=== PATIENT | female | born 1955 | race Caucasian/White ===

== ENCOUNTER 2023-09-22 11:19 | Outpatient (OUT) | payer OTHER, SELFPAY ==
--- NOTE | 2023-09-22 11:23 | XR_ITS ---
The [address] [address] Patient Name: MLEBA ZAPATA MRN: [id number] date: 1955 Sex: F Assigned Patient Location: [facility] Current Patient Location: Accession/Order Number: [id number] Exam Date: 09/22/2023 11:25 Report Date: 09/23/2023 07:30 At the request of: DENIA DIETRICH Procedure: XR wrist RT min 3V EXAM: XR wrist RT min 3V HISTORY: Intartic Fracture Of Right Radius COMPARISON: 09/10/2023. TECHNIQUE: Routine views of the XR wrist RT min 3V FINDINGS/ XR/XR wrist RT min 3V IMPRESSION: 1. Casted upper extremity. No significant change in radiographic appearance of the minimally displaced distal radial fracture. 2. Soft tissues not well assessed. 3. Advanced first CMC osteoarthritis. Mild degenerative changes at the DRUJ and triscaphe joint. Electronically authenticated by: SAMEER DUMONT Date: 09/23/2023 07:30
== END 2023-09-22 11:20 | disposition home or self-care (01) ==
LOC: RAD 11:19
PROVIDERS: Visit Provider Orthopaedic Surgery
DX: S52.571A Other intraarticular fracture of lower end of right radius, initial encounter for closed fracture (principal)
CPT/HCPCS: 73110

== ENCOUNTER 2023-09-29 11:01 | Outpatient (OUT) | payer OTHER, SELFPAY ==
--- NOTE | 2023-09-29 11:05 | XR_ITS ---
The [address] [address] Patient Name: MELBA ZAPATA MRN: [id number] date: 1955 Sex: F Assigned Patient Location: [facility] Current Patient Location: [facility] Accession/Order Number: [id number] Exam Date: 09/29/2023 11:10 Report Date: 09/30/2023 08:39 At the request of: DENIA DIETRICH Procedure: XR wrist RT min 3V PROCEDURE: XR wrist RT min 3V HISTORY: Other Intartic Fracture Of Lower End of Radius S52.571A [; follow-up right wrist fracture COMPARISON: XR wrist right 09/22/2023 FINDINGS: BONES:Stable distal radial metaphyseal fracture with slight dorsal angulation of the distal articular surface. Degenerative changes of the first carpal-metacarpal joint. SOFT TISSUES:Images were obtained through cast material which slightly limits evaluation. EFFUSION:None visible. OTHER: Negative. XR/XR wrist RT min 3V IMPRESSION: 1. Grossly stable alignment and ongoing bone healing of distal right radius fracture. Electronically authenticated by: DENIA JOHNS Date: 09/30/2023 08:39
== END 2023-09-29 11:02 | disposition home or self-care (01) ==
LOC: RAD 11:02
PROVIDERS: Visit Provider Orthopaedic Surgery
DX: S52.571A Other intraarticular fracture of lower end of right radius, initial encounter for closed fracture (principal)
CPT/HCPCS: 73110

== ENCOUNTER 2023-09-29 13:26 | Outpatient (OUT) | payer OTHER, SELFPAY ==
--- NOTE | 2023-09-29 13:49 | ECG_ITS ---
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
--- NOTE | 2023-09-29 14:25 | XR_ITS ---
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 CLINICAL INDICATION: 68 years Female Preop exam FINDINGS: The cardiomediastinal silhouette and pulmonary vasculature are within normal limits. There is moderate diffuse coarse increased markings throughout all lung ramos. This may represent prominent chronic lung changes. Other etiologies such as some diffuse interstitial fluid or some diffuse interstitial inflammatory infiltrate are possible but considered less likely, especially considering that this is described as a preop exam . There is no evidence of pleural effusion or pneumothorax. XR/XR chest 2V IMPRESSION: Moderate diffuse coarse increased markings throughout all lung ramos most likely represents chronic lung changes. Electronically authenticated by: MARLENY ALBRIGHT Date: 09/30/2023 07:24
[2023-09-29 14:41] LABS: Basophils Absolute Auto 0.1 10^3/uL (0.0-0.1); Basophils Percent Auto 0.8 % (0.2-2.0); Eosinophils Absolute Auto 0.3 10^3/uL (0.0-0.7); Eosinophils Percent Auto 2.1 % (0.9-7.0); Hematocrit 45.8 % (36.0-48.0); Hemoglobin 14.8 g/dL (12.0-16.0); Immature Granulocytes Abs Auto 0.03 10^3/uL (0.00-0.03); Immature Granulocytes Pct Auto 0.2 % (0.0-0.5); Lymphocytes Absolute Auto 2.9 10^3/uL (1.2-3.8); Lymphocytes Percent Auto 23.3 % (20.5-60.0); Mean Corpuscular HGB Conc 32.3 g/dL (29.9-35.2); Mean Corpuscular Hemoglobin 30.8 pg (26.7-34.0); Mean Corpuscular Volume 95.2 fL (81.0-99.0); Mean Platelet Volume 9.1 fL (9.5-13.5); Monocytes Absolute Auto 0.7 10^3/uL (0.3-0.8); Monocytes Percent Auto 5.4 % (1.7-12.0); Neutrophils Absolute Auto 8.5 10^3/uL (1.4-6.5); Neutrophils Percent Auto 68.2 % (43.0-75.0); Platelet Count 305 10^3/uL (150-450); Red Blood Count 4.81 10^6/uL (4.20-5.40); Red Cell Distribution Width 12.7 % (11.0-15.0); White Blood Count 12.5 10^3/uL (4.0-11.0)
[2023-09-29 15:26] LABS: Anion Gap 12.2; BUN Creatinine Ratio 15.7; Carbon Dioxide 25.3 mmol/L (21.0-32.0); Chloride 107 mmol/L (98-107); Estimated GFR (African America >60 (>=60); Estimated GFR (Non-African Ame >60 (>=60); Glucose 95 mg/dL (74-106); Potassium 3.5 mmol/L (3.5-5.1); Sodium 141 mmol/L (136-145)
== END 2023-09-29 13:27 | disposition home or self-care (01) ==
LOC: PST 13:30
PROVIDERS: Visit Provider Orthopaedic Surgery
DX: Z01.812 Encounter for preprocedural laboratory examination (principal); S52.571A Other intraarticular fracture of lower end of right radius, initial encounter for closed fracture
CPT/HCPCS: 71046; 80048; 85025; 93005

== ENCOUNTER 2023-10-13 09:33 | Outpatient (OUT) | payer OTHER, SELFPAY ==
--- NOTE | 2023-10-13 09:46 | XR_ITS ---
[address] [address] Patient Name: MELBA ZAPATA MRN: [id number] date: 1955 Sex: F Assigned Patient Location: [facility] Current Patient Location: [facility] Accession/Order Number: [id number] Exam Date: 10/13/2023 09:40 Report Date: 10/13/2023 10:41 At the request of: DENIA DIETRICH Procedure: XR wrist RT min 3V PROCEDURE: XR wrist RT min 3V COMPARISON: 09/29/2023, 10/03/2023 HISTORY: Intra Articular Fracture Of Distal End Of Right Radius S52.5 FINDINGS: BONES:Again demonstrated is a complex intra-articular fracture of the distal radius with internal fixation utilizing a plate and screws. Anatomic alignment. No acute fracture, dislocation or mechanical failure. Degenerative changes with joint space narrowing marginal osteophyte formation most significant at the first metacarpal joint SOFT TISSUES:Negative. No visible soft tissue swelling. EFFUSION:None visible. OTHER: Negative. XR/XR wrist RT min 3V IMPRESSION: Stable radius fracture with internal fixation Electronically authenticated by: ROSHNI ABBOTT Date: 10/13/2023 10:41
== END 2023-10-13 09:34 | disposition home or self-care (01) ==
LOC: RAD 09:33
PROVIDERS: Visit Provider Orthopaedic Surgery
DX: S52.571D Other intraarticular fracture of lower end of right radius, subsequent encounter for closed fracture with routine healing (principal)
CPT/HCPCS: 73110

== ENCOUNTER 2023-11-10 10:38 | Outpatient (OUT) | payer OTHER, SELFPAY ==
--- NOTE | 2023-11-10 | XR_ITS ---
The [address] [address] Patient Name: MELBA ZAPATA MRN: [id number] date: 1955 Sex: F Assigned Patient Location: [facility] Current Patient Location: [facility] Accession/Order Number: [id number] Exam Date: 11/10/2023 10:40 Report Date: 11/10/2023 10:54 At the request of: DENIA DIETRICH Procedure: XR wrist RT 2V PROCEDURE: XR wrist RT 2V COMPARISON: 10/13/2023 HISTORY: RIGHT WRIST PAIN FINDINGS: BONES:Stable complex distal radius fracture with internal fixation utilizing a bulbar plate and screws. Anatomic alignment. Moderate degenerative changes most significant at the first carpometacarpal joint SOFT TISSUES:Negative. No visible soft tissue swelling. EFFUSION:None visible. OTHER: Negative. XR/XR wrist RT 2V IMPRESSION: Stable internal fixation of a distal radius fracture Electronically authenticated by: ROSHNI ABBOTT Date: 11/10/2023 10:54
--- OUTSIDE RECORDS SUMMARY | 2023-11-10 10:42 | XMS_ITS | CCD ---
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 Name Role Phone RUBENS SERNA Monik Unavailable Unavailable CAMRYN BARBOSA Unavailable Unavailable Martha Hathaway Primary Care Physician Nia Wolff Unavailable Unavailable DR DENIA JOHNS Consulting Unavailable MIGUEL COLEMAN Attending Unavailable MIGUEL COLEMAN Admitting Unavailable MIGUEL COLEMAN Consulting Unavailable DARIO VANG Attending Unavailable DENIA DIETRICH Referring Unavailable DENIA DIETRICH Admitting Unavailable DENIA DIETRICH Attending Unavailable Miguel Atkins Primary Care Physician [phone] Beatrice Barnes Attending Unavailable MD Wilbert Miguel Attending Unavailable MD Wilbert Miguel Attending Unavailable Ricki VAZQUEZ Attending Unavailable Som Willis Attending Unavailable Rai Gordillo Attending Unavailable MD Wilbert Miguel Attending Unavailable Allergies Allergy Classification Reported Allergen(s) Allergy Type Date of Onset Reaction(s) Facility (7 sources) Contrast media; Translations: [CONTRAST DYE] Propensity to adverse reactions to drug (disorder) 7 Swelling (finding) [facility] Repository (9 sources) Penicillins; Translations: [PENICILLINS] Propensity to adverse reactions to drug (disorder) 7 H/O: blackout (context-depend ent category) [facility] Repository (6 sources) adhesives; Translations: [adhesives] Allergy to substance redness [facility] (1 source) Iodine (And Iodine Containting Drugs) Drug allergy (disorder) [address] [facility] Repository (1 source) IODINATED CONTRAST MEDIA; Translations: [IODINATED CONTRAST MEDIA] Propensity to adverse reactions to drug (disorder) 7 [facility] Repository Medications Current Medications Medication Drug Class(es) Dates Sig (Normalized) Sig (Original) amLODIPine 5 mg oral tablet (1 source) Dihydropyridine Calcium Channel Cyrus Start: 05-17-2020 take 1 tablet by mouth once daily Norvasc 5 mg Tab 5 mg = 1 tab(s), Oral, Daily, # 90 cap(s), Refills(s) 3, Pharmacy: [facility], 170.1, cm, 12/28/19 11:34:00 EST, Height/Length Measured, 106, kg, 10/06/19 11:07:00 EST, Weight Measured Start Date: 05/17/20 Status: Ordered cholecalciferol 0.05 mg oral capsule (1 source) Vitamin D Start: 04-18-2022 End: 08-16-2022 take 1 capsule by mouth once daily at mealtime cholecalciferol 2000 intl units oral capsule 50 mcg = 1 cap(s), Oral, Daily, with food., X 60 day(s), # 90 cap(s), Refills(s) 1, Pharmacy: [facility], 163.8, cm, 04/18/22 15:45:00 EDT, Height/Length Dosing, 93.7, kg, 04/18/22 15:45:00 EDT, Weight Dosing Start Date: 04/18/22 Stop Date: 08/16/22 Status: Ordered doxycycline monohydrate 100 mg oral capsule (1 source) Tetracycline-class Drug Start: 08-21-2023 End: 08-28-2023 take 1 capsule by mouth twice daily doxycycline monohydrate 100 mg oral capsule 100 mg = 1 cap(s), Oral, BID, X 7 day(s), # 14 cap(s), Refills(s) 0, Pharmacy: [facility], 167, cm, 08/21/23 14:00:00 EDT, Height/Length Dosing, 100, kg, 08/21/23 14:00:00 EDT, Weight Dosing Start Date: 08/21/23 Stop Date: 08/28/23 Status: Ordered DULoxetine 60 mg delayed release oral capsule (4 sources) Serotonin and Norepinephrine Reuptake Inhibitor Start: 08-12-2023 take 1 capsule by mouth once daily duloxetine 60 mg oral delayed release capsule 60 mg = 1 cap(s), Oral, Daily, # 90 cap(s), Refills(s) 0, Pharmacy: [facility], 163, cm, 10/21/22 13:43:00 EST, Height/Length Dosing, 98.4, kg, 10/21/22 13:43:00 EST, Weight Dosing Start Date: 08/12/23 Status: Ordered Start: 04-18-2022 take 1 capsule by [facility] once daily DULoxetine 60 mg Cap-EC 60 mg = 1 cap(s), Oral, Daily, # 90 cap(s), Refills(s) 3, Pharmacy: [facility], 163.8, cm, 04/18/22 15:45:00 EDT, Height/Length Dosing, 93.7, kg, 04/18/22 15:45:00 EDT, Weight Dosing Start Date: 04/18/22 Status: Ordered Start: 05-18-2020 take 1 capsule by [facility] once daily DULoxetine 40 mg oral delayed release capsule 40 mg, Oral, Daily, # 90 cap(s), Refills(s) 1, Pharmacy: [facility], 170.1, cm, 05/18/20 17:03:00 EDT, Height/Length Measured, 112.3, kg, 05/18/20 17:35:00 EDT, Weight Measured Start Date: 05/18/20 Status: Ordered DULoxetine 60 mg Cap-EC (2 sources) Start: 05-02-2022 take 1 capsule by mouth once daily DULoxetine 60 mg Cap-EC 60 mg = 1 cap(s), Oral, Daily, # 90 cap(s), Refills(s) 3, Pharmacy: [facility]/pharmacy #[id number], 163.8, cm, 04/18/22 15:45:00 EDT, Height/Length Dosing, 93.7, kg, 04/18/22 15:45:00 EDT, Weight Dosing Start Date: 05/02/22 Status: Ordered Start: 08-30-2021 take 1 capsule by [facility] once daily DULoxetine 60 mg Cap-EC 60 mg = 1 cap(s), Oral, Daily, # 30 cap(s), Refills(s) 6, Pharmacy: [facility], 170, cm, 08/30/21 14:36:00 EDT, Height/Length Dosing, 89.2, kg, 08/30/21 14:36:00 EDT, Weight Dosing Start Date: 08/30/21 Status: Ordered fluticasone propionate 0.05 mg/actuat metered dose nasal spray (2 sources) Corticosteroid Start: 10-21-2022 take 1 spray(s) nasal route twice daily Flonase 0.05 mg/inh [place] 1 spray(s), Nasal, BID, 16 gram, Refill(s) 0, each nostril, [facility], 163, cm, 10/21/22 13:43:00 EST, Height/Length Dosing, 98.4, kg, 10/21/22 13:43:00 EST, Weight Dosing Start Date: 10/21/22 Status: Ordered Start: 10-26-2020 fluticasone 0. 05 mg/inh Nasal [place] 2 spray(s), Nasal, Daily Congestion, 16 gram, Refill(s) 1, each nostril, [facility], 170, cm, 10/26/20 7:12:00 EST, Height/Length Dosing, 102, kg, 10/26/20 7:12:00 EST, Weight Dosing Start Date: 10/26/20 Status: Ordered fluticasone 0.05 mg/inh [place]asa [place] (1 source) Start: 10-26-2020 fluticasone 0. 05 mg/inh Nasal [place] 2 spray(s), Nasal, Daily Congestion, 16 gram, Refill(s) 1, each nostril, [facility], 170, cm, 10/26/20 7:12:00 EST, Height/Length Dosing, 102, kg, 10/26/20 7:12:00 EST, Weight Dosing Start Date: 10/26/20 Status: Ordered Mucinex DM 30 mg-600 mg Tab- ER (1 source) Start: 10-21-2022 End: 10-24-2022 Mucinex DM 30 mg-600 mg Tab- ER 1 tab(s), Oral, q12hr Congestion for 3 day(s), 6 tab(s), Refill(s) 0, [facility], 163, cm, 10/21/22 13:43:00 EST, Height/Length Dosing, 98.4, kg, 10/21/22 13:43:00 EST, Weight Dosing Start Date: 10/21/22 Stop Date: 10/24/22 Status: Ordered Completed/Discontinued Medications Medication Drug Class(es) Dates Sig (Normalized) Sig (Original) Blood pressure cuff (3 sources) Start: 08-30-2021 Blood pressure cuff Blood pressure cuff, See Instructions, 1 EA, 0, Please dispense 1 blood pressure cuff., [facility], Supply, 170, cm, 08/30/21 14:36:00 EDT, Height/Length Dosing, 89.2, kg, 08/30/21 14:36:00 EDT, Weight Dosing Start Date: 08/30/21 Status: Ordered Problems Active Problems Problem Classification Problem Date Documented Date Episodic/Chronic Abdominal pain (5 sources) Flank pain 08-24-2019 Episodic Anxiety disorders (6 sources) Anxiety; Translations: [Anxiety disorder] Onset: 2 05-25-2019 Chronic Asthma (5 sources) Asthma 12-14-2018 Chronic Calculus of urinary tract (5 sources) Kidney stone 09-21-2019 Episodic Diabetes mellitus without complication (6 sources) Hyperglycemia; Translations: [Hyperglycemia, unspecified] Onset: 3 05-25-2019 Episodic Diseases of mouth; excluding dental (1 source) Sialoadenitis; Translations: [Sialoadenitis, unspecified] Onset: 3 Episodic Disorders of lipid metabolism (6 sources) Mixed hyperlipidemia; Translations: [Mixed hyperlipidemia] Onset: 2 07-25-2020 Chronic E Codes: Fall (1 source) Fall; Translations: [Unspecified fall, initial encounter] Onset: 3 Episodic Essential hypertension (7 sources) Benign essential hypertension; Translations: [Essential hypertension] Onset: 2 05-25-2019 Chronic Fracture of upper limb (2 sources) Other intraarticular fracture of lower end of right radius, initial encounter for closed fracture; Translations: [Other intraarticular fracture of lower end of right radius, initial encounter for closed fracture] Onset: 3 Episodic Genitourinary symptoms and ill-defined conditions (5 sources) Urge incontinence of urine 04-28-2019 Chronic Genitourinary symptoms and ill-defined conditions (10 sources) Nocturia; Translations: [Urgent desire to urinate] 04-28-2019 Episodic Hypertension with complications and secondary hypertension (2 sources) Hypertensive heart disease without heart failure; Translations: [Hypertensive heart disease without heart failure] Onset: 3 Chronic Immunizations and screening for infectious disease (1 source) Vaccination given; Translations: [Encounter for immunization] Onset: 3 Episodic Mood disorders (7 sources) Depressive disorder; Translations: [Major depressive disorder] Onset: 2 05-25-2019 Chronic Nutritional deficiencies (6 sources) Vitamin D deficiency; Translations: [Vitamin D deficiency, unspecified] Onset: 2 05-25-2019 Chronic Osteoarthritis (5 sources) Osteoarthritis of hip 08-09-2019 Chronic Other bone disease and musculoskeletal deformities (5 sources) Osteopenia 06-03-2019 Episodic Other bone disease and musculoskeletal deformities (1 source) Disorder of bone; Translations: [Other specified disorders of bone density and structure, unspecified site] Onset: 3 Episodic Other connective tissue disease (4 sources) Pain in right foot; Translations: [PAIN IN RIGHT FOOT] Onset: 2 Episodic Other diseases of kidney and ureters (5 sources) Hydronephrosis 09-21-2019 Episodic Other injuries and conditions due to external causes (1 source) Personal history of (healed) traumatic fracture; Translations: [Personal history of (healed) traumatic fracture] Onset: 3 Episodic Other non-traumatic joint disorders (5 sources) Hip pain 05-25-2019 Episodic Other nutritional; endocrine; and metabolic disorders (6 sources) Body mass index 30+ - obesity 06-22-2020 Chronic Other nutritional; endocrine; and metabolic disorders (1 source) Obese class I; Translations: [Body mass index (BMI) 34.0-34.9, adult] Onset: 2 Chronic Other nutritional; endocrine; and metabolic disorders (10 sources) Obesity; Translations: [Obesity, unspecified] Onset: 2 Chronic Other nutritional; endocrine; and metabolic disorders (2 sources) Obese class II; Translations: [Body mass index (BMI) 37.0-37.9, adult] Onset: 2 Chronic Other screening for suspected conditions (not mental disorders or infectious disease) (2 sources) Abnormal electrocardiogram [ECG] [EKG]; Translations: [Abnormal electrocardiogram (ECG) (EKG)] Onset: 3 Episodic Other skin disorders (5 sources) Mucous membrane dryness 09-24-2021 Episodic Other upper respiratory disease (1 source) Nasal congestion; Translations: [Nasal congestion] Onset: 2 Episodic Other upper respiratory disease (3 sources) Congestion of nasal sinus 10-21-2022 Episodic Other upper respiratory infections (1 source) Chronic sinusitis; Translations: [Chronic sinusitis, unspecified] Onset: 3 Chronic Residual codes; unclassified (5 sources) Tobacco user 08-30-2021 Episodic Residual codes; unclassified (1 source) Patient encounter status; Translations: [Other specified health status] Onset: 2 Episodic Residual codes; unclassified (1 source) Other specified postprocedural states; Translations: [Other specified postprocedural states] Onset: 3 Episodic Screening and history of mental health and substance abuse codes (1 source) H/O: Disorder; Translations: [Personal history of nicotine dependence] Onset: 3 Episodic Spondylosis; intervertebral disc disorders; other back problems (5 sources) Displacement of cervical intervertebral disc 05-25-2019 Chronic Spondylosis; intervertebral disc disorders; other back problems (5 sources) Neck pain; Translations: [Cervicalgia] Onset: 2 Episodic Substance-related disorders (12 sources) Smoker; Translations: [Nicotine dependence] Onset: 2 05-18-2020 Chronic Comment on above: Added secondary to d ocumentation in Social History. Systemic lupus erythematosus and connective tissue disorders (5 sources) Systemic sclerosis 03-22-2019 Chronic Comment on above: inactive Unclassified (5 sources) Clinical finding absent 08-30-2021 Past or Other Problems Problem Classification Problem Date Documented Da te Episodic/Chronic Unclassified (1 source) Exposure to 2019 novel coronavirus; Translations: [Contact with and (suspected) exposure to COVID19] Results Test Name Value Interpretation Reference Range Facil ity Consent for Flu Vaccineon Consent for Flu Vaccine [id number] Normal [facility] Family Medicine Office/Clini c Noteon 10-31-2023 Family Medicine Office/Clinic Note Chief Complaint Subsequent Medicare Wellness Visit Review of Systems PHQ Score Initial Depression Screen Score: 1 SCORE Physical Exam Vitals & Measurements T: 36.9 ?C(Oral) HR: 74(Peripheral) BP: 130/86 SpO2: 95% HT: 162.56 cm HT: 64 in WT: 100.5 kg WT: 221.1 lb BMI: 38.03 Assessment/Plan 1. Encounter for annual general medical examination with abnormal findings in adult (Z00.01: Encounter for general adult medical examination with abnormal findings) The patient was given a customized and personalized print out of all the current AHRQ USPSTF?s recommendations for preventative services and all current CDC recommended immunizations, relevant risk recommendations and the following patient brochures were given. Reviewed Medicare Prevention Services checklist. CDC-Falls Prevention and home safety screening reviewed. Patient had fall last month, ED visit and wrist fracture with surgery needed. Does voice worry about falling. Exhibits no problems with sitting, standing or ambulation today. Patient aware with keeping walk way area free of clutter to prevent tripping and/or falling. [place] Advance Directives reviewed. Packet received in the past, encouraged to completes and have scanned to chart. Patient denies any problems with ADL?s and Instrumental ADL?s. Cognitive screening completed with memory and clock face drawing. No deficits noted. Immunization record reviewed, discussed Shingrix vaccine with educational handout and availability. COVID vaccines have been received. Allergies and medications reviewed and up to date. No concerns with taking medication as prescribed. Reviewed OTC medications, medication list up to date. Blood tests were reviewed: Discussed what tests need to be updated. No labs ordered with today's visit. Will discuss with provider at next visit. No concerns with bowel/ bladder, denies family history of cancer. Colonoscopy last completed with Dr Ruvalcaba, will follow up as needed. Reviewed pain symptoms : pain to right wrist, recovery from surgery and knee pain, needs a replacement, no pain medications taken. Declines referrals at this time, wants to complete wrist recovery. Mammogram and Dexa scan declined at this time, will follow up at a later time. Reviewed all outside providers that patient follows. Last visit summary notes available in chart and/or have been requested. Patient drinks alcohol 1-2 times yearly, 1 drink. 8 minutes spent with screening and documentation. Audit score . Follow up scheduled with a new PCP in the New Year, closer for her. AWV has been scheduled, 07/13/2024. Abnormal findings with fall risk. 2. Depression (F32.A: Depression, unspecified) PHQ-9 completed with score 6. Taking Cymbalta daily as ordered, states effectiveness of medication. Denies concerns, voices no suicidal ideations. Encouraged to review signs and symptoms to monitor for and report to PCP. Will continue to follow up as needed. Medications managed with office visits, OPIOD risk with OARRS completed with PCP. 3. Benign essential HTN (I10: Essential (primary) hypertension) No medications taken for Hypertension at this time. BP is not monitored at home, Patient does voice understanding with signs and symptoms to monitor for. HTN reviewed with importance of keeping BP <140/90 to prevent increased cardiovascular risks. DASH diet reviewed with importance to lower salt intake, eat more chicken, fish and lean white meats. Will follow up as needed. 4. Fall within last year (W19.XXXA: Unspecified fall, initial encounter) Fall Risk Assessment reviewed with abnormal findings. Discussed referral to PT for strengthening and/or balance needs. Will start Therapy in the near future for wrist recovery from fall. Plan of care reviewed : Upon standing up, do not start ambulating quickly and be aware of feeling dizzy which could increase fall risk. Patient to be aware of surroundings at all times. Make sure proper lighting is on, do not ambulate at night in the dark. Remove area rugs that are in walkway to prevent tripping. Always use caution with stairs, check banister railing for sturdiness. Fall safety and prevention reviewed, will continue to monitor during visits. 5. Pneumococcal vaccine administered (Z23: Encounter for immunization) Pneumovax 23 vaccine administered to left deltoid at today?s visit. Patient tolerated well, denies concerns. Signed consent form on file in patient?s chart. Educational handout provided. 6. Hyperglycemia (R73.9: Hyperglycemia, unspecified) Screened for type 2 diabetes. Risk score: 7. Patient does have a family history with Diabetes. BS reviewed with patient reminded to follow ADA dietary recommendations. Monitor portion control with carbs/fats/sat. fats. Will continue to follow up with labs as needed. 7. Cigarette smoker within last 12 months (Z87.891: Personal history of nicotine dependence) It is strongly recommend to quit tobacco use. Cigarette smoking harms nearly every organ of the body, causes many disease (more content not included)... [facility] Comment on above: Result Comment: Electronically Signed By : SIENNA CONSTANTINO, Aakash Ruggiero\.br\Date and Time Signed: 10/31/23 12:38 EST\.br\Electronically Co-Signed By: Tiffanie Yi LPN\.br\Date and Time Co-Signed: 10/30/23 16:16 EST [place] 10-31-2023 Screens [id number] Normal [facility] Ambulatory Visit Summaryon 1 12-31-2022 Ambulatory Visit Summary MELBA TEJADA :1955 Visit Date:10/30/2023 Ambulatory Visit Instructions Your Diagnosis Encounter for annual general medical examination with abnormal findings in adult Depression Benign essential HTN Fall within last year Pneumococcal vaccine administered Hyperglycemia Cigarette smoker within last 12 months Osteopenia BMI 38.0-38.9,adult Obesity due to excess calories Your Care Team Attending Physician - Miguel Atkins MD Primary Care Physician - Miguel Atkins MD This Is Your Medications List duloxetine (duloxetine 60 mg oral delayed release capsule) Procedures Performed Cataract extraction and insertion of intraocular lens (10/12/2019), Cataract extraction and insertion of intraocular lens (09/28/2019), Total hip replacement (08/31/2019), Epidural injection of cervical spine using fluoroscopic guidance (05/18/2019), Epidural injection of cervical spine using fluoroscopic guidance (05/18/2019), cysto, left stent removal (04/01/2019), cysto, stone extraction, left stent placement (03/22/2019), CYSTOSCOPY, LEFT RETROGRADE, STONE EXTRACTION WITH BASKET , LEFT URETERAL STENT INSERTION (03/22/2019), Repair of hammer toe (12/24/2018), Bunionectomy (11/05/2018), Left hip steroid injection (04/13/2018), Transforaminal Epidural Steriod Injection Lt. L4, L5 (03/16/2018), Injection of hip using fluoroscopic guidance (11/05/2017), transforimanal Epidural steriod injection (05/04/2017), cysto lt retrograde lt ureteroscopy holmium laser fragment removal of stone lt j stent with string. (10/30/2016), Excision of anterior tongue lesion with repair (10/09/2016), Appendectomy, Colonoscopy, Lithotripsy, Ovarian cystectomy, Suspension of bladder, TUBAL LIGATION. Discharge Vitals Temperature (Oral) 36.9 ?C Heart Rate (Peripheral) 74 Blood Pressure 130/86 Height 162.56 cm Height 64 in Weight 100.5 kg Weight 221.1 lb BMI 38.03 What to do next Scheduled Follow-Up Appointments Friday 1:15 PM EST With: Where: [facility] Friday 4:00 PM EST With: Beatrice Ingram Where: [facility] Normal [address], [place] [address]- \.br\ Medications\.br \ What How Much When Why Instructions\.b r\ Unchanged duloxetine (duloxetine 60 mg oral delayed release capsule) 1 Capsules By Mouth Every day Anxiety Depression\.br\ Medications and Immunizations Administered\.b r\ Given\.br\ Pneumovax 23, 0.5 mL, IntraMuscular. For:\.br\ pneumococcal 23-valent vaccine, IntraMuscular\. br\ Allergies\.br\ Contrast Dye (Swelling, Hives)\.br\ adhesives (redness)\.br\ penicillins (Passed out, Hives)\.br\ Problems\.br\ Ongoing - Any problem that you are currently receiving treatment for.\.br\ Benign essential HTN\.br\ Class 1 obesity with body mass index (BMI) of 34.0 to 34.9 in adult\.br\ Depression\.br\ Flank pain\.br\ Herniated cervical disc\.br\ Hip pain, left\.br\ Hydronephrosis\ .br\ Hyperglycemia\. br\ Hyperlipidemia\ .br\ Kidney stones\.br\ Neck pain on right side\.br\ Nocturia\.br\ Obesity due to excess calories\.br\ Osteopenia\.br\ Patient had no falls in past year\.br\ Sinus congestion\.br\ Smoker\.br\ Urge incontinence\.b r\ Urinary urgency\.br\ Vitamin D deficiency\.br\ Historical - Any problem that you are no longer receiving treatment for.\.br\ Anxiety\.br\ Asthma\.br\ BMI 37.0-37.9, adult\.br\ Sicca syndrome\.br\ Smoker\.br\ Tobacco abuse\.br\ Patient Survey\.br\ You may receive a survey via text or e-mail asking about your office visit. Please share your experience with us by completing your survey. We appreciate your feedback and thank you for choosing us for your care.\.br\ Education Materials\.br\ Pneumococcal Polysaccharide Vaccine (PPSV23): What You Need to Know\.br\ 1. Why get vaccinated?\.br \ Pneumococcal polysaccharide vaccine (PPSV23) can prevent pneumococcal disease.\.br\ Pneumococcal disease refers to any illness caused by pneumococcal bacteria. These bacteria can cause many types of illnesses, including pneumonia, which is an infection of the lungs. Pneumococcal bacteria are one of the most common causes of pneumonia.\.br\ Besides pneumonia, pneumococcal bacteria can also cause:\.br\ ? \.br\ Ear infections\.br\ ? \.br\ Sinus infections\.br\ ? \.br\ Meningitis (infection of the tissue covering the brain and spinal cord)\.br\ ? \.br\ Bacteremia (bloodstream infection)\.br\ Anyone can get pneumococcal disease, but children under 2 years of age, people with certain medical conditions, adults 65 years or older, and cigarette smokers are at the highest risk.\.br\ Most pneumococcal infections are mild. However, some can result in long-term problems, such as brain damage or hearing loss. Meningitis, bacteremia, and pneumonia caused by pneumococcal disease can be fatal.\.br\ 2. PPSV23\.br\ PPSV23 protects against 23 types of bacteria that cause pneumococcal disease.\.br\ PPSV23 is recommended for:\.br\ ? \.br\ All adults 65 years or older,\.br\ ? \.br\ Anyone 2 years or older with certain medical conditions that can lead to an increased risk for pneumococcal disease.\.br\ Most people need only one dose of PPSV23. A second dose of PPSV23, and another type of pneumococcal vaccine called PCV13, are recommended for certain high-risk groups. Your health care provider can give you more information.\.b r\ People 65 years or older should get a dose of PPSV23 even if they have already gotten one or more doses of the vaccine before they turned 65.\.br\ 3. Talk with your health care provider\.br\ Tell your vaccine provider if the person getting the vaccine:\.br\ ? \.br\ Has had an allergic reaction after a previous dose of PPSV23, or has any severe, life-threatenin g allergies.\.br\ In some cases, your health care provider may decide to postpone PPSV23 vaccination to a future visit.\.br\ People with minor illnesses, such as a cold, may be vaccinated. People who are moderately or severely ill should usually wait until they recover before getting PPSV23.\.br\ Your health care provider can give you more information.\.b r\ 4. Risks of a vaccine reaction\.br\ ? \.br\ Redness or pain where the shot is given, feeling tired, fever, or muscle aches can happen after PPSV23.\.br\ People sometimes faint after medical procedures, including vaccination. Tell your provider if you feel dizzy or have vision changes or ringing in the ears.\.br\ As with any medicine, there is a very remote chance of a vaccine causing a severe allergic reaction, other serious injury, or .\.br\ 5. What if there is a serious problem?\.br\ An allergic reaction could occur after the vaccinated person leaves the clinic. If you see signs of a severe allergic reaction (hives, swelling of the face and throat, difficulty breathing, a fast heartbeat, dizziness, or weakness), call 9--1 and get the person to the nearest hospital.\.br\ For other signs that concern you, call your health care provider.\.br\ Adverse reactions should be reported to the Vaccine Adverse Event Reporting System (VAERS). Your health care provider will usually file this report, or you can do it yourself. Visit the VAERS website at www.vaers.[facility]. ov or call . VAERS is only for reporting reactions, and VAERS staff do not give medical advice.\.br\ 6. How can I learn more?\.br\ ? \.br\ Ask your health care provider.\.br\ ? \.br\ Call your local or state health department.\.br \ ? \.br\ Contact the Centers for Disease Control and Prevention (CDC):\.br\ ? \.br\ Call (1-540-OIO-INFO ) or\.br\ ? \.br\ Visit CDC's website at www.cdc.gov/vac cines\.br\ Source: CDC Vaccine Information Statement PPSV23 Vaccine (09/01/2019)\.b r\ This same material is available at www.cdc.gov for no charge.\.br\ This information is not intended to replace advice given to you by your health care provider. Make sure you discuss any questions you have with your health care provider.\.br\ Document Revised: 09/18/2022 Document Reviewed: 07/22/2022 [employer] Patient Education ? 2022 [employer].br\ Understanding Your Risk for Falls\.br\ Each year, millions of people have serious injuries from falls. It is important to understand your risk for falling. Talk with your health care provider about your risk and what you can do to lower it. There are actions you can take at home to lower your risk and prevent falls.\.br\ If you do have a serious fall, make sure to tell your health care provider. Falling once raises your risk of falling again.\.br\ How can falls affect me?\.br\ Serious injuries from falls are common. These include:\.br\ ? \.br\ Broken bones, such as hip fractures.\.br\ ? \.br\ Head injuries, such as traumatic brain injuries (TBI) or concussion.\.br \ A fear of falling can cause you to avoid activities and stay at home. This can make your muscles weaker and actually raise your risk for a fall.\.br\ What can increase my risk?\.br\ There are a number of risk factors that increase your risk for falling. The more risk factors you have, the higher your risk of falling. Serious injuries from a fall happen most often to people older than age 65. Children and young adults ages 15?29 are also at higher risk.\.br\ Common risk factors include:\.br\ ? \.br\ Weakness in the lower body.\.br\ ? \.br\ Lack (deficiency) of vitamin D.\.br\ ? \.br\ Being generally weak or confused due to long-term (chronic) illness.\.br\ ? \.br\ Dizziness or balance problems.\.br\ ? \.br\ Poor vision.\.br\ ? \.br\ Medicines that cause dizziness or drowsiness. These can include medicines for your blood pressure, heart, anxiety, insomnia, or edema, as well as [facility] Patient Educationon 10-30-20 23 Patient Education Caregiving Understanding Your Risk for Falls Each year, millions of people have serious injuries from falls. It is important to understand your risk for falling. Talk with your health care provider about your risk and what you can do to lower it. There are actions you can take at home to lower your risk and prevent falls. If you do have a serious fall, make sure to tell your health care provider. Falling once raises your risk of falling again. How can falls affect me? Serious injuries from falls are common. These include: ? Broken bones, such as hip fractures. ? Head injuries, such as traumatic brain injuries (TBI) or concussion. A fear of falling can cause you to avoid activities and stay at home. This can make your muscles weaker and actually raise your risk for a fall. What can increase my risk? There are a number of risk factors that increase your risk for falling. The more risk factors you have, the higher your risk of falling. Serious injuries from a fall happen most often to people older than age 65. Children and young adults ages 15?29 are also at higher risk. Common risk factors include: ? Weakness in the lower body. ? Lack (deficiency) of vitamin D. ? Being generally weak or confused due to long-term (chronic) illness. ? Dizziness or balance problems. ? Poor vision. ? Medicines that cause dizziness or drowsiness. These can include medicines for your blood pressure, heart, anxiety, insomnia, or edema, as well as pain medicines and muscle relaxants. Other risk factors include: ? Drinking alcohol. ? Having had a fall in the past. ? Having depression. ? Having foot pain or wearing improper footwear. ? Working at a dangerous job. ? Having any of the following in your home: ? Tripping hazards, such as floor clutter or loose rugs. ? Poor lighting. ? Pets. ? Having dementia or memory loss. What actions can I take to lower my risk of falling? Physical activity Maintain physical fitness. Do strength and balance exercises. Consider taking a regular class to build strength and balance. Yoga and montrell chi are good options. Vision Have your eyes checked every year and your vision prescription updated as needed. Walking aids and footwear ? Wear nonskid shoes. Do not wear high heels. ? Do not walk around the house in socks or slippers. ? Use a cane or walker as told by your health care provider. Home safety ? Attach secure railings on both sides of your stairs. ? Install grab bars for your tub, shower, and toilet. Use a bath mat in your tub or shower. ? Use good lighting in all rooms. Keep a flashlight near your bed. ? Make sure there is a clear path from your bed to the bathroom. Use night-lights. ? Do not use throw rugs. Make sure all carpeting is taped or tacked down securely. ? Remove all clutter from walkways and stairways, including extension cords. ? Repair uneven or broken steps. ? Avoid walking on icy or slippery surfaces. Walk on the grass instead of on icy or slick sidewalks. Use ice melt to get rid of ice on walkways. ? Use a cordless phone. Questions to ask your health care provider ? Can you help me check my risk for a fall? ? Do any of my medicines make me more likely to fall? ? Should I take a vitamin D supplement? ? What exercises can I do to improve my strength and balance? ? Should I make an appointment to have my vision checked? ? Do I need a bone density test to check for weak bones or osteoporosis? ? Would it help to use a cane or a walker? Where to find more information ? Centers for Disease Control and Prevention, STEADI: www.cdc.gov ? Community-Based Fall Prevention Programs: www.cdc.gov ? National [place] on Aging: www.erich.nih.gov Contact a health care provider if: ? You fall at home. ? You are afraid of falling at home. ? You feel weak, drowsy, or dizzy. Summary ? Serious injuries from a fall happen most often to people older than age 65. Children and young adults ages 15?29 are also at higher risk. ? Talk with your health care provider about your risks for falling and how to lower those risks. ? Taking certain precautions at home can lower your risk for falling. ? If you fall, always tell your health care provider. This information is not intended to replace advice given to you by your health care provider. Make sure you discuss any questions you have with your health care provider. Document Revised: 05/23/2021 Document Reviewed: 05/23/2021 [employer] Patient Education ? 2022 [employer]. Infectious Disease Pneumococcal Polysaccharide Vaccine (PPSV23): What You Need to Know 1. Why get vaccinated? Pneumococcal polysaccharide vaccine (PPSV23) can prevent pneumococcal disease. Pneumococcal disease refers to any illness caused by pneumococcal bacteria. These bacteria can cause many types of illnesses, including pneumonia, which is an infection of the lungs. Pneumococca (more content not included)... [facility] [place] LESS THAN 1 HOURon 2022 [place] LESS THAN 1 HOUR Radiology exam is complete. No Radiologist dictation. Please follow up with ordering provider. Final result Normal [facility] Office Visiton 10-02-2023 Follow-up visit [id number] Diana Tejada 1955 F Date Provider Department Center 10/02/2023 [id number] VANG CARD [facility] Family History Problem Relation Age of Onset Atrial fibrillation Mother Diabetes Mother Other Mother Transient ischemic attack Father Stroke Maternal Grandmother Family Status - Relation Status Age at Mother Father Maternal Grandmother Level of Service:41860 NC OFFICE/OUTPATIENT NEW MODERATE MDM 45-59 MINUTES Normal [facility] CT Head or Brain w/o Contras ton 09-10-2023 CT Head or Brain w/o Contrast Exam Date/Time: 09/10/2023 12:35 EST Reason for Exam: HEAD TRAUMA, MOD-SEVERE;Other (please specify) Report IMPRESSION: No acute intracranial process. EXAMINATION: CT Head or Brain w/o Contrast HISTORY: HEAD TRAUMA, MOD-SEVERE. Fall with head injury. TECHNIQUE: Serial axial images without IV contrast were obtained from the vertex to the foramen magnum, with sagittal and coronal reconstructions. All CT scans at this facility use dose modulation, iterative reconstruction, and/or weight based dosing when appropriate to reduce radiation dose to as low as reasonably achievable. COMPARISON: None. RESULT: Acute change: No evidence of an acute contusion or other acute parenchymal process. Hemorrhage: No evidence of acute intracranial hemorrhage. Mass Lesion / Mass Effect: There is no evidence of an intracranial mass or extraaxial fluid collection. No significant mass effect. Chronic change: None apparent. Parenchyma: There is no significant volume loss. Ventricles: The ventricles are within normal limits of size and configuration for age. Paranasal sinuses and skull base: Mild thickening in the paranasal sinuses. Mastoid air cells clear. No evidence for acute skull fracture. Partially imaged low-attenuation cystic-appearing lesion within the superficial right masseter musculature measuring around 1.3 cm. This is overall nonspecific but may be sequela of remote trauma/injury such as resolving seroma/hematoma. Report Ordering Provider: Sushil Villarreal FINAL REPORT Dictated: 09/10/2023 12:58 pm Merrick Torrez MD Signed (Electronic Signature): 09/10/2023 12:58 pm Signed by: Merrick Torrez MD Transcribed by: PRIMO Technologist: TERRY Pope [facility] CT Spine Cervical w/o Phani garza 09-10-2023 CT Spine Cervical w/o Contrast Exam Date/Time: 09/10/2023 12:35 EST Reason for Exam: Neck pain, acute, no red flags;Other (please specify) Report IMPRESSION: No acute fracture or traumatic malalignment. EXAMINATION: CT Spine Cervical w/o Contrast HISTORY: Neck pain, acute, no red flags. TECHNIQUE: CT of the cervical spine without IV contrast. Spiral, high resolution axial images were obtained from the skull base to the cervicothoracic junction with sagittal and coronal planar reconstructions. All CT scans at this facility use dose modulation, iterative reconstruction, and/or weight based dosing when appropriate to reduce radiation dose to as low as reasonably achievable. COMPARISON: Radiographs 02/27/2017. Cervical MRI 02/27/2017. RESULT: Counting reference: Craniocervical junction. Alignment: No traumatic malalignment. Straightening of the cervical lordosis, likely positional or related to muscle spasm. Craniocervical junction: Alignment maintained. Degenerative changes at C1-C2. Osseous structures/fracture: No evidence for acute fracture. No destructive osseous lesions. Underlying decreased bone mineral density. Cervical soft tissues: Emphysematous changes in the lung apices. Paraspinal tissues otherwise grossly unremarkable. Canal and foramina, degenerative changes: Multilevel degenerative changes with disc height loss, endplate osteophytes, facet degenerative changes, worst at the C4-C5, C5-C6, and C6-C7 levels, similar to slightly worsened from the prior cervical MRI. Report Ordering Provider: Sushil Villarreal FINAL REPORT Dictated: 09/10/2023 1:03 pm Merrick Torrez MD Signed (Electronic Signature): 09/10/2023 1:03 pm Signed by: Merrick Torrez MD Transcribed by: PRIMO Technologist: [facility] Consent for Treatmenton Consent for Treatment [id number] [facility] Discharge Instructionson Discharge Instructions [id number] [facility] ED Clinical Summaryon 2022 ED Clinical Summary [place] [id number] ED Clinical Summary Person Information Name: MELBA TEJADA [place] Age: 68 Years : 1955 Sex: Female Language: St Lucian PCP: Martha Hathaway CNP Marital Status: Phone: [phone] Visit Id: Visit Reason: Knee pain-swelling; Wrist pain-swelling; Fall; FALL, KNEE AND WRIST INJURY - WORK RELATED INJURY Speciality: Acuity: 3 Enc Type: Emergency Med Service: Emergency Arrival: 09/10/2023 11:36:20 Discharge: 09/10/2023 14:28:42 LOS: 000 02:52 Checkin: 09/10/2023 11:36:20 Checkout: 09/10/2023 14:28:42 Dispo Type: Home (Routine DC) EVENTS: Event Name Event Status Request Date/Time Start Date/Time Complete Date/Time Arrive Complete 09/10/2023 11:36:20 09/10/2023 11:36:20 09/10/2023 11:36:20 Document Home Meds Request 09/10/2023 11:36:20 Triage Complete 09/10/2023 11:36:20 09/10/2023 11:47:42 09/10/2023 11:47:42 Bed Assign Complete 09/10/2023 11:42:11 09/10/2023 11:42:11 09/10/2023 11:42:11 Dr Exam Complete 09/10/2023 11:42:11 09/10/2023 11:49:03 09/10/2023 11:49:03 RN Exam Complete 09/10/2023 11:42:11 09/10/2023 12:12:15 09/10/2023 12:12:15 Workers Comp Request 09/10/2023 11:47:43 Registration Complete 09/10/2023 11:49:03 09/10/2023 13:00:27 09/10/2023 13:00:27 Dr Exam Complete 09/10/2023 11:51:38 09/10/2023 11:51:38 09/10/2023 11:51:38 CT Complete 09/10/2023 12:02:36 09/10/2023 12:15:49 09/10/2023 12:35:56 X-Ray Complete 09/10/2023 12:02:36 09/10/2023 12:17:49 09/10/2023 12:30:45 Trauma II Request 09/10/2023 12:18:54 Wet Read Request 09/10/2023 12:30:45 Reg Complete Request 09/10/2023 13:00:27 Reg Bed Request Complete 09/10/2023 13:00:27 09/10/2023 13:00:27 09/10/2023 13:00:27 Discharge Complete 09/10/2023 14:00:07 09/10/2023 14:28:48 09/10/2023 14:28:48 Transfer Complete 09/10/2023 14:28:48 09/10/2023 14:28:48 09/10/2023 14:28:48 ADDRESS: [address] [facility] [address] [facility] [id number] PHYS DOC NOTES: MEDICAL INFORMATION: Prescriptions Given: New Medications [facility], [address] [place], [place] [phone], [phone] acetaminophen-oxycodone (acetaminophen-oxycodone 325 mg-5 mg Tab) 1 Tablets By Mouth every 6 hours as needed for pain for 3 Days. Refills: 0. Medications to Continue with No Changes Other Medications duloxetine (duloxetine 60 mg oral delayed release capsule) 1 Capsules By Mouth every day. Refills: 0. PATIENT EDUCATION INFORMATION: Instructions: Contusion; Cervical Sprain; Radial Fracture Follow up: With: Address: When: Rony Wray [address] [place] [address] Business (9) In 3 days 09/13/2023 Comments: Follow-up with Dr. Wray for further evaluation of your distal radius fracture. With: Address: When: Occupational Health: [facility] [phone] In 3 days 09/13/2023 With: Address: When: Martha Hathaway In 3 days 09/13/2023 Comments: Follow-up with your primary care provider in 3 to 5 days. If symptoms worsen, do not improve, or new symptoms arise please report back to emergency department for further evaluation. DIAGNOSIS: Cervical strain; Closed head injury; Contusion of left knee; Fall; Right radial fracture [facility] ED Note-Physicianon 09-10-20 ED Note-Physician Basic Information Time Seen: Phil BLEDSOE, Sushil Ha 09/10/2023 11:49 Chief Complaint patient c/o right wrist pain, left knee pain and neck pain after tripping and falling this afternoon. denies LOC or use of blood thinners. - [facility] History of Present Illness A 68-year-old female reports emerged department with a chief complaint of right wrist pain, left knee pain, and neck and head pain after tripping and falling this afternoon. Reports that she was trying to get into a elevator, when she tripped and fell. Reports head hit the side of the wall, and landed on her right wrist and her left knee. Reports having a lot of pain. Denies any loss consciousness or blood thinner use. Reports that this happened at work and was Workmen's Comp. Went to get checked out. Reports that she is right-handed. Review of Systems A 10 point review of systems is negative except as noted above. Medical and Surgical History: Reviewed and noted Social history: Lives at home Family History: Reviewed. Tobacco: Physical Exam Vitals & Measurements T: 36.6 ?C(Oral) HR: 61(Peripheral) RR: 16 BP: 153/82 SpO2: 96% HT: 167 cm WT: 100 kg BMI: 35.86 General: The patient appears well and in no apparent distress. Patient is resting comfortably on bed. Afebrile Skin: Warm, dry, no pallor noted. No lacerations or abrasions noted. Head: Normocephalic, atraumatic Neck: No JVD Eye: PERRLA, EOMI ENT: Moist mucus membranes Cardiovascular: Regular rate normal peripheral perfusion. Radial pulses +2 bilaterally. Pedal pulses +2 bilaterally Respiratory: No respiratory distress no accessory muscle use no obvious audible wheezing. Lung sounds clear to auscultation Chest Wall: no deformity. No chest wall tenderness Musculoskeletal:, With mild swelling noted. There is also tenderness palpation over the patella of the left knee.. No cervical spine tenderness on palpation. GI: No obvious distention soft nontender nondistended no guarding rebounding or rigidity. Pelvis stable Neurological: A&Ox4. moves all extremities equal strength and symmetry. No focal neurological defects. Psychiatric: Cooperative and appropriate Medical Decision Making MEDICAL DECISION MAKING Number and Complexity of Problems Differential Diagnosis: [] [facility] Data External documents reviewed: [] My EKG interpretation: [] My CT interpretation: Reviewed My X-ray interpretation: Reviewed My Ultrasound interpretation: [] Decision rules/scores evaluated: [] Discussed with: [] Treatment and Disposition ED Course: 68-year-old female reports to the emergency department with chief complaint of a fall. Reports that he did hit her head, and having some neck pain. Denies any loss consciousness. Denies any blood thinners. Also complaint of right wrist pain, left knee pain. Due to concerns we did initiate trauma. We did do imaging. Imaging reviewed and noted. CT of the head and neck were negative. X-ray of the knee was also negative. X-ray of the right wrist showed a distal radial fracture. Due to this, patient was placed in a splint. The affected extremity was immobilized. Cast padding was used to wrap the extremity. A short arm volar splint was applied by Sushil Villarreal using orthoglass. The patient tolerated this procedure well. Extremity was examined after application and was found to be neurovascularly intact distally. Discussed follow-up orthopedics. Follow-up with occupational health. follow-up with your primary care provider in 3 to 5 days. If symptoms worsen, do not improve, or new symptoms arise please report back to emergency department for further evaluation. The patient was understanding and agreeable to plan moving forward. Shared decision making: [] Code status: [] Assessment/Plan Cervical strain (S16.1XXA: Strain of muscle, fascia and tendon at neck level, initial encounter) Closed head injury (S09.90XA: Unspecified injury of head, initial encounter) Contusion of left knee (S80.02XA: Contusion of left knee, initial encounter) Fall (W19.XXXA: Unspecified fall, initial encounter) Right radial fracture (S52.91XA: Unspecified fracture of right forearm, initial encounter for closed fracture) Orders: acetaminophen-oxycodone, 1 tab(s), Oral, q6hr for pain for 3 day(s), 12 tab(s), Refill(s) 0, [facility], 167, cm, 09/10/23 11:47:00 EST, Height/Length Dosing, 100, kg, 09/10/23 11:47:00 EST, Weight Dosing CT Head or Brain w/o Contrast CT Spine Cervical w/o Contrast XR Knee Complete 4+ Views Left XR Wrist 3+ Views Right Disposition Plan Patient Discharge Condition Stable Discharge Disposition To home Discharge Prescription List Prescriptions acetaminophen-oxycodone 325 mg-5 mg Tab, 1 tab(s), Oral, q6hr, PRN Follow-up With When Contact Information Rony Wray In 3 days 09/13/2023 [place] [id number] [employer] (1) Additional Instructions: Follow-up with Dr. Dockery (more content not included)... [facility] Comment on above: Result Comment: Electronically Signed By : Sushil Villarreal PA-C\.br\Date and Time Signed: 09/10/23 14:46 EST\.br\Electronically Co-Signed By: Lazaro Grady, Som Sterling\.br\Date and Time Co-Signed: 09/10/23 14:51 EST ED Patient Education Noteon 09-10-2023 ED Patient Education Note Orthopedics Contusion A contusion is a deep bruise. Contusions are the result of a blunt injury to tissues and muscle fibers under the skin. The injury causes bleeding under the skin. The skin overlying the contusion may turn blue, purple, or yellow. Minor injuries will give you a painless contusion, but more severe injuries cause contusions that may stay painful and swollen for a few weeks. Follow these instructions at home: Pay attention to any changes in your symptoms. Let your health care provider know about them. Take these actions to relieve your pain. Managing pain, stiffness, and swelling ? Use resting, icing, applying pressure (compression), and raising (elevating) the injured area. This is often called the RICE strategy. ? Rest the injured area. Return to your normal activities as told by your health care provider. Ask your health care provider what activities are safe for you. ? If directed, put ice on the injured area: ? Put ice in a plastic bag. ? Place a towel between your skin and the bag. ? Leave the ice on for 20 minutes, 2?3 times per day. ? If directed, apply light compression to the injured area using an elastic bandage. Make sure the bandage is not wrapped too tightly. Remove and reapply the bandage as directed by your health care provider. ? If possible, raise (elevate) the injured area above the level of your heart while you are sitting or lying down. General instructions ? Take bqwe-rfp-jojlzgl and prescription medicines only as told by your health care provider. ? Keep all follow-up visits as told by your health care provider. This is important. Contact a health care provider if: ? Your symptoms do not improve after several days of treatment. ? Your symptoms get worse. ? You have difficulty moving the injured area. Get help right away if: ? You have severe pain. ? You have numbness in a hand or foot. ? Your hand or foot turns pale or cold. Summary ? A contusion is a deep bruise. ? Contusions are the result of a blunt injury to tissues and muscle fibers under the skin. ? It is treated with rest, ice, compression, and elevation. You may be given lnhz-vvl-vzkfsia medicines for pain. ? Contact a health care provider if your symptoms do not improve, or get worse. ? Get help right away if you have severe pain, have numbness, or the area turns pale or cold. This information is not intended to replace advice given to you by your health care provider. Make sure you discuss any questions you have with your health care provider. Document Revised: 09/03/2022 Document Reviewed: 08/15/2022 [employer] Patient Education ? 2022 [employer] Cervical Sprain A cervical sprain is a stretch or tear in one or more of the ligaments in the neck. Ligaments are the tissues that connect bones. Cervical sprains can range from mild to severe. Severe cervical sprains can cause the spinal bones (vertebrae) in the neck to be unstable. This can result in spinal cord damage and in serious nervous system problems. The time that it takes for a cervical sprain to heal depends on the cause and extent of the injury. Most cervical sprains heal in 4?6 weeks. What are the causes? Cervical sprains may be caused by trauma, such as an injury from a motor vehicle accident, a fall, or a sudden forward and backward whipping movement of the head and neck (whiplash injury). Mild cervical sprains may be caused by wear and tear over time. What increases the risk? The following factors may make you more likely to develop this condition: ? Participating in activities that have a high risk of trauma to the neck. These include contact sports, auto racing, gymnastics, and diving. ? Taking risks when driving or riding in a motor vehicle. ? Osteoarthritis of the spine. ? Poor strength and flexibility of the neck. ? A previous neck injury. ? Poor posture. ? Spending long periods in certain positions that put stress on the neck, such as sitting at a computer for a long time. What are the signs or symptoms? Symptoms of this condition include: ? Pain, soreness, stiffness, tenderness, swelling, or a burning sensation in the front, back, or sides of the neck, shoulders, or upper back. ? Sudden tightening of neck muscles (spasms). ? Limited ability to move the neck. ? Headache. ? Dizziness. ? Nausea or vomiting. ? Weakness, numbness, or tingling in a hand or an arm. Symptoms may develop right away after injury, or they may develop over a few days. In some cases, symptoms may go away with treatment and return (recur) over time. How is this diagnosed? This condition may be diagnosed based on: ? Your medical history. ? Your symptoms. ? Any recent injuries or known neck problems that you have, such as arthritis in the neck. ? A physical exam. ? Imaging tests, such as X-rays, MRI, and CT scan. How is this treated? This condition is treated by resting and icing the injured area and doing p (more content not included)... [facility] ED Patient Summaryon 023 ED Patient Summary [place] [id number] Patient Discharge Instructions Person Information Name: MELBA TEJADA Age: 68 Years Arrival Date: 09/10/2023 11:36:20 Discharge Diagnosis: Cervical strain; Closed head injury; Contusion of left knee; Fall; Right radial fracture Primary Care Physician: Martha Hathaway CNP Provider Information Primary Provider: Som Willis M.D. Advanced Drywall Stripper:None The exam and treatment you received in the Emergency Department were for an urgent problem and are not intended as complete care. It is important that you follow up with a doctor, nurse practitioner, or physician?s sales support assistant for ongoing care. If your symptoms become worse or you do not improve as expected and you are unable to reach your usual health care provider, you should return to the Emergency Department. We are available 24 hours a day. MELBA TEJADA has been given the following list of patient education materials, prescriptions and follow-up instructions: Follow-up Instructions: With: Address: When: Rony Wray [address] [place], [place] [id number] Business (1) In 3 days 09/13/2023 Comments: Follow-up with Dr. Wray for further evaluation of your distal radius fracture. With: Address: When: Occupational Health: [facility] [phone] In 3 days 09/13/2023 With: Address: When: Martha Hathaway In 3 days 09/13/2023 Comments: Follow-up with your primary care provider in 3 to 5 days. If symptoms worsen, do not improve, or new symptoms arise please report back to emergency department for further evaluation. In the event that this physician does not participate in your insurance network, please consult with your insurance company to find a nearby participating provider. Patient Education Materials: Contusion; Cervical Sprain; Radial Fracture A MESSAGE TO ALL PATIENTS REGARDING OPIOIDS PRESCRIPTION OPIOIDS: WHAT YOU NEED TO KNOW Prescription opioids can be used to help relieve oexbezqz-ub-zglxab pain and are often prescribed following a surgery or injury, or for certain health conditions. These medications can be an important part of the treatment but also come with serious risks. It is important to work with your healthcare provider to make sure you are getting the safest, most effective care. WHAT ARE THE RISKS AND SIDE EFFECTS OF OPIOID USE? Prescription opioids carry serious risks of addiction and overdose, especially with prolonged use. An opioid overdose, often marked by slowed breathing, can cause sudden . The use of prescription opioids can have a number of side effects as well, even when taken as directed: ? Tolerance?meaning you might need to take more of the medication for the same pain relief ? Physical dependence?meaning you have symptoms of withdrawal when a medication is stopped ? Increased sensitivity to pain ? Constipation ? Nausea, vomiting, and dry mouth ? Sleepiness and dizziness ? Confusion ? Depression ? Low levels of testosterone that can result in lower sex drive, energy, and strength ? Itching and sweating RISKS ARE GREATER WITH: ? History of drug misuse, substance use disorder, or overdose ? Mental health conditions (such as depression or anxiety) ? Sleep apnea ? Older age (65 years and older) ? Avoid alcohol while taking prescription opioids. Also, unless specifically advised by your health care provider, medications to avoid include: ? Benzodiazepines (such as Xanax or Valium) ? Muscle relaxants (such as Soma or Flexeril) ? Hypnotics (such as Ambien or Lunesta) ? Other prescription opioids KNOW YOUR OPTIONS Talk to your health care provider about ways to manage your pain that don?t involve prescription opioids. Some of these options may actually work better and have fewer risks and side effects. Options may include: ? Pain relievers such as acetaminophen, ibuprofen, and naproxen ? Some medication that are also used for depression or seizures ? Physical therapy and exercise ? Cognitive behavioral therapy, a psychological, goal-directed approach, in which patients learn how to modify physical, behavioral, and emotional triggers of pain and stress. IF YOU ARE PRESCRIBED OPIOIDS FOR PAIN: ? Never take opioids in greater amounts or more often than prescribed. ? Follow up with your primary health care provider. o Work together to create a plan on how to manage your pain. o Talk about ways to help manage your pain that don?t involve prescription opioids. o Talk about any and all concerns and side effects. ? Help prevent misuse and abuse o Never sell or share prescription opioids. o Never use another person?s prescription opioids. ? Store prescription opioids in a secure place and out of reach of others (this may include visitors, children, friends, and family). ? Safely dispose of (more content not included)... [facility] ED Traumaon 09-10-2023 ED Trauma [id number]#[id number] [facility] Workers Comp Formson 023 Workers Comp Forms [id number]#[id number] [facility] XR Knee Complete 4+ Views Le fton 09-10-2023 XR Knee Complete 4+ Views Left Exam Date/Time: 09/10/2023 12:30 EST Reason for Exam: Fall Report IMPRESSION: No acute osseous findings. EXAMINATION/TECHNIQUE: XR Knee Complete 4+ Views Left HISTORY: Fall with left knee pain. COMPARISON: None RESULT: Limitations from positioning. Within these limits, no evidence for acute fracture. No dislocation. Small joint effusion. Tricompartmental osteophytes. Severe lateral compartment narrowing. Mild soft tissue edema. No other significant abnormality. Ordering Provider: Sushil Villarreal FINAL REPORT Dictated: 09/10/2023 1:47 pm Merrick Torrez MD. Signed (Electronic Signature): 09/10/2023 1:47 pm Signed by: Merrick Torrez MD Transcribed by: PRIMO Technologist: LOPEZ Technical Comments Radiation Dose: Ka,r in mGy = 0 DAP = 0 [facility] XR Wrist 3+ Views Righton XR Wrist 3+ Views Right Exam Date/Time: 09/10/2023 12:30 EST Reason for Exam: Fall Report IMPRESSION: Distal radial fracture. EXAMINATION/TECHNIQUE: XR Wrist 3+ Views Right HISTORY: Fall with right wrist pain. COMPARISON: None RESULT: Acute impacted fracture involving the distal radius with mild angulation and possible extension to the radiocarpal joint, without significant displacement. Chronic appearing well-corticated density near the ulnar styloid. Chronic appearing well-corticated density near the thumb CMC joint. Advanced degenerative changes involving the thumb CMC joint with other scattered milder degenerative changes. Soft tissue edema about the wrist. No other significant abnormality. Ordering Provider: Sushil Villarreal FINAL REPORT Dictated: 09/10/2023 1:42 pm Merrick Torrez MD. Signed (Electronic Signature): 09/10/2023 1:42 pm Signed by: Merrick Torrez MD Transcribed by: PRIMO Technologist: LOPEZ Technical Comments Radiation Dose: Ka,r in mGy = 0 DAP = 0 [facility] Family Medicine Office/Clini c Noteon 08-21-2023 Family Medicine Office/Clinic Note Chief Complaint EST sinus HPI Staff 68 year old female presents with sinus and her right side cheek is swollen and hurting cheek started yesterday History of Present Illness I have reviewed and verified the staff HPI to be accurate for this encounter. Portions of this record have been created with voice recognition software. Occasional wrong-word or ?cyuju-y-drwt? substitutions may have occurred due to the inherent limitations of voice recognition software. 68 yo female with hx of hyperlipidemia, HTN, obesity, presents today with cc of sinus congestion. Patient states she is unsure as to how long she had some sinus congestion. She states its been kind of coming and going over the last several weeks. She states over the last few days she has noticed some sinus pressure and pressure in the right cheek. He had concern for may be a sinus infection. She also notes swelling just in front of the right ear. She states she still ENT Dr. Sahu, several years ago for similar swelling. She states it comes and goes of the past 2 years sometimes only once a year sometimes a couple times per year. She states that she had an MRI at that time which noted some fluid. She denies any history of parotitis that she is aware of. She denies any history of clogged saliva glands or ducts. She states that she does have pain in the right anterior cheek region and states is typically not painful states if she opens her mouth to light she has pain. She denies any dental pain denies any runny nose. Denies any ear pain or drainage. Patient thought maybe a couple weeks ago she was getting an ear infection but again denies pain today. She states intermittent dry cough but she states her grandson also had a little bit of a cough. He denies any fever chills or recent sick contacts or recent travel. She denies any chest pain shortness of breath or difficulty breathing. She has no other concerns at this time. She states medication allergy to contrast dye adhesives and penicillin. She has no other concerns at this time. Review of Systems PHQ Score Initial Depression Screen Score: 0 ROS negative unless otherwise stated in HPI. Physical Exam Vitals & Measurements T: 36.5 ?C(Oral) HR: 48(Peripheral) BP: 124/78 SpO2: 95% HT: 66 in HT: 167 cm WT: 100 kg WT: 220 lb BMI: 35.86 General: Pleasant elderly female, no acute distress Eyes: bilateral conjunctiva wnl no injection. Ears: Bilateral tympanic membranes are within normal limits no erythema or bulging. There is some cerumen within bilateral ear canals without erythema edema or concern for otitis externa. No active ear drainage. Pt has swelling, at the site of the right parotid gland just anterior to the right ear. This is swollen and tender to touch no overlying erythema this is not hot to the touch or concern for cellulitis at this time. Nose: moderate nasal mucosa inflammation and edema with swollen erythematous boggy nasal turbinates bilaterally. Maxillary sinus pressure with palpation worse on the right compared to left. Mouth: Moist mucous membranes. No tonsillar erythema or exudate. No signs of peritonsillar abscess. No trismus or drooling. No obvious blocked saliva glands or ducts. Neck: no adenopathy Lungs: Lung sounds are clear bilaterally. No wheezing rhonchi or crackles on exam. Cardio: S1, S2, regular rhythm. No murmurs gallops or rubs. Abdomen: not assessed Musculoskeletal: not assessed Extremity: Patient walked back into convenient care on her own without gait abnormality. Neurologic: not assessed Skin: No rashes, ulcerations, or suspicious lesions Mental Status: Alert and oriented x3. Normal mood and affect Assessment/Plan 1. Sinusitis (J32.9: Chronic sinusitis, unspecified) Given duration of symptoms and exam, will cover for sinusitis with doxycycline 100 mg bid x 7 dasy. Finish entire course. Fluids/rest, PRN tylenol/ibuprofen for pain and/or fever encouraged. May use flonase for symptomatic tx. Follow up with PCP if not improving over next 5-7 days with ATB or significantly worsening. Patient verbalized understanding of treatment plan. Ordered: doxycycline, 100 mg = 1 cap(s), Oral, BID, X 7 day(s), # 14 cap(s), Refills(s) 0, [facility]acy: [facility], 167, cm, 08/21/23 14:00:00 EDT, Height/Length Dosing, 100, kg, 08/21/23 14:00:00 EDT, Weight Dosing 2. Parotitis (K11.20: Sialoadenitis, unspecified) You were seen and evaluated in convenient care today in regards to right -sided facial pain and swelling. It appears that you may have parotid gland swelling which could be caused from a viral or bacterial infection, or saliva gland swelling. However bilateral ears are within normal limits, no concern for strep or tonsillar abscess. We will cover you with antibiotic doxycycline bid x7 days in addition to discussing eating sour candy to keep the saliva glands moving and producing, as clogged saliva ducts could also be the cause of parotid gland swelling. Pt will continue to monitor. If she notice (more content not included)... [facility] Comment on above: Result Comment: Electronically Signed By : Duy BLEDSOE, Rai Ortiz\.br\Date and Time Signed: 08/21/23 15:22 EDT Patient Educationon 08-21-20 23 Patient Education Infectious Disease Parotitis Parotitis means that you have irritation and swelling (inflammation) in one or both of your parotid glands. These glands make saliva. They are found on each side of your face, below and in front of your earlobes. You may or may not have pain with this condition. What are the causes? This condition may be caused by: ? Infections from germs (bacteria or viruses). ? Something blocking the flow of saliva through the parotid glands. This can be a stone, scar tissue, or a tumor. ? Diseases that cause your body's defense system (immune system) to attack healthy cells in your salivary glands. These are called autoimmune diseases. What increases the risk? ? Being 50 years old or older. ? Not drinking enough fluids (being dehydrated). ? Drinking too much alcohol. ? Having: ? A dry mouth. ? Diabetes. ? Gout. ? A long-term illness. ? Not taking good care of your mouth and teeth (poor oral hygiene). ? Having had radiation treatments to the head and neck. ? Taking certain medicines. What are the signs or symptoms? ? Swelling under and in front of the ear. This may get worse after you eat. ? Pain and tenderness over the parotid gland. This may get worse after you eat. ? Redness and warmth of the skin over the parotid gland. ? Fever or chills. ? Pus coming from the ducts inside the mouth. ? Dry mouth. ? A bad taste in the mouth. How is this treated? Treatment depends on the cause. It may include: ? Antibiotic medicine for an infection from bacteria. ? NSAIDs, such as ibuprofen, to treat pain and swelling. ? Drinking more fluids. ? Removing a stone or obstruction. ? Treating a disease that is causing parotitis. ? Surgery to drain an infection, remove a growth, or remove the whole gland. Treatment may not be needed if the swelling goes away with home care. Follow these instructions at home: Medicines ? Take iqqu-htw-zdlqcsr and prescription medicines only as told by your doctor. ? If you were prescribed an antibiotic medicine, take it as told by your doctor. Do not stop taking it even if you start to feel better. Managing pain and swelling ? If told, put heat on the affected area. Do this as often as told by your doctor. Use the heat source that your doctor recommends, such as a moist heat pack or a heating pad. ? Place a towel between your skin and the heat source. ? Leave the heat on for 20?30 minutes. ? Take off the heat if your skin turns bright red. This is very important. If you cannot feel pain, heat, or cold, you have a greater risk of getting burned. ? Gargle with salt water 3?4 times a day or as needed. To make salt water, dissolve ??1 tsp (3?6 g) of salt in 1 cup (237 mL) of warm water. ? Gently rub your parotid glands as told by your doctor. General instructions ? Drink enough fluid to keep your pee (urine) pale yellow. ? Keep your mouth clean and moist. ? Suck on sour candy. This may help to: ? Make your mouth less dry. ? Make more saliva. ? Take good care of your mouth: ? [place] your teeth at least two times a day. ? Floss your teeth every day. ? See your dentist regularly. ? Do not smoke or use any products that contain nicotine or tobacco. If you need help quitting, ask your doctor. ? Do not drink alcohol. ? Keep all follow-up visits. Contact a doctor if: ? You have a fever or chills. ? You have new symptoms. ? Your symptoms get worse. ? Your symptoms do not get better with treatment. Get help right away if: ? You have trouble breathing or swallowing. These symptoms may be an emergency. Get help right away. Call your local emergency services (911 in the [place] ? Do not wait to see if the symptoms will go away. ? Do not drive yourself to the hospital. Summary ? Parotitis means that you have irritation and swelling (inflammation) in one or both of your parotid glands. ? Symptoms include pain and swelling under and in front of the ear. ? Treatment for parotitis depends on the cause. In some cases, the condition may go away on its own with home care. ? You should drink plenty of fluids, take good care of your mouth, and do not use products that contain nicotine or tobacco. This information is not intended to replace advice given to you by your health care provider. Make sure you discuss any questions you have with your health care provider. Document Revised: 03/01/2022 Document Reviewed: 03/01/2022 Elsevier Patient Education ? 2022 [employer] Sinus Infection, Adult A sinus infection, also called sinusitis, is inflammation of your sinuses. Sinuses are hollow spaces in the bones around your face. Your sinuses are located: ? Around your eyes. ? In the middle of your forehead. ? Behind your nose. ? In your cheekbones. Mucus normally drains out of your sinuses. When your na (more content not included)... [facility] Reference Laboratory Testing Ordered By: [employer] Domain[employer] on 11-23-2021 SARS-CoV-2 (COVID-19) RNA JUNAID+probe Ql (Resp) Not detected Invalid Interpretation Code Not Detected [facility] [employer] Comment on above: Result Comment: This nucleic acid amplif ication test was developed and its performance characteristics determined by [employer]. Nucleic acid amplification tests include RT-PCR and TMA. This test has not been FDA cleared or approved. This test has been authorized by FDA under an Emergency Use Authorization (EUA). This test is only authorized for the duration of time the declaration that circumstances exist justifying the authorization of the emergency use of in vitro diagnostic tests for detection of SARS-CoV-2 virus and/or diagnosis of COVID-19 infection under section 564(b)(1) of the Act, 21 U.S.C. 360bbb-3(b) (1), unless the authorization is terminated or revoked sooner. When diagnostic testing is negative, the possibility of a false negative result should be considered in the context of a patient's recent exposures and the presence of clinical signs and symptoms consistent with COVID-19. An individual without symptoms of COVID-19 and who is not shedding SARS-CoV-2 virus would expect to have a negative (not detected) result in this assay. Performed at: [facility] [id number] PhD Zhang Padron 06-17-2017 [place] Office Visit (NEUS) -MELBA TEJADA ([id number]) 1955 FDate Time Provider Department06/17/17 12:50 PM RUBENS SERNA During your visit today, we recorded the following information about you: Pulse Respiration Blood pressure Weight 83/minute 20/minute 135/79 99.8 kg Height 1.676 Evangelina Srena MD 06/17/2017 2:02 PM [facility] SURGERY OUTPATIENT CONSULTSERVICE DATE: 06/17/2017PCP: Camryn Barbosa, [id number] [facility] [id number] PROVIDER:Brea Layton requested for an opinion regarding the evaluation and treatment ofMelba Tejada. My final impression and recommendations will be communicatedback to the requesting physician by way of the shared medical record or lettervia US mail.Sunita Tejada is a 62 year old female presenting alone. 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 The pain is not all thatuncomfortable. She underwent an evaluation with Dr. Kelley per referral fromCamryn Barbosa. He then referred the patient to me for further assessment.PAIN EVALUATION 06/17/2017 Pain Score: 8 Pain Location: Arm-Right Description: Numbness Duration Amount of Time: 4 Duration Units: Months Frequency: Continuous Intervention: Medication;RepositionPain Radiation: Right shoulder into the right hand involving all digitsAggravating Factors: reaching, pulling, lifting, usage of the right arm, doinghair and make upAlleviating Factors: nothingPain Ratio: RIGHT ARMDERMATOMAL DISTRIBUTION:Right: C6, C7 and P5UMPUXUXMPM STATUS: AT LEAST 1 -2 MILESSTANDING UPRIGHT: MOST OF THE DAYARM WEAKNESS: RIGHT, April 2017HAND CLUMSINESS: RIGHT, April 2017. DROPPING THINGS, BUTTONING A SHIRTHANDWRITING DIFFICULTY: RIGHT, SOMETIME, PRIOR TO April 2017IMBALANCE: OCCASIONALLY, April 2017FUNCTIONAL STATUS: Walk indoors, such as around the house (1.75 METs)Do light work around the house, such as dusting or washing dishes (2.70 METs)Take care of self, that is eating, dressing, bathing, using the toilet (2.75METs)Walk a block or two on level ground (2.75 METs)Do moderate work around the house such as vacuuming, sweeping floors, orcarrying in groceries (3.50 METs)Climb a flight of stairs or walk up a hill (5.50 METs)PREVIOUS CONSERVATIVE TREATMENTS:PT THAT IS FINISHED OF April 2017 DID NOT HELP. TRACTION FAILED.MEDROL DOSE PACK HELPED THE NECK PAIN BUT NOT THE RIGHT ARM WEAKNESSPREVIOUS SPINAL SURGERY: NonePED RED FLAGSNoNoNoNoYesYesNoNoNoNoNo No No-Significant Injury to SpineNo-Use of Steroids for Prolonged DurationNo-Loss of Bowel/Bladder Control, Genital/Anal NumbnessNo-Recent Use of Intravenous (IV) DrugsYES-Difficulty Keeping Balance when WalkingYES-Progressive Weakness in Arms/LegsNo-History of Any Type of CancerNo-Unable to Find Position of ComfortNo-Pain at Night that Disturbs SleepNo-Recent Elevated Temp with Unknown CauseNo-Diagnosed with OsteoporosisNo-Unintentional Weight Loss or Gain*PED (Patient Entered Data) osteoporosis flag will display for females 55 yearsor older and males 75 years or older.ACTIVE PROBLEM LISTCalculus of KidneyCts (Carpal Tunnel Syndrome)ItchingNicotine Dependence, UncomplicatedSecondary Osteoarthritis of Multiple SitesAna PositiveKnee Pain, BilateralOsteopeniaPathologic Fracture of Other Specified SiteHeight LossKidney StonesHypertensionSmokerStres s Fracture of FootPAST MEDICAL HISTORYDiagnosis Date- ANNA positive 02/11/2014- Calculus of kidney 02/27/2007- CTS (carpal tunnel syndrome) 02/11/2014- Height loss 02/11/2014- Hypertension- Itching 02/11/2014- Kidney stones- Knee pain, bilateral 02/11/2014- Nicotine dependence, uncomplicated 02/11/2014- Osteopenia 02/11/2014- Secondary osteoarthritis of multiple sites 02/11/2014- Smoker 3 CIGARETTES EVERY OTHER DAY- Stress fracture of foot 02/11/2014PAST SURGICAL HISTORYNo date: [facility]RIPSY [facility] CTRNo date: OVARIAN CYSTECTOMY LeftFAMILY HISTORY Hypertension Mother Arthritis Mother Diabetes Mother Hypertension Father Arthritis Father Diabetes Maternal Grandmother Cancer Maternal Grandmother Cancer Maternal GrandfatherSocial History Marital status: Spouse name: Years of education: Number of children: 3Occupational HistoryOccupation 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 History Main Topics Smoking status: Light Tobacco Smoker Packs/day: 0.00 Years: 0.00 Alcohol use: NoALLERGIESAllergen Reactions- Iodine [Contrast Dy* Hives OK for topical iodine- PenicillinsMEDICATIONS:buPROP ion SR (WELLBUTRIN SR) 150 mg 12 hr tablet Take 150 mg by mouth twicedaily.amLODIPine (NORVASC) 5 mg tablet Take 5 mg by mouth once daily.hydrochlorothiazide 25 mg tablet Take 25 mg by mouth once daily.nicotine 21 mg/24 hr Apply 1 Patch as directed every 24 hours.escitalopram 10 mg tablet Take 1tab daily x 1-2weeks, then two tabs dailythereafterREVIEW OF SYSTEMS:Review of SystemsConstitutional Positive for Weight Gain and Fatigue Negative for Fevers, Night Sweats and Weight LossEyes Negative for Change in vison not corrected by glasses and Vision loss orchangeHent Positive for Hearing Loss Negative for Difficulty Swallowing, Tinnitus and Recent change in speech orvoiceCardiovascular Negative for Chest Pain, Lightheadedness and Leg pain with walkingRespiratory Negative for SOB at rest, SOB with exertion, Cough, Wheezing and SnoringGI Positive for Constipation Negative for Blood in Stool, Abdominal Pain, Diarrhea, Nausea/Vomiting andHeartburnGU Positive for Urgency Negative for Impotence, Incontinence and Sexual DysfunctionEndocrine Negative for Heat Intolerance, Excessive Thirst and Menstrual CycleIrregularitiesMusculoske letal Positive for Back Pain and Stiff Joints Negative for Joint Swelling and Muscle PainIntegumentary Negative for Rashes, Itching, Other Lesions and Hair ChangesHeme/Lymph Negative for Prolonged Bleeding, Easy Bruising and Swelling of Arm or LegAllergy/Immunologic Positive for Nasal Congestion Negative for Swollen NodesNeurologic Positive for Memory Problems, Headache, Numbness/Tingling and Weakness Negative for Double Vision, Trouble Swallowing and Slurred SpeechPsychiatric Positive for Depression Negative for Stress or Conflicts, Anxiety, Irritability, Hallucinations andDelusionsPatient's Review of Systems has been reviewed with the patient and updated asappropriate.OBJECTIVE:PHYSI DANG EXAMBP 135/79 Pulse 83 Resp 20 Ht 167.6 cm (5' 6ANDquot;) Wt 99.8 kg (220 lb) BMI 35.51 kg/w8WESDLPB APPEARANCE: Well nourished, well developed, and no apparent distress.NEURO PSYCH: Patient oriented to person, place, and time. Mood pleasant. Benignaffect.CARDIOVASCULAR: Palpable2+ radial and 2+ posterior tibialis pulses. No edemanoted. No varicosities.SKIN: Head, neck, trunk, and extremities dry, intact and without lesions.LYMPHATICS: No palpable nodes in cervical or axillae areas. Groin exam deferred.MUSCULOSKELETAL VISUAL INSPECTION CERVICAL: WNL with full active range of motion THORACIC: WNL LUMBAR: WNL with flexion 60 ? and extension neutral PALPATION: SPINOUS PROCESS: No pain. PARASPINALS: No pain.MUSCLE BULK: Normal and symmetrical in the upper ANDamp; lower extremities.MUSCLE TONE: Normal.MOTOR:4/5 in all muscle groups of the upper extremities with exception of entire leftupper extremity 5 with left pronation 4+.5/5 in all muscles of the lower extremities with exception of right and leftEHL 5 minus to 5. Right EHL somewhat difficult to examine due to severe buniondeformitySENSORY: Normal sensory examGAIT: Normal. Intact heel and toeREFLEXES: 1+ DTRs over the biceps and brachioradialis. 2+ triceps. Absentpatella reflexes. 2+ Achilles on the right and 1+ in the left in the lowerextremities.PROPRIOCEPTI ON: Normal.LONG TRACT SIGNS: No clonus. No Hoffmans.STRAIGHT LEG TEST: Ipsilateral: Negative. Contralateral: Negative.L'HERMITTES SIGN: Negative on the right. Negative on the left.SPURLING'S TEST: Positive on the right. Negative on the left.EXTREMITIES: No gross deformity or laxity with normal range of motion withoutpainPELVIS: No hip irritabilitySTATION: stable.ADDITIONAL LONG TRACT SIGNS: Babinski: absent Escape sign: Not performedADDITIONAL EXAMINATION:Shoulder examination demonstrated decreased forward elevation bilaterally moreon the right than the left, no pain with internal or external rotation.Decreased resisted external and internal rotation on the right. PositiveHawkins and positive Neer test with positive greater tuberosity tenderness onthe right.Matthew Signs: not performedKP: DiminishedOAARS report was reviewed.MEDICAL RECORDSReviewed at the index visit:Progress note from Dr. Ilya Kelley dictated June 05, 2017 address tocervical radiculopathy of C5EMG. 05/26/2017. Chronic and active C5 radiculopathy on the right which issevere. Median neuropathy minimal on the right. No evidence of brachialplexopathy.NEURO TESTS:NoneDATA REVIEWImaging and outside records reviewed and findings are as followsCervical spine x-rays ?3 views. February 27, 2017. Degenerative disc changesC5-7. Slight retrolisthesis C4 on 5. Canal ratio 17/19.Cervical MRI scan. February 27, 2017. Right C4-5, 56 and C6-7 foraminalstenosis. 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) Pathologic fracture of other specified site(M85.80) Osteopenia, unspecified location(F17.200) Nicotine dependence, uncomplicated, unspecified nicotine product type(M25.561, M25.562) Pain in both knees, unspecified chronicity(L29.9) Itching(R29.890) Height loss(G56.00) Carpal tunnel syndrome, unspecified laterality(N20.0) Calculus of kidney(R76.8) ANNA positive(N20.0) Kidney stones(I10) Hypertension, unspecified type(F17.200) Smoker(M84.374S) Stress fracture of right foot, sequela(M99.81) Foraminal stenosis of cervical region(M75.41) Shoulder impingement, right#1 right C4-5, 56 and C6-7 foraminal stenosis with right arm radiculopathy,simultaneous right rotator cuff impingementDiagnoses and treatment options were discussed. The patient is not at risk fordeveloping any major neurological deficit or bowel or bladder dysfunction basedon the current assessment.Patient was given an option of conservative treatment including injectiontreatment. She would like to give it some consideration and is reluctant toproceed with this. I also mentioned that she may need to go back to Dr.Michael Kelley regarding the right shoulder impingement. Should she decide toproceed with cervical decompression and fusion, she would be candidate for ACDFC4-7.Risks and complications of the anterior cervical surgery were once againdiscussed including but limited to bleeding, infection, damage to nerves, softtissue, vessels, deep venous thrombosis, pulmonary embolus, heart attack,stroke, , nerve and cord injury, nerve palsy, paralysis, worsening pain,paresthesias, weakness, durotomy, dysphagia, dysphonia, Robert's syndrome,chronic neck pain, adjacent segment disease, pseudarthrosis or non-union,failure or malpositioning of the instrumentation, need for further surgery,potential staged posterior decompression and fusion.#2 light smokingIt would be imperative for her to stop smoking altogether prior to any type wasfusion is to be contemplated. Postoperatively, she would be candidate for bonestimulator if she relapsed in her cigarette smoking.Melba Tejada has a surgical indication but she would like to give it somemore consideration before proceeding with surgery.1. Imaging: Cervical X-Ray2. Follow up: PRNAfter the patient left, I called Dr. Ilya Kelley'office to notify of theshoulder impingement status.SIGNATURE: Rubens Serna MD PATIENT NAME: Melba TejadaDATE: June 17, 2017 : 12:56 PM PAGER:Rubens Serna MD 06/17/2017 1:35 PM SignedCERVICAL DISC HERNIATION/STENOSISReferring Provider: CAMRYN BARBOSA [[id number]]Allergies As of Date: 06/17/2017 Noted Allergy ReactionIODINE (CONTRAST DYE) 12/19/2006 4 - Hives Comments: OK for topical iodinePENICILLINS 12/04/2006Date Reviewed: 06/17/2017Reviewed by: Rubens Serna - Fully AssessedReason for Visit: Consult [173] Cmt: weakness of Right armPrimary Visit Diagnosis:Radiculopathy, cervical region [M54.12] Other Visit Diagnoses:Secondary osteoarthritis of multiple sites [M15.3] Pathologic fracture of other specified site [M84.48XA] Osteopenia, unspecified location [M85.80] Nicotine dependence, uncomplicated, unspecified nicotine product type [F17.200] Pain in both knees, unspecified chronicity [M25.561, M25.562] Itching [L29.9] Height loss [R29.890] Carpal tunnel syndrome, unspecified laterality [G56.00] Calculus of kidney [N20.0] ANNA positive [R76.8] Kidney stones [N20.0] Hypertension, unspecified type [I10] Smoker [F17.200] Stress fracture of right foot, sequela [M84.374S] Foraminal stenosis of cervical region [M99.81] Shoulder impingement, right [M75.41]Order(s):XR CERVICAL OBLIQUES ONLY [[id number]] Order #: [id number] FUTURE XR CERVICAL 3VIEW/FLEX/EXT [[id number]] Order #: [id number] FUTUREPrescriptions as of 06/17/2017 Sig: BUPROPION HCL SR 150 MG TABLE* Take 150 mg by mouth twice da* AMLODIPINE 5 MG TABLET Take 5 mg by mouth once daily. HYDROCHLOROTHIAZIDE 25 MG TAB* Take 25 mg by mouth once roby* NICOTINE 21 MG/24 HR DAILY TR* Apply 1 Patch as directed eli* ESCITALOPRAM 10 MG TABLET Take 1tab daily x 1-2weeks, t*Medication notes this encounter HYDROCHLOROTHIAZIDE 25 MG TABLET >> Shayna Garcia 06/17/2017 1:06 PM >> SHAYNA GARCIA Jun 17, 2017 1:06 PM Not taking NICOTINE 21 MG/24 HR DAILY TRANSDERMAL PATCH >> Shayna Garcia 06/17/2017 1:06 PM >> SHAYNA GARCIA Jun 17, 2017 1:06 PM Not taking ESCITALOPRAM 10 MG TABLET >> Shayna Garcia 06/17/2017 1:06 PM >> SHAYNA GARCIA Jun 17, 2017 1:06 PM Not takingProblem List As Of Date 06/17/2017 Noted Resolved CALCULUS OF KIDNEY [N20.0] INVALID FOR* CTS (carpal tunnel syndrome) [G56.00] INVALID FOR* Itching [L29.9] INVALID FOR* Nicotine dependence, uncomplicated [F17.200] INVALID FOR* Secondary osteoarthritis of multiple sites [M15*INVALID FOR* ANNA positive [R76.8] INVALID FOR* Knee pain, bilateral [M25.561, M25.562] INVALID FOR* Osteopenia [M85.80] INVALID FOR* Pathologic fracture of other specified site [M8*INVALID FOR* Height loss [R29.890] INVALID FOR* Kidney stones [N20.0] Hypertension [I10] Smoker [F17.200] Stress fracture of foot [M84.376A] INVALID FOR* Other instructions from your clinician: CERVICAL DISC HERNIATION/STENOSISDispositio n: Return if symptoms worsen or fail to improve.Follow-up and Disposition History RecordedEncounter Number: [id number] Status:Closed by RUBENS SERNA MD on 06/17/17 Normal [facility] PROGRESSon 06-17-2017 PROGRESS HNO ID: [id number] thor: Rubens SernaService: (none)Author Type: PhysicianType: Progress NotesFiled: 06/17/2017 2:02 PMNote Text:SPINE SURGERY OUTPATIENT CONSULTSERVICE DATE: 06/17/2017PCP: Camryn Barbosa, [id number] [facility] [id number] PROVIDER:Brea Layton requested for an opinion regarding the evaluation and treatmentof Melba Tejada. My final impression and recommendations will becommunicated back to the requesting physician by way of the shared medicalrecord or letter via [place] mail.Sunita Tejada is a 62 year old female presenting alone. 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 The weakness is quite severe that she rates as 8/10. Thepain is not all that uncomfortable. She underwent an evaluation with per referral from Camryn Barbosa. He then [facility] the [facility].PAIN EVALUATION 06/17/2017 Pain Score: 8 Pain Location: Arm-Right Description: Numbness Duration Amount of Time: 4 Duration Units: Months Frequency: Continuous Intervention: Medication;RepositionPain Radiation: Right shoulder into the right hand involving all digitsAggravating Factors: reaching, pulling, lifting, usage of the right arm,doing hair and make upAlleviating Factors: nothingPain Ratio: RIGHT ARMDERMATOMAL DISTRIBUTION:Right: C6, C7 and [id number] STATUS: AT LEAST 1 -2 MILESSTANDING UPRIGHT: MOST OF THE DAYARM WEAKNESS: RIGHT, April 2017HAND CLUMSINESS: RIGHT, April 2017. DROPPING THINGS, BUTTONING A SHIRTHANDWRITING DIFFICULTY: RIGHT, SOMETIME, PRIOR TO April 2017IMBALANCE: OCCASIONALLY, April 2017FUNCTIONAL STATUS: Walk indoors, such as around the house (1.75 METs)Do light work around the house, such as dusting or washing dishes (2.70METs)Take care of self, that is eating, dressing, bathing, using the toilet(2.75 METs)Walk a block or two on level ground (2.75 METs)Do moderate work around the house such as vacuuming, sweeping floors, orcarrying in groceries (3.50 METs)Climb a flight of stairs or walk up a hill (5.50 METs)PREVIOUS CONSERVATIVE TREATMENTS:PT THAT IS FINISHED OF April 2017 DID NOT HELP. TRACTION FAILED.MEDROL DOSE PACK HELPED THE NECK PAIN BUT NOT THE RIGHT ARM WEAKNESSPREVIOUS SPINAL SURGERY: NonePED RED FLAGSNoNoNoNoYesYesNoNoNoNoNo No No-Significant Injury to SpineNo-Use of Steroids for Prolonged DurationNo-Loss of Bowel/Bladder Control, Genital/Anal NumbnessNo-Recent Use of Intravenous (IV) DrugsYES-Difficulty Keeping Balance when WalkingYES-Progressive Weakness in Arms/LegsNo-History of Any Type of CancerNo-Unable to Find Position of ComfortNo-Pain at Night that Disturbs SleepNo-Recent Elevated Temp with Unknown CauseNo-Diagnosed with OsteoporosisNo-Unintentional Weight Loss or Gain*PED (Patient Entered Data) osteoporosis flag will display for females 55years or older and males 75 years or older.ACTIVE PROBLEM LISTCalculus of KidneyCts (Carpal Tunnel Syndrome)ItchingNicotine Dependence, UncomplicatedSecondary Osteoarthritis of Multiple SitesAna PositiveKnee Pain, BilateralOsteopeniaPathologic Fracture of Other Specified SiteHeight LossKidney StonesHypertensionSmokerStres s Fracture of FootPAST MEDICAL HISTORYDiagnosis Date- ANNA positive 02/11/2014- Calculus of kidney 02/27/2007- CTS (carpal tunnel syndrome) 02/11/2014- Height loss 02/11/2014- Hypertension- Itching 02/11/2014- Kidney stones- Knee pain, bilateral 02/11/2014- Nicotine dependence, uncomplicated 02/11/2014- Osteopenia 02/11/2014- Secondary osteoarthritis of multiple sites 02/11/2014- Smoker 3 CIGARETTES EVERY OTHER DAY- Stress fracture of foot 02/11/2014PAST SURGICAL HISTORYNo date: LITHOTRIPSY [facility]L UROLOGIC CTRNo date: OVARIAN CYSTECTOMY LeftFAMILY HISTORY Hypertension Mother Arthritis Mother Diabetes Mother Hypertension Father Arthritis Father Diabetes Maternal Grandmother Cancer Maternal Grandmother Cancer Maternal GrandfatherSocial History Marital status: Spouse name: Years of education: Number of children: 3Occupational 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 Main Topics Smoking status: Light Tobacco Smoker Packs/day: 0.00 Years: 0.00 Alcohol use: NoALLERGIESAllergen Reactions- Iodine [Contrast Dy* Hives OK for topical iodine- PenicillinsMEDICATIONS:buPROP ion SR (WELLBUTRIN SR) 150 mg 12 hr tablet Take 150 mg by mouthtwice daily.amLODIPine (NORVASC) 5 mg tablet Take 5 mg by mouth once daily.hydrochlorothiazide 25 mg tablet Take 25 mg by mouth once daily.nicotine 21 mg/24 hr Apply 1 Patch as directed every 24 hours.escitalopram 10 mg tablet Take 1tab daily x 1-2weeks, then two tabs dailythereafterREVIEW OF SYSTEMS:Review of SystemsConstitutional Positive for Weight Gain and Fatigue Negative for Fevers, Night Sweats and Weight LossEyes Negative for Change in vison not corrected by glasses and Vision loss orchangeHent Positive for Hearing Loss Negative for Difficulty Swallowing, Tinnitus and Recent change in speechor voiceCardiovascular Negative for Chest Pain, Lightheadedness and Leg pain with walkingRespiratory Negative for SOB at rest, SOB with exertion, Cough, Wheezing and SnoringGI Positive for Constipation Negative for Blood in Stool, Abdominal Pain, Diarrhea, Nausea/Vomitingand HeartburnGU Positive for Urgency Negative for Impotence, Incontinence and Sexual DysfunctionEndocrine Negative for Heat Intolerance, Excessive Thirst and Menstrual CycleIrregularitiesMusculoske letal Positive for Back Pain and Stiff Joints Negative for Joint Swelling and Muscle PainIntegumentary Negative for Rashes, Itching, Other Lesions and Hair ChangesHeme/Lymph Negative for Prolonged Bleeding, Easy Bruising and Swelling of Arm orLegAllergy/Immunologic Positive for Nasal Congestion Negative for Swollen NodesNeurologic Positive for Memory Problems, Headache, Numbness/Tingling and Weakness Negative for Double Vision, Trouble Swallowing and Slurred SpeechPsychiatric Positive for Depression Negative for Stress or Conflicts, Anxiety, Irritability, Hallucinationsand DelusionsPatient's Review of Systems has been reviewed with the patient and updatedas appropriate.OBJECTIVE:PHYSICA L EXAMBP 135/79 Pulse 83 Resp 20 Ht 167.6 cm (5' 6 ) Wt 99.8 kg (220 lb) BMI 35.51 kg/b6CTELRLH APPEARANCE: Well nourished, well developed, and no apparentdistress.NEURO PSYCH: Patient oriented to person, place, and time. Mood pleasant.Benign affect.CARDIOVASCULAR: Palpable2+ radial and 2+ posterior tibialis pulses. Noedema noted. No varicosities.SKIN: Head, neck, trunk, and extremities dry, intact and without lesions.LYMPHATICS: No palpable nodes in cervical or axillae areas. Groin examdeferred.MUSCULOSKELETAL VISUAL INSPECTION CERVICAL: WNL with full active range of motion THORACIC: WNL LUMBAR: WNL with flexion 60 ? and extension neutral PALPATION: SPINOUS PROCESS: No pain. PARASPINALS: No pain.MUSCLE BULK: Normal and symmetrical in the upper AND lower extremities.MUSCLE TONE: Normal.MOTOR:4/5 in all muscle groups of the upper extremities with exception of entireleft upper extremity 5 with left pronation 4+.5/5 in all muscles of the lower extremities with exception of right andleft EHL 5 minus to 5. Right EHL somewhat difficult to examine due tosevere bunion deformitySENSORY: Normal sensory examGAIT: Normal. Intact heel and toeREFLEXES: 1+ DTRs over the biceps and brachioradialis. 2+ triceps.Absent patella reflexes. 2+ Achilles on the right and 1+ in the left inthe lower extremities.PROPRIOCEPTION: Normal.LONG TRACT SIGNS: No clonus. No Hoffmans.STRAIGHT LEG TEST: Ipsilateral: Negative. Contralateral: Negative.L'HERMITTES SIGN: Negative on the right. Negative on the left.SPURLING'S TEST: Positive on the right. Negative on the left.EXTREMITIES: No gross deformity or laxity with normal range of motionwithout painPELVIS: No hip irritabilitySTATION: stable.ADDITIONAL LONG TRACT SIGNS: Babinski: absent Escape sign: Not performedADDITIONAL EXAMINATION:Shoulder examination demonstrated decreased forward elevation bilaterallymore on the right than the left, no pain with internal or externalrotation. Decreased resisted external and internal rotation on the right. Positive Gaytan and positive Neer test with positive greater tuberositytenderness on the right.Matthew Signs: not performedKP: DiminishedOAARS report was reviewed.MEDICAL RECORDSReviewed at the index visit:Progress note from Dr. Ilya Kelley dictated June 05, 2017 address tocervical radiculopathy of C5EMG. 05/26/2017. Chronic and active C5 radiculopathy on the right whichis severe. Median neuropathy minimal on the right. No evidence ofbrachial plexopathy.NEURO TESTS:NoneDATA REVIEWImaging and outside records reviewed and findings are as followsCervical spine x-rays ?3 views. February 27, 2017. Degenerative discchanges C5-7. Slight retrolisthesis C4 on 5. Canal ratio 17/19.Cervical MRI scan. February 27, 2017. Right C4-5, 56 and C6-7 foraminalstenosis. 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) Pathologic fracture of other specified site(M85.80) Osteopenia, unspecified location(F17.200) Nicotine dependence, uncomplicated, unspecified nicotine producttype(M25.561, M25.562) Pain in both knees, unspecified chronicity(L29.9) Itching(R29.890) Height loss(G56.00) Carpal tunnel syndrome, unspecified laterality(N20.0) Calculus of kidney(R76.8) ANNA positive(N20.0) Kidney stones(I10) Hypertension, unspecified type(F17.200) Smoker(M84.374S) Stress fracture of right foot, sequela(M99.81) Foraminal stenosis of cervical region(M75.41) Shoulder impingement, right#1 right C4-5, 56 and C6-7 foraminal stenosis with right armradiculopathy, simultaneous right rotator cuff impingementDiagnoses and treatment options were discussed. The patient is not atrisk for developing any major neurological deficit or bowel or bladderdysfunction based on the current assessment.Patient was given an option of conservative treatment including injectiontreatment. She would like to give it some consideration and is reluctantto proceed with this. I also mentioned that she may need to go back toDr. Ilya Kelley regarding the right shoulder impingement. Should shedecide to proceed with cervical decompression and fusion, she would becandidate for ACDF C4-7.Risks and complications of the anterior cervical surgery were once againdiscussed including but limited to bleeding, infection, damage to nerves,soft tissue, vessels, deep venous thrombosis, pulmonary embolus, heartattack, stroke, , nerve and cord injury, nerve palsy, paralysis,worsening pain, paresthesias, weakness, durotomy, dysphagia, dysphonia,Robert's syndrome, chronic neck pain, adjacent segment disease,pseudarthrosis or non-union, failure or malpositioning of theinstrumentation, need for further surgery, potential staged posteriordecompression and fusion.#2 light smokingIt would be imperative for her to stop smoking altogether prior to anytype was fusion is to be contemplated. Postoperatively, she would becandidate for bone stimulator if she relapsed in her cigarette smoking.Melba Tejada has a surgical indication but she would like to give itsome more consideration before proceeding with surgery.1. Imaging: Cervical X-Ray2. Follow up: PRNAfter the patient left, I called Dr. Ilya Kelley'office to notify ofthe shoulder impingement status.SIGNATURE: Rubens Serna MD PATIENT NAME: Melba TejadaDATE: June 17, 2017 : 12:56 PM PAGER: Normal [facility] Vital Signs Date Time Vital Sign Value Performing Clinician Facility 10-30-2023 14:19-0500 Blood Pressure Location [facility] 10-30-2023 14:19-0500 Body temperature 98.42 [degF] [facility] 10-30-2023 14:19-0500 Diastolic blood pressure 86 mm[Hg] Miguel [facility] 10-30-2023 14:19-0500 Heart rate 74 /min Miguel [facility] 10-30-2023 14:19-0500 SaO2% (BldA) [Mass fraction] 95 % Miguel [facility] 10-30-2023 14:19-0500 Systolic blood pressure 130 mm[Hg] Miguel [facility] 08-21-2023 13:55-0400 Blood Pressure Location Rai Gordillo [facility] 08-21-2023 13:55-0400 Body temperature 97.7 [degF] Raiflorinda Gordillo [facility] 08-21-2023 13:55-0400 Diastolic blood pressure 78 mm[Hg] Rai Gordillo [facility] 08-21-2023 13:55-0400 Heart rate 48 /min Rai Gordillo [facility] 08-21-2023 13:55-0400 SaO2% (BldA) [Mass fraction] 95 % Rai Gordillo [facility] 08-21-2023 13:55-0400 Systolic blood pressure 124 mm[Hg] Rai Gordillo [facility] 10-21-2022 13:40-0500 Blood Pressure Location Miguel Gudimella [facility] 10-21-2022 13:40-0500 Body temperature 97.52 [degF] Miguel Gudimella [facility] 10-21-2022 13:40-0500 Diastolic blood pressure 78 mm[Hg] Miguel Gudimella [facility] 10-21-2022 13:40-0500 Heart rate 74 /min Miguel Gudimella [facility] 10-21-2022 13:40-0500 Respiratory rate 18 /min Miguel Gudimella [facility] 10-21-2022 13:40-0500 SaO2% (BldA) [Mass fraction] 97 % Miguel Gudimella [facility] 10-21-2022 13:40-0500 Systolic blood pressure 128 mm[Hg] Miguel Gudimella [facility] 04-18-2022 15:36-0400 Blood Pressure Location Martha Hathaway [facility] 04-18-2022 15:36-0400 Body temperature 98.24 [degF] Martha Hathaway [facility] 04-18-2022 15:36-0400 Diastolic blood pressure 80 mm[Hg] Martha Hathaway [facility] 04-18-2022 15:36-0400 Heart rate 81 /min Martha Hathaway [facility] 04-18-2022 15:36-0400 SaO2% (BldA) [Mass fraction] 97 % Martha Hathaway [facility] 04-18-2022 15:36-0400 Systolic blood pressure 136 mm[Hg] Martha Hathaway [facility] Encounters Encounter Date Encounter Type Care Provider Facility Start: 07-13-2024 ambulatory MD Miguel Lake lity:Kathy CISNEROS Start: 12-10-2023 ambulatory Beatrice Rose ity:Kathy CISNEROS Start: 10-30-2023 End: 10-31-2023 ambulatory MD Miguel Atkins Facility:[facility] Start: 10-30-2023 End: 10-30-2023 Encounter for general adult medical examination with abnormal findings Miguel Atkins [facility] Start: 10-30-2023 End: 10-30-2023 Patient encounter procedure Miguel Atkins [facility] Start: 10-22-2023 ambulatory MD Miguel Lake lity:MEGHA Gonsalez Start: 10-03-2023 End: 10-03-2023 ambulatory DENIA [facility] Start: 10-02-2023 End: 10-02-2023 ambulatory [facility] Start: 09-30-2023 ambulatory DENIA [facility] Start: 09-10-2023 End: 09-11-2023 ambulatory [facility] Facility:[facility] Start: 09-10-2023 End: 09-10-2023 Emergency department patient visit Som Mathewdallas Facility:[facility] Start: 08-21-2023 End: 08-22-2023 ambulatory Rai Gordillo Facility: [place] Start: 08-21-2023 End: 08-21-2023 Patient encounter procedure Rai Gordillo [facility] Start: 10-21-2022 End: 10-21-2022 Patient encounter procedure Miguel Atkins [facility] Start: 05-08-2022 End: 05-09-[address] DENIA JOHNS Facility: Start: 04-18-2022 End: 04-18-2022 Patient encounter procedure Martha Hathaway [facility] Start: 11-23-2021 End: 2022 Patient encounter procedure Martha Hathaway [facility] Start: 06-17-2017 End: 06-17-2017 Ambulatory RUBENS SERNA [facility] Procedures Date Procedure Procedure Detail Performing Clinician Start: 10-12-2019 Cataract extraction and insertion of intraocular lens Martha Hathaway Comment on above: RIGHT Start: 09-28-2019 Cataract extraction and insertion of intraocular lens Martha Hathaawy Comment on above: Left Start: 08-31-2019 Total replacement of hip Martha Hathaway Comment on above: Left Start: 05-18-2019 Epidural injection o f cervical spine using fluoroscopic guidance Martha Hathaway Comment on above: 90% pain relief C7-T1 COLIN 90% relief that continues Start: 04-01-2019 cysto, left stent removal Martha Hathaway Start: 03-22-2019 cysto, stone extract ion, left stent placement Martha Hathaway Start: 03-22-2019 CYSTOSCOPY, LEFT RET ROGRADE, STONE EXTRACTION WITH BASKET , LEFT URETERAL STENT INSERTION Martha Hathaway Start: 12-24-2018 Hammer toe operation Aquiles Hathaway Comment on above: RIGHT SECOND DIGIT S EQUENTIAL REDUCTION, RIGHT THIRD MPJ EXTENSOR RELEASE. Start: 11-05-2018 Excision of bunion Katya Hathaway Comment on above: . Long arm Jose Rafael bu nionectomy, right 2. Removal of fibular sesamoid which was arthritic and adhesed 3. Capsulotomy, third metatarsophalangeal joint, right 4. Proximal interphalangeal joint arthroplasty, right third digit Start: 04-13-2018 Left hip steroid injection 8 Marhta Hathaway Comment on above: 10% relief Start: 03-16-2018 Transforaminal Epidu ral Steriod Injection Lt. L4, L5 9 Martha Hathaway Comment on above: 90% relief and still lasting Start: 11-05-2017 Injection of hip usi ng fluoroscopic guidance Martha Hathaway Comment on above: left hip injection 6 0% relief and still working Start: 05-04-2017 transforimanal Epidu ral steriod injection 11 Martha Hathaway Comment on above: L3-L4 TFESI 40 % rel ief Start: 10-30-2016 cysto lt retrograde lt ureteroscopy holmium laser fragment removal of stone lt j stent with string. Martha Hathaway Start: 10-09-2016 Excision of anterior tongue lesion with repair Martha Arellanoell Appendectomy Martha Hathaway Colonoscopy 12 Martha Arellanopauly valdez Comment on above: Dr. Ruvalcaba May 2009 Cystopexy Marthabeth Hathaway Comment on above: 1997 Excision of cyst of ovary Aquiles andreabeth Hathaway Lithotripsy Martha Rivas Other bilateral liga tion and division of fallopian tubes Martha Arellanoell Immunizations Immunization Date Immunization Notes Care Provider Fa cili 10-30-2023 pneumococcal polysaccharide vaccine, 23 valent Miguel Leonidesdimella [facility] 08-12-2023 influenza virus vaccine, unspecified formulation Rai Gordillo [facility] 10-02-2021 pneumococcal conjuga te vaccine, 13 valent Martha Hathaway [facility] 10-02-2021 influenza, high dose seasonal, preservative-free Martha Arellanoell [facility] 02-02-2021 COVID-19, mRNA, LNP- S, PF, 30 mcg/0.3 mL dose; Translations: [Pfizer-BioNTech COVID-19 Vaccine] Marhta Hathaway [facility] Comment on above: Reason for Medicatio n: Prophylaxis 01-12-2021 COVID-19, mRNA, LNP- S, PF, 30 mcg/0.3 mL dose; Translations: [Pfizer-BioNTech COVID-19 Vaccine] Martha Hathaway [facility] Comment on above: Reason for Medicatio n: Prophylaxis 08-10-2020 influenza virus vaccine, unspecified formulation Martha Rivas [facility] 09-03-2018 influenza virus vaccine, unspecified formulation Martha Hathaway [facility] NEGATED: Highlighted row has not occurred!10-21-2022 influenza virus vaccine, unspecified formulation Miguel Atkins [facility] Medicine Junior Payers Date Payer Category Payer Unknown [id number] 2023 Worker's Compensation [id number] 1959 Medicare [id number] 1959 Unknown [id number] 1955 Unknown [id number] [id number] 1955 Unknown [id number] 2.16.8 [id number] 1955 Unknown [id number] 2.16.8 [id number] 1955 Unknown [id number] 2.16.8 [id number] 1955 Unknown [id number] 2.16.8 [id number] 1955 Unknown [id number] 2.16.8 [id number] 1955 Unknown [id number] 2.16.8 [id number] 1955 Unknown [id number] 2.16.8 [id number] Social History Date Type Detail Facility Start: 10-02-2021 End: 10-30-2023 Tobacco smoking status Heavy tobacco smoker (finding) [facility] Comment on above: smokes 1/2 PPD smokes .5 PPD, start ed at age age 22 Tobacco smoking status Never [facility] Comment on above: smokes 1/2 PPD smokes .5 PPD, start ed at age age 22 Sex Assigned At Female [facility] Medical Equipment Procedure Code Equipment Code Equipment Origin al Text Equipment Identifier Dates FDA Start: 03-22-2019 FDA Start: 09-28-2019 {[id number] FDA Start: 10-12-2019 CYSTOSCOPY RETRO GRADE STENT INSERTION Fred Bonilla MD, Luis Valdez 03/22/19 Unknown Vagina FDA Start: 03-22-2019 CATARACT EXTRACT ION W/ INTRAOCULAR LENS Zahler DO, Og 09/28/19 Non Biological Eye L FDA Start: 09-28-2019 CYSTOSCOPY RETRO GRADE STENT INSERTION Fred Bonilla MD, Luis Valdez 03/22/19 Unknown Vagina FDA Start: 03-22-2019 CATARACT EXTRACT ION W/ INTRAOCULAR LENS Tessahler DO, Og 09/28/19 Non Biological Eye L FDA Start: 09-28-2019 CYSTOSCOPY RETRO GRADE STENT INSERTION Fred Bonilla MD, Luis Valdez 03/22/19 Unknown Vagina FDA Start: 03-22-2019 CATARACT EXTRACT ION W/ INTRAOCULAR LENS Zahler DO, Og 09/28/19 Non Biological Eye L FDA Start: 09-28-2019 CYSTOSCOPY RETRO GRADE STENT INSERTION Fred Bonilla MD, Luis Valdez 03/22/19 Unknown Vagina FDA Start: 03-22-2019 CATARACT EXTRACT ION W/ INTRAOCULAR LENS Tessahler DO, Og 09/28/19 Non Biological Eye L FDA Start: 09-28-2019 Functional Status Date Assessment Result Facility 10-30-2023 Functional Status N/A [facility] 08-21-2023 Functional Status N/A [facility] 10-21-2022 Functional Status N/A [facility] 04-18-2022 Functional Status N/A [facility] Clinical Notes 04-18-2022 to 10-30-2023 LaboratoryRadiologyLaboratoryRadiology Note Date & Type Note Facility 10-30-2023 Hospital Discharge instructions Patient Education 10/30/2023 15:37:17 VIS, Pneumococcal Polysaccharide Vaccine (PPSV23) - CDC (09/01/2019) Pneumococcal Polysaccharide Vaccine (PPSV23): What You Need to Know 1. Why get vaccinated? Pneumococcal polysaccharide vaccine (PPSV23) can prevent pneumococcal disease. Pneumococcal disease refers to any illness caused by pneumococcal bacteria. These bacteria can cause many types of illnesses, including pneumonia, which is an infection of the lungs. Pneumococcal bacteria are one of the most common causes of pneumonia. Besides pneumonia, pneumococcal bacteria can also cause: Ear infections Sinus infections Meningitis (infection of the tissue covering the brain and spinal cord) Bacteremia (bloodstream infection) Anyone can get pneumococcal disease, but children under 2 years of age, people with certain medical conditions, adults 65 years or older, and cigarette smokers are at the highest risk. Most pneumococcal infections are mild. However, some can result in long-term problems, such as brain damage or hearing loss. Meningitis, bacteremia, and pneumonia caused by pneumococcal disease can be fatal. 2. PPSV23 PPSV23 protects against 23 types of bacteria that cause pneumococcal disease. PPSV23 is recommended for: All adults 65 years or older, Anyone 2 years or older with certain medical conditions that can lead to an increased risk for pneumococcal disease. Most people need only one dose of PPSV23. A second dose of PPSV23, and another type of pneumococcal vaccine called PCV13, are recommended for certain high-risk groups. Your health care provider can give you more information. People 65 years or older should get a dose of PPSV23 even if they have already gotten one or more doses of the vaccine before they turned 65. 3. Talk with your health care provider Tell your vaccine provider if the person getting the vaccine: Has had an allergic reaction after a previous dose of PPSV23, or has any severe, life-threatening allergies. In some cases, your health care provider may decide to postpone PPSV23 vaccination to a future visit. People with minor illnesses, such as a cold, may be vaccinated. People who are moderately or severely ill should usually wait until they recover before getting PPSV23. Your health care provider can give you more information. 4. Risks of a vaccine reaction Redness or pain where the shot is given, feeling tired, fever, or muscle aches can happen after PPSV23. People sometimes faint after medical procedures, including vaccination. Tell your provider if you feel dizzy or have vision changes or ringing in the ears. As with any medicine, there is a very remote chance of a vaccine causing a severe allergic reaction, other serious injury, or . 5. What if there is a serious problem? An allergic reaction could occur after the vaccinated person leaves the clinic. If you see signs of a severe allergic reaction (hives, swelling of the face and throat, difficulty breathing, a fast heartbeat, dizziness, or weakness), call 9-1-1 and get the person to the nearest hospital. For other signs that concern you, call your health care provider. Adverse reactions should be reported to the Vaccine Adverse Event Reporting System (VAERS). Your health care provider will usually file this report, or you can do it yourself. Visit the VAERS website at www.vaers.[facility].gov or call . VAERS is only for reporting reactions, and VAERS staff do not give medical advice. 6. How can I learn more? Ask your health care provider. Call your local or state health department. Contact the Centers for Disease Control and Prevention (CDC): ?Call (4-689-UAK-INFO) or ?Visit CDC's website at www.cdc.gov/vaccines Source: CDC Vaccine Information Statement PPSV23 Vaccine (09/01/2019) This same material is available at www.cdc.gov for no charge. This information is not intended to replace advice given to you by your health care provider. Make sure you discuss any questions you have with your health care provider. Document Revised: 09/18/2022 Document Reviewed: 07/22/2022 [employer] Patient Education 2022 [employer]. 10/30/2023 15:37:01 Understanding Your Risk for Falls Understanding Your Risk for Falls Each year, millions of people have serious injuries from falls. It is important to understand your risk for falling. Talk with your health care provider about your risk and what you can do to lower it. There are actions you can take at home to lower your risk and prevent falls. If you do have a serious fall, make sure to tell your health care provider. Falling once raises your risk of falling again. How can falls affect me? Serious injuries from falls are common. These include: Broken bones, such as hip fractures. Head injuries, such as traumatic brain injuries (TBI) or concussion. A fear of falling can cause you to avoid activities and stay at home. This can make your muscles weaker and actually raise your risk for a fall. What can increase my risk? There are a number of risk factors that increase your risk for falling. The more risk factors you have, the higher your risk of falling. Serious injuries from a fall happen most often to people older than age 65. Children and young adults ages 15 29 are also at higher risk. Common risk factors include: Weakness in the lower body. Lack (deficiency) of vitamin D. Being generally weak or confused due to long-term (chronic) illness. Dizziness or balance problems. Poor vision. Medicines that cause dizziness or drowsiness. These can include medicines for your blood pressure, heart, anxiety, insomnia, or edema, as well as pain medicines and muscle relaxants. Other risk factors include: Drinking alcohol. Having had a fall in the past. Having depression. Having foot pain or wearing improper footwear. Working at a dangerous job. Having any of the following in your home: ?Tripping hazards, such as floor clutter or loose rugs. ?Poor lighting. ?Pets. Having dementia or memory loss. What actions can I take to lower my risk of falling? Physical activity Maintain physical fitness. Do strength and balance exercises. Consider taking a regular class to build strength and balance. Yoga and montrell chi are good options. Vision Have your eyes checked every year and your vision prescription updated as needed. Walking aids and footwear Wear nonskid shoes. Do not wear high heels. Do not walk around the house in socks or slippers. Use a cane or walker as told by your health care provider. Home safety Attach secure railings on both sides of your stairs. Install grab bars for your tub, shower, and toilet. Use a bath mat in your tub or shower. Use good lighting in all rooms. Keep a flashlight near your bed. Make sure there is a clear path from your bed to the bathroom. Use night-lights. Do not use throw rugs. Make sure all carpeting is taped or tacked down securely. Remove all clutter from walkways and stairways, including extension cords. Repair uneven or broken steps. Avoid walking on icy or slippery surfaces. Walk on the grass instead of on icy or slick sidewalks. Use ice melt to get rid of ice on walkways. Use a cordless phone. Questions to ask your health care provider Can you help me check my risk for a fall? Do any of my medicines make me more likely to fall? Should I take a vitamin D supplement? What exercises can I do to improve my strength and balance? Should I make an appointment to have my vision checked? Do I need a bone density test to check for weak bones or osteoporosis? Would it help to use a cane or a walker? Where to find more information Centers for Disease Control and Prevention, [place]: www.cdc.gov Community-Based Fall Prevention Programs: www.cdc.gov National [place] on Aging: www.erich.nih.gov Contact a health care provider if: You fall at home. You are afraid of falling at home. You feel weak, drowsy, or dizzy. Summary Serious injuries from a fall happen most often to people older than age 65. Children and young adults ages 15 29 are also at higher risk. Talk with your health care provider about your risks for falling and how to lower those risks. Taking certain precautions at home can lower your risk for falling. If you fall, always tell your health care provider. This information is not intended to replace advice given to you by your health care provider. Make sure you discuss any questions you have with your health care provider. Document Revised: 05/23/2021 Document Reviewed: 05/23/2021 [employer] Patient Education 2022 [employer]. 10/30/2023 15:36:56 Exercising to Lose Weight Exercising to Lose Weight Getting regular exercise is important for everyone. It is especially important if you are overweight. Being overweight increases your risk of heart disease, stroke, diabetes, high blood pressure, and several types of cancer. Exercising, and reducing the calories you consume, can help you lose weight and improve fitness and health. Exercise can be moderate or vigorous intensity. To lose weight, most people need to do a certain amount of moderate or vigorous-intensity exercise each week. How can exercise affect me? You lose weight when you exercise enough to burn more calories than you eat. Exercise also reduces body fat and builds muscle. The more muscle you have, the more calories you burn. Exercise also: Improves mood. Reduces stress and tension. Improves your overall fitness, flexibility, and endurance. Increases bone strength. Moderate-intensity exercise Moderate-intensity exercise is any activity that gets you moving enough to burn at least three times more energy (calories) than if you were sitting. Examples of moderate exercise include: Walking a mile in 15 minutes. Doing light yard work. Biking at an easy pace. Most people should get at least 150 minutes of moderate-intensity exercise a week to maintain their body weight. Vigorous-intensity exercise Vigorous-intensity exercise is any activity that gets you moving enough to burn at least six times more calories than if you were sitting. When you exercise at this intensity, you should be working hard enough that you are not able to carry on a conversation. Examples of vigorous exercise include: Running. Playing a team sport, such as football, basketball, and soccer. Jumping rope. Most people should get at least 75 minutes a week of vigorous exercise to maintain their body weight. What actions can I take to lose weight? The amount of exercise you need to lose weight depends on: Your age. The type of exercise. Any health conditions you have. Your overall physical ability. Talk to your health care provider about how much exercise you need and what types of activities are safe for you. Nutrition Make changes to your diet as told by your health care provider or diet and animal nutritionist (dietitian). This may include: ?Eating fewer calories. ?Eating more protein. ?Eating less unhealthy fats. ?Eating a diet that includes fresh fruits and vegetables, whole grains, low-fat dairy products, and lean protein. ?Avoiding foods with added fat, salt, and sugar. Drink plenty of water while you exercise to prevent dehydration or heat stroke. Activity Choose an activity that you enjoy and set realistic goals. Your health care provider can help you make an exercise plan that works for you. Exercise at a moderate or vigorous intensity most days of the week. ?The intensity of exercise may vary from person to person. You can tell how intense a workout is for you by paying attention to your breathing and heartbeat. Most people will notice their breathing and heartbeat get faster with more intense exercise. Do resistance training twice each week, such as: ?Push-ups. ?Sit-ups. ?Lifting weights. ?Using resistance bands. Getting short amounts of exercise can be just as helpful as long, structured periods of exercise. If you have trouble finding time to exercise, try doing these things as part of your daily routine: ?Get up, stretch, and walk around every 30 minutes throughout the day. ?Go for a walk during your lunch break. ?Park your car farther away from your destination. ?If you take public transportation, get off one stop early and walk the rest of the way. ?Make phone calls while standing up and walking around. ?Take the stairs instead of elevators or escalators. Wear comfortable clothes and shoes with good support. Do not exercise so much that you hurt yourself, feel dizzy, or get very short of breath. Where to find more information U.S. Department of Health and Human Services: www.hhs.gov Centers for Disease Control and Prevention: www.cdc.gov Contact a health care provider: Before starting a new exercise program. If you have questions or concerns about your weight. If you have a medical problem that keeps you from exercising. Get help right away if: You have any of the following while exercising: ?Injury. ?Dizziness. ?Difficulty breathing or shortness of breath that does not go away when you stop exercising. ?Chest pain. ?Rapid heartbeat. These symptoms may represent a serious problem that is an emergency. Do not wait to see if the symptoms will go away. Get medical help right away. Call your local emergency services (911 in the [place] Do not drive yourself to the hospital. Summary Getting regular exercise is especially important if you are overweight. Being overweight increases your risk of heart disease, stroke, diabetes, high blood pressure, and several types of cancer. Losing weight happens when you burn more calories than you eat. Reducing the amount of calories you eat, and getting regular moderate or vigorous exercise each week, helps you lose weight. This information is not intended to replace advice given to you by your health care provider. Make sure you discuss any questions you have with your health care provider. Document Revised: 12/16/2021 Document Reviewed: 12/16/2021 [employer] Patient Education 2022 [employer]. 10/30/2023 15:36:55 DASH Eating Plan DASH Eating Plan DASH stands for Dietary Approaches to Stop Hypertension. The DASH eating plan is a healthy eating plan that has been shown to: Reduce high blood pressure (hypertension). Reduce your risk for type 2 diabetes, heart disease, and stroke. Help with weight loss. What are tips for following this plan? Reading food labels Check food labels for the amount of salt (sodium) per serving. Choose foods with less than 5 percent of the Daily Value of sodium. Generally, foods with less than 300 milligrams (mg) of sodium per serving fit into this eating plan. To find whole grains, look for the word whole as the first word in the ingredient list. Shopping Buy products labeled as low-sodium or no salt added. Buy fresh foods. Avoid canned foods and pre-made or frozen meals. Cooking Avoid adding salt when cooking. Use salt-free seasonings or herbs instead of table salt or sea salt. Check with your health care provider or pharmacist before using salt substitutes. Do not ly foods. Cook foods using healthy methods such as baking, boiling, grilling, roasting, and broiling instead. Cook with heart-healthy oils, such as olive, canola, avocado, soybean, or sunflower oil. Meal planning Eat a balanced diet that includes: ?4 or more servings of fruits and 4 or more servings of vegetables each day. Try to fill one-half of your plate with fruits and vegetables. ?6 8 servings of whole grains each day. ?Less than 6 oz (170 g) of lean meat, poultry, or fish each day. A 3-oz (85-g) serving of meat is about the same size as a deck of cards. One egg equals 1 oz (28 g). ?2 3 servings of low-fat dairy each day. One serving is 1 cup (237 mL). ?1 serving of nuts, seeds, or beans 5 times each week. ?2 3 servings of heart-healthy fats. Healthy fats called omega-3 fatty acids are found in foods such as walnuts, flaxseeds, fortified milks, and eggs. These fats are also found in cold-water fish, such as sardines, salmon, and mackerel. Limit how much you eat of: ?Canned or prepackaged foods. ?Food that is high in trans fat, such as some fried foods. ?Food that is high in saturated fat, such as fatty meat. ?Desserts and other sweets, sugary drinks, and other foods with added sugar. ?Full-fat dairy products. Do not salt foods before eating. Do not eat more than 4 egg yolks a week. Try to eat at least 2 vegetarian meals a week. Eat more home-cooked food and less restaurant, buffet, and fast food. Lifestyle When eating at a restaurant, ask that your food be prepared with less salt or no salt, if possible. If you drink alcohol: ?Limit how much you use to: ?0 1 drink a day for women who are not . ?0 2 drinks a day for men. ?Be aware of how much alcohol is in your drink. In the [place] one drink equals one 12 oz bottle of beer (355 mL), one 5 oz glass of wine (148 mL), or one 1 oz glass of hard liquor (44 mL). General information Avoid eating more than 2,300 mg of salt a day. If you have hypertension, you may need to reduce your sodium intake to 1,500 mg a day. Work with your health care provider to maintain a healthy body weight or to lose weight. Ask what an ideal weight is for you. Get at least 30 minutes of exercise that causes your heart to beat faster (aerobic exercise) most days of the week. Activities may include walking, swimming, or biking. Work with your health care provider or dietitian to adjust your eating plan to your individual calorie needs. What foods should I eat? Fruits All fresh, dried, or frozen fruit. Canned fruit in natural juice (without added sugar). Vegetables Fresh or frozen vegetables (raw, steamed, roasted, or grilled). Low-sodium or reduced-sodium tomato and vegetable juice. Low-sodium or reduced-sodium tomato sauce and tomato paste. Low-sodium or reduced-sodium canned vegetables. Grains Whole-grain or whole-wheat bread. Whole-grain or whole-wheat pasta. Brown rice. Oatmeal. Quinoa. Bulgur. Whole-grain and low-sodium cereals. Melissa bread. Low-fat, low-sodium crackers. Whole-wheat flour tortillas. Meats and other proteins Skinless chicken or turkey. Ground chicken or turkey. Pork with fat trimmed off. Fish and seafood. Egg whites. Dried beans, peas, or lentils. Unsalted nuts, nut butters, and seeds. Unsalted canned beans. Lean cuts of beef with fat trimmed off. Low-sodium, lean precooked or cured meat, such as sausages or meat loaves. Dairy Low-fat (1%) or fat-free (skim) milk. Reduced-fat, low-fat, or fat-free cheeses. Nonfat, low-sodium ricotta or cottage cheese. Low-fat or nonfat yogurt. Low-fat, low-sodium cheese. Fats and oils Soft margarine without trans fats. Vegetable oil. Reduced-fat, low-fat, or light mayonnaise and salad dressings (reduced-sodium). Canola, safflower, olive, avocado, soybean, and sunflower oils. Avocado. Seasonings and condiments Herbs. Spices. Seasoning mixes without salt. Other foods Unsalted popcorn and pretzels. Fat-free sweets. The items listed above may not be a complete list of foods and beverages you can eat. Contact a dietitian for more information. What foods should I avoid? Fruits Canned fruit in a light or heavy syrup. Fried fruit. Fruit in cream or butter sauce. Vegetables Creamed or fried vegetables. Vegetables in a cheese sauce. Regular canned vegetables (not low-sodium or reduced-sodium). Regular canned tomato sauce and paste (not low-sodium or reduced-sodium). Regular tomato and vegetable juice (not low-sodium or reduced-sodium). Pickles. Olives. Grains Baked goods made with fat, such as croissants, muffins, or some breads. Dry pasta or rice meal packs. Meats and other proteins Fatty cuts of meat. Ribs. Fried meat. Jaime. Bologna, salami, and other precooked or cured meats, such as sausages or meat loaves. Fat from the back of a pig (fatback). Bratwurst. Salted nuts and seeds. Canned beans with added salt. Canned or smoked fish. Whole eggs or egg yolks. Chicken or turkey with skin. Dairy Whole or 2% milk, cream, and agfs-wxc-zsiv. Whole or full-fat cream cheese. Whole-fat or sweetened yogurt. Full-fat cheese. Nondairy creamers. Whipped toppings. Processed cheese and cheese spreads. Fats and oils Butter. Stick margarine. Lard. Shortening. Ghee. Jaime fat. Tropical oils, such as coconut, palm kernel, or palm oil. Seasonings and condiments Onion salt, garlic salt, seasoned salt, table salt, and sea salt. Worcestershire sauce. Tartar sauce. Barbecue sauce. Teriyaki sauce. Soy sauce, including reduced-sodium. Steak sauce. Canned and packaged gravies. Fish sauce. Oyster sauce. Cocktail sauce. Store-bought horseradish. Ketchup. Mustard. Meat flavorings and tenderizers. Bouillon cubes. Hot sauces. Pre-made or packaged marinades. Pre-made or packaged taco seasonings. Relishes. Regular salad dressings. Other foods Salted popcorn and pretzels. The items listed above may not be a complete list of foods and beverages you should avoid. Contact a dietitian for more information. Where to find more information National Heart, Lung, and Blood [place]: www.nhlbi.nih.gov [place] [employer] Association: www.heart.org Academy of Nutrition and Dietetics: www.eatright.org National Kidney Foundation: www.kidney.org Summary The DASH eating plan is a healthy eating plan that has been shown to reduce high blood pressure (hypertension). It may also reduce your risk for type 2 diabetes, heart disease, and stroke. When on the DASH eating plan, aim to eat more fresh fruits and vegetables, whole grains, lean proteins, low-fat dairy, and heart-healthy fats. With the DASH eating plan, you should limit salt (sodium) intake to 2,300 mg a day. If you have hypertension, you may need to reduce your sodium intake to 1,500 mg a day. Work with your health care provider or dietitian to adjust your eating plan to your individual calorie needs. This information is not intended to replace advice given to you by your health care provider. Make sure you discuss any questions you have with your health care provider. Document Revised: 09/22/2020 Document Reviewed: 09/22/2020 [employer] Patient Education 2022 [employer]. 10/30/2023 15:36:53 BMI for Adults BMI for Adults What is BMI? Body mass index (BMI) is a number that is calculated from a person's weight and height. BMI can help estimate how much of a person's weight is composed of fat. BMI does not measure body fat directly. Rather, it is an alternative to procedures that directly measure body fat, which can be difficult and expensive. BMI can help identify people who may be at higher risk for certain medical problems. What are BMI measurements used for? BMI is used as a screening tool to identify possible weight problems. It helps determine whether a person is obese, overweight, a healthy weight, or underweight. BMI is useful for: Identifying a weight problem that may be related to a medical condition or may increase the risk for medical problems. Promoting changes, such as changes in diet and exercise, to help reach a healthy weight. BMI screening can be repeated to see if these changes are working. How is BMI calculated? BMI involves measuring your weight in relation to your height. Both height and weight are measured, and the BMI is calculated from those numbers. This can be done either in [place] ([place] or metric measurements. Note that charts and online BMI calculators are available to help you find your BMI quickly and easily without having to do these calculations yourself. To calculate your BMI in [place] measurements: 1.Measure your weight in pounds (lb). 2.Multiply the number of pounds by 703. For example, for a person who weighs 180 lb, multiply that number by 703, which equals 126,540. 3.Measure your height in inches. Then multiply that number by itself to get a measurement called inches squared. For example, for a person who is 70 inches tall, the inches squared measurement is 70 inches x 70 inches, which equals 4,900 inches squared. 4.Divide the total from step 2 (number of lb x 703) by the total from step 3 (inches squared): 126,540 4,900 = 25.8. This is your BMI. To calculate your BMI in metric measurements: 1.Measure your weight in kilograms (kg). 2.Measure your height in meters (m). Then multiply that number by itself to get a measurement called meters squared. For example, for a person who is 1.75 m tall, the meters squared measurement is 1.75 m x 1.75 m, which is equal to 3.1 meters squared. 3.Divide the number of kilograms (your weight) by the meters squared number. In this example: 70 3.1 = 22.6. This is your BMI. What do the results mean? BMI charts are used to identify whether you are underweight, normal weight, overweight, or obese. The following guidelines will be used: Underweight: BMI less than 18.5. Normal weight: BMI between 18.5 and 24.9. Overweight: BMI between 25 and 29.9. Obese: BMI of 30 or above. Keep these notes in mind: Weight includes both fat and muscle, so someone with a muscular build, such as an athlete, may have a BMI that is higher than 24.9. In cases like these, BMI is not an accurate measure of body fat. To determine if excess body fat is the cause of a BMI of 25 or higher, further assessments may need to be done by a health care provider. BMI is usually interpreted in the same way for men and women. Where to find more information For more information about BMI, including tools to quickly calculate your BMI, go to these websites: Centers for Disease Control and Prevention: www.cdc.gov [place] Heart Association: www.heart.org National Heart, Lung, and Blood [place]: www.nhlbi.nih.gov Summary Body mass index (BMI) is a number that is calculated from a person's weight and height. BMI may help estimate how much of a person's weight is composed of fat. BMI can help identify those who may be at higher risk for certain medical problems. BMI can be measured using [place] measurements or metric measurements. BMI charts are used to identify whether you are underweight, normal weight, overweight, or obese. This information is not intended to replace advice given to you by your health care provider. Make sure you discuss any questions you have with your health care provider. Document Revised: 07/12/2020 Document Reviewed: 05/19/2020 [employer] Patient Education 2022 [employer]. [facility] 10-02-2023 Note New patient here to establish care. Ref from Dr. Dietrich for surgery clearance prior to wrist surgery. She smokes about 1/2 PPD and does get SOB with steps. Says she can ambulate with no problems. Denies chest pain, palpitations, and lightheadedness. Had ECG, CXR, and labs on 09/29/2023. Review of Systems Cardiovascular: Positive for dyspnea on exertion (with steps) and leg swelling (resolves by morning). Respiratory: Positive for cough. Musculoskeletal: Positive for joint pain. Psychiatric/Behavioral: Positive for depression. All other systems reviewed and are negative. [facility] 10-02-2023 Note Cardiovascular Medic ine [facility] SUBJECTIVE No chief complaint on file. RORY Tejada is a 68 y.o. female here as a new patient with past medical history of tobacco dependence, depression and arthritis. Here for preoperative cardiac risk stratification for wrist surgery tomorrow. She was found to have and abnormal EKG while undergoing preoperative work-up with Q waves in the inferior leads. Reports prior abnormal EKG which was followed by an echocardiogram that was unremarkable many years ago. She reports she has been doing well, adamantly denies experiencing chest pain, significant or worsening shortness of breath, or palpitations. Her overall activity is limited by arthritis in her knees. She is able to be physically active and shops for about [address] with her sister. Mother had atrial fibrillation and father had a TIA. No known personal or family history of coronary artery disease. Allergies Allergen Reactions Iodinated Contrast Media Hives OK for topical iodine Penicillins Patient Active Problem List Diagnosis ANNA positive Calculus of kidney CTS (carpal tunnel syndrome) Height loss Hypertension Itching Knee pain, bilateral Nicotine dependence, uncomplicated Osteopenia Pathologic fracture of other specified site Secondary osteoarthritis of multiple sites Smoker Stress fracture of foot No past medical history on file. Past Surgical History: Procedure Laterality Date FOOT SURGERY REPLACEMENT TOTAL HIP ONCOLOGIC Family History Problem Relation Name Age of Onset Atrial fibrillation Mother Diabetes Mother Other (end stage renal disease) Mother Transient ischemic attack Father Stroke Maternal Grandmother Social History Tobacco Use Smoking status: Every Day Packs/day: 0.50 Types: Cigarettes Smokeless tobacco: Never Substance Use Topics Alcohol use: Not Currently ROS OBJECTIVE Visit Vitals BP (!) 140/94 (BP Location: Left arm, Patient Position: Sitting) Pulse 76 Ht 1.676 m (5' 6 ) Wt 98.9 kg (218 lb) SpO2 96% BMI 35.19 kg/m??? Smoking Status Every Day BSA 2.15 m??? Medications: Current Outpatient Medications: DULoxetine (Cymbalta) [address] capsule, Take 60 mg by mouth in the morning. Do not crush or chew., Disp: , Rfl: Physical Exam Constitutional: Appearance: She is obese. Cardiovascular: Rate and Rhythm: Normal rate and regular rhythm. Heart sounds: Normal heart sounds. No murmur heard. No friction rub. Pulmonary: Effort: Pulmonary effort is normal. No respiratory distress. Breath sounds: No wheezing or rales. Skin: General: Skin is warm and dry. Neurological: General: No focal deficit present. Mental Status: She is alert and oriented to person, place, and time. Labs: 09/29/2023 WBC 12.5, hemoglobin 14.8, hematocrit 45.8, platelets 305 sodium 141, potassium 3.5, chloride 107, CO2 25.3, BUN 13, serum creatinine 0.83, estimated GFR greater than 60% Testing/Procedures: No echocardiogram results found for the past 14 days No echocardiogram results found for the past 12 months No results found for this or any previous visit (from the past 4464 hour(s)). ASSESSMENT/PLAN: Diagnosis Plan 1. Encounter for pre-operative cardiovascular clearance 2. Abnormal EKG Transthoracic echo (TTE) complete 3. Elevated blood pressure reading Transthoracic echo (TTE) complete 1. Encounter for preoperative cardiovascular risk stratification - I reviewed EKG obtained on 09/29/2023, showed prominent Q waves predominantly in lead III with upright T waves and nondiagnostic Q-wave in aVF unlikely related to prior infarct. Given absence of symptoms to suggest angina and good functional capacity she is okay to proceed with recommended orthopedic surgery without further cardiac work-up. Will obtain repeat echocardiogram to evaluate structural abnormalitiess. 2. Elevated blood pressure reading - I discussed need for adequate blood pressure management for prevention of target endorgan damage. She reports blood pressure has been well controlled elsewhere. She will obtain a home blood pressure monitor and check blood pressure at least once daily. She will bring log to follow-up appointment. Follow up in about 3 months (around 01/01/2024). Dario [facility] Cardiovascular Medicine [facility] 08-21-2023 Hospital Discharge instructions Patient Education 08/21/2023 15:21:56 Parotitis, Nuyk-ti-[id number] Parotitis Parotitis means that you have irritation and swelling (inflammation) in one or both of your parotid glands. These glands make saliva. They are found on each side of your face, below and in front of your earlobes. You may or may not have pain with this condition. What are the causes? This condition may be caused by: Infections from germs (bacteria or viruses). Something blocking the flow of saliva through the parotid glands. This can be a stone, scar tissue, or a tumor. Diseases that cause your body's defense system (immune system) to attack healthy cells in your salivary glands. These are called autoimmune diseases. What increases the risk? Being 50 years old or older. Not drinking enough fluids (being dehydrated). Drinking too much alcohol. Having: ?A dry mouth. ?Diabetes. ?Gout. ?A long-term illness. Not taking good care of your mouth and teeth (poor oral hygiene). Having had radiation treatments to the head and neck. Taking certain medicines. What are the signs or symptoms? Swelling under and in front of the ear. This may get worse after you eat. Pain and tenderness over the parotid gland. This may get worse after you eat. Redness and warmth of the skin over the parotid gland. Fever or chills. Pus coming from the ducts inside the mouth. Dry mouth. A bad taste in the mouth. How is this treated? Treatment depends on the cause. It may include: Antibiotic medicine for an infection from bacteria. NSAIDs, such as ibuprofen, to treat pain and swelling. Drinking more fluids. Removing a stone or obstruction. Treating a disease that is causing parotitis. Surgery to drain an infection, remove a growth, or remove the whole gland. Treatment may not be needed if the swelling goes away with home care. Follow these instructions at home: Medicines Take yimz-los-vtlyoui and prescription medicines only as told by your doctor. If you were prescribed an antibiotic medicine, take it as told by your doctor. Do not stop taking it even if you start to feel better. Managing pain and swelling If told, put heat on the affected area. Do this as often as told by your doctor. Use the heat source that your doctor recommends, such as a moist heat pack or a heating pad. ?Place a towel between your skin and the heat source. ?Leave the heat on for 20 30 minutes. ?Take off the heat if your skin turns bright red. This is very important. If you cannot feel pain, heat, or cold, you have a greater risk of getting burned. Gargle with salt water 3 4 times a day or as needed. To make salt water, dissolve 1 tsp (3 6 g) of salt in 1 cup (237 mL) of warm water. Gently rub your parotid glands as told by your doctor. General instructions Drink enough fluid to keep your pee (urine) pale yellow. Keep your mouth clean and moist. Suck on sour candy. This may help to: ?Make your mouth less dry. ?Make more saliva. Take good care of your mouth: ?[place] your teeth at least two times a day. ?Floss your teeth every day. ?See your dentist regularly. Do not smoke or use any products that contain nicotine or tobacco. If you need help quitting, ask your doctor. Do not drink alcohol. Keep all follow-up visits. Contact a doctor if: You have a fever or chills. You have new symptoms. Your symptoms get worse. Your symptoms do not get better with treatment. Get help right away if: You have trouble breathing or swallowing. These symptoms may be an emergency. Get help right away. Call your local emergency services (911 in the [place] Do not wait to see if the symptoms will go away. Do not drive yourself to the hospital. Summary Parotitis means that you have irritation and swelling (inflammation) in one or both of your parotid glands. Symptoms include pain and swelling under and in front of the ear. Treatment for parotitis depends on the cause. In some cases, the condition may go away on its own with home care. You should drink plenty of fluids, take good care of your mouth, and do not use products that contain nicotine or tobacco. This information is not intended to replace advice given to you by your health care provider. Make sure you discuss any questions you have with your health care provider. Document Revised: 03/01/2022 Document Reviewed: 03/01/2022 [employer] Patient Education 2022 [employer]. 08/21/2023 15:21:53 Sinus Infection, Adult Sinus Infection, Adult A sinus infection, also called sinusitis, is inflammation of your sinuses. Sinuses are hollow spaces in the bones around your face. Your sinuses are located: Around your eyes. In the middle of your forehead. Behind your nose. In your cheekbones. Mucus normally drains out of your sinuses. When your nasal tissues become inflamed or swollen, mucus can become trapped or blocked. This allows bacteria, viruses, and fungi to grow, which leads to infection. Most infections of the sinuses are caused by a virus. A sinus infection can develop quickly. It can last for up to 4 weeks (acute) or for more than 12 weeks (chronic). A sinus infection often develops after a cold. What are the causes? This condition is caused by anything that creates swelling in the sinuses or stops mucus from draining. This includes: Allergies. Asthma. Infection from bacteria or viruses. Deformities or blockages in your nose or sinuses. Abnormal growths in the nose (nasal polyps). Pollutants, such as chemicals or irritants in the air. Infection from fungi. This is rare. What increases the risk? You are more likely to develop this condition if you: Have a weak body defense system (immune system). Do a lot of swimming or diving. Overuse nasal sprays. Smoke. What are the signs or symptoms? The main symptoms of this condition are pain and a feeling of pressure around the affected sinuses. Other symptoms include: Stuffy nose or congestion that makes it difficult to breathe through your nose. Thick yellow or greenish drainage from your nose. Tenderness, swelling, and warmth over the affected sinuses. A cough that may get worse at night. Decreased sense of smell and taste. Extra mucus that collects in the throat or the back of the nose (postnasal drip) causing a sore throat or bad breath. Tiredness (fatigue). Fever. How is this diagnosed? This condition is diagnosed based on: Your symptoms. Your medical history. A physical exam. Tests to find out if your condition is acute or chronic. This may include: ?Checking your nose for nasal polyps. ?Viewing your sinuses using a device that has a light (endoscope). ?Testing for allergies or bacteria. ?Imaging tests, such as an MRI or CT scan. In rare cases, a bone biopsy may be done to rule out more serious types of fungal sinus disease. How is this treated? Treatment for a sinus infection depends on the cause and whether your condition is chronic or acute. If caused by a virus, your symptoms should go away on their own within 10 days. You may be given medicines to relieve symptoms. They include: ?Medicines that shrink swollen nasal passages (decongestants). ?A spray that eases inflammation of the nostrils (topical intranasal corticosteroids). ?Rinses that help get rid of thick mucus in your nose (nasal saline washes). ?Medicines that treat allergies (antihistamines). ?Omxr-ism-nhdsetd pain relievers. If caused by bacteria, your health care provider may recommend waiting to see if your symptoms improve. Most bacterial infections will get better without antibiotic medicine. You may be given antibiotics if you have: ?A severe infection. ?A weak immune system. If caused by narrow nasal passages or nasal polyps, surgery may be needed. Follow these instructions at home: Medicines Take, use, or apply xboi-kuj-nzerihe and prescription medicines only as told by your health care provider. These may include nasal sprays. If you were prescribed an antibiotic medicine, take it as told by your health care provider. Do not stop taking the antibiotic even if you start to feel better. Hydrate and humidify Drink enough fluid to keep your urine pale yellow. Staying hydrated will help to thin your mucus. Use a cool mist humidifier to keep the humidity level in your home above 50%. Inhale steam for 10 15 minutes, 3 4 times a day, or as told by your health care provider. You can do this in the bathroom while a hot shower is running. Limit your exposure to cool or dry air. Rest Rest as much as possible. Sleep with your head raised (elevated). Make sure you get enough sleep each night. General instructions Apply a warm, moist washcloth to your face 3 4 times a day or as told by your health care provider. This will help with discomfort. Use nasal saline washes as often as told by your health care provider. Wash your hands often with soap and water to reduce your exposure to germs. If soap and water are not available, use hand controller operations and hr manager. Do not smoke. Avoid being around people who are smoking (secondhand smoke). Keep all follow-up visits. This is important. Contact a health care provider if: You have a fever. Your symptoms get worse. Your symptoms do not improve within 10 days. Get help right away if: You have a severe headache. You have persistent vomiting. You have severe pain or swelling around your face or eyes. You have vision problems. You develop confusion. Your neck is stiff. You have trouble breathing. These symptoms may be an emergency. Get help right away. Call 911. Do not wait to see if the symptoms will go away. Do not drive yourself to the hospital. Summary A sinus infection is soreness and inflammation of your sinuses. Sinuses are hollow spaces in the bones around your face. This condition is caused by nasal tissues that become inflamed or swollen. The swelling traps or blocks the flow of mucus. This allows bacteria, viruses, and fungi to grow, which leads to infection. If you were prescribed an antibiotic medicine, take it as told by your health care provider. Do not stop taking the antibiotic even if you start to feel better. Keep all follow-up visits. This is important. This information is not intended to replace advice given to you by your health care provider. Make sure you discuss any questions you have with your health care provider. Document Revised: 09/24/2022 Document Reviewed: 09/24/2022 [employer] Patient Education 2022 [employer]. Follow Up Care 08/21/2023 13:44:38 With:Martha Hathaway CNP Address:Unknown When: Unknown [facility] 05-09-2022 Note PROCEDURE: XR FOOT R T MIN 3 VIEWS HISTORY: Pain in right foot ; chronic first metatarsal pain; history of bunion and hammertoe repair COMPARISON: None. FINDINGS: BONES:Marked splaying of the first and second toes with significant medial deviation of the first toe. Prior osteotomy and repair of the distal first metatarsal and head of second metatarsal. Resection of head of third proximal phalanx. Mild degenerative changes of the third metatarsophalangeal joint. SOFT TISSUES:No visible soft tissue swelling. EFFUSION:None visible. OTHER: Negative. IMPRESSION: 1. No appreciable acute bone abnormality. 2. 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 Electronically authenticated by: DENIA JOHNS Date: 2022-05-09 12:09 [facility] 04-18-2022 Hospital Discharge instructions Patient Education 04/18/2022 18:27:01 Radicular Pain Radicular Pain Radicular pain is a type of pain that spreads from your back or neck along a spinal nerve. Spinal nerves are nerves that leave the spinal cord and go to the muscles. Radicular pain is sometimes called radiculopathy, radiculitis, or a pinched nerve. When you have this type of pain, you may also have weakness, numbness, or tingling in the area of your body that is supplied by the nerve. The pain may feel sharp and burning. Depending on which spinal nerve is affected, the pain may occur in the: Neck area (cervical radicular pain). You may also feel pain, numbness, weakness, or tingling in the arms. Mid-spine area (thoracic radicular pain). You would feel this pain in the back and chest. This type is rare. Lower back area (lumbar radicular pain). You would feel this pain as low back pain. You may feel pain, numbness, weakness, or tingling in the buttocks or legs. Sciatica is a type of lumbar radicular pain that shoots down the back of the leg. Radicular pain occurs when one of the spinal nerves becomes irritated or squeezed (compressed). It is often caused by something pushing on a spinal nerve, such as one of the bones of the spine (vertebrae) or one of the round cushions between vertebrae (intervertebral disks). This can result from: An injury. Wear and tear or aging of a disk. The growth of a bone spur that pushes on the nerve. Radicular pain often goes away when you follow instructions from your health care provider for relieving pain at home. Follow these instructions at home: Managing pain If directed, put ice on the affected area: ?Put ice in a plastic bag. ?Place a towel between your skin and the bag. ?Leave the ice on for 20 minutes, 2 3 times a day. If directed, apply heat to the affected area as often as told by your health care provider. Use the heat source that your health care provider recommends, such as a moist heat pack or a heating pad. ?Place a towel between your skin and the heat source. ?Leave the heat on for 20 30 minutes. ?Remove the heat if your skin turns bright red. This is especially important if you are unable to feel pain, heat, or cold. You may have a greater risk of getting burned. Activity Do not sit or rest in bed for long periods of time. Try to stay as active as possible. Ask your health care provider what type of exercise or activity is best for you. Avoid activities that make your pain worse, such as bending and lifting. Do not lift anything that is heavier than 10 lb (4.5 kg), or the limit that you are told, until your health care provider says that it is safe. Practice using proper technique when lifting items. Proper lifting technique involves bending your knees and rising up. Do strength and qogjp-dx-xwxhmm exercises only as told by your health care provider or physical therapist. General instructions Take fucz-arb-hpmsshj and prescription medicines only as told by your health care provider. Pay attention to any changes in your symptoms. Keep all follow-up visits as told by your health care provider. This is important. ?Your health care provider may send you to a physical therapist to help with this pain. Contact a health care provider if: Your pain and other symptoms get worse. Your pain medicine is not helping. Your pain has not improved after a few weeks of home care. You have a fever. Get help right away if: You have severe pain, weakness, or numbness. You have difficulty with bladder or bowel control. Summary Radicular pain is a type of pain that spreads from your back or neck along a spinal nerve. When you have radicular pain, you may also have weakness, numbness, or tingling in the area of your body that is supplied by the nerve. The pain may feel sharp or burning. Radicular pain may be treated with ice, heat, medicines, or physical therapy. This information is not intended to replace advice given to you by your health care provider. Make sure you discuss any questions you have with your health care provider. Document Released: 11/27/2005 Document Revised: 05/04/2019 Document Reviewed: 05/04/2019 [employer] Patient Education 2020 [employer]. 04/18/2022 18:26:03 Tobacco Use Disorder Tobacco Use Disorder Tobacco use disorder (TUD) occurs when a person craves, seeks, and uses tobacco, regardless of the consequences. This disorder can cause problems with mental and physical health. It can affect your ability to have healthy relationships, and it can keep you from meeting your responsibilities at work, home, or school. Tobacco may be: Smoked as a cigarette or cigar. Inhaled using e-cigarettes. Smoked in a pipe or hookah. Chewed as smokeless tobacco. Inhaled into the nostrils as snuff. Tobacco products contain a dangerous chemical called nicotine, which is very addictive. Nicotine triggers hormones that make the body feel stimulated and works on areas of the brain that make you feel good. These effects can make it hard for people to quit nicotine. Tobacco contains many other unsafe chemicals that can damage almost every organ in the body. Smoking tobacco also puts others in danger due to fire risk and possible health problems caused by breathing in secondhand smoke. What are the signs or symptoms? Symptoms of TUD may include: Being unable to slow down or stop your tobacco use. Spending an abnormal amount of time getting or using tobacco. Craving tobacco. Cravings may last for up to 6 months after quitting. Tobacco use that: ?Interferes with your work, school, or home life. ?Interferes with your personal and social relationships. ?Makes you give up activities that you once enjoyed or found important. Using tobacco even though you know that it is: ?Dangerous or bad for your health or someone else's health. ?Causing problems in your life. Needing more and more of the substance to get the same effect (developing tolerance). Experiencing unpleasant symptoms if you do not use the substance (withdrawal). Withdrawal symptoms may include: ?Depressed, anxious, or irritable mood. ?Difficulty concentrating. ?Increased appetite. ?Restlessness or trouble sleeping. Using the substance to avoid withdrawal. How is this diagnosed? This condition may be diagnosed based on: Your current and past tobacco use. Your health care provider may ask questions about how your tobacco use affects your life. A physical exam. You may be diagnosed with TUD if you have at least two symptoms within a 12-month period. How is this treated? This condition is treated by stopping tobacco use. Many people are unable to quit on their own and need help. Treatment may include: Nicotine replacement therapy (NRT). NRT provides nicotine without the other harmful chemicals in tobacco. NRT gradually lowers the dosage of nicotine in the body and reduces withdrawal symptoms. NRT is available as: ?Rscp-qtr-zfuxwgl gums, lozenges, and skin patches. ?Prescription mouth inhalers and nasal sprays. Medicine that acts on the brain to reduce cravings and withdrawal symptoms. A type of talk therapy that examines your triggers for tobacco use, how to avoid them, and how to cope with cravings (behavioral therapy). Hypnosis. This may help with withdrawal symptoms. Joining a support group for others coping with TUD. The best treatment for TUD is usually a combination of medicine, talk therapy, and support groups. Recovery can be a long process. Many people start using tobacco again after stopping (relapse). If you relapse, it does not mean that treatment will not work. Follow these instructions at home: Lifestyle Do not use any products that contain nicotine or tobacco, such as cigarettes and e-cigarettes. Avoid things that trigger tobacco use as much as you can. Triggers include people and situations that usually cause you to use tobacco. Avoid drinks that contain caffeine, including coffee. These may worsen some withdrawal symptoms. Find ways to manage stress. Wanting to smoke may cause stress, and stress can make you want to smoke. Relaxation techniques such as deep breathing, meditation, and yoga may help. Attend support groups as needed. These groups are an important part of long-term recovery for many people. General instructions Take deqc-pps-vhiggdq and prescription medicines only as told by your health care provider. Check with your health care provider before taking any new prescription or nneo-ypu-gfmrfpy medicines. Decide on a friend, family member, or smoking quit-line (such as 3-776-XJLE-NOW in the [place] that you can call or text when you feel the urge to smoke or when you need help coping with cravings. Keep all follow-up visits as told by your health care provider and therapist. This is important. Contact a health care provider if: You are not able to take your medicines as prescribed. Your symptoms get worse, even with treatment. Summary Tobacco use disorder (TUD) occurs when a person craves, seeks, and uses tobacco regardless of the consequences. This condition may be diagnosed based on your current and past tobacco use and a physical exam. Many people are unable to quit on their own and need help. Recovery can be a long process. The most effective treatment for TUD is usually a combination of medicine, talk therapy, and support groups. This information is not intended to replace advice given to you by your health care provider. Make sure you discuss any questions you have with your health care provider. Document Released: 06/25/2005 Document Revised: 10/07/2018 Document Reviewed: 10/07/2018 [employer] Patient Education 2020 [employer]. 04/18/2022 18:25:59 BMI for Adults BMI for Adults Body mass index (BMI) is a number that is calculated from a person's weight and height. BMI may help to estimate how much of a person's weight is composed of fat. BMI can help identify those who may be at higher risk for certain medical problems. How is BMI used with adults? BMI is used as a screening tool to identify possible weight problems. It is used to check whether a person is obese, overweight, healthy weight, or underweight. How is BMI calculated? BMI measures your weight and compares it to your height. This can be done either in [place] or metric measurements. Note that charts are available to help you find your BMI quickly and easily without having to do these calculations yourself. To calculate your BMI in [place] measurements, your health care provider will: 1.Measure your weight in pounds (lb). 2.Multiply the number of pounds by 703. For example, for a person who weighs 180 lb, multiply that number by 703, which equals 126,540. 3.Measure your height in inches (in). Then multiply that number by itself to get a measurement called inches squared. For example, for a person who is 70 in tall, the inches squared measurement is 70 in x 70 in, which equals 4900 inches squared. 4.Divide the total from Step 2 (number of lb x 703) by the total from Step 3 (inches squared): 126,540 4900 = 25.8. This is your BMI. To calculate your BMI in metric measurements, your health care provider will: 1.Measure your weight in kilograms (kg). 2.Measure your height in meters (m). Then multiply that number by itself to get a measurement called meters squared. For example, for a person who is 1.75 m tall, the meters squared measurement is 1.75 m x 1.75 m, which is equal to 3.1 meters squared. 3.Divide the number of kilograms (your weight) by the meters squared number. In this example: 70 3.1 = 22.6. This is your BMI. How is BMI interpreted? To interpret your results, your health care provider will use BMI charts to identify whether you are underweight, normal weight, overweight, or obese. The following guidelines will be used: Underweight: BMI less than 18.5. Normal weight: BMI between 18.5 and 24.9. Overweight: BMI between 25 and 29.9. Obese: BMI of 30 and above. Please note: Weight includes both fat and muscle, so someone with a muscular build, such as an athlete, may have a BMI that is higher than 24.9. In cases like these, BMI is not an accurate measure of body fat. To determine if excess body fat is the cause of a BMI of 25 or higher, further assessments may need to be done by a health care provider. BMI is usually interpreted in the same way for men and women. Why is BMI a useful tool? BMI is useful in two ways: Identifying a weight problem that may be related to a medical condition, or that may increase the risk for medical problems. Promoting lifestyle and diet changes in order to reach a healthy weight. Summary Body mass index (BMI) is a number that is calculated from a person's weight and height. BMI may help to estimate how much of a person's weight is composed of fat. BMI can help identify those who may be at higher risk for certain medical problems. BMI can be measured using [place] measurements or metric measurements. To interpret your results, your health care provider will use BMI charts to identify whether you are underweight, normal weight, overweight, or obese. This information is not intended to replace advice given to you by your health care provider. Make sure you discuss any questions you have with your health care provider. Document Released: 07/01/2005 Document Revised: 10/02/2018 Document Reviewed: 09/02/2018 [employer] Patient Education 2020 [employer]. 04/18/2022 18:25:57 Vitamin D Deficiency Vitamin D Deficiency Vitamin D deficiency is when your body does not have enough vitamin D. Vitamin D is important to your body for many reasons: It helps the body absorb two important minerals calcium and phosphorus. It plays a role in bone health. It may help to prevent some diseases, such as diabetes and multiple sclerosis. It plays a role in muscle function, including heart function. If vitamin D deficiency is severe, it can cause a condition in which your bones become soft. In adults, this condition is called osteomalacia. In children, this condition is called rickets. What are the causes? This condition may be caused by: Not eating enough foods that contain vitamin D. Not getting enough natural sun exposure. Having certain digestive system diseases that make it difficult for your body to absorb vitamin D. These diseases include Crohn's disease, chronic pancreatitis, and cystic fibrosis. Having a surgery in which a part of the stomach or a part of the small intestine is removed. Having chronic kidney disease or liver disease. What increases the risk? You are more likely to develop this condition if you: Are older. Do not spend much time outdoors. Live in a long-term care facility. Have had broken bones. Have weak or thin bones (osteoporosis). Have a disease or condition that changes how the body absorbs vitamin D. Have dark skin. Take certain medicines, such as steroid medicines or certain seizure medicines. Are overweight or obese. What are the signs or symptoms? In mild cases of vitamin D deficiency, there may not be any symptoms. If the condition is severe, symptoms may include: Bone pain. Muscle pain. Falling often. Broken bones caused by a minor injury. How is this diagnosed? This condition may be diagnosed with blood tests. Imaging tests such as X-rays may also be done to look for changes in the bone. How is this treated? Treatment for this condition may depend on what caused the condition. Treatment options include: Taking vitamin D supplements. Your health care provider will suggest what dose is best for you. Taking a calcium supplement. Your health care provider will suggest what dose is best for you. Follow these instructions at home: Eating and drinking Eat foods that contain vitamin D. Choices include: ?Fortified dairy products, cereals, or juices. Fortified means that vitamin D has been added to the food. Check the label on the package to see if the food is fortified. ?Fatty fish, such as salmon or trout. ?Eggs. ?Oysters. ?Mushrooms. The items listed above may not be a complete list of recommended foods and beverages. Contact a dietitian for more information. General instructions Take medicines and supplements only as told by your health care provider. Get regular, safe exposure to natural sunlight. Do not use a tanning bed. Maintain a healthy weight. Lose weight if needed. Keep all follow-up visits as told by your health care provider. This is important. How is this prevented? You can get vitamin D by: Eating foods that naturally contain vitamin D. Eating or drinking products that have been fortified with vitamin D, such as cereals, juices, and dairy products (including milk). Taking a vitamin D supplement or a multivitamin supplement that contains vitamin D. Being in the sun. Your body naturally makes vitamin D when your skin is exposed to sunlight. Your body changes the sunlight into a form of the vitamin that it can use. Contact a health care provider if: Your symptoms do not go away. You feel nauseous or you vomit. You have fewer bowel movements than usual or are constipated. Summary Vitamin D deficiency is when your body does not have enough vitamin D. Vitamin D is important to your body for good bone health and muscle function, and it may help prevent some diseases. Vitamin D deficiency is primarily treated through supplementation. Your health care provider will suggest what dose is best for you. You can get vitamin D by eating foods that contain vitamin D, by being in the sun, and by taking a vitamin D supplement or a multivitamin supplement that contains vitamin D. This information is not intended to replace advice given to you by your health care provider. Make sure you discuss any questions you have with your health care provider. Document Released: 01/11/2013 Document Revised: 06/28/2019 Document Reviewed: 06/28/2019 [employer] Patient Education 2020 [employer]. 04/18/2022 18:25:50 Managing Anxiety, Adult Managing Anxiety, Adult After being diagnosed with an anxiety disorder, you may be relieved to know why you have felt or behaved a certain way. You may also feel overwhelmed about the treatment ahead and what it will mean for your life. With care and support, you can manage this condition and recover from it. How to manage lifestyle changes Managing stress and anxiety Stress is your body's reaction to life changes and events, both good and bad. Most stress will last just a few hours, but stress can be ongoing and can lead to more than just stress. Although stress can play a major role in anxiety, it is not the same as anxiety. Stress is usually caused by something external, such as a deadline, test, or competition. Stress normally passes after the triggering event has ended. Anxiety is caused by something internal, such as imagining a terrible outcome or worrying that something will go wrong that will devastate you. Anxiety often does not go away even after the triggering event is over, and it can become long-term (chronic) worry. It is important to understand the differences between stress and anxiety and to manage your stress effectively so that it does not lead to an anxious response. Talk with your health care provider or a counselor to learn more about reducing anxiety and stress. He or she may suggest tension reduction techniques, such as: Music therapy. This can include creating or listening to music that you enjoy and that inspires you. Mindfulness-based meditation. This involves being aware of your normal breaths while not trying to control your breathing. It can be done while sitting or walking. Centering prayer. This involves focusing on a word, phrase, or sacred image that means something to you and brings you peace. Deep breathing. To do this, expand your stomach and inhale slowly through your nose. Hold your breath for 3 5 seconds. Then exhale slowly, letting your stomach muscles relax. Self-talk. This involves identifying thought patterns that lead to anxiety reactions and changing those patterns. Muscle relaxation. This involves tensing muscles and then relaxing them. Choose a tension reduction technique that suits your lifestyle and personality. These techniques take time and practice. Set aside 5 15 minutes a day to do them. Therapists can offer counseling and training in these techniques. The training to help with anxiety may be covered by some insurance plans. Other things you can do to manage stress and anxiety include: Keeping a stress/anxiety diary. This can help you learn what triggers your reaction and then learn ways to manage your response. Thinking about how you react to certain situations. You may not be able to control everything, but you can control your response. Making time for activities that help you relax and not feeling guilty about spending your time in this way. Visual imagery and yoga can help you stay calm and relax. Medicines Medicines can help ease symptoms. Medicines for anxiety include: Anti-anxiety drugs. Antidepressants. Medicines are often used as a primary treatment for anxiety disorder. Medicines will be prescribed by a health care provider. When used together, medicines, psychotherapy, and tension reduction techniques may be the most effective treatment. Relationships Relationships can play a big part in helping you recover. Try to spend more time connecting with trusted friends and family members. Consider going to couples counseling, taking family education classes, or going to family therapy. Therapy can help you and others better understand your condition. How to recognize changes in your anxiety Everyone responds differently to treatment for anxiety. Recovery from anxiety happens when symptoms decrease and stop interfering with your daily activities at home or work. This may mean that you will start to: Have better concentration and focus. Worry will interfere less in your daily thinking. Sleep better. Be less irritable. Have more energy. Have improved memory. It is important to recognize when your condition is getting worse. Contact your health care provider if your symptoms interfere with home or work and you feel like your condition is not improving. Follow these instructions at home: Activity Exercise. Most adults should do the following: ?Exercise for at least 150 minutes each week. The exercise should increase your heart rate and make you sweat (moderate-intensity exercise). ?Strengthening exercises at least twice a week. Get the right amount and quality of sleep. Most adults need 7 9 hours of sleep each night. Lifestyle Eat a healthy diet that includes plenty of vegetables, fruits, whole grains, low-fat dairy products, and lean protein. Do not eat a lot of foods that are high in solid fats, added sugars, or salt. Make choices that simplify your life. Do not use any products that contain nicotine or tobacco, such as cigarettes, e-cigarettes, and chewing tobacco. If you need help quitting, ask your health care provider. Avoid caffeine, alcohol, and certain vljh-anx-gavwtlr cold medicines. These may make you feel worse. Ask your pharmacist which medicines to avoid. General instructions Take skof-zpo-cptmuff and prescription medicines only as told by your health care provider. Keep all follow-up visits as told by your health care provider. This is important. Where to find support You can get help and support from these sources: Self-help groups. Online and community organizations. A trusted spiritual leader. Couples counseling. Family education classes. Family therapy. Where to find more information You may find that joining a support group helps you deal with your anxiety. The following sources can help you locate counselors or support groups near you: Mental Health [place]: www.mentalhealthamerica.net Anxiety and Depression Association of [place] (ADAA): www.adaa.org National [place] on Mental Illness (ANTHONY): www.anthony.org Contact a health care provider if you: Have a hard time staying focused or finishing daily tasks. Spend many hours a day feeling worried about everyday life. Become exhausted by worry. Start to have headaches, feel tense, or have nausea. Urinate more than normal. Have diarrhea. Get help right away if you have: A racing heart and shortness of breath. Thoughts of hurting yourself or others. If you ever feel like you may hurt yourself or others, or have thoughts about taking your own life, get help right away. You can go to your nearest emergency department or call: Your local emergency services (911 in the [place] A suicide crisis helpline, such as the National Suicide Prevention Lifeline at . This is open 24 hours a day. Summary Taking steps to learn and use tension reduction techniques can help calm you and help prevent triggering an anxiety reaction. When used together, medicines, psychotherapy, and tension reduction techniques may be the most effective treatment. Family, friends, and partners can play a big part in helping you recover from an anxiety disorder. This information is not intended to replace advice given to you by your health care provider. Make sure you discuss any questions you have with your health care provider. Document Released: 10/14/2017 Document Revised: 03/21/2020 Document Reviewed: 03/21/2020 [employer] Patient Education 2019 [employer]. 04/18/2022 18:25:47 Major Depressive Disorder, Adult Major Depressive Disorder, Adult Major depressive disorder (MDD) is a mental health condition. It may also be called clinical depression or unipolar depression. MDD usually causes feelings of sadness, hopelessness, or helplessness. MDD can also cause physical symptoms. It can interfere with work, school, relationships, and other everyday activities. MDD may be mild, moderate, or severe. It may occur once (single episode major depressive disorder) or it may occur multiple times (recurrent major depressive disorder). What are the causes? The exact cause of this condition is not known. MDD is most likely caused by a combination of things, which may include: Genetic factors. These are traits that are passed along from parent to child. Individual factors. Your personality, your behavior, and the way you handle your thoughts and feelings may contribute to MDD. This includes personality traits and behaviors learned from others. Physical factors, such as: ?Differences in the part of your brain that controls emotion. This part of your brain may be different than it is in people who do not have MDD. ?Long-term (chronic) medical or psychiatric illnesses. Social factors. Traumatic experiences or major life changes may play a role in the development of MDD. What increases the risk? This condition is more likely to develop in women. The following factors may also make you more likely to develop MDD: A family history of depression. Troubled family relationships. Abnormally low levels of certain brain chemicals. Traumatic events in childhood, especially abuse or the loss of a parent. Being under a lot of stress, or long-term stress, especially from upsetting life experiences or losses. A history of: ?Chronic physical illness. ?Other mental health disorders. ?Substance abuse. Poor living conditions. Experiencing social exclusion or discrimination on a regular basis. What are the signs or symptoms? The main symptoms of MDD typically include: Constant depressed or irritable mood. Loss of interest in things and activities. MDD symptoms may also include: Sleeping or eating too much or too little. Unexplained weight change. Fatigue or low energy. Feelings of worthlessness or guilt. Difficulty thinking clearly or making decisions. Thoughts of suicide or of harming others. Physical agitation or weakness. Isolation. Severe cases of MDD may also occur with other symptoms, such as: Delusions or hallucinations, in which you imagine things that are not real (psychotic depression). Low-level depression that lasts at least a year (chronic depression or persistent depressive disorder). Extreme sadness and hopelessness (melancholic depression). Trouble speaking and moving (catatonic depression). How is this diagnosed? This condition may be diagnosed based on: Your symptoms. Your medical history, including your mental health history. This may involve tests to evaluate your mental health. You may be asked questions about your lifestyle, including any drug and alcohol use, and how long you have had symptoms of MDD. A physical exam. Blood tests to rule out other conditions. You must have a depressed mood and at least four other MDD symptoms most of the day, nearly every day in the same 2-week timeframe before your health care provider can confirm a diagnosis of MDD. How is this treated? This condition is usually treated by mental health professionals, such as psychologists, psychiatrists, and clinical social workers. You may need more than one type of treatment. Treatment may include: Psychotherapy. This is also called talk therapy or counseling. Types of psychotherapy include: ?Cognitive behavioral therapy (CBT). This type of therapy teaches you to recognize unhealthy feelings, thoughts, and behaviors, and replace them with positive thoughts and actions. ?Interpersonal therapy (IPT). This helps you to improve the way you relate to and communicate with others. ?Family therapy. This treatment includes members of your family. Medicine to treat anxiety and depression, or to help you control certain emotions and behaviors. Lifestyle changes, such as: ?Limiting alcohol and drug use. ?Exercising regularly. ?Getting plenty of sleep. ?Making healthy eating choices. ?Spending more time outdoors. Treatments involving stimulation of the brain can be used in situations with extremely severe symptoms, or when medicine or other therapies do not work over time. These treatments include electroconvulsive therapy, transcranial magnetic stimulation, and vagal nerve stimulation. Follow these instructions at home: Activity Return to your normal activities as told by your health care provider. Exercise regularly and spend time outdoors as told by your health care provider. General instructions Take ayek-hrg-wjkpvlm and prescription medicines only as told by your health care provider. Do not drink alcohol. If you drink alcohol, limit your alcohol intake to no more than 1 drink a day for non women and 2 drinks a day for men. One drink equals 12 oz of beer, 5 oz of wine, or 1 oz of hard liquor. Alcohol can affect any antidepressant medicines you are taking. Talk to your health care provider about your alcohol use. Eat a healthy diet and get plenty of sleep. Find activities that you enjoy doing, and make time to do them. Consider joining a support group. Your health care provider may be able to recommend a support group. Keep all follow-up visits as told by your health care provider. This is important. Where to find more information National [place] on Mental Illness www.anthony.org [place] National [place] of Mental Health www.[facility].nih.gov National Suicide Prevention Lifeline 5-874-934-EMUL (2443). This is free, 24-hour help. Contact a health care provider if: Your symptoms get worse. You develop new symptoms. Get help right away if: You self-harm. You have serious thoughts about hurting yourself or others. You see, hear, taste, smell, or feel things that are not present (hallucinate). This information is not intended to replace advice given to you by your health care provider. Make sure you discuss any questions you have with your health care provider. Document Released: 02/14/2014 Document Revised: 10/02/2018 Document Reviewed: 04/30/2017 [employer] Patient Education 2020 [employer]. 04/18/2022 18:25:41 Dyslipidemia Dyslipidemia Dyslipidemia is an imbalance of waxy, fat-like substances (lipids) in the blood. The body needs lipids in small amounts. Dyslipidemia often involves a high level of cholesterol or triglycerides, which are types of lipids. Common forms of dyslipidemia include: High levels of LDL cholesterol. LDL is the type of cholesterol that causes fatty deposits (plaques) to build up in the blood vessels that carry blood away from your heart (arteries). Low levels of HDL cholesterol. HDL cholesterol is the type of cholesterol that protects against heart disease. High levels of HDL remove the LDL buildup from arteries. High levels of triglycerides. Triglycerides are a fatty substance in the blood that is linked to a buildup of plaques in the arteries. What are the causes? Primary dyslipidemia is caused by changes (mutations) in genes that are passed down through families (inherited). These mutations cause several types of dyslipidemia. Secondary dyslipidemia is caused by lifestyle choices and diseases that lead to dyslipidemia, such as: Eating a diet that is high in animal fat. Not getting enough exercise. Having diabetes, kidney disease, liver disease, or thyroid disease. Drinking large amounts of alcohol. Using certain medicines. What increases the risk? You are more likely to develop this condition if you are an older man or if you are a woman who has gone through menopause. Other risk factors include: Having a family history of dyslipidemia. Taking certain medicines, including control pills, steroids, some diuretics, and beta-blockers. Smoking cigarettes. Eating a high-fat diet. Having certain medical conditions such as diabetes, polycystic ovary syndrome (PCOS), kidney disease, liver disease, or hypothyroidism. Not exercising regularly. Being overweight or obese with too much belly fat. What are the signs or symptoms? In most cases, dyslipidemia does not usually cause any symptoms. In severe cases, very high lipid levels can cause: Fatty bumps under the skin (xanthomas). White or bledsoe ring around the black center (pupil) of the eye. Very high triglyceride levels can cause inflammation of the pancreas (pancreatitis). How is this diagnosed? Your health care provider may diagnose dyslipidemia based on a routine blood test (fasting blood test). Because most people do not have symptoms of the condition, this blood testing (lipid profile) is done on adults age 20 and older and is repeated every 5 years. This test checks: Total cholesterol. This measures the total amount of cholesterol in your blood, including LDL cholesterol, HDL cholesterol, and triglycerides. A healthy number is below 200. LDL cholesterol. The target number for LDL cholesterol is different for each person, depending on individual risk factors. Ask your health care provider what your LDL cholesterol should be. HDL cholesterol. An HDL level of 60 or higher is best because it helps to protect against heart disease. A number below 40 for men or below 50 for women increases the risk for heart disease. Triglycerides. A healthy triglyceride number is below 150. If your lipid profile is abnormal, your health care provider may do other blood tests. How is this treated? Treatment depends on the type of dyslipidemia that you have and your other risk factors for heart disease and stroke. Your health care provider will have a target range for your lipid levels based on this information. For many people, this condition may be treated by lifestyle changes, such as diet and exercise. Your health care provider may recommend that you: Get regular exercise. Make changes to your diet. Quit smoking if you smoke. If diet changes and exercise do not help you reach your goals, your health care provider may also prescribe medicine to lower lipids. The most commonly prescribed type of medicine lowers your LDL cholesterol (statin drug). If you have a high triglyceride level, your provider may prescribe another type of drug (fibrate) or an omega-3 fish oil supplement, or both. Follow these instructions at home: Eating and drinking Follow instructions from your health care provider or dietitian about eating or drinking restrictions. Eat a healthy diet as told by your health care provider. This can help you reach and maintain a healthy weight, lower your LDL cholesterol, and raise your HDL cholesterol. This may include: ?Limiting your calories, if you are overweight. ?Eating more fruits, vegetables, whole grains, fish, and lean meats. ?Limiting saturated fat, trans fat, and cholesterol. If you drink alcohol: ?Limit how much you use. ?Be aware of how much alcohol is in your drink. In the [place] one drink equals one 12 oz bottle of beer (355 mL), one 5 oz glass of wine (148 mL), or one 1 oz glass of hard liquor (44 mL). Do not drink alcohol if: ?Your health care provider tells you not to drink. ?You are , may be , or are planning to become . Activity Get regular exercise. Start an exercise and strength training program as told by your health care provider. Ask your health care provider what activities are safe for you. Your health care provider may recommend: ?30 minutes of aerobic activity 4 6 days a week. Brisk walking is an example of aerobic activity. ?Strength training 2 days a week. General instructions Do not use any products that contain nicotine or tobacco, such as cigarettes, e-cigarettes, and chewing tobacco. If you need help quitting, ask your health care provider. Take tmex-wjp-sewzgxv and prescription medicines only as told by your health care provider. This includes supplements. Keep all follow-up visits as told by your health care provider. Contact a health care provider if: You are: ?Having trouble sticking to your exercise or diet plan. ?Struggling to quit smoking or control your use of alcohol. Summary Dyslipidemia often involves a high level of cholesterol or triglycerides, which are types of lipids. Treatment depends on the type of dyslipidemia that you have and your other risk factors for heart disease and stroke. For many people, treatment starts with lifestyle changes, such as diet and exercise. Your health care provider may prescribe medicine to lower lipids. This information is not intended to replace advice given to you by your health care provider. Make sure you discuss any questions you have with your health care provider. Document Released: 10/25/2014 Document Revised: 06/14/2019 Document Reviewed: 05/21/2019 [employer] Patient Education 2020 [employer]. 04/18/2022 18:25:39 DASH Eating Plan DASH Eating Plan DASH stands for Dietary Approaches to Stop Hypertension. The DASH eating plan is a healthy eating plan that has been shown to reduce high blood pressure (hypertension). It may also reduce your risk for type 2 diabetes, heart disease, and stroke. The DASH eating plan may also help with weight loss. What are tips for following this plan? General guidelines Avoid eating more than 2,300 mg (milligrams) of salt (sodium) a day. If you have hypertension, you may need to reduce your sodium intake to 1,500 mg a day. Limit alcohol intake to no more than 1 drink a day for non women and 2 drinks a day for men. One drink equals 12 oz of beer, 5 oz of wine, or 1 oz of hard liquor. Work with your health care provider to maintain a healthy body weight or to lose weight. Ask what an ideal weight is for you. Get at least 30 minutes of exercise that causes your heart to beat faster (aerobic exercise) most days of the week. Activities may include walking, swimming, or biking. Work with your health care provider or diet and animal nutritionist (dietitian) to adjust your eating plan to your individual calorie needs. Reading food labels Check food labels for the amount of sodium per serving. Choose foods with less than 5 percent of the Daily Value of sodium. Generally, foods with less than 300 mg of sodium per serving fit into this eating plan. To find whole grains, look for the word whole as the first word in the ingredient list. Shopping Buy products labeled as low-sodium or no salt added. Buy fresh foods. Avoid canned foods and premade or frozen meals. Cooking Avoid adding salt when cooking. Use salt-free seasonings or herbs instead of table salt or sea salt. Check with your health care provider or pharmacist before using salt substitutes. Do not ly foods. Cook foods using healthy methods such as baking, boiling, grilling, and broiling instead. Cook with heart-healthy oils, such as olive, canola, soybean, or sunflower oil. Meal planning Eat a balanced diet that includes: ?5 or more servings of fruits and vegetables each day. At each meal, try to fill half of your plate with fruits and vegetables. ?Up to 6 8 servings of whole grains each day. ?Less than 6 oz of lean meat, poultry, or fish each day. A 3-oz serving of meat is about the same size as a deck of cards. One egg equals 1 oz. ?2 servings of low-fat dairy each day. ?A serving of nuts, seeds, or beans 5 times each week. ?Heart-healthy fats. Healthy fats called [place]-3 fatty acids are found in foods such as flaxseeds and coldwater fish, like sardines, salmon, and mackerel. Limit how much you eat of the following: ?Canned or prepackaged foods. ?Food that is high in trans fat, such as fried foods. ?Food that is high in saturated fat, such as fatty meat. ?Sweets, desserts, sugary drinks, and other foods with added sugar. ?Full-fat dairy products. Do not salt foods before eating. Try to eat at least 2 vegetarian meals each week. Eat more home-cooked food and less restaurant, buffet, and fast food. When eating at a restaurant, ask that your food be prepared with less salt or no salt, if possible. What foods are recommended? The items listed may not be a complete list. Talk with your dietitian about what dietary choices are best for you. Grains Whole-grain or whole-wheat bread. Whole-grain or whole-wheat pasta. Brown rice. Oatmeal. Quinoa. Bulgur. Whole-grain and low-sodium cereals. Melissa bread. Low-fat, low-sodium crackers. Whole-wheat flour tortillas. Vegetables Fresh or frozen vegetables (raw, steamed, roasted, or grilled). Low-sodium or reduced-sodium tomato and vegetable juice. Low-sodium or reduced-sodium tomato sauce and tomato paste. Low-sodium or reduced-sodium canned vegetables. Fruits All fresh, dried, or frozen fruit. Canned fruit in natural juice (without added sugar). Meat and other protein foods Skinless chicken or turkey. Ground chicken or turkey. Pork with fat trimmed off. Fish and seafood. Egg whites. Dried beans, peas, or lentils. Unsalted nuts, nut butters, and seeds. Unsalted canned beans. Lean cuts of beef with fat trimmed off. Low-sodium, lean deli meat. Dairy Low-fat (1%) or fat-free (skim) milk. Fat-free, low-fat, or reduced-fat cheeses. Nonfat, low-sodium ricotta or cottage cheese. Low-fat or nonfat yogurt. Low-fat, low-sodium cheese. Fats and oils Soft margarine without trans fats. Vegetable oil. Low-fat, reduced-fat, or light mayonnaise and salad dressings (reduced-sodium). Canola, safflower, olive, soybean, and sunflower oils. Avocado. Seasoning and other foods Herbs. Spices. Seasoning mixes without salt. Unsalted popcorn and pretzels. Fat-free sweets. What foods are not recommended? The items listed may not be a complete list. Talk with your dietitian about what dietary choices are best for you. Grains Baked goods made with fat, such as croissants, muffins, or some breads. Dry pasta or rice meal packs. Vegetables Creamed or fried vegetables. Vegetables in a cheese sauce. Regular canned vegetables (not low-sodium or reduced-sodium). Regular canned tomato sauce and paste (not low-sodium or reduced-sodium). Regular tomato and vegetable juice (not low-sodium or reduced-sodium). Pickles. Olives. Fruits Canned fruit in a light or heavy syrup. Fried fruit. Fruit in cream or butter sauce. Meat and other protein foods Fatty cuts of meat. Ribs. Fried meat. Jaime. Sausage. Bologna and other processed lunch meats. Salami. Fatback. Hotdogs. Bratwurst. Salted nuts and seeds. Canned beans with added salt. Canned or smoked fish. Whole eggs or egg yolks. Chicken or turkey with skin. Dairy Whole or 2% milk, cream, and jaqz-myg-zadj. Whole or full-fat cream cheese. Whole-fat or sweetened yogurt. Full-fat cheese. Nondairy creamers. Whipped toppings. Processed cheese and cheese spreads. Fats and oils Butter. Stick margarine. Lard. Shortening. Ghee. Jaime fat. Tropical oils, such as coconut, palm kernel, or palm oil. Seasoning and other foods Salted popcorn and pretzels. Onion salt, garlic salt, seasoned salt, table salt, and sea salt. Worcestershire sauce. Tartar sauce. Barbecue sauce. Teriyaki sauce. Soy sauce, including reduced-sodium. Steak sauce. Canned and packaged gravies. Fish sauce. Oyster sauce. Cocktail sauce. Horseradish that you find on the shelf. Ketchup. Mustard. Meat flavorings and tenderizers. Bouillon cubes. Hot sauce and Tabasco sauce. Premade or packaged marinades. Premade or packaged taco seasonings. Relishes. Regular salad dressings. Where to find more information: National Heart, Lung, and Blood [place]: www.nhlbi.nih.gov [place] [employer] Association: www.heart.org Summary The DASH eating plan is a healthy eating plan that has been shown to reduce high blood pressure (hypertension). It may also reduce your risk for type 2 diabetes, heart disease, and stroke. With the DASH eating plan, you should limit salt (sodium) intake to 2,300 mg a day. If you have hypertension, you may need to reduce your sodium intake to 1,500 mg a day. When on the DASH eating plan, aim to eat more fresh fruits and vegetables, whole grains, lean proteins, low-fat dairy, and heart-healthy fats. Work with your health care provider or diet and animal nutritionist (dietitian) to adjust your eating plan to your individual calorie needs. This information is not intended to replace advice given to you by your health care provider. Make sure you discuss any questions you have with your health care provider. Document Released: 10/08/2012 Document Revised: 10/02/2018 Document Reviewed: 10/13/2017 [employer] Patient Education 2020 [employer]. Follow Up Care 04/17/2022 13:33:25 With:Martha Hathaway CNP Address: When:6 months [facility] 04-18-2022 Evaluation + Plan note Future Scheduled TestsVitamin D 25 Hydroxy 04/18/22 [facility] Junior Evaluation + Plan note Future Appointments Appointment Date:09/06/2022 01:00:00 PM Scheduled Provider: Location:[facility] Appointment Type: Medicare Wellness Subsequent Future Scheduled TestsBD Bone Density DEXA 10/03/21MA Mamm Screen w/CAD if perf and 3D Jai 10/03/21 [facility] Evaluation + Plan note Future Appointments Appointment Date:05/01/2022 02:20:00 PM Scheduled Provider:Leopoldo Sanchez DO Location:[facility] Appointment Type: Open Appointment Date:09/06/2022 01:00:00 PM Scheduled Provider: Location:[facility] Appointment Type: Medicare Wellness Subsequent Future Scheduled TestsVitamin D 25 Hydroxy 04/18/22BD Bone Density DEXA 10/03/21MA Mamm Screen w/CAD if perf and 3D Jai 10/03/21 [facility] Evaluation + Plan note Future Appointments Appointment Date:09/17/2023 01:00:00 PM Scheduled Provider: Location:[facility] Appointment Type:FM Medicare Wellness Subsequent [facility] Evaluation + Plan note Future Appointments Appointment Date:11/10/2023 01:15:00 PM Scheduled Provider: Location[facility] Appointment Type:OT Eval (FT) Appointment Date:12/10/2023 04:00:00 PM Scheduled Provider:Beatrice Ingram Location:[facility] Appointment Type: New Patient - Adult Appointment Date:07/13/2024 02:30:00 PM Scheduled Provider: Location:[facility] Appointment Type: Medicare Wellness Subsequent [facility] Hospital course Narrative No data available for this section [facility] Hospital Discharge instructions No data available for this section [facility] Progress note No data available for this section [facility] Summary Purpose Family History No Family History Records FoundNo Family History Records Found No data available for this section No Family History Records FoundNo Family History Records Found No data available for this section No Family History Records Found Advance Directives No Advanced Directives Records FoundNo Advanced Directives Records FoundNo Advanced Directives Records FoundNo Advanced Directives Records FoundNo Advanced Directives Records Found Additional Source Comments INFORMATION SOURCE (unrecogn ized section and content) DATE CREATED AUTHOR 04/29/2018 [facility] DATE CREATED AUTHOR AUTHOR'S ORGANIZ ATION 05/12/2022 [facility] DATE CREATED AUTHOR AUTHOR'S ORGANIZ ATION 10/04/2023 [facility] DATE CREATED AUTHOR AUTHOR'S ORGANIZ ATION 10/06/2023 Nadiya herrera DATE CREATED AUTHOR AUTHOR'S ORGANIZ ATION 11/01/2023 [facility] Care Team (unrecognized sect ion and content) Personnel Name: Martha Hathaway CNP Address: [address] [place] [address] [place] Name: Nia Wolff Personnel Name: Martha Hathaway CNP Address: Address: [address] [place] [address] [place] Name: Nia Wolff Personnel Name: Martha Hathaway CNP Address: Address: [address] [place] [address] [place] Name: Nia Wolff Personnel Name: Miguel Atkins MD Address: Address: [address] [place] [address] Name: Nia Wolff FOR RECORDS PERTAINING TO PATIENTS WHO ARE OR HAVE BEEN ENROLLED IN A CHEMICAL DEPENDENCY/SUBSTANCEABUSE PROGRAM, SOME INFORMATION MAY BE OMITTED. This clinical summary was aggregated from multiple sources. Caution should be exercised in using it in the provision of clinical care. This summary normalizes information from multiple sources, and as a consequence, information in this document may materially change the coding, format and clinical context of patient data. In addition, data may be omitted in some cases. CLINICAL DECISIONS SHOULD BE BASED ON THE PRIMARY CLINICAL RECORDS. [facility] [employer] provides no warranty or guarantee of the accuracy or completeness of information in this document.
== END 2023-11-10 10:39 | disposition home or self-care (01) ==
LOC: RAD 10:38
PROVIDERS: Visit Provider Orthopaedic Surgery
DX: S52.571D Other intraarticular fracture of lower end of right radius, subsequent encounter for closed fracture with routine healing (principal)
CPT/HCPCS: 73100

== ENCOUNTER 2023-12-15 08:28 | Outpatient (OUT) | payer OTHER, SELFPAY ==
--- NOTE | 2023-12-15 | XR_ITS ---
The [address] [address] Patient Name: MELBA ZAPATA MRN: [id number] date: 1955 Sex: F Assigned Patient Location: [facility] Current Patient Location: [facility] Accession/Order Number: [id number] Exam Date: 12/15/2023 08:44 Report Date: 12/15/2023 09:05 At the request of: DENIA DIETRICH Procedure: XR wrist RT min 3V PROCEDURE: XR wrist RT min 3V COMPARISON: 10/13/2023 HISTORY: RIGHT WRIST FINDINGS: BONES:Stable distal radius fracture with internal fixation utilizing a plate and multiple screws. Remote ulnar styloid process fracture. Degenerative changes most significant along the medial carpus and first carpal metacarpal joint SOFT TISSUES:Negative. No visible soft tissue swelling. EFFUSION:None visible. OTHER: Negative. XR/XR wrist RT min 3V IMPRESSION: Stable distal radius fracture with internal fixation Electronically authenticated by: ROSHNI ABBOTT Date: 12/15/2023 09:05
--- OUTSIDE RECORDS SUMMARY | 2023-12-15 08:31 | XMS_ITS | CCD ---
Author Name Unknown Address [address] [place] [id number] Organization [facility] Care Team Providers Care Chief Operating Engineer Name Role Phone RUBENS SERNA Unavailable Unavailable CHELSEY CAMRYN Rodo Unavailable Unavailable Martha Hathaway Primary Care Physician [phone] Nia Wolff Unavailable Unavailable DR DENIA JOHNS Consulting Unavailable MIGUEL COLEMAN Attending Unavailable MIGUEL COLEMAN Admitting Unavailable MIGUEL COLEMAN Consulting Unavailable DARIO AVILA Attending Unavailable DENIA DIETRICH Referring Unavailable DENIA DIETRICH Admitting Unavailable DENIA DIETRICH Attending Unavailable Miguel Atkins Primary Care Physician [phone] Beatrice Barnes Primary Care Physician [phone] Rai Gordillo Attending Unavailable Miguel Atkins Attending Unavailable Beatrice Barnes Attending Unavailable Miguel Atkins Attending Unavailable Beatrice Barnes Attending Unavailable Miguel Atkins Attending Unavailable Ricki VAZQUEZ Attending Unavailable DENIA DIETRICH Referring Unavailable DENIA DIETRICH Attending Unavailable Som Willis Attending Unavailable Allergies Allergy Classification Reported Allergen(s) Allergy Type Date of Onset Reaction(s) Facility (8 sources) Contrast media; Translations: [CONTRAST DYE] Propensity to adverse reactions to drug (disorder) 7 Swelling (finding) [facility] Repository (10 sources) Penicillins; Translations: [PENICILLINS] Propensity to adverse reactions to drug (disorder) 7 H/O: blackout (context-depend ent category) [facility] (7 sources) adhesives; Translations: [adhesives] Allergy to substance redness [facility] (1 source) Iodine (And Iodine Containting Drugs) Drug allergy (disorder) 6 [facility] Repository (1 source) IODINATED CONTRAST MEDIA; Translations: [IODINATED CONTRAST MEDIA] Propensity to adverse reactions to drug (disorder) 7 [facility] Repository Medications Current Medications Medication Drug Class(es) Dates Sig (Normalized) Sig (Original) amLODIPine 5 mg oral tablet (1 source) Dihydropyridine Calcium Channel Cyrus Start: 05-17-2020 take 1 tablet by mouth once daily Norvasc 5 mg Tab 5 mg = 1 tab(s), Oral, Daily, # 90 cap(s), Refills(s) 3, Pharmacy: [facility], 170.1, cm, 12/28/19 11:34:00 EST, Height/Length Measured, 106, kg, 10/06/19 11:07:00 EST, Weight Measured Start Date: 05/17/20 Status: Ordered 12 hr buPROPion hydrochloride 150 mg extended release oral tablet (1 source) Aminoketone Start: 12-10-2023 take 1 tablet by mouth twice daily Wellbutrin SR 150 mg Tab-ER 150 mg = 1 tab(s), Oral, BID, # 180 tab(s), Refills(s) 0, Pharmacy: [facility], 162.2, cm, 12/10/23 16:44:00 EST, Height/Length Dosing, 100.6, kg, 12/10/23 16:44:00 EST, Weight Dosing Start Date: 12/10/23 Status: Ordered cholecalciferol 0.05 mg oral capsule (1 source) Vitamin D Start: 04-18-2022 End: 08-16-2022 take 1 capsule by mouth once daily at mealtime cholecalciferol 2000 intl units oral capsule 50 mcg = 1 cap(s), Oral, Daily, with food., X 60 day(s), # 90 cap(s), Refills(s) 1, Pharmacy: [facility], 163.8, cm, 04/18/22 15:45:00 EDT, Height/Length [...] day(s), # 14 cap(s), Refills(s) 0, Pharmacy: [facility], 167, cm, 08/21/23 14:00:00 EDT, Height/Length Dosing, 100, kg, 08/21/23 14:00:00 EDT, Weight Dosing Start Date: 08/21/23 Stop Date: 08/28/23 Status: Ordered DULoxetine 60 mg delayed release oral capsule (5 sources) Serotonin and Norepinephrine Reuptake Inhibitor Start: 12-10-2023 take 1 capsule by mouth once daily duloxetine 60 mg oral delayed release capsule 60 mg = 1 cap(s), Oral, Daily, # 90 cap(s), Refills(s) 0, Pharmacy: [facility], 162.2, cm, 12/10/23 16:44:00 EST, Height/Length Dosing, 100.6, kg, 12/10/23 16:44:00 EST, Weight Dosing Start Date: 12/10/23 Status: Ordered Start: 08-12-2023 take 1 capsule by [facility] once daily duloxetine 60 mg oral delayed release capsule 60 mg = 1 cap(s), Oral, Daily, # 90 cap(s), Refills(s) 0, Pharmacy: [facility], 163, cm, 10/21/22 13:43:00 EST, Height/Length Dosing, 98.4, kg, 10/21/22 13:43:00 EST, Weight Dosing Start Date: 08/12/23 Status: Ordered Start: 04-18-2022 take 1 capsule by [facility] once daily DULoxetine 60 mg Cap-EC 60 mg = 1 cap(s), Oral, Daily, # 90 cap(s), Refills(s) 3, Pharmacy: [facility], 163.8, cm, 04/18/22 15:45:00 EDT, Height/Length Dosing, 93.7, kg, 04/18/22 15:45:00 EDT, Weight Dosing Start Date: 04/18/22 Status: Ordered Start: 05-18-2020 take 1 capsule by [facility] once daily DULoxetine 40 mg oral delayed release capsule 40 mg, Oral, Daily, # 90 cap(s), Refills(s) 1, Pharmacy: [facility], 170.1, cm, 05/18/20 17:03:00 EDT, Height/Length Measured, 112.3, kg, 05/18/20 17:35:00 EDT, Weight Measured Start Date: 05/18/20 Status: Ordered DULoxetine 60 mg Cap-EC (2 sources) Start: 05-02-2022 take 1 capsule by mouth once daily DULoxetine 60 mg Cap-EC 60 mg = 1 cap(s), Oral, Daily, # 90 cap(s), Refills(s) 3, Pharmacy: [facility] #[id number], 163.8, cm, 04/18/22 15:45:00 EDT, Height/Length Dosing, 93.7, kg, 04/18/22 15:45:00 EDT, Weight Dosing Start Date: 05/02/22 Status: Ordered Start: 08-30-2021 take 1 capsule by [facility] once daily DULoxetine 60 mg Cap-EC 60 mg = 1 cap(s), Oral, Daily, # 30 cap(s), Refills(s) 6, Pharmacy: [facility], 170, cm, 08/30/21 14:36:00 EDT, Height/Length Dosing, 89.2, kg, 08/30/21 14:36:00 EDT, Weight Dosing Start Date: 08/30/21 Status: Ordered fluticasone propionate 0.05 mg/actuat metered dose nasal spray (2 sources) Corticosteroid Start: 10-21-2022 take 1 spray(s) nasal route twice daily Flonase 0.05 mg/inh [place] 1 spray(s), Nasal, BID, 16 gram, Refill(s) 0, each nostril, [facility], 163, cm, 10/21/22 13:43:00 EST, Height/Length Dosing, 98.4, kg, 10/21/22 13:43:00 EST, Weight Dosing Start Date: 10/21/22 Status: Ordered Start: 10-26-2020 fluticasone 0. 05 mg/inh Nasal [place] 2 spray(s), Nasal, Daily Congestion, 16 gram, Refill(s) 1, each nostril, [facility], 170, cm, 10/26/20 7:12:00 EST, Height/Length Dosing, 102, kg, 10/26/20 7:12:00 EST, Weight Dosing Start Date: 10/26/20 Status: Ordered fluticasone 0.05 mg/inh Nasal [place] (1 source) Start: 10-26-2020 fluticasone 0. 05 mg/inh Nasal [place] 2 spray(s), Nasal, Daily Congestion, 16 gram, Refill(s) 1, each nostril, [facility], 170, cm, 10/26/20 7:12:00 EST, Height/Length Dosing, 102, kg, 10/26/20 7:12:00 EST, Weight Dosing Start Date: 10/26/20 Status: Ordered Mucinex DM 30 mg-600 mg Tab-ER (1 source) Start: 10-21-2022 End: 10-24-2022 Mucinex DM 30 mg-600 mg Tab-ER 1 tab(s), Oral, q12hr Congestion for 3 day(s), 6 tab(s), Refill(s) 0, [facility], 163, cm, 10/21/22 13:43:00 EST, Height/Length Dosing, 98.4, kg, 10/21/22 13:43:00 EST, Weight Dosing Start Date: 10/21/22 Stop Date: 10/24/22 Status: Ordered ondansetron 4 mg oral tablet (1 source) Serotonin-3 Receptor Antagonist Start: 12-10-2023 take 1 tablet by mouth every eight hours as needed for nausea Zofran 4 mg Tab 4 mg = 1 tab(s), Oral, q8hr, PRN Nausea/Vomiting, # 12 tab(s), Refills(s) 0, Pharmacy: [facility], 162.2, cm, 12/10/23 16:44:00 EST, Height/Length Dosing, 100.6, kg, 12/10/23 16:44:00 EST, Weight Dosing Start Date: 12/10/23 Status: Ordered Completed/Discontinued Medications Medication Drug Class(es) Dates Sig (Normalized) Sig (Original) Blood pressure cuff (3 sources) Start: 08-30-2021 Blood pressure cuff Blood pressure cuff, See Instructions, 1 EA, 0, Please dispense 1 blood pressure cuff., [facility], Supply, 170, cm, 08/30/21 14:36:00 EDT, Height/Length Dosing, 89.2, kg, 08/30/21 14:36:00 EDT, Weight Dosing Start Date: 08/30/21 Status: Ordered Problems Active Problems Problem Classification Problem Date Documented Date Episodic/Chronic Abdominal pain (6 sources) Flank pain 08-24-2019 Episodic Anxiety disorders (7 sources) Anxiety; Translations: [Anxiety disorder] Onset: 2 05-25-2019 Chronic Asthma (6 sources) Asthma 12-14-2018 Chronic Biliary tract disease (2 sources) Cholelithiasis without obstruction; Translations: [Calculus of gallbladder without cholecystitis without obstruction] Onset: 4 Episodic Calculus of urinary tract (7 sources) Kidney stone; Translations: [Calculus of kidney] Onset: 4 09-21-2019 Episodic Diabetes mellitus without complication (8 sources) Hyperglycemia; Translations: [Hyperglycemia, unspecified] Onset: 3 05-25-2019 Episodic Diseases of mouth; excluding dental (1 source) Sialoadenitis; Translations: [Sialoadenitis, unspecified] Onset: 3 Episodic Disorders of lipid metabolism (8 sources) Mixed hyperlipidemia; Translations: [Mixed hyperlipidemia] Onset: 2 07-25-2020 Chronic E Codes: Fall (1 source) Fall; Translations: [Unspecified fall, initial encounter] Onset: 3 Episodic Essential hypertension (9 sources) Benign essential hypertension; Translations: [Essential hypertension] Onset: 2 05-25-2019 Chronic Fracture of upper limb (5 sources) Other intraarticular fracture of lower end of right radius, initial encounter for closed fracture; Translations: [Fracture of carpal bone] Onset: 3 Episodic Comment on above: R distal radius fx Genitourinary symptoms and ill-defined conditions (6 sources) Urge incontinence of urine 04-28-2019 Chronic Genitourinary symptoms and ill-defined conditions (12 sources) Nocturia; Translations: [Urgent desire to urinate] 04-28-2019 Episodic Headache; including migraine (2 sources) Headache; Translations: [Headache, unspecified] Onset: 4 Episodic Hypertension with complications and secondary hypertension (2 sources) Hypertensive heart disease without heart failure; Translations: [Hypertensive heart disease without heart failure] Onset: 3 Chronic Immunizations and screening for infectious disease (1 source) Vaccination given; Translations: [Encounter for immunization] Onset: 3 Episodic Malaise and fatigue (2 sources) Fatigue; Translations: [Other fatigue] Onset: 4 Episodic Mood disorders (9 sources) Depressive disorder; Translations: [Major depressive disorder] Onset: 2 05-25-2019 Chronic Comment on above: Added per Anali freed response, per outpatient CDI policy. Nutritional deficiencies (7 sources) Vitamin D deficiency; Translations: [Vitamin D deficiency, unspecified] Onset: 2 05-25-2019 Chronic Osteoarthritis (6 sources) Osteoarthritis of hip 08-09-2019 Chronic Other bone disease and musculoskeletal deformities (6 sources) Osteopenia 06-03-2019 Episodic Other bone disease and musculoskeletal deformities (2 sources) Disorder of bone; Translations: [Other specified disorders of bone density and structure, unspecified site] Onset: 3 Episodic Other connective tissue disease (4 sources) Pain in right foot; Translations: [PAIN IN RIGHT FOOT] Onset: 2 Episodic Other diseases of kidney and ureters (6 sources) Hydronephrosis 09-21-2019 Episodic Other injuries and conditions due to external causes (1 source) Personal history of (healed) traumatic fracture; Translations: [Personal history of (healed) traumatic fracture] Onset: 3 Episodic Other non-traumatic joint disorders (6 sources) Hip pain 05-25-2019 Episodic Other nutritional; endocrine; and metabolic disorders (7 sources) Body mass index 30+ - obesity 06-22-2020 Chronic Other nutritional; endocrine; and metabolic disorders (1 source) Obese class I; Translations: [Body mass index (BMI) 34.0-34.9, adult] Onset: 2 Chronic Other nutritional; endocrine; and metabolic disorders (11 sources) Obesity; Translations: [Obesity, unspecified] Onset: 2 Chronic Other nutritional; endocrine; and metabolic disorders (3 sources) Obese class II; Translations: [Body mass index (BMI) 37.0-37.9, adult] Onset: 2 Chronic Other nutritional; endocrine; and metabolic disorders (1 source) Morbid obesity; Translations: [Morbid (severe) obesity due to excess calories] Onset: 4 Chronic Other nutritional; endocrine; and metabolic disorders (1 source) Severe obesity 12-10-2023 Chronic Comment on above: Added per Anali freed response, per outpatient [facility]I policy. Other screening for suspected conditions (not mental disorders or infectious disease) (3 sources) Abnormal electrocardiogram [ECG] [EKG]; Translations: [Encounter for other screening for malignant neoplasm of breast] Onset: 3 Episodic Other skin disorders (6 sources) Mucous membrane dryness 09-24-2021 Episodic Other upper respiratory disease (1 source) Nasal congestion; Translations: [Nasal congestion] Onset: 2 Episodic Other upper respiratory disease (4 sources) Congestion of nasal sinus 10-21-2022 Episodic Other upper respiratory infections (1 source) Chronic sinusitis; Translations: [Chronic sinusitis, unspecified] Onset: 3 Chronic Residual codes; unclassified (6 sources) Tobacco user 08-30-2021 Episodic Residual codes; unclassified (1 source) Patient encounter status; Translations: [Other specified health status] Onset: 2 Episodic Residual codes; unclassified (1 source) Other specified postprocedural states; Translations: [Other specified postprocedural states] Onset: 3 Episodic Residual codes; unclassified (1 source) Family history of cancer; Translations: [Family history of malignant neoplasm of other organs or systems] Onset: 4 Episodic Residual codes; unclassified (1 source) Family history of malignant neoplasm of thyroid 12-10-2023 Episodic Screening and history of mental health and substance abuse codes (1 source) Tobacco use and exposure - finding 12-10-2023 Chronic Screening and history of mental health and substance abuse codes (2 sources) H/O: Disorder; Translations: [Personal history of nicotine dependence] Onset: 3 Episodic Spondylosis; intervertebral disc disorders; other back problems (8 sources) Displacement of cervical intervertebral disc; Translations: [Cervical spondylosis] Onset: 4 05-25-2019 Chronic Spondylosis; intervertebral disc disorders; other back problems (5 sources) Neck pain; Translations: [Cervicalgia] Onset: 2 Episodic Substance-related disorders (14 sources) Smoker; Translations: [Nicotine dependence] Onset: 2 05-18-2020 Chronic Comment on above: Added secondary to d ocumentation in Social History. Systemic lupus erythematosus and connective tissue disorders (6 sources) Systemic sclerosis 03-22-2019 Chronic Comment on above: inactive Unclassified (6 sources) Clinical finding absent 08-30-2021 Unclassified (2 sources) Patient encounter status 12-10-2023 Past or Other Problems Problem Classification Problem Date Documented Da te Episodic/Chronic Unclassified (1 source) Exposure to 2019 novel coronavirus; Translations: [Contact with and (suspected) exposure to COVID19] Results Test Name Value Interpretation Reference Range Facil ity Ambulatory Visit Summaryon 0 12-10-2023 Ambulatory Visit Summary MELBA TEJADA :1955 Visit Date:12/10/2023 Ambulatory Visit Instructions Your Diagnosis Wellness examination Fracture of right wrist with routine healing Fatigue FHx: thyroid cancer Major depressive disorder, recurrent, mild Benign essential HTN Hyperlipidemia Hyperglycemia Osteopenia Kidney stones Gall stones Worsening headaches Cervical spine degeneration Class 3 severe obesity with serious comorbidity in adult Personal history of tobacco use Screening for breast cancer Adult BMI 38.0-38.9 kg/sq m Anxiety Depression Other obesity Your Care Team Attending Physician - Beatrice Ingram Primary Care Physician - Beatrice Ingram This Is Your Medications List buPROPion (Wellbutrin SR 150 mg Tab-ER) duloxetine (duloxetine 60 mg oral delayed release capsule) ondansetron (Zofran 4 mg Tab) Procedures Performed Open reduction of fracture (09/2023), Cataract extraction and insertion of intraocular lens [...] of bladder, TUBAL LIGATION. Discharge Vitals Temperature (Temporal Artery) 36.5 ?C Heart Rate (Peripheral) 72 Respiratory Rate 18 Blood Pressure 136/80 Height 162.2 cm Height 64 in Weight 100.6 kg Weight 221.32 lb BMI 38.24 What to do next Scheduled Follow-Up Appointments 2023 1:45 PM EST Where: Occupational Therapy Friday 2:15 PM EST Where: Occupational Therapy Friday 2:00 PM EST Where: [facility] Occupational Therapy 2023 8:15 AM EST Where: Occupational Therapy Friday 2:30 PM EDT Where: [facility] Invalid Interpretation Code Wellness examination, Not Required, Print Label By Order Location\.br\ Comprehensive Metabolic Panel, Blood, Routine collect, 12/10/23, Order for future visit, Lab Collect, Benign essential HTN [facility] Patient Educationon 12-10-19 Patient Education Immunology Fatigue If you have fatigue, you feel tired all the time and have a lack of energy or a lack of motivation. Fatigue may make it difficult to start or complete tasks because of exhaustion. Occasional or mild fatigue is often a normal response to activity or life. However, long-term (chronic) or extreme fatigue may be a symptom of a medical condition such as: ? Depression. ? Not having enough red blood cells or hemoglobin in the blood (anemia). ? A problem with a small gland located in the lower front part of the neck (thyroid disorder). ? Rheumatologic conditions. These are problems related to the body's defense system (immune system). ? Infections, especially certain viral infections. Fatigue can also lead to negative health outcomes over time. Follow these instructions at home: Medicines ? Take nojh-[id number] and prescription medicines only as told by your health care provider. ? Take a multivitamin if told by your health care provider. ? Do not use herbal or dietary supplements unless they are approved by your health care provider. Eating and drinking ? Avoid heavy meals in the evening. ? Eat a well-balanced diet, which includes lean proteins, whole grains, plenty of fruits and vegetables, and low-fat dairy products. ? Avoid eating or drinking too many products with caffeine in them. ? Avoid alcohol. ? Drink enough fluid to keep your urine pale yellow. Activity ? Exercise regularly, as told by your health care provider. ? Use or practice techniques to help you relax, such as yoga, montrell chi, meditation, or massage therapy. Lifestyle ? Change situations that cause you stress. Try to keep your work and personal schedules in balance. ? Do not use recreational or illegal drugs. General instructions ? Monitor your fatigue for any changes. ? Go to bed and get up at the same time every day. ? Avoid fatigue by pacing yourself during the day and getting enough sleep at night. ? Maintain a healthy weight. Contact a health care provider if: ? Your fatigue does not get better. ? You have a fever. ? You suddenly lose or gain weight. ? You have headaches. ? You have trouble falling asleep or sleeping through the night. ? You feel angry, guilty, anxious, or sad. ? You have swelling in your legs or another part of your body. Get help right away if: ? You feel confused, feel like you might faint, or faint. ? Your vision is blurry or you have a severe headache. ? You have severe pain in your abdomen, your back, or the area between your waist and hips (pelvis). ? You have chest pain, shortness of breath, or an irregular or fast heartbeat. ? You are unable to urinate, or you urinate less than normal. ? You have abnormal bleeding from the rectum, nose, lungs, nipples, or, if you are female, the vagina. ? You vomit blood. ? You have thoughts about hurting yourself or others. These symptoms may be an emergency. Get help right away. Call 911. ? Do not wait to see if the symptoms will go away. ? Do not drive yourself to the hospital. Get help right away if you feel like you may hurt yourself or others, or have thoughts about taking your own life. Go to your nearest emergency room or: ? Call 911. ? Call the National Suicide Prevention Lifeline at or 546. This is open 24 hours a day. ? Text the Crisis Text Line at 865760. Summary ? If you have fatigue, you feel tired all the time and have a lack of energy or a lack of motivation. ? Fatigue may make it difficult to start or complete tasks because of exhaustion. ? Long-term (chronic) or extreme fatigue may be a symptom of a medical condition. ? Exercise regularly, as told by your health care provider. ? Change situations that cause you stress. Try to keep your work and personal schedules in balance. This information is not intended to replace advice given to you by your health care provider. Make sure you discuss any questions you have with your health care provider. Document Revised: 08/12/2022 Document Reviewed: 08/12/2022 [employer] Patient Education ? 2022 [employer]. Mental and Behavioral Health Major Depressive Disorder, Adult Major depressive disorder (MDD) is a mental health condition. It may also be called clinical depression or unipolar depression. MDD causes symptoms of sadness, hopelessness, and loss of interest in things. These symptoms last most of the day, almost every day, for 2 weeks. MDD can also cause physical symptoms. It can interfere with relationships and with everyday activities, such as work, school, and activities that are usually pleasant. MDD may be mild, moderate, or severe. It may be single-episode MDD, which happens once, or recurrent MDD, which may occur multiple times. What are the causes? The exact cause of this condition is not known. MDD is most likely caused by a combination of things, which may include: ? You (more content not included)... Normal [facility] Pre-Visit Planningon 024 Pre-Visit Planning From: Yolette Laughlin RN To: Beatrice Barnes; Sent: 12/09/2023 10:39:17 EST Subject: Pre-Visit Planning Due Date/Time: 12/09/2023 10:39:00 EST Caller Name: MELBA TEJADA; Caller Number: H Miah Barron, *Based on your response below, can you please update the chronic problem list and address during this visit if appropriate?* During a pre-visit planning chart review, I noted the following documentation in the medical record indicates that this patient had a BMI of 38.03 on 10/30/2023. The National [employer] defines obesity as morbid if the patient demonstrates a BMI of over 40, or a BMI of 35 or more and at least one weight-related comorbid condition, such as diabetes or hypertension. Examples of weight-related comorbidities include diabetes, heart disease, stroke, hypertension, and arthritis. Current problem list: Benign essential HTN, Hyperlipidemia, OA of hip, Osteopenia Based on your medical judgment, can you further clarify the following diagnosis that correlates with the BMI listed above if the current BMI is still 35 or over? - Morbid obesity (please also include additional diagnosis to reflect current BMI) - Class 3 severe obesity with serious comorbidity in adult (please also include additional diagnosis to reflect current BMI) - Other (please specify): I can update the problem list with your specified response if you would like. In responding to this request, please exercise your independent professional judgment. The fact that a question is asked does not imply that any particular answer is desired or expected. If you have any questions, please feel free to contact me at extension [phone]. Thank you! SIMONA Pardo, RN, CCM, CCDS, CCDS-O From: Beatrice Ingram To: Yolette Laughlin RN; Sent: 12/09/2023 22:05:42 EST Subject: RE: Pre-Visit Planning Caller Name: MELBA TEJADA; Caller Number: H - Class 3 severe obesity BMI 38 with serious comorbidity in adult with HTN. ??? (please also include additional diagnosis to reflect current BMI) Normal [address] [facility] Pre-Visit Planning From: Yolette Laughlin RN To: Beatrice Ingram; Sent: 12/09/2023 10:36:38 EST Subject: Pre-Visit Planning Due Date/Time: 12/09/2023 10:36:00 EST Caller Name: MELBA TEJADA; Caller Number: H Miah Barron, During a pre-visit planning chart review, I noted the following documentation in the medical record: 09/24/2021 office note-2. Depression (F32.9: Major depressive disorder, single episode, unspecified) Much improved. Continue Cymbalta at 60 mg QD. Call office if new or worsening symptoms develop or concerns arise. Reviewed when to seek emergency department evaluation, in the event suicidal ideations were to develop. Patient verbalizes understanding and agrees with the plan. 04/18/2022 office note-Depression - Cymbalta 60 mg QD. Doing well since her divorce and since starting this new job. Sleeping: a lot better. PHQ-9 score 4. LISBETH-7 score: 4. 10/30/2023 office note-2. Depression (F32.A: Depression, unspecified) PHQ-9 completed with score 6. Taking Cymbalta daily as ordered, states effectiveness of medication. Denies concerns, voices no suicidal ideations. Encouraged to review signs and symptoms to monitor for and report to PCP. Will continue to follow up as needed. Medications managed with office visits, OPIOD risk with OARRS completed with PCP. Medications- Cymbalta Based on your medical judgment, can you please clarify which, if any, of the following conditions are present? ? Major Depressive Disorder, Recurrent ? Major depressive disorder, recurrent, mild ? Major depressive disorder, recurrent, moderate ? Major depressive disorder, recurrent, unspecified ? Major depressive disorder, recurrent, in partial remission ? Major depressive disorder, recurrent, in full remission ? Major depressive disorder, recurrent, in remission unspecified ? Other (Please specify if able to) I can update the problem list with your specified response if you would like. In responding to this request, please exercise your independent professional judgement. The fact that a question is asked does not imply that any particular answer is desired or expected. If you have any questions, please feel free to contact me at extension [phone]. Thank you! SIMONA Pardo, RN, CCM, CCDS, CCDS-O From: Beatrice Ingram To: Truman MANE, Yolette; Sent: 12/09/2023 22:04:13 EST Subject: RE: Pre-Visit Planning Caller Name: MELBA TEJADA; Caller Number: H Major depressive disorder, recurrent, mild Normal [address] [facility] OT - Home Exercise Programon 12-04-2023 OT - Home Exercise Program [id number]#1.00TIFF Normal [facility] OT - Assessmentson OT - Assessments [id number]#1.00TIFF Normal [facility] OT - Consentson 11-14-2023 OT - Consents [id number]#1.00TIFF Normal [facility] OT - Home Exercise Programon 11-14-2023 OT - Home Exercise Program [id number]#1.00TIFF Normal [facility] OT - Orderson 11-12-2023 OT - Orders [id number]#1.00TIFF Normal [facility] Consent for Treatmenton Consent for Treatment [id number]#1.00TIFF Normal [facility] OT - Workers Compon 11-10-19 24 OT - Workers Comp [id number]#1.00TIFF Normal [facility] Workers Comp Formson 024 Workers Comp Forms [id number]#1.00TIFF Normal [facility] Consent for Flu Vaccineon Consent for Flu Vaccine [id number]#1.00TIFF [facility] Family Medicine Office/Clini c Noteon 10-31-2023 Family [...] of clutter to prevent tripping and/or falling. [place] Advance Directives reviewed. Packet received in the [...] causes many disease (more content not included)... [facility] Comment on above: Result Comment: Electronically Signed By : Aakash EL MD\.br\Date and Time Signed: 10/31/23 12:38 EST\.br\Electronically Co-Signed By: Tiffanie Yi LPN\.br\Date and Time Co-Signed: 10/30/23 16:16 EST [place] 10-31-2023 Screens [id number]#1.00TIFF [facility] Ambulatory Visit Summaryon 1 12-31-2022 Ambulatory Visit [...] Appointments Friday 1:15 PM EST With: Where: Occupational Therapy Friday 4:00 PM EST With: Beatrice Ingram Where: [facility] Normal [address] [place] [address]- \.br\ Medications\.br \ What How Much When [...] a fast heartbeat, dizziness, or weakness), call and get the person to the nearest hospital.\.br\ For other signs that concern you, call your health care provider.\.br\ Adverse reactions should be reported to the Vaccine Adverse Event Reporting System (VAERS). Your health care provider will usually file this report, or you can do it yourself. Visit the VAERS website at www.[facility]. ov or call . VAERS is only for reporting reactions, and VAERS staff do not give medical advice.\.br\ 6. How can I learn more?\.br\ ? \.br\ Ask your health care provider.\.br\ ? \.br\ Call your local or state health department.\.br \ ? \.br\ Contact the Centers for Disease Control and Prevention (CDC):\.br\ ? \.br\ Call (0-481-IIA-INFO ) or\.br\ ? \.br\ Visit CDC's website [...] provider.\.br\ Document Revised: 09/18/2022 Document Reviewed: 07/22/2022 ElseTowi Patient Education ? 2022 [employer].br\ Understanding Your Risk for Falls\.br\ Each [...] insomnia, or edema, as well as tyler [facility] Patient Educationon 10-30- 23 Patient Education Caregiving Understanding Your Risk [...] Community-Based Fall Prevention Programs: www.cdc.gov ? National [employer] on Aging: www.erich.nih.gov Contact a health care [...] provider. Document Revised: 05/23/2021 Document Reviewed: 05/23/2021 [employer] Patient Education ? 2022 [employer] Infectious Disease Pneumococcal Polysaccharide Vaccine (PPSV23): What You Need to Know 1. Why get vaccinated? Pneumococcal polysaccharide vaccine (PPSV23) can prevent pneumococcal disease. Pneumococcal disease refers to any illness caused by pneumococcal bacteria. These bacteria can cause many types of illnesses, including pneumonia, which is an infection of the lungs. Pneumococca (more content not included)... Normal [facility] [place] LESS THAN 1 HOURon 2022 [place] LESS THAN 1 HOUR Radiology exam is complete. No Radiologist dictation. Please follow up with ordering provider. Final result Normal [facility] Office Visiton 10-02-2023 Follow-up visit [id number] Diana Tejada 1955 F Date Provider Department Center 10/02/2023 [id number], SHELMITH [facility] C[facility] Family History Problem Relation Age of Onset Atrial fibrillation Mother Diabetes Mother Other Mother Transient ischemic attack Father Stroke Maternal Grandmother Family Status - Relation Status Age at Mother Father Maternal Grandmother Level of Service:02621 MT OFFICE/OUTPATIENT NEW MODERATE MDM 45-59 MINUTES Normal [facility] CT Head or Brain w/o Contras [...] Signature): 09/10/2023 12:58 pm Signed by: Merrick oTrrez MD Transcribed by: PRIMO Technologist: TERRY [facility] CT Spine Cervical w/o Contra ston 09-10-2023 CT Spine Cervical w/o Contrast Exam [...] Merrick Torrez MD Transcribed by: PRIMO Technologist: [facility] Consent for Treatmenton Consent for Treatment [id number]#1.00TIFF [facility] Discharge Instructionson Discharge Instructions [id number]#1.00TIFF [facility] ED Clinical Summaryon 2022 ED Clinical Summary [place] [id number] ED Clinical Summary Person Information Name: MELBA TEJADA/[facility] Age: 68 Years : 1955 Sex: Female Language: Angolan PCP: Martha Hathaway CNP Marital Status: Phone: [phone] Visit Id: Visit Reason: Knee pain-swelling; Wrist [...] 14:28:48 09/10/2023 14:28:48 09/10/2023 14:28:48 AD[address]ESS: [address] [id number] PHYS DOC NOTES: MEDICAL INFORMATION: Prescriptions Given: New Medications [facility] [place], [place] [id number], [phone] acetaminophen-oxycodone (acetaminophen-oxycodone 325 mg-5 mg Tab) 1 Tablets By Mouth every 6 hours as needed for pain for 3 Days. Refills: 0. Medications to Continue with No Changes Other Medications duloxetine (duloxetine 60 mg oral delayed release capsule) 1 Capsules By Mouth every day. Refills: 0. PATIENT EDUCATION INFORMATION: Instructions: Contusion; Cervical Sprain; Radial Fracture Follow up: With: Address: When: Rony Wray [address] [place] [address] [phone] Business (1) In 3 days 09/13/2023 Comments: Follow-up with Dr. Wray for further evaluation of your distal radius fracture. With: Address: When: [place] [facility] [facility] [phone] In 3 days 09/13/2023 With: Address: When: Martha Hathaway In 3 days 09/13/2023 Comments: Follow-up with your primary care provider in 3 to 5 days. If symptoms worsen, do not improve, or new symptoms arise please report back to emergency department for further evaluation. DIAGNOSIS: Cervical strain; Closed head injury; Contusion of left knee; Fall; Right radial fracture Normal [facility] ED Note-Physicianon 09-10-20 ED Note-Physician Basic Information Time Seen: Phil BLEDSOE, Sushil Ha 09/10/2023 11:49 Chief Complaint patient c/o right wrist pain, left knee pain and neck pain after tripping and falling this afternoon. denies LOC or use of blood thinners. - [facility] [employer] History of Present Illness A [...] and Complexity of Problems Differential Diagnosis: [] [facility] Data External documents reviewed: [] My EKG [...] for 3 day(s), 12 tab(s), Refill(s) 0, [facility], 167, cm, 09/10/23 11:47:00 EST, Height/Length [...] Rony Wray In 3 days 09/13/2023 EST [address] [place], [place] [address] (1) Additional Instructions: Follow-up with Dr. Dockery (more content not included)... [facility] Comment on above: Result Comment: Electronically Signed By : Sushil Villarreal PA-C\.br\Date and Time Signed: 09/10/23 14:46 EST\.br\Electronically Co-Signed By: Som Willis M.D.\.br\Date and Time Co-Signed: 09/10/23 14:51 EST ED [...] or lying down. General instructions ? Take yleu-dge-kcxwlhe and prescription medicines only as told by [...] compression, and elevation. You may be given qryl-efe-cjqbqqo medicines for pain. ? Contact a health [...] provider. Document Revised: 09/03/2022 Document Reviewed: 08/15/2022 ElseTowi Patient Education ? 2022 [employer]. Cervical Sprain A cervical sprain is [...] doing p (more content not included)... Normal [facility] ED Patient Summaryon 023 ED Patient Summary [place] [id number] Patient Discharge Instructions Person Information Name: MELBA TEJADA Age: 68 Years Arrival Date: 09/10/2023 11:36:20 Discharge Diagnosis: Cervical strain; Closed head injury; Contusion of left knee; Fall; Right radial fracture Primary Care Physician: Martha Hathaway CNP Provider Information Primary Provider: Lazaro Grady, Som [place] [employer] [place] Hand:None The exam and treatment you received in the Emergency Department were for an urgent problem and are not intended as complete care. It is important that you follow up with a doctor, nurse practitioner, or physician?s administrative office assistant for ongoing care. If your symptoms [...] Follow-up Instructions: With: Address: When: Rony Wray [address] [place] [address] [facility] (2) In 3 days 09/13/2023 Comments: Follow-up with Dr. Wray for further evaluation of your distal radius fracture. With: Address: When: [place] [facility] [facility] [phone] In 3 days 09/13/2023 With: Address: When: [...] opioids can be used to help relieve vupoubxe-gm-jwsnpf pain and are often prescribed following a [...] Safely dispose of (more content not included)... [facility] ED Traumaon 09-10-2023 ED Trauma [id number]#1.00TIFF [facility] Workers Comp Formson 023 Workers Comp Forms [id number]#1.00TIFF [facility] XR Knee Complete 4+ Views Le [...] mGy = 0 DAP = [address] [facility] XR Wrist 3+ Views Righton XR Wrist [...] mGy = 0 DAP = 0 Normal [facility] Medicine Office/Clini c Noteon 08-21-2023 Family Medicine [...] with voice recognition software. Occasional wrong-word or ?jcqbn-l-iasm? substitutions may have occurred due to the [...] day(s), # 14 cap(s), Refills(s) 0, Pharmacy: [facility], 167, cm, 08/21/23 14:00:00 EDT, Height/Length [...] she notice (more content not included)... Normal [facility] Comment on above: Result Comment: Electronically Signed By : Duy BLEDSOE, Rai Ortiz\.br\Date and Time Signed: 08/21/23 15:22 EDT Patient Educationon 08-21-20 Patient Education Infectious Disease Parotitis Parotitis means [...] these instructions at home: Medicines ? Take bjdw-zxi-varlwru and prescription medicines only as told by [...] Take good care of your mouth: ? [place] your teeth at least two times a [...] provider. Document Revised: 03/01/2022 Document Reviewed: 03/01/2022 [employer] Patient Education ? 2022 [employer]. Sinus Infection, Adult A sinus infection, also [...] Medical Center Reference Laboratory Testing Ordered By: LivelyFeed DomainUser on 11-23-2021 SARS-CoV-2 (COVID-19) RNA JUNAID+probe Ql (Resp) Not detected Invalid Interpretation Code Not Detected [facility] [employer] Comment on above: Result Comment: This nucleic acid amplif ication test was developed and its performance characteristics determined by [facility]. Nucleic acid amplification tests include RT-PCR and [...] detected) result in this assay. Performed at: [facility] [id number] PhD Zhang Padron 06-17-2017 CNOV Office Visit (MAUROSFT) -MELBA TEJADA ([id number]) 1955 FDate Time Provider Department06/17/17 12:50 PM RUBENS SERNA During your visit today, we recorded the following information about you: Pulse Respiration Blood pressure Weight 83/minute 20/minute 135/79 99.8 kg Height 1.676 Evangelina Serna MD 06/17/2017 2:02 PM [facility] SURGERY OUTPATIENT CONSULTSERVICE DATE: 06/17/2017PCP: Camryn Barbosa, [id number] [facility] [id number] PROVIDER:Brea Layton requested for an opinion regarding the evaluation and treatment ofMelba Tejada. My final impression and recommendations will be communicatedback to the requesting physician by way of the shared medical record or lettervia US mail.Sunita Tejada is a 62 year old female presenting alone. 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[employer].CHIEF COMPLAINT: Right arm weaknessHISTORY [...] Ratio: RIGHT ARMDERMATOMAL DISTRIBUTION:Right: C6, C7 and Q4KUFCPDPLXG STATUS: AT LEAST 1 -2 MILESSTANDING UPRIGHT: [...] Wt 99.8 kg (220 lb) BMI 35.51 kg/c4CZQLNKA APPEARANCE: Well nourished, well developed, and no [...] PM SignedCERVICAL DISC HERNIATION/STENOSISReferring Provider: CAMRYN BARBOSA [[id number]]Allergies As of Date: 06/17/2017 Noted Allergy ReactionIODINE [...] Shoulder impingement, right [M75.41]Order(s):XR CERVICAL OBLIQUES ONLY [[id number]] Order #: [id number] FUTURE XR CERVICAL 3VIEW/FLEX/EXT [[id number]] Order #: [id number] FUTUREPrescriptions as of 06/17/2017 Sig: BUPROPION HCL [...] to improve.Follow-up and Disposition History RecordedEncounter Number: [id number] Status:Closed by RUBENS ESRNA MD on 06/17/17 [facility] PROGRESSon 06-17-2017 PROGRESS HNO ID: [id number] thor: Rubens SernaService: (none)Author Type: PhysicianType: Progress NotesFiled: 06/17/2017 2:02 PMNote Text:SPINE SURGERY OUTPATIENT CONSULTSERVICE DATE: 06/17/2017PCP: Camryn Barbosa, [id number] [facility] [id number] PROVIDER:Brea Layton requested for an opinion regarding the evaluation and treatmentof Melba Tejada. My final impression and recommendations will becommunicated back to the requesting physician by way of the shared medicalrecord or letter via US mail.Sunita Tejada is a 62 year old female presenting alone. 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 He then referred the patient [facility] further assessment.PAIN EVALUATION 06/17/2017 Pain Score: 8 Pain Location: Arm-Right Description: Numbness Duration Amount of Time: 4 Duration Units: Months Frequency: Continuous Intervention: Medication;RepositionPain Radiation: Right shoulder into the right hand involving all digitsAggravating Factors: reaching, pulling, lifting, usage of the right arm,doing hair and make upAlleviating Factors: nothingPain Ratio: RIGHT ARMDERMATOMAL DISTRIBUTION:Right: C6, C7 and W3WDRDAFZEVW STATUS: AT LEAST 1 -2 MILESSTANDING UPRIGHT: [...] education: Number of children: 3Occupational HistoryOccupation Employer [employer] History Main Topics Smoking status: [...] Wt 99.8 kg (220 lb) BMI 35.51 kg/o4OBSXCQY APPEARANCE: Well nourished, well developed, and no [...] if she relapsed in her cigarette smoking.Melba A Chiswati has a surgical indication but she would like to give itsome more consideration before proceeding with surgery.1. Imaging: Cervical X-Ray2. Follow up: PRNAfter the patient left, I called Dr. Ilya Kelley'office to notify ofthe shoulder impingement status.SIGNATURE: Rubens Serna MD PATIENT NAME: Melba BrizuelaTE: June 17, 2017 : 12:56 PM PAGER: Normal [facility] Vital Signs Date Time Vital Sign Value Performing Clinician Facility 12-10-2023 16:27-0500 Blood Pressure Location Beatrice Barnes [facility] 12-10-2023 16:27-0500 Body temperature 97.7 [degF] Beatrice Barnes [facility] 12-10-2023 16:27-0500 Diastolic blood pressure 80 mm[Hg] Beatrice Barnes [facility] 12-10-2023 16:27-0500 Heart rate 72 /min Beatrice Barnes [facility] 12-10-2023 16:27-0500 Respiratory rate 18 /min Beatrice Barnes [facility] 12-10-2023 16:27-0500 SaO2% (BldA) [Mass fraction] 94 % Beatrice Barnes [facility] 12-10-2023 16:27-0500 Systolic blood pressure 136 mm[Hg] Beatrice Barnes [facility] 10-30-2023 14:19-0500 Blood Pressure Location Miguel Tejadameltroy [facility] 10-30-2023 14:19-0500 Body temperature 98.42 [degF] Miguel Gudimella [facility] 10-30-2023 14:19-0500 Diastolic blood pressure 86 mm[Hg] Miguel Gudimella [facility] 10-30-2023 14:19-0500 Heart rate 74 /min Miguel Gudimella [facility] 10-30-2023 14:19-0500 SaO2% (BldA) [Mass fraction] 95 % Miguel Gudimella [facility] 10-30-2023 14:19-0500 Systolic blood pressure 130 mm[Hg] Miguel Gudimella [facility] 08-21-2023 13:55-0400 Blood Pressure Location Rai Gordillo [facility] 08-21-2023 13:55-0400 Body temperature 97.7 [degF] Rai Gordillo [facility] 08-21-2023 13:55-0400 Diastolic blood pressure 78 mm[Hg] Rai Udy [facility] 08-21-2023 13:55-0400 Heart rate 48 /min Raiflorinda Gordillo [facility] 08-21-2023 13:55-0400 SaO2% (BldA) [Mass fraction] 95 % Raiflorinda Gordillo [facility] 08-21-2023 13:55-0400 Systolic blood pressure 124 mm[Hg] Rai Duy [facility] 10-21-2022 13:40-0500 Blood Pressure Location Miguel Gudimella [facility] 10-21-2022 13:40-0500 Body temperature 97.52 [degF] Miguel Gudimella [facility] 10-21-2022 13:40-0500 Diastolic blood pressure 78 mm[Hg] Miguel Gudimella [facility] 10-21-2022 13:40-0500 Heart rate 74 /min Miguel Gudimella [facility] 10-21-2022 13:40-0500 Respiratory rate 18 /min Miguel Gudimella [facility] 10-21-2022 13:40-0500 SaO2% (BldA) [Mass fraction] 97 % Miguel Gudimella [facility] 10-21-2022 13:40-0500 Systolic blood pressure 128 mm[Hg] Miguel Gudimella [facility] 04-18-2022 15:36-0400 Blood Pressure Location Martha Arellanoell [facility] 04-18-2022 15:36-0400 Body temperature 98.24 [degF] Martha Arellanoell [facility] 04-18-2022 15:36-0400 Diastolic blood pressure 80 mm[Hg] Martha Hathaway [facility] 04-18-2022 15:36-0400 Heart rate 81 /min Martha Hathaway [facility] 04-18-2022 15:36-0400 SaO2% (BldA) [Mass fraction] 97 % Martha Hathaway [facility] 04-18-2022 15:36-0400 Systolic blood pressure 136 mm[Hg] Martha Hathaway [facility] Encounters Encounter Date Encounter Type Care Provider Facility Start: 07-13-2024 ambulatory Miguel Gudimella [facility] Start: 01-21-2024 ambulatory Beatrice Barnes Facil [facility] Start: 12-10-2023 End: 12-11-2023 ambulatory Beatrice Barnes Facility:[facility] Start: 12-10-2023 End: 12-10-2023 Patient encounter procedure Beatrice Barnes [facility] Start: 12-10-2023 End: 12-10-2023 Well adult monitoring check done Beatrice Barnes [facility] Start: 11-10-2023 ambulatory DENIA DIETRICH [facility]ilit y[facility] Start: 10-30-2023 End: 10-31-2023 ambulatory Miguel Gudimella Facility:[facility] Start: 10-30-2023 End: 10-30-2023 Encounter for general adult medical examination with abnormal findings Miguel Gudimella [facility] Start: 10-30-2023 End: 10-30-2023 Patient encounter procedure Miguel Gudimella [facility] Start: 10-22-2023 ambulatory Miguel Gudimella Facilit y:[facility] Gons[facility] Start: 10-03-2023 End: 10-03-2023 ambulatory DENIA Villagomez [facility] Start: 10-02-2023 End: 10-02-2023 ambulatory [facility] Start: 09-30-2023 ambulatory [facility] Start: 09-10-2023 End: 09-11-2023 ambulatory Ricki OBERON Facility[facility] Start: 09-10-2023 End: 09-10-2023 Emergency department patient visit Smo Willis Facility[facility] Start: 08-21-2023 End: 08-22-2023 ambulatory Rai Gordillo Facility:[facility] Start: 08-21-2023 End: 08-21-2023 Patient encounter procedure Rai Gordillo [facility] Start: 10-21-2022 End: 10-21-2022 Patient encounter procedure Miguel Atkins [facility] [place] Start: 05-08-2022 End: 05-09-[address] DENIA JOHNS Facility: Start: 04-18-2022 End: 04-18-2022 Patient encounter procedure Martha Hathaway [facility] Start: 11-23-2021 End: 2022 Patient encounter procedure Martha Hathaway [facility] Start: 06-17-2017 End: 06-17-2017 Ambulatory RUBENS SERNA [facility] Procedures Date Procedure Procedure Detail Performing Clinician Start: 09-03-2023 Open reduction of fracture Beatrice Barnes Start: 10-12-2019 Cataract extraction and insertion of intraocular lens Martha Hathaway Comment on above: RIGHT Start: 09-28-2019 Cataract extraction and insertion of intraocular lens Martha Hathaway Comment on above: Left Start: 08-31-2019 Total [...] Start: 04-13-2018 Left hip steroid injection 8 Martha Hathaway Comment on above: 10% relief Start: [...] of anterior tongue lesion with repair Martha Hathaway Appendectomy Martha Hathaway Colonoscopy 12 Martha valdez Comment on above: Dr. Ruvalcaba May 2009 Cystopexy Martha Hathaway Comment on above: 1997 Excision of cyst of ovary Aquiles Hathaway Lithotripsy Martha Hathaway Other bilateral liga tion and division of fallopian tubes Martha Hathaway Immunizations Immunization Date Immunization Notes Care Provider Fa kt 10-30-2023 pneumococcal polysaccharide vaccine, 23 valent Miguel Atkins [facility] 08-12-2023 influenza virus vaccine, unspecified formulation Rai Gordillo [facility] 10-02-2021 pneumococcal conjuga te vaccine, 13 valent Martha Hathaway [facility] 10-02-2021 influenza, high dose seasonal, preservative-free [facility] 02-02-2021 COVID-19, mRNA, LNP- S, PF, 30 mcg/0.3 mL dose; Translations: [Pfizer-BioNTech COVID-19 Vaccine] [facility] Comment on above: Reason for Medicatio n: Prophylaxis 01-12-2021 COVID-19, mRNA, LNP- S, PF, 30 mcg/0.3 mL dose; Translations: [Pfizer-BioNTech COVID-19 Vaccine] [facility] Comment on above: Reason for Medicatio n: Prophylaxis 08-10-2020 influenza virus vaccine, unspecified formulation [facility] 09-03-2018 influenza virus vaccine, unspecified formulation [facility] NEGATED: Highlighted row has not occurred!10-21-2022 influenza virus vaccine, unspecified formulation Miguel Atkins [facility] [place] Payers Date Payer Category Payer Unknown [id number] 2023 Worker's Compensation [id number] 2023 Worker's Compensation [id number] 1959 Medicare [id number] 1959 Unknown [id number] 1955 Unknown [id number] 2.16.84 [id number] 1955 Unknown [id number] 2.16.8 [id number] 1955 Unknown [id number] 2.16.8 [id number] 1955 Unknown [id number] 2.16.8 [id number] 1955 Unknown [id number] 2.16.8 [id number] 1955 Unknown [id number] 2.16.8 [id number] 1955 Unknown [id number] 2.16.8 [id number] 1955 Unknown [id number] 2.16.8 [id number] 1955 Unknown [id number] 2.16.8 [id number] 1955 Unknown [id number] 2.16.8 [id number] Social History Date Type Detail Facility Start: 10-02-2021 End: 12-10-2023 Tobacco smoking status Heavy tobacco smoker (finding) [facility] Comment on above: smokes 1/2 PPD smokes .5 PPD, start ed at age age 22 Tobacco smoking status Never [facility] Comment on above: smokes 1/2 PPD smokes .5 PPD, start ed at age age 22 Sex Assigned At Female [facility] Medical Equipment Procedure Code Equipment Code Equipment Origin al Text Equipment Identifier Dates FDA Start: 03-22-2019 FDA Start: 09-28-2019 {[id number] FDA Start: 10-12-2019 CYSTOSCOPY RETRO GRADE STENT INSERTION Fred Bonilla MD, Luis Valdez 03/22/19 Unknown Vagina FDA Start: 03-22-2019 CATARACT EXTRACT ION W/ INTRAOCULAR LENS Zahler DO, Og 09/28/19 Non Biological Eye L FDA Start: 09-28-2019 CYSTOSCOPY RETRO GRADE STENT INSERTION Luis Ibarra Jr., MD 03/22/19 Unknown Vagina FDA Start: 03-22-2019 CATARACT EXTRACT ION W/ INTRAOCULAR LENS Zahler DO, Og 09/28/19 Non Biological Eye L FDA Start: 09-28-2019 CYSTOSCOPY RETRO GRADE STENT INSERTION Luis Ibarra Jr., MD 03/22/19 Unknown Vagina FDA Start: 03-22-2019 CATARACT EXTRACT ION W/ INTRAOCULAR LENS Zahler DO, Og 09/28/19 Non Biological Eye L FDA Start: 09-28-2019 CYSTOSCOPY RETRO GRADE STENT INSERTION Luis Ibarra Jr., MD 03/22/19 Unknown Vagina FDA Start: 03-22-2019 CATARACT EXTRACT ION W/ INTRAOCULAR LENS Zahler DO, Og 09/28/19 Non Biological Eye L FDA Start: 09-28-2019 CYSTOSCOPY RETRO GRADE STENT INSERTION Luis Ibarra Jr., MD 03/22/19 Unknown Vagina FDA Start: 03-22-2019 CATARACT EXTRACT ION W/ INTRAOCULAR LENS Zahler DO, Og 09/28/19 Non Biological Eye L FDA Start: 09-28-2019 Functional Status Date Assessment Result Facility 12-10-2023 Functional Status N/A [facility] 10-30-2023 Functional Status N/A [facility] 08-21-2023 Functional Status N/A [facility] 10-21-2022 Functional Status N/A [facility] [place] 04-18-2022 Functional Status N/A [facility] Clinical Notes 04-18-2022 to 12-10-2023 LaboratoryRadiologyLaboratoryRadiologyLaboratoryRadiology Note Date & Type Note Facility 12-10-2023 Hospital Discharge instructions Patient Education 12/10/2023 17:55:59 Health Maintenance After Age 65 Health Maintenance After Age 65 After age 65, you are at a higher risk for certain long-term diseases and infections as well as injuries from falls. Falls are a major cause of broken bones and head injuries in people who are older than age 65. Getting regular preventive care can help to keep you healthy and well. Preventive care includes getting regular testing and making lifestyle changes as recommended by your health care provider. Talk with your health care provider about: Which screenings and tests you should have. A screening is a test that checks for a disease when you have no symptoms. A diet and exercise plan that is right for you. What should I know about screenings and tests to prevent falls? Screening and testing are the best ways to find a health problem early. Early diagnosis and treatment give you the best chance of managing medical conditions that are common after age 65. Certain conditions and lifestyle choices may make you more likely to have a fall. Your health care provider may recommend: Regular vision checks. Poor vision and conditions such as cataracts can make you more likely to have a fall. If you wear glasses, make sure to get your prescription updated if your vision changes. Medicine review. Work with your health care provider to regularly review all of the medicines you are taking, including bauq-zlo-kpjmoom medicines. Ask your health care provider about any side effects that may make you more likely to have a fall. Tell your health care provider if any medicines that you take make you feel dizzy or sleepy. Strength and balance checks. Your health care provider may recommend certain tests to check your strength and balance while standing, walking, or changing positions. Foot health exam. Foot pain and numbness, as well as not wearing proper footwear, can make you more likely to have a fall. Screenings, including: ?Osteoporosis screening. Osteoporosis is a condition that causes the bones to get weaker and break more easily. ?Blood pressure screening. Blood pressure changes and medicines to control blood pressure can make you feel dizzy. ?Depression screening. You may be more likely to have a fall if you have a fear of falling, feel depressed, or feel unable to do activities that you used to do. ?Alcohol use screening. Using too much alcohol can affect your balance and may make you more likely to have a fall. Follow these instructions at home: Lifestyle Do not drink alcohol if: ?Your health care provider tells you not to drink. If you drink alcohol: ?Limit how much you have to: ?0 1 drink a day for women. ?0 2 drinks a day for men. ?Know how much alcohol is in your drink. In the [place] one drink equals one 12 oz bottle of beer (355 mL), one 5 oz glass of wine (148 mL), or one 1 oz glass of hard liquor (44 mL). Do not use any products that contain nicotine or tobacco. These products include cigarettes, chewing tobacco, and vaping devices, such as e-cigarettes. If you need help quitting, ask your health care provider. Activity Follow a regular exercise program to stay fit. This will help you maintain your balance. Ask your health care provider what types of exercise are appropriate for you. If you need a cane or walker, use it as recommended by your health care provider. Wear supportive shoes that have nonskid soles. Safety Remove any tripping hazards, such as rugs, cords, and clutter. Install safety equipment such as grab bars in bathrooms and safety rails on stairs. Keep rooms and walkways well-lit. General instructions Talk with your health care provider about your risks for falling. Tell your health care provider if: ?You fall. Be sure to tell your health care provider about all falls, even ones that seem minor. ?You feel dizzy, tiredness (fatigue), or off-balance. Take qypj-jey-lhjimkv and prescription medicines only as told by your health care provider. These include supplements. Eat a healthy diet and maintain a healthy weight. A healthy diet includes low-fat dairy products, low-fat (lean) meats, and fiber from whole grains, beans, and lots of fruits and vegetables. Stay current with your vaccines. Schedule regular health, dental, and eye exams. Summary Having a healthy lifestyle and getting preventive care can help to protect your health and wellness after age 65. Screening and testing are the best way to find a health problem early and help you avoid having a fall. Early diagnosis and treatment give you the best chance for managing medical conditions that are more common for people who are older than age 65. Falls are a major cause of broken bones and head injuries in people who are older than age 65. Take precautions to prevent a fall at home. Work with your health care provider to learn what changes you can make to improve your health and wellness and to prevent falls. This information is not intended to replace advice given to you by your health care provider. Make sure you discuss any questions you have with your health care provider. Document Revised: 03/11/2022 Document Reviewed: 03/11/2022 [employer] Patient Education 2022 [email or web address]. 12/10/2023 17:55:54 Osteopenia Osteopenia Osteopenia is a loss of thickness (density) inside the bones. Another name for osteopenia is low bone mass. Mild osteopenia is a normal part of aging. It is not a disease, and it does not cause symptoms. However, if you have osteopenia and continue to lose bone mass, you could develop a condition that causes the bones to become thin and break more easily (osteoporosis). Osteoporosis can cause you to lose some height, have back pain, and have a stooped posture. Although osteopenia is not a disease, making changes to your lifestyle and diet can help to prevent osteopenia from developing into osteoporosis. What are the causes? Osteopenia is caused by loss of calcium in the bones. Bones are constantly changing. Old bone cells are continually being replaced with new bone cells. This process builds new bone. The mineral calcium is needed to build new bone and maintain bone density. Bone density is usually highest around age 35. After that, most people's bodies cannot replace all the bone they have lost with new bone. What increases the risk? You are more likely to develop this condition if: You are older than age 50. You are a woman who went through menopause early. You have a long illness that keeps you in bed. You do not get enough exercise. You lack certain nutrients (malnutrition). You have an overactive thyroid gland (hyperthyroidism). You use products that contain nicotine or tobacco, such as cigarettes, e-cigarettes and chewing tobacco, or you drink a lot of alcohol. You are taking medicines that weaken the bones, such as steroids. What are the signs or symptoms? This condition does not cause any symptoms. You may have a slightly higher risk for bone breaks (fractures), so getting fractures more easily than normal may be an indication of osteopenia. How is this diagnosed? This condition may be diagnosed based on an X-ray exam that measures bone density (dual-energy X-ray absorptiometry, or DEXA). This test can measure bone density in your hips, spine, and wrists. Osteopenia has no symptoms, so this condition is usually diagnosed after a routine bone density screening test is done for osteoporosis. This routine screening is usually done for: Women who are age 65 or older. Men who are age 70 or older. If you have risk factors for osteopenia, you may have the screening test at an earlier age. How is this treated? Making dietary and lifestyle changes can lower your risk for osteoporosis. If you have severe osteopenia that is close to becoming osteoporosis, this condition can be treated with medicines and dietary supplements such as calcium and vitamin D. These supplements help to rebuild bone density. Follow these instructions at home: Eating and drinking Eat a diet that is high in calcium and vitamin D. Calcium is found in dairy products, beans, salmon, and leafy green vegetables like spinach and broccoli. Look for foods that have vitamin D and calcium added to them (fortified foods), such as orange juice, cereal, and bread. Lifestyle Do 30 minutes or more of a weight-bearing exercise every day, such as walking, jogging, or playing a sport. These types of exercises strengthen the bones. Do not use any products that contain nicotine or tobacco, such as cigarettes, e-cigarettes, and chewing tobacco. If you need help quitting, ask your health care provider. Do not drink alcohol if: ?Your health care provider tells you not to drink. ?You are , may be , or are planning to become . If you drink alcohol: ?Limit how much you use to: ?0 1 drink a day for women. ?0 2 drinks a day for men. ?Be aware of how much alcohol is in your drink. In the [place] one drink equals one 12 oz bottle of beer (355 mL), one 5 oz glass of wine (148 mL), or one 1 oz glass of hard liquor (44 mL). General instructions Take dxoj-wih-uayzjyn and prescription medicines only as told by your health care provider. These include vitamins and supplements. Take precautions at home to lower your risk of falling, such as: ?Keeping rooms well-lit and free of clutter, such as cords. ?Installing safety rails on stairs. ?Using rubber mats in the bathroom or other areas that are often wet or slippery. Keep all follow-up visits. This is important. Contact a health care provider if: You have not had a bone density screening for osteoporosis and you are: ?A woman who is age 65 or older. ?A man who is age 70 or older. You are a postmenopausal woman who has not had a bone density screening for osteoporosis. You are older than age 50 and you want to know if you should have bone density screening for osteoporosis. Summary Osteopenia is a loss of thickness (density) inside the bones. Another name for osteopenia is low bone mass. Osteopenia is not a disease, but it may increase your risk for a condition that causes the bones to become thin and break more easily (osteoporosis). You may be at risk for osteopenia if you are older than age 50 or if you are a woman who went through early menopause. Osteopenia does not cause any symptoms, but it can be diagnosed with a bone density screening test. Dietary and lifestyle changes are the first treatment for osteopenia. These may lower your risk for osteoporosis. This information is not intended to replace advice given to you by your health care provider. Make sure you discuss any questions you have with your health care provider. Document Revised: 04/05/2021 Document Reviewed: 04/05/2021 [employer] Patient Education 2022 [email or web address]. 12/10/2023 17:55:49 Heart Disease Prevention Heart Disease Prevention Heart disease is the leading cause of in the world. Coronary artery disease is the most common cause of heart disease. This condition results when cholesterol and other substances (plaque) build up inside the rosa of the blood vessels that supply your heart muscle (arteries). This buildup in arteries is called atherosclerosis. You can take actions to lower your risk of heart disease. How can heart disease affect me? Heart disease can cause many unpleasant symptoms and complications, such as: Chest pain (angina). Reduced or blocked blood flow to your heart. This can cause: ?Irregular heartbeats (arrhythmias). ?Heart attack. ?Heart failure. What can increase my risk? The following factors may make you more likely to develop this condition: High blood pressure (hypertension). High cholesterol. A diet high in saturated fats or trans fats. Obesity. Diabetes. Having a family history of heart disease. Certain lifestyle factors, including: ?Smoking. ?Lack of physical activity. ?Drinking too much alcohol. What actions can I take to prevent heart disease? Nutrition Follow a heart-healthy eating plan as told by your health care provider. Examples include the DASH eating plan. DASH stands for Dietary Approaches to Stop Hypertension. Generally, it is recommended that you: ?Eat less salt (sodium). Ask your health care provider how much sodium is safe for you. Most people should have less than 2,300 mg each day. ?Limit unhealthy fats, such as saturated and trans fats, in your diet. You can do this by eating low-fat dairy products, eating less red meat, and avoiding processed foods. ?Eat healthy fats (omega-3 fatty acids). These are found in fish, such as mackerel or salmon. ?Eat more fruits and vegetables. You should try to fill one-half of your plate with fruits and vegetables at each meal. ?Eat more whole grains. ?Avoid foods and drinks that have added sugars. Try to limit how much added sugar you have to: ?Less than 25 grams a day for women. ?Less than 36 grams a day for men. Lifestyle Get regular exercise. This is one of the most important things you can do for your health. Generally, it is recommended that you: ?Exercise for at least 30 minutes on most days of the week (150 minutes each week). This should be exercise that causes your heart to beat faster (aerobic exercise). ?Add strength exercises on at least 2 days each week. Do not use any products that contain nicotine or tobacco. These products include cigarettes, chewing tobacco, and vaping devices, such as e-cigarettes. These can damage your heart and blood vessels. If you need help quitting, ask your health care provider. Alcohol use Do not drink alcohol if: ?Your health care provider tells you not to drink. ?You are , may be , or are planning to become . If you drink alcohol: ?Limit how much you have to: ?0 1 drink a day for women. ?0 2 drinks a day for men. ?Know how much alcohol is in your drink. In the [place] one drink equals one 12 oz bottle of beer (355 mL), one 5 oz glass of wine (148 mL), or one 1 oz glass of hard liquor (44 mL). Medicines Take pzmt-aul-bjfuofq and prescription medicines only as told by your health care provider. Work with your health care provider to find out whether it is safe and beneficial for you to take aspirin daily. Make sure that you understand how much to take and what form to take. Depending on your risk factors, your health care provider may prescribe medicines to lower your risk of heart disease or to control related conditions. You may take medicine to: ?Lower cholesterol. ?Control blood pressure. ?Control diabetes. General information Keep your blood pressure under control, as recommended by your health care provider. For most healthy people, the upper number of their blood pressure (systolic) should be no higher than 120, and the lower number (diastolic) no higher than 80. Treatment may be needed if your blood pressure is higher than 130/80. Have your blood pressure checked at least every 2 years. Your health care provider may check your blood pressure more often if you have high blood pressure. After age 20, have your cholesterol checked every 4 6 years. If you have risk factors for heart disease, you may need to have it checked more often. Treatment may be needed if your cholesterol is high. Have your body mass index (BMI) checked every year. Your health care provider can calculate your BMI from your height and weight. Check your waist circumference. It should be: ?No more than 35 inches (89 cm) for women who are not . ?No more than 40 inches (102 cm) for men. Work with your health care provider to lose weight, if needed, or to maintain a healthy weight. Where to find more information: Centers for Disease Control and Prevention: www.cdc.gov/heartdisease [place] [employer]: www.heart.org Summary Heart disease is the leading cause of in the world. Heart disease can cause chest pain, abnormal heart rhythms, heart attack, and heart failure. Some of the risk factors for heart disease include high blood pressure, high cholesterol, and smoking. You can take actions to lower your chances of developing heart disease. Work with your health care provider to reduce your risk by following a heart-healthy diet, being physically active, and controlling your weight, blood pressure, and cholesterol level. This information is not intended to replace advice given to you by your health care provider. Make sure you discuss any questions you have with your health care provider. Document Revised: 06/19/2022 Document Reviewed: 06/19/2022 [employer] Patient Education 2022 [email or web address]. 12/10/2023 17:55:48 DASH Eating Plan DASH Eating Plan DASH [...] Dairy Whole or 2% milk, cream, and qoxk-nrr-nxbd. Whole or full-fat cream cheese. Whole-fat or [...] more information National [employer]: www.nhlbi.nih.gov [place] [employer]: www.heart.org Academy of Nutrition and [...] provider. Document Revised: 09/22/2020 Document Reviewed: 09/22/2020 [employer] Patient Education 2022 [email or web address]. 12/10/2023 17:55:46 Major Depressive Disorder, Adult Major Depressive Disorder, Adult Major depressive disorder (MDD) is a mental health condition. It may also be called clinical depression or unipolar depression. MDD causes symptoms of sadness, hopelessness, and loss of interest in things. These symptoms last most of the day, almost every day, for 2 weeks. MDD can also cause physical symptoms. It can interfere with relationships and with everyday activities, such as work, school, and activities that are usually pleasant. MDD may be mild, moderate, or severe. It may be single-episode MDD, which happens once, or recurrent MDD, which may occur multiple times. What are the causes? The exact cause of this condition is not known. MDD is most likely caused by a combination of things, which may include: Your personality traits. Tibes or conditioned behaviors or thoughts or feelings that reinforce negativity. Any alcohol or substance misuse. Long-term (chronic) physical or mental health illness. Going through a traumatic experience or major life changes. What increases the risk? The following factors may make someone more likely to develop MDD: A family history of depression. Being a woman. Troubled family relationships. Abnormally low levels of certain brain chemicals. Traumatic or painful events in childhood, especially abuse or loss of a parent. A lot of stress from life experiences, such as poor living conditions or discrimination. Chronic physical illness or other mental health disorders. What are the signs or symptoms? The main symptoms of MDD usually include: Constant depressed or irritable mood. A loss of interest in things and activities. Other symptoms include: Sleeping or eating too much or too little. Unexplained weight gain or weight loss. Tiredness or low energy. Being agitated, restless, or weak. Feeling hopeless, worthless, or guilty. Trouble thinking clearly or making decisions. Thoughts of suicide or thoughts of harming others. Isolating oneself or avoiding other people or activities. Trouble completing tasks, work, or any normal obligations. Severe symptoms of this condition may include: Psychotic depression.This may include false beliefs, or delusions. It may also include seeing, hearing, tasting, smelling, or feeling things that are not real (hallucinations). Chronic depression or persistent depressive disorder. This is low-level depression that lasts for at least 2 years. Melancholic depression, or feeling extremely sad and hopeless. Catatonic depression, which includes trouble speaking and trouble moving. How is this diagnosed? This condition may be diagnosed based on: Your symptoms. Your medical and mental health history. You may be asked questions about your lifestyle, including any drug and alcohol use. A physical exam. Blood tests to rule out other conditions. MDD is confirmed if you have the following symptoms most of the day, nearly every day, in a 2-week period: Either a depressed mood or loss of interest. At least four other MDD symptoms. How is this treated? This condition is usually treated by mental health professionals, such as psychologists, psychiatrists, and clinical social workers. You may need more than one type of treatment. Treatment may include: Psychotherapy, also called talk therapy or counseling. Types of psychotherapy include: ?Cognitive behavioral therapy (CBT). This teaches you to recognize unhealthy feelings, thoughts, and behaviors, and replace them with positive thoughts and actions. ?Interpersonal therapy (IPT). This helps you to improve the way you communicate with others or relate to them. ?Family therapy. This treatment includes members of your family. Medicines to treat anxiety and depression. These medicines help to balance the brain chemicals that affect your emotions. Lifestyle changes. You may be asked to: ?Limit alcohol use and avoid drug use. ?Get regular exercise. ?Get plenty of sleep. ?Make healthy eating choices. ?Spend more time outdoors. Brain stimulation. This may be done if symptoms are very severe and other treatments have not worked. Examples of this treatment are electroconvulsive therapy and transcranial magnetic stimulation. Follow these instructions at home: Activity Exercise regularly and spend time outdoors. Find activities that you enjoy doing, and make time to do them. Find healthy ways to manage stress, such as: ?Meditation or deep breathing. ?Spending time in nature. ?Journaling. Return to your normal activities as told by your health care provider. Ask your health care provider what activities are safe for you. Alcohol and drug use If you drink alcohol: ?Limit how much [...] oz glass of hard liquor (44 mL). ?Discuss your alcohol use with your health care provider. Alcohol can affect any antidepressant medicines you are taking. Discuss any drug use with your health care provider. General instructions Take tzwp-gzp-fkzpaeh and prescription medicines only as told by your health care provider. Eat a healthy diet and get plenty of sleep. Consider joining a support group. Your health care provider may be able to recommend one. Keep all follow-up visits as told by your health care provider. This is important. Where to find more information National [place] on Mental Illness: www.anthony.org [place] National [employer] of Mental Health: www.nimh.nih.gov Contact a health care provider if: Your symptoms get worse. You develop new symptoms. Get help right away if: You self-harm. You have serious thoughts about hurting yourself or others. You hallucinate. If you ever feel like you may hurt yourself or others, or have thoughts about taking your own life, get help right away. Go to your nearest emergency department or: Call your local emergency services (911 in the [place] Call a suicide crisis helpline, such as the National Suicide Prevention Lifeline at or 267 in the [place] This is open 24 hours a day in the [place] Text the Crisis Text Line at 691988 (in the [place] Summary Major depressive disorder (MDD) is a mental health condition. MDD causes symptoms of sadness, hopelessness, and loss of interest in things. These symptoms last most of the day, almost every day, for 2 weeks. The symptoms of MDD can interfere with relationships and with everyday activities. Treatments and support are available for people who develop MDD. You may need more than one type of treatment. Get help right away if you have serious thoughts about hurting yourself or others. This information is not intended to replace advice given to you by your health care provider. Make sure you discuss any questions you have with your health care provider. Document Revised: 05/15/2022 Document Reviewed: 09/30/2020 [employer] Patient Education 2022 [email or web address]. 12/10/2023 17:55:43 Fatigue Fatigue If you have fatigue, you feel tired all the time and have a lack of energy or a lack of motivation. Fatigue may make it difficult to start or complete tasks because of exhaustion. Occasional or mild fatigue is often a normal response to activity or life. However, long-term (chronic) or extreme fatigue may be a symptom of a medical condition such as: Depression. Not having enough red blood cells or hemoglobin in the blood (anemia). A problem with a small gland located in the lower front part of the neck (thyroid disorder). Rheumatologic conditions. These are problems related to the body's defense system (immune system). Infections, especially certain viral infections. Fatigue can also lead to negative health outcomes over time. Follow these instructions at home: Medicines Take lzwn-mac-rbjxbtu and prescription medicines only as told by your health care provider. Take a multivitamin if told by your health care provider. Do not use herbal or dietary supplements unless they are approved by your health care provider. Eating and drinking Avoid heavy meals in the evening. Eat a well-balanced diet, which includes lean proteins, whole grains, plenty of fruits and vegetables, and low-fat dairy products. Avoid eating or drinking too many products with caffeine in them. Avoid alcohol. Drink enough fluid to keep your urine pale yellow. Activity Exercise regularly, as told by your health care provider. Use or practice techniques to help you relax, such as yoga, montrell chi, meditation, or massage therapy. Lifestyle Change situations that cause you stress. Try to keep your work and personal schedules in balance. Do not use recreational or illegal drugs. General instructions Monitor your fatigue for any changes. Go to bed and get up at the same time every day. Avoid fatigue by pacing yourself during the day and getting enough sleep at night. Maintain a healthy weight. Contact a health care provider if: Your fatigue does not get better. You have a fever. You suddenly lose or gain weight. You have headaches. You have trouble falling asleep or sleeping through the night. You feel angry, guilty, anxious, or sad. You have swelling in your legs or another part of your body. Get help right away if: You feel confused, feel like you might faint, or faint. Your vision is blurry or you have a severe headache. You have severe pain in your abdomen, your back, or the area between your waist and hips (pelvis). You have chest pain, shortness of breath, or an irregular or fast heartbeat. You are unable to urinate, or you urinate less than normal. You have abnormal bleeding from the rectum, nose, lungs, nipples, or, if you are female, the vagina. You vomit blood. You have thoughts about hurting yourself or others. These symptoms may be an emergency. Get help right away. Call 911. Do not wait to see if the symptoms will go away. Do not drive yourself to the hospital. Get help right away if you feel like you may hurt yourself or others, or have thoughts about taking your own life. Go to your nearest emergency room or: Call 911. Call the National Suicide Prevention Lifeline at or 066. This is open 24 hours a day. Text the Crisis Text Line at 377445. Summary If you have fatigue, you feel tired all the time and have a lack of energy or a lack of motivation. Fatigue may make it difficult to start or complete tasks because of exhaustion. Long-term (chronic) or extreme fatigue may be a symptom of a medical condition. Exercise regularly, as told by your health care provider. Change situations that cause you stress. Try to keep your work and personal schedules in balance. This information is not intended to replace advice given to you by your health care provider. Make sure you discuss any questions you have with your health care provider. Document Revised: 08/12/2022 Document Reviewed: 08/12/2022 [employer] Patient Education 2022 [employer] Follow Up Care 10/30/2023 15:21:43 With:Beatrice Ingram FAM, MED Address: [address]oco [address], [address] [address]- When:Within 4 Week(s) Comments:Follow-up on ultrasound of the kidney, CT chest, lab results, hypertension, smoking sensation, [facility] 12-04-2023 Evaluation + Plan note Future Appointments Appointment Date:12/11/2023 01:45:00 PM Scheduled Provider: Location:.[facility] Appointment Type:OT 60 (FT) Appointment Date:12/15/2023 02:15:00 PM Scheduled Provider: Location:.[facility] Appointment Type:OT 60 (FT) Appointment Date:12/16/2023 02:00:00 PM Scheduled Provider: Location:.[facility] Appointment Type:OT 60 (FT) Appointment Date:12/18/2023 08:15:00 AM Scheduled Provider: Location:.[facility] Appointment Type:OT Re-Eval (FT) Appointment Date:01/21/2024 01:40:00 PM Scheduled Provider:Beatrice Ingram Location[facility] Appointment Type: Open Appointment Date:07/13/2024 02:30:00 PM Scheduled Provider: Location:[facility] Appointment Type: Medicare Wellness Subsequent Future Scheduled TestsSedimentation Rate Automated 12/10/2375DmxQ2z 12/10/23UA With Cult Reflex 12/10/23Vitamin D 25 Hydroxy 12/10/23CBC w/ Auto Diff 12/10/23Comprehensive Metabolic Panel 12/10/23Lipase Level 12/10/23Lipid Panel 12/10/23Thyroid Stimulating Hormone 12/10/23Free T4 12/10/23CT Chest, Low Dose Screening 12/10/23US Renal 12/10/23MA Mamm Screen w/CAD if perf and 3D Jai 12/10/23 [facility] 10-30-2023 Hospital Discharge instructions Patient Education 10/30/2023 [...] it yourself. Visit the VAERS website at www.vaers.[facility].gov or call . VAERS is only for reporting reactions, and VAERS staff do not give medical advice. 6. How can I learn more? Ask your health care provider. Call your local or state health department. Contact the Centers for Disease Control and Prevention (CDC): ?Call (9-785-ZUC-INFO) or ?Visit CDC's website at www.cdc.gov/vaccines Source: CDC Vaccine Information Statement PPSV23 Vaccine (09/01/2019) This same material is available at www.cdc.gov for no charge. This information is not intended to replace advice given to you by your health care provider. Make sure you discuss any questions you have with your health care provider. Document Revised: 09/18/2022 Document Reviewed: 07/22/2022 [employer] Patient Education 2022 [email or web address]. 10/30/2023 15:37:01 Understanding Your Risk for Falls [...] www.cdc.gov Community-Based Fall Prevention Programs: www.cdc.gov National [employer] on Aging: www.erich.nih.gov Contact a health care [...] provider. Document Revised: 05/23/2021 Document Reviewed: 05/23/2021 [employer] Patient Education 2022 [email or web address]. 10/30/2023 15:36:56 Exercising to Lose Weight Exercising [...] your health care provider or diet and medical authorization specialist (dietitian). This may include: ?Eating fewer calories. [...] provider. Document Revised: 12/16/2021 Document Reviewed: 12/16/2021 [employer] Patient Education 2022 [email or web address]. 10/30/2023 15:36:55 DASH Eating Plan DASH Eating [...] Dairy Whole or 2% milk, cream, and psze-zav-kczn. Whole or full-fat cream cheese. Whole-fat or [...] more information National Heart, Lung, and Blood [employer]: www.nhlbi.nih.gov [place] Heart Association: www.heart.org Academy of Nutrition and [...] provider. Document Revised: 09/22/2020 Document Reviewed: 09/22/2020 [employer] Patient Education 2022 [email or web address]. 10/30/2023 15:36:53 BMI for Adults BMI for [...] numbers. This can be done either in [place] ([place] or metric measurements. Note that charts and online BMI calculators are available to help you find your BMI quickly and easily without having to do these calculations yourself. To calculate your BMI in [place] ([place] measurements: 1.Measure your weight in pounds [...] Centers for Disease Control and Prevention: www.cdc.gov [place] Heart Association: www.heart.org National Heart, Lung, and Blood [employer]: www.nhlbi.nih.gov Summary Body mass index (BMI) is a number that is calculated from a person's weight and height. BMI may help estimate how much of a person's weight is composed of fat. BMI can help identify those who may be at higher risk for certain medical problems. BMI can be measured using [place] measurements or metric measurements. BMI charts are used to identify whether you are underweight, normal weight, overweight, or obese. This information is not intended to replace advice given to you by your health care provider. Make sure you discuss any questions you have with your health care provider. Document Revised: 07/12/2020 Document Reviewed: 05/19/2020 [employer] Patient Education 2022 [email or web address]. [facility] 10-02-2023 Note New patient here [...] All other systems reviewed and are negative. [facility] 10-02-2023 Note Cardiovascular Medic in[facility] SUBJECTIVE No chief complaint on file. [...] in about 3 months (around 01/01/2024). Dario Avila APRN-[facility] Cardiovascular Medicine [facility] 08-21-2023 Hospital Discharge instructions Patient Education 08/21/2023 15:21:56 Parotitis, Mcld-dk-Iqgk Parotitis Parotitis means that you have irritation [...] Follow these instructions at home: Medicines Take vphq-qor-njmroqb and prescription medicines only as told by [...] saliva. Take good care of your mouth: ?[place] your teeth at least two times a [...] provider. Document Revised: 03/01/2022 Document Reviewed: 03/01/2022 [employer] Patient Education 2022 [email or web address]. 08/21/2023 15:21:53 Sinus Infection, Adult Sinus Infection, [...] saline washes). ?Medicines that treat allergies (antihistamines). ?Mqbc-bht-aeikdhs pain relievers. If caused by bacteria, your [...] at home: Medicines Take, use, or apply kktv-ddd-extwkwt and prescription medicines only as told by [...] and water are not available, use hand machine designer. Do not smoke. Avoid being around people [...] provider. Document Revised: 09/24/2022 Document Reviewed: 09/24/2022 [employer] Patient Education 2022 [employer]. Follow Up Care 08/21/2023 13:44:38 With:Martha Hathaway CNP Address:Unknown When: Unknown [facility] 05-09-2022 Note PROCEDURE: XR FOOT [...] authenticated by: DENIA JOHNS Date: 2022-05-09 12:09 [facility] 04-18-2022 Hospital Discharge instructions Patient Education [...] knees and rising up. Do strength and ulyeq-nv-hizuoh exercises only as told by your health care provider or physical therapist. General instructions Take xjjc-nuy-ymjffrt and prescription medicines only as told by [...] 11/27/2005 Document Revised: 05/04/2019 Document Reviewed: 05/04/2019 [employer] Patient Education 2020 [email or web address]. 04/18/2022 18:26:03 Tobacco Use Disorder Tobacco Use [...] reduces withdrawal symptoms. NRT is available as: ?Bqhj-zht-rtloqpa gums, lozenges, and skin patches. ?Prescription mouth [...] recovery for many people. General instructions Take pshy-bqd-lgnawza and prescription medicines only as told by your health care provider. Check with your health care provider before taking any new prescription or xxtn-sbh-icldvyb medicines. Decide on a friend, family member, or smoking quit-line (such as 5-770-NYZG-NOW in the [place] that you can call [...] 06/25/2005 Document Revised: 10/07/2018 Document Reviewed: 10/07/2018 [employer] Patient Education 2020 [email or web address]. 04/18/2022 18:25:59 BMI for Adults BMI for [...] height. This can be done either in [place] ([place] or metric measurements. Note that charts are available to help you find your BMI quickly and easily without having to do these calculations yourself. To calculate your BMI in [place] ([place] measurements, your health care provider will: [...] medical problems. BMI can be measured using [place] measurements or metric measurements. To interpret your [...] 07/01/2005 Document Revised: 10/02/2018 Document Reviewed: 09/02/2018 [employer] Patient Education 2020 [email or web address]. 04/18/2022 18:25:57 Vitamin D Deficiency Vitamin D [...] 01/11/2013 Document Revised: 06/28/2019 Document Reviewed: 06/28/2019 [employer] Patient Education 2020 [email or web address]. 04/18/2022 18:25:50 Managing Anxiety, Adult Managing Anxiety, [...] care provider. Avoid caffeine, alcohol, and certain vgte-gso-iliuzqn cold medicines. These may make you feel worse. Ask your pharmacist which medicines to avoid. General instructions Take wqin-hqx-jslwcpp and prescription medicines only as told by [...] Depression Association of [place] (ADAA): www.adaa.org National [place] on Mental Illness (ANTHONY): www.anthony.org Contact a [...] 10/14/2017 Document Revised: 03/21/2020 Document Reviewed: 03/21/2020 [employer] Patient Education 2019 [email or web address]. 04/18/2022 18:25:47 Major Depressive Disorder, Adult Major [...] your health care provider. General instructions Take nkov-xcz-yncezew and prescription medicines only as told by [...] important. Where to find more information National [place] on Mental Illness www.anthony.org [place].S. National [employer] of Mental Health www.[facility].nih.gov National Suicide Prevention Lifeline 2-290-209-ILBN (4712). This is free, 24-hour help. Contact a [...] 02/14/2014 Document Revised: 10/02/2018 Document Reviewed: 04/30/2017 [employer] Patient Education 2020 [email or web address]. 04/18/2022 18:25:41 Dyslipidemia Dyslipidemia Dyslipidemia is an [...] quitting, ask your health care provider. Take wpah-wjd-gwywcgm and prescription medicines only as told by [...] 10/25/2014 Document Revised: 06/14/2019 Document Reviewed: 05/21/2019 [employer] Patient Education 2020 [email or web address]. 04/18/2022 18:25:39 DASH Eating Plan DASH Eating [...] your health care provider or diet and medical authorization specialist (dietitian) to adjust your eating plan to [...] each week. ?Heart-healthy fats. Healthy fats called [place]-3 fatty acids are found in foods such [...] Dairy Whole or 2% milk, cream, and wfve-uiv-hhup. Whole or full-fat cream cheese. Whole-fat or [...] more information: National Heart, Lung, and Blood [employer]: www.nhlbi.nih.gov [place] Heart Association: www.heart.org Summary The DASH eating [...] your health care provider or diet and medical authorization specialist (dietitian) to adjust your eating plan to your individual calorie needs. This information is not intended to replace advice given to you by your health care provider. Make sure you discuss any questions you have with your health care provider. Document Released: 10/08/2012 Document Revised: 10/02/2018 Document Reviewed: 10/13/2017 [employer] Patient Education 2020 [email or web address]. Follow Up Care 04/17/2022 13:33:25 With:Martha Hathaway CNP Address: When:6 months [facility] 04-18-2022 Evaluation + Plan note Future Scheduled TestsVitamin D 25 Hydroxy 04/18/22 [facility] [place] Evaluation + Plan note Future Appointments Appointment Date:09/06/2022 01:00:00 PM Scheduled Provider: Location:[facility] Appointment Type: Medicare Wellness Subsequent Future Scheduled TestsBD Bone Density DEXA 10/03/21MA Mamm Screen w/CAD if perf and 3D Jai 10/03/21 [facility] Evaluation + Plan note Future Appointments Appointment Date:05/01/2022 02:20:00 PM Scheduled Provider:Leopoldo Sanchez DO [place] Appointment Type: Open Appointment Date:09/06/2022 01:00:00 PM Scheduled Provider: Location:[facility] Appointment Type: Medicare Wellness Subsequent Future Scheduled TestsVitamin D 25 Hydroxy 04/18/22BD Bone Density DEXA 10/03/21MA Mamm Screen w/CAD if perf and 3D Jai 10/03/21 [facility] Evaluation + Plan note Future Appointments Appointment Date:09/17/2023 01:00:00 PM Scheduled Provider: Location:[facility] Appointment Type:FM Medicare Wellness Subsequent [facility] Evaluation + Plan note Future Appointments Appointment Date:11/10/2023 01:15:00 PM Scheduled [facility] Type:OT Eval (FT) Appointment Date:12/10/2023 04:00:00 PM Scheduled Provider:Beatrice Ingram Location[place] Appointment Type: New Patient - Adult Appointment Date:07/13/2024 02:30:00 PM Scheduled Provider: Location:[facility] Appointment Type: Medicare Wellness Subsequent [facility] Hospital course Narrative No data available for this section [facility] Hospital Discharge instructions No data available for this section [facility] Progress note No data available for this section [facility] Summary Purpose Family History No Family History Records FoundNo Family History Records Found No data available for this section No Family History Records FoundNo Family History Records Found No data available for this section No data available for this section No Family History Records Found Advance Directives No Advanced Directives Records FoundNo Advanced Directives Records FoundNo Advanced Directives Records FoundNo Advanced Directives Records FoundNo Advanced Directives Records Found Additional Source Comments INFORMATION SOURCE (unrecogn ized section and content) DATE CREATED AUTHOR 04/29/2018 [facility] DATE CREATED AUTHOR AUTHOR'S ORGANIZ ATION 05/12/2022 [facility] DATE CREATED AUTHOR AUTHOR'S ORGANIZ ATION 10/04/2023 [facility] DATE CREATED AUTHOR AUTHOR'S ORGANIZ ATION 10/06/2023 Nadiya Griffin sp[facility]ol[facility] DATE CREATED AUTHOR AUTHOR'S ORGANIZ ATION 12/12/2023 [facility] Care Team (unrecognized sect ion and content) Personnel Name: Martha Hathaway CNP Address: [address] [place] [address] [place] Name: Nia Wolff Personnel Name: Martha Hathaway CNP Address: Address: [address] [place] [address] [place] Name: Nia Wolff Personnel Name: Martha Hathaway CNP Address: Address: [address] [place] [address] [place] Name: Nia Wolff Personnel Name: Miguel Atkins MD Address: Address: [address] [place] [address]- Name: Nia Wolff Personnel Name: Beatrice Ingram Address: Address: [address] [place] [address] [place] [address]- Name: Nia Wolff FOR RECORDS PERTAINING TO [...] BE BASED ON THE PRIMARY CLINICAL RECORDS. [facility] [employer] [facility]. provides no warranty or guarantee of the accuracy or completeness of information in this document.
== END 2023-12-15 08:29 | disposition home or self-care (01) ==
LOC: RAD 08:29
PROVIDERS: Visit Provider Orthopaedic Surgery
DX: S52.571D Other intraarticular fracture of lower end of right radius, subsequent encounter for closed fracture with routine healing (principal)
CPT/HCPCS: 73110

== ENCOUNTER 2024-02-16 08:32 | Outpatient (OUT) | payer OTHER, SELFPAY ==
--- NOTE | 2024-02-16 | XR_ITS ---
The [address] [address] Patient Name: MELBA ZAPATA MRN: [id number] date: 1955 Sex: F Assigned Patient Location: Current Patient Location: Accession/Order Number: [id number] Exam Date: 02/16/2024 08:33 Report Date: 02/16/2024 10:07 At the request of: DENIA DIETRICH Procedure: XR wrist RT min 3V PROCEDURE: XR wrist RT min 3V COMPARISON: 12/15/2023 HISTORY: RIGHT WRIST PAIN FINDINGS: BONES:Stable distal radius fracture with internal fixation utilizing a plate plate and screws. 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 No visible soft tissue swelling. EFFUSION:None visible. OTHER: Negative. XR/XR wrist RT min 3V IMPRESSION: Stable degenerative and postsurgical changes Electronically authenticated by: ROSHNI ABBOTT Date: 02/16/2024 10:07
== END 2024-02-16 08:33 | disposition home or self-care (01) ==
PROVIDERS: Visit Provider Orthopaedic Surgery
DX: S52.571D Other intraarticular fracture of lower end of right radius, subsequent encounter for closed fracture with routine healing (principal)
CPT/HCPCS: 73110

== ENCOUNTER 2024-05-04 14:48 | Outpatient (OUT) | payer MEDICARE, OTHER, SELFPAY ==
--- NOTE | 2024-05-04 15:00 | CA_ITS ---
Patient Name: MELBA ZAPATA MR#: [id number] : 1955 Exam Date: 05/04/2024 Ordering Doctor: MRS. DARIO VANG NP ECHOCARDIOGRAM REPORT PROCEDURE: CA ECHO DOPPLER COMPLETE INDICATIONS: Abnormal ECG, hypertension heart disease COMPARISON: None. DESCRIPTION: COMPLETE ECHOCARDIOGRAM Real-time transthoracic echocardiography with 2D, M-mode, spectral and color flow Doppler performed. QUALITY: Technical quality was good. LEFT VENTRICLE: Normal chamber size. Moderate concentric left ventricular hypertrophy. Global left ventricular systolic function is normal. LV EF: Estimated left ventricular ejection fraction is 60-65 %. DIASTOLIC: Normal diastolic function. ATRIAL SEPTUM: LEFT ATRIUM: Normal chamber size. RIGHT ATRIUM: Normal chamber size. RIGHT VENTRICLE: Normal chamber size. Normal right ventricular systolic function. TRICUSPID VALVE: Normal mobility and thickness. No stenosis with trivial regurgitation. Mild pulmonary hypertension. RVSP 36 mmHg MITRAL VALVE: Normal mobility and thickness. No evidence of mitral valve stenosis. There is no mitral annular calcification. Trivial mitral regurgitation. AORTIC VALVE: Normal trileaflet appearance. No visible sclerosis. Normal leaflet mobility. No evidence of aortic valve stenosis. No aortic regurgitation. AORTIC ROOT: Normal diameter and appearance. PULMONIC VALVE: Normal thickness and mobility. No stenosis. No regurgitation. PERICARDIUM: No evidence of pericardial effusion. IVC: Collapses with inspirations. Normal size. PLEURA: CONCLUSION: 1. Moderate concentric left ventricular hypertrophy with normal systolic function. LVEF is estimated at 60 to 65%. 2. Normal diastolic function. 3. Normal right ventricular size and systolic function. 4. No significant valvular dysfunction. 5. Mildly elevated right-sided pressures. Adult Echocardiography Procedure Report Left Ventricle LVEDD (3.7 - 5.6 cm): 4.15 cm LVESD (2.2 - 4.0 cm): 2.74 cm LVIVS thickness (0.6 - 1.2 cm): 1.56 cm LVPW thickness (0.5 - 1.0 cm): 1.35 cm e': 0.10 m/s E - e': 7.32 LVOT Max Gradient: 4.10 mm[Hg] LVOT Area (cm2): 1.01 m/s Peak Velocity (LVOT): 1.01 m/s Mean Velocity (LVOT): 0.74 m/s LVOT Diameter 2.30 cm Left Ventricular Ejection Fraction: 60-65 % Left Atrium LA Volume Index (2D A2C): 27.44 ml/m2 Left Atrium Systolic Dimension: 3.98 cm Mitral Valve MV E to A Ratio: 0.78 Mitral Valve A-Wave Peak Velocity: 0.96 m/s Mitral Valve E-Wave Peak Velocity: 0.75 m/s Right Ventricle RV Internal Diastolic Dimension: 3.38 cm Aorta AO Root Diam: 3.46 cm Ascending Ao Diam: 3.20 cm Aortic Valve AoV Area (Peak Alfredo): 3.19 cm2, 3.19 cm2 AoV Area (VTI): 3.74 cm2, 3.74 cm2 Peak Velocity(Antegrade Flow): 1.32 m/s Peak Gradient(Antegrade Flow): 7.00 mm[Hg] Mean Velocity(Antegrade Flow): 0.88 m/s Mean Gradient(Antegrade Flow): 3.53 mm[Hg] Velocity Time Integral: 24.00 cm Tricuspid Valve Peak Velocity (Regurgitant Flow): 1.77 m/s, 2.86 m/s, 2.08 m/s Pulmonic Valve Mean Gradient: 1.72 mm[Hg], 1.73 mm[Hg] Mean Velocity: 0.63 m/s, 0.62 m/s Peak Velocity: 0.84 m/s Peak Gradient: 2.61 mm[Hg], 3.05 mm[Hg] Right Atrium Right Atrium Systolic Pressure: 63.02 ml, 63.02 ml Dictated by: Xavier Grigsby M.D. on 05/04/2024 at 19:34 Approved by: Xavier Grigsby M.D. on 05/04/2024 at 19:38
== END 2024-05-04 14:49 | disposition home or self-care (01) ==
PROVIDERS: Visit Provider Nurse Practitioner Acute Care
DX: R94.31 Abnormal electrocardiogram [ECG] [EKG] (principal); I11.9 Hypertensive heart disease without heart failure
CPT/HCPCS: 93306

== ENCOUNTER 2024-07-28 12:32 | Outpatient (OUT) | payer MEDICARE, SELFPAY ==
--- NOTE | 2024-07-28 | XR_ITS ---
The [address] [address] Patient Name: MELBA ZAPATA MRN: [id number] date: 1955 Sex: F Assigned Patient Location: Current Patient Location: Accession/Order Number: [id number] Exam Date: 07/28/2024 12:34 Report Date: 07/30/2024 06:40 At the request of: MIGUEL COLEMAN Procedure: XR foot RT min 3V PROCEDURE: XR foot RT min 3V HISTORY: RIGHT FOOT PAIN COMPARISON: XR foot right 05/08/2022 FINDINGS: BONES:Stable, chronic marked medial deviation of the first toe. Prior osteotomy and repair of distal first metatarsal. Single screw within head of second metatarsal. Possible prior bunionectomy. Mild degenerative changes of the third metatarsophalangeal joint and resection of the head of the third proximal phalanx. Small calcaneal plantar spur. SOFT TISSUES:No visible soft tissue swelling. EFFUSION:None visible. OTHER: Negative. XR/XR foot RT min 3V IMPRESSION: 1. Stable chronic changes detailed above. No appreciable acute abnormality. Electronically authenticated by: DENIA JOHNS Date: 07/30/2024 06:40
--- OUTSIDE RECORDS SUMMARY | 2024-07-28 12:36 | XMS_ITS | CCD ---
Author Organization [facility] Care Team Providers Care Human Resources Support Specialist Name Role Phone RUBENS SWARTZ Unavailable Unavailable CHELSEYCAMRYN HERRMANN Unavailable Unavailable Martha Hathaway Primary Care Physician Nia Wolff Unavailable Unavailable DR DENIA JOHNS Consulting Unavailable MIGUEL COLEMAN Attending Unavailable MIGUEL COLEMAN Admitting Unavailable MIGUEL COLEMAN Consulting Unavailable DENIA GRIFFIN Referring Unavailable DENIA GRIFFIN Admitting Unavailable DENIA GRIFFIN Attending Unavailable Miguel Atkins Primary Care Physician Beatrice Barnes Primary Care Physician [phone] Beatrice Barnes Referring Unavailable Beatrice Barnes Attending Unavailable Beatrice Barnes Admitting Unavailable Tony Edmondson Attending Unavailable Beatrice Barnes Admitting Unavailable Beatrice Barnes Attending Unavailable Beatrice Barnes Referring Unavailable Tony Edmondson Attending Unavailable Beatrice Barnes Attending Unavailable Aakash Levy Attending Unavailable Beatrice Barnes Referring Unavailable Aakash Levy Attending Unavailable Antonio FUENTES Attending Unavailable Aakash Levy Referring Unavailable Aakash Levy Admitting Unavailable Aakash Levy Attending Unavailable JOHANA KELLEY Attending Unavailable OPAL COLEMAN Referring Unavailable ESME MEJIA Referring Unavailable UNKNOWN, UNKNOWN Referring Unavailable CARLOS VILLARREAL Admitting Unavailable DEBRA GUZMAN Attending Unavailable NUPUR MCKAY Referring Unavailable BYRON MEJIA Referring Unavailable ESME MEJIA Referring Unavailable MIGUE PUENTES Referring Unavailable MIGUE PUENTES Attending Unavailable DARIO VANG Attending Unavailable DEBBIE SIGALA Attending Unavailable Ricki VAZQUEZ Attending Unavailable Gilbert Desouza Attending Unavailable Gilbert Desouza Referring Unavailable Beatrice Barnes Referring Unavailable Beatrice Barnes Admitting Unavailable Demi Barnesbekaycee Valdez Attending Unavailable Som Willis Attending Unavailable Rai Gordillo Attending Unavailable Wilbert, Miguel Attending Unavailable Beatrice Barnes Attending Unavailable Macla, Miguel Attending Unavailable Demi Barnesbekaycee Valdez Attending Unavailable Beatrice Barnes Attending Unavailable Beatrice Barnes Attending Unavailable Wilbert, Miguel Attending Unavailable Lucinda Jin Attending Unavailable Allergies Allergy Classification Reported Allergen(s) Allergy Type Date of Onset Reaction(s) Facility [facility] (1 source) Contrast media Substance Allergy Swelling (finding) [facility] Penicillins (antibiotic) (1 source) Penicillins; Translations: [penicillins] Drug Allergy H/O: blackout (context-depend ent category) [facility] (19 sources) Contrast media; Translations: [CONTRAST DYE] Propensity to adverse reactions to drug (disorder) 7 Swelling (finding) [facility] (20 sources) Penicillins; Translations: [PENICILLINS] Propensity to adverse reactions to drug (disorder) 7 H/O: blackout (context-depend ent category) [facility] (19 sources) adhesives; Translations: [adhesives] Allergy to substance redness [facility] (1 source) Iodine (And Iodine Containting Drugs) Drug allergy (disorder) 6 [facility] (1 source) Latex; Translations: [LATEX] Propensity to adverse reactions to drug (disorder) 4 [facility] (1 source) IODINATED CONTRAST MEDIA; Translations: [IODINATED CONTRAST MEDIA] Propensity to adverse reactions to drug (disorder) 7 [facility] Medications Current Medications Medication Drug Class(es) Dates Sig (Normalized) Sig (Original) acetaminophen 325 mg / HYDROcodone bitartrate 5 mg oral tablet (2 sources) Opioid Agonist Start: 05-26-2024 End: 05-28-2024 [place]el 325 mg-5 mg oral tablet 1 tab(s), Oral, q6hr as needed for pain, 10 tab(s), Refill(s) 0, [facility], 166, cm, 05/26/24 6:21:00 EDT, Height/Length Dosing, 104.7, kg, 05/26/24 6:21:00 EDT, Weight Dosing Start Date: 05/26/24 Stop Date: 05/28/24 Status: Ordered Albuterol (Eqv-ProAir HFA) 90 mcg/inh inhalation aerosol (6 sources) Start: 04-14-2024 take 2 puff(s) by inhalation every six hours Albuterol (Eqv-ProAir HFA) 90 mcg/inh inhalation aerosol 2 puff(s), Inhalation, q6hr, 18 gm, Refill(s) 6, [facility], 162.2, cm, 04/14/24 14:03:00 EDT, Height/Length Dosing, 104.9, kg, 04/14/24 14:03:00 EDT, Weight Dosing Start Date: 04/14/24 Status: Ordered amLODIPine 5 mg oral tablet (1 source) Dihydropyridine Calcium Channel Cyrus Start: 05-17-2020 take 1 tablet by mouth once daily Norvasc 5 mg Tab 5 mg = 1 tab(s), Oral, Daily, # 90 cap(s), Refills(s) 3, Pharmacy: [facility], 170.1, cm, 12/28/19 11:34:00 EST, Height/Length Measured, 106, kg, 10/06/19 11:07:00 EST, Weight Measured Start Date: 05/17/20 Status: Ordered 12 hr buPROPion hydrochloride 150 mg extended release oral tablet (10 sources) Aminoketone Start: 03-19-2024 take 1 tablet by mouth twice daily Wellbutrin SR 150 mg Tab-ER 150 mg = 1 tab(s), Oral, BID, # 180 tab(s), Refills(s) 0, Pharmacy: [facility], 162.2, cm, 03/19/24 15:05:00 EDT, Height/Length Dosing, 103.9, kg, 03/19/24 15:05:00 EDT, Weight Dosing Start Date: 03/19/24 Status: Ordered Start: 12-10-2023 take 1 tablet by poncho twice daily Wellbutrin SR 150 mg Tab-ER 150 mg = 1 tab(s), Oral, BID, # 180 tab(s), Refills(s) 0, Pharmacy: [facility], 162.2, cm, 12/10/23 16:44:00 EST, Height/Length Dosing, 100.6, kg, 12/10/23 16:44:00 EST, Weight Dosing Start Date: 12/10/23 Status: Ordered cholecalciferol 1.25 mg oral capsule (7 sources) Vitamin D Start: 04-14-2024 cholecalcifero l 50,000 intl units oral capsule 1,250 mcg = 1 cap(s), Oral, q7day, # 12 cap(s), Refills(s) 0, Pharmacy: [facility], 162.2, cm, 04/14/24 14:03:00 EDT, Height/Length Dosing, 104.9, kg, 04/14/24 14:03:00 EDT, Weight Dosing Start Date: 04/14/24 Status: Ordered Start: 04-18-2022 End: 08-16-2022 take 1 capsule by mouth once daily at mealtime cholecalciferol 2000 intl units oral capsule 50 mcg = 1 cap(s), Oral, Daily, with food., X 60 day(s), # 90 cap(s), Refills(s) 1, Pharmacy: [facility], 163.8, cm, 04/18/22 15:45:00 EDT, Height/Length [...] day(s), # 14 cap(s), Refills(s) 0, Pharmacy: [facility], 167, cm, 08/21/23 14:00:00 EDT, Height/Length Dosing, 100, kg, 08/21/23 14:00:00 EDT, Weight Dosing Start Date: 08/21/23 Stop Date: 08/28/23 Status: Ordered DULoxetine 60 mg delayed release oral capsule (14 sources) Serotonin and Norepinephrine Reuptake Inhibitor Start: 03-19-2024 take 1 capsule by mouth once daily duloxetine 60 mg oral delayed release capsule 60 mg = 1 cap(s), Oral, Daily, # 90 cap(s), Refills(s) 0, Pharmacy: [facility], 162.2, cm, 03/19/24 15:05:00 EDT, Height/Length Dosing, 103.9, kg, 03/19/24 15:05:00 EDT, Weight Dosing Start Date: 03/19/24 Status: Ordered Start: 12-10-2023 take 1 capsule by [facility] once daily duloxetine 60 mg oral delayed release capsule 60 mg = 1 cap(s), Oral, Daily, # 90 cap(s), Refills(s) 0, Pharmacy: [facility], 162.2, cm, 12/10/23 16:44:00 EST, Height/Length Dosing, 100.6, kg, 12/10/23 16:44:00 EST, Weight Dosing Start Date: 12/10/23 Status: Ordered Start: 08-12-2023 take 1 capsule by [facility] once daily duloxetine 60 mg oral delayed release capsule 60 mg = 1 cap(s), Oral, Daily, # 90 cap(s), Refills(s) 0, Pharmacy: [facility], 163, cm, 10/21/22 13:43:00 EST, Height/Length Dosing, 98.4, kg, 10/21/22 13:43:00 EST, Weight Dosing Start Date: 08/12/23 Status: Ordered Start: 04-18-2022 take 1 capsule by [facility] once daily DULoxetine 60 mg Cap-EC 60 mg = 1 cap(s), Oral, Daily, # 90 cap(s), Refills(s) 3, Pharmacy: [facility], 163.8, cm, 04/18/22 15:45:00 EDT, Height/Length Dosing, 93.7, kg, 04/18/22 15:45:00 EDT, Weight Dosing Start Date: 04/18/22 Status: Ordered Start: 05-18-2020 take 1 capsule by [facility] once daily DULoxetine 40 mg oral delayed release capsule 40 mg, Oral, Daily, # 90 cap(s), Refills(s) 1, Pharmacy: [facility], 170.1, cm, 05/18/20 17:03:00 EDT, Height/Length Measured, 112.3, kg, 05/18/20 17:35:00 EDT, Weight Measured Start Date: 05/18/20 Status: Ordered DULoxetine 60 mg Cap-EC (2 sources) Start: 05-02-2022 take 1 capsule by mouth once daily DULoxetine 60 mg Cap-EC 60 mg = 1 cap(s), Oral, Daily, # 90 cap(s), Refills(s) 3, Pharmacy: [facility]/pharm[facility] #[id number], 163.8, cm, 04/18/22 15:45:00 EDT, Height/Length Dosing, 93.7, kg, 04/18/22 15:45:00 EDT, Weight Dosing Start Date: 05/02/22 Status: Ordered Start: 08-30-2021 take 1 capsule by [facility] once daily DULoxetine 60 mg Cap-EC 60 mg = 1 cap(s), Oral, Daily, # 30 cap(s), Refills(s) 6, Pharmacy: [facility], 170, cm, 08/30/21 14:36:00 EDT, Height/Length Dosing, 89.2, kg, 08/30/21 14:36:00 EDT, Weight Dosing Start Date: 08/30/21 Status: Ordered fluticasone propionate 0.05 mg/actuat metered dose nasal spray (2 sources) Corticosteroid Start: 10-21-2022 take 1 spray(s) nasal route twice daily Flonase 0.05 mg/inh [place] 1 spray(s), Nasal, BID, 16 gram, Refill(s) 0, each nostril, [facility], 163, cm, 12/19/22 13:43:00 EST, Height/Length Dosing, 98.4, kg, 10/21/22 13:43:00 EST, Weight Dosing Start Date: 10/21/22 Status: Ordered Start: 10-26-2020 fluticasone 0. 05 mg/inh Nasal [place] 2 spray(s), Nasal, Daily Congestion, 16 gram, Refill(s) 1, each nostril, [facility], 170, cm, 10/26/20 7:12:00 EST, Height/Length Dosing, 102, kg, 10/26/20 7:12:00 EST, Weight Dosing Start Date: 10/26/20 Status: Ordered fluticasone 0.05 mg/inh Nasal [place] (1 source) Start: 10-26-2020 fluticasone 0. 05 mg/inh Nasal [place] 2 spray(s), Nasal, Daily Congestion, 16 gram, Refill(s) 1, each nostril, [facility], 170, cm, 10/26/20 7:12:00 EST, Height/Length Dosing, 102, kg, 10/26/20 7:12:00 EST, Weight Dosing Start Date: 10/26/20 Status: Ordered hydroCHLOROthiazide 25 mg / lisinopril 20 mg oral tablet (8 sources) Thiazide Diuretic, Angiotensin Converting Enzyme Inhibitor Start: 04-14-2024 hydrochlorothiazide- lisinopril 25 mg-20 mg Tab 1 tab(s), Oral, Daily, 90 tab(s), Refill(s) 0, [facility], 162.2, cm, 04/14/24 14:03:00 EDT, Height/Length Dosing, 104.9, kg, 04/14/24 14:03:00 EDT, Weight Dosing Start Date: 04/14/24 Status: Ordered Start: 03-19-2024 hydrochlorothi azide-lisinopril 12.5 mg-10 mg Tab 1 tab(s), Oral, Daily, 90 tab(s), Refill(s) 0, [facility], 162.2, cm, 03/19/24 15:05:00 EDT, Height/Length Dosing, 103.9, kg, 03/19/24 15:05:00 EDT, Weight Dosing Start Date: 03/19/24 Status: Ordered Incruse Ellipta 62.5 mcg inhalation powder (2 sources) Start: 04-16-2024 Incruse Ellipta 62.5 mcg inhalation powder = 1 inh, Inhalation, q24hr, # 30 blister(s), Refills(s) 2, Pharmacy: [facility], 162.2, cm, 04/14/24 14:03:00 EDT, Height/Length Dosing, 104.9, kg, 04/14/24 14:03:00 EDT, Weight Dosing Start Date: 04/16/24 Status: Ordered Mucinex DM 30 mg-600 mg Tab-ER (1 source) Start: 10-21-2022 End: 10-24-2022 Mucinex DM 30 mg-600 mg Tab-ER 1 tab(s), Oral, q12hr Congestion for 3 day(s), 6 tab(s), Refill(s) 0, [facility], 163, cm, 10/21/22 13:43:00 EST, Height/Length Dosing, 98.4, kg, 10/21/22 13:43:00 EST, Weight Dosing Start Date: 10/21/22 Stop Date: 10/24/22 Status: Ordered 24 hr nicotine 0.292 mg/hr transdermal system (8 sources) Cholinergic Nicotinic Agonist Start: 03-19-2024 nicotine 7 mg/24 hr Transderm ER Film 1 patch(es), Topical, Daily, 30 EA, Refill(s) 1, [facility], 162.2, cm, 03/19/24 15:05:00 EDT, Height/Length Dosing, 103.9, kg, 03/19/24 15:05:00 EDT, Weight Dosing Start Date: 03/19/24 Status: Ordered ondansetron 4 mg oral tablet (10 sources) Serotonin-3 Receptor Antagonist Start: 12-10-2023 take 1 tablet by mouth every eight hours as needed for nausea Zofran 4 mg Tab 4 mg = 1 tab(s), Oral, q8hr, PRN Nausea/Vomiting, # 12 tab(s), Refills(s) 0, Pharmacy: [facility], 162.2, cm, 12/10/23 16:44:00 EST, Height/Length Dosing, 100.6, kg, 12/10/23 16:44:00 EST, Weight Dosing Start Date: 12/10/23 Status: Ordered tiotropium 0.018 mg inhalation powder (2 sources) Anticholinergic Start: 04-23-2024 Spiriva HandiHaler 18 mcg inhalation capsule 30 cap(s), 0 Refill(s), Refills(s) 0 Start Date: 04/23/24 Status: Ordered Start: 04-14-2024 take 1 capsule by in halation once daily Spiriva HandiHaler 18 mcg inhalation capsule 18 mcg = 1 cap(s), Inhalation, Daily, # 30 cap(s), Refills(s) 0, Pharmacy: [facility], 162.2, cm, 04/14/24 14:03:00 EDT, Height/Length Dosing, 104.9, kg, 04/14/24 14:03:00 EDT, Weight Dosing Start Date: 04/14/24 Status: Ordered Completed/Discontinued Medications Medication Drug Class(es) Dates Sig (Normalized) Sig (Original) Blood pressure cuff (3 sources) Start: 08-30-2021 Blood pressure cuff Blood pressure cuff, See Instructions, 1 EA, 0, Please dispense 1 blood pressure cuff., [facility], Supply, 170, cm, 08/30/21 14:36:00 EDT, Height/Length Dosing, 89.2, kg, 08/30/21 14:36:00 EDT, Weight Dosing Start Date: 08/30/21 Status: Ordered Problems Active Problems Problem Classification Problem Date Documented Date Episodic/Chronic Abdominal pain (16 sources) Flank pain; Translations: [Abdominal pain] Onset: 04-14-2024 08-24-2019 Episodic Anxiety disorders (16 sources) Anxiety; Translations: [Anxiety disorder] Onset: 04-17-2022 05-25-2019 Chronic Asthma (15 sources) Asthma 12-14-2018 Chronic Biliary tract disease (14 sources) Cholelithiasis without obstruction; Translations: [Calculus of gallbladder without cholecystitis without obstruction] Onset: 12-10-2023 Episodic Calculus of urinary tract (16 sources) Kidney stone; Translations: [Calculus of kidney] Onset: 12-10-2023 09-21-2019 Episodic Chronic obstructive pulmonary disease and bronchiectasis (7 sources) Pulmonary emphysema; Translations: [Emphysema, unspecified] Onset: 04-14-2024 Chronic Conditions associated with dizziness or vertigo (2 sources) Dizziness and giddiness; Translations: [Dizziness and giddiness] Onset: 05-26-2024 Episodic Conduction disorders (7 sources) Complete atrioventricular block; Translations: [Atrioventricular block, complete] Onset: 05-14-2024 Chronic Diabetes mellitus without complication (17 sources) Hyperglycemia; Translations: [Hyperglycemia, unspecified] Onset: 10-30-2023 05-25-2019 Episodic Diseases of mouth; excluding dental (1 source) Sialoadenitis; Translations: [Sialoadenitis, unspecified] Onset: 08-21-2023 Episodic Disorders of lipid metabolism (19 sources) Mixed hyperlipidemia; Translations: [Mixed hyperlipidemia] Onset: 04-17-2022 07-25-2020 Chronic E Codes: Fall (1 source) Fall; Translations: [Unspecified fall, initial encounter] Onset: 10-30-2023 Episodic Essential hypertension (20 sources) Benign essential hypertension; Translations: [Essential hypertension] Onset: 04-17-2022 05-25-2019 Chronic Fracture of upper limb (20 sources) Other intraarticular fracture of lower end of right radius, initial encounter for closed fracture; Translations: [Fracture of carpal bone] Onset: 09-10-2023 Episodic Comment on above: R distal radius fx Genitourinary symptoms and ill-defined conditions (15 sources) Urge incontinence of urine 04-28-2019 Chronic Genitourinary symptoms and ill-defined conditions (20 sources) Nocturia; Translations: [Urgent desire to urinate] 04-28-2019 Episodic Headache; including migraine (11 sources) Headache; Translations: [Headache, unspecified] Onset: 12-10-2023 Episodic Hypertension with complications and secondary hypertension (2 sources) Hypertensive heart disease without heart failure; Translations: [Hypertensive heart disease without heart failure] Onset: 10-02-2023 Chronic Immunizations and screening for infectious disease (2 sources) Vaccination given; Translations: [Encounter for immunization] Onset: 10-30-2023 Episodic Malaise and fatigue (11 sources) Fatigue; Translations: [Other fatigue] Onset: 12-10-2023 Episodic Mood disorders (19 sources) Depressive disorder; Translations: [Major depressive disorder] Onset: 04-17-2022 05-25-2019 Chronic Comment on above: Added per Anali freed response, per outpatient CDI policy. Nutritional deficiencies (17 sources) Vitamin D deficiency; Translations: [Vitamin D deficiency, unspecified] Onset: 04-18-2022 05-25-2019 Chronic Osteoarthritis (15 sources) Osteoarthritis of hip 08-09-2019 Chronic Other aftercare (2 sources) Encounter for other specified surgical aftercare; Translations: [Encounter for other specified surgical aftercare] Onset: 06-07-2024 Episodic Other bone disease and musculoskeletal deformities (15 sources) Osteopenia 06-03-2019 Episodic Other bone disease and musculoskeletal deformities (2 sources) Disorder of bone; Translations: [Other specified disorders of bone density and structure, unspecified site] Onset: 10-30-2023 Episodic Other connective tissue disease (4 sources) Pain in right foot; Translations: [PAIN IN RIGHT FOOT] Onset: 05-08-2022 Episodic Other diseases of kidney and ureters (15 sources) Hydronephrosis 09-21-2019 Episodic Other diseases of kidney and ureters (1 source) Urinary tract obstruction; Translations: [Hydronephrosis with renal and ureteral calculous obstruction] Onset: 03-19-2024 Episodic Other injuries and conditions due to external causes (1 source) Personal history of (healed) traumatic fracture; Translations: [Personal history of (healed) traumatic fracture] Onset: 10-03-2023 Episodic Other non-traumatic joint disorders (15 sources) Hip pain 05-25-2019 Episodic Other nutritional; endocrine; and metabolic disorders (16 sources) Body mass index 30+ - obesity 06-22-2020 Chronic Other nutritional; endocrine; and metabolic disorders (1 source) Obese class I; Translations: [Body mass index (BMI) 34.0-34.9, adult] Onset: 04-18-2022 Chronic Other nutritional; endocrine; and metabolic disorders (11 sources) Obesity; Translations: [Obesity, unspecified] Onset: 04-18-2022 Chronic Other nutritional; endocrine; and metabolic disorders (5 sources) Obese class II; Translations: [Body mass index (BMI) 37.0-37.9, adult] Onset: 10-21-2022 Chronic Other nutritional; endocrine; and metabolic disorders (4 sources) Morbid obesity; Translations: [Morbid (severe) obesity due to excess calories] Onset: 12-10-2023 Chronic Other nutritional; endocrine; and metabolic disorders (10 sources) Severe obesity 12-10-2023 Chronic Comment on above: Added per Anali freed response, per outpatient CDI policy. Other nutritional; endocrine; and metabolic disorders (5 sources) Body mass index 40+ - severely obese; Translations: [Body mass index (BMI) 40.0-44.9, adult] Onset: 04-27-2024 Chronic Other skin disorders (15 sources) Mucous membrane dryness 09-24-2021 Episodic Other upper respiratory disease (1 source) Nasal congestion; Translations: [Nasal congestion] Onset: 10-21-2022 Episodic Other upper respiratory disease (13 sources) Congestion of nasal sinus 10-21-2022 Episodic Other upper respiratory infections (1 source) Chronic sinusitis; Translations: [Chronic sinusitis, unspecified] Onset: 08-21-2023 Chronic Residual codes; unclassified (15 sources) Tobacco user 08-30-2021 Episodic Residual codes; unclassified (1 source) Patient encounter status; Translations: [Other specified health status] Onset: 04-18-2022 Episodic Residual codes; unclassified (1 source) Other specified postprocedural states; Translations: [Other specified postprocedural states] Onset: 10-03-2023 Episodic Residual codes; unclassified (1 source) Family history of cancer; Translations: [Family history of malignant neoplasm of other organs or systems] Onset: 12-10-2023 Episodic Residual codes; unclassified (10 sources) Family history of malignant neoplasm of thyroid 12-10-2023 Episodic Residual codes; unclassified (6 sources) Requires a tetanus booster 04-14-2024 Episodic Screening and history of mental health and substance abuse codes (10 sources) Tobacco use and exposure - finding 12-10-2023 Chronic Screening and history of mental health and substance abuse codes (4 sources) H/O: Disorder; Translations: [Personal history of nicotine dependence] Onset: 10-30-2023 Episodic Spondylosis; intervertebral disc disorders; other back problems (20 sources) Displacement of cervical intervertebral disc; Translations: [Cervical spondylosis] Onset: 12-10-2023 05-25-2019 Chronic Spondylosis; intervertebral disc disorders; other back problems (5 sources) Neck pain; Translations: [Cervicalgia] Onset: 04-18-2022 Episodic Substance-related disorders (20 sources) Smoker; Translations: [Nicotine dependence] Onset: 04-18-2022 05-18-2020 Chronic Comment on above: Added secondary to d ocumentation in Social History. Superficial injury; contusion (1 source) Abrasion, right lower leg, initial encounter; Translations: [Abrasion of skin of right lower leg] Onset: 04-14-2024 Episodic Systemic lupus erythematosus and connective tissue disorders (15 sources) Systemic sclerosis 03-22-2019 Chronic Comment on above: inactive Unclassified (15 sources) Clinical finding absent 08-30-2021 Unclassified (20 sources) Patient encounter status 12-10-2023 Unclassified (6 sources) Abrasion of skin of right lower leg 04-14-2024 Past or Other Problems Problem Classification Problem Date Documented Da te Episodic/Chronic Other screening for suspected conditions (not mental disorders or infectious disease) (3 sources) Encounter for other screening for malignant neoplasm of breast; Translations: [Screening for malignant neoplasm done] Onset: 10-02-2023 Episodic Unclassified (1 source) Exposure to 2019 novel coronavirus; Translations: [Contact with and (suspected) exposure to COVID19] Results Test Name Value Interpretation Reference Range Facil ity Office Visiton 06-29-2024 Follow-up visit [id number] Diana Zapata 1955 F Date Provider Department Center 06/29/2024 MIGUE WRIGHT JACKIE [facility] Family History Problem Relation Age of Onset Atrial fibrillation Mother Diabetes Mother Other Mother Transient ischemic attack Father Stroke Maternal Grandmother Family Status - Relation Status Age at Mother Father Maternal Grandmother Level of Service:01390 [place] OFFICE/OUTPATIENT NEW MODERATE MDM 45 MINUTES Normal [facility] General Surgery Office/Clini c Noteon 06-08-2024 General Surgery Office/Clinic Note General Surgery Office/Clinic Note Chief Complaint s/p cholecystectomy HPI Staff Melba is a 69 y.o. female here for s/p cholecystectomy done 05/26/24 Patient presented to [facility] ER on 05/26/24 with failed heart monitor- complete heart block Patient is healing well. s/p pacemaker done 05/26/24 History of Present Illness Consent: The patient or their guardian verbally consented to allow Harmony Michelle Robbie to record this visit. Melba Zapata is a 69-year-old female status post robotic assisted laparoscopic cholecystectomy performed on 05/26/2024. The patient was found to be in heart block in the postoperative and was referred to the emergency department where she was subsequently transferred to [facility] for a pacemaker placement on 05/27/2024. The patient has been doing well. She reports no pain from the operation, and did not require any pain medication. However, she continues to experience soreness from the pacemaker insertion procedure conducted at [facility]. She is scheduled to consult with her learning disabilities teacher who placed the pacemaker in [place] this coming Friday. Review of Systems ROS - Provider Constitutional: No fever, no sweats, no weight loss. Eyes: No glasses, no blurred vision, no visual loss. ENMT: No dentures, no hoarseness, no swallowing difficulties, no hearing loss, no ear infection(s), no nose bleeds. Cardiovascular: Normal blood pressure, no chest pain, regular heartbeat, no heart murmur. Respiratory: No shortness of breath, no cough, no asthma, no wheezing. Gastrointestinal: No nausea, no vomiting, no diarrhea, no constipation, no blood in stool, no change in bowel habits, no abdominal pain, no hepatitis. Genitourinary: No kidney stones, no urine infection, no dysuria. Musculoskeletal: No pain, no weakness. Skin: No changing moles, no rash, no skin lumps. Neurologic: No seizures, no epilepsy, no headache. Psychiatric: No emotional or psychiatric problem. Heme/Lymph: No bleeding problems, no anemia, no blood clots, no transfusions. Allergy/Immunologic: No swollen lymph nodes/glands, no IV drug abuse. Other: Additional ROS info: Except as noted in the above Review of Systems and in the History of Present Illness, all other systems have been reviewed and are negative or noncontributory. Physical Exam Vitals & Measurements HR: 72(Peripheral) BP: 103/71 HT: 65 in HT: 166 cm WT: 108 kg WT: 237.6 lb BMI: 39.19 Vitals & Measurements General: No acute distress Eyes: Normal conjunctiva, sclera clear, no scleral icterus, EOM intact, PERRLA. Neck: Trachea midline Respiratory: Respirations non labored. Cardiovascular: Regular rate and rhythm, Gastrointestinal: Soft, non-distended, no tenderness, no hepatosplenomegaly. Musculoskeletal: Normal gait, digits and nails without infection, nodes, cyanosis, clubbing. Skin: Incisions are clean, dry, intact, and healing well. There are still some Steri-Strips in place. Psychiatric/Neuro: Oriented to time, place, person, judgement normal, affect appropriate for age, insight intact, no focal deficits. Lymphatic: No cervical lymphadenopathy Assessment/Plan 1. Gall stones (K80.20: Calculus of gallbladder without cholecystitis without obstruction) The patient is a 69-year-old female status post robotic cholecystectomy for symptomatic cholelithiasis, status post pacemaker insertion for complete heart block in the perioperative setting. Portions of this record may have been created with voice recognition artificial intelligence software, specifically [employer], [employer] and or Gob[employer]. Substitutions may have occurred due to the inherent limitations of voice recognition and artificial intelligence software. ATTESTATION: Documentation services were performed after patient or guardian consented to allow [employer] to record this visit. MICKY digital media specialist and provider reviewed before signing. MICKY: LENARD Burnett. Follow-up No qualifying data available Follow up as needed and to consult with her learning disabilities teacher as regularly scheduled. Problem List/Past Medical History Ongoing Abrasion, right lower leg, initial encounter Benign essential HTN BMI 40.0-44.9, adult Cervical spine degeneration Class 3 severe obesity with serious comorbidity in adult Emphysema of lung Fatigue FHx: thyroid cancer Flank pain Fracture of right wrist with routine healing Gall stones Herniated cervical disc Hip pain, left Hydronephrosis Hyperglycemia Hyperlipidemia Kidney stones Major depressive disorder, recurrent, mild Need for tetanus booster Nocturia Osteopenia Patient had no falls in past year Personal history of tobacco use Screening for breast cancer Smoker Urge incontinence Urinary urgency Vitamin D deficiency Wellness examination Worsening headaches Historical Anxiety Asthma BMI 37.0-37.9, adult Sicca syndrome Sinus congestion Smoker Tobacco abuse Procedure/Surgic (more content not included)... Normal [facility] Comment on above: Result Comment: Elec tronically Signed By: Mildred CONSTANTINO, Aakash Briones\.br\Date and Time Signed: 06/08/24 08:54 EDT\.br\Electronically Co-Signed By: Hortencia Sterling\Date and Time Co-Signed: 06/04/24 11:16 EDT Office Visiton 06-07-2024 Follow-up visit [id number] Diana Zapata 1955 F Date Provider Department Center 06/07/2024 [facility] Family History Problem Relation Age of Onset Atrial fibrillation Mother Diabetes Mother Other Mother Transient ischemic attack Father Stroke Maternal Grandmother Family Status - Relation Status Age at Mother Father Maternal Grandmother Level of Service:[id number] [place] OFFICE/OUTPATIENT ESTABLISHED SF MDM 10 MIN Normal [facility] Ambulatory Visit Summaryon 0 06-04-2024 Ambulatory Visit Summary Ambulatory Visit Summary MELBA ZAPATA :1955 Visit Date:06/04/2024 Ambulatory Visit Instructions Your Diagnosis Gall stones Your Care Team Attending Physician - Mildred CONSTANTINO, Aakash Briones Primary Care Physician - Cameron SUGGS, Beartice Valdez This Is Your Medications List albuterol (Albuterol (Eqv-ProAir HFA) 90 mcg/inh inhalation aerosol) buPROPion (Wellbutrin SR 150 mg Tab-ER) cholecalciferol (cholecalciferol 50,000 intl units oral capsule) duloxetine (duloxetine 60 mg oral delayed release capsule) hydrochlorothiazide-lisin opril (hydrochlorothiazide-curtis nopril 25 mg-20 mg Tab) nicotine (nicotine 7 mg/24 hr Transderm ER Film) ondansetron (Zofran 4 mg Tab) Procedures Performed Cardiac pacemaker (05/26/2024), Laparoscopic cholecystostomy (05/26/2024), Open reduction of fracture (09/2023), Cataract extraction [...] Suspension of bladder, TUBAL LIGATION. Discharge Vitals Heart Rate (Peripheral) 72 Blood Pressure 103/71 Height 166 cm Height 65 in Weight 108 kg Weight 237.6 lb BMI 39.19 What to do next Scheduled Follow-Up Appointments Friday 2:00 PM EDT With: ALFREDO CONSTANTINO, Antonio Srivastava Where: [facility] [address] [place] [address] [place] [address]- Friday 2:30 PM EDT With: Where: [facility] [address] [place] [address] [place] [address]- 2023 2:00 PM EDT With: Beatrice Ingram Where: [facility] [address] [place] [address] [place] [address]- Medications What How Much When Why Instructions Unchanged albuterol (Albuterol (Eqv-ProAir HFA) 90 mcg/ inh inhalation aerosol) 2 Puffs Inhalation Every 6 hours Emphysema of lung Unchanged buPROPion (Wellbutrin SR 150 mg Tab-ER) 1 Tablets By Mouth 2 times a day Depression Other obesity Personal history of tobacco use Unchanged cholecalciferol (cholecalciferol 50,000 intl units oral capsule) 1 Capsules By Mouth Every 7 days Vitamin D deficiency Unchanged duloxetine (duloxetine 60 mg oral delayed release capsule) 1 Capsules By Mouth Every day Anxiety Depression Unchanged hydrochlorothiazide-lisin opril (hydrochlorothiazide-curtis nopril 25 mg-20 mg Tab) 1 Tablets By Mouth Every day Benign essential HTN Unchanged nicotine (nicotine 7 mg/ 24 hr Transderm ER Film) 1 Patches Topical Every day Personal history of tobacco use Unchanged ondansetron (Zofran 4 mg Tab) 1 Tablets By Mouth Every 8 hours as needed for Nausea/Vomiting Worsening headaches Allergies Contrast Dye (Swelling, Hives) adhesives (redness) penicillins (Passed out, Hives) Problems Ongoing - Any problem that you are currently receiving treatment for. Abrasion, right lower leg, initial encounter Benign essential HTN BMI 40.0-44.9, adult Cervical spine degeneration Class 3 severe obesity with serious comorbidity in adult Emphysema of lung Fatigue FHx: thyroid cancer Flank pain Fracture of right wrist with routine healing Gall stones Herniated cervical disc Hip pain, left Hydronephrosis Hyperglycemia Hyperlipidemia Kidney stones Major depressive disorder, recurrent, mild Need for tetanus booster Nocturia Osteopenia Patient had no falls in past year Personal history of tobacco use Screening for breast cancer Smoker Urge incontinence Urinary urgency Vitamin D deficiency Wellness examination Worsening headaches Historical - Any problem that you are no longer receiving treatment for. Anxiety Asthma BMI 37.0-37.9, adult Sicca syndrome Sinus congestion Smoker Tobacco abuse Patient Survey You may receive a survey via text or e-mail asking about your office visit. Please share your experience with us by completing your survey. We appreciate your feedback and thank you for choosing us for your care. (more content not included)... Normal [facility] 30on 05-29-2024 30 The patient is Moder ately Stable - Low risk of patient condition declining or worsening The patient's goals for the shift include rest and discharge The clinical goals for the shift include monitor vitals and safety Problem: Pain - Adult Goal: Verbalizes/displays adequate comfort level or baseline comfort level Outcome: Progressing Problem: Safety - Adult Goal: Free from fall injury Outcome: Progressing Problem: Discharge Planning Goal: Discharge to home or other facility with appropriate resources Outcome: Progressing Problem: Chronic Conditions and Co-morbidities Goal: Patient's chronic conditions and co-morbidity symptoms are monitored and maintained or improved Outcome: Progressing Normal [facility] BASIC METABOLIC PANELon 07-2 Anion gap [Moles/Vol] 11 mmol/L Normal - [facility] Comment on above: Performed By: #### L [id number] ####[facility] ([facility] [place] [address] Calcium [Mass/Vol] 8.7 mg/dL Normal 8.6-10.3 [facility] Comment on above: Performed By: #### L [id number] ####[facility] ([facility] [place] [address] Chloride [Moles/Vol] 106 mmol/L Normal 98-107 [facility] Comment on above: Performed By: #### L [id number] ####[facility] ([facility])[address] [place] [address] CO2 [Moles/Vol] 25 mmol/L Normal 21-31 [facility] Comment on above: Performed By: #### L [id number] ####[facility] ([facility])[address] [place] [address] Creatinine [Mass/Vol] 0.80 mg/dL Normal 0.60-1.20 [facility] Comment on above: Performed By: #### L [id number] ####[facility] ([facility])[address] [place] [address] GLOMERULAR FILTRATION RATE ML/MIN/1.73 SQ M.PREDICTED 79.7 mL/min/1.73m*2 Normal >60.0 [facility] Comment on above: Result Comment: The [facility]???s estimated glomerular filtration rate (eGFR) will no longer include consideration of race in its calculation. The National Kidney Foundation???s eGFR Task Force developed new recommendations for the estimation of the glomerular filtration rate in the [place] They recommend immediate implementation of the new equation refit without the race variable in all laboratories because the calculation does not include race. In addition to not including race in the calculation and reporting, it included diversity in its development, and has acceptable performance characteristics and potential consequences that do not disproportionately affect any one group of individuals. Performed By: #### L [id number] ####[facility] ([facility] [place] [address] Glucose [Mass/Vol] 126 mg/dL High 70-100 [facility] Comment on above: Performed By: #### L [id number] ####[facility] ([facility])[address] [place] [address] Potassium [Moles/Vol] 4.4 mmol/L Normal 3.5-5.1 [facility] Comment on above: Performed By: #### L [id number] ####[facility] ([facility])[address] [place] [address] Sodium [Moles/Vol] 138 mmol/L Normal 136-145 [facility] Comment on above: Performed By: #### L [id number] ####[facility] ([facility])[address] [place] [address] Urea nitrogen [Mass/Vol] 23 mg/dL Normal 7-25 [facility] Comment on above: Performed By: #### L [id number] ####[facility] ([facility])[address] [place] [address] UREA NITROGEN/CREATININE (MASS RATIO) IN SER/PLAS 28.8 Normal [facility] Comment on above: Performed By: #### L [id number] ####[facility] ([facility])[address] [place] [address] CBC WITH AUTO DIFFERENTIALon 05-29-2024 Basophils (Bld) [#/Vol] 0.03 10*3/uL Normal 0.00-0.20 [facility] Comment on above: Performed By: #### L [id number] ####[facility] ([facility])[address] [place] [address] Basophils/100 WBC (Bld) 0.2 % Normal 0.0-1.0 [facility] Comment on above: Performed By: #### L [id number] ####[facility] ([facility])[address] [place] [address] Eosinophils (Bld) [#/Vol] 0.02 10*3/uL Normal 0.00-0.50 [facility] Comment on above: Performed By: #### L [id number] ####[facility] ([facility])[address] [place] [address] Eosinophils/100 WBC (Bld) 0.1 % Normal 0.0-6.0 [facility] Comment on above: Performed By: #### L [id number] ####[facility] ([facility])[address] [place] [address] Erythrocyte distribution width (RBC) [Ratio] 13.0 % Normal 11.5-15.0 [facility] Comment on above: Performed By: #### L [id number] ####[facility] ([facility])[address] [place] [address] ERYTHROCYTE MEAN CORPUSCULAR HEMOGLOBIN CONCENTRATION (G/DL) BY AUTOMATED 32.2 g/dL Normal 32.0-35.0 [facility] Comment on above: Performed By: #### L [id number] ####[facility] ([facility])[address] [place] [address] Hematocrit (Bld) [Volume fraction] 42.6 % Normal 36.0-48.0 [facility] Comment on above: Performed By: #### L [id number] ####[facility] ([facility])[address] [place] [address] Hemoglobin (Bld) [Mass/Vol] 13.7 g/dL Normal 12.0-15.0 [facility] Comment on above: Performed By: #### L [id number] ####[facility] ([facility])[address] [place] [address] Immature granulocytes (Bld) [#/Vol] 0.09 10*3/uL Normal 0.00-0.20 [facility] Comment on above: Performed By: #### L [id number] ####[facility] ([facility])[address] [place] [address] Immature granulocytes/100 WBC (Bld) 0.6 % Normal 0.0-1.0 [facility] Comment on above: Performed By: #### L [id number] ####[facility] ([facility])[address] [place] [address] Lymphocytes (Bld) [#/Vol] 1.22 10*3/uL Normal 1.20-4.00 [facility] Comment on above: Performed By: #### L [id number] ####[facility] ([facility])[address] [place] [address] Lymphocytes/100 WBC (Bld) 8.6 % Low 20.0-45.0 [facility] Comment on above: Performed By: #### L [id number] ####[facility] ([facility])[address] [place] [address] MCH (RBC) [Entitic mass] 31.4 pg Normal 27.0-33.0 [facility] Comment on above: Performed By: #### L [id number] ####[facility] ([facility])[address] [place] [address] MCV (RBC) [Entitic vol] 97.5 fL Normal 82.0-98.0 [facility] Comment on above: Performed By: #### L [id number] ####[facility] ([facility])[address] [place] [address] Monocytes (Bld) [#/Vol] 0.93 10*3/uL Normal 0.10-1.00 [facility] Comment on above: Performed By: #### L [id number] ####[facility] ([facility])[address] [place] [address] Monocytes/100 WBC (Bld) 6.6 % Normal 5.0-12.0 [facility] Comment on above: Performed By: #### L [id number] ####[facility] ([facility])[address] [place] [address] Neutrophils (Bld) [#/Vol] 11.82 10*3/uL High 1.60-7.60 [facility] Comment on above: Performed By: #### L [id number] ####[facility] ([facility])[address] [place] [address] Neutrophils/100 WBC (Bld) 83.9 % High 40.0-72.0 [facility] Comment on above: Performed By: #### L [id number] ####[facility] ([facility])[address] [place] [address] NRBC (PER 100 WBCS) BY AUTOMATED COUNT 0.0 % Normal 0 [facility] Comment on above: Performed By: #### L [id number] ####[facility] ([facility])[address] [place] [address] PLATELETS (10*3/UL) IN BLOOD AUTOMATED COUNT 262 10*3/uL Normal 150-400 [facility] Comment on above: Performed By: #### L [id number] ####[facility] ([facility])[address] [place] [address] RBC (Bld) [#/Vol] 4.37 10*6/uL Normal 3.80-5.00 [facility] Comment on above: Performed By: #### L [id number] ####[facility] ([facility])[address] [place] [address] WBC (Bld) [#/Vol] 14.11 10*3/uL High 4.00-10.60 [facility] Comment on above: Performed By: #### L [id number] ####[facility] ([facility])[address] [place] [address] DSon 05-29-2024 DS Admit Date 05/27/2024 Discharge Date 05/29/2024 Discharge Diagnosis Intermittent complete heart block, fluctuates between 1st degree, Mobitz 1 and complete heart block on 30 d event monitor, symptomatic s/p pacemaker with biotronik 05/28 Essential hypertension Gallstones s/p cholecystectomy 05/26/2024 Current smoker Obese class 2/severe obesity - BMI 37 Discharge Disposition Home or Self Care () Discharge Medications Your medication list CONTINUE taking these medications Instructions Last Dose Given Next Dose Due albuterol 90 mcg/actuation inhaler cholecalciferol 1,250 mcg (50,000 unit) capsule Commonly known as: Vitamin D-[address] capsule Commonly known as: Cymbalta HYDROcodone-acetaminophen 5-325 mg tablet Commonly known as: [place] lisinopriL-hydrochlorothi azide 20-25 mg tablet nicotine 21 mg/24 hr patch Commonly known as: Nicoderm CQ Wellbutrin SR 150 mg 12 hr tablet Generic drug: buPROPion SR Activity -Continue post-device precautions for 4 weeks after procedure including no driving, lifting left elbow above left shoulder, lifting >5# with left arm. , -No showering until we see you in clinic. Keep dressing in place, we will remove at your follow-up appointment. Keep incision clean and dry. No driving for four weeks or until cleared by cards Diet Continue on the same type of diet and foods as you were eating before your admission. Drink plenty of water. Allergies Iodinated contrast media, Latex, and Penicillins Hospital Course History of Present Illness Melba Zapata is an 69 y.o. female who came from [facility] with concerns for complete heart block. Patient reports this all started when she had broken her wrist, she had EKG done at that time which showed an abnormality leading her to have an echocardiogram done With our cardiology team in [place]. During her appointment to go over her echo results which were normal, her EKG showed that she was in a heart block, so she was prescribed a Holter monitor. Yesterday she presented to [facility] for a planned cholecystectomy 2/2 gallstones. During the procedure it was reported that they had to give her atropine due to low heart rates. Her physician there then received a call with results of her Holter monitor saying that there were signs of complete heart block and requested transfer to [facility] for evaluation by our electrophysiology service. Patient reports she has had some shortness of breath with exertion, no chest pain. No nausea or vomiting. She reports sometimes having dizziness with the shortness of breath. She denies any heart failure history, she is a current smoker. She reports she has some discomfort around the laparoscopic a sites from her surgery, however no abdominal pain. Complete heart block - The patient is here because of bradycardia and concern about complete heart block. Earlier this month the patient was evaluated by cardiology for clearance for cholecystectomy and noted to have Mobitz 1 on her EKG. She was provided with the event monitor which reported to me be having a complete heart block. She had cholecystectomy yesterday and reportedly she went into complete heart block during the surgery requiring atropine. Also it was reported on the monitor that she went to second-degree 2-1 AV block with heart rate dropping to the 30s. Her EKG from 05/14/2024 showed Mobitz 1, her rhythm on the monitor now shows sinus rhythm with significant first-degree AV block - cardiology did see and she had a pacemaker placed on 05/28 - cardiology did clear her for discharge on 05/29 - she does have follow up arranged on 06/07 Gallstones s/p cholecystectomy 05/22/2024 - follow up with her surgeon as scheduled Pertinent Physical Exam At Time of Discharge Physical Exam Constitutional: Appearance: Normal appearance. HENT: Head: Normocephalic. Mouth/Throat: Mouth: Mucous membranes are dry. Eyes: Extraocular Movements: Extraocular movements intact. Pupils: Pupils are equal, round, and reactive to light. Cardiovascular: Rate and Rhythm: Normal rate and regular rhythm. Comments: Incision C/D/I Pulmonary: Effort: Pulmonary effort is normal. Breath sounds: Normal breath sounds. Abdominal: General: Abdomen is flat. Palpations: Abdomen is soft. Comments: Incision - C/D/I. Steri strips in place. Some mild ecchymosis at sites. No erythema Skin: General: Skin is warm. Neurological: General: No focal deficit present. Mental Status: She is alert. Psychiatric: Mood and Affect: Mood normal. Lab Results Labs Reviewed CBC WITH AUTO DIFFERENTIAL - Abnormal Result Value Auto WBC 11.71 (*) RBC 4.49 Hemoglobin 13.9 Hematocrit 42.5 MCV 94.7 MCH 31.0 MCHC 32.7 RDW 13.3 Neutrophils Relative 69.1 Lymphocytes Relative 20.2 Monocytes Relative 7.3 Eosinophils Relative 2.8 Basophils Relative 0.4 Neutrophils Absolute 8.08 (*) Lymphocytes (more content not included)... Normal [facility] MAGNESIUMon 05-29-2024 Magnesium [Mass/Vol] 2.0 mg/dL Normal 1.9-2.7 [facility] Comment on above: Performed By: #### L [id number] #### [facility] ([facility]) [address] [place] [address] PHOSPHORUSon 05-29-2024 Magnesium [Mass/Vol] 3.1 mg/dL Normal 2.5-5.0 [facility] Comment on above: Performed By: #### L [id number] #### [facility] ([facility]) [address] [place] [address] 30on 05-28-2024 30 The patient is Moder ately Stable - Low risk of patient condition declining or worsening The patient's goals for the shift include rest The clinical goals for the shift include vss, comfort Problem: Pain - Adult Goal: Verbalizes/displays adequate comfort level or baseline comfort level Outcome: Progressing Problem: Safety - Adult Goal: Free from fall injury Outcome: Progressing Flowsheets (Taken 05/28/20241999) Free from fall injury: Assess patient frequently for physical needs Identify cognitive and physical deficits and behaviors that affect risk of falls [place] fall precautions as indicated by assessment Educate patient/family on patient safety, including physical limitations Instruct patient to call for assistance with activity based on assessment Consider OT/PT consult to assist with strengthening/mobility Problem: Discharge Planning Goal: Discharge to home or other facility with appropriate resources Outcome: Progressing Flowsheets (Taken 05/28/20241999) Discharge to home or other facility with appropriate resources: Identify barriers to discharge with patient and caregiver Arrange for needed discharge resources and transportation as appropriate Identify discharge learning needs (meds, wound care, etc) Refer to discharge planning if patient needs post-hospital services based on physician order or complex needs related to functional status, cognitive ability or social support system Problem: Chronic Conditions and Co-morbidities Goal: Patient's chronic conditions and co-morbidity symptoms are monitored and maintained or improved Outcome: Progressing Flowsheets (Taken 05/28/20241999) Care Plan - Patient's Chronic Conditions and Co-Morbidity Symptoms are Monitored and Maintained or Improved: Monitor and assess patient's chronic conditions and comorbid symptoms for stability, deterioration, or improvement Collaborate with multidisciplinary team to address chronic and comorbid conditions and prevent exacerbation or deterioration Update acute care plan with appropriate goals if chronic or comorbid symptoms are exacerbated and prevent overall improvement and discharge Normal [facility] BASIC METABOLIC PANELon 07-2 Anion gap [Moles/Vol] 11 mmol/L Normal 7-20 [facility] Comment on above: Performed By: #### L [id number] #### [facility] ([facility]) [address] [place] [address] Calcium [Mass/Vol] 8.5 mg/dL Low 8.6-10.3 [facility] Comment on above: Performed By: #### L [id number] #### [facility] ([facility]) [address] [place] [address] Chloride [Moles/Vol] 107 mmol/L Normal 98-107 [facility] Comment on above: Performed By: #### L [id number] #### [facility] ([facility]) [address] [place] [address] CO2 [Moles/Vol] 23 mmol/L Normal 21-31 [facility] Comment on above: Performed By: #### L [id number] #### [facility] ([facility]) [address] [place] [address] Creatinine [Mass/Vol] 0.83 mg/dL Normal 0.60-1.20 [facility] Comment on above: Performed By: #### L [id number] #### [facility] ([facility]) [address] [place] [address] GLOMERULAR FILTRATION RATE ML/MIN/1.73 SQ M.PREDICTED 76.3 mL/min/1.73m*2 Normal >60.0 [facility] Comment on above: Result Comment: The [facility]???s estimated glomerular filtration rate (eGFR) will no longer include consideration of race in its calculation. The National Kidney Foundation???s eGFR Task Force developed new recommendations for the estimation of the glomerular filtration rate in the [place] They recommend immediate implementation of the new equation refit without the race variable in all laboratories because the calculation does not include race. In addition to not including race in the calculation and reporting, it included diversity in its development, and has acceptable performance characteristics and potential consequences that do not disproportionately affect any one group of individuals. Performed By: #### L [id number] #### [facility] ([facility]) [address] [place] [address] Glucose [Mass/Vol] 104 mg/dL High 70-100 [facility] Comment on above: Performed By: #### L [id number] #### [facility] ([facility]) [address] [place] [address] Potassium [Moles/Vol] 3.6 mmol/L Normal 3.5-5.1 [facility] Comment on above: Performed By: #### L [id number] #### [facility] ([facility]) [address] [place] [address] Sodium [Moles/Vol] 137 mmol/L Normal 136-145 [facility] Comment on above: Performed By: #### L [id number] #### [facility] [address] [place] [address] Urea nitrogen [Mass/Vol] 21 mg/dL Normal 7-25 [facility] Comment on above: Performed By: #### L [id number] #### [facility] ([facility]) [address] [place] [address] UREA NITROGEN/CREATININE (MASS RATIO) IN SER/PLAS 25.3 Normal [facility] Comment on above: Performed By: #### L [id number] #### [facility] ([facility]) [address] [place] [address] CBCon 05-28-2024 Erythrocyte distribution width (RBC) [Ratio] 13.2 % Normal 11.5-15.0 [facility] Comment on above: Performed By: #### L [id number] #### [facility] [address] [place] [address] ERYTHROCYTE MEAN CORPUSCULAR HEMOGLOBIN CONCENTRATION (G/DL) BY AUTOMATED 31.7 g/dL Low 32.0-35.0 [facility] Comment on above: Performed By: #### L [id number] #### [facility] [address] [place] [address] Hematocrit (Bld) [Volume fraction] 43.2 % Normal 36.0-48.0 [facility] Comment on above: Performed By: #### L [id number] #### [facility] [address] [place] [address] Hemoglobin (Bld) [Mass/Vol] 13.7 g/dL Normal 12.0-15.0 [facility] Comment on above: Performed By: #### L [id number] #### [facility] ([facility]) [address] [place] [address] MCH (RBC) [Entitic mass] 30.8 pg Normal 27.0-33.0 [facility] Comment on above: Performed By: #### L [id number] #### [facility] ([facility]) [address] [place] [address] MCV (RBC) [Entitic vol] 97.1 fL Normal 82.0-98.0 [facility] Comment on above: Performed By: #### L [id number] #### [facility] ([facility]) [address] [place] [place] [address] PLATELETS (10*3/UL) IN BLOOD AUTOMATED COUNT 231 10*3/uL Normal 150-400 [facility] Comment on above: Performed By: #### L [id number] #### [facility] ([facility]) [address] [place] [address] RBC (Bld) [#/Vol] 4.45 10*6/uL Normal 3.80-5.00 [facility] Comment on above: Performed By: #### L [id number] #### [facility] ([facility]) [address] [place] [address] WBC (Bld) [#/Vol] 9.28 10*3/uL Normal 4.00-10.60 [facility] Comment on above: Performed By: #### L [id number] #### [facility] ([facility]) [address] [place] [address] Surgical Pathology Reporton 05-28-2024 Surgical Pathology Report [address] [place] [address]- Surgical Pathology Report Collected Date/Time: 05/26/2024 08:23 EDT Pathologist: Mark Yo MD Received Date/Time: 05/26/2024 10:24 EDT Mildred CONSTANTINO, Aakash Levy MD, Aakash Kovacs Surgical Pathology Report - 05/28/2024 13:36 EDT - Auth (Verified) Final Diagnosis GALLBLADDER, CHOLECYSTECTOMY: - Cholelithiasis and focal mild chronic cholecystitis. (Electronic Signature) Yan. Sanaz MD 05/28/2024 13:36 Clinical Information Pre-Op Diagnosis: Gallstones Procedure: Robotic assisted laparoscopic cholecystectomy Post-Op Diagnosis: Gallstones Specimen(s) Received Gallbladder Gross Description Received in formalin labeled with patient name, number, and gallbladder is a previously opened gallbladder measuring 6.5 x 2.5 x 1.5 cm. Serosal surface is smooth and glistening. A white plastic surgical clip is removed from the cystic duct which measures 0.4 cm in diameter and is inked blue. The gallbladder contains a scant amount of yellow/red-tinged bile, and a single round dark green/black rough gallstone measuring up to 1.5 cm in diameter. The wall of the gallbladder measures up to 0.2 cm in thickness. The mucosal surface is lloyd/pink and velvety. [employer] Line sections are submitted in two cassettes: 1 - Cystic duct 2 - Sections of remainder of gallbladder (DC) DC:[facility] Microscopic Description Microscopic examination performed unless gross only specified. Normal [facility] Comment on above: Performed By: #### 4 [id number] #### [facility] [address] [place] [address] CBC WITH AUTO DIFFERENTIALon 05-27-2024 Basophils (Bld) [#/Vol] 0.05 10*3/uL Normal 0.00-0.20 [facility] Comment on above: Performed By: #### L [id number] #### [facility] ([facility]) [address] [place] [address] Basophils/100 WBC (Bld) 0.4 % Normal 0.0-1.0 [facility] Comment on above: Performed By: #### L [id number] #### [facility] ([facility]) [address] [place] [address] Eosinophils (Bld) [#/Vol] 0.33 10*3/uL Normal 0.00-0.50 [facility] Comment on above: Performed By: #### L [id number] #### [facility] ([facility]) [address] [place] [address] Eosinophils/100 WBC (Bld) 2.8 % Normal 0.0-6.0 [facility] Comment on above: Performed By: #### L [id number] #### [facility] ([facility]) [address] [place] [address] Erythrocyte distribution width (RBC) [Ratio] 13.3 % Normal 11.5-15.0 [facility] Comment on above: Performed By: #### L [id number] #### [facility] ([facility]) [address] [place] [address] ERYTHROCYTE MEAN CORPUSCULAR HEMOGLOBIN CONCENTRATION (G/DL) BY AUTOMATED 32.7 g/dL Normal 32.0-35.0 [facility] Comment on above: Performed By: #### L [id number] #### [facility] ([facility]) [address] [place] [address] Hematocrit (Bld) [Volume fraction] 42.5 % Normal 36.0-48.0 [facility] Comment on above: Performed By: #### L [id number] #### [facility] ([facility]) [address] [place] [address] Hemoglobin (Bld) [Mass/Vol] 13.9 g/dL Normal 12.0-15.0 [facility] Comment on above: Performed By: #### L [id number] #### [facility] ([facility]) [address] [place] [address] Immature granulocytes (Bld) [#/Vol] 0.02 10*3/uL Normal 0.00-0.20 [facility] Comment on above: Performed By: #### L [id number] #### [facility] [address] [place] [address] Immature granulocytes/100 WBC (Bld) 0.2 % Normal 0.0-1.0 [facility] Comment on above: Performed By: #### L [id number] #### [facility] ([facility]) [address] [place] [address] Lymphocytes (Bld) [#/Vol] 2.37 10*3/uL Normal 1.20-4.00 [facility] Comment on above: Performed By: #### L [id number] #### [facility] ([facility]) [address] [address] Lymphocytes/100 WBC (Bld) 20.2 % Normal 20.0-45.0 [facility] Comment on above: Performed By: #### L [id number] #### [facility] ([facility]) [address] [place] [address] MCH (RBC) [Entitic mass] 31.0 pg Normal 27.0-33.0 [facility] Comment on above: Performed By: #### L [id number] #### [facility] ([facility]) [address] [address] MCV (RBC) [Entitic vol] 94.7 fL Normal 82.0-98.0 [facility] Comment on above: Performed By: #### L [id number] #### [facility] ([facility]) [address] [place] [address] Monocytes (Bld) [#/Vol] 0.86 10*3/uL Normal 0.10-1.00 [facility] Comment on above: Performed By: #### L [id number] #### [facility] ([facility]) [address] [address] Monocytes/100 WBC (Bld) 7.3 % Normal 5.0-12.0 [facility] Comment on above: Performed By: #### L [id number] #### [facility] [address] [address] Neutrophils (Bld) [#/Vol] 8.08 10*3/uL High 1.60-7.60 [facility] Comment on above: Performed By: #### L [id number] #### [facility] [address] [place] [address] Neutrophils/100 WBC (Bld) 69.1 % Normal 40.0-72.0 [facility] Comment on above: Performed By: #### L [id number] #### [facility] ([facility]) [address] [place] [address] NRBC (PER 100 WBCS) BY AUTOMATED COUNT 0.0 % Normal 0 [facility] Comment on above: Performed By: #### L [id number] #### [facility] ([facility]) [address] [place] [address] PLATELETS (10*3/UL) IN BLOOD AUTOMATED COUNT 246 10*3/uL Normal 150-400 [facility] Comment on above: Performed By: #### L [id number] #### [facility] ([facility]) [address] [place] [address] RBC (Bld) [#/Vol] 4.49 10*6/uL Normal 3.80-5.00 [facility] Comment on above: Performed By: #### L [id number] #### [facility] ([facility]) [address] [place] [address] WBC (Bld) [#/Vol] 11.71 10*3/uL High 4.00-10.60 [facility] Comment on above: Performed By: #### L [id number] #### [facility] ([facility]) [address] [place] [address] COMPREHENSIVE METABOLIC PANE Joel 05-27-2024 Albumin [Mass/Vol] 3.9 g/dL Normal 3.5-5.7 [facility] Comment on above: Performed By: #### L [id number] #### [facility] ([facility]) [address] [place] [address] ALP [Catalytic activity/Vol] 74 U/L Normal 34-104 [facility] Comment on above: Performed By: #### L [id number] #### [facility] ([facility]) [address] [place] [address] ALT [Catalytic activity/Vol] 22 U/L Normal 7-52 [facility] Comment on above: Performed By: #### L [id number] #### [facility] ([facility]) [address] [place] [address] Anion gap [Moles/Vol] 7 mmol/L Normal 7-20 [facility] Comment on above: Performed By: #### L [id number] #### [facility] [address] [place] [address] AST [Catalytic activity/Vol] 20 U/L Normal 13-39 [facility] Comment on above: Performed By: #### L [id number] #### [facility] [address] [place] [address] Bilirubin [Mass/Vol] 0.6 mg/dL Normal 0.3-1.0 [facility] Comment on above: Performed By: #### L [id number] #### [facility] ([facility]) [address] [place] [address] Calcium [Mass/Vol] 8.8 mg/dL Normal 8.6-10.3 [facility] Comment on above: Performed By: #### L [id number] #### [facility] ([facility] [address] [place] [address] Chloride [Moles/Vol] 106 mmol/L Normal 98-107 [facility] Comment on above: Performed By: #### L [id number] #### [facility] ([facility] [address] [place] [address] CO2 [Moles/Vol] 30 mmol/L Normal 21-31 [facility] Comment on above: Performed By: #### L [id number] #### [facility] ([facility]) [address] [place] [address] Creatinine [Mass/Vol] 0.90 mg/dL Normal 0.60-1.20 [facility] Comment on above: Performed By: #### L [id number] #### [facility] ([facility]) [address] [place] [address] GLOMERULAR FILTRATION RATE ML/MIN/1.73 SQ M.PREDICTED 69.2 mL/min/1.73m*2 Normal >60.0 [facility] Comment on above: Result Comment: The [facility]???s estimated glomerular filtration rate (eGFR) will no longer include consideration of race in its calculation. The National Kidney Foundation???s eGFR Task Force developed new recommendations for the estimation of the glomerular filtration rate in the [place] They recommend immediate implementation of the new equation refit without the race variable in all laboratories because the calculation does not include race. In addition to not including race in the calculation and reporting, it included diversity in its development, and has acceptable performance characteristics and potential consequences that do not disproportionately affect any one group of individuals. Performed By: #### L [id number] #### [facility] ([facility]) [address] [place] [address] Glucose [Mass/Vol] 94 mg/dL Normal 70-100 [facility] Comment on above: Performed By: #### L [id number] #### [facility] ([facility]) [address] [place] [address] Potassium [Moles/Vol] 3.7 mmol/L Normal 3.5-5.1 [facility] Comment on above: Performed By: #### L [id number] #### [facility] ([facility]) [address] [place] [address] Protein [Mass/Vol] 6.2 g/dL Normal 6.0-8.3 [facility] Comment on above: Performed By: #### L [id number] #### [facility] ([facility]) [address] [place] [address] Sodium [Moles/Vol] 139 mmol/L Normal 136-145 [facility] Comment on above: Performed By: #### L [id number] #### [facility] ([facility]) [address] [place] [address] Urea nitrogen [Mass/Vol] 21 mg/dL Normal 05-27 [facility] Comment on above: Performed By: #### L [id number] #### [facility] ([facility]) [address] [place] [address] UREA NITROGEN/CREATININE (MASS RATIO) IN SER/PLAS 23.3 Normal [facility] Comment on above: Performed By: #### L [id number] #### [facility] ([facility]) [address] [place] [address] CONSULTon 05-27-2024 CONSULT ----- ----- Attestation signed by Dianne Benson MD at 05/27/2024 5:02 PM I personally saw and examined the patient on the same date of service as resident/fellow Dr David. I discussed the findings and therapeutic plan with the resident/fellow Dr David. I agree with the documentation, except for any edits/updates below. Teaching Physician's Revisions: None The patient is here because of bradycardia and concern about complete heart block. Earlier this month the patient was evaluated by cardiology for clearance for cholecystectomy and noted to have Mobitz 1 on her EKG. She was provided with the event monitor which reported to me be having a complete heart block. The patient denies any history of syncope or near syncope but sometimes she feels light headed little bit and sometimes she feels tingling in her lips. She had cholecystectomy yesterday and reportedly she went into complete heart block during the surgery requiring atropine. Also it was reported on the monitor that she went to second-degree 2-1 AV block with heart rate dropping to the 30s. Patient complains also of generalized fatigue. She does not know if she has sleep apnea. She never been told that she snores or stops breathing during the night. Her EKG from 05/14/2024 showed Mobitz 1, her rhythm on the monitor now shows sinus rhythm with significant first-degree AV block, I reviewed the available strips from event monitor and in my opinion they represent atrial tachycardia with variable A-V conduction. I do not have recordings from her monitor in [facility] or during the surgery. Examination is unremarkable. Echo from 05/04/2024 showed moderate left ventricle hypertrophy but normal left ventricle systolic function mildly elevated PAP Plan: Continue to monitor rhythm. I think we should obtain the rhythm strips from [facility] and review to confirm that she had second-degree AV block with significant bradycardia as reported. Apparently Dr. Gaston was called in that regard and we will check with him if he reviewed those strips. Will check thyroid function. Consider sleep study in the future Dianne Benson MD, [facility] ----- Cardiology Consult Note Reason for Consult: complete heart block HPI: Melba Zapata is a 69 y.o. female with Pmh of smoking, depression, HTN, who was transferred from [facility] for cardiology evaluation d/t concern for heart block. Pt was seen initially by cardiology on 05/14 for clearance for cholycestectomy. Her EKG noted mobitz 1 and she was given event monitor to wear d/t symptoms of lightheadedness. Per report TTE was normal. Her event monitor showed a strip of questionable mobitz type 2 vs complete heart block for which she was called to be admitted to [facility] for PPM placement. She also happened to undergo her elective cholecystectomy on 05/26 and reportedly went into CHB requiring atropine. She tells me she has had weight gain and fatigue over last few months, states thyroid tests were normal previously but no records available. Denies recent medication changes except lisinopril. She has had episodic lightheadedness with no apparent trigger, SOB on climbing less than half a flight of stairs, no syncope, no chest pain, no palpitations. Currently in 1st degree AV block sinus rhythm, BP wnl. Labs wnl. Cardiology ROS: GENERAL: Denies fever, chills, night sweats, weight loss. CARDIOVASCULAR: Denies chest pain, exertional dyspnea, orthopnea/PND, lower extremity edema, palpitations, does have lightheadedness/dizziness , no syncope. RESPIRATORY: Denies SOB, coughing, wheezing Past Medical History She has a past medical history of Heart block and Hypertension. Surgical History She has a past surgical history that includes Replacement total hip oncologic; Foot surgery; and Cholecystectomy. Social History She reports that she has been smoking cigarettes. She has been smoking an average of .25 packs per day. She has never used smokeless tobacco. She reports that she does not currently use alcohol. No history on file for drug use. Family History Family History Problem Relation Name Age of Onset Atrial fibrillation Mother Diabetes Mother Other (end stage renal disease) Mother Transient ischemic attack Father Stroke Maternal Grandmother Allergies Iodinated contrast media, Latex, and Penicillins Medications Medications Prior to Admission Medication Sig Dispense Refill Last Dose albuterol 90 mcg/actuation inhaler INHALE 2 PUFFS EVERY 6 HOURS Past Month cholecalciferol (Vitamin D-3) 1,250 mcg (50,000 unit) capsule Take 1,250 mcg by mouth 1 (one) time per week. Takes on friday Past Week DULoxetine (Cymbalta) [address] capsule Take 60 mg by mouth in the morning. Do not crush or chew. Past Week HYDROcodone-acetaminophen (Dassel) 5 (more content not included)... Normal [facility] ED Clinical Summaryon 2023 ED Clinical Summary ED Clinical Summary [address] [address] ED Clinical Summary Person Information Name: MELBA ZAPATA/[facility] Age: 69 Years : 1955 Sex: Female Language: Cameroonian PCP: Beatrice Ingram Marital Status: Visit Id: Visit Reason: Abnormal diagnostic test; Medical problem - major; Dizziness; SENT BY DR GUPTA Speciality: Acuity: 2 Enc Type: Emergency Med Service: Emergency Arrival: 05/26/2024 12:32:31 Discharge: 05/27/2024 09:50:00 LOS: 000 21:18 Checkin: 05/26/2024 12:32:31 Checkout: 05/27/2024 09:50:00 Dispo Type: Short-Term Hosp as IP EVENTS: Event Name Event Status Request Date/Time Start Date/Time Complete Date/Time Arrive Complete 05/26/2024 12:32:31 05/26/2024 12:32:31 05/26/2024 12:32:31 Document Home Meds Request 05/26/2024 12:32:31 Triage Complete 05/26/2024 12:32:31 05/26/2024 12:48:30 05/26/2024 12:48:30 Bed Assign Complete 05/26/2024 12:42:26 05/26/2024 12:42:26 05/26/2024 12:42:26 Dr Exam Complete 05/26/2024 12:42:26 05/26/2024 13:02:48 05/26/2024 13:02:48 RN Exam Complete 05/26/2024 12:42:26 05/26/2024 14:20:55 05/26/2024 14:20:55 EKG Complete 05/26/2024 12:47:26 05/26/2024 12:48:32 Registration Complete 05/26/2024 13:02:48 05/26/2024 13:04:52 05/26/2024 13:04:52 Reg Complete Request 05/26/2024 13:04:52 Reg Bed Request Complete 05/26/2024 13:04:52 05/26/2024 13:04:52 05/26/2024 13:04:52 Dr Exam Complete 05/26/2024 13:06:36 05/26/2024 13:06:36 05/26/2024 13:06:36 Registration Start 05/26/2024 13:06:36 05/26/2024 16:14:49 Pending Labs Complete 05/26/2024 13:16:30 05/26/2024 15:11:50 Lab Complete 05/26/2024 13:16:30 05/26/2024 13:56:44 Patient Care Complete 05/26/2024 13:16:30 05/26/2024 14:50:16 X-Ray Complete 05/26/2024 13:16:30 05/26/2024 13:36:15 05/26/2024 14:09:15 Pending Labs Complete 05/26/2024 13:30:59 05/26/2024 13:30:59 05/26/2024 13:56:44 Lab Complete 05/26/2024 13:30:59 05/26/2024 13:30:59 05/26/2024 13:56:44 Pending Labs Complete 05/26/2024 13:48:56 05/26/2024 13:48:56 05/26/2024 13:48:56 Wet Read Request 05/26/2024 14:09:15 Fall Risk Request 05/26/2024 14:20:55 Patient Care Request 05/26/2024 16:13:15 Transfer Complete 05/26/2024 16:13:15 05/27/2024 09:55:08 05/27/2024 09:55:08 NPO Request 05/27/2024 00:32:06 Discharge Complete 05/27/2024 09:55:08 05/27/2024 09:55:08 05/27/2024 09:55:08 ADDRESS: [address] [place] [id number] [facility] DOC NOTES: MEDICAL INFORMATION: Prescriptions Given: Medications to Continue with No Changes Other Medications acetaminophen-hydrocodone (Dassel 325 mg-5 mg oral tablet) 1 Tablets By Mouth every 6 hours as needed as needed for pain. Refills: 0. PATIENT EDUCATION INFORMATION: Instructions: Follow up: DIAGNOSIS: 1:Complete heart block; 2:Dizziness; 3:Lightheaded Normal [facility] ED Patient Education Noteon 05-27-2024 ED Patient Education Note ED Patient Education Note Normal [facility] ED Patient Summaryon ED Patient Summary ED Patient Summary [address] [address] Patient Discharge Instructions Person Information Name: MELBA ZAPATA Age: 69 Years Arrival Date: 05/26/2024 12:32:31 Discharge Diagnosis: 1:Complete heart block; 2:Dizziness; 3:Lightheaded Primary Care Physician: Beatrice Ingram Provider Information Primary Provider: Tony Edmondson DO Advanced Rating Specialist:Malcolm Greenwood PA-C The exam and treatment you received in the Emergency Department were for an urgent problem and are not intended as complete care. It is important that you follow up with a doctor, nurse practitioner, or physician?s assistant chief train dispatcher for ongoing care. If your symptoms become worse or you do not improve as expected and you are unable to reach your usual health care provider, you should return to the Emergency Department. We are available 24 hours a day. MELBA ZAPATA has been given the following list of patient education materials, prescriptions and follow-up instructions: Follow-up Instructions: In the event that this physician does not participate in your insurance network, please consult with your insurance company to find a nearby participating provider. Patient Education Materials: A MESSAGE TO ALL PATIENTS REGARDING OPIOIDS PRESCRIPTION OPIOIDS: WHAT YOU NEED TO KNOW Prescription opioids can be used to help relieve arjsnjul-jq-gfiqxa pain and are often prescribed following a [...] friends, and family). ? Safely dispose of unused prescription opioids: Find your community drug take-back program or your pharmacy mail-back program, or flush them down the toilet, following guidance from the Food and Drug Administration (www.fda.gov/Drugs/Resour cesForYou). ? Visit www.cdc.gov/drugoverdose to learn about the risks of opioids abuse and overdose. ? If you believe you may be struggling with addiction, tell your health career development facilitator and ask for guidance or call SAMHSA?S National Helpline at 5-641-529-HELP. v Source: US Department of Health and Human Services/Center for Disease Control & Prevention [facility] (more content not included)... Normal [facility] Main OR Intraoperative Recor don 05-27-2024 Main OR Intraoperative Record Main OR Intraoperative Record IntraOp Document Type FT Summary Primary Physician: Aakash Levy MD Finalized Date/Time: 05/27/24 09:04:31 Pt. Name: MELBA ZAPATA/Sex: 1955 Female Med Rec #: [id number] Physician: Mildred CONSTANTINO, Aakash Briones Financial #: [id number] Pt. Type: A Room/Bed: [place] [address] Admit/Disch: 05/26/24 05:56:56 - 05/26/24 11:10:00 Institution: Case Times FT Entry 1 Patient Times In Room 05/26/24 07:37:00 Out Room 05/26/24 08:51:00 Procedure Times Start 05/26/24 07:59:00 Stop 05/26/24 08:44:00 Anesthesia Times Start 05/26/24 07:37:00 Stop 05/26/24 08:51:00 Last Modified By: Arelis Vila 05/26/24 08:55:58 General Comments: DAVINCI ROBOT PROGRAMMED TO UPPER ABDOMEN AND POSITIONED ON PATIENT'S LEFT SIDE PER SURGEON REQUEST. DAVINCI ROBOT DOCKED AT 0808 AND UNDOCKED AT 0828. SURGEON AT [facility] [employer] FROM [phone].ALHAJI MAGANA. 05/27/24 Chart opened to review and send charges [facility] Case Attendance FT Entry 1 Entry 2 Entry 3 Case Attendee Haroon CHAMBERS, Aakash Levy MD, Aakash Martines MUSIC JOURNALISTScout Role Performed Anesthesiologist Surgeon - Primary MUSIC JOURNALIST/SA Smudger Time In 05/26/24 07:37:00 05/26/24 07:37:00 05/26/24 07:37:00 Time Out 05/26/24 08:51:00 05/26/24 08:51:00 05/26/24 08:51:00 Procedure CHOLECYSTECOMY ROBOT CHOLECYSTECOMY ROBOT CHOLECYSTECOMY ROBOT ASSISTED(.) ASSISTED(.) ASSISTED(.) Comments IS SUPERVISING Last Modified By: Arelis Vila Kelsie E Burgderfer, Kelsie E 05/26/24 08:55:59 05/26/24 08:55:59 05/26/24 08:55:59 Entry 4 Entry 5 Case Attendee Arelis Vila LPN, Jessica D Role Performed Brand Advisor - Primary Scrub - Primary Time In 05/26/24 07:37:00 05/26/24 07:37:00 Time Out 05/26/24 08:51:00 05/26/24 08:51:00 Procedure CHOLECYSTECOMY ROBOT CHOLECYSTECOMY ROBOT ASSISTED(.) ASSISTED(.) Comments Last Modified By: Arelis Vila Kelsie E 05/26/24 08:55:59 05/26/24 08:55:59 Perioperative Protocols FT Pre-Care Text: Implements protective measures prior to operative or invasive procedure, confirms identity before the operative or invasive procedure, verifies operative procedure, surgical site, and laterality Entry 1 Procedure(s) CHOLECYSTECOMY ROBOT Patient Identity Birthday, ID Band ASSISTED(.) Verified (select at Check, Patient least 2): Participation Consents / H and P Anesthesia Consent, Operative Site N/A Verified H&P, Surgery/Procedure Marking Verified Consent, Transfusion Consent Surgical Site Yes Laterality Verified n/a Verified Procedure Verified Yes Correct Patient Yes Position Verified Availability Equipment, Medication Prep Dry Yes Verified (If Applicable) PreOp Antibiotic Yes Time Out Aakash John, Given Participants Aakash Levy MD, Bobbi BEST, Scout Love, Arelis Vila, Pipo PALACIOSN, Vanessa Hou Time Out Complete 05/26/24 07:57:00 Outcomes Met? Yes Last Modified By: Arelis Vila 05/26/24 08:05:56 Post-Care Text: The patient is free from signs and symptoms of injury caused by extraneous objects Allergy Information FT Pre-Care Text: Verifies allergies Entry 1 Allergies Reviewed? Yes Allergies Reviewed Self/Patient With Outcomes Met? Yes Last Modified By: Arelis Vila 05/26/24 07:15:43 Post-Care Text: The patient received appropriate medication(s) safely administered during the perioperative period Surgical Procedures FT Entry 1 Procedure Description Procedure CHOLECYSTECOMY ROBOT Modifiers . ASSISTED Surgeon Description ROBOT ASSISTED LAPAROSCOPIC CHOLECYSTECTOMY Primary Procedure Yes Primary Surgeon Aakash Levy MD Start 05/26/24 07:59:00 Stop 05/26/24 08:44:00 Anesthesia Type General Surgical Service General Wound Class 2 - Clean-Contaminated Last Modified By: Arelis Vila 05/26/24 08:56:00 General Case Data FT Pre-Care Text: Classifies surgical wound, implements aseptic technique, initiates traffic control Entry 1 Case Information OR OR 6 FT Case Level Level 5 Wound Class 2 - Clean-Contaminated Specialty General ASA Class 3 Preop Diagnosis GALLSTONES Postop Same As Preop Yes Postop Diagnosis GALLSTONES Outcomes Met? Yes Last Modified By: Arelis Vila 05/26/24 08:00:02 Post-Care Text: The patient is free from signs and symptoms of infection Skin Assessment (Pre Procedure) FT Pre-Care Text: Implements protective measures to prevent skin/ tissue injury due to thermal or mechanical sources Evaluates for signs and symptoms of physical injury to skin and tissue Entry 1 Skin Integrity Intact, [place], Warm, & Skin Abnormality No Dry Outcomes Met? Yes Last Modified By: Arelis Vila 05/26/24 07:16:00 Post-Care Text: The patient is free from signs and symptoms of injury caused by extraneous objects Patient Positioning FT Pre-Care Text: Identifies physical alterations that (more content not included)... Normal [facility] TROPONIN Ion 05-27-2024 Troponin I.cardiac [Mass/Vol] 0.00 ng/mL Normal 0.00-0.04 [facility] Comment on above: Performed By: #### L [id number] ####[facility] ([facility])[address] [place] [address] TSH3 REFLEX TO FT4on 024 THYROTROPIN (MIU/L) IN SER/PLAS BY DETECTION LIMIT <= 0.05 MIU/L 0.43 mIU/L Normal 0.34-5.60 [facility] Comment on above: Performed By: #### L [id number] #### [facility] ([facility] [address] [place] [address] CHEMISTRYOrdered By: SYSTEM SYSTEM on 05-26-2024 Troponin HS 3.60 pg/mL Low 10.10 - 27.10 pg/mL [facility] Comment on above: Interpretive Data: T he 95% CI (Confidence Interval) PPV (Positive Predictive Value) for myocardial infarction in females is 38 pg/mL, in males 51 pg/mL. The results should be used in conjunction with clinical conditions of myocardial infarction. (Access High Sensitivity Troponin I Instructions For Use, Saul [place], June 2018) Anion gap [Moles/Vol] 11 mmol/L Normal 6 - 16 mEq/L [facility] Chem Calcium [Mass/Vol] 9.0 mg/dL Normal 8.9 - 11. 1 mg/dL Remisol Chem Chloride [Moles/Vol] 106 mmol/L Normal 101 - 111 mmol/L Remisol Chem CO2 [Moles/Vol] 26 mmol/L Normal 21 - 31 mmol/L Remis ol Chem Creatinine [Mass/Vol] 1.1 mg/dL Normal 0.5 - 1.3 mg/dL Remisol Chem eGFR 54 mL/min/1.73 m2 Low >=59mL/min /1.73 m2 Remisol Chem Glucose [Mass/Vol] 140 mg/dL Normal 55 - 199 mg/dL Re misol Chem Potassium [Moles/Vol] 4.5 mmol/L Normal 3.5 - 5.3 mmol/L Remisol Chem Sodium [Moles/Vol] 138 mmol/L Normal 135 - 145 mmol/L Remisol Chem Troponin HS 3.60 pg/mL Low 10.10 - 27.10 pg/mL [facility] Comment on above: Interpretive Data: T he 95% CI (Confidence Interval) PPV (Positive Predictive Value) for myocardial infarction in females is 38 pg/mL, in males 51 pg/mL. The results should be used in conjunction with clinical conditions of myocardial infarction. (Access High Sensitivity Troponin I Instructions For Use, Saul [place], June 2018) Urea nitrogen [Mass/Vol] 17 mg/dL Normal 5 - 21 mg/dL Remisol Chem Urea nitrogen/Creatinine [Mass ratio] 16 mg/mg Normal 10 - 20 Remisol Chem COAGULATIONOrdered By: Agatha Araiza on 05-26-2024 aPTT Coag (PPP) [Time] 33.5 s Normal 25.1 - 36.5 second(s) [facility] Auto Coag Comment on above: Interpretive Data: Sg vasquez 15 days - 4 weeks 1 - 5 months 6 - 11 months 1 - 5 years 6 - 10 years 11 - 17 years PTT Mean: 35.4 (27.6-45.6) Mean: 33.5 (24.8-40.7) Mean: 32.4 (25.1-40.7) Mean: 31.6 (24.0-39.2) Mean: 31.6 (26.9-38.7) Mean: 31.0 (24.6-38.4) Pediatric Reference ranges were obtained from a study by shannan Rosas al. prepared from 1437 samples obtained at 7 different centers using the same coagulation reagent and instrumentation as [facility]. Currently there are no coagulation studies available worldwide for children to 14 days, and no normal ranges. Heparin therapeutic range (represented by Anti-Factor Xa activity of 0.2 - 0.4 U/mL) corresponds to PTT of 56.6 - 109.0 sec. INR Coag (PPP) [Relative time] 1.14 {INR} Invalid Interpretation Code [facility] Comment on above: Interpretive Data: I NR results are specifically intended to assess patients stabilized on long-term Anticoagulation therapy suggested INR s Less Intensive Anticoagulation 2.0 3.0 Conventional Range 3.0 4.5 PT Coag (PPP) [Time] 12.8 s High 9.4 - 12.5 second(s) [facility] Comment on above: Interpretive Data: 1 5 days - 4 weeks 1 - 5 months 6 -11 months 1-5 years 6-10 years 11 -17 years Mean: 11.2 (9.5-12.6) Mean: 11.0 (9.7-12.8) Mean: 11.0 (9.8-13.0) Mean: 11.3 (9.9-13.4) Mean: 11.7 (10.0-14.6) Mean: 11.8 (10.0 - 14.1) Pediatric Reference ranges were obtained from a study by shannan Rosas al. prepared from 1437 samples obtained at 7 different centers using the same coagulation reagent and instrumentation as [facility]. Currently there are no coagulation studies available worldwide for children to 14 days, and no normal ranges. Discharge Instructionson Discharge Instructions Discharge Instructions MELBA ZAPATA :1955 Visit Date:05/26/2024 Inpatient Discharge Instructions Your Care Team Admitting Physician - Aakash Levy MD Referring Physician - Aakash Levy MD Reason for Your Visit GALLSTONES What to do next Instructions From Your Doctor Event Name Event Result Discharge Instructions Freetext ok to shower tomorrow do not submerge incisions underwater for two weeks after surgery no lifting greater than 35 pounds for one week after surgery Discharge Restrictions No driving for 24 hrs, Do not make important decisions for 24 hours, Do not drink alcoholic beverages for 24 hours Discharge Diet(s) Regular Call Your Doctor For Persistent or heavy bleeding, Temperature above 101.5 degrees, Redness, swelling, or pus at operative site, Severe pain at the operative site, Persistent vomiting Discharge Instructions Discharge Instructions Previously Scheduled Follow-Up Appointments Friday 8:20 AM EDT With: Mildred CONSTANTINO, Aakash Briones Where: [facility] General Surgery [place] [address] [place] [address]- Friday 2:00 PM EDT With: ALFREDO CONSTANTINO, Antonio Srivastava Where: [facility] [address] [address] [place] [address]- Friday 2:30 PM EDT With: Where: [facility] Primary Care [address] [place] [address]- 2023 2:00 PM EDT With: Beatrice Ingram Where: [facility] Primary Care [address] [place] [address]- New Follow Up Appointments after Discharge Follow Up with Aakash Levy When: Comments: Appointment has already been scheduled Where: [address], [address] [facility] [place] [phone] Business (1) Medications What How Much When Why Instructions Next Dose New acetaminophen-hydrocodone (Dassel 325 mg-5 mg oral tablet) 1 Tablets By Mouth Every 6 hours as needed for as needed for pain Gall stones Pickup at [facility] Unchanged albuterol (Albuterol (Eqv-ProAir HFA) 90 mcg/ inh inhalation aerosol) 2 Puffs Inhalation Every 6 hours Emphysema of lung Unchanged buPROPion (Wellbutrin SR 150 mg Tab-ER) 1 Tablets By Mouth 2 times a day Depression Other obesity Personal history of tobacco use Unchanged cholecalciferol (cholecalciferol 50,000 intl units oral capsule) 1 Capsules By Mouth Every 7 days Vitamin D deficiency Unchanged duloxetine (duloxetine 60 mg oral delayed release capsule) 1 Capsules By Mouth Every day Anxiety Depression Unchanged hydrochlorothiazide-lisin opril (hydrochlorothiazide-curtis nopril 25 mg-20 mg Tab) 1 Tablets By Mouth Every day Benign essential HTN Unchanged nicotine (nicotine 7 mg/ 24 hr Transderm ER Film) 1 Patches Topical Every day Personal history of tobacco use Unchanged ondansetron (Zofran 4 mg Tab) 1 Tablets By Mouth Every 8 hours as needed for Nausea/Vomiting Worsening headaches Pharmacy Information [facility]: [address] [place], [place] [phone] Allergies Contrast Dye (Swelling, Hives) adhesives (redness) penicillins (Passed out, Hives) Education Materials Minimally Invasive Cholecystectomy, Care After The following information offers guidance on how to care for yourself after your procedure. Your health care provider may also give you more specific instructions. If you have problems or questions, contact your health care provider. What can I expect after the procedure? After the procedure, it is common to have: ? Pain at your incision sites. You will be given medicines to control this pain. ? Mild nausea or vomiting. ? Bloating and possible shoulder pain from the gas that was used during the procedure. Follow these instructions at home: Medicines ? Take gqkc-bmr-rqxamyx and prescription medicines only as told by your health care provider. ? If you were prescribed an antibiotic medicine, take it as told by your health care provider. Do not stop using the antibiotic even if you start to feel better. ? Ask your health care provider if the medicine prescribed to you: ? Requires you to avoid driving or using machinery. ? Can cause constipation. You may need to take these actions to prevent or treat constipation: ? Drink enough fluid to keep your urine pale yellow. ? Take [id number]-srhrmmq or prescription medicines. ? Eat foods that are high in fiber, such as beans, whole grains, and fresh fruits and vegetables. ? Limit foods that are high in fat and processed sugars, such as fried or sweet foods. Incision care ? Follow instructions from your health care provider about how to take care of your incisions. Make sure you: ? Wash your hands with soap and water (more content not included)... Normal [facility] Comment on above: Result Comment: Amy oviedoally Signed By: Everett MANE, Kateryna Meredith\.kyler\Date and Time Signed: 05/26/24 09:43 EDT Documentationon 05-26-2024 Documentation [id number] Diana Zapata florinda Fisher 1955 F Date Provider Department Center 05/26/2024 Yassine-DEBBIE SIGALA [facility] Family History Problem Relation Age of Onset Atrial fibrillation Mother Diabetes Mother Other Mother Transient ischemic attack Father Stroke Maternal Grandmother Family Status - Relation Status Age at Mother Father Maternal Grandmother Normal [facility] ED Note-Physicianon 05-26-20 ED Note-Physician ED Note-Physician Basic Information Time Seen: Malcolm Greenwood PA-C 05/26/2024 13:02 Chief Complaint Pt has been wearing heart monitor the past month. Gallbladder surgery this morning with Dr. Levine. [place] called her wiht results of heart monitor and told in complete heart block. Nurses told Dr. Levine and told to come into ED. States sometimes History of Present Illness Patient is a 69-year-old female with PMH of hyperlipidemia, cholelithiasis status post cholecystectomy today, obesity, hypertension that presents today for evaluation of her possible heart block. Patient states that she has had dizziness and lightheadedness for the last 4+ weeks. She states that she has been wearing a Holter monitor for this reason. She had an elective cholecystectomy this morning with Dr. Levy. Right afterwards she was called by [facility] with the results of her heart monitor and was told that she was in complete heart block. She was then instructed by them as well as Dr. Levy to present to the ED for evaluation. Currently she states that she still has the dizziness and lightheadedness symptoms. She denies any chest pain, shortness of breath, dyspnea. She denies any fevers, body aches, chills. She states that the surgery this morning went well without complication. She does note that she had an echocardiogram done as an outpatient about 2 weeks ago which was normal. Review of Systems No other aggravating or relieving factors no other associated symptoms no other prior treatments or complaints. Family: Reviewed and noncontributory Social: lives at home Review of systems negative unless otherwise specified in the HPI. Physical Exam Vitals & Measurements T: 37.2 ?C(Oral) HR: 74(Peripheral) RR: 18 BP: 137/101 SpO2: 95% HT: 166 cm WT: 108.7 kg BMI: 39.45 General: The patient appears well and in no apparent distress. Patient is resting comfortably on cart. Skin: Warm, dry, no pallor noted. Head: Normocephalic, atraumatic Neck: No JVD Eye: PERRLA, EOMI ENT: Moist mucus membranes Cardiovascular: Regular rate and rhythm. Normal peripheral perfusion Respiratory: CTA bilaterally. No respiratory distress no accessory muscle use no obvious audible wheezing Chest Wall: no deformity Musculoskeletal: normal ROM, no deformity, no swelling GI: Soft no obvious distention. No rebound or rigidity. No guarding. No tenderness. Multiple bandages noted to the abdomen with only minimal amounts of bleeding noted. Neurological: A&O moves all extremities equal strength and symmetry Psychiatric: Cooperative and appropriate Medical Decision Making Patient is a 69-year-old female with PMH of hyperlipidemia, cholelithiasis status post cholecystectomy today, obesity, hypertension that presents today for evaluation of possible heart block. Has been wearing a Holter monitor for dizziness and lightheadedness symptoms for the last 4 weeks and was called with the results today and was instructed to present to the ED because she may be in heart block. Currently she states that she has continued dizziness and lightheadedness that she has had for the last 4 weeks. On exam she is nontoxic-appearing and afebrile. CTA and RRR. She does have multiple bandages noted to the abdomen with only minimal amounts of bleeding noted. Remainder of her exam is unremarkable. Initial EKG demonstrates sinus bradycardia with first-degree AV block with frequent supraventricular premature complexes in a bigeminal pattern, no evidence of complete AV block. Labs are WNL including WBC and 0-hour and 1-hour troponin. Chest x-ray is negative for any acute cardiopulmonary process. While the patient was in the ED her telemetry displayed possible second-degree heart block [place]enckebach. We called and discussed the patient's case with her learning disabilities teacher YOVANY Mejia who was able to fax over the Holter results that demonstrated complete heart block. Ms. Mejia also stated that Dr. Mckay the head learning disabilities teacher wants the patient transferred for pacemaker placement at [facility]. We initiated transfer to [facility] and I spoke with Dr. Queen hospitalist who accepted the patient for transfer. Return to ED precautions were reviewed with the patient at length. Critical care time 30 minutes exclusive from separate billable procedures Due to a high probability of clinically significant, life threatening deterioration, the patient required my highest level of preparedness to intervene emergently and I personally spent this critical care time directly and personally managing the patient. This critical care time included obtaining a history; examining the patient; pulse oximetry; ordering and review of studies; arranging urgent treatment with development of a management plan; evaluation of patient's response to treatment; frequent reassessment; and, discussions with other providers. This critical care time was performed to assess and manage the high probability of imminent, life-threatening deterioration that could result in multi (more content not included)... Normal [facility] Comment on above: Result Comment: Elec tronically Signed By: Malcolm Greenwood PA-C\.br\Date and Time Signed: 05/26/24 16:01 EDT\.br\Electronically Co-Signed By: Malcolm Greenwood PA-C\.br\Date and Time Co-Signed: 05/26/24 16:20 EDT\.br\Electronically Co-Signed By: Tony Edmondson DO\.br\Date and Time Co-Signed: 05/26/24 16:29 EDT HEMATOLOGYOrdered By: SYSTEM SYSTEM on 05-26-2024 Basophils/100 WBC (Bld) 0.4 % Normal 0.0 - 2.0 % Remisol Heme Basophils/Leukocyte s Auto (Bld) [Pure # fraction] 0.0 E9/L Normal 0.0 - 0.2 E9/L Remisol Heme Eosinophils (Bld) [#/Vol] 0.0 E9/L Normal 0.0 - 0.5 E9/L Remisol Heme Eosinophils/100 WBC (Bld) 0.2 % Normal 0.0 - 8.0 % Remisol Heme Erythrocyte distribution width (RBC) [Ratio] 14.0 % Normal 10.9 - 14.2 % Remisol Heme Hematocrit (Bld) [Volume fraction] 42.1 % Normal 34.0 - 46.0 % Remisol Heme Hemoglobin (Bld) [Mass/Vol] 14.5 g/dL Normal 12.0 - 16.0 gm/dL Remisol Heme Lymphocytes (Bld) [#/Vol] 0.8 E9/L Low 1.0 - 4.0 E9/L Remisol Heme Lymphocytes/100 WBC (Bld) 8.3 % Low 14.0 - 50.0 % Remisol Heme MCH (RBC) [Entitic mass] 32.0 pg Normal 27.0 - 34.0 pg Remisol Heme MCHC (RBC) [Mass/Vol] 34.4 g/dL Normal 31.4 - 36.0 gm/dL Remisol Heme MCV (RBC) [Entitic vol] 93.0 fL Normal 80.0 - 100.0 fL Remisol Heme Monocytes (Bld) [#/Vol] 0.2 E9/L Normal 0.2 - 1.0 E9/L Remisol Heme Monocytes/100 WBC (Bld) 2.1 % Low 4.0 - 14.0 % Remisol Heme Neutrophils (Bld) [#/Vol] 8.2 E9/L High 2.0 - 7.5 E9/L Remisol Heme Neutrophils/100 WBC (Bld) 89.0 % High 36.0 - 75.0 % Remisol Heme Platelet 247.0 E9/L Normal 150.0 - 500.0 E9/L Remisol Heme Platelet mean volume (Bld) [Entitic vol] 7.3 fL Normal 6.4 - 10.8 fL Remisol Heme RBC (Bld) [#/Vol] 4.5 E12/L Normal 4.3 - 5.9 E12/L Re misol Heme WBC corrected for nucl RBC Auto (Bld) [#/Vol] 9.2 E9/L Normal 4.0 - 11.0 E9/L Remisol Heme Inpatient Patient Summaryon 05-26-2024 Inpatient Patient Summary Inpatient Patient Summary [address] [address] [facility] Clinical Discharge Instructions PERSON INFORMATION Name: MELBA ZAPATA [facility]#:[id number] PHYSICIANS Admitting Physician: Aakash Levy MD Attending Physician: Aakash Levy MD PCP: Beatrice Ingram Discharge Diagnosis: Comment: PATIENT EDUCATION INFORMATION Instructions: Minimally Invasive Cholecystectomy, Care After Medication Leaflets: Follow up: With: Address: When: Aakash Levy [address], [facility] [address], [facility] 3 [place] [phone] Business (1) Comments: Appointment has already been scheduled Type Location Start Finish State GS Post Op 15 [facility] 06/04/2024 8:20 AM 06/04/2024 8:40 AM Confirmed URO New Patient [facility] [place] 07/12/2024 2:00 PM 07/12/2024 2:15 PM Confirmed FM Medicare Wellness Subsequent [facility] 07/13/2024 2:30 PM 07/13/2024 3:30 PM Confirmed FM Open [facility] 07/15/2024 2:00 PM 07/15/2024 2:20 PM Confirmed MEDICATION LIST New Medications [facility] #37, [address] [place], [place] [id number], [phone] acetaminophen-hydrocodone (Dassel 325 mg-5 mg oral tablet) 1 Tablets By Mouth every 6 hours as needed as needed for pain. Refills: 0. Medications to Continue with No Changes Other Medications albuterol (Albuterol (Eqv-ProAir HFA) 90 mcg/inh inhalation aerosol) 2 Puffs Inhalation every 6 hours. Refills: 6. buPROPion (Wellbutrin SR 150 mg Tab-ER) 1 Tablets By Mouth 2 times a day. Refills: 0. cholecalciferol (cholecalciferol 50,000 intl units oral capsule) 1 Capsules By Mouth every 7 days. Refills: 0. duloxetine (duloxetine 60 mg oral delayed release capsule) 1 Capsules By Mouth every day. Refills: 0. hydrochlorothiazide-lisin opril (hydrochlorothiazide-curtis nopril 25 mg-20 mg Tab) 1 Tablets By Mouth every day. Refills: 0. nicotine (nicotine 7 mg/24 hr Transderm ER Film) 1 Patches Topical every day. Refills: 1. ondansetron (Zofran 4 mg Tab) 1 Tablets By Mouth every 8 hours as needed Nausea/Vomiting. Refills: 0. Comment: Di Nik[facility] Main OR PACU I Recordon 05-04 Main OR PACU I Record Main OR PACU I Record PACU Phase I Document Type FT Summary Primary Physician: Aakash Levy MD Finalized Date/Time: 05/26/24 10:11:37 Pt. Name: BENNYMELBA/Sex: 1955 Female Med Rec #: [id number] Physician: Aakash Levy MD Financial #: [id number] Pt. Type: A Room/Bed: [facility] Admit/Disch: 05/26/24 05:56:56 - Institution: Case Times PACU I FT Pre-Care Text: Identifies barriers to communication and implements measures to provide psychological support Develops individualized plan of care, and ensures continuity of care Maintains patient's dignity and privacy, and maintains patient confidentiality Identifies and reports philosophical, cultural, and spiritual beliefs and values Identifies individual values and wishes concerning care Implements aseptic technique, and administers prescribed antibiotic therapy and immunizing agents as ordered Evaluates postoperative tissue perfusion Implements thermoregulation measures, and monitors body temperature Evaluates postoperative respiratory status Evaluates postoperative cardiac status Evaluates postoperative neurological status Assesses pain control, collaborated in initiating patient-controlled analgesia and implements alternative methods of pain control Verifies allergies, administers prescribed medications and solutions, evaluates response to medications Entry 1 In PACU I 05/26/24 08:53:00 Discharge from PACU 05/26/24 09:45:00 I Outcomes Met? Yes Last Modified By: Suzy Solis RN 05/26/24 10:11:20 Post-Care Text: The patient demonstrates knowledge of the expected response to the operative or invasive procedure The patient's care is consistent with the individualized perioperative plan of care The patient's right to privacy is maintained The patient's value system, lifestyle, ethnicity, and culture are considered, respected, and incorporated into the perioperative plan of care The patient participates in decisions affecting his or her perioperative plan of care The patient is free from signs and symptoms of infection The patient has wound/tissue perfusion consistent with or improved from baseline levels established preoperatively The patient is at or returning to normothermia at the conclusion of the immediate postoperative period The patient's respiratory function is consistent with or improved from baseline levels established preoperatively The patient's cardiovascular status is consistent with or improved from baseline levels established preoperatively The patient's cardiovascular status is consistent with or improved from baseline levels established preoperatively The patient demonstrates and/or reports adequate pain control throughout the perioperative period The patient received appropriate medication(s), safely administered during the perioperative period Acuity Level PACU I FT Entry 1 Start Time 05/26/24 08:53:00 Stop Time 05/26/24 09:45:00 Acuity Level Acuity Level I Last Modified By: Suzy Solis RN 05/26/24 10:11:33 Finalized By: Suzy Solis RN Document Signatures Signed By: Suzy Solis RN 05/26/24 10:11 [facility] Main OR PACU II Recordon Main OR PACU II Record Main OR PACU II Record PACU Phase II Document Type FT Summary Primary Physician: Aakash Levy MD Finalized Date/Time: 05/26/24 11:28:51 Pt. Name: BENNYMELBA./Sex: 1955 Female Med Rec #: [id number] Physician: Aakash Levy MD Financial #: [id number] Pt. Type: Room/Bed: [place] [address] Admit/Disch: 05/26/24 05:56:56 - Institution: Case Times PACU II FT Pre-Care Text: Identifies barriers to communication and implements measures to provide psychological support and determines knowledge level Develops individualized plan of care, and ensures continuity of care Maintains patient's dignity and privacy, and maintains patient confidentiality Identifies and reports philosophical, cultural, and spiritual beliefs and values Identifies individual values and wishes concerning care administers prescribed antibiotic therapy and immunizing agents as ordered, Evaluates postoperative tissue perfusion Implements thermoregulation measures, and monitors body temperature Evaluates postoperative respiratory status Evaluates postoperative cardiac status Evaluates postoperative neurological status Assesses pain control, collaborated in initiating patient-controlled analgesia and implements alternative methods of pain control Verifies allergies, administers prescribed medications and solutions, evaluates response to medications Entry 1 In PACU II 05/26/24 09:50:00 Discharge from PACU 05/26/24 11:10:00 II Outcomes Met? Yes Last Modified By: Kateryna Floyd RN 05/26/24 11:28:50 Post-Care Text: The patient demonstrates knowledge of the expected response to the operative or invasive procedure The patient's care is consistent with the individualized perioperative plan of care The patient's right to privacy is maintained The patient's value system, lifestyle, ethnicity, and culture are considered, respected, and incorporated into the perioperative plan of care The patient participates in decisions affecting his or her perioperative plan of care. The patient is free from signs and symptoms of infection The patient has wound/tissue perfusion consistent with or improved from baseline levels established preoperatively The patient is at or returning to normothermia at the conclusion of the immediate postoperative period The patient's respiratory function is consistent with or improved from baseline levels established preoperatively The patient's cardiovascular status is consistent with or improved from baseline levels established preoperatively The patient's neurological status is consistent with or improved from baseline levels established preoperatively The patient demonstrates and/or reports adequate pain control throughout the perioperative period The patient received appropriate medication(s), safely administered during the perioperative period Finalized By: Kateryna Floyd RN Document Signatures Signed By: Kateryna Floyd RN 05/26/24 11:28 Normal [facility] Operative Reporton 4 Operative Report Operative Report Indication for Surgery 69 y/o female with symptomatic cholelithiasis here for robotic cholecystectomy Preoperative Diagnosis GALLSTONES Postoperative Diagnosis GALLSTONES Operation CHOLECYSTECOMY ROBOT ASSISTED, ROBOT ASSISTED LAPAROSCOPIC CHOLECYSTECTOMY, . Surgeon(s) Aakash Levy MD (Surgeon - Primary) Smudger Miki Anesthesia General Campbell Scout Eddy DO (Clam Treader) Leopoldo Carias (Anesthesiologist Smudger) Aakash John (Anesthesiologist Smudger) Estimated Blood Loss 5.0 mL Urine Output void prior to OR Findings Gallbladder with stone Specimen(s) Pathology Tissue Exam (gallbladder,AP Specimen) Complications none Technique Informed consent: Written Position: Supine Perioperative antibiotics given within 60 minutes of incision: yes Time Out performed: yes Anesthesia: General ETT Prep and Drape: Sterile fashion Hair Clipped: No Abdominal Access:Veress Needle, Optiview 5mm trocar at peñaloza's point Port placement: 8mm robotic trocars 20cm from costal margin in left lower quadrant, left paramedian, right paramedian, right lower quadrant Robot Docked: yes Instruments: Prograsp, 30 degree robotic camera, forced bipolar, robotic monopolar scissors Firefly use to identify biliary structures: yes Aspiration needle to used to decompress gallbladder of 15cc of dark green bilous fluid Cystic duct identified and circumferentially dissected: yes Cystic artery identified and circumferentially dissected:yes Critical view of safety: yes Division of cystic duct: 2 clips proximal, one distal, divided with scissors Division of cystic artery: two clips proximal, distally divided with cautery Gallbladder dissected off cystic plate: yes Gallbladder placed in Endo Catch bag: yes Gallbladder removed from field: Yes Spillage of contents: no Irrigation: no Ports removed and abdomen desufflated: Yes Skin closure: 4-0 monocryl, subcuticular fashion Dressing: skin glue Correct counts:yes, x2 Patient tolerated the procedure: yes Normal [facility] Comment on above: Result Comment: Elec tronically Signed By: Mildred CONSTANTINO, Aakash Briones\.br\Date and Time Signed: 05/26/24 09:09 EDT Outpatient Surgery Discharge Instructionon 05-26-2024 Outpatient Surgery Discharge Instruction Outpatient Surgery Discharge Instruction [place] [id number] Patient Discharge Instructions PERSON INFORMATION Name: MELBA ZAPATA Date of : 1955 Current Date: 05/26/2024 08:55:32 PHYSICIANS Admitting Physician: Aakash Levy MD Discharge Diagnosis: MELBA ZAPATA has been given the following list of follow-up instructions, prescriptions, and patient education materials: PATIENT FOLLOW-UP INFORMATION Diet: Regular Discharge Restrictions: No driving for 24 hrs, Do not make important decisions for 24 hours, Do not drink alcoholic beverages for 24 hours Call Your Doctor For: Persistent or heavy bleeding, Temperature above 101.5 degrees, Redness, swelling, or pus at operative site, Severe pain at the operative site, Persistent vomiting Additional Instructions: ok to shower tomorrow do not submerge incisions underwater for two weeks after surgery no lifting greater than 35 pounds for one week after surgery IF UNABLE TO CONTACT YOUR PHYSICIAN AND YOU FEEL IT IS AN EMERGENCY, GO TO THE NEAREST EMERGENCY ROOM OR CALL 911 BENNY Mcconnell VALERIE A, have received the attached patient education materials/instructions and have verbalized understanding: May we do a follow up call? Yes No I was present when discharge instructions were given Patient Signature ___ Date Clinican/Nurse Signature Date Follow up: With: Address: When: Aakash Levy [address] [place] [address], [place] [address], [address] [phone] Business (1) Comments: Appointment has already been scheduled Type Location Start Finish State GS Post Op 15 [facility] 06/04/2024 8:20 AM 06/04/2024 8:40 AM Confirmed URO New Patient [facility] [place] 07/12/2024 2:00 PM 07/12/2024 2:15 PM Confirmed FM Medicare Wellness Subsequent [facility] 07/13/2024 2:30 PM 07/13/2024 3:30 PM Confirmed FM Open [facility] 07/15/2024 2:00 PM 07/15/2024 2:20 PM Confirmed Pharmacy Information: You may receive a survey from Robel Talbert asking you to rate your care experience. Your feedback is important and will help us understand what we do well and how we can improve the quality of care we provide to you, your loved ones and our community. It?s an honor to serve you. Thank you for choosing [facility] HERE ARE THE MEDICATION CHANGES THAT OCCURRED DURING YOUR HOSPITAL STAY New Medications [facility] #37, [address] [place] [id number], [phone] acetaminophen-hydrocodone (Dassel 325 mg-5 mg oral tablet) 1 Tablets By Mouth every 6 hours as needed as needed for pain. Refills: 0. Medications to Continue with No Changes Other Medications albuterol (Albuterol (Eqv-ProAir HFA) 90 mcg/inh inhalation aerosol) 2 Puffs Inhalation every 6 hours. Refills: 6. buPROPion (Wellbutrin SR 150 mg Tab-ER) 1 Tablets By Mouth 2 times a day. Refills: 0. cholecalciferol (cholecalciferol 50,000 intl units oral capsule) 1 Capsules By Mouth every 7 days. Refills: 0. duloxetine (duloxetine 60 mg oral delayed release capsule) 1 Capsules By Mouth every day. Refills: 0. hydrochlorothiazide-lisin opril (hydrochlorothiazide-curtis nopril 25 mg-20 mg Tab) 1 Tablets By Mouth every day. Refills: 0. nicotine (nicotine 7 mg/24 hr Transderm ER Film) 1 Patches Topical every day. Refills: 1. ondansetron (Zofran 4 mg Tab) 1 Tablets By Mouth every 8 hours as needed Nausea/Vomiting. Refills: 0. PATIENT EDUCATION INFORMATION Instructions: Minimally Invasive Cholecystectomy, Care After The following information offers guidance on how to care for yourself after your procedure. Your health care provider may also give you more specific instructions. If you have problems or questions, contact your health care provider. What can I expect after the procedure? After the procedure, it is common to have: ? Pain at your incision sites. You will be given medicines to control this pain. ? Mild nausea or vomiting. ? Bloating and possible shoulder pain from the gas that was used during the procedure. Follow these instructions at home: Medicines ? Take ucxp-kvw-wgjmtix and prescription medicines only as told by your health care provider. ? If you were prescribed an antibiotic medicine, take it as told by your health care provider. Do not stop using the antibiotic even if you start to feel better. ? Ask your health care provider if the medicine prescribed to you: ? Requires you to avoid driving or using machinery. ? Can cause constipation. You may need to take these actions to prevent or treat constipation: ? Drink enough fluid to keep your urine pale ye (more content not included)... Normal [facility] Troponin 1 Hr.on 05-26-2024 Troponin HS 3.60 pg/mL Low 10.10-27.10 [facility] Comment on above: Result Comment: The 95% CI (Confidence Interval) PPV (Positive Predictive Value) for myocardial infarction in females is 38 pg/mL, in males 51 pg/mL. The results should be used in conjunction with clinical conditions of myocardial infarction. (Access High Sensitivity Troponin I Instructions For Use, [employer], June 2018) Performed By: #### 1 [id number] #### [facility] [address] [place] [address] 36on 05-25-2024 36 Regarding critical reports on event monitor from 05/22/2024: NETO Li MA Nicole please call her and see how she is feeling, I don't think its really 3rd degree block- But would like to know what Rafita thinks- Dr. Puentes, can you please take a look at these reports that are scanned into her multimedia manager? Normal [facility] Office Visiton 05-14-2024 Follow-up visit [id number] Diana Zapata 1955 F Date Provider Department Center 05/14/2024 Yassine-DEBBIE SIGALA JACKIE [facility] Family History Problem Relation Age of Onset Atrial fibrillation Mother Diabetes Mother Other Mother Transient ischemic attack Father Stroke Maternal Grandmother Family Status - Relation Status Age at Mother Father Maternal Grandmother Level of Service:29[address] [place] OFFICE/OUTPATIENT ESTABLISHED MOD MDM 30 MIN Normal [facility] Pulmonary Function Studieson 05-01-2024 Pulmonary Function Studies Pulmonary Function Studies PULMONARY FUNCTION TEST: 04/21/2024 REQUESTING PROVIDER: IFEANYI Manjarrez REASON FOR TESTING: Tobacco use. Spirometry results are acceptable and reproducible. The FVC was 2.88 liters or 100% of predicted. FEV1 was 2.1 liters or 94% of predicted with a ratio of 73%. Lung volumes showed a total lung capacity of 109% of predicted, residual volume of 121% of predicted with a ratio of 46%. Diffusion capacity for carbon monoxide was 64% of predicted and when adjusted to alveolar volume was 73% of predicted. IMPRESSION: Pulmonary function test results show normal spirometry and lung volumes. The diffusion capacity is moderately decreased. An isolated decrease in diffusion capacity can be seen in anemia, carbon monoxide poisoning such as active smoking, pulmonary hypertension, cardiac causes, among others. Clinical correlation is recommended. When compared to the patient's prior pulmonary function test performed on April 14, 2010, there has been a minimal improvement in the diffusion capacity since then. READ BY: Kalani Caballero M.D. ca Dictated: 04/25/2024 [id number] Transcribed: 04/27/2024 cc:IFEANYI Manjarrez [facility] Comment on above: Result Comment: Elec tronically Signed By: Federico CONSTANTINO, Kalani Schafer\.br\Date and Time Signed: 05/01/24 14:53 EDT Coding Summary.on 04-28-2024 Coding Summary. [id number]+PG hlYWQ +KB7VEAOdI50tfJYsdP7yZ3WF TElOSywgQVBQTElOSyIgbmFtZ S2waCBkDYPx IC8+QB0zDREyPlnsqJArm4K9l GM0M52hcm1fXNzzuTR0BUFuMj Empjhra4braFy9SGacHdluYwS t CJBylG50YCO6xS00Cq38nRHec YBhr1oqnMz9UbTeHOWfZJA5pP idCThyc3RrQKDoS38wwZMxn9S 6 YNKmhXvxyNDsBqMfyKP7sV9nV Phnhahik5eixsbqTyd6ux86aJ Mus8S4sMM0J8PisiW4OBDlsBK g SflvrQDEbJ6hrtacv6uvovwrA iGhIGVhUMe8ONr5PPTchOupKn GxQV82NKP0ZBKmbqZqD3YyVIV s rScdEaB8m6M8Mw9XJ3FQViccS 1VNTUFSWTwvdGQ+RD91zs24O3 CfCrdwCgu2RPMoYEC2dHY4sB1 n TOItDLsep7S9wDX3X2HdgnZzj t0lk9zgZHPlDUhrB91noZSbb6 I7PLApxNG7SBYcmMnmRnChrF0 3 Oyc+XJHcePoim1TvGxcis8nua 8eycBq9BmaoKBMgfiCflWldVV P7e3LlLo2jSTYepJV6oMV7aH5 i AwKpNrT2UXkjN376YaDrtMHvJ sodP07aW6LqfXE+PRIsJbp5KN NozYwaJT9yJ3WwRCDiucxvuBH m lQveJM7vRAXvjatxFKBjfH7xK YNbU0e0EvTgPzW3QDweD9DpGH XrfsfzVq83pW1xHcYnOaV0VOq u T9AmcaR9YHDwqVAeMIreNMB3L 26zo6A4YEWlXNDwQSB1xIL4eN 1hbGlnbjogbGVmdDsgdmVydGl j CCtmEPwdN686XZQpfRomPfKrR GluZyBEYXRlOiAgMDYvMjYvMj AyNDwvdGQ+VEViQFI9nKthOFY n lRLaOPqlNp5seKxrjHpvEJ0gS IHzaehxDBMgsM5lTHEfgIOysZ luEX7nHBSxajtqd758SdUkECH 0 WLIpdGZgM3QrwJ3mZrArGUEfJ JTwY2HttDAaYYvtN753DAmpDs P9YQImlwJdH7HmMVZyqTyoRdH 0 d7I5La4Tj2SdholrI1LrtYCxQ tLdXlvvDWd2Q4TfWehdaGP+PC 96YGBoOH42QDw6MNE2lHqaFEe i EVVnT7YjkV2mSrDjRFVnCJEvQ yc+PHRhYmxlIHdpZHRoPScxMD MwHzAmjLguVF1dQg5nDNLeNOI v kBbvbUJjZuLnn4niILEbENrjN U1osDweC6LmmAR3XECep4i3Um 47N96wK1IsjLA+YLNkcXK7cMD 0 rT3rCrZjSmP5KPljM587DgHts YBnBdnln3bjh2fziIi5NjF6ZV TkyqNkkLfcZRJ2c3UbUu31D59 s IHdpZHRoPSIxNSUiIHZhbGlnb e1lwL7sLk5+KMCaeUG3iMC5nT 7sNlPnIhS0JKxjU368JfBigCV v Ewvgx3hev1ageKs6TtChXLKde pYksMctKHC1g5IzLc78A0PnbE wrn1EsGml5ac39rBMnx2F7zSU 9 S9EeWMLkuookpGNemSljTK8uI VVlidvlOZDwrD6tUHQbV9h3Tz EeXmE6WOubX6OcwcZ3CCLgoXZ g PEQltBNLhS8tsyrxs8gwcdgqM gFsFBPkHZz6NXl7OQBrcQokSo KuSDB3OtX6BSF9qGOtsA8nuIb n yknzrX8yRcm+OQY6kHQqmHJDB X8mKpdodJJ+UZEbJBV4tAkwLE afRHAxuH2fFDUyW4f3LoVtRoE 1 OQupH4JyfqV1RKVrfEMwGEHfq VFCbI6ekhicb3bdzaihZePoDN IwLNa1MTh1BAYivQxbHjBcNJK 0 WcQ2YLZ1qGCynD5tjYtowfiru G9wOyc+KkpxgGwsETR5NNx7T9 BhFbf0MXCbgMedUD0vuFEePAg u Bz3amSdumNayLV1aNPCtjkybd 909TyIvq4quZYRvaQUhJPvtXQ L4F79fk6M0HLClXLMbVYY3qER 4 fB6leJmujbhlkLRaxFflzaInl XeeMPimGHojC987AMSjpGlqYa CiQSv0T0VjQbk2KWMxePtrEO4 n tEZkUFpzRc1gtPhnpQuoLL5xF FMefptmu643JpTnv5enKPIjdO QjYFfnKHS4Z12co3X1COOnYBQ w JDU7yNH5lJ6reMhpopwhgQLps EhttxTttTqrVLjhKRsqM543MC XrfUbhHkRzeDf7Q4GpOoh6DRU z aPdcFW0cxHSjZZokGq2niHygs UqyCK5iGVKdksnfn844GnWou5 gtMECjjYCyPJptYXJ4M66gn1K 6 PYRtLMBlRXI8dAW8zD3jzEjqk jogbGVmdDsgdmVydGljYWwtYW rrH451AWTnkSdcIuSjaFjggxY g ARwmEVi8D9IwHqifoNR+PC90Y CQtBC55oRMwuEQpq7fzcTn4Py WoLZFfPKA1zTeqFUjhg3PjPKN t P35fiATzm0G9IYXpiNtklHEuO wSojQC2tO0rEIdpmoxyc7awlw wjPjnvb7cjuw56eZ97T29fJIh p ZIJnOYJgETXrLWHjuVvypu8ij G9wIi8+MUPfuQU9rQL3jY1zYE WmEmB1EAuyU089XqWmhOCuBmc j q7lwr2jaqHx6MnO0RTKgwmGjb MgaEHQ9j7DaJk67A53bJRkjHU YeFNHeFQBcAPJzdKvxhd8isS7 w Ii8+EOSahSH4wJK9mG1fFgHjC uY1YJbjO778LfPewYIoLuakN8 6uD7BavLY+XVQlPrm9FCRubXd s AN3yzDZpXVlvIv9rORC9LvXaY zBeKYkqN0IyMGCecisqimzlmA E0FEBiBYWctE40Zt5mdQqfYIQ w gUQZbQ0guoxrp1mhyafaRjQoW ZBrHBy0SPf4ADFnxDtpNfFkPG G4HuZ5ZGY0qRBohX5xgUfoqms g kG4kA8XxUTNmsmzpTw55bF4hE fHoJiB0FPhwLgv+U4rKDZxcKC ZBTEVSSUUgQTwvdGQ+PHRkIHN 0 cFfiVDywAGWmiM5iUNWjG1u6F qExWpH7RGlmF0IxMZJljjuoWm 18mM9nWdFvCmV9WNluK4LrmjC 6 QVTvtYOvWJcjSRK3X78jy0S1Y DPhUCNfJMT8hAT0mK5crQivzb ogbGVmdDsgdmVydGljYWwtYWx p G945EJDbfThpWqW8MnKyWlX0X KX6W7ZkZqg8LMBurTdtLT8soJ FwUUsuIc1qsNvdvYgrEO9iCNY p obqpVVDdoT5bQHFkjWKmhHvpV X7aKINsbpvqr921TtHxFRV1SE KpiQPyW5KylQ9fIjDrGFXxXHQ w I3EmzYIyGFctY583UPsmUcF7U QGcppZqQ8IwHSZqhFowEvN9i0 M8Fe04WWXSFJXqfjzgvTP+PHR k EPB1cYygDTziWGEdvO9tREIoX 4v1EmSjChI6WCluM2PlLIWdzi ubDx94oH6uQlPlQkA0IZosJ9Z v llM9GRYjeIVuLQctXJC7E83zo 5K6MTLeZFOxCMD2rXL8sE4vbM lnbjogbGVmdDsgdmVydGljYWw t EQogQ512SQAlwBxaRvTtcXLxF TwvdGQ+SYHqYVQ5sPseUZgkAB XwgO5jVYFzC4d4ZwIrVjW2BWq u N7LlUOBolazpWc57dL7aAyBxS kS8MXekO1HiprR5ZQUscDYtIT pnJZH9S87ik3U0APWjDDMtTMV 7 dYV1rG2qvGuekuqzpIAukOziz xSobCvwJRxhVEprO131UYKpdI bhMy59nMIqbBxnurQ8U9QvIdi v dHI+SF70MBQeDQ46fJIjgQSws 0mvtOs7OmJvDIXdBBD2nUydOU mdp8HgXPPvK72noMIxs6S7HIW v mIkpiTPgVkVnzIQ8lZ4hSNhku gmem1vuryoeDsxlb7nmyd51gJ 19E78tIMxaDZLcGXDjZVRlJQE h tDdrvl0mfE7fOv7+BDEgbKD8q CO4oU1ePvSwGvV4BOmaP330Ox DbmNQuZemcz9pmf5oudWn2IlU w QDUiomMdgOvwQJV9v0KxVv44S 29sIHdpZHRoPSIyMCUiIHZhbG amaj8uzA4yVo9+EA5xw0ilcm8 1 jP07fDC+IFBjTXV4tBuxQOxcD ZImfR4hCKjzHxD7AYYnDrPldS 96hZRaDDgwZp8lkUhbvAsnFN9 w WLMwlgfzd288FfUot4dnUYFof RIqLRhbOHU9R24ge0I5UZXeOQ MpUBT1pLT7yO0hdHmdpjmisFZ m uAjtrqFjbTteSAusWCqiQ848W ANmlAftOaUfmSYgG3covpIHRC 1lOjwvdGQ+LXQbNPI8sSwbCTy w JRLtbI8bZSHlV7q9StFdQtA2X MyaC5RwfmH0KDImbKUyGPIojF HLwF8jcraht2mefbhkUoFgFUW w KWc7AGl7AXWlbAlfLwSyZMK3R mT9CVF0aLYgiT9nuKastjmspJ 9wOyc+RklOOjwvdGQ+PHRkIHN 0 qKbxBDreARBuaZ3pOHRmU5s9I dNoOwI1JJyaK3MxpoG3VZNxpB TgPLSdwRSEkV6qycyrx8ueipj g UkHqFTYnEEk9KMl2ENBaqRkkD rZeLVD3EtZ9FTE6wKAlmX6niD bsugwyqX7bEqo+TVJOOjwvdGQ + SHSnYCW6vGceFClzCPEwhJ0iZ PZjP8h4AcLzTxM3UPckQ9Dvsz O0TJVvnGJlEUWleSUYfF6tvnx j e9zekjvkZkKxEKLnYEe3LXm9M NQjoLtqJgQdXYB7ZhA0EGV1jI IclF5flScuqkuwlC5hOef+UGF 5 YSX6BV45AT93K0SsRdzihTIms +PHRhYmxlIHdpZHRoPScxMD NdQeVdkMbmCV1aNh1gROPlATG v bGxhcHNlOiBjb (more content not included)... Normal [facility] Consent for Procedure/Surger yon 04-28-2024 Consent for Procedure/Surgery [id number] [facility] Ambulatory Visit Summaryon 0 04-27-2024 Ambulatory Visit Summary MELBA ZAPATA :1955 Visit Date:04/27/2024 Ambulatory Visit Instructions Your Diagnosis Gall stones BMI 40.0-44.9, adult Class 3 severe obesity with serious comorbidity in adult Your Care Team Attending Physician - Aakash Levy MD Primary Care Physician - Beatrice Ingram Referring Physician - Beatrice Ingram This Is Your Medications List albuterol (Albuterol (Eqv-ProAir HFA) 90 mcg/inh inhalation aerosol) buPROPion (Wellbutrin SR 150 mg Tab-ER) cholecalciferol (cholecalciferol 50,000 intl units oral capsule) duloxetine (duloxetine 60 mg oral delayed release capsule) hydrochlorothiazide-lisin opril (hydrochlorothiazide-curtis nopril 25 mg-20 mg Tab) nicotine (nicotine 7 mg/24 hr Transderm ER Film) ondansetron (Zofran 4 mg Tab) tiotropium (Spiriva HandiHaler 18 mcg inhalation capsule) umeclidinium (Incruse Ellipta 62.5 mcg inhalation powder) Procedures Performed Open reduction of fracture (09/2023), [...] Suspension of bladder, TUBAL LIGATION. Discharge Vitals Heart Rate (Peripheral) 92 Blood Pressure 128/82 Height 162 cm Height 64 in Weight 105 kg Weight 231 lb BMI 40.01 What to do next Scheduled Follow-Up Appointments Friday 8:20 AM EDT With: Mildred CONSTANTINO, Aakash Briones Where: [facility] General Surgery [place] Invalid Interpretation Code [address] [place] [address] [place] [address]- \.br\ Friday 2:30 PM EDT \.br\ With:\.br\ Where: [facility] Primary Care [facility] General Surgery Office/Clini c Noteon 04-27-2024 General Surgery Office/Clinic Note Chief Complaint SLIP CASTER Cholelithiasis HPI Staff SLIP CASTER Melba is a 69 y.o. female here for gall stones Beatrice ROSE-C referring US GB done 04/02/2024 Today patient states she has RUQ pain traveling to back, nausea No Known food trigger s/p appendectomy at age 24 s/p ovarian cystectomy done at age 24 History of Present Illness Consent: The patient or their guardian verbally consented to allow Harmony Avalos to record this visit. The patient is a 69-year-old female who was referred to us for symptomatic cholelithiasis. The patient underwent an ultrasound of her gallbladder and was found to have a 2-cm gallstone with no pericholecystic fluid or wall thickening. The patient reports experiencing pain that originates in the upper right quadrant and radiates to the right flank. The patient notes that her pain is occasionally aggravated with food intake and is characterized by cramping pain. Labs reviewed; x-rays reviewed. Review of Systems Constitutional: No fever, no sweats, no weight loss. Eyes: No glasses, no blurred vision, no visual loss. ENMT: No dentures, no hoarseness, no swallowing difficulties, no hearing loss, no ear infection(s), no nose bleeds. Cardiovascular: Normal blood pressure, no chest pain, regular heartbeat, no heart murmur. Respiratory: No shortness of breath, no cough, no asthma, no wheezing. Gastrointestinal: No nausea, no vomiting, no diarrhea, no constipation, no blood in stool, no change in bowel habits, no abdominal pain, no hepatitis. Genitourinary: No kidney stones, no urine infection, no dysuria. Musculoskeletal: No pain, no weakness. Skin: No changing moles, no rash, no skin lumps. Neurologic: No seizures, no epilepsy, no headache. Psychiatric: No emotional or psychiatric problem. Heme/Lymph: No bleeding problems, no anemia, no blood clots, no transfusions. Allergy/Immunologic: No swollen lymph nodes/glands, no IV drug abuse. Other: Additional ROS info: Except as noted in the above Review of Systems and in the History of Present Illness, all other systems have been reviewed and are negative or noncontributory. Physical Exam Vitals & Measurements HR: 92(Peripheral) BP: 128/82 HT: 64 in HT: 162 cm WT: 105 kg WT: 231 lb BMI: 40.01 General: No acute distress Eyes: Normal conjunctiva, sclera clear, no scleral icterus, EOM intact, PERRLA. Neck: Trachea midline Respiratory: Respirations non labored. Cardiovascular: Regular rate and rhythm, Gastrointestinal: Positive for a mild right upper quadrant tenderness. A low Pfannenstiel incision from an appendectomy and from the removal of an ovarian cyst were noted. Musculoskeletal: Normal gait, digits and nails without infection, nodes, cyanosis, clubbing. Skin: No rashes, no lesions, no ulcers, no subcutaneous nodules, induration. Psychiatric/Neuro: Oriented to time, place, person, judgement normal, affect appropriate for age, insight intact, no focal deficits. Lymphatic: No cervical lymphadenopathy Assessment/Plan The patient is a 69-year-old female with symptomatic cholelithiasis. 1. Gall stones (K80.20: Calculus of gallbladder without cholecystitis without obstruction) We will proceed with a robotic cholecystectomy at this time. 2. BMI 40.0-44.9, adult (Z68.41: Body mass index [BMI] 40.0-44.9, adult) 3. Class 3 severe obesity with serious comorbidity in adult (E66.01: Morbid (severe) obesity due to excess calories) Portions of this record may have been created with voice recognition artificial intelligence software, specifically [employer], [employer] and or Dragon Ambient Experience. Substitutions may have occurred due to the inherent limitations of voice recognition and artificial intelligence software. ATTESTATION: Documentation services were performed after the patient or guardian consented to allow Harmony Michelle eXperience to record this visit. MICKY digital media specialist and provider reviewed before signing. MICKY: Vilma Clifford/Natalia Crowder. Follow-up No qualifying data available Problem List/Past Medical History Ongoing Abrasion, right lower leg, initial encounter Benign essential HTN BMI 40.0-44.9, adult Cervical spine degeneration Class 3 severe obesity with serious comorbidity in adult Emphysema of lung Fatigue FHx: thyroid cancer Flank pain Fracture of right wrist with routine healing Gall stones Herniated cervical disc Hip pain, left Hydronephrosis Hyperglycemia Hyperlipidemia Kidney stones Major depressive disorder, recurrent, mild Need for tetanus booster Nocturia Osteopenia Patient had no falls in past year Personal history of tobacco use Screening for breast cancer Smoker Urge incontinence Urinary urgency Vitamin D deficiency Wellness examination Worsening headaches Historical Anxiety Asthma BMI 37.0-37.9, adult Sicca syndrome Sinus congestion Smoker Tobacco abuse Procedure/Surgical History Open reduction of frac (more content not included)... [facility] Comment on above: Result Comment: Elec tronically Signed By: Mildred CONSTANTINO, Aakash Briones\.br\Date and Time Signed: 04/27/24 16:19 EDT\.br\Electronically Co-Signed By: Lillian Osborne\.br\Date and Time Co-Signed: 04/27/24 15:28 EDT Consent for Treatmenton 04-03 Consent for Treatment [id number]#1.00TIFF [facility] Pulmonary Function Testson 0 04-21-2024 Pulmonary Function Tests [id number]#1.00TIFF [facility] Consent for Immunizationon 0 04-15-2024 Consent for Immunization [id number]#1.00TIFF [facility] Family Medicine Office/Clini c Noteon 04-15-2024 Family Medicine Office/Clinic Note Chief Complaint 1 month follow up-Med check HPI Staff Reason for visit: 1 month follow up-Medication check, HTN Notes: Discuss nicotine patches and abrasion on right leg Hypertension. How often are you checking your blood pressure? Couple times a week What are your average readings? 130s/80s Do you have any of the following symptoms? Chest Pain? no Palpitations? no DIAZ/SOB? yes Upon exertion Headache? yes Patient states she believes she has migraines but has not been dx with it. Peripheral Edema? Yes, patient states she noticed some swelling in her ankles today. Mental Status: Medication adherence- Yes, takes medication as prescribed Mediation refill needed: yes Suicidal thoughts-Not at this time LISBETH: 5 PHQ9: 5 History of Present Illness I have reviewed and discussed the HPI (staff) with the patient today. Information was verified and is correct. Additional information provided if needed. Melba Zapata is a 69-year-old female who presents for evaluation of multiple medical concerns. Chart review. The blood pressures of the patient are still slightly elevated in the 130s mmHg systolic. She experiences mild dyspnea upon exertion. She experiences headaches. She is also experiencing ankle edema today, 04/14/2024, and we might increase her blood pressure medicine. She also wants to work on her nicotine patches. We will get a different dose of that. We are going to give her a tetanus vaccination. She has high LDL, dyslipidemia, and low vitamin D. Abrasion. The abrasion of the patient, which she sustained 1 week ago, has been healing well. Hypertension/ankle edema. She reports mild edema in her ankles but is unsure if it is due to weather conditions. She was previously on Norvasc a few years ago, which was discontinued due to weight loss; however, she has experienced a weight gain of 8 pounds. Her goal weight is180 pounds. She expresses reluctance to adhere to a protein diet due to her history of fatty liver and renal calculi. Dyspnea upon exertion. She continues to experience dyspnea, particularly when walking uphill. She denies any associated jaw or arm pain but does report sweating. 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 She was initially suspected of having thyroid issues but reports that it was not due to it. She denies any chest pain associated with her dyspnea. Headaches. She continues to experience headaches, approximately 1 or 2 times a week, which disrupts her sleep occasionally. Abnormal EKG results. She did not pass her EKG when she underwent wrist surgery. 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 She reports that an echocardiogram was ordered, but she had to cancel due to transportation issues. She was advised to contact again and reschedule. She had an abnormal EKG a few years ago, which indicated a previous myocardial infarction, but subsequent tests returned normal results. She has never undergone an MRI. Gallstones with flank pain. She has undergone a gallbladder ultrasound. She has a 2 cm gallstone, but she reports that no further action was done to it. She does not prefer to experience gallbladder attacks; however, she reports frequent pains on the right side weekly, the cause of which is unknown to her. Her previous surgeon, Dr. Maddox has retired. She reports that he did not recommend cholecystectomy as she did not experience gallbladder attacks. She requests a prescription for anti-nausea medication. She denies any urinary issues. Renal calculi. She has undergone a kidney ultrasound. She has 1.3 cm renal calculi on her left kidney. She is unable to pass her renal calculi on her own. She has a urologist, but her appointment is not until 07/12/2024. She reports that during her ER visit due to her renal calculi, she was in the ER for 5 hours. She experienced nausea, dry heaves, and pain during that time. Emphysema. She has undergone a low dose CT scan, and results were discussed today with her. She does not have a rescue inhaler at home and has considered having it. She reports being hospitalized for symptoms of pneumonia in the past; however, she was informed that it was due to an allergy from her workplace. She was hospitalized for 5 days and was initially suspected of having a thrombus in her lung, but it was negative. Additional information. She reports enlarged lymph nodes during mammograms. She does not take vitamin D supplements. Her mother had diabetes. The patient believes her last tetanus booster was administered approximately 20 years ago. She received her tetanus booster today. Review of Systems PHQ Score Initial Depression Screen Score: 1 SCORE The pertinent positive and negative findings are as noted in the HPI. Physical Exam Vitals & Measurements T: 36.7 ?C(Temporal Artery) HR: 81(Peripheral) RR: 18 BP: 138/82 SpO2: 97% HT: 64 in HT: 162.2 cm WT: 104.9 kg WT: 230.78 lb BMI: 39. (more content not included)... Normal [facility] Comment on above: Result Comment: Elec tronically Signed By: Beatrice Ingram\.br\Date and Time Signed: 04/15/24 13:18 EDT\.br\Electronically Co-Signed By: Bayron Davalos\.br\Date and Time Co-Signed: 04/14/24 18:16 EDT Ambulatory Visit Summaryon 0 04-14-2024 Ambulatory Visit Summary MELBA ZAPATA Phillip :1955 Visit Date:04/14/2024 Ambulatory Visit Instructions Your Diagnosis Benign essential HTN Personal history of tobacco use Hyperlipidemia Vitamin D deficiency Abrasion, right lower leg, initial encounter Need for tetanus booster Gall stones Flank pain Emphysema of lung Class 3 severe obesity with serious comorbidity in adult Adult BMI 39.0-39.9 kg/sq m Your Care Team Attending Physician - Beatrice Ingram Primary Care Physician - Beatrice Ingram This Is Your Medications List albuterol (Albuterol (Eqv-ProAir HFA) 90 mcg/inh inhalation aerosol) cholecalciferol (cholecalciferol 50,000 intl units oral capsule) hydrochlorothiazide-lisin opril (hydrochlorothiazide-curtis nopril 25 mg-20 mg Tab) tiotropium (Spiriva HandiHaler 18 mcg inhalation capsule) Contact prescribing physician if questions or concerns buPROPion (Wellbutrin SR 150 mg Tab-ER) duloxetine (duloxetine 60 mg oral delayed release capsule) nicotine (nicotine 7 mg/24 hr Transderm ER Film) ondansetron (Zofran 4 mg Tab) Procedures Performed [...] TUBAL LIGATION. Discharge Vitals Temperature (Temporal Artery) 36.7 ?C Heart Rate (Peripheral) 81 Respiratory Rate 18 Blood Pressure 138/82 Height 162.2 cm Height 64 in Weight 104.9 kg Weight 230.78 lb BMI 39.87 What to do next Scheduled Follow-Up Appointments Friday 2:00 PM EDT With: ALFREDO CONSTANTINO, Antonio Srivastava Where: [facility] Invalid Interpretation Code [address], [place] [address]- \.br\ 2023 2:00 PM EDT \.br\ With: Beatrice Ingram\.br\ Where: [facility] Primary Care [facility] Ambulatory Visit Summary MELBA ZAPATA :1955 Visit Date:04/14/2024 Ambulatory Visit Instructions Your Diagnosis Benign essential HTN Personal history of tobacco use Hyperlipidemia Vitamin D deficiency Abrasion, right lower leg, initial encounter Need for tetanus booster Gall stones Flank pain Emphysema of lung Class 3 severe obesity with serious comorbidity in adult Adult BMI 39.0-39.9 kg/sq m Your Care Team Attending Physician - Beatrice Ingram Primary Care Physician - Beatrice Ingram This Is Your Medications List albuterol (Albuterol (Eqv-ProAir HFA) 90 mcg/inh inhalation aerosol) cholecalciferol (cholecalciferol 50,000 intl units oral capsule) hydrochlorothiazide-lisin opril (hydrochlorothiazide-curtis nopril 25 mg-20 mg Tab) tiotropium (Spiriva HandiHaler 18 mcg inhalation capsule) Contact prescribing physician if questions or concerns buPROPion (Wellbutrin SR 150 mg Tab-ER) duloxetine (duloxetine 60 mg oral delayed release capsule) nicotine (nicotine 7 mg/24 hr Transderm ER Film) ondansetron (Zofran 4 mg Tab) Procedures Performed [...] TUBAL LIGATION. Discharge Vitals Temperature (Temporal Artery) 36.7 ?C Heart Rate (Peripheral) 81 Respiratory Rate 18 Blood Pressure 138/82 Height 162.2 cm Height 64 in Weight 104.9 kg Weight 230.78 lb BMI 39.87 What to do next Scheduled Follow-Up Appointments Friday 2:00 PM EDT With: ALFREDO CONSTANTINO, Antonio Srivastava Where: [facility] [place] Invalid Interpretation Code [address], [place] [address]- \.br\ 2023 2:00 PM EDT \.br\ With: Beatrice Ingram\.br\ Where: [facility] Primary Care [facility] Patient Educationon 04-14-20 Patient Education Blood Pressure Recor d Sheet To take your blood pressure, you will need a blood pressure machine. You may be prescribed one, or you can buy a blood pressure machine (blood pressure monitor) at your clinic, drug store, or online. When choosing one, look for these features: ? An automatic monitor that has an arm cuff. ? A cuff that wraps snugly, but not too tightly, around your upper arm. You should be able to fit only one finger between your arm and the cuff. ? A device that stores blood pressure reading results. ? Do not choose a monitor that measures your blood pressure from your wrist or finger. Follow your health care provider's instructions for how to take your blood pressure. To use this form: ? Get one reading in the morning (a.m.) before you take any medicines. ? Get one reading in the evening (p.m.) before supper. ? Take at least two readings with each blood pressure check. This makes sure the results are correct. Wait 1?2 minutes between measurements. ? Write down the results in the spaces on this form. ? Repeat this once a week, or as told by your health care provider. ? Make a follow-up appointment with your health care provider to discuss the results. Blood pressure log Date: ? a.m. (1st reading) (2nd reading) ? p.m. (1st reading) (2nd reading) Date: ? a.m. (1st reading) (2nd reading) ? p.m. (1st reading) (2nd reading) Date: ? a.m. (1st reading) (2nd reading) ? p.m. (1st reading) (2nd reading) Date: ? a.m. (1st reading) (2nd reading) ? p.m. (1st reading) (2nd reading) Date: ? a.m. (1st reading) (2nd reading) ? p.m. (1st reading) (2nd reading) This information is not intended to replace advice given to you by your health care provider. Make sure you discuss any questions you have with your health care provider. Document Revised: 07/04/2022 Document Reviewed: 07/04/2022 [employer] Patient Education ? 2022 [employer] Cardiovascular Hypertension, Adult High blood pressure (hypertension) is when the force of blood pumping through the arteries is too strong. The arteries are the blood vessels that carry blood from the heart throughout the body. Hypertension forces the heart to work harder to pump blood and may cause arteries to become narrow or stiff. Untreated or uncontrolled hypertension can lead to a heart attack, heart failure, a stroke, kidney disease, and other problems. A blood pressure reading consists of a higher number over a lower number. Ideally, your blood pressure should be below 120/80. The first ( top ) number is called the systolic pressure. It is a measure of the pressure in your arteries as your heart beats. The second ( bottom ) number is called the diastolic pressure. It is a measure of the pressure in your arteries as the heart relaxes. What are the causes? The exact cause of this condition is not known. There are some conditions that result in high blood pressure. What increases the risk? Certain factors may make you more likely to develop high blood pressure. Some of these risk factors are under your control, including: ? Smoking. ? Not getting enough exercise or physical activity. ? Being overweight. ? Having too much fat, sugar, calories, or salt (sodium) in your diet. ? Drinking too much alcohol. Other risk factors include: ? Having a personal history of heart disease, diabetes, high cholesterol, or kidney disease. ? Stress. ? Having a family history of high blood pressure and high cholesterol. ? Having obstructive sleep apnea. ? Age. The risk increases with age. What are the signs or symptoms? High blood pressure may not cause symptoms. Very high blood pressure (hypertensive crisis) may cause: ? Headache. ? Fast or irregular heartbeats (palpitations). ? Shortness of breath. ? Nosebleed. ? Nausea and vomiting. ? Vision changes. ? Severe chest pain, dizziness, and seizures. How is this diagnosed? This condition is diagnosed by measuring your blood pressure while you are seated, with your arm resting on a flat surface, your legs uncrossed, and your feet flat on the floor. The cuff of the blood pressure monitor will be placed directly against the skin of your upper arm at the level of your heart. Blood pressure should be measured at least twice using the same arm. Certain conditions can cause a difference in blood pressure between your right and left arms. If you have a high blood pressure r (more content not included)... Normal [facility] CT Chest, Low Dose Screening on 04-07-2024 CT Chest, Low Dose Screening Exam Date/Time: 04/02/2024 08:53 EDT Reason for Exam: Lung cancer screening, >= 20 pk-yr smoking history;Other (please specify) Report IMPRESSION: LUNG RADS CATEGORY 2-S, BENIGN IMAGING FEATURES. POTENTIALLY SIGNIFICANT FINDINGS. THERE ARE A FEW PROMINENT AXILLARY AND DISTAL LYMPH NODES AND THERE ARE FINDINGS OF CHRONIC LUNG DISEASE. PLEASE REFER TO THE COMMENT. CONTINUE ANNUAL SCREENING WITH LOW DOSE CT IN 12 MONTHS. CLINICAL HISTORY: Lung cancer screening, >= 20 pk-yr smoking history COMMENT: Unenhanced images were obtained per the low dose screening protocol. There is tortuosity of the descending thoracic aorta. The thoracic aorta is normal in diameter, without evidence of aneurysm. The heart is within normal limits in size. There is coronary artery calcification. A small amount of pericardial fluid is present. There are bilateral axillary lymph nodes, most are small, but a few prominent. There is a right axillary lymph node, with long axis diameter of 2.2 cm and short axis diameter of 0.9 cm, and another right axillary lymph node has long axis diameter of 1.2 cm and short axis diameter of 0.7 cm. There is a prominent left axillary lymph node, with long axis diameter of 1.5 cm and short axis diameter of 1.2 cm. There are mediastinal lymph nodes, most are small, but some are mildly prominent. The largest mediastinal lymph nodes are a pretracheal lymph node, with long axis diameter of 1.5 cm and short axis diameter of 0.9 cm, and an anterior mediastinal lymph node, with long axis diameter of 1.5 cm and short axis diameter of 0.7 cm. These prominent axillary and mediastinal lymph nodes are nonspecific, and in the absence of visualized mass are considered reactive, but with neoplastic nodes not be excluded on the basis of this study. No hilar lymphadenopathy is noted. There are some peripheral emphysematous bulla and there is more extensive centrilobular emphysema. There are coarsely increased interstitial lung markings in portions of both lungs, suggesting fibrotic process. There are scattered areas of groundglass opacification, more prominent in the upper lobes, especially the posterior right upper lobe. Ground glass opacifications are nonspecific, but may be inflammatory in nature. No consolidated airspace opacification is noted. There is a 0.3 cm noncalcified nodule in the periphery of the subapical right upper lobe. There is a tiny calcified granuloma in the posterolateral periphery of the left lower lobe. No large lung nodule nor mass is evident. No bronchiectasis, no pneumothorax, nor pleural effusion is evident. There is thoracic spondylosis, with multilevel hypertrophic spurring. There is thoracic dextroscoliosis. All CT scans at this facility use dose modulation, iterative reconstruction, and/or weight based dosing when appropriate to reduce radiation dose to as low as reasonably achievable. Low dose cancer screening should be continued. The presence of pulmonary emphysema on CT is an independent risk factor for lung cancer. Report Ordering Provider: Beatrice Barnes FINAL REPORT Dictated: 04/07/2024 10:06 am Chas Stevens M.D. Signed (Electronic Signature): 04/07/2024 10:06 am Signed by: Chas Stevens M.D. Transcribed by: PRIMO Technologist: KRYSTIN [facility] US Abdomen Completeon 2023 US Abdomen Complete Exam Date/Time: 04/02/2024 08:53 EDT Reason for Exam: R10.9;Pain Report IMPRESSION: HEPATIC STEATOSIS. CHOLELITHIASIS. NONOBSTRUCTING LEFT RENAL CALCULUS. EXAMINATION: US Abdomen Complete HISTORY: History of kidney stones. Right flank pain. Nausea. COMPARISON: CT abdomen pelvis 08/30/2019 TECHNIQUE: Ultrasound evaluation was performed of the right upper quadrant of the abdomen FINDINGS: Increased echogenicity of liver. Normal contour of the liver. No liver lesion or intrahepatic biliary dilatation identified. Liver length measured at approximately 16.4 cm. The gallbladder is physiologically distended and contains a 2 cm gallstone. No pericholecystic fluid. Gallbladder wall thickness is normal measured at approximately 1.4 mm. Common bile duct is normal measuring approximately 5.1 mm in diameter. No overt abnormality of the pancreas. The right kidney measures 11.4 cm in length with a cortical thickness of 1.2 cm and the left kidney measures 11 cm in length with a cortical thickness of 1.6 in meters. Corticomedullary differentiation is maintained. No solid or cystic renal lesions. A shadowing focus within the mid aspect of the left kidney measures approximately 1.3 cm and likely represents a nonobstructing calculus. No hydronephrosis. The spleen is normal in size and echogenicity measuring 12.3 cm in length. Ordering Provider: Beatrice Barnes FINAL REPORT Dictated: 04/06/2024 3:46 pm Leopoldo Estrada DO Signed (Electronic Signature): 04/06/2024 3:46 pm Signed by: Leopoldo Estrada DO Transcribed by: PRIMO Technologist: JEAN PAUL [facility] C Urineon 04-04-2024 Bacteria identified Cx Nom (U) Microbiology PROCEDURE: Urine Culture [R1] SOURCE: U CleanCatch BODY SITE: COLLECTED DATE/TIME: 04/02/2024 09:00 EDT RECEIVED DATE/TIME: 04/02/2024 11:01 EDT START DATE/TIME: 04/02/2024 11:01 EDT FREE TEXT SOURCE: Beatrice Ingram Elizabeth L FINAL REPORTS Final Report [] Verified Date/Time: 04/04/2024 06:56 EDT 50,000 cfu/ml Streptococcus agalactiae (Group B) Presumptive Penicillin is the drug of choice for Beta Hemolytic Streptococci Isolates. Routine susceptibility testing on Beta Hemolytic Streptococcus isolates is no longer performed. Susceptibilities will continue to be performed on Isolates from sterile body fluids and serious wound infections. <10,000 cfu/ml Mixed skin contaminants Performing Locations R1: This test was performed at: [facility], [address] [place] [address], [id number], [facility] Comment on above: Performed By: #### 2 [id number] #### [facility] [address] [place] [address] Performed By: #### 2 [id number] ####[facility] [id number] [place] [address] CBC w/ Auto Diffon 4 Basophils/100 WBC (Bld) 0.7 % Normal 0.0-2.0 [facility] Comment on above: Performed By: #### 2 [id number] #### [facility] [address] [place] [address] Basophils/Leukocyte s Auto (Bld) [Pure # fraction] 0.1 E9/L Normal 0.0-0.2 [facility] Comment on above: Performed By: #### 2 [id number] #### [facility] [address] [place] [address] Eosinophils (Bld) [#/Vol] 0.4 E9/L Normal 0.0-0.5 [facility] Comment on above: Performed By: #### 2 [id number] #### [facility] [address] [place] [address] Eosinophils/100 WBC (Bld) 4.2 % Normal 0.0-8.0 [facility] Comment on above: Performed By: #### 2 [id number] #### [facility] [address] [place] [address] Erythrocyte distribution width (RBC) [Ratio] 13.3 % Normal 10.9-14.2 [facility] Comment on above: Performed By: #### 2 [id number] #### [facility] [address] [place] [address] Hematocrit (Bld) [Volume fraction] 46.7 % High 34.0-46.0 [facility] Comment on above: Performed By: #### 2 [id number] #### [facility] [address] [place] [address] Hemoglobin (Bld) [Mass/Vol] 15.9 g/dL Normal 12.0-16.0 [facility] Comment on above: Performed By: #### 2 [id number] #### [facility] [address] [place] [address] Lymphocytes (Bld) [#/Vol] 2.1 E9/L Normal 1.0-4.0 [facility] Comment on above: Performed By: #### 2 [id number] #### [facility] [address] [place] [address] Lymphocytes/100 WBC (Bld) 21.8 % Normal 14.0-50.0 [facility] Comment on above: Performed By: #### 2 [id number] #### [facility] [address] [place] [address] MCH (RBC) [Entitic mass] 31.6 pg Normal 27.0-34.0 [facility] Comment on above: Performed By: #### 2 [id number] #### [facility] [address] [place] [address] MCHC (RBC) [Mass/Vol] 34.1 g/dL Normal 31.4-36.0 [facility] Comment on above: Performed By: #### 2 [id number] #### [facility] [address] [place] [address] MCV (RBC) [Entitic vol] 92.5 fL Normal 80.0-100.0 [facility] Comment on above: Performed By: #### 2 [id number] #### [facility] [address] [place] [address] Monocytes (Bld) [#/Vol] 0.7 E9/L Normal 0.2-1.0 [facility] Comment on above: Performed By: #### 2 [id number] #### [facility] [address] [place] [address] Neutrophils (Bld) [#/Vol] 6.5 E9/L Normal 2.0-7.5 [facility] Comment on above: Performed By: #### 2 [id number] #### [facility] [address] [place] [address] Neutrophils/100 WBC (Bld) 66.0 % Normal 36.0-75.0 [facility] Comment on above: Performed By: #### 2 [id number] #### [facility] [address] [place] [address] Platelet mean volume (Bld) [Entitic vol] 7.9 fL Normal 6.4-10.8 [facility] Comment on above: Performed By: #### 2 [id number] #### [facility] [address] [place] [address] Platelets (Bld) [#/Vol] 284.0 E9/L Normal 150.0-500.0 [facility] Comment on above: Performed By: #### 2 [id number] #### [facility] [address] [place] [address] RBC (Bld) [#/Vol] 5.1 E12/L Normal 4.3-5.9 [facility] Comment on above: Performed By: #### 2 [id number] #### [facility] [address] [place] [address] WBC corrected for nucl RBC Auto (Bld) [#/Vol] 9.9 E9/L Normal 4.0-11.0 [facility] Comment on above: Performed By: #### 2 [id number] #### [facility] [address] [place] [address] CHEMISTRYOrdered By: SYSTEM SYSTEM on 04-02-2024 25-hydroxyvitamin D3 [Mass/Vol] 22.9 ng/mL Low 30.0 - 100.0 ng/mL [facility] Albumin [Mass/Vol] 4.3 g/dL Normal 3.3 - 5.0 gm/dL R emisol Chem Albumin/Globulin [Mass ratio] 1.5 {ratio} Normal 1.1 - 2.2 [facility] ALP [Catalytic activity/Vol] 88 [iU]/d Normal 21 - 98 Int._Unit/L [facility] ALT No additional P-5'-P [Catalytic activity/Vol] 15 [iU]/d Normal 6 - 46 Int._Unit/L [facility] Anion gap [Moles/Vol] 10 mmol/L Normal 6 - 16 mEq/L [facility] AST [Catalytic activity/Vol] 17 [iU]/d Normal 5 - 43 Int._Unit/L [facility] Bilirubin [Mass/Vol] 0.6 mg/dL Normal 0.0 - 1.1 mg/dL [facility] Calcium [Mass/Vol] 9.1 mg/dL Normal 8.9 - 11. 1 mg/dL [facility] Chloride [Moles/Vol] 107 mmol/L Normal 101 - 111 mmol/L [facility] Cholesterol [Mass/Vol] 192 mg/dL Normal 120 - 200 mg/dL [facility] Cholesterol in HDL [Mass/Vol] 46 mg/dL Invalid Interpretation Code [facility] Comment on above: Result Comment: '>= 60 LOW RISK' '<= 40 HIGH RISK' Cholesterol in LDL [Mass/Vol] 132 mg/dL High <=129mg/dL [facility] Cholesterol in VLDL [Mass/Vol] 22 mg/dL Normal 7 - 40 mg/dL [facility] CO2 [Moles/Vol] 27 mmol/L Normal 21 - 31 mmol/L Remis ol Chem Creatinine [Mass/Vol] 1.0 mg/dL Normal 0.5 - 1.3 mg/dL [facility] eGFR 61 mL/min/1.73 m2 Normal >=59mL/min /1.73 m2 [facility] Free T4 [Mass/Vol] 0.87 ng/dL Normal 0.58 - 1. 64 ng/dL [facility] Globulin (S) [Mass/Vol] 2.8 g/dL Normal 1.4 - 4.0 gm/dL [facility] Glucose [Mass/Vol] 95 mg/dL Normal 55 - 199 mg/dL Re misol Chem Lipase [Catalytic activity/Vol] 18 U/L Normal 13 - 58 unit/L [facility] Potassium [Moles/Vol] 4.0 mmol/L Normal 3.5 - 5.3 mmol/L [facility] Protein [Mass/Vol] 7.1 g/dL Normal 6.0 - 7.8 gm/dL R emisol Chem Sodium [Moles/Vol] 140 mmol/L Normal 135 - 145 mmol/L [facility] Triglyceride [Mass/Vol] 110 mg/dL Normal <=149mg/dL [facility] TSH Qn 2.99 m[IU]/L Normal 0.34 - 5.60 mcIU/mL [facility] Urea nitrogen [Mass/Vol] 21 mg/dL Normal 5 - 21 mg/dL [facility] Urea nitrogen/Creatinine [Mass ratio] 21 mg/mg High 10 - 20 [facility] CHEMISTRYOrdered By: Karo Araiza on 04-02-2024 HbA1c (Bld) [Mass fraction] 5.6 % Normal <=5.9% [facility] ChemAutoSS CMPon 04-02-2024 Albumin [Mass/Vol] 4.3 g/dL Normal 3.3-5.0 [facility] Comment on above: Performed By: #### 2 [id number] #### [facility] [address] [place] [address] Albumin/Globulin (S) [Mass conc ratio] 1.5 Normal 1.1-2.2 [facility] Comment on above: Performed By: #### 2 [id number] #### [facility] [address] [place] [address] ALP [Catalytic activity/Vol] 88 Int._Unit/L Normal 21-98 [facility] Comment on above: Performed By: #### 2 [id number] #### [facility] [address] [place] [address] ALT No additional P-5'-P [Catalytic activity/Vol] 15 Int._Unit/L Normal 6-46 [facility] Comment on above: Performed By: #### 2 [id number] #### [facility] [address] [place] [address] AST [Catalytic activity/Vol] 17 Int._Unit/L Normal 5-43 [facility] Comment on above: Performed By: #### 2 [id number] #### [facility] [address] [place] [address] Bilirubin [Mass/Vol] 0.6 mg/dL Normal 0.0-1.1 [facility] Comment on above: Performed By: #### 2 [id number] #### [facility] [address] [place] [address] Calcium [Mass/Vol] 9.1 mg/dL Normal 8.9-11.1 [facility] Comment on above: Performed By: #### 2 940353 #### [facility] [address] [place] [address] Chloride [Moles/Vol] 107 mmol/L Normal 101-111 [facility] Comment on above: Performed By: #### 2 [id number] #### [facility] [address] [place] [address] Creatinine [Mass/Vol] 1.0 mg/dL Normal 0.5-1.3 [facility] Comment on above: Performed By: #### 2 [id number] #### [facility] [address] [place] [address] Globulin (S) [Mass/Vol] 2.8 g/dL Normal 1.4-4.0 [facility] Comment on above: Performed By: #### 2 704476 #### [facility] [address] [place] [address] Glucose [Mass/Vol] 95 mg/dL Normal 55-199 [facility] Comment on above: Performed By: #### 2 550339 #### [facility] [address] [place] [address] Potassium [Moles/Vol] 4.0 mmol/L Normal 3.5-5.3 [facility] Comment on above: Performed By: #### 2 [id number] #### [facility] [address] [place] [address] Protein [Mass/Vol] 7.1 g/dL Normal 6.0-7.8 [facility] Comment on above: Performed By: #### 2 953776 #### [facility] [address] [place] [address] Sodium [Moles/Vol] 140 mmol/L Normal 135-145 [facility] Comment on above: Performed By: #### 2 954145 #### [facility] [address] [place] [address] Urea nitrogen [Mass/Vol] 21 mg/dL Normal 5-21 [facility] Comment on above: Performed By: #### 2 768381 #### [facility] [address] [place] [address] Urea nitrogen/Creatinine [Mass ratio] 21 No Units High 10-20 [facility] Comment on above: Performed By: #### 2 [id number] #### [facility] [address] [place] [address] Anion gap [Moles/Vol] 10 mmol/L Normal 6-16 [facility] Comment on above: Performed By: #### 2 [id number] #### [facility] [address] [place] [address] CO2 [Moles/Vol] 27 mmol/L Normal - [facility] Comment on above: Performed By: #### 2 [id number] #### [facility] [address] [place] [address] Consent for Treatmenton 03-05 Consent for Treatment [id number] Normal [facility] Free T4on 04-02-2024 Free T4 [Mass/Vol] 0.87 ng/dL Normal 0.58-1.64 [facility] Comment on above: Performed By: #### 2 [id number] #### [facility] [address] [place] [address] HEMATOLOGYOrdered By: SYSTEM SYSTEM on 04-02-2024 Basophils/100 WBC (Bld) 0.7 % Normal 0.0 - 2.0 % [facility] Basophils/Leukocyte s Auto (Bld) [Pure # fraction] 0.1 E9/L Normal 0.0 - 0.2 E9/L [facility] Eosinophils (Bld) [#/Vol] 0.4 E9/L Normal 0.0 - 0.5 E9/L [facility] Eosinophils/100 WBC (Bld) 4.2 % Normal 0.0 - 8.0 % [facility] Erythrocyte distribution width (RBC) [Ratio] 13.3 % Normal 10.9 - 14.2 % [facility] Hematocrit (Bld) [Volume fraction] 46.7 % High 34.0 - 46.0 % [facility] Hemoglobin (Bld) [Mass/Vol] 15.9 g/dL Normal 12.0 - 16.0 gm/dL [facility] Lymphocytes (Bld) [#/Vol] 2.1 E9/L Normal 1.0 - 4.0 E9/L [facility] Lymphocytes/100 WBC (Bld) 21.8 % Normal 14.0 - 50.0 % [facility] MCH (RBC) [Entitic mass] 31.6 pg Normal 27.0 - 34.0 pg [facility] MCHC (RBC) [Mass/Vol] 34.1 g/dL Normal 31.4 - 36.0 gm/dL [facility] MCV (RBC) [Entitic vol] 92.5 fL Normal 80.0 - 100.0 fL [facility] Monocytes (Bld) [#/Vol] 0.7 E9/L Normal 0.2 - 1.0 E9/L [facility] Monocytes/100 WBC (Bld) 7.3 % Normal 4.0 - 14.0 % [facility] Neutrophils (Bld) [#/Vol] 6.5 E9/L Normal 2.0 - 7.5 E9/L [facility] Neutrophils/100 WBC (Bld) 66.0 % Normal 36.0 - 75.0 % [facility] Platelet mean volume (Bld) [Entitic vol] 7.9 fL Normal 6.4 - 10.8 fL [facility] Platelets (Bld) [#/Vol] 284.0 E9/L Normal 150.0 - 500.0 E9/L [facility] RBC (Bld) [#/Vol] 5.1 E12/L Normal 4.3 - 5.9 E12/L Re misol Heme WBC corrected for nucl RBC Auto (Bld) [#/Vol] 9.9 E9/L Normal 4.0 - 11.0 E9/L [facility] HEMATOLOGYOrdered By: Vale Malcolm on 04-02-2024 ESR (Bld) [Velocity] 13 mm/h Normal 0 - 34 mm/hr [facility] HemeAutoSS [id number] 04-02-2024 HbA1c (Bld) [Mass fraction] 5.6 % Normal <=5.9 [facility] Comment on above: Performed By: #### 7 [id number] #### [facility] [address] [place] [address] Lipase Levelon 04-02-2024 Lipase [Catalytic activity/Vol] 18 U/L Normal 13-58 [facility] Comment on above: Performed By: #### 2 [id number] #### [facility] [address] [place] [address] Lipid Panelon 04-02-2024 Cholesterol [Mass/Vol] 192 mg/dL Normal 120-200 [facility] Comment on above: Performed By: #### 2 [id number] #### [facility] [address] [place] [address] Cholesterol in HDL [Mass/Vol] 46 mg/dL Invalid Interpretation Code [facility] Comment on above: Result Comment: '>= 60 LOW RISK' '<= 40 HIGH RISK' Performed By: #### 2 [id number] #### [facility] [address] [place] [address] Cholesterol in LDL [Mass/Vol] 132 mg/dL High <=129 [facility] Comment on above: Performed By: #### 2 [id number] #### [facility] [address] [place] [address] Cholesterol in VLDL [Mass/Vol] 22 mg/dL Normal 7-40 [facility] Comment on above: Performed By: #### 2 288289 #### [facility] [address] [place] [address] Triglyceride [Mass/Vol] 110 mg/dL Normal <=149 [facility] Comment on above: Performed By: #### 2 [id number] #### [facility] [address] [place] [address] Sed Rate Automatedon 024 ESR (Bld) [Velocity] 13 mm/h Normal 0-34 [facility] Comment on above: Performed By: #### 1 [id number] #### [facility] [address] [place] [address] TSHon 04-02-2024 TSH Qn 2.99 m[IU]/L Normal 0.34-5.60 [facility] Comment on above: Performed By: #### 2 [id number] #### [facility] [address] [place] [address] UA With Cult Reflexon 2023 Type of Urine collection method Clean Catch Normal [facility] Comment on above: Performed By: #### 1 [id number] #### [facility] [address] [place] [address] Clarity (U) Clear Normal Clear [facility] Comment on above: Performed By: #### 1 [id number] #### [facility] [address] [place] [address] Color (U) Yellow Normal Yellow [facility] Comment on above: Result Comment: Micr oscopic readings are only performed on those samples that meet specific criteria set forth by [facility]. Performed By: #### 1 [id number] #### [facility] [address] [place] [address] Epithelial cells.squamous Auto (Urine sed) [#/Area] 9-10 Abnormal 0-2 [facility] Comment on above: Performed By: #### 1 [id number] #### [facility] [address] [place] [address] Leukocyte esterase Auto test strip Ql (U) 500 Carlitos/uL Abnormal Negative [facility] Comment on above: Performed By: #### 1 [id number] #### [facility] [address] [place] [address] Mucus Auto Ql (U) Trace Normal Negative [facility] Comment on above: Performed By: #### 1 [id number] #### [facility] [address] [place] [address] pH (U) 6.5 [pH] Invalid Interpretation Code 5.0-9.0 [facility] Comment on above: Performed By: #### 1 [id number] #### [facility] [address] [place] [address] RBC Ql (U) 4-20 Abnormal 0-3 [facility] Comment on above: Performed By: #### 1 [id number] #### [facility] [address] [place] [address] Specific gravity (U) [Rel density] 1.020 Invalid Interpretation Code 1.005-1.030 [facility] Comment on above: Performed By: #### 1 [id number] #### [facility] [address] [place] [address] WBC Auto (Urine sed) [#/Area] 16-25 Abnormal 0-5 [facility] Comment on above: Performed By: #### 1 [id number] #### [facility] [address] [place] [address] UA With Cult ReflexOrdered B y: SYSTEM SYSTEM on 04-02-2024 Bilirubin Ql (U) Negative Normal Negative [facility] Auto SS Comment on above: Performed By: #### 1 [id number] #### [facility] [address] [place] [address] Glucose Ql (U) Negative Normal Negative [facility] Auto SS Comment on above: Performed By: #### 1 [id number] #### [facility] [address] [place] [address] Hemoglobin Auto test strip (U) [Mass/Vol] Negative Normal Negative [facility] UA Auto SS Comment on above: Performed By: #### 1 [id number] #### [facility] [address] [place] [address] Ketones Auto test strip Ql (U) Negative Normal Negative [facility] UA Auto SS Comment on above: Performed By: #### 1 [id number] #### [facility] [address] [place] [address] Nitrite Auto test strip Ql (U) Negative Normal Negative [facility] UA Auto SS Comment on above: Performed By: #### 1 [id number] #### [facility] [address] [place] [address] Protein Ql (U) Negative Normal Negative [facility] Auto SS Comment on above: Performed By: #### 1 [id number] #### [facility] [address] [place] [address] Urobilinogen (U) [Mass/Vol] Negative Normal Negative [facility] UA Auto SS Comment on above: Performed By: #### 1 [id number] #### [facility] [address] [place] [address] URINALYSISOrdered By: SYSTEM SYSTEM on 04-02-2024 Clarity (U) Clear (04/02/24 9:00 AM) Normal Clear [facility] UA Auto SS Color (U) Yellow 1 (04/02/24 9:00 AM) Normal Yellow [facility] UA Auto SS Comment on above: Interpretive Data: M icroscopic readings are only performed on those samples that meet specific criteria set forth by [facility]. Epithelial cells.squamous Auto (Urine sed) [#/Area] 9-10 graded/HPF Invalid Interpretation Code 0-2graded/HPF [facility] UA Auto SS Leukocyte esterase Auto test strip Ql (U) 500 Carlitos/uL Carlitos/uL Invalid Interpretation Code NegativeLeu/uL [facility] UA Auto SS Mucus Auto Ql (U) Trace graded/LPF Normal Negati vegraded/ LPF [facility] UA Auto SS pH (U) 6.5 *NA* (04/02/24 9:00 AM) Invalid Interpretation Code 5.0 - 9.0 [facility] UA Auto SS RBC Ql (U) 4-20 graded/HPF Invalid Interpretation Code 0-3graded/HPF [facility] UA Auto SS Specific gravity (U) [Rel density] 1.020 *NA* (04/02/24 9:00 AM) Invalid Interpretation Code 1.005 - 1.030 [facility] UA Auto SS WBC Auto (Urine sed) [#/Area] 16-25 graded/HPF Invalid Interpretation Code 0-5graded/HPF [facility] UA Auto SS URINALYSISOrdered By: Karo Araiza on 04-02-2024 UA Spec Desc Clean Catch (04/02/24 9:00 AM) Normal [facility] UA Auto SS Vitamin D 25 Hydroxyon 04-02 25-hydroxyvitamin D3 [Mass/Vol] 22.9 ng/mL Low 30.0-100.0 [facility] Comment on above: Performed By: #### 5 [id number] #### [facility] [address] [place] [address] eGFRon 04-02-2024 eGFR 61 mL/min/1.73 m2 Normal >=59 [facility] Comment on above: Order Comment: Order added by Discern Expert. Performed By: #### 1 [id number] #### [facility] [address] [place] [address] Ambulatory Visit Summaryon 0 03-19-2024 Ambulatory Visit Summary MELBA ZAPATA :1955 Visit Date:03/19/2024 Ambulatory Visit Instructions Your Diagnosis Benign essential HTN Hydronephrosis with renal and ureteral calculous obstruction Hyperlipidemia Personal history of tobacco use Major depressive disorder, recurrent, mild Adult BMI 39.0-39.9 kg/sq m Class 3 severe obesity with serious comorbidity in adult Your Care Team Attending Physician - Beatrice Ingram Primary Care Physician - Beatrice Ingram This Is Your Medications List buPROPion (Wellbutrin SR 150 mg Tab-ER) duloxetine (duloxetine 60 mg oral delayed release capsule) hydrochlorothiazide-lisin opril (hydrochlorothiazide-curtis nopril 12.5 mg-10 mg Tab) nicotine (nicotine 7 mg/24 hr Transderm ER Film) Contact prescribing physician if questions or concerns ondansetron (Zofran 4 mg Tab) Procedures Performed [...] (Temporal Artery) 36.5 ?C Heart Rate (Peripheral) 79 Respiratory Rate 18 Blood Pressure 146/98 Height 162.2 cm Height 64 in Weight 103.9 kg Weight 228.58 lb BMI 39.49 What to do next Scheduled Follow-Up Appointments Friday 2:30 PM EDT Where: [facility] Primary Care Normal Hydronephrosis with renal and ureteral calculous obstruction, pp_set_radiolog y_subspecialty, Not Required, [facility]\.br\ Medications\.br \ What How Much When Why Instructions\.b r\ New hydrochlorothia zide-lisinopril (hydrochlorothi azide-lisinopri l 12.5 mg-10 mg Tab) 1 Tablets By Mouth Every day Benign essential HTN Pickup at [facility]\.br\ New nicotine (nicotine 7 mg/ 24 hr Transderm ER Film) 1 Patches Topical Every day Personal history of tobacco use Refills: 1 Pickup at [facility]\.br\ Unchanged buPROPion (Wellbutrin SR 150 mg Tab-ER) 1 Tablets By Mouth 2 times a day Depression Other obesity Personal history of tobacco use Pickup at [facility]\.br\ Unchanged duloxetine (duloxetine 60 mg oral delayed release capsule) 1 Capsules By Mouth Every day Anxiety Depression Pickup at [facility]\.br\ Unchanged ondansetron (Zofran 4 mg Tab) 1 Tablets By Mouth Every 8 hours as needed for Nausea/Vomiting Worsening headaches Contact prescribing physician if questions or concerns \.br\ Pharmacy Information\.br \ [facility]: [address] [place], [place] [id number] [phone]\.br\ Allergies\.br\ Contrast Dye (Swelling, Hives)\.br\ adhesives (redness)\.br\ penicillins (Passed out, Hives)\.br\ Problems\.br\ Ongoing - Any problem that you are currently receiving treatment for.\.br\ Benign essential HTN\.br\ Cervical spine degeneration\.b r\ Class 3 severe obesity with serious comorbidity in adult\.br\ Fatigue\.br\ FHx: thyroid cancer\.br\ Flank pain\.br\ Fracture of right wrist with routine healing\.br\ Gall stones\.br\ Herniated cervical disc\.br\ Hip pain, left\.br\ Hydronephrosis\ .br\ Hyperglycemia\. br\ Hyperlipidemia\ .br\ Kidney stones\.br\ Major depressive disorder, recurrent, mild\.br\ Nocturia\.br\ Osteopenia\.br\ Patient had no falls in past year\.br\ Personal history of tobacco use\.br\ Screening for breast cancer\.br\ Sinus congestion\.br\ Smoker\.br\ Urge incontinence\.b r\ Urinary urgency\.br\ Vitamin D deficiency\.br\ Wellness examination\.br \ Worsening headaches\.br\ Historical - Any problem that you are no longer receiving treatment for.\.br\ Anxiety\.br\ Asthma\.br\ BMI 37.0-37.9, adult\.br\ Sicca syndrome\.br\ Smoker\.br\ Tobacco abuse\.br\ Patient Survey\.br\ You may receive a survey via text or e-mail asking about your office visit. Please share your experience with us by completing your survey. We appreciate your feedback and thank you for choosing us for your care.\.br\ \.br\ [facility] Family Medicine Office/Clini c Noteon 03-19-2024 Family Medicine Office/Clinic Note Chief Complaint Med Check HPI Staff Patient is here for follow up on hypertension. How often are you checking your blood pressure? Doesnt check BP at home Are you compliant with your diet? no Do you exercise? no Are you compliant with your medications or having difficulty affording your medications? no Have you had any ER visits or hospitalizations since last visit:No Have you had any recent cardiopulmonary testing: No Do you have side effects from the medication? None Do you have any of the following symptoms? Chest Pain? no Palpitations? no DIAZ/SOB? yes upon exertion Headache? no Peripheral Edema? no Light Headedness? no History of Present Illness I have reviewed and discussed the HPI (staff) with the patient today. Information was verified and is correct. Additional information provided if needed. Melba Zapata is a 69-year-old female who is here for follow-up for hypertension. Chart review. The last time I saw her was back in 12/2023. She established care with me for hypertension, depression, and hyperlipidemia. At that time, her LISBETH score was a 2 and her PHQ-9 was a 10. Today, her depression score is a 6. I did order labs on her CBC, CMP, hemoglobin A1c, TSH, vitamin D, T4, lipid panel, sedimentation rate, urinalysis, and lipase. I ordered a mammogram for her. I did place a referral for neurosurgery due to cervical spine degeneration. I recommended Dr. Dino Haynes. She thinks she needs cervical spine surgery. I had previously ordered also a renal ultrasound to follow up on a history of kidney stones and a low-dose chest screening for smoking history, but they were somehow canceled for some reason because the patient was supposed to fast for the renal ultrasound, and she did not. I will reorder that due to the history of kidney stones. History of gallstone/kidney stones. She queries the location of her gall bladder and mentions her significant gallstone. She continues to experience dull pain and is unsure if the pain is from gallbladder or her kidney. Hypertension. Her blood pressure was elevated during today's visit, 03/19/2024. Her blood pressure was also elevated at work today. Her diet on 03/18/2024 consisted of pork and onion rings. She also consumed a drink called MagMe, a deviation from her usual consumption. She experienced a significant weight loss, discontinued her antihypertensive medication, but has since regained weight. She experiences frequent headaches but denies any vision changes or slurred speech. She is not aware if she has sleep apnea. She was previously on Norvasc 5 mg for her blood pressure. She experiences ankle swelling at the end of the day, which subsides with elevation. Pain medication. She has pain medication from her surgery, which she did not take, and is unsure of where to take them. 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 Weight loss management. She inquired about weight loss medication if her blood pressure stabilizes. She declined the use of Ozempic due to its potential to induce nausea and vomiting. Depression. She requires refills of Wellbutrin and duloxetine. She feels better with Wellbutrin and Cymbalta. She takes Wellbutrin at night, which aids her sleep but induces fatigue. She does not notice the same issue when she takes it in the morning. She reports that when she forgets to take it at night, her sleep quality decreases. Additional information/ROS. She consistently experiences dry mouth and lips. She acknowledges inadequate water intake. She experiences chest pain and shortness of breath when ascending stairs, which she attributes to her knee condition. She occasionally experiences wheezing and occasionally coughs up phlegm, predominantly in the mornings. Her father had a perforated ulcer. Her mother was on dialysis for 3 years due to elevated blood sugar levels. She takes Zofran as needed for nausea. She is allergic to PENICILLIN. Review of Systems PHQ Score Initial Depression Screen Score: 0 SCORE The pertinent positive and negative findings are as noted in the HPI. Physical Exam Vitals & Measurements T: 36.5 ?C(Temporal Artery) HR: 79(Peripheral) RR: 18 BP: 146/98 SpO2: 97% HT: 64 in HT: 162.2 cm WT: 103.9 kg WT: 228.58 lb BMI: 39.49 General: alert?, no acute? distress, well?appearing, _?pleasant, older female Skin: warm?, dry?, intact Head: no? trauma, normocephalic? Neck: Trachea midline?, no? adenopathy, no? tenderness Eye: normal? conjunctiva, sclera clear?, _?PERRLA ENMT: TM's clear?, oral mucosa moist?, no? pharyngeal erythema or exudate, normal?dentition Cardiovascular: regular? rate and rhythm, normal? peripheral perfusion, no?edema Respiratory: Rhonchorous, mild expiratory wheezing bilaterally noted to the lung sounds. Chest wall: no? deformity, non?tender Gastrointestinal: Mild tenderness to palpation over the umbilicus region with negative [place] Sydney sign, negative Pate's sign. Back: No? tenderness, Normal? ROM, (more content not included)... Normal [facility] Comment on above: Result Comment: Elec tronically Signed By: Beatrice Ingram\.br\Date and Time Signed: 03/19/24 18:34 EDT\.br\Electronically Co-Signed By: Lyndsay Hutchins\.br\Date and Time Co-Signed: 03/19/24 18:25 EDT Patient Educationon 03-19-20 Patient Education Heart Disease Preven tion Heart disease is the leading cause of [...] many unpleasant symptoms and complications, such as: ? Chest pain (angina). ? Reduced or blocked blood flow to your heart. This can cause: ? Irregular heartbeats (arrhythmias). ? Heart attack. ? Heart failure. What can increase my risk? The following factors may make you more likely to develop this condition: ? High blood pressure (hypertension). ? High cholesterol. ? A diet high in saturated fats or trans fats. ? Obesity. ? Diabetes. ? Having a family history of heart disease. ? Certain lifestyle factors, including: ? Smoking. ? Lack of physical activity. ? Drinking too much alcohol. What actions can I take to prevent heart disease? Nutrition ? Follow a heart-healthy eating plan as told by your health care provider. Examples include the DASH eating plan. DASH stands for Dietary Approaches to Stop Hypertension. ? Generally, it is recommended that you: ? Eat less salt (sodium). Ask your health care provider how much sodium is safe for you. Most people should have less than 2,300 mg each day. ? Limit unhealthy fats, such as saturated and trans fats, in your diet. You can do this by eating low-fat dairy products, eating less red meat, and avoiding processed foods. ? Eat healthy fats (omega-3 fatty acids). These are found in fish, such as mackerel or salmon. ? Eat more fruits and vegetables. You should try to fill one-half of your plate with fruits and vegetables at each meal. ? Eat more whole grains. ? Avoid foods and drinks that have added sugars. Try to limit how much added sugar you have to: ? Less than 25 grams a day for women. ? Less than 36 grams a day for men. Lifestyle ? Get regular exercise. This is one of the most important things you can do for your health. Generally, it is recommended that you: ? Exercise for at least 30 minutes on most days of the week (150 minutes each week). This should be exercise that causes your heart to beat faster (aerobic exercise). ? Add strength exercises on at least 2 days each week. ? Do not use any products that contain nicotine or tobacco. These products include cigarettes, chewing tobacco, and vaping devices, such as e-cigarettes. These can damage your heart and blood vessels. If you need help quitting, ask your health care provider. Alcohol use ? Do not drink alcohol if: ? Your health care provider tells you not to drink. ? You are , may be , or are planning to become . ? If you drink alcohol: ? Limit how much you have to: ? 0?1 drink a day for women. ? 0?2 drinks a day for men. ? Know how much alcohol is in your drink. In the [place] one drink equals one 12 oz bottle of beer (355 mL), one 5 oz glass of wine (148 mL), or one 1? oz glass of hard liquor (44 mL). Medicines ? Take nfnm-ola-buzlmpf and prescription medicines only as told by your health care provider. ? Work with your health care provider to find out whether it is safe and beneficial for you to take aspirin daily. Make sure that you understand how much to take and what form to take. ? Depending on your risk factors, your health care provider may prescribe medicines to lower your risk of heart disease or to control related conditions. You may take medicine to: ? Lower cholesterol. ? Control blood pressure. ? Control diabetes. General information ? Keep your blood pressure under control, as recommended by your health care provider. For most healthy people, the upper number of their blood pressure (systolic) should be no higher than 120, and the lower number (diastolic) no higher than 80. Treatment may be needed if your blood pressure is higher than 130/80. ? Have your blood pressure checked at least every 2 years. Your health care provider may check your blood pressure more often if you have high blood pressure. ? After age 20, have your cholesterol checked every 4?6 years. If you have risk factors for heart disease, you may need to have it checked more often. Treatment may be needed if your cholesterol is high. ? Have your body mass index (BMI) checked every year. Your health care provider can calculate your BMI from your height and weight. ? Check your waist circumference. It should be: ? No more than 35 inches (89 cm) for women who are not . ? No more than 40 inches (102 cm) for men. ? Work with your health care provider to lose weight, if needed, or to maintain a healthy weight. Where to find more informatio (more content not included)... Normal [facility] OT - Workers [facility] 01-06-20 24 OT - Workers Comp [id number]#1.00TIFF [facility] OT - Workers [facility] 12-25-19 24 OT - Workers Comp [id number]#1.00TIFF [facility] Physician Referralon 024 Physician Referral [id number]#1.00TIFF [facility] Family Medicine Office/Clini c Noteon 12-14-2023 Family Medicine Office/Clinic Note Chief Complaint Establish Care-Former [facility] Staff Patient here to Establish Care History: Any previous diagnosis: Benign HTN, Depression, Hyperlipidemia History of seeing any specialist(s): yes Ortho for wrist fracture and 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 Hathaway/Ayden Any recent labs: no Smoker Status: Current (10 or more a day). Acute: Current issues/complaints: Insomnia, fatigue, migraines, and check thyroid (due to family history) Health Maintenance Adult Wellness: Patient states she had a wellness done 10/2023 and her next one is scheduled for 07/2024 Flu Vaccine: Up to date Diabetic Screening: Due Mammogram (qyr 45-54yo, q2yrs 55-75yo): Due Colonoscopy/Cologuard (45-75yo): Due DEXA (F>65yo, M>70yo): Due Hypertension. How often are you checking your blood pressure? Doesnt check BP at home What are your average readings? N/A, Not checking at home Do you have any of the following symptoms? Chest Pain? no Palpitations? no DIAZ/SOB? yes Upon exertion Headache? yes Patient states she believes she has migraines but has not been dx with it. She states this has happened several times Peripheral Edema? no Mental Status: Medication adherence- Yes, takes medication as prescribed Mediation refill needed: yes Suicidal thoughts-Not at this time LISBETH: 2 PHQ9:10 Fall Risk Score: 25 History of Present Illness Melba Zapata is a 68-year-old female who would like to talk about some acute issues and chronic issues as well. I have reviewed and discussed the HPI (staff) with the patient today. Information was verified and is correct. Additional information provided if needed. Medical History: HTN Depression. Hyperlipidemia Past Surgical History: Cataracts removed. Bilateral total left hip arthroplasty. Epidural steroid injection. Cystoscopy with stent removal. Hammertoe bunionectomy. Multiple hip injection. Wrist fracture repair. Health Maintenance: Routine labs: The last labs include fasting glucose, triglycerides HDL, LDL are from 10/19/2021 Colonoscopy/Cologuard (45-75yo): Repeat colonoscopy not due yet Mammogram (every year 45-54, ever 2 years 55-85): Ordered Breast cancer screening The patient previously had an abnormal mammogram, which necessitated an ultrasound. The ultrasound results were normal. Lung CA LDCT (55-74 year old + 30 PYH): Ordered DEXA (F>65, M>70): patient opted to postpone repeat DEXA for now. AAA (>65 +100cigs/life or Family history): _ She does not take mfxc-kww-bpzrlvv supplement Specialists: Dr. Maddox, Dr. Coleman Weight Loss Sales Consultant: N/A Dentist: N/A Psychology/psychiatry: N/A Cardiology: N/A Patient denies experiencing abnormal weight loss. No reported fevers, chills, or back pain today. Post-hip surgery status is satisfactory. Patient has undergone physical therapy for arm rehabilitation and has participated in balneotherapy. Reports of dry and itchy skin, but denies any spots. She indicates the need for knee replacement surgery. Hammertoe bunionectomy The patient's right hallux does not make contact with the ground. She underwent a bunionectomy previously. She consulted with Dr Coleman, a reconstructive surgeon based in [place], who confirmed the possibility of correction. The patient intended to undergo the corrective procedure in the spring, but due to a fall, she was nearly non-weight bearing for 2 months. Fracture of right wrist with routine healing. The patient reports having undergone laboratory tests at [facility] for pre-admission at the end of 09/2023. She experienced a fall recently, resulting in a wrist fracture. The incident occurred while attempting to enter an elevator. Two weeks post-incident, due to a shift in her bone, she underwent outpatient surgery. She has balance issues attributed to her neck condition. She also experiences stiffness in her fingers and reported pre-therapy symptoms of numbness and tingling, which are now improving. Sensation in the affected area is gradually returning. The patient is right-handed and was informed that her wrist is healing correctly. She continues her therapy at [facility]. She has an appointment with Dr Griffin on the morning of 12/15/2023. Fatigue The patient reports recent onset of fatigue and insomnia. There are occasions when she remains awake until 4:00 AM, with experiencing difficulty in initiating sleep. She has purchased Tylenol PM, but its usage is infrequent. Melatonin supplementation results in nightmares. Despite reports of snoring, she has been tested and does not suffer from sleep apnea. Thyroid She has expressed interest in undergoing thyroid testing. She has a family history of thyroid cancer. The patient occasionally experiences dysphagia, particularly when consuming chocolate, but does not consider it severe enough to warrant further discussion. Depression The patient pres (more content not included)... Normal [facility] Comment on above: Result Comment: Elec tronically Signed By: Beatrice Ingram\.br\Date and Time Signed: 12/14/23 23:26 EST\.br\Electronically Co-Signed By: Yue Reinoso\.br\Date and Time Co-Signed: 12/10/23 22:42 EST Ambulatory Visit Summaryon 0 12-10-2023 Ambulatory Visit Summary MELBA ZAPATA :1955 Visit Date:12/10/2023 Ambulatory Visit Instructions Your [...] Follow-Up Appointments 2023 1:45 PM EST Where: [facility] Friday 2:15 PM EST Where: [facility] Friday 2:00 PM EST Where: [facility] 2023 8:15 AM EST Where: [facility] Friday 2:30 PM EDT Where: [facility] Primary Care Invalid Interpretation Code Wellness examination, Not Required, Print Label By Order Location\.br\ Comprehensive Metabolic Panel, Blood, Routine collect, 12/10/23, Order for future visit, Lab Collect, Benign essential HTN [facility] Patient Educationon 12-10-19 Patient Education Immunology Fatigue [...] these instructions at home: Medicines ? Take wywb-zrw-vqterce and prescription medicines only as told by [...] the National Suicide Prevention Lifeline at or 907. This is open 24 hours a day. ? Text the Crisis Text Line at 608273. Summary ? If you have fatigue, you [...] provider. Document Revised: 08/12/2022 Document Reviewed: 08/12/2022 [employer] Patient Education ? 2022 [employer]. Mental and Behavioral Health Major Depressive Disorder, [...] ? You (more content not included)... Normal [facility] Pre-Visit Planningon 024 Pre-Visit Planning - From: Truman MANE, Yolette To: Beatrice Barnes; Sent: 12/09/2023 10:39:17 EST Subject: Pre-Visit Planning Due Date/Time: 12/09/2023 10:39:00 EST Caller Name: BENNY MELBA Fisher; Caller Number: H Miah Barron, *Based on your response below, can you please update the chronic problem list and address during this visit if appropriate?* During a pre-visit planning chart review, I noted the following documentation in the medical record indicates that this patient had a BMI of 38.03 on 10/30/2023. The National [place] of Health defines obesity as morbid if [...] feel free to contact me at extension [phone]. Thank you! SIMONA Pardo, RN, CCM, CCDS, CCDS-O From: Beatrice Ingram To: Yolette Laughlin RN; Sent: 12/09/2023 22:05:42 EST Subject: RE: Pre-Visit Planning Caller Name: BENNY MELBA A; Caller Number: H - Class 3 severe obesity BMI 38 with serious comorbidity in adult with HTN. ??? (please also include additional diagnosis to reflect current BMI) Normal [address] [facility] Pre-Visit Planning - From: Yolette Laughlin RN To: Beatrice Ingram; Sent: 12/09/2023 10:36:38 EST Subject: Pre-Visit Planning Due Date/Time: 12/09/2023 10:36:00 EST Caller Name: BENNY MELBA A; Caller Number: H Miah Barron During a pre-visit planning chart review, I [...] feel free to contact me at extension [phone]. Thank you! SIMONA Pardo, RN, CCM, CCDS, CCDS-O From: Beatrice Ingram To: Truman MANE, Yolette; Sent: 12/09/2023 22:04:13 EST Subject: RE: Pre-Visit Planning Caller Name: MELBA ZAPATA; Caller Number: H Major depressive disorder, recurrent, mild Normal [address] [facility] OT - Home Exercise Programon 12-04-2023 OT - Home Exercise Program [id number]#1.00TIFF [facility] OT - Assessmentson OT - Assessments [id number]#1.00TIF F [facility] OT - Consentson 11-14-2023 OT - Consents [id number]#1.00TIF F [facility] OT - Home Exercise Programon 11-14-2023 OT - Home Exercise Program [id number]#1.00TIF F [facility] OT - Orderson 11-12-2023 OT - Orders [id number]#1.00TIFF [facility] Consent for Treatmenton Consent for Treatment [id number]#1.00TIFF [facility] OT - Workers Compon 11-10-19 24 OT - Workers Comp [id number]#1.00TIFF [facility] Workers Comp Formson 024 Workers Comp Forms [id number]#1.00TIFF [facility] Consent for Flu Vaccineon Consent for Flu Vaccine [id number]#1.00TIFF [facility] Family Medicine Office/Clini c [...] many disease (more content not included)... Normal [facility] Comment on above: Result Comment: Elec tronically Signed By: SIENNA CONSTANTINO, Aakash Ruggiero\.kyler\Date and Time Signed: 10/31/23 12:38 EST\.br\Electronically Co-Signed By: Tiffanie Yi LPN\.br\Date and Time Co-Signed: 10/30/23 16:16 EST [place] 10-31-2023 Screens [id number]#1.00TIFF [facility] Ambulatory Visit Summaryon 1 12-31-2022 Ambulatory Visit Summary MELBA ZAPATA :1955 Visit Date:10/30/2023 Ambulatory Visit Instructions Your [...] Occupational Therapy Friday 4:00 PM EST With: Cmaeron SUGGS, Beatrice Valdez Where: [facility] Primary Care Normal [address] [place] [address]- \.br\ Medications\.br \ What How Much When [...] it yourself. Visit the VAERS website at www.vaers.[facility].g ov or call . VAERS is only for reporting reactions, and VAERS staff do not give medical advice.\.br\ 6. How can I learn more?\.br\ ? \.br\ Ask your health care provider.\.br\ ? \.br\ Call your local or state health department.\.br \ ? \.br\ Contact the Centers for Disease Control and Prevention (CDC):\.br\ ? \.br\ Call (1-121-XFD-INFO ) or\.br\ ? \.br\ Visit CDC's website [...] provider.\.br\ Document Revised: 09/18/2022 Document Reviewed: 07/22/2022 [employer]Mir[employer] Patient Education ? 2022 [employer].br\ Understanding Your Risk for Falls\.br\ Each [...] insomnia, or edema, as well as tyler [facility] Patient Educationon 10-30-20 23 Patient [...] Community-Based Fall Prevention Programs: www.cdc.gov ? National [place] on Aging: www.erich.nih.gov Contact a health care [...] provider. Document Revised: 05/23/2021 Document Reviewed: 05/23/2021 Elsevier Patient Education ? 2022 [employer] Infectious Disease Pneumococcal Polysaccharide Vaccine (PPSV23): What You Need to Know 1. Why get vaccinated? Pneumococcal polysaccharide vaccine (PPSV23) can prevent pneumococcal disease. Pneumococcal disease refers to any illness caused by pneumococcal bacteria. These bacteria can cause many types of illnesses, including pneumonia, which is an infection of the lungs. Pneumococca (more content not included)... Normal [facility] [place] LESS THAN 1 HOURon 2022 [place] LESS THAN 1 HOUR Radiology exam is complete. No Radiologist dictation. Please follow up with ordering provider. Final result Normal [facility] Office Visiton 10-02-2023 Follow-up visit [id number] Diana Zapata 1955 F Date Provider Department Center 10/02/2023 DARIO MENENDEZ CARD [facility] Family History Problem Relation Age of Onset Atrial fibrillation Mother Diabetes Mother Other Mother Transient ischemic attack Father Stroke Maternal Grandmother Family Status - Relation Status Age at Mother Father Maternal Grandmother Level of Service:23022 [place] OFFICE/OUTPATIENT NEW MODERATE MDM 45-59 MINUTES Normal [facility] CT Head or Brain w/o Contras ton [...] MD Transcribed by: PRIMO Technologist: TERRY [facility] CT Spine Cervical w/o Contra [...] REPORT Dictated: 09/10/2023 1:03 pm Merrick Torrez MD. Signed (Electronic Signature): 09/10/2023 1:03 pm Signed by: Merrick Torrez MD Transcribed by: PRIMO Technologist: [facility] Consent for Treatmenton Consent for Treatment [id number]#[id number] Normal [facility] Discharge Instructionson Discharge Instructions [id number] [facility] ED Clinical Summaryon 2022 ED Clinical Summary (Inserted Image. Margret ble to display) [place] [id number] ED Clinical Summary Person Information Name: MELBA ZAPATA [facility] Age: 68 Years : 1955 Sex: Female Language: Cameroonian PCP: Martha Hathaway CNP Marital Status: Phone: [phone] Visit Id: Visit Reason: Knee pain-swelling; Wrist [...] 09/10/2023 14:28:48 09/10/2023 14:28:48 09/10/2023 14:28:48 ADDRESS: [address] [place] [phone] PHYS DOC NOTES: MEDICAL INFORMATION: Prescriptions Given: New Medications [facility], [address] [place], [place] [id number], [phone] acetaminophen-oxycodone (acetaminophen-oxycodone 325 mg-5 mg Tab) 1 Tablets By Mouth every 6 hours as needed for pain for 3 Days. Refills: 0. Medications to Continue with No Changes Other Medications duloxetine (duloxetine 60 mg oral delayed release capsule) 1 Capsules By Mouth every day. Refills: 0. PATIENT EDUCATION INFORMATION: Instructions: Contusion; Cervical Sprain; Radial Fracture Follow up: With: Address: When: Rony Wray [address] [place], [place] [id number] [facility] (1) In 3 days 09/13/2023 Comments: Follow-up with Dr. Wray for further evaluation of your distal radius fracture. With: Address: When: Occupational Health: [facility] [phone] In 3 days 09/13/2023 With: Address: When: Martha Hathaway In 3 days 09/13/2023 Comments: Follow-up with your primary care provider in 3 to 5 days. If symptoms worsen, do not improve, or new symptoms arise please report back to emergency department for further evaluation. DIAGNOSIS: Cervical strain; Closed head injury; Contusion of left knee; Fall; Right radial fracture Normal [facility] ED Note-Physicianon 09-10-20 ED Note-Physician Basic Information Time Seen: Phil BLEDSOE, Sushil Rausch. 09/10/2023 11:49 Chief Complaint patient c/o right wrist pain, left knee pain and neck pain after tripping and falling this afternoon. denies LOC or use of blood thinners. - 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 Dockery (more content not included)... Normal [facility] Comment on above: Result Comment: Elec tronically Signed By: Phil BLEDSOE, Sushil Kennedy.br\Date and Time Signed: 09/10/23 14:46 EST\.br\Electronically Co-Signed By: Som Willis M.D..br\Date and Time Co-Signed: 09/10/23 14:51 [facility] ED Patient Education Noteon 09-10-2023 ED Patient [...] or lying down. General instructions ? Take cbqh-znc-dsffpvc and prescription medicines only as told by [...] compression, and elevation. You may be given hsxe-wra-mawfgkl medicines for pain. ? Contact a health [...] provider. Document Revised: 09/03/2022 Document Reviewed: 08/15/2022 Elsevier Patient Education ? 2022 [employer] Cervical Sprain A cervical sprain is [...] doing p (more content not included)... Normal [facility] ED Patient Summaryon 023 ED Patient Summary (Inserted Image. Margret ble to display) [address] [address] Patient Discharge Instructions Person Information Name: MELBA ZAPATA Age: 68 Years Arrival Date: 09/10/2023 11:36:20 Discharge Diagnosis: Cervical strain; Closed head injury; Contusion of left knee; Fall; Right radial fracture Primary Care Physician: Martha Hathaway CNP Provider Information Primary Provider: Som Willis M.D. Advanced Rating Specialist:None The exam and treatment you received in the Emergency Department were for an urgent problem and are not intended as complete care. It is important that you follow up with a doctor, nurse practitioner, or physician?s assistant chief train dispatcher for ongoing care. If your symptoms become worse or you do not improve as expected and you are unable to reach your usual health care provider, you should return to the Emergency Department. We are available 24 hours a day. MELBA ZAPATA has been given the following list of patient education materials, prescriptions and follow-up instructions: Follow-up Instructions: With: Address: When: Rony Wray [address] [place] [address] [facility] () In 3 days 09/13/2023 Comments: Follow-up with Dr. Wray for further evaluation of your distal radius fracture. With: Address: When: Occupational Health: [facility] [phone] In 3 days 09/13/2023 With: Address: When: [...] opioids can be used to help relieve frgbouxu-cy-jccasn pain and are often prescribed following a [...] dispose of (more content not included)... Normal [facility] ED Traumaon 09-10-2023 ED Trauma [id number]#1.00TIFF Normal [facility] Workers [employer] 023 [employer] Forms [id number]#1.00TIFF Normal [facility] XR Knee Complete 4+ Views Le fton [...] REPORT Dictated: 09/10/2023 1:47 pm Merrick Torrez MD Signed (Electronic Signature): 09/10/2023 1:47 pm Signed by: Merrick Torrez MD Transcribed by: PRIMO Technologist: LOPEZ Technical Comments Radiation Dose: Ka,r in mGy = 0 DAP = 0 Normal [facility] XR Wrist 3+ Views [...] mGy = 0 DAP = 0 Normal [facility] Family Medicine Office/Clini c Noteon [...] with voice recognition software. Occasional wrong-word or ?tejsr-u-lcow? substitutions may have occurred due to the [...] day(s), # 14 cap(s), Refills(s) 0, Pharmacy: [facility], 167, cm, 08/21/23 14:00:00 EDT, Height/Length [...] she notice (more content not included)... Normal [facility] Comment on above: Result Comment: Elec tronically Signed By: Duy BLEDSOE, Rai Ortiz\.br\Date and Time Signed: [...] these instructions at home: Medicines ? Take cozp-vch-ensgjrn and prescription medicines only as told by [...] Take good care of your mouth: ? [place] your teeth at least two times a [...] provider. Document Revised: 03/01/2022 Document Reviewed: 03/01/2022 [employer] Patient Education ? 2022 [employer]. Sinus Infection, Adult A sinus infection, also called sinusitis, is inflammation of your sinuses. Sinuses are hollow spaces in the bones around your face. Your sinuses are located: ? Around your eyes. ? In the middle of your forehead. ? Behind your nose. ? In your cheekbones. Mucus normally drains out of your sinuses. When your na (more content not included)... Normal [facility] Reference Laboratory Testing Ordered By: [employer] Domain[employer] on 11-23-2021 SARS-CoV-2 (COVID-19) RNA JUNAID+probe Ql (Resp) Not detected Invalid Interpretation Code Not Detected [facility] [employer] Comment on above: Result Comment: This nucleic acid amplification test was developed and its performance characteristics determined by [employer]. Nucleic acid amplification tests include RT-PCR and [...] detected) result in this assay. Performed at: [address] [id number] PhD Zhang Padron 06-17-2017 [place] Office Visit (MARYBETHFT) VICKIE ZAPATA ([id number]) 1955 [facility] Provider Department06/17/17 12:50 PM RUBENS SWARTZ During your visit today, we recorded the following information about you: Pulse Respiration Blood pressure Weight 83/minute 20/minute 135/79 99.8 kg Height 1.676 Evangelina Swartz MD 06/17/2017 2:02 PM [facility] SURGERY OUTPATIENT CONSULTSERVICE DATE: 06/17/2017PCP: Camryn Barbosa, [address] [facility] [id number] PROVIDER:Brea Layton requested for an opinion regarding the evaluation and treatment Saadia Zapata. My final impression and recommendations will be communicatedback to the requesting physician by way of the shared medical record or lettervia US mail.SUBJECTIVEMelba Zapata is a 62 year old female presenting alone. 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[employer].CHIEF COMPLAINT: Right arm weaknessHISTORY [...] Ratio: RIGHT ARMDERMATOMAL DISTRIBUTION:Right: C6, C7 and I2DNVNDKDJOY STATUS: AT LEAST 1 -2 MILESSTANDING UPRIGHT: [...] RIGHT ARM WEAKNESSPREVIOUS SPINAL SURGERY: NonePED RED FLAGSNoNoNoNoYesYesNoNoNo NoNoNo No-Significant Injury to SpineNo-Use of Steroids for Prolonged DurationNo-Loss of Bowel/Bladder Control, Genital/Anal NumbnessNo-Recent Use of Intravenous (IV) DrugsYES-Difficulty Keeping Balance when WalkingYES-Progressive Weakness in Arms/LegsNo-History of Any Type of CancerNo-Unable to Find Position of ComfortNo-Pain at Night that Disturbs SleepNo-Recent Elevated Temp with Unknown CauseNo-Diagnosed with OsteoporosisNo-Unintentio nal Weight Loss or Gain*PED (Patient Entered Data) osteoporosis flag will display for females 55 yearsor older and males 75 years or older.ACTIVE PROBLEM LISTCalculus of KidneyCts (Carpal Tunnel Syndrome)ItchingNicotine Dependence, UncomplicatedSecondary Osteoarthritis of Multiple SitesAna PositiveKnee Pain, BilateralOsteopeniaPathol ogic Fracture of Other Specified SiteHeight LossKidney StonesHypertensionSmokerS tress Fracture of FootPAST MEDICAL HISTORYDiagnosis Date- ANNA [...] [Contrast Dy* Hives OK for topical iodine- PenicillinsMEDICATIONS:bu PROPion SR (WELLBUTRIN SR) 150 mg 12 hr [...] for Heat Intolerance, Excessive Thirst and Menstrual CycleIrregularitiesMuscul oskeletal Positive for Back Pain and Stiff Joints [...] been reviewed with the patient and updated asappropriate.OBJECTIVE:P HYSICAL EXAMBP 135/79 Pulse 83 Resp 20 Ht 167.6 cm (5' 6ANDquot;) Wt 99.8 kg (220 lb) BMI 35.51 kg/w1UPPKGBG APPEARANCE: Well nourished, well developed, and no apparent distress.NEURO PSYCH: Patient oriented to person, place, and time. Mood pleasant. Benignaffect.CARDIOVASCUL AR: Palpable2+ radial and 2+ posterior tibialis pulses. [...] and 1+ in the left in the lowerextremities.PROPRIOC EPTION: Normal.LONG TRACT SIGNS: No clonus. No Hoffmans.STRAIGHT [...] 56 and C6-7 foraminalstenosis. No overt cord compression.ASSESSMENT/PL ANIMPRESSION:(M54.12) Radiculopathy, cervical region (primary encounterdiagnosis)(M15.3 ) Secondary osteoarthritis of multiple sites(M84.48XA) Pathologic fracture [...] and C6-7 foraminal stenosis with right arm radiculopathy,simultaneou s right rotator cuff impingementDiagnoses and treatment options [...] if she relapsed in her cigarette smoking.Melba Zapata has a surgical indication but she would like to give it somemore consideration before proceeding with surgery.1. Imaging: Cervical X-Ray2. Follow up: PRNAfter the patient left, I called Dr. Ilya Kelley'office to notify of theshoulder impingement status.SIGNATURE: Rubens Swartz MD PATIENT NAME: Melba ZapataDATE: June 17, 2017 : 12:56 PM PAGER:Rubens Swartz MD 06/17/2017 1:35 PM SignedCERVICAL DISC HERNIATION/STENOSISReferr ing Provider: CAMRYN BARBOSA [[id number]]Allergies As of Date: 06/17/2017 Noted Allergy ReactionIODINE (CONTRAST DYE) 12/19/2006 4 - Hives Comments: OK for topical iodinePENICILLINS 12/04/2006Date Reviewed: 06/17/2017Reviewed by: Rubens Swartz - Fully AssessedReason for Visit: Consult [173] [...] Shoulder impingement, right [M75.41]Order(s):XR CERVICAL OBLIQUES ONLY [[id number]] Order #: [id number] FUTURE XR CERVICAL 3VIEW/FLEX/EXT [[id number]] Order #: [id number] FUTUREPrescriptions as of 06/17/2017 Sig: BUPROPION HCL [...] Other instructions from your clinician: CERVICAL DISC HERNIATION/STENOSISDispos ition: Return if symptoms worsen or fail to improve.Follow-up and Disposition History RecordedEncounter Number: [id number] Status:Closed by RUBENS SWARTZ MD on 06/17/17 [facility] PROGRESSon 06-17-2017 PROGRESS HNO ID: [id number] thor: Rubens SwartzSerjustae: (none)Author Type: PhysicianType: Progress NotesFiled: 06/17/2017 2:02 PMNote Text:SPINE SURGERY OUTPATIENT CONSULTSERVICE DATE: 06/17/2017PCP: Camryn Barbosa, [address] [facility] [phone] PROVIDER:Brea Layton requested for an opinion regarding the evaluation and treatmentof Melba Zapata. My final impression and recommendations will becommunicated back to the requesting physician by way of the shared medicalrecord or letter via US mail.Sunita Zapata is a 62 year old female presenting alone. 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 He then referred the patient to [facility] further assessment.PAIN EVALUATION 06/17/2017 Pain Score: 8 Pain Location: Arm-Right Description: Numbness Duration Amount of Time: 4 Duration Units: Months Frequency: Continuous Intervention: Medication;RepositionPain Radiation: Right shoulder into the right hand involving all digitsAggravating Factors: reaching, pulling, lifting, usage of the right arm,doing hair and make upAlleviating Factors: nothingPain Ratio: RIGHT ARMDERMATOMAL DISTRIBUTION:Right: C6, C7 and D9MDOSMXTYSB STATUS: AT LEAST 1 -2 MILESSTANDING UPRIGHT: MOST OF THE DAYARM WEAKNESS: RIGHT, April 2017HAND CLUMSINESS: RIGHT, April 2017. DROPPING THINGS, BUTTONING A SHIRTHANDWRITING DIFFICULTY: RIGHT, SOMETIME, PRIOR TO Fauzia 2017IMBALANCE: OCCASIONALLY, April 2017FUNCTIONAL STATUS: Walk indoors, [...] RIGHT ARM WEAKNESSPREVIOUS SPINAL SURGERY: NonePED RED FLAGSNoNoNoNoYesYesNoNoNo NoNoNo No-Significant Injury to SpineNo-Use of Steroids for Prolonged DurationNo-Loss of Bowel/Bladder Control, Genital/Anal NumbnessNo-Recent Use of Intravenous (IV) DrugsYES-Difficulty Keeping Balance when WalkingYES-Progressive Weakness in Arms/LegsNo-History of Any Type of CancerNo-Unable to Find Position of ComfortNo-Pain at Night that Disturbs SleepNo-Recent Elevated Temp with Unknown CauseNo-Diagnosed with OsteoporosisNo-Unintentio nal Weight Loss or Gain*PED (Patient Entered Data) osteoporosis flag will display for females 55years or older and males 75 years or older.ACTIVE PROBLEM LISTCalculus of KidneyCts (Carpal Tunnel Syndrome)ItchingNicotine Dependence, UncomplicatedSecondary Osteoarthritis of Multiple SitesAna PositiveKnee Pain, BilateralOsteopeniaPathol ogic Fracture of Other Specified SiteHeight LossKidney StonesHypertensionSmokerS tress Fracture of FootPAST MEDICAL HISTORYDiagnosis Date- ANNA [...] education: Number of children: 3Occupational HistoryOccupation Employer [employer] History Main Topics Smoking status: Light Tobacco Smoker Packs/day: 0.00 Years: 0.00 Alcohol use: NoALLERGIESAllergen Reactions- Iodine [Contrast Dy* Hives OK for topical iodine- PenicillinsMEDICATIONS:bu PROPion SR (WELLBUTRIN SR) 150 mg 12 hr [...] for Heat Intolerance, Excessive Thirst and Menstrual CycleIrregularitiesMuscul oskeletal Positive for Back Pain and Stiff Joints [...] been reviewed with the patient and updatedas appropriate.OBJECTIVE:PHY SICAL EXAMBP 135/79 Pulse 83 Resp 20 Ht 167.6 cm (5' 6 ) Wt 99.8 kg (220 lb) BMI 35.51 kg/l9ZDYOQGC APPEARANCE: Well nourished, well developed, and no apparentdistress.NEURO PSYCH: Patient oriented to person, place, and time. Mood pleasant.Benign affect.CARDIOVASCULAR: Palpable2+ radial and 2+ posterior tibialis pulses. Noedema noted. No varicosities.SKIN: Head, neck, trunk, and extremities dry, intact and without lesions.LYMPHATICS: No palpable nodes in cervical or axillae areas. Groin examdeferred.MUSCULOSKELE GOYO VISUAL INSPECTION CERVICAL: WNL with full active [...] and 1+ in the left inthe lower extremities.PROPRIOCEPTIO N: Normal.LONG TRACT SIGNS: No clonus. No Hoffmans.STRAIGHT [...] Slight retrolisthesis C4 on 5. Canal ratio 17/.Cervical MRI scan. February 27, 2017. Right C4-5, 56 and C6-7 foraminalstenosis. No overt cord compression.ASSESSMENT/PL ANIMPRESSION:(M54.12) Radiculopathy, cervical region (primary encounterdiagnosis)(M15.3 ) Secondary osteoarthritis of multiple sites(M84.48XA) Pathologic fracture [...] if she relapsed in her cigarette smoking.Melba Zapata has a surgical indication but she would like to give itsome more consideration before proceeding with surgery.1. Imaging: Cervical X-Ray2. Follow up: PRNAfter the patient left, I called Dr. Ilya Kelley'office to notify ofthe shoulder impingement status.SIGNATURE: Rubens Swartz MD PATIENT NAME: Melba ZapataDATE: June 17, 2017 : 12:56 PM PAGER: Normal [facility] Vital Signs Date Time Vital Sign Value Performing Clinician Facility 06-04-2024 08:21-0400 Diastolic blood pressure 71 mm[Hg] Aakash Levy [facility] [place] 06-04-2024 08:21-0400 Heart rate 72 /min Aakash Levy [facility] [place] 06-04-2024 08:21-0400 Systolic blood pressure 103 mm[Hg] Aakash Levy [facility] [place] 05-27-2024 09:00-0400 Diastolic blood pressure 83 mm[Hg] Tony Edmondson [facility] 05-27-2024 09:00-0400 Heart rate 71 /min Tony Delvis [facility] 05-27-2024 09:00-0400 Mean blood pressure 102 mm[Hg] Tony Delvis [facility] 05-27-2024 09:00-0400 Respiratory rate 20 /min Tony Delvis [facility] 05-27-2024 09:00-0400 SaO2% (BldA) [Mass fraction] 97 % Tony Delvis [facility] 05-27-2024 09:00-0400 Systolic blood pressure 139 mm[Hg] Tony Delvis [facility] 05-27-2024 07:00-0400 Diastolic blood pressure 69 mm[Hg] Tony Delvis [facility] 05-27-2024 07:00-0400 Heart rate 66 /min Tony Delvis [facility] 05-27-2024 07:00-0400 Mean blood pressure 86 mm[Hg] Tony Delvis [facility] 05-27-2024 07:00-0400 Respiratory rate 13 /min Tony Delvis [facility] 05-27-2024 07:00-0400 SaO2% (BldA) [Mass fraction] 96 % Tony Delvis [facility] 05-27-2024 07:00-0400 Systolic blood pressure 120 mm[Hg] Tony Delvis [facility] 05-27-2024 06:52-0400 Diastolic blood pressure 75 mm[Hg] Tony Delvis [facility] 05-27-2024 06:52-0400 Heart rate 60 /min Tony Delvis [facility] 05-27-2024 06:52-0400 Mean blood pressure 90 mm[Hg] Tony Delvis [facility] 05-27-2024 06:52-0400 Respiratory rate 11 /min Tony Delvis [facility] 05-27-2024 06:52-0400 Systolic blood pressure 119 mm[Hg] Tony Delvis [facility] 05-27-2024 05:38-0400 SaO2% (BldA) [Mass fraction] 98 % Tony Delvis [facility] 05-26-2024 18:30-0400 Hourly Rounding Tony Delvis [facility] 05-26-2024 18:30-0400 Promise to Return Tony Delvis [facility] 05-26-2024 17:40-0400 Hourly Rounding Tony Delvis [facility] 05-26-2024 17:40-0400 Promise to Return Tony Delvis [facility] 05-26-2024 16:23-0400 Hourly Rounding Tony Delvis [facility] 05-26-2024 16:23-0400 Promise to Return Tony Edlvis [facility] 05-26-2024 12:44-0400 Body temperature 98.96 [degF] Tony Delvis [facility] 05-26-2024 12:44-0400 Heart rate 74 /min Tony Delvis [facility] 05-26-2024 12:44-0400 Respiratory rate 18 /min Tony Delvis [facility] 05-26-2024 10:41-0400 Heart rate 73 /min Aakash Mourany [facility] 05-26-2024 10:41-0400 SaO2% (BldA) [Mass fraction] 92 % Aakash Mourany [facility] 05-26-2024 10:40-0400 Diastolic blood pressure 67 mm[Hg] Aakash Mourany [facility] 05-26-2024 10:40-0400 Mean blood pressure 79 mm[Hg] Aakash Mourany [facility] 05-26-2024 10:40-0400 Systolic blood pressure 102 mm[Hg] Aakash Mourany [facility] 05-26-2024 09:51-0400 Heart rate 69 /min Aakash Mourany [facility] 05-26-2024 09:51-0400 SaO2% (BldA) [Mass fraction] 93 % Aakash Mourany [facility] 05-26-2024 09:49-0400 Diastolic blood pressure 70 mm[Hg] Aakash Mourany [facility] 05-26-2024 09:49-0400 Mean blood pressure 82 mm[Hg] Aakash Mourany [facility] 05-26-2024 09:49-0400 Systolic blood pressure 106 mm[Hg] Aakash Mourany [facility] 05-26-2024 09:49-0400 Respiratory rate 18 /min Aakash Mourany [facility] 05-26-2024 09:40-0400 Blood Pressure Location Aakash Mourany [facility] 05-26-2024 09:40-0400 Body temperature 98.06 [degF] Aakash Mourany [facility] 05-26-2024 09:40-0400 Diastolic blood pressure 71 mm[Hg] Aakash Mourany [facility] 05-26-2024 09:40-0400 Heart rate 53 /min Aakash Mourany [facility] 05-26-2024 09:40-0400 Mean blood pressure 94 mm[Hg] Aakash Mourany [facility] 05-26-2024 09:40-0400 Respiratory rate 20 /min Aakash Mourany [facility] 05-26-2024 09:40-0400 SaO2% (BldA) [Mass fraction] 93 % Aakash Mourany [facility] 05-26-2024 09:40-0400 Systolic blood pressure 140 mm[Hg] Aakash Mourany [facility] 05-26-2024 09:25-0400 Blood Pressure Location Aakash Mourany [facility] 05-26-2024 09:25-0400 Mean blood pressure 83 mm[Hg] Aakash Mourany [facility] 05-26-2024 09:25-0400 Respiratory rate 11 /min Aakash Mourany [facility] 05-26-2024 09:10-0400 Blood Pressure Location Aakash Mourany [facility] 05-26-2024 09:10-0400 Mean blood pressure 78 mm[Hg] Aakash Mourany [facility] 05-26-2024 09:10-0400 Respiratory rate 18 /min Aakash Mourany [facility] 05-26-2024 08:53-0400 Body temperature 97.88 [degF] Aakash Mourany [facility] 05-26-2024 08:50-0400 FIO2 100 1 Aakash Mourany [facility] 05-26-2024 08:50-0400 Respiratory rate 1 /min Aakash Mourany [facility] 05-26-2024 08:45-0400 FIO2 100 1 Aakash Mourany [facility] 05-26-2024 08:45-0400 Respiratory rate 21 /min Aakash Mourany [facility] 05-26-2024 08:40-0400 FIO2 100 1 Aakash Mourany [facility] 05-26-2024 06:13-0400 Mean blood pressure 101 mm[Hg] Aakash Mourany [facility] 05-26-2024 06:11-0400 Body temperature 97.7 [degF] Aakash Mourany [facility] 05-26-2024 06:11-0400 Heart rate 72 /min Aakash Mourany [facility] 04-27-2024 14:25-0400 Diastolic blood pressure 82 mm[Hg] Aakash Mourany [facility] [place] 04-27-2024 14:25-0400 Heart rate 92 /min Aakash Mourany [facility] 04-27-2024 14:25-0400 Systolic blood pressure 128 mm[Hg] Aakash Mourany [facility] 04-14-2024 13:49-0400 Blood Pressure Location Beatrice Barnes [facility] 04-14-2024 13:49-0400 Body temperature 98.06 [degF] Beatrice Barnes [facility] 04-14-2024 13:49-0400 Diastolic blood pressure 82 mm[Hg] Beatrice Barnes [facility] 04-14-2024 13:49-0400 Heart rate 81 /min Beatrice Barnes [facility] 04-14-2024 13:49-0400 Respiratory rate 18 /min Beatrice Barnes [facility] 04-14-2024 13:49-0400 SaO2% (BldA) [Mass fraction] 97 % Beatrice Barnes [facility] 04-14-2024 13:49-0400 Systolic blood pressure 138 mm[Hg] Beatrice Barnes [facility] 03-19-2024 14:55-0400 Blood Pressure Location Beatrice Barnes [facility] 03-19-2024 14:55-0400 Body temperature 97.7 [degF] Beatrice Barnes [facility] 03-19-2024 14:55-0400 Diastolic blood pressure 98 mm[Hg] Beatrice Barnes [facility] 03-19-2024 14:55-0400 Heart rate 79 /min Beatrice Barnes [facility] 03-19-2024 14:55-0400 Respiratory rate 18 /min Beatrice Barnes [facility] 03-19-2024 14:55-0400 SaO2% (BldA) [Mass fraction] 97 % Beatrice Barnes [facility] 03-19-2024 14:55-0400 Systolic blood pressure 146 mm[Hg] Beatrice Barnes [facility] 12-10-2023 16:27-0500 Blood Pressure Location Beatrice Barnes [facility] 12-10-2023 16:27-0500 Body temperature 97.7 [degF] Beatrice Barnes [facility] 12-10-2023 16:27-0500 Diastolic blood pressure 80 mm[Hg] Beatrice Barnes [facility] 12-10-2023 16:27-0500 Heart rate 72 /min Beatrice Barnes [facility] 12-10-2023 16:27-0500 Respiratory rate 18 /min Beatrice Barnes [facility] 12-10-2023 16:27-0500 SaO2% (BldA) [Mass fraction] 94 % Beatrice Barnes [facility] 12-10-2023 16:27-0500 Systolic blood pressure 136 mm[Hg] Beatrice Barnes [facility] 10-30-2023 14:19-0500 Blood Pressure Location Miguel Wilbert [facility] 10-30-2023 14:19-0500 Body temperature 98.42 [degF] Miguel Gudimella [facility] 10-30-2023 14:19-0500 Diastolic blood pressure 86 mm[Hg] Miguel Gudimella [facility] 10-30-2023 14:19-0500 Heart rate 74 /min Miguel Gudimella [facility] 10-30-2023 14:19-0500 SaO2% (BldA) [Mass fraction] 95 % Miguel Gudimella [facility] 10-30-2023 14:19-0500 Systolic blood pressure 130 mm[Hg] Miguel Gudimella [facility] 08-21-2023 13:55-0400 Blood Pressure Location Rai Powellpsey [facility] 08-21-2023 13:55-0400 Body temperature 97.7 [degF] Rai Duy [facility] 08-21-2023 13:55-0400 Diastolic blood pressure 78 mm[Hg] Rai Powellpsey [facility] 08-21-2023 13:55-0400 Heart rate 48 /min Rai Gordillo [facility] 08-21-2023 13:55-0400 SaO2% (BldA) [Mass fraction] 95 % Rai Gordillo [facility] 08-21-2023 13:55-0400 Systolic blood pressure 124 mm[Hg] Rai Duy [facility] 10-21-2022 13:40-0500 Blood Pressure Location Miguel Gudimella [facility] 10-21-2022 13:40-0500 Body temperature 97.52 [degF] Miguel Gudimella [facility] 10-21-2022 13:40-0500 Diastolic blood pressure 78 mm[Hg] Miguel Gudimella [facility] 10-21-2022 13:40-0500 Heart rate 74 /min Miguel Gudimella [facility] 10-21-2022 13:40-0500 Respiratory rate 18 /min Miguel Gudimella [facility] 10-21-2022 13:40-0500 SaO2% (BldA) [Mass fraction] 97 % Miguel Gudimella [facility] 10-21-2022 13:40-0500 Systolic blood pressure 128 mm[Hg] Miguel Gudimella [facility] 04-18-2022 15:36-0400 Blood Pressure Location Marthajojo Arellanoell [facility] 04-18-2022 15:36-0400 Body temperature 98.24 [degF] Martha Hathaway [facility] 04-18-2022 15:36-0400 Diastolic blood pressure 80 mm[Hg] Martha Hathaway [facility] 04-18-2022 15:36-0400 Heart rate 81 /min Martha Hathaway [facility] 04-18-2022 15:36-0400 SaO2% (BldA) [Mass fraction] 97 % Martha Hathaway [facility] 04-18-2022 15:36-0400 Systolic blood pressure 136 mm[Hg] Martha Hathaway [facility] Encounters Encounter Date Encounter Type Care Provider Facility Start: 08-19-2024 ambulatory Lucinda Jin [facility] Start: 07-15-2024 ambulatory Beatrice Barnes Facil ity:[facility] Start: 07-13-2024 ambulatory Miguel Wilbert Facilit y:[facility] Start: 07-12-2024 ambulatory Antonio Rosei ty:[facility] [place] Start: 06-29-2024 End: 06-29-2024 ambulatory [facility] Start: 06-07-2024 End: 06-07-2024 ambulatory JOHANA [facility] Start: 06-04-2024 End: 06-04-2024 ambulatory Aakash Levy Facility:[facility] Start: 06-04-2024 End: 06-04-2024 Patient encounter procedure Aakash Levy [facility] Start: 05-29-2024 Evaluation and manag ement of inpatient BYRON [facility] Start: 05-29-2024 Evaluation and manag ement of inpatient NUPUR SADIE [facility] Start: 05-28-2024 Evaluation and manag ement of inpatient ESME [facility] Start: 05-27-2024 Evaluation and manag ement of inpatient OPAL COLEMAN [facility] Start: 05-27-2024 End: 05-29-2024 Evaluation and management of inpatient UNKNOWN UNKNOWN [facility] Start: 05-26-2024 End: 05-27-2024 Emergency department patient visit Tony Edmondson [facility] Start: 05-26-2024 End: 05-26-2024 Admission to same day surgery center Aakash Levy [facility] Start: 05-26-2024 End: 05-26-2024 ambulatory Aakash Levy Facility:[facility] Start: 05-14-2024 End: 05-14-2024 ambulatory [facility] Start: 05-14-2024 End: 05-14-2024 Encounter for preprocedural cardiovascular examination [facility] Start: 04-27-2024 End: 04-27-2024 ambulatory Beatrice Barnes Facility:[facility] Start: 04-27-2024 End: 04-27-2024 Patient encounter procedure Aakash Levy [facility] [place] Start: 04-21-2024 End: 04-21-2024 ambulatory Beatrice Barnes Facility:[facility] Start: 04-21-2024 End: 04-21-2024 Patient encounter procedure Beatrice Barnes [facility] Start: 04-15-2024 ambulatory Beatrice Barnes Facilit y:[facility] Start: 04-14-2024 End: 04-14-2024 ambulatory Beatrice Barnes Facility:[facility] Start: 04-14-2024 End: 04-14-2024 Patient encounter procedure Beatrice Barnes [facility] Start: 04-07-2024 ambulatory Beatrice Barnes Facilit y:AUDRE[facility] Start: 04-02-2024 End: 04-02-2024 ambulatory Beatrice Barnes Facility:[facility] Start: 04-02-2024 End: 04-02-2024 Patient encounter procedure Beatrice Barnes [facility] Start: 03-19-2024 End: 03-19-2024 ambulatory Beatrice Barnes Facility:[facility] Start: 03-19-2024 End: 03-19-2024 Patient encounter procedure Beatrice Barnes [facility] Start: 01-21-2024 ambulatory Beatrice Barnes Facil ity:[facility] Start: 12-11-2023 End: 12-23-2023 Pre-admission assessment Beatrice Barnes [facility] Start: 12-10-2023 End: 12-10-2023 ambulatory Beatrice Barnes Facility:[facility] Start: 12-10-2023 End: 12-10-2023 Patient encounter procedure Beatrice Barnes [facility] Start: 12-10-2023 End: 12-10-2023 Well adult monitoring check done Beatrice Barnes [facility] Start: 11-10-2023 End: 05-02-2024 ambulatory Gilbert Desouza Facility:[facility] Start: 10-30-2023 End: 10-30-2023 ambulatory Miguel Gudimella Facility:[facility] Start: 10-30-2023 End: 10-30-2023 Encounter for general adult medical examination with abnormal findings Miguel Gudimella [facility] Start: 10-30-2023 End: 10-30-2023 Patient encounter procedure Miguel Gudimella [facility] Start: 10-22-2023 ambulatory Miguel Atkins Facilit y:[facility] Start: 10-03-2023 End: 10-03-2023 ambulatory [facility] Start: 10-02-2023 End: 10-02-2023 [facility] Start: 09-30-2023 ambulatory [facility] Start: 09-10-2023 End: 09-10-2023 ambulatory Ricki VAZQUEZ Facility:[facility] Start: 09-10-2023 End: 09-10-2023 Emergency department patient visit Som Willis Facility:[facility] Start: 08-21-2023 End: 08-21-2023 ambulatory Rai Gordillo Facility:[facility] Start: 08-21-2023 End: 08-21-2023 Patient encounter procedure Rai Gordillo [facility] Start: 10-21-2022 End: 10-21-2022 Patient encounter procedure Miguel Atkins [facility] Start: 05-08-2022 End: 05-09-[address] DENIA JOHNS Facility: Start: 04-18-2022 End: 04-18-2022 Patient encounter procedure Martha Hathaway [facility] Start: 11-23-2021 End: 2022 Patient encounter procedure Martha Hathaway [facility] Start: 06-17-2017 End: 06-17-2017 Ambulatory RUBENS SWARTZ [facility] Procedures Date Procedure Procedure Detail Performing Clinician Start: 05-26-2024 Cardiac pacemakerwalter (physical object) Aakash Levy Start: 05-26-2024 Laparoscopic cholecystostomy Aakash Levy Comment on above: With robotic assist Start: 09-03-2023 Open reduction of fracture Beatrice [...] Hathaway Comment on above: 10% relief Start: 04-13-2018 Left hip steroid injection 9 Aakash Levy Comment on above: 10% relief Start: 03-16-2018 Transforaminal Epidu ral Steriod Injection Lt. L4, L5 10 Aakash Levy Comment on above: 90% relief and still lasting Start: 03-16-2018 Transforaminal Epidu ral Steriod Injection Lt. L4, L5 9 Martha Hathaway Comment on above: 90% relief and still lasting Start: 11-05-2017 Injection of hip usi ng fluoroscopic guidance Marthabeth Hathaway Comment on above: left hip injection 6 0% relief and still working Start: 05-04-2017 transforimanal Epidu ral steriod injection 11 Martha Arellanoell Comment on above: L3-L4 TFESI 40 % rel ief Start: 05-04-2017 transforimanal Epidu ral steriod injection 12 Aakash Levy Comment on above: L3-L4 TFESI 40 % rel ief Start: 10-30-2016 cysto lt retrograde lt ureteroscopy holmium laser fragment removal of stone lt j stent with string. Martha Hathaway Start: 10-09-2016 Excision of anterior tongue lesion with repair Martha Hathaway Appendectomy Martha Hathaway Colonoscopy 12 Martha valdez Comment on above: Dr. Ruvalcaba May 2009 Colonoscopy 13 Aakash Levy Comment on above: Dr. Ruvalcaba May 2009 Cystopexy Martha Hathaway Comment on above: 1997 Excision of cyst of ovary Aquiles Hathaway Lithotripsy Martha Hathaway Other bilateral liga tion and division of fallopian tubes Martha Hathaway Immunizations Immunization Date Immunization Notes Care Provider Fa maría 04-14-2024 tetanus toxoid, redu ni diphtheria toxoid, and acellular pertussis vaccine, adsorbed; Translations: [Boostrix (Tdap)] Beatrice Barnes [facility] Comment on above: Result Comment: Lot: [id number] Expiration date: 06/11/2026 Unable to add lot number 10-30-2023 pneumococcal polysaccharide vaccine, [address] [facility] 08-12-2023 influenza virus vaccine, unspecified formulation Rai Duy [facility] 10-02-2021 pneumococcal conjuga te vaccine, 13 valent Martha Hathaway [facility] 10-02-2021 influenza, high dose seasonal, preservative-free Martha Hathaway [facility] 02-02-2021 COVID-19, mRNA, LNP- S, PF, 30 mcg/0.3 mL dose; Translations: [Pfizer-BioNTech COVID-19 Vaccine] Martha Hathaway [facility] Comment on above: Reason for Medicatio n: Prophylaxis 01-12-2021 COVID-19, mRNA, LNP- S, PF, 30 mcg/0.3 mL dose; Translations: [Pfizer-BioNTech COVID-19 Vaccine] Martha Hathaway [facility] Comment on above: Reason for Medicatio n: Prophylaxis 08-10-2020 influenza virus vaccine, unspecified formulation Martha Hathaway [facility] 09-03-2018 influenza virus vaccine, unspecified formulation Martha Hathaway [facility] NEGATED: Highlighted row has not occurred!10-21-2022 influenza virus vaccine, unspecified formulation Miguel Gudimella [facility] Payers Date Payer Category Payer Unknown [id number] 2023 Worker's Compensation [id number] 2023 Worker's Compensation [id number] 1959 Medicare [id number] 1959 Unknown [id number] 1955 Unknown [id number] 2.16.84 [id number] 1955 Unknown [id number] 2.16.8 40.1.048282.3.579.2.174 1955 Unknown [id number] 2.16.8 40.1.433394.3.579.2.727 1955 Unknown [id number] 2.16.8 40.1.545214.3.579.2.727 1955 Unknown [id number] 2.16.8 40.1.214981.3.579.2.727 1955 Unknown [id number] 2.16.8 40.1.415331.3.579.2.727 1955 Unknown [id number] 2.16.8 40.1.242402.3.579.2.727 1955 Unknown [id number] 2.16.8 40.1.088981.3.579.2.727 1955 Unknown [id number] 2.16.8 40.1.952309.3.579.2.727 1955 Unknown [id number] 2.16.8 40.1.673928.3.579.2.727 1955 Unknown [id number] 2.16.8 40.1.023643.3.579.2.727 1955 Unknown [id number] 2.16.8 40.1.219033.3.579.2.727 1955 Unknown [id number] 2.16.8 40.1.148993.3.579.2.727 1955 Unknown [id number] 2.16.8 40.1.675284.3.579.2.727 1955 Unknown [id number] 2.16.8 40.1.669395.3.579.2.727 1955 Unknown [id number] 2.16.8 40.1.028274.3.579.2.727 1955 Unknown [id number] 2.16.8 40.1.469815.3.579.2.727 1955 Unknown [id number] 2.16.8 40.1.037451.3.579.2.727 1955 Unknown [id number] 2.16.8 40.1.047996.3.579.2.727 1955 Unknown [id number] 2.16.8 40.1.798617.3.579.2.727 1955 Unknown [id number] 2.16.8 40.1.244527.3.579.2.727 1955 Unknown [id number] 2.16.8 40.1.092470.3.579.2.727 1955 Unknown [id number] 2.16.8 40.1.875258.3.579.2.727 Social History Date Type Detail Facility Start: 10-02-2021 End: 12-10-2023 Tobacco smoking status Heavy tobacco smoker (finding) [facility] Comment on above: smokes 1/2 PPD smokes .5 PPD, start ed at age age 22 Tobacco smoking status Never [facility] Comment on above: smokes 1/2 PPD smokes .5 PPD, start ed at age age 22 Patient states she s mokes around 2 cigarettes a day Sex Assigned At Female [facility] Start: 03-19-2024 End: 06-04-2024 Tobacco smoking status Light tobacco smoker (finding) [facility] Comment on above: smokes .5 PPD, start ed at age age 22 smokes 1/2 PPD Patient states she s mokes around 2 cigarettes a day Medical Equipment Procedure Code Equipment Code Equipment Origin al Text Equipment Identifier Dates FDA Start: 03-22-2019 FDA Start: 09-28-2019 [id number] FDA Start: 10-12-2019 CYSTOSCOPY RETRO GRADE [...] 09-28-2019 Functional Status Date Assessment Result Facility 05-26-2024 Functional Status N/A [facility] 05-26-2024 Functional Status No [facility] 04-14-2024 Functional Status N/A [facility] 03-19-2024 Functional Status N/A [facility] 12-10-2023 Functional Status N/A [facility] 10-30-2023 Functional Status N/A [facility] 08-21-2023 Functional Status N/A [facility] 10-21-2022 Functional Status N/A [facility] [place] 04-18-2022 Functional Status N/A [facility] Clinical Notes 04-18-2022 to 06-29-2024 Note Date & Type Note Facility 06-29-2024 Note [place] Electrophysiology Consult Note [place] [facility] - [facility] Reason for visit: s/p PPM HPI: Melba Zapata is a 69 y.o. year old with past medical history of hypertension, gallstones who had previously endorsed palpitations had undergone a event monitor placement. This did reveal presence of sinus rhythm with blocked PACs which manifested as group beating. Given this the patient was asked to report to ED where there was a concern of complete heart block and she underwent a dual-chamber pacemaker by Dr. Mckay. Post implant the EKG does reveal the presence of sinus rhythm with PAC which resulted in tracked ventricular pacing confirming the presence of blocked PACs rather than third-degree heart block as attached below Post implant the patient does report that she feels better. Today when she came for a device check at [facility], she was noted to have sinus rhythm with [place] conduction with a prolonged [place] intervl. When the patient was asked to ambulate it was clear that she went into 2-1 block and was noted to have symptoms. PMH: Past Medical History: Diagnosis Date Heart block Hypertension PSH: Past Surgical History: Procedure Laterality Date CHOLECYSTECTOMY FOOT SURGERY REPLACEMENT TOTAL HIP ONCOLOGIC SH: Social Determinants of Health Tobacco Use: High Risk (05/27/2024) Patient History Smoking Tobacco Use: Every Day Smokeless Tobacco Use: Never Passive Exposure: Not on file Alcohol Use: Not on file Financial Resource Strain: Low Risk (05/27/2024) Overall Financial Resource Strain (CARDIA) Difficulty of Paying Living Expenses: Not hard at all Food Insecurity: No Food Insecurity (05/27/2024) Hunger Vital Sign Worried About Running Out of Food in the Last Year: Never true Ran Out of Food in the Last Year: Not on file Transportation Needs: No Transportation Needs (05/27/2024) Transportation Lack of Transportation (Medical): No Lack of Transportation (Non-Medical): Not on file Physical Activity: Not on file Stress: Not on file Social Connections: Not on file Intimate Partner Violence: Unknown (05/27/2024) Humiliation, Afraid, Rape, and Kick questionnaire Fear of Current or Ex-Partner: No Emotionally Abused: Not on file Physically Abused: Not on file Sexually Abused: Not on file Depression: Not on file Housing Stability: Low Risk (05/27/2024) Housing Stability Vital Sign Unable to Pay for Housing in the Last Year: Not on file Number of Places Lived in the Last Year: Not on file Unstable Housing in the Last Year: No Utilities: Not At Risk (05/27/2024) [facility] Utilities Threatened with loss of utilities: No Allergies: Allergies Allergen Reactions Iodinated Contrast Media Hives OK for topical iodine Latex Hives Penicillins Unknown Tolerated cefazolin Weight: No weight available Visit Vitals Smoking Status Every Day Meds: Current Outpatient Medications on File Prior to Visit Medication Sig Dispense Refill albuterol 90 mcg/actuation inhaler INHALE 2 PUFFS EVERY 6 HOURS cholecalciferol (Vitamin D-3) 1,250 mcg (50,000 unit) capsule Take 1,250 mcg by mouth 1 (one) time per week. Takes on friday DULoxetine (Cymbalta) [address] capsule Take 60 mg by mouth in the morning. Do not crush or chew. HYDROcodone-acetaminophen (Dassel) 5-325 mg tablet Take 1 tablet by mouth every 6 (six) hours if needed for severe pain (8-10 pain score). lisinopriL-hydrochlorothiazide 20-25 mg tablet Take 1 tablet by mouth once daily as directed. nicotine (Nicoderm CQ) 21 mg/[address] 1 patch on the skin 1 (one) time each day at the same time. Wellbutrin SR 150 mg 12 hr tablet Take 150 mg by mouth in the morning and at bedtime. No current facility-administered medications on file prior to visit. ROS: Cardio Basic Cardiovascular Symptoms: no lightheadedness, no leg edema, no syncope, no orthopnea, no PND, no claudication, Constitutional Constitutional: no fever, no night sweats, no significant weight gain, no significant weight loss, no exercise intolerance Eyes Eyes: no dry eyes, no irritation, no vision change ENMT Ears: no difficulty hearing, no ear pain Nose: no frequent nosebleeds, Mouth/Throat: no sore throat, no bleeding gums, no snoring, no dry mouth, no mouth ulcers, no oral abnormalities, no teeth problems Respiratory Respiratory: no cough, no wheezing, no coughing up blood, no sleep apnea Musculoskeletal Musculoskeletal: no muscle aches, no muscle weakness, joint pain+, no back pain, no swelling in the extremities Integumentary Skin no rash, no ulcer, no varicosities, no discoloration, no pruritus Neurologic Neurologic: no loss of consciousness, no weakness, no numbness, no seizures, no dizziness, no headaches Psychiatric Psych: no depression, feeling safe in relationship, no alcohol abuse, Hematologic/Lymphatic Hematologic/Lymphatic no swollen glands, no bruising Physical Exam: Cons (more content not included)... [facility] 06-07-2024 Note [facility] Cardiology Clinic Note Chief Complaint: Patient here for wound check s/p PPM placement 05/28/[address] Mckay. HPI: Melba Zapata is a 69 y.o. female Past Medical History She has a past medical history of Heart block and Hypertension. Surgical History She has a past surgical history that includes Replacement total hip oncologic; Foot surgery; and Cholecystectomy. Social History She reports that she has been smoking cigarettes. She has been smoking an average of .25 packs per day. She has never used smokeless tobacco. She reports that she does not currently use alcohol. No history on file for drug use. Family History Family History Problem Relation Name Age of Onset Atrial fibrillation Mother Diabetes Mother Other (end stage renal disease) Mother Transient ischemic attack Father Stroke Maternal Grandmother Allergies Iodinated contrast media, Latex, and Penicillins Medications Current Outpatient Medications: albuterol 90 mcg/actuation inhaler, INHALE 2 PUFFS EVERY 6 HOURS, Disp: , Rfl: cholecalciferol (Vitamin D-3) 1,250 mcg (50,000 unit) capsule, Take 1,250 mcg by mouth 1 (one) time per week. Takes on friday, Disp: , Rfl: DULoxetine (Cymbalta) [address] capsule, Take 60 mg by mouth in the morning. Do not crush or chew., Disp: , Rfl: HYDROcodone-acetaminophen (Dassel) 5-325 mg tablet, Take 1 tablet by mouth every 6 (six) hours if needed for severe pain (8-10 pain score)., Disp: , Rfl: lisinopriL-hydrochlorothiazide 20-25 mg tablet, Take 1 tablet by mouth once daily as directed., Disp: , Rfl: nicotine (Nicoderm CQ) 21 mg/24 hr patch, Place 1 patch on the skin 1 (one) time each day at the same time., Disp: , Rfl: Wellbutrin SR 150 mg 12 hr tablet, Take 150 mg by mouth in the morning and at bedtime., Disp: , Rfl: Last Recorded Vitals Physical Examination: Pacemaker site is clean and dry; no evidence of inflammation. No bleeding or bruising. No swelling. Assessment: Wound check post pacemaker placement; the wound appears to be within normal limits. No concerning signs. I provided the patient with instructions regarding any concerning symptoms or signs that she should report. She is to follow-up as scheduled. Johana Kelley MD, MPH, FACC, [facility], [facility] Interventional Cardiology Pager Email: [email or web address] 05-29-2024 Note Occupational Therapy Occupational Therapy Evaluation Patient Name: Melba Zapata : 1955 Today's Date: 05/29/2024 Time In: 10:50 Time Out: 11:13 Intervention Time Breakdown: Low complexity Total Billed Minutes: 23 minutes General Subjective: I am ready to go home--I know you were coming to talk to me about the pacemaker OT Diagnosis: Decrease ADL 2/2 cardiac blockage resulting in pacemaker placement Family/Caregiver Present: No Patient Active Problem List Diagnosis ANNA positive Calculus of kidney CTS (carpal tunnel syndrome) Height loss Hypertension Itching Knee pain, bilateral Nicotine dependence, uncomplicated Osteopenia Pathologic fracture of other specified site Secondary osteoarthritis of multiple sites Smoker Stress fracture of foot Pre-operative cardiovascular examination Abrasion, right lower leg, initial encounter Benign essential HTN Cervical spine degeneration BMI 40.0-44.9, adult (CMS/HCC) Depression Emphysema of lung (CMS/HCC) Fatigue FHx: thyroid cancer Fracture of radius Fracture of right wrist with routine healing Gall stones Herniated cervical disc Flank pain Hip pain, left Hydronephrosis Hyperglycemia Mild episode of recurrent major depressive disorder (CMS/HCC) Mixed hyperlipidemia Neck pain on right side Worsening headaches Need for tetanus booster Nocturia OA (osteoarthritis) of hip Patient had no falls in past year Personal history of tobacco use Sinus congestion Urge incontinence Urinary urgency Vitamin D deficiency Mobitz type I Wenckebach atrioventricular block Complete heart block (CMS/HCC) S/P cholecystectomy Past Medical History: Diagnosis Date Heart block Hypertension Past Surgical History: Procedure Laterality Date CHOLECYSTECTOMY FOOT SURGERY REPLACEMENT TOTAL HIP ONCOLOGIC Precautions Precautions Post-Surgical Precautions: Brochure on guidelines/ precautions was given to pt today following verbal instruction/ discussion of precautions by therapist General Assessment General Assessment Hand Dominance: Right Home Living Home Living Type of Home: Apartment (second floor--no elevator) Lives With: Alone (has 3 boys who live by along with her sister who are available to assist) Home Living Comments: 10 steep steps to enter her 2nd level apartment-- Rail on L side acsending Bathroom Shower/Tub: Tub/shower unit Bathroom Toilet: Standard Bathroom Equipment: None Prior Level of Function Prior Function Level of [place]: Independent with ADLs and functional transfers, Independent with homemaking with ambulation 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 Pt anticipates RTW in 2 weeks Outcome Assessments AM-PAC 6 Clicks Putting on and taking off regular lower body clothing?: A Little (Min Assist/Contact Guard/Supervision) Bathing(Including washing,rinsing,drying)?: A Little (Min Assist/Contact Guard/Supervision) Toileting, which includes using the toilet,bedpan,or urinal?: None (Independent) Putting on and taking off regular upper body clothing?: A Little (Min Assist/Contact Guard/Supervision) Taking care of personal grooming such as brushing teeth?: None (Independent) Eating meals?: None (Independent) Total Score OT AMPA: 21 Assessment/Plan OT Assessment Prognosis: Good Strengths: Ability to acquire knowledge, Capable of completing ADLs semi/independent, Premorbid level of function, Support of extended family/friends Barriers to Discharge: Housing layout Pt is a 69 yr old female --s/p pacemaker placement on 05-28-24. OT session focused on pt education on guideline/ activities limitation following pacemaker placement. All the information that was verbally instructed was given to her in written form. Pt demo good understanding of all information given to her. Pt is scheduled be discharge today with follow up appointment with cardiology on 06/07/24 OT Education/Comments: Pt was educated on guideline to follow upon returning home today --that specifies time lines when she can resum activities such as lifting with L UE; driving; resumption of chores; and AROM of L SH guidelines. Pt's main concern was navigating the 10 steps to enter her apt since rail is on L side ascending. Pt was advised to side step--holding rail with R hand and have son/family member with her the first few times. Pt agreeable Plan Level of assist: 1 assist Treatment Interventions: Patient/family training OT Plan: No skilled OT O (more content not included)... [facility] 05-29-2024 Note 1215 Patient has discharge order in place. No order for PT placed at this time. Waiting to see OT. No wound care discovered at this time. Sent message to [facility] to confirm if patient should wait to see OT or if they are good to discharge without seeing OT, awaiting response. Barriers: -OT recs [facility] 05-29-2024 Note Cardiology Progress Note Subjective Subjective: Melba Zapata is a 69 y.o. female who was admitted for finding of complete heart block on event monitor. She received a pacemaker on 05/28/2024. Patient seen and examined at bedside. She is doing well. Mild tenderness to pacemaker insertion site. Denies c/o CP, dyspnea, orthopnea, PND, LE edema, dizziness/LH, palpitations, syncope. Objective Objective: Patient Vitals for the past 24 hrs: BP Temp Temp src Pulse Resp SpO2 Weight 05/29/24 0752 118/85 36.4 ???C (97.5 ???F) Temporal 72 12 95 % -- 05/29/24 0500 -- -- -- -- -- -- 105 kg (232 lb) 05/29/24 0410 111/62 36.8 ???C (98.2 ???F) Temporal 76 15 93 % -- 05/29/24 0000 114/62 36.6 ???C (97.9 ???F) Temporal 81 13 94 % -- 05/28/24 2000 104/59 36.6 ???C (97.9 ???F) Temporal 95 20 95 % -- 05/28/24 1358 131/67 -- -- 69 16 97 % -- 05/28/24 1301 -- -- -- -- -- 100 % -- 05/28/24 1259 143/75 -- -- 66 15 100 % -- 05/28/24 1100 -- -- -- 63 11 97 % -- 05/28/24 1000 -- -- -- 57 14 95 % -- 05/28/24 0900 -- -- -- 60 14 93 % -- Physical Examination: GENERAL: AOx3, in no acute distress. HEAD: Atraumatic, normocephalic. NECK: No JVD present. CARDIAC: RRR. No murmur, rubs, or gallops. RESPIRATORY: CTAB, no increased effort of breathing. ABDOMEN: Soft, nontender, nondistended. EXTREMITIES: No lower extremity edema, peripheral pulses are 2+ bilaterally. Relevant Lab Results Encounter Date: 05/27/24 ECG 12 lead Result Value Ventricular Rate 64 Atrial Rate 64 [place] Interval 348 QRS DURATION 100 QT Interval 426 QTC CALCULATION(BAZETT) 439 P [place] 63 R-[place] 40 T Wave [place] 54 Impression Sinus rhythm with 1st degree A-V block Cannot rule out Inferior infarct , age undetermined Abnormal ECG When compared with ECG of 27-MAY-2024 12:38, (unconfirmed) Minimal criteria for Inferior infarct is now Present Confirmed by Miguel A SANCHEZ, L.S. (2) on 05/28/2024 12:17:41 PM Lab Results Component Value Date TROPONINI 0.00 05/27/2024 Encounter Date: 05/27/24 ECG 12 lead Result Value Ventricular Rate 76 Atrial Rate 76 [place] Interval 208 QRS DURATION 186 QT Interval 484 QTC CALCULATION(BAZETT) 544 P [place] 54 R-[place] -47 T Wave [place] 102 Impression Atrial-sensed ventricular-paced rhythm Abnormal ECG When compared with ECG of 28-MAY-2024 07:14, Electronic ventricular pacemaker has replaced Sinus rhythm Transthoracic echo (TTE) limited Result Date: 05/27/2024 1 1 [facility] Heart Station [address] [place] [address] [phone] (fax) Echocardiogram-[facility] Name: MELBA ZAPATA Study Date: 05/27/2024 03:03 PM B/P: 153 mmHg/81 mmHg HR: Date of : 1955 Location: [facility] Height: 66 in. Age: 69 year(s) Patient Room: 3184 Weight: 226 lb. Gender: Female Patient Status: InPt BSA: 2.11 m2 Indication: Heart Block Examination: Limited Echo/Limited Doppler, Color flow imaging Image Quality: Fair Patient Consent: Procedure explained to patient Conclusions Left Ventricle: The left ventricle is normal size. Global left ventricular systolic function is normal. The EF is 55 % visually. Left ventricular wall thickness is normal. No regional wall motion abnormality. RightVentricle: The right ventricle appears normal in size. Right ventricular systolic function appears normal. Doppler studies suggest normal right sided pressures. Left Atrium: The left atrium appears enlarged. Measurements Left Ventricle Label Value Normal Value LVEF visual 55 % LVDd, 2D 4.59 cm (3.9cm - 5.3cm) LVDs, 2D 3.53 cm (2.1cm - 4cm) IVSd, 2D 0.92 cm (0.6cm - 1.1cm) LVPWd, 2D 0.88 cm (0.6cm - 0.9cm) LV Mass, 2D ASE 137.23 g LV Mass Index, 2D ASE 65 g/m?? (44g/m?? - 88.4g/m??) RWT, MM 0.38 (0 - 0.42) LVSVI, 2D 21.3 ml/m2 Tricuspid Valve Label Value Normal Value RA Pressure 3 mmHg RVSP 27 mmHg TR Vmax 2.44 m/s Aorta Label Value Normal Value AoRoot, 2D 3.4 cm (1.4cm - 3.8cm) Valvular Assessment LVOT 0.7 - 1.1 m/sec Aortic Valve 1.0 - 1.7 m/sec Mitral Valve 0.6 - 1.3 m/sec Tricuspid Valve 0.3 - 0.7 m/sec Pulmonic Valve 0.6 - 0.9 m/sec Regurgitation Trivial Findings Left Ventricle: The left ventricle is normal size. Global left ventricular systolic function is normal. The EF is 55 % visually. Left ventricular wall thickness is normal. No regional wall motion abnormality. Right Ventricle: The right ventricle appears normal in size. Right ventricular systolic function appears normal. Doppler studies suggest normal right sided pressures. Left Atrium: The left atrium appears enlarged. Right Atrium: The right atrium appears normal in size. Mitral Valve: Mitral valve appears normal. Aortic Valve: The aortic valve is normal. Tricuspid Valve: Normal tricuspid valve. Trivial tricuspid regurgitation. Pulmonic Valve: Pulmonary valve appears normal. Aorta: The aortic root exhibits normal size. Great Vessels: IVC: The in (more content not included)... [facility] 05-28-2024 Note Indications for perm anent pacemaker implantation: The patient is a 69-year-old woman who is developed complete heart block. Because of this she will Undergo permanent cardiac pacemaker implantation. Procedure: After written informed consent was obtained she was brought to the pacemaker laboratory in the fasting state. A contrast injection for venography of the upper extremity was performed to delineate the course and patency of the left subclavian. The left subclavicular fossa was then prepped and draped in the usual manner and a 1% Xylocaine solution infiltrated for local anesthesia. Utilizing percutaneous technique the left subclavian was cannulated and under fluoroscopic guidance guidewires advanced to the level of the inferior vena cava to ensure neurovascular placement. Following initial sharp incision the mid meticulous blunt dissection was employed to create a subfascial pocket. Via 2 breakaway introducer sheaths Biotronik active-fixation leads were fluoroscopically guided into positions in the right ventricular septum and right atrial appendage. The active-fixation coils of each were deployed and the leadswere sutured into place with an 0 silk suture. They were connected to a Biotronik dual-chamber pacing system. It was sutured into place with an 0 silk suture. The off field telemetry adequate sensing and pacing levels were determined. The right atrial lead showed a pacing threshold of 0.9 V at 0.4 ms pulse width with a P wave amplitude of 1.8 mV and impedance of 469 ohms. The right ventricular lead showed a pacing threshold of 0.7 V at 0.4 ms pulse width with an R wave amplitude of 8 mV and impedance of 684 ohms. The pocket was irrigated with an antibiotic solution. The fascial layer was then closed with a continuous 2-0 Vicryl suture. The subdermal area with interrupted 3-0 Biosyn sutures placed utilizing a buried knot technique. The skin surface was closed with Dermabond glue and the wound was dressed with a Telfa pad and Tegaderm dressing. Sponge and needle counts were correct at the end of the case. Prior to the procedure the patient had received antibiotic prophylaxis. Conscious sedation was maintained throughout the case with intravenous midazolam and fentanyl. She was returned to the holding area in stable hemodynamic condition. Impressions: Dual-chamber pacemaker insertion Conscious sedation Fluoroscopy Contrast injection for venography of the upper extremity Nupur Mckay M.D. [facility] Project [employer] Analystslice cutting machine operator helper and Pediatrics Director: Cardiac Electrophysiology Program [facility] 05-28-2024 Note ------ Attestation signed by Dianne Benson MD at 05/28/2024 4:39 PM I personally saw and examined the patient on the same date of service as resident/fellow Dr David. I discussed the findings and therapeutic plan with the resident/fellow Dr David. I agree with the documentation, except for any edits/updates below. Teaching Physician's Revisions: None The findings of patient monitor strips were discussed with Dr. Mckay and he thinks she had complete heart block. Therefore we will proceed with permanent pacemaker implantation today. Hopefully home tomorrow Dianne Benson MD, [facility] ------ Cardiology Progress Note Subjective Subjective: Melba Zapata is a 69 y.o. female who was admitted for finding of complete heart block on event monitor. Today she remains in 1st degree AV block asymptomatic this AM although had not been out of bed yet. No acute complaints. Objective Objective: Patient Vitals for the past 24 hrs: BP Temp Temp src Pulse Resp SpO2 Weight 05/28/24 1301 -- -- -- -- -- 100 % -- 05/28/24 1259 143/75 -- -- 66 15 100 % -- 05/28/24 1100 -- -- -- 63 11 97 % -- 05/28/24 1000 -- -- -- 57 14 95 % -- 05/28/24 0900 -- -- -- 60 14 93 % -- 05/28/24 0800 137/77 -- -- 65 11 94 % -- 05/28/24 0700 -- 36.5 ???C (97.7 ???F) Temporal 59 (!) 9 95 % -- 05/28/24 0600 -- -- -- 58 13 94 % -- 05/28/24 0500 -- -- -- 60 12 93 % -- 05/28/24 0430 -- -- -- -- -- -- 106 kg (234 lb) 05/28/24 0400 135/76 -- -- 63 14 92 % -- 05/28/24 0014 150/81 -- -- 71 17 97 % -- 05/27/24 2000 143/74 36.7 ???C (98.1 ???F) Temporal 69 22 95 % -- 05/27/24 1600 128/82 36.3 ???C (97.3 ???F) Temporal 69 17 93 % -- 05/27/24 1553 153/71 -- -- 58 20 93 % -- 05/27/24 1538 153/81 -- -- -- -- -- -- Physical Examination: GENERAL: AOx3, in no acute distress. HEAD: Atraumatic, normocephalic. NECK: No JVD present. CARDIAC: RRR. No murmur, rubs, or gallops. RESPIRATORY: CTAB, no increased effort of breathing. ABDOMEN: Soft, nontender, nondistended. EXTREMITIES: No lower extremity edema, peripheral pulses are 2+ bilaterally. Relevant Lab Results Encounter Date: 05/27/24 ECG 12 lead Result Value Ventricular Rate 64 Atrial Rate 64 [place] Interval 348 QRS DURATION 100 QT Interval 426 QTC CALCULATION(BAZETT) 439 P [place] 63 R-[place] 40 T Wave [place] 54 Impression Sinus rhythm with 1st degree A-V block Cannot rule out Inferior infarct , age undetermined Abnormal ECG When compared with ECG of 27-MAY-2024 12:38, (unconfirmed) Minimal criteria for Inferior infarct is now Present Confirmed by Miguel A SANCHEZ, L.S. (2) on 05/28/2024 12:17:41 PM Lab Results Component Value Date TROPONINI 0.00 05/27/2024 Transthoracic echo (TTE) limited Result Date: 05/27/2024 1 1 [facility] Heart Station [address] [place] [address] [phone] (fax) Echocardiogram-[facility] Name: MELBA ZAPATA Study Date: 05/27/2024 03:03 PM B/P: 153 mmHg/81 mmHg HR: Date of : 1955 Location: [facility] Height: 66 in. Age: 69 year(s) Patient Room: 3184 Weight: 226 lb. Gender: Female Patient Status: InPt BSA: 2.11 m2 Indication: Heart Block Examination: Limited Echo/Limited Doppler, Color flow imaging Image Quality: Fair Patient Consent: Procedure explained to patient Conclusions Left Ventricle: The left ventricle is normal size. Global left ventricular systolic function is normal. The EF is 55 % visually. Left ventricular wall thickness is normal. No regional wall motion abnormality. RightVentricle: The right ventricle appears normal in size. Right ventricular systolic function appears normal. Doppler studies suggest normal right sided pressures. Left Atrium: The left atrium appears enlarged. Measurements Left Ventricle Label Value Normal Value LVEF visual 55 % LVDd, 2D 4.59 cm (3.9cm - 5.3cm) LVDs, 2D 3.53 cm (2.1cm - 4cm) IVSd, 2D 0.92 cm (0.6cm - 1.1cm) LVPWd, 2D 0.88 cm (0.6cm - 0.9cm) LV Mass, 2D ASE 137.23 g LV Mass Index, 2D ASE 65 g/m?? (44g/m?? - 88.4g/m??) RWT, MM 0.38 (0 - 0.42) LVSVI, 2D 21.3 ml/m2 Tricuspid Valve Label Value Normal Value RA Pressure 3 mmHg RVSP 27 mmHg TR Vmax 2.44 m/s Aorta Label Value Normal Value AoRoot, 2D 3.4 cm (1.4cm - 3.8cm) Valvular Assessment LVOT 0.7 - 1.1 m/sec Aortic Valve 1.0 - 1.7 m/sec Mitral Valve 0.6 - 1.3 m/sec Tricuspid Valve 0.3 - 0.7 m/sec Pulmonic Valve 0.6 - 0.9 m/sec Regurgitation Trivial Findings Left Ventricle: The left ventricle is normal size. Global left ventricular systolic function is normal. The EF is 55 % visually. Left ventricular wall thickness is normal. No regional wall motion abnormality. Right Ventricle: The right ventricle appears normal in size. Right ventricular systolic function appears normal. Doppler studies sug (more content not included)... [facility] 05-28-2024 Note Hospital Medicine Daily Progress Note - 05/28/2024 12:57 PM; Room: [address] [place] [address] Admission: 05/27/2024 11:02 AM; Length of stay: 1 days THE HOSPITALIST TEAM PREFERS TO USE [employer] CHAT FOR COMMUNICATION 7AM-7PM. IF I DO NOT RESPOND WITHIN 15 MINUTES, PLEASE PAGE ME/CALL THROUGH THE PAINTER AND DECORATOR. FROM 7PM-7AM, PLEASE PAGE [phone](COVR) Code Status: Full Code Barriers to Discharge: ? Pacemaker placement Expected Discharge Date: 1 - 2 days Discharge Destination: home Overview Patient is seen for evaluation and management of bradycardia. Subjective Doing well today No complaints Physical Exam Visit Vitals BP 137/77 Pulse 63 Temp 36.5 ???C (97.7 ???F) (Temporal) Resp 11 No intake or output data in the 24 hours ending 05/28/24 1257 Physical Exam Constitutional: Appearance: Normal appearance. HENT: Head: Normocephalic. Mouth/Throat: Mouth: Mucous membranes are moist. Eyes: Extraocular Movements: Extraocular movements intact. Pupils: Pupils are equal, round, and reactive to light. Cardiovascular: Rate and Rhythm: Normal rate and regular rhythm. Pulmonary: Effort: Pulmonary effort is normal. Abdominal: General: There is no distension. Tenderness: There is no guarding. Comments: Incisions C/D/I, steristrips in place Skin: General: Skin is warm. Neurological: General: No focal deficit present. Mental Status: She is alert and oriented to person, place, and time. Psychiatric: Mood and Affect: Mood normal. Estimated body mass index is 37.77 kg/m??? as calculated from the following: Height as of this encounter: 1.676 m (5' 6 ). Weight as of this encounter: 106 kg (234 lb). Active Inpatient Problems Principal Problem: Complete heart block (CMS/HCC) Active Problems: Smoker Benign essential HTN S/P cholecystectomy Assessment and Plan Complete heart block, currently appears to be in normal sinus rhythm - cards consulted - The patient is here because of bradycardia and concern about complete heart block. Earlier this month the patient was evaluated by cardiology for clearance for cholecystectomy and noted to have Mobitz 1 on her EKG. She was provided with the event monitor which reported to me be having a complete heart block. She had cholecystectomy yesterday and reportedly she went into complete heart block during the surgery requiring atropine. Also it was reported on the monitor that she went to second-degree 2-1 AV block with heart rate dropping to the 30s. Her EKG from 05/14/2024 showed Mobitz 1, her rhythm on the monitor now shows sinus rhythm with significant first-degree AV block, I reviewed the available strips from event monitor and in my opinion they represent atrial tachycardia with variable A-V conduction. I do not have recordings from her monitor in [facility] or during the surgery. - Continue to monitor rhythm. I think we should obtain the rhythm strips from [facility] and review to confirm that she had second-degree AV block with significant bradycardia as reported. Essential hypertension Continue hydrochlorothiazide, lisinopril Gallstones s/p cholecystectomy 05/22/2024 Tylenol for mild pain, [place] for severe pain Current smoker Nicotine patch Obese class 2/severe obesity - BMI 37 VTE Prophylaxis: On hold for possible PM Scheduled Meds buPROPion SR, 150 mg, oral, BID ceFAZolin in 0.9% sod chloride, 2 g, intravenous, Once diphenhydrAMINE, 50 mg, intravenous, Once DULoxetine, 60 mg, oral, Daily gentamicin (Garamycin) 80 mg in sodium chloride irrigation solution 0.9 % 500 mL IRRIGATION, , irrigation, Once hydroCHLOROthiazide, 25 mg, oral, Daily lisinopril, 20 mg, oral, Daily methylPREDNISolone sod suc (PF), 125 mg, intravenous, Once nicotine, 1 patch, transdermal, q24h Pertinent Investigations Hematology: Results from last 7 days Lab Units 05/28/24 0341 05/27/24 1255 WBC AUTO 10*3/uL 9.28 11.71* HEMOGLOBIN g/dL 13.7 13.9 HEMATOCRIT % 43.2 42.5 MCV fL 97.1 94.7 PLATELETS AUTO 10*3/uL 231 246 Chemistry: Results from last 7 days Lab Units 05/28/24 0341 05/27/24 1255 SODIUM mmol/L 137 139 POTASSIUM mmol/L 3.6 3.7 CHLORIDE mmol/L 107 106 CO2 mmol/L 23 30 BUN mg/dL 21 21 CREATININE mg/dL 0.83 0.90 GLUCOSE mg/dL 104* 94 CALCIUM mg/dL 8.5* 8.8 Results from last 7 days Lab Units 05/27/24 1255 AST U/L 20 ALT U/L 22 ALK PHOS U/L 74 BILIRUBIN TOTAL mg/dL 0.6 Historical Values: (Includes values prior to this admission) Lab Results Component Value Date TSH 0.43 05/27/2024 No results found for: UIEGZZOD20 , IRON , TIBC , C3 , C4 , ANNA , CANCA , ASO , PSA , CEA , CA125 , CA199 , AFP , CA153 Imaging ECG 12 lead Sinus rhythm with 1st degree A-V block Cannot rule out Inferior infarct , age undetermined Abnormal ECG When compared with ECG of 27-MAY-2024 12:38, (unconfirmed) Minimal criteria for Inferior infarct is now (more content not included)... [facility] 05-27-2024 Note Case was discussed w ith the LISA on 05/27/2024. I agree with the history, physical, assessment, and plan of care. I discussed the findings and therapeutic plan. I agree with the documentation, except for any updates below. Carlos Villarreal MD [facility] 05-27-2024 Note 05/27/24 1426 Admission Assessment Questions Verify insurance with patient Yes Do you understand medical disease or what brought you into the hospital? Yes Who is your current PCP? Beatrice Barnes NP Can I schedule a follow up appointment for you at the time of discharge? No (patient stated she will make appointment) Do you understand why you are taking your current medications? Yes Are you taking your medications as prescribed? Yes Did patient provide teach back? No Pharmacy Bedside Delivery Status Interested Does the patient have a telephonic nurse case manager assigned to them through their insurance? No Living Arrangement (Current/Prior to Hospitalization) Private residence (live alone, 10 steps it get in, one story after that) Does the patient have history of HHC or SNF? Yes [facility] Assistive Device Not applicable Patient's goal for discharge home Was patient reminded that goal for discharge is 11am? Yes Does the patient have transportation at discharge? Yes Type of Residence Private residence Is PT/OT appropriate? No (pending clinical course may be appropriate) Is PT/OT ordered? No Is SW consult appropriate? No Is SW consult ordered? No Do you understand the benefits of MyChart? Yes Were you able to send link and activate MyChart? Yes [facility] 05-27-2024 Note Hospital Medicine History and Physical 05/27/2024 2:09 PM THE HOSPITALIST TEAM PREFERS TO USE [employer] CH[employer] FOR COMMUNICATION 7AM-7PM. IF I DO NOT RESPOND WITHIN 15 MINUTES, PLEASE PAGE ME/CALL THROUGH THE PAINTER AND DECORATOR. FROM 7PM-7AM, PLEASE PAGE [phone](COVR) Chief Complaint No chief complaint on file. History of Present Illness Melba Zapata is an 69 y.o. female who came from [facility] with concerns for complete heart block. Patient reports this all started when she had broken her wrist, she had EKG done at that time which showed an abnormality leading her to have an echocardiogram done With our cardiology team in [place]. During her appointment to go over her echo results which were normal, her EKG showed that she was in a heart block, so she was prescribed a Holter monitor. Yesterday she presented to [facility] for a planned cholecystectomy 2/2 gallstones. During the procedure it was reported that they had to give her atropine due to low heart rates. Her physician there then received a call with results of her Holter monitor saying that there were signs of complete heart block and requested transfer to [facility] for evaluation by our electrophysiology service. Patient reports she has had some shortness of breath with exertion, no chest pain. No nausea or vomiting. She reports sometimes having dizziness with the shortness of breath. She denies any heart failure history, she is a current smoker. She reports she has some discomfort around the laparoscopic a sites from her surgery, however no abdominal pain. Review of System and Physical Exam Temp: [36.4 ???C (97.5 ???F)] 36.4 ???C (97.5 ???F) Heart Rate: [72] 72 Resp: [13] 13 BP: (153)/(81) 153/81 Physical Exam Vitals reviewed. Constitutional: General: She is awake. She is not in acute distress. Appearance: Normal appearance. She is not ill-appearing. Cardiovascular: Rate and Rhythm: Normal rate and regular rhythm. Pulses: Radial pulses are 2+ on the right side and 2+ on the left side. Heart sounds: Normal heart sounds. Pulmonary: Effort: Pulmonary effort is normal. No tachypnea, accessory muscle usage or respiratory distress. Breath sounds: Normal breath sounds. Abdominal: General: Bowel sounds are normal. There is no distension. Palpations: Abdomen is soft. Tenderness: There is no abdominal tenderness. Comments: Laparoscopic sites from cholecystectomy Musculoskeletal: Right lower leg: No edema. Left lower leg: No edema. Skin: General: Skin is warm and dry. Neurological: Mental Status: She is alert and oriented to person, place, and time. Mental status is at baseline. Psychiatric: Attention and Perception: Attention normal. Mood and Affect: Mood normal. Speech: Speech normal. Behavior: Behavior is cooperative. Review of Systems Constitutional: Negative for activity change, appetite change and fever. Eyes: Negative. Respiratory: Positive for shortness of breath (with exertion). Cardiovascular: Negative. Gastrointestinal: Pain at laparoscopic sites Endocrine: Negative. Genitourinary: Negative. Musculoskeletal: Negative. Skin: Negative. Allergic/Immunologic: Negative. Neurological: Positive for dizziness (with SOB). Hematological: Negative. Psychiatric/Behavioral: Negative. Problem List Patient Active Problem List Diagnosis Date Noted Pre-operative cardiovascular examination 05/14/2024 Mobitz type I Wenckebach atrioventricular block 05/14/2024 Complete heart block ([facility]/HCC) 05/27/2024 Abrasion, right lower leg, initial encounter 05/14/2024 Benign essential HTN 05/14/2024 Cervical spine degeneration 05/14/2024 BMI 40.0-44.9, adult (CMS/HCC) 05/14/2024 Depression 05/14/2024 Emphysema of lung (CMS/HCC) 05/14/2024 Fatigue 05/14/2024 FHx: thyroid cancer 05/14/2024 Fracture of right wrist with routine healing 05/14/2024 Gall stones 05/14/2024 Herniated cervical disc 05/14/2024 Flank pain 05/14/2024 Hip pain, left 05/14/2024 Hydronephrosis 05/14/2024 Hyperglycemia 05/14/2024 Mild episode of recurrent major depressive disorder (CMS/HCC) 05/14/2024 Mixed hyperlipidemia 05/14/2024 Neck pain on right side 05/14/2024 Worsening headaches 05/14/2024 Need for tetanus booster 05/14/2024 Nocturia 05/14/2024 OA (osteoarthritis) of hip 05/14/2024 Patient had no falls in past year 05/14/2024 Personal history of tobacco use 05/14/2024 Sinus congestion 05/14/2024 Urge incontinence 05/14/2024 Urinary urgency 05/14/2024 Vitamin D deficiency 05/14/2024 Hypertension 10/02/2023 Smoker 10/02/2023 Fracture of radius 09/10/2023 ANNA positive 02/11/2014 CTS (carpal tunnel syndrome) 02/11/2014 Height loss 02/11/2014 Itching 02/11/2014 Knee pain, bilateral 02/11/2014 Nicotine dependence, uncomplicated 02/11/2014 Osteopenia 02/11/2014 Pathologic fracture of other specified site 02/11/2014 Secondary osteoarthritis of multiple sites 02/11/2014 (more content not included)... [facility] 05-27-2024 Note Progress Note-Physic rodrigo Patient: MELBA ZAPATA Age: 69 years Sex: Female : 1955 Associated Diagnoses: None Author: Scout Campbell Jr, DO Postoperative Information Postoperative disposition: Postoperative disposition: To PACU. Optimetrix number: Optimetrix number [id number]. Anesthetic utilized: General. Health Status Allergies: Allergic Reactions (Selected) Severe Contrast Dye- Hives and swelling. Moderate Adhesives- Redness. Severity Not Documented Penicillins- Hives and passed out. Physical Examination Vital Signs 05/26/2024 14:45 EDT Heart Rate Monitored 68 bpm Respiratory Rate Monitored 15 br/min Systolic Blood Pressure 161 mmHg HI Diastolic Blood Pressure 98 mmHg HI Mean Arterial Pressure, Cuff 119 mmHg Hourly Rounding Yes Promise to Return Yes SpO2 95 % 05/26/2024 13:45 EDT Heart Rate Monitored 75 bpm Respiratory Rate Monitored 17 br/min Systolic Blood Pressure 146 mmHg HI Diastolic Blood Pressure 78 mmHg Mean Arterial Pressure, Cuff 101 mmHg Hourly Rounding Yes Promise to Return Yes SpO2 95 % 05/26/2024 12:44 EDT Temperature Oral 37.2 DegC Peripheral Pulse Rate 74 bpm Respiratory Rate 18 br/min Systolic Blood Pressure 137 mmHg Diastolic Blood Pressure 101 mmHg HI SpO2 95 % 05/26/2024 10:41 EDT Heart Rate Monitored 73 bpm SpO2 92 % 05/26/2024 10:40 EDT Systolic Blood Pressure 102 mmHg Diastolic Blood Pressure 67 mmHg Mean Arterial Pressure, Monitered 79 mmHg 05/26/2024 9:51 EDT Heart Rate Monitored 69 bpm SpO2 93 % 05/26/2024 9:49 EDT Systolic Blood Pressure 106 mmHg Diastolic Blood Pressure 70 mmHg Mean Arterial Pressure, Monitered 82 mmHg 05/26/2024 9:49 EDT Respiratory Rate 18 br/min 05/26/2024 9:40 EDT Temperature Temporal Artery 36.7 DegC Heart Rate Monitored 53 bpm LOW Respiratory Rate Monitored 20 br/min Systolic Blood Pressure 140 mmHg HI Diastolic Blood Pressure 71 mmHg Blood Pressure Location Left arm Mean Arterial Pressure, Cuff 94 mmHg SpO2 93 % Pain Assessment: Controlled. General: Awake, Alert, Appropriate. Respiratory: Adequate air exchange. Cardiovascular: Stable, Normal peripheral perfusion. Neurological: Normal sensory function, Normal motor function. Assessment Anesthetic outcome No anesthetic complications noted. Adequate pain relief. able to void without difficulty, able to ambulate with assist, tolerating PO intake, no N/V. Review / Management Condition: Stable. Plan Transfer/Discharge: Transfer/Discharge Discharge when meets criteria ( To home ). [facility] Comment on above: Result Comment: Elec tronically Signed By: Scout Campbell Jr, DO\.br\Date and Time Signed: 05/27/24 01:09 EDT 05-26-2024 Note Progress Note-Physic rodrigo Patient: MELBA ZAPATA Age: 69 years Sex: Female : 1955 Associated Diagnoses: None Author: Scout Campbell Jr, DO Preoperative Information Anesthesia Preop Info: Time patient last ate or drank 05/26/2024 00:00:00. Anesthesia history: Patient history: None. Family history+: None. Informed consent: Signed by patient. Re-evaluation prior to induction: Initial evaluation reviewed: No significant change. Review of Systems Eye: Negative except as documented in history of present illness. Ear/Nose/Mouth/Throat: Negative except as documented in history of present illness. Respiratory: Negative except as documented in history of present illness. Cardiovascular: Negative except as documented in history of present illness. Musculoskeletal: Negative except as documented in history of present illness. Neurologic: Negative except as documented in history of present illness. Health Status Allergies: Allergic Reactions (Selected) Severe Contrast Dye- Hives and swelling. Moderate Adhesives- Redness. Severity Not Documented Penicillins- Hives and passed out. Problem list: All Problems Vitamin D deficiency / SNOMED CT 12574619 / Confirmed Urinary urgency / SNOMED CT 003498537 / Confirmed Urge incontinence / SNOMED CT 726613888 / Confirmed Smoker / SNOMED CT 465268589 / Confirmed Class 3 severe obesity with serious comorbidity in adult / SNOMED CT 0255022952 / Confirmed Added per Anali Barnes query response, per outpatient CDI policy. Need for tetanus booster / SNOMED CT 1037382008 / Confirmed Major depressive disorder, recurrent, mild / SNOMED CT 310642045 / Confirmed Added per Anali Barnes query response, per outpatient CDI policy. Emphysema of lung / SNOMED CT 532595288 / Confirmed Wellness examination / SNOMED CT 342450666 / Confirmed Screening for breast cancer / SNOMED CT 536337802 / Confirmed Osteopenia / SNOMED CT 680050637 / Confirmed OA (osteoarthritis) of hip / SNOMED CT 536798534 / Confirmed Nocturia / SNOMED CT 405828237 / Confirmed Hyperlipidemia / SNOMED CT 032752232 / Confirmed Kidney stones / SNOMED CT [id number] / Confirmed Hyperglycemia / SNOMED CT 913203782 / Confirmed Hydronephrosis / SNOMED CT 50869811 / Confirmed Hip pain, left / SNOMED CT 58440793 / Confirmed Worsening headaches / SNOMED CT 22215164 / Confirmed Gall stones / SNOMED CT 096421634 / Confirmed Radius fracture / SNOMED CT 92193247 / Confirmed R distal radius fx Fracture of right wrist with routine healing / SNOMED CT 7817095934 / Confirmed Flank pain / SNOMED CT 616277312 / Confirmed Personal history of tobacco use / SNOMED CT 6899894693 / Confirmed Fatigue / SNOMED CT 733482331 / Confirmed FHx: thyroid cancer / SNOMED CT 9112513893 / Confirmed Herniated cervical disc / SNOMED CT 5059821146 / Confirmed Patient had no falls in past year / SNOMED CT 8271465012 / Confirmed Cervical spine degeneration / SNOMED CT 8831346332 / Confirmed BMI 40.0-44.9, adult / SNOMED CT 1145036628 / Confirmed Benign essential HTN / SNOMED CT 0411365 / Confirmed Abrasion, right lower leg, initial encounter / SNOMED CT 0273394481 / Confirmed Resolved: Tobacco abuse / SNOMED CT 736853173 Resolved: Scleroderma / SNOMED CT 058930984 inactive Resolved: Smoker / SNOMED CT 393190174 Added secondary to documentation in Social History. Resolved: Sicca syndrome / SNOMED CT 034684704 Resolved: Sinus congestion / SNOMED CT 631235255 Resolved: BMI 37.0-37.9, adult / SNOMED CT 803583894 Resolved: At risk for falls / SNOMED CT 367955651 Problem added when Risk for Falls Careplan was initiated. Resolved due to patient discharge. Resolved: Asthma / SNOMED CT 862363609 Resolved: Anxiety / SNOMED CT 08347711 Canceled: Urinary urgency / SNOMED CT 397250816 Canceled: Tobacco use disorder / SNOMED CT 547341180 Canceled: Smoker / IMO 900699 Added secondary to documentation in Social History. Canceled: Obesity due to excess calories / SNOMED CT 7501368130 Canceled: Encounter for wellness examination in adult / SNOMED CT 647263242 Canceled: Osteopenia / SNOMED CT 049413344 Canceled: Current smoker on some days / SNOMED CT 4943612724 Canceled: Obesity, Class II, BMI 35-39.9 / SNOMED CT 8853661489 Canceled: Class 1 obesity with body mass index (BMI) of 30.0 to 30.9 in adult / SNOMED CT 9536416975 Canceled: Class 1 obesity with body mass index (BMI) of 34.0 to 34.9 in adult / SNOMED CT 3226007523 Canceled: Obesity due to excess calories / SNOMED CT 8463146267 Canceled: Neck pain on right side / SNOMED CT 312369907 Canceled: Nasal congestion / SNOMED CT 315673494 Canceled: Frequent urination / SNOMED CT 603752092 Canceled: Hydronephrosis due to obstruction of ureter / SNOMED CT 6832118919 Canceled: HTN (hypertension) / SNOMED CT [id number] Canceled: Hammertoe / SNOMED CT 120207027 Canceled: Gene (more content not included)... [facility] Comment on above: Result Comment: Elec tronically Signed By: Scout Campbell Jr, DO\.br\Date and Time Signed: 05/26/24 17:40 EDT 05-26-2024 Evaluation + Plan note Extrac maribel from: Title:ANES Post-operative Note---General Author: Scout Campbell Jr, DO Date:05/26/24 Plan Transfer/Discharge: Transfer/Discharge Discharge when meets criteria ( To home ). Extracted from: Title:ANES Pre-operative Note 2022 Author:Scout Campbell Jr, DO Date:05/26/24 Plan [place] [employer] (ASA) physical status classification: Class III. Anesthetic Preoperative Plan: Anesthesia General. Future Appointments Appointment Date:06/04/2024 08:20:00 AM Scheduled Provider:Aakash Levy MD Location:[facility] Appointment Type: Post Op 15 Appointment Date:07/12/2024 02:00:00 PM Scheduled Provider:Antonio FUENTES MD Location:[facility] Appointment Type:URO New Patient Appointment Date:07/13/2024 02:30:00 PM Scheduled Provider: Location:[facility] Appointment Type: Medicare Wellness Subsequent Appointment Date:07/15/2024 02:00:00 PM Scheduled Provider:Beatrice Ingram Location:[facility] Appointment Type: Open Future Scheduled Tests Laboratory* Basic Metabolic Panel 04/14/24 Radiology* MA Mamm Screen w/CAD if perf and 3D Jai 12/10/23 [facility] 07-24-2024 Evaluation + Plan noteExtracted from: Title:ED Note Author:Malcolm Greenwood PA-C te:05/26/24 1. Complete heart block (I44 .2: Atrioventricular block, complete) 2. Dizziness, (R42: Dizziness and giddiness)Lightheaded Orders: Basic Metabolic Panel CBC w/ Auto Diff ED Cardiac Monitoring eGFR Extra SST Tube PT & PTT Saline Lock Insert Troponin 0 Hr. Troponin 1 Hr. XR Chest Single View Future Appointments Appointment Date:06/04/2024 08:20:00 AM Scheduled Provider:Aakash Levy MD Location:[facility] Appointment Type: Post Op 15 Appointment Date:07/12/2024 02:00:00 PM Scheduled Provider:Antonio FUENTES MD Location:[facility] Appointment Type:URO New Patient Appointment Date:07/13/2024 02:30:00 PM Scheduled Provider: Location:[facility] Appointment Type: Medicare Wellness Subsequent Appointment Date:07/15/2024 02:00:00 PM Scheduled Provider:Beatrice Ingram Location:[facility] Appointment Type: Open Future Scheduled Tests Laboratory* Basic Metabolic Panel 04/14/24 Radiology* MA Mamm Screen w/CAD if perf and 3D Jai 12/10/23 [facility] 07-24-2024 Hospital Discharge instructions Patient Education 05/26/2024 09:42:12 Post Op Patient Instructions - FT (Custom) (CUSTOM) 05/26/2024 08:55:31 Minimally Invasive Cholecystectomy, Care After Minimally Invasive Cholecystectomy, Care After The following information offers guidance on how to care for yourself after your procedure. Your health care provider may also give you more specific instructions. If you have problems or questions, contact your health care provider. What can I expect after the procedure? After the procedure, it is common to have: Pain at your incision sites. You will be given medicines to control this pain. Mild nausea or vomiting. Bloating and possible shoulder pain from the gas that was used during the procedure. Follow these instructions at home: Medicines Take ghix-hwo-yevvwpk and prescription medicines only as told by your health care provider. If you were prescribed an antibiotic medicine, take it as told by your health care provider. Do notstop using the antibiotic even if you start to feel better. Ask your health care provider if the medicine prescribed to you: ?Requires you to avoid driving or using machinery. ?Can cause constipation. You may need to take these actions to prevent or treat constipation: ?Drink enough fluid to keep your urine pale yellow. ?Take becs-thu-jvvaxxg or prescription medicines. ?Eat foods that are high in fiber, such as beans, whole grains, and fresh fruits and vegetables. ?Limit foods that are high in fat and processed sugars, such as fried or sweet foods. Incision care Follow instructions from your health care provider about how to take care of your incisions. Make sure you: ?Wash your hands with soap and water for at least 20 seconds before and after you change your bandage (dressing). If soap and water are not available, use hand scientific database curator. ?Change your dressing as told by your health care provider. ?Leave stitches (sutures), skin glue, or adhesive strips in place. These skin closures may need to be in place for 2 weeks or longer. If adhesive strip edges start to loosen and curl up, you may trimthe loose edges. Do not remove adhesive strips completely unless your health care provider tells you to do that. Do not take baths, swim, or use a hot tub until your health care provider approves. Ask your healthcare provider if you may take showers. You may only be allowed to take sponge baths. Check your incision area every day for signs of infection. Check for: ?More redness, swelling, or pain. ?Fluid or blood. ?Warmth. ?Pus or a bad smell. Activity Rest as told by your health care provider. Do not do activities that require a lot of effort. Avoid sitting for a long time without moving. Get up to take short walks every 1 2 hours. This is important to improve blood flow and breathing. Ask for help if you feel weak or unsteady. Do not lift anything that is heavier than 10 lb (4.5 kg), or the limit that you are told, until your health care provider says that it is safe. Do not play contact sports until your health care provider approves. Do not return to work or school until your health care provider approves. Return to your normal activities as told by your health care provider. Ask your health care provider what activities are safe for you. General instructions If you were given a sedative during the procedure, it can affect you for several hours. Do not drive or operate machinery until your health care provider says that it is safe. Keep all follow-up visits. This is important. Contact a health care provider if: You develop a rash. You have more redness, swelling, or pain around your incisions. You have fluid or blood coming from your incisions. Your incisions feel warm to the touch. You have pus or a bad smell coming from your incisions. You have a fever. One or more of your incisions breaks open. Get help right away if: You have trouble breathing. You have chest pain. You have more pain in your shoulders. You faint or feel dizzy when you stand. You have severe pain in your abdomen. You have nausea or vomiting that lasts for more than one day. You have leg pain that is new or unusual, or if it is localized to one specific spot. These symptoms may represent a serious problem that is an emergency. Do not wait to see if the symptoms will go away. Get medical help right away. Call your local emergency services (911 in the [place] Do not drive yourself to the hospital. Summary After your procedure, it is common to have pain at the incision sites. You may also have nausea or bloating. Follow your health care provider's instructions about medicine, activity restrictions, and caring for your incision areas. Do not do activities that require a lot of effort. Contact a health care provider if you have a fever or other signs of infection, such as more redness, swelling, or pain around the incisions. Get help right away if you have chest pain, increasing pain in the shoulders, or trouble breathing. This information is not intended to replace advice given to you by your health care provider. Make sure you discuss any questions you have with your health care provider. Document Revised: 04/23/2022 Document Reviewed: 04/23/2022 [employer] Patient Education 2022 [employer]. Follow Up Care 04/27/2024 14:52:37 With:Aakash Levy Address: [address], [address] [address] [phone] Business (1) When: Unknown Comments:Appointment has already been scheduled [facility] 07-24-2024 NoteProvider reviewed event monitor strip with Dr Mateo Mckay in light no response received from Dr Puentes- which may be r/t his schedule/vacation. Dr Mckay states to have pt admitted to [facility] for Third degree heart block. Provider attempted to call pt and went directly to voice mail that is Full. Attempted to call her second contact- Friend Anne and this also went directly to voice mail. Staff will continue to attempt to call her to either come to [facility] ED and transfer to [facility] or directly to [facility] for admission. Addendum- Was able to reach pt and D/W pt that event monitor shows 3rd degree heart block and Dr Mateo Mckay recommends pt to go to ED/ or [facility] for admission for heart block and most likely will need perm pacemaker insertion and she voiced understanding. [facility] Admission/beds called and notified. Pt states she is going to [facility] per request of her general surgeon and will ask for transfer from there. Debbie Sigala NPC [place] Cardiology Available 7a-5pm via [employer] Chat Pager [phone] [facility]07-[facility]-2024 NotePatient Education - Text Gastroenterology Minimally Invasive Cholecystectomy, Care After The following information offers guidance on how to care for yourself after your procedure. Your health care provider may also give you more specific instructions. If you have problems or questions, contact your health care provider. What can I expect after the procedure? After the procedure, it is common to have: ? Pain at your incision sites. You will be given medicines to control this pain. ? Mild nausea or vomiting. ? Bloating and possible shoulder pain from the gas that was used during the procedure. Follow these instructions at home: Medicines ? Take ikas-hyv-jdkshaj and prescription medicines only as told by your health care provider. ? If you were prescribed an antibiotic medicine, take it as told by your health care provider. Do not stop using the antibiotic even if you start to feel better. ? Ask your health care provider if the medicine prescribed to you: ? Requires you to avoid driving or using machinery. ? Can cause constipation. You may need to take these actions to prevent or treat constipation: ? Drink enough fluid to keep your urine pale yellow. ? Take vabf-kyf-vvjnlky or prescription medicines. ? Eat foods that are high in fiber, such as beans, whole grains, and fresh fruits and vegetables. ? Limit foods that are high in fat and processed sugars, such as fried or sweet foods. Incision care ? Follow instructions from your health care provider about how to take care of your incisions. Makesure you: ? Wash your hands with soap and water for at least 20 seconds before and after you change your bandage (dressing). If soap and water are not available, use hand scientific database curator. ? Change your dressing as told by your health care provider. ? Leave stitches (sutures), skin glue, or adhesive strips in place. These skin closures may need sophia in place for 2 weeks or longer. If adhesive strip edges start to loosen and curl up, you may trim the loose edges. Do not remove adhesive strips completely unless your health care provider tells you to do that. ? Do not take baths, swim, or use a hot tub until your health care provider approves. Ask your health care provider if you may take showers. You may only be allowed to take sponge baths. ? Check your incision area every day for signs of infection. Check for: ? More redness, swelling, or pain. ? Fluid or blood. ? Warmth. ? Pus or a bad smell. Activity ? Rest as told by your health care provider. Do not do activities that require a lot of effort. ? Avoid sitting for a long time without moving. Get up to take short walks every 1?2 hours. This isimportant to improve blood flow and breathing. Ask for help if you feel weak or unsteady. ? Do not lift anything that is heavier than 10 lb (4.5 kg), or the limit that you are told, until your health care provider says that it is safe. ? Do not play contact sports until your health care provider approves. ? Do not return to work or school until your health care provider approves. ? Return to your normal activities as told by your health care provider. Ask your health care provider what activities are safe for you. General instructions ? If you were given a sedative during the procedure, it can affect you for several hours. Do not drive or operate machinery until your health care provider says that it is safe. ? Keep all follow-up visits. This is important. Contact a health care provider if: ? You develop a rash. ? You have more redness, swelling, or pain around your incisions. ? You have fluid or blood coming from your incisions. ? Your incisions feel warm to the touch. ? You have pus or a bad smell coming from your incisions. ? You have a fever. ? One or more of your incisions breaks open. Get help right away if: ? You have trouble breathing. ? You have chest pain. ? You have more pain in your shoulders. ? You faint or feel dizzy when you stand. ? You have severe pain in your abdomen. ? You have nausea or vomiting that lasts for more than one day. ? You have leg pain that is new or unusual, or if it is localized to one specific spot. These symptoms may represent a serious problem that is an emergency. Do not wait to see if the symptoms will go away. Get medical help right away. Call your local emergency services (911 in the [place] Do not drive yourself to the hospital. Summary ? After your procedure, it is common to have pain at the incision sites. You may also have nausea or bloating. ? Follow your health care provider's instructions about medicine, activity restrictions, and caringfor your incision areas. Do not do activities that require a lot of effort. ? Contact a health care provider if you have a fever or other signs of infection, such as more redness, swelling, or pain around the incisions. (more content not included)...[facility]07-24-2024 NoteH&P Update History and Physical Update H&P Reviewed. Patient seen and examined, appropriate for planned surgery Problem List/Past Medical History Ongoing Abrasion, right lower leg, initial encounter Benign essential HTN BMI 40.0-44.9, adult Cervical spine degeneration Class 3 severe obesity with serious comorbidity in adult Emphysema of lung Fatigue FHx: thyroid cancer Flank pain Fracture of right wrist with routine healing Gall stones Herniated cervical disc Hip pain, left Hydronephrosis Hyperglycemia Hyperlipidemia Kidney stones Major depressive disorder, recurrent, mild Need for tetanus booster Nocturia Osteopenia Patient had no falls in past year Personal history of tobacco use Screening for breast cancer Smoker Urge incontinence Urinary urgency Vitamin D deficiency Wellness examination Worsening headaches Historical Anxiety Asthma BMI 37.0-37.9, adult Sicca syndrome Sinus congestion Smoker Tobacco abuse Procedure/Surgical History Open reduction of fracture (09/2023), Cataract extraction [...] Ovarian cystectomy, Suspension of bladder, TUBAL LIGATION. Medications Albuterol (Eqv-ProAir HFA) 90 mcg/inh inhalation aerosol, 2 puff(s), Inhalation, q6hr, 6 refills cholecalciferol 50,000 intl units oral capsule, 1250 mcg= 1 cap(s), Oral, q7day duloxetine 60 mg oral delayed release capsule, 60 mg= 1 cap(s), Oral, Daily hydrochlorothiazide-lisinopril 25 mg-20 mg Tab, 1 tab(s), Oral, Daily HYDROmorphone 1 mg/mL injectable solution, 0.4 mg= 0.4 mL, IV Push, q4min, PRN Lactated Ringers IV Lizz 1000 mL 1,000 mL, 1000 mL, IV Lactated Ringers IV Lizz 1000 mL 1,000 mL, 1000 mL, IV nicotine 7 mg/24 hr Transderm ER Film, 1 patch(es), Topical, Daily, 1 refills [place] 325 mg-5 mg oral tablet, 1 tab(s), Oral, q6hr, PRN promethazine additive 12.5 mg + Sodium Chloride 0.9% IV Lizz 50 mL (INT) 50 mL Wellbutrin SR 150 mg Tab-ER, 150 mg= 1 tab(s), Oral, BID Zofran 4 mg Tab, 4 mg= 1 tab(s), Oral, q8hr, PRN Allergies Contrast Dye (Swelling, Hives) adhesives (redness) penicillins (Passed out, Hives) Social History Alcohol - Low Risk, 10/02/2021 Substance Abuse - Denies Substance Abuse, 11/08/2014 Tobacco - High Risk, 10/30/2023 4 or less cigarettes(less than 1/4 pack)/day in last 30 days Tobacco Use:. Never Smokeless Tobacco Use:. Cigarettes, .5 per day. Started age 22.0 Years. Previous treatment: Medications. Yes, 04/27/2024 Cigarettes, 09/10/2023 Family History CKD (chronic kidney disease): Mother. Colon cancer: Grandparent. Diabetes mellitus type 2: Mother. Hypertension: Mother and Father. Melanoma: Sister. TIA (transient ischemic attack): Mother.[facility]07-13-2024 NoteRecommended smoking cessationAdena [facility]24 NoteHypertension is unchanged. Continue current medications. Blood pressure will be reassessed at the next regular appointment.[facility]07-12-2024 NoteRoutine stress test and 30 day event monitor To assess chronotropic response and for any higher grade AV block.[facility]07-12-2024 NotePatient here for 6 mo follow up. She had echo last week. She needs cleared for cholecystectomy scheduled for 05/26/2024 at [facility]. Denies chest pain and palpitations. She is now on antihypertensive medication. Review of Systems Cardiovascular: Positive for dyspnea on exertion (with steps) and leg swelling (resolves by morning). Respiratory: Positive for cough and wheezing. Musculoskeletal: Positive for arthritis, joint pain and neck pain. Psychiatric/Behavioral: Positive for depression. All other systems reviewed and are negative.[facility] 05-14-2024 NotePt has received a PPM and has F/U with Dr Puentes yesterday [facility]07-12-2024 NoteUTP CARDIOLOGY PROGRESS NOTE HPI: Melba Zapata is a 69 y.o. female here for surgery clearance and review echocardiogram HPI 69 y.o. female here with past medical history of tobacco dependence, depression and arthritis. Patient here for 6 mo follow up. She had echo last week. She needs cleared for cholecystectomy scheduled for 05/26/2024 at [facility]. Denies chest pain and palpitations. She is now on antihypertensive medication, states b/p is well controlled at home. Denied chest pain, reports typical SOB with exertion, denied orthopnea, palpitations, lightheadedness/dizziness, or syncope. Review of Systems Cardiovascular: Positive for dyspnea on exertion (with steps) and leg swelling (resolves by morning). Respiratory: Positive for cough and wheezing. Musculoskeletal: Positive for arthritis, joint pain and neck pain. Psychiatric/Behavioral: Positive for depression. All other systems reviewed and are negative Visit Vitals BP 118/78 (BP Location: Left arm, Patient Position: Sitting) Pulse 81 Ht 1.676 m (5' 6 ) Wt 105 kg (231 lb) SpO2 95% BMI 37.28 kg/m??? Smoking Status Every Day BSA 2.21 m??? Allergies Allergen Reactions Iodinated Contrast Media Hives OK for topical iodine Penicillins Medications: Current Outpatient Medications on File Prior to Visit Medication Sig Dispense Refill albuterol 90 mcg/actuation inhaler INHALE 2 PUFFS EVERY 6 HOURS cholecalciferol (Vitamin D-3) 1,250 mcg (50,000 unit) capsule Take 1,250 mcg by mouth 1 (one) time per week. DULoxetine (Cymbalta) [address] capsule Take 60 mg by mouth in the morning. Do not crush or chew. lisinopriL-hydrochlorothiazide 20-25 mg tablet Take 1 tablet by mouth once daily as directed. Wellbutrin SR 150 mg 12 hr tablet Take 150 mg by mouth in the morning and at bedtime. No current facility-administered medications on file prior to visit. Physical Exam: Constitutional: Appearance: Normal appearance. Without apparent distress HENT: Head: Normocephalic and atraumatic. Nose: Nose normal. Mouth/Throat: Mouth: Mucous membranes are moist. Eyes: Extraocular Movements: Extraocular movements intact. Conjunctiva/sclera: Conjunctivae normal. Neck: Vascular: No JVD. Cardiovascular: Rate and Rhythm: Normal rate and regular rhythm. Pulses: Dorsalis pedis pulses are 3 on the right side and 3on the left side. Posterior tibial pulses are 3 on the right side and 3 on the left side. Heart sounds: Normal heart sounds, S1 normal and S2 normal. Pulmonary: Effort: Pulmonary effort is normal. Breath sounds: Normal breath sounds. Abdominal: General: Bowel sounds are normal. Palpations: Abdomen is soft. Musculoskeletal: General: Normal range of motion. Cervical back: Normal range of motion. Right lower leg: No edema. Left lower leg: No edema. Skin: General: Skin is warm and dry. Capillary Refill: Capillary refill takes less than 2 seconds. Neurological: General: No focal deficit present. Mental Status: She is alert and oriented to person, place, and time. Psychiatric: Mood and Affect: Mood normal. Behavior: Behavior normal. Thought Content: Thought content normal. Judgment: Judgment normal. Labs: 04/02/24 CBC normal NA 140, K+ 4.0 BUN 21, CR 1.0 GFR 61 LFT normal A1c 5.6 Chol 192, Trig 110, HDL 46, LDL 132- elevated TSH 2.99 T4 free 0.87- normal 09/29/2023 WBC 12.5, hemoglobin 14.8, hematocrit 45.8, platelets 305 sodium 141, potassium 3.5, chloride 107, CO2 25.3, BUN 13, serum creatinine 0.83, estimated GFR greater than 60% Last lab values have been reviewed CV Testing: EKG today 05/14/24- Sinus rhythm with Wenkebach/ Mobitz type 1 Previous EKG was normal sinus rhythm 05/04/24 TTE 09/29/23 No echocardiogram results found for the past 12 months Assessment/Plan: Pre-operative cardiovascular examination RCRI=1 points Class II Risk 6.0 % 30-day risk of , MA, or cardiac arrest Pt has good functional/aerobic capacity- > 4 METS Review[address] EKG with Dr Puentes-electrophysiology and he recommends that in light she is asymptomatic with Mobitz1-wenkebach she may proceed with planned surgery. From a cardiac perspective pt may proceed with surgery, she is a low risk for a low to moderate risk procedure. Please monitor hemodynamics carefully and prevent any major fluid shifts. This is good for next 6 months Mobitz type I Wenckebach atrioventricular block Routine stress test and 30 day event monitor To assess chronotropic response and for any higher grade AV block. Hypertension Hypertension is unchanged. Continue current medications. Blood pressure will be reassessed at the next regular appointment. Smoker Recommended smoking cessationA[facility]07-12-2024 Note RCRI=1 points Class II Risk 6.0 % 30-day risk of , MA, or cardiac arrest Pt has good functional/aerobic capacity- > 4 METS Reviewed EKG with Dr Puentes-electrophysiology and he recommends that in light she is asymptomatic with Mobitz1-wenkebach she may proceed with planned surgery. From a cardiac perspective pt may proceed with surgery, she is a low risk for a low to moderate risk procedure. Please monitor hemodynamics carefully and prevent any major fluid shifts. This is good for next 6 months[facility]06[facility] Discharge instructions Patient Education 04/14/2024 15:14:45 Form - Blood Pressure Record Sheet Blood Pressure Record Sheet To take your blood pressure, you will need a blood pressure machine. You may be prescribed one, or you can buy a blood pressure machine (blood pressure monitor) at your clinic, drug store, or online.When choosing one, look for these features: An automatic monitor that has an arm cuff. A cuff that wraps snugly, but not too tightly, around your upper arm. You should be able to fit only one finger between your arm and the cuff. A device that stores blood pressure reading results. Do not choose a monitor that measures your blood pressure from your wrist or finger. Follow your health care provider's instructions for how to take your blood pressure. To use this form: Get one reading in the morning (a.m.) before you take any medicines. Get one reading in the evening (p.m.) before supper. Take at least two readings with each blood pressure check. This makes sure the results are correct.Wait 1 2 minutes between measurements. Write down the results in the spaces on this form. Repeat this once a week, or as told by your health care provider. Make a follow-up appointment with your health care provider to discuss the results. Blood pressure log Date: a.m. (1st reading) (2nd reading) p.m. (1st reading) (2nd reading) Date: a.m. (1st reading) (2nd reading) p.m. (1st reading) (2nd reading) Date: a.m. (1st reading) (2nd reading) p.m. (1st reading) (2nd reading) Date: a.m. (1st reading) (2nd reading) p.m. (1st reading) (2nd reading) Date: a.m. (1st reading) (2nd reading) p.m. (1st reading) (2nd reading) This information is not intended to replace advice given to you by your health care provider. Make sure you discuss any questions you have with your health care provider. Document Revised: 07/04/2022 Document Reviewed: 07/04/2022 [employer] Patient Education 2022 [employer] 04/14/2024 15:14:42 Obesity, Adult Obesity, Adult Obesity is the condition of having too much total body fat. Being overweight or obese means that your weight is greater than what is considered healthy for your body size. Obesity is determined by a measurement called BMI (body mass index). BMI is an estimate of body fat and is calculated from height and weight. For adults, a BMI of 30 or higher is considered obese. Obesity can lead to other health concerns and major illnesses, including: Stroke. Coronary artery disease (CAD). Type 2 diabetes. Some types of cancer, including cancers of the colon, breast, uterus, and gallbladder. High blood pressure (hypertension). High cholesterol. Gallbladder stones. Obesity can also contribute to: Osteoarthritis. Sleep apnea. Infertility problems. What are the causes? Common causes of this condition include: Eating daily meals that are high in calories, sugar, and fat. Drinking high amounts of sugar-sweetened beverages, such as soft drinks. Being born with genes that may make you more likely to become obese. Having a medical condition that causes obesity, including: ?Hypothyroidism. ?Polycystic ovarian syndrome (PCOS). ?Binge-eating disorder. ?Moon syndrome. Taking certain medicines, such as steroids, antidepressants, and seizure medicines. Not being physically active (sedentary lifestyle). Not getting enough sleep. What increases the risk? The following factors may make you more likely to develop this condition: Having a family history of obesity. Living in an area with limited access to: ?[place], recreation centers, or sidewalks. ?Healthy food choices, such as grocery stores and [employer]. What are the signs or symptoms? The main sign of this condition is having too much body fat. How is this diagnosed? This condition is diagnosed based on: Your BMI. If you are an adult with a BMI of 30 or higher, you are considered obese. Your waist circumference. This measures the distance around your waistline. Your skinfold thickness. Your health care provider may gently pinch a fold of your skin and measureit. You may have other tests to check for underlying conditions. How is this treated? Treatment for this condition often includes changing your lifestyle. Treatment may include some or all of the following: Dietary changes. This may include developing a healthy meal plan. Regular physical activity. This may include activity that causes your heart to beat faster (aerobicexercise) and strength training. Work with your health care provider to design an exercise program that works for you. Medicine to help you lose weight if you are unable to lose one pound a week after six weeks of healthy eating and more physical activity. Treating conditions that cause the obesity (underlying conditions). Surgery. Surgical options may include gastric banding and gastric bypass. Surgery may be done if: ?Other treatments have not helped to improve your condition. ?You have a BMI of 40 or higher. ?You have life-threatening health problems related to obesity. Follow these instructions at home: Eating and drinking Follow recommendations from your health care provider about what you eat and drink. Your health care provider may advise you to: ?Limit fast food, sweets, and processed snack foods. ?Choose low-fat options, such as low-fat milk instead of whole milk. ?Eat five or more servings of fruits or vegetables every day. ?Choose healthy foods when you eat out. ?Keep low-fat snacks available. ?Limit sugary drinks, such as soda, fruit juice, sweetened iced tea, and flavored milk. Drink enough water to keep your urine pale yellow. Do not follow a fad diet. Fad diets can be unhealthy and even dangerous. Other healthful choices include: ?Eat at home more often. This gives you more control over what you eat. ?Learn to read food labels. This will help you understand how much food is considered one serving. ?Learn what a healthy serving size is. Physical activity Exercise regularly, as told by your health care provider. ?Most adults should get up to 150 minutes of moderate-intensity exercise every week. ?Ask your health care provider what types of exercise are safe for you and how often you should exercise. Warm up and stretch before being active. Cool down and stretch after being active. Rest between periods of activity. Lifestyle Work with your health care provider and a dietitian to set a weight-loss goal that is healthy and reasonable for you. Limit your screen time. Find ways to reward yourself that do not involve food. Do not drink alcohol if: ?Your health [...] of hard liquor (44 mL). General instructions Keep a weight-loss journal to keep track of the food you eat and how much exercise you get. Take [id number] and prescription medicines only as told by your health care provider. Take vitamins and supplements only as told by your health care provider. Consider joining a support group. Your health care provider may be able to recommend a support group. Pay attention to your mental health as obesity can lead to depression or self esteem issues. Keep all follow-up visits. This is important. Contact a health care provider if: You are unable to meet your weight-loss goal after six weeks of dietary and lifestyle changes. You have trouble breathing. Summary Obesity is the condition of having too much total body fat. Being overweight or obese means that your weight is greater than what is considered healthy for your body size. Work with your health care provider and a dietitian to set a weight-loss goal that is healthy and reasonable for you. Exercise regularly, as told by your health care provider. Ask your health care provider what types of exercise are safe for you and how often you should exercise. This information is not intended to replace advice given to you by your health care provider. Make sure you discuss any questions you have with your health care provider. Document Revised: 05/28/2022 Document Reviewed: 05/28/2022 [employer] Patient Education 2022 [employer]. 04/14/2024 15:14:41 Exercising to Lose Weight Exercising to Lose Weight Getting regular exercise is important for everyone. It is especially important if you are overweight. Being overweight increases your risk of heart disease, stroke, diabetes, high blood pressure, andseveral types of cancer. Exercising, and reducing the [...] of moderate-intensity exercise a week to maintain theirbody weight. Vigorous-intensity exercise Vigorous-intensity exercise is any [...] you need and what types of activities aresafe for you. Nutrition Make changes to your diet as told by your health care provider or diet and claims specialist (dietitian). This may include: ?Eating fewer calories. ?Eating more protein. ?Eating less unhealthy fats. ?Eating a diet that includes fresh fruits and vegetables, whole grains, low-fat dairy products, andlean protein. ?Avoiding foods with added fat, salt, [...] provider. Document Revised: 12/16/2021 Document Reviewed: 12/16/2021 [employer] Patient Education 2022 [employer]. 04/14/2024 15:14:37 Chronic Obstructive Pulmonary Disease Chronic Obstructive Pulmonary Disease Chronic obstructive pulmonary disease (COPD) is a long-term (chronic) condition that affects the lungs. COPD is a general term that can be used to describe many different lung problems that cause lung inflammation and limit airflow, including chronic bronchitis and emphysema. If you have COPD, your lung function will probably never return to normal. In most cases, it gets worse over time. However, there are steps you can take to slow the progression of the disease and improve your quality of life. What are the causes? This condition may be caused by: Smoking. This is the most common cause. Certain genes passed down through families. What increases the risk? The following factors may make you more likely to develop this condition: Being exposed to secondhand smoke from cigarettes, pipes, or cigars. Being exposed to chemicals and other irritants, such as fumes and dust in the work environment. Having chronic lung conditions or infections. What are the signs or symptoms? Symptoms of this condition include: Shortness of breath, especially during physical activity. Chronic cough with a large amount of thick mucus. Sometimes, the cough may not have any mucus (dry cough). Wheezing and rapid breathing. Valle or bluish discoloration (cyanosis) of the skin, especially in the fingers, toes, or lips. Feeling tired (fatigue). Weight loss. Chest tightness. Frequent infections. Episodes when breathing symptoms become much worse (exacerbations). At the later stages of this disease, you may have swelling in the ankles, feet, or legs. How is this diagnosed? This condition is diagnosed based on: Your medical history. A physical exam. You may also have tests, including: Lung (pulmonary) function tests. This may include a spirometry test, which measures your ability toexhale properly. Chest X-ray. CT scan. Blood tests. How is this treated? This condition may be treated with: Medicines. These may include inhaled rescue medicines to treat acute exacerbations as well as medicines that you take long-term (maintenance medicines) to prevent flare-ups of COPD. ?Bronchodilators help treat COPD by dilating the airways to allow increased airflow and make your breathing more comfortable. ?Steroids can reduce airway inflammation and help prevent exacerbations. Smoking cessation. If you smoke, your health care provider may ask you to quit, and may also recommend therapy or replacement products to help you quit. Pulmonary rehabilitation. This may involve working with a team of health care providers and specialists, such as respiratory, occupational, and physical therapists. Exercise and physical activity. These are beneficial for nearly all people with COPD. Nutrition therapy to gain weight, if you are underweight. Oxygen. Supplemental oxygen therapy is only helpful if you have a low oxygen level in your blood (hypoxemia). Lung surgery or transplant. Palliative care. This is to help people with COPD feel comfortable when treatment is no longer working. Follow these instructions at home: Medicines Take [id number] and prescription medicines only as told by your health care provider. This includes inhaled medicines and pills. Talk to your health care provider before taking any cough or allergy medicines. You may need to avoid certain medicines that dry out your airways. Lifestyle If you smoke, the most important thing that you can do is to stop smoking. Continuing to smoke willcause the disease to progress faster. Do not use any products that contain nicotine or tobacco. These products include cigarettes, chewing tobacco, and vaping devices, such as e-cigarettes. If you need help quitting, ask your health careprovider. Avoid exposure to things that irritate your lungs, such as smoke, chemicals, and fumes. Stay active, but balance activity with periods of rest. Exercise and physical activity will help you maintain your ability to do things you want to do. Learn and use relaxation techniques to manage stress and to control your breathing. Get the right amount of sleep and get quality sleep. Most adults need 7 or more hours per night. Eat healthy foods. Eating smaller, more frequent meals and resting before meals may help you maintain your strength. Controlled breathing Learn and use controlled breathing techniques as directed by your health care provider. Controlled breathing techniques include: Pursed lip breathing. Start by breathing in (inhaling) through your nose for 1 second. Then, purse your lips as if you were going to whistle and breathe out (exhale) through the pursed lips for 2 seconds. Diaphragmatic breathing. Start by putting one hand on your abdomen just above your waist. Inhale slowly through your nose. The hand on your abdomen should move out. Then purse your lips and exhale slowly. You should be able to feel the hand on your abdomen moving in as you exhale. Controlled coughing Learn and use controlled coughing to clear mucus from your lungs. Controlled coughing is a series of short, progressive coughs. The steps of controlled coughing are: 1.Lean your head slightly forward. 2.Breathe in deeply using diaphragmatic breathing. 3.Try to hold your breath for 3 seconds. 4.Keep your mouth slightly open while coughing twice. 5.Spit any mucus out into a tissue. 6.Rest and repeat the steps once or twice as needed. General instructions Make sure you receive all the vaccines that your health care provider recommends, especially the pneumococcal and influenza vaccines. Preventing infection and hospitalization is very important when you have COPD. Drink enough fluid to keep your urine pale yellow, unless you have a medical condition that requires fluid restriction. Use oxygen therapy and pulmonary rehabilitation if told by your health care provider. If you require home oxygen therapy, ask your health care provider whether you should purchase a pulse oximeter tomeasure your oxygen level at home. Work with your health care provider to develop a COPD action plan. This will help you know what steps to take if your condition gets worse. Keep other chronic health conditions under control as told by your health care provider. Avoid extreme temperature and humidity changes. Avoid contact with people who have an illness that spreads from person to person (is contagious), such as viral infections or pneumonia. Keep all follow-up visits. This is important. Contact a health care provider if: You are coughing up more mucus than usual. There is a change in the color or thickness of your mucus. Your breathing is more labored than usual. Your breathing is faster than usual. You have difficulty sleeping. You need to use your rescue medicines or inhalers more often than expected. You have trouble doing routine activities such as getting dressed or walking around the house. Get help right away if: You have shortness of breath while you are resting. You have shortness of breath that prevents you from: ?Being able to talk. ?Performing your usual physical activities. You have chest pain lasting longer than 5 minutes. Your skin color is more blue (cyanotic) than usual. You measure low oxygen saturations for longer than 5 minutes with a pulse oximeter. You have a fever. You feel too tired to breathe normally. These symptoms may represent a serious problem that is an emergency. Do not wait to see if the symptoms will go away. Get medical help right away. Call your local emergency services (911 in the [place] Do not drive yourself to the hospital. Summary Chronic obstructive pulmonary disease (COPD) is a long-term (chronic) condition that affects the lungs. Your lung function will probably never return to normal. In most cases, it gets worse over time. However, there are steps you can take to slow the progression of the disease and improve your quality of life. Treatment for COPD may include taking medicines, quitting smoking, pulmonary rehabilitation, and changes to diet and exercise. As the disease progresses, you may need oxygen therapy, a lung transplant, or palliative care. To help manage your condition, do not smoke, avoid exposure to things that irritate your lungs, stay up to date on all vaccines, and follow your health care provider's instructions for taking medicines. This information is not intended to replace advice given to you by your health care provider. Make sure you discuss any questions you have with your health care provider. Document Revised: 08/28/2021 Document Reviewed: 08/28/2021 [employer] Patient Education 2022 [employer]. 04/14/2024 15:14:33 How to Use a Dry Powder Inhaler, [id number] How to Use a Dry Powder Inhaler A dry powder inhaler (DPI) is a device for taking medicine that must be breathed into the lungs (inhaled). The medicine used in a DPI is a very fine powder. It is important to take fast, deep breathsthrough the mouthpiece of a DPI to get the full amount of medicine. There are many types of dry powder inhalers. The most common are: Disc inhaler. These are shaped like a disc. The medicine is loaded when you slide the lever. Twist inhaler. The medicine is loaded when you twist the inhaler. Follow directions for use from your doctor. Read the package instructions that come with your inhaler. What are the risks? If you do not use your inhaler correctly, medicine might not get to your lungs to help you breathe. The medicine in the DPI can cause side effects, such as: ?Mouth sores (thrush). ?Cough. ?A voice that sounds rough (hoarseness). ?Feeling shaky. ?Headache. Supplies needed: Dry powder inhaler. The medicine that you will need comes in or with the DPI. How to use a dry powder inhaler The exact steps for use will vary based on the type of dry powder inhaler you have. In general, youshould follow these steps: 1.Remove any gum or candy from your mouth. 2.Stand or sit up straight. 3.Load the medicine in your inhaler, depending on the type of DPI you have. 4.Turn your head away from your inhaler. Breathe out. Do not breathe out into the mouthpiece. 5.Turn your head back to the mouthpiece and seal your lips around it. 6.Take a quick, deep breath in through your mouth. Do not breathe through your nose. 7.Hold your breath for 10 seconds. 8.Remove the inhaler from your mouth, turn your head, and breathe out slowly. 9.You may not feel the medicine going into your lungs. This is normal. 10.Check the dose number on the inhaler. It should go down when you use it. 11.Rinse your mouth with water. Do not swallow the water. Follow these instructions at home: Caring for your DPI Store your inhaler in a dry place at room temperature. Do not store it in your bathroom. Do not breathe into the inhaler. Do not drop or shake your inhaler. Do not wash your inhaler. If the mouthpiece gets dirty, use a dry cloth to wipe it clean. Keep track of your doses: ?When the dose number is low, it is time to orange picker machine operator a new DPI at your pharmacy. ?When the dose number shows zero (0), throw away the device. General instructions Take your inhaled medicine only as told by your doctor. Do not use any products that contain nicotine or tobacco, such as cigarettes, e- cigarettes, and chewing tobacco. If you need help quitting, ask your doctor. If you have any questions about how to use your DPI, talk with your doctor or pharmacist. Keep all follow-up visits as told by your doctor. This is important. Where to find more information [employer] [employer]: www.lung.org Contact a doctor if: You have a sore mouth. You have a sore throat. You have a lasting (persistent) cough. Your voice changes. You have side effects from the medicine. You are having trouble using your DPI. Get help right away if: You have very bad shortness of breath. You have trouble breathing. These symptoms may be an emergency. Do not wait to see if the symptoms will go away. Get medical help right away. Call your local emergency services (911 in the [place] Do not drive yourself to the hospital. Summary A dry powder inhaler (DPI) is a device that has medicine in it that should help you breathe better. Take your inhaled medicine only as told by your doctor. If you have any questions about how to use your DPI, talk with your doctor or pharmacist. This information is not intended to replace advice given to you by your health care provider. Make sure you discuss any questions you have with your health care provider. Document Revised: 11/21/2020 Document Reviewed: 11/21/2020 [employer] Patient Education 2022 [employer]. 04/14/2024 15:14:26 Heart Disease Prevention Heart Disease Prevention Heart disease is the leading cause of in the world. Coronary artery disease is the most common cause of heart disease. This condition results when cholesterol and other substances (plaque) build up inside the rosa of the blood vessels that supply your heart muscle (arteries). This buildup inarteries is called atherosclerosis. You can take actions [...] much sodium is safe for you. Most peopleshould have less than 2,300 mg each day. [...] of hard liquor (44 mL). Medicines Take hagt-fai-atfxucs and prescription medicines only as told by [...] should be no higher than 120, and thelower number (diastolic) no higher than 80. Treatment [...] Centers for Disease Control and Prevention: www.cdc.gov/heartdisease [employer] [employer]: www.heart.org Summary Heart disease is [...] provider. Document Revised: 06/19/2022 Document Reviewed: 06/19/2022 [employer] Patient Education 2022 [employer]. 04/14/2024 15:14:23 Stroke Prevention Stroke Prevention Some medical conditions and behaviors can lead to a higher chance of having a stroke. You can help prevent a stroke by eating healthy, exercising, not smoking, and managing any medical conditions youhave. Stroke is a leading cause of functional impairment. Primary prevention is particularly important because a majority of strokes are first-time events. Stroke changes the lives of not only those who experience a stroke but also their family and other caregivers. How can this condition affect me? A stroke is a medical emergency and should be treated right away. A stroke can lead to brain damageand can sometimes be life-threatening. If a person gets medical treatment right away, there is a better chance of surviving and recovering from a stroke. What can increase my risk? The following medical conditions may increase your risk of a stroke: Cardiovascular disease. High blood pressure (hypertension). Diabetes. High cholesterol. Sickle cell disease. Blood clotting disorders (hypercoagulable state). Obesity. Sleep disorders (obstructive sleep apnea). Other risk factors include: Being older than age 60. Having a history of blood clots, stroke, or mini-stroke (transient ischemic attack, TIA). Genetic factors, such as race, ethnicity, or a family history of stroke. Smoking cigarettes or using other tobacco products. Taking control pills, especially if you also use tobacco. Heavy use of alcohol or drugs, especially cocaine and methamphetamine. Physical inactivity. What actions can I take to prevent this? Manage your health conditions High cholesterol levels. ?Eating a healthy diet is important for preventing high cholesterol. If cholesterol cannot be managed through diet alone, you may need to take medicines. ?Take any prescribed medicines to control your cholesterol as told by your health care provider. Hypertension. ?To reduce your risk of stroke, try to keep your blood pressure below 130/80. ?Eating a healthy diet and exercising regularly are important for controlling blood pressure. If these steps are not enough to manage your blood pressure, you may need to take medicines. ?Take any prescribed medicines to control hypertension as told by your health care provider. ?Ask your health care provider if you should monitor your blood pressure at home. ?Have your blood pressure checked every year, even if your blood pressure is normal. Blood pressureincreases with age and some medical conditions. Diabetes. ?Eating a healthy diet and exercising regularly are important parts of managing your blood sugar (glucose). If your blood sugar cannot be managed through diet and exercise, you may need to take medicines. ?Take any prescribed medicines to control your diabetes as told by your health care provider. Get evaluated for obstructive sleep apnea. Talk to your health care provider about getting a sleep evaluation if you snore a lot or have excessive sleepiness. Make sure that any other medical conditions you have, such as atrial fibrillation or atherosclerosis, are managed. Nutrition Follow instructions from your health care provider about what to eat or drink to help manage your health condition. These instructions may include: Reducing your daily calorie intake. Limiting how much salt (sodium) you use to 1,500 milligrams (mg) each day. Using only healthy fats for cooking, such as olive oil, canola oil, or sunflower oil. Eating healthy foods. You can do this by: ?Choosing foods that are high in fiber, such as whole grains, and fresh fruits and vegetables. ?Eating at least 5 servings of fruits and vegetables a day. Try to fill one-half of your plate withfruits and vegetables at each meal. ?Choosing lean protein foods, such as lean cuts of meat, poultry without skin, fish, tofu, beans, and nuts. ?Eating low-fat dairy products. Avoiding foods that are high in sodium. This can help lower blood pressure. Avoiding foods that have saturated fat, trans fat, and cholesterol. This can help prevent high cholesterol. Avoiding processed and prepared foods. Counting your daily carbohydrate intake. Lifestyle If you drink alcohol: ?Limit how much you have to: ?0 1 drink a day for women who are not . ?0 2 drinks a day for men. ?Know how much alcohol is in your drink. In the [place] one drink equals one 12 oz bottle of beer (355mL), one 5 oz glass of wine (148mL), or one 1 oz glass of hard liquor (44mL). Do not use any products that contain nicotine or tobacco. These products include cigarettes, chewing tobacco, and vaping devices, such as e-cigarettes. If you need help quitting, ask your health careprovider. Avoid secondhand smoke. Do not use drugs. Activity Try to stay at a healthy weight. Get at least 30 minutes of exercise on most days, such as: ?Fast walking. ?Biking. ?Swimming. Medicines Take yxkr-edx-yofilqn and prescription medicines only as told by your health care provider. Aspirinor blood thinners (antiplatelets or anticoagulants) may be recommended to reduce your risk of forming blood clots that can lead to stroke. Avoid taking control pills. Talk to your health care provider about the risks of taking birthcontrol pills if: ?You are over 35 years old. ?You smoke. ?You get very bad headaches. ?You have had a blood clot. Where to find more information [employer] [employer]: www.strokeassociation.org Get help right away if: You or a loved one has any symptoms of a stroke. BE FAST is an easy way to remember the main warning signs of a stroke: ?B - Balance. Signs are dizziness, sudden trouble walking, or loss of balance. ?E - Eyes. Signs are trouble seeing or a sudden change in vision. ?F - Face. Signs are sudden weakness or numbness of the face, or the face or eyelid drooping on oneside. ?A - Arms. Signs are weakness or numbness in an arm. This happens suddenly and usually on one side of the body. ?S - Speech. Signs are sudden trouble speaking, slurred speech, or trouble understanding what people say. ?T - Time. Time to call emergency services. Write down what time symptoms started. You or a loved one has other signs of a stroke, such as: ?A sudden, severe headache with no known cause. ?Nausea or vomiting. ?Seizure. These symptoms may represent a serious problem that is an emergency. Do not wait to see if the symptoms will go away. Get medical help right away. Call your local emergency services (911 in the [place] Do not drive yourself to the hospital. Summary You can help to prevent a stroke by eating healthy, exercising, not smoking, limiting alcohol intake, and managing any medical conditions you may have. Do not use any products that contain nicotine or tobacco. These include cigarettes, chewing tobacco, and vaping devices, such as e-cigarettes. If you need help quitting, ask your health care provider. Remember BE FAST for warning signs of a stroke. Get help right away if you or a loved one has anyof these signs. This information is not intended to replace advice given to you by your health care provider. Make sure you discuss any questions you have with your health care provider. Document Revised: 05/21/2021 Document Reviewed: 05/21/2021 [employer] Patient Education 2022 [employer]. 04/14/2024 15:14:19 High Triglycerides Eating Plan High Triglycerides Eating Plan Triglycerides are a type of fat in the blood. High levels of triglycerides can increase your risk of heart disease and stroke. If your triglyceride levels are high, choosing the right foods can help lower your triglycerides and keep your heart healthy. Work with your health care provider or a dietitian to develop an eating plan that is right for you. What are tips for following this plan? General guidelines Lose weight, if you are overweight. For most people, losing 5 10 lb (2 5 kg) helps lower triglyceride levels. A weight-loss plan may include: ?30 minutes of exercise at least 5 days a week. ?Reducing the amount of calories, sugar, and fat you eat. Eat a wide variety of fresh fruits, vegetables, and whole grains. These foods are high in fiber. Eat foods that contain healthy fats, such as fatty fish, nuts, seeds, and olive oil. Avoid foods that are high in added sugar, added salt (sodium), and saturated fat. Avoid low-fiber, refined carbohydrates such as white bread, crackers, noodles, and white rice. Avoid foods with trans fats or partially hydrogenated oils, such as fried foods or stick margarine. If you drink alcohol: ?Limit how much you have to: ?0 1 drink a day for women who are not . ? 0 2 drinks a day for men. ?Your health care provider may recommend that you drink less than these amounts depending on your overall health. ?Know how much alcohol is in a drink. In the [place] one drink equals one 12 oz bottle of beer (355 mL), one 5 oz glass of wine (148 mL), or one 1 oz glass of hard liquor (44 mL). Reading food labels Check food labels for: The amount of saturated fat. Choose foods with no or very little saturated fat (less than 2 g). The amount of trans fat. Choose foods with no transfat. The amount of cholesterol. Choose foods that are low in cholesterol. The amount of sodium. Choose foods with less than 140 milligrams (mg) per serving. Shopping Buy dairy products labeled as nonfat (skim) or low-fat (1%). Avoid buying processed or prepackaged foods. These are often high in added sugar, sodium, and fat. Cooking Choose healthy fats when cooking, such as olive oil, avocado oil, or canola oil. Cook foods using lower fat methods, such as baking, broiling, boiling, or grilling. Make your own sauces, dressings, and marinades when possible, instead of buying them. Store-bought sauces, dressings, and marinades are often high in sodium and sugar. Meal planning Eat more home-cooked food and less restaurant, buffet, and fast food. Eat fatty fish at least 2 times each week. Examples of fatty fish include salmon, trout, sardines, mackerel, tuna, and parnell. If you eat whole eggs, do not eat more than 4 egg yolks per week. What foods should I eat? Fruits All fresh, canned (in natural juice), or frozen fruits. Vegetables Fresh or frozen vegetables. Low-sodium canned vegetables. Grains Whole wheat or whole grain breads, crackers, cereals, and pasta. Unsweetened oatmeal. Bulgur. Barley. Quinoa. Brown rice. Whole wheat flour tortillas. Meats and other proteins Skinless chicken or turkey. Ground chicken or turkey. Lean cuts of pork, trimmed of fat. Fish and seafood, especially salmon, trout, and parnell. Egg whites. Dried beans, peas, or lentils. Unsalted nuts or seeds. Unsalted canned beans. Natural peanut or almond butter or other nut butters. Dairy Low-fat dairy products. Skim or low-fat (1%) milk. Reduced fat (2%) and low- sodium cheese. Low-fat ricotta cheese. Low-fat cottage cheese. Plain, low-fat yogurt. Fats and oils Tub margarine without trans fats. Light or reduced-fat mayonnaise. Light or reduced-fat salad dressings. Avocado. Safflower, olive, sunflower, soybean, and canola oils. The items listed above may not be a complete list of recommended foods and beverages. Talk with your dietitian about what dietary choices are best for you. What foods should I avoid? Fruits Sweetened dried fruit. Canned fruit in syrup. Fruit juice. Vegetables Creamed or fried vegetables. Vegetables in a cheese sauce. Grains White bread. White (regular) pasta. White rice. Cornbread. Bagels. Pastries. Crackers that contain trans fat. Meats and other proteins Fatty cuts of meat. Ribs. Chicken wings. Jaime. Sausage. Bologna. Salami. Chitterlings. Fatback. Hot dogs. Bratwurst. Packaged lunch meats. Dairy Whole or reduced-fat (2%) milk. Srzg-eto-xxkl. Cream cheese. Full-fat or sweetened yogurt. Full-fatcheese. Nondairy creamers. Whipped toppings. Processed cheese or cheese spreads. Cheese curds. Fats and oils Butter. Stick margarine. Lard. Shortening. Ghee. Jaime fat. Tropical oils, such as coconut, palm kernel, or palm oils. Beverages Alcohol. Sweetened drinks, such as soda, lemonade, fruit drinks, or punches. Sweets and desserts [place] syrup. Sugars. Honey. Molasses. Candy. Jam and jelly. Syrup. Sweetened cereals. Cookies. Pies.Cakes. Donuts. Muffins. Ice cream. Condiments Store-bought sauces, dressings, and marinades that are high in sugar, such as ketchup and barbecue sauce. The items listed above may not be a complete list of foods and beverages you should avoid. Talk with your dietitian about what dietary choices are best for you. Summary High levels of triglycerides can increase the risk of heart disease and stroke. Choosing the right foods can help lower your triglycerides. Eat plenty of fresh fruits, vegetables, and whole grains. Choose low-fat dairy and lean meats. Eat fatty fish at least twice a week. Avoid processed and prepackaged foods with added sugar, sodium, saturated fat, and trans fat. If you need suggestions or have questions about what types of food are good for you, talk with yourhealth care provider or a dietitian. This information is not intended to replace advice given to you by your health care provider. Make sure you discuss any questions you have with your health care provider. Document Revised: 03/01/2022 Document Reviewed: 03/01/2022 [employer] Patient Education 2022 [employer]. 04/14/2024 15:14:17 Dyslipidemia Dyslipidemia Dyslipidemia is an imbalance of waxy, fat-like substances (lipids) in the blood. The body needs lipids in small amounts. Dyslipidemia often involves a high level of cholesterol or triglycerides, which are types of lipids. Common forms of dyslipidemia include: High levels of LDL cholesterol. LDL is the type of cholesterol that causes fatty deposits (plaques)to build up in the blood vessels that carry blood away from the heart (arteries). Low levels of HDL cholesterol. HDL cholesterol is the type of cholesterol that protects against heart disease. High levels of HDL remove the LDL buildup from arteries. High levels of triglycerides. Triglycerides are a fatty substance in the blood that is linked to a buildup of plaques in the arteries. What are the causes? There are two main types of dyslipidemia: primary and secondary. Primary dyslipidemia is caused by changes (mutations) in genes that are passed down through families (inherited). These mutations cause several types of dyslipidemia. Secondary dyslipidemia may be caused by various risk factors that can lead to the disease, such as lifestyle choices and certain medical conditions. What increases the risk? You are more likely to develop this condition if you are an older man or if you are a woman who hasgone through menopause. Other risk factors include: Having a family history of dyslipidemia. Taking certain medicines, including control pills, steroids, some diuretics, and beta-blockers. Eating a diet high in saturated fat. Smoking cigarettes or excessive alcohol intake. Having certain medical conditions such as diabetes, polycystic ovary syndrome (PCOS), kidney disease, liver disease, or hypothyroidism. Not exercising regularly. Being overweight or obese with too much belly fat. What are the signs or symptoms? In most cases, dyslipidemia does not usually cause any symptoms. In severe cases, very high lipid levels can cause: Fatty bumps under the skin (xanthomas). A white or valle ring around the black center (pupil) of [...] 20 and older and is repeated every 4-6 years. This test checks: Total cholesterol. This measures the total amount of cholesterol in your blood, including LDL cholesterol, HDL cholesterol, and triglycerides. A healthy number is below 200 mg/dL (5.17 mmol/L). LDL cholesterol. The target number for LDL cholesterol is different for each person, depending on individual risk factors. A healthy number is usually below 100 mg/dL (2.59 mmol/L). Ask your health care provider what your LDL cholesterol should be. HDL cholesterol. An HDL level of 60 mg/dL (1.55 mmol/L) or higher is best because it helps to protect against heart disease. A number below 40 mg/dL (1.03 mmol/L) for men or below 50 mg/dL (1.29 mmol/L) for women increases the risk for heart disease. Triglycerides. A healthy triglyceride number is below 150 mg/dL (1.69 mmol/L). If your lipid profile is abnormal, your health care provider may do other blood tests. How is this treated? Treatment depends on the type of dyslipidemia that you have and your other risk factors for heart disease and stroke. Your health care provider will have a target range for your lipid levels based onthis information. Treatment for dyslipidemia starts with lifestyle changes, such as diet and exercise. Your health care provider may recommend that you: Get regular exercise. Make changes to your diet. Quit smoking if you smoke. Limit your alcohol intake. If diet changes and exercise do not [...] ?Limiting saturated fat, trans fat, and cholesterol. Do not drink alcohol if: ?Your health care provider tells you not to drink. ?You are , may be , or are planning to become . If you drink alcohol: ?Limit how much you have to: ?0 1 drink a day for women. ? 0 2 drinks a day for men. ?Know how much alcohol is in your drink. In the [place] one drink equals one 12 oz bottle of beer (355 mL), one 5 oz glass of wine (148 mL), or one 1 oz glass of hard liquor (44 mL). Activity Get regular exercise. Start an exercise [...] you need help quitting, ask your health careprovider. Take oaet-pjx-mrskzlp and prescription medicines only as told by your health care provider. This includes supplements. Keep all follow-up visits. This is important. Contact a health care provider if: You are having trouble sticking to your exercise or diet plan. You are struggling to quit smoking or to control your use of alcohol. Summary Dyslipidemia often involves a high level of cholesterol or triglycerides, which are types of lipids. Treatment depends on the type of dyslipidemia that you have and your other risk factors for heart disease and stroke. Treatment for dyslipidemia starts with lifestyle changes, such as diet and exercise. Your health care provider may prescribe medicine to lower lipids. This information is not intended to replace advice given to you by your health care provider. Make sure you discuss any questions you have with your health care provider. Document Revised: 12/24/2021 Document Reviewed: 12/24/2021 [employer] Patient Education 2022 [employer]. 04/14/2024 15:14:14 Flank Pain, Adult Flank Pain, Adult Flank pain is pain that is located on the side of the body between the upper abdomen and the spine.This area is called the flank. The pain may occur over a short period of time (acute), or it may belong-term or recurring (chronic). It may be mild or severe. Flank pain can be caused by many things, including: Muscle soreness or injury. Kidney infection, kidney stones, or kidney disease. Stress. A disease of the spine (vertebral disk disease). A lung infection (pneumonia). Fluid around the lungs (pulmonary edema). A skin rash caused by the chickenpox virus (shingles). Tumors that affect the back of the abdomen. Gallbladder disease. Follow these instructions at home: Drink enough fluid to keep your urine pale yellow. Rest as told by your health care provider. Take qnts-xwd-xkkryqw and prescription medicines only as told by your health care provider. Keep a journal to track what has caused your flank pain and what has made it feel better. Keep all follow-up visits. This is important. Contact a health care provider if: Your pain is not controlled with medicine. You have new symptoms. Your pain gets worse. Your symptoms last longer than 2 3 days. You have trouble urinating or you are urinating very frequently. Get help right away if: You have trouble breathing or you are short of breath. Your abdomen hurts or it is swollen or red. You have nausea or vomiting. You feel faint, or you faint. You have blood in your urine. You have flank pain and a fever. These symptoms may represent a serious problem that is an emergency. Do not wait to see if the symptoms will go away. Get medical help right away. Call your local emergency services (911 in the [place] Do not drive yourself to the hospital. Summary Flank pain is pain that is located on the side of the body between the upper abdomen and the spine. The pain may occur over a short period of time (acute), or it may be long-term or recurring (chronic). It may be mild or severe. Flank pain can be caused by many things. Contact your health care provider if your symptoms get worse or last longer than 2 3 days. This information is not intended to replace advice given to you by your health care provider. Make sure you discuss any questions you have with your health care provider. Document Revised: 12/31/2021 Document Reviewed: 12/31/2021 [employer] Patient Education 2022 [employer]. 04/14/2024 15:13:13 Vitamin D Deficiency Vitamin D Deficiency Vitamin D deficiency is when your body does not have enough vitamin D. Vitamin D is important to your body because: It helps the body maintain calcium and phosphorus levels. These are important minerals. It plays a role in bone health. It reduces inflammation. It improves the body's defense system (immune system). If vitamin D deficiency is severe, it [...] vitamin D. These diseases include Crohn's disease, long-term (chronic) pancreatitis, and cystic fibrosis. Having had a surgery in which a part of the stomach or a part of the small intestine was removed. What increases the risk? You are more likely to develop this condition if you: Are an older adult. Do not spend much time outdoors. Live in a long-term care facility. Have dark skin. Take certain medicines, such as steroid medicines or certain seizure medicines. Are overweight or obese. Have chronic kidney or liver disease. What are the signs or symptoms? In mild cases of vitamin D deficiency, there may not be any symptoms. If the condition is severe, symptoms may include: Bone pain. Muscle pain. Not being able to walk normally (abnormal gait). Broken bones caused by a minor injury. Joint pain. How is this diagnosed? This condition may be diagnosed with blood tests. Imaging tests such as X-rays may also be done to look for changes in the bone. How is this treated? Treatment may include taking supplements as told by your health care provider. Your health care provider will tell you what dose is best for you. Supplements may include: Vitamin D. Calcium. Follow these instructions at home: Eating and drinking Eat foods that contain vitamin D, such as: Dairy products, cereals, or juices that have vitamin D added to them (are fortified). Check the label. Fish, such as salmon or trout. Eggs. The vitamin D is in the yolk. Mushrooms that were treated with UV light. Beef liver. The items listed above may not be a complete list of foods and beverages you can eat and drink. Contact a dietitian for more information. General instructions Take ejzl-jcr-tfbbgxl and prescription medicines only as told by your health care provider. Take supplements only as told by your health care provider. Get regular, safe exposure to natural sunlight. Do not use a tanning bed. Maintain a healthy weight. Lose weight if needed. Keep all follow-up visits. This is important. How is this prevented? You can get vitamin D by: Eating foods that naturally contain vitamin D. Eating or drinking products that have been fortified with vitamin D, such as cereals, juices, and dairy products, including milk. Taking a vitamin D supplement or a multivitamin that contains vitamin D. Being in the [...] not have enough vitamin D. Vitamin D helps to keep your bones healthy. Vitamin D deficiency is primarily treated by taking supplements. Your health care provider will suggest what dose is best for you. You can get vitamin D by eating foods that contain vitamin D, by being in the sun, and by taking a vitamin D supplement or a multivitamin that contains vitamin D. This information is not intended to replace advice given to you by your health care provider. Make sure you discuss any questions you have with your health care provider. Document Revised: 07/26/2022 Document Reviewed: 07/26/2022 [employer] Patient Education 2022 [employer] 04/14/2024 15:13:12 Preventing Vitamin D Deficiency Preventing Vitamin D Deficiency Vitamin D deficiency is when your body does not have enough vitamin D. Vitamin D is important because it helps your body maintain calcium and phosphorus levels. It plays a mcnulty role in the health of bones and teeth, reduces inflammation, and improves the body's defense system (immune system). Our bodies make vitamin D when our skin is exposed to direct sunlight. However, for many people, this may not be enough vitamin D to meet the body's needs. How can this condition affect me? If vitamin D deficiency is severe, it can cause a condition in which a person's bones become softerthan normal. In adults, this condition is called osteomalacia. In children, this condition is called rickets. Vitamin D deficiency can also cause weak or thin bones (osteoporosis) in adults. What can increase my risk? You may be at risk for a vitamin D deficiency if you: Are . Are obese. Are an older adult. Have dark skin. Take certain medicines that affect the way vitamin D is absorbed. Have had a surgery in which a part of the stomach or a part of the small intestine was removed. Other risk factors include: Having a condition that limits your ability to absorb fat, such as Crohn's disease, long-term (chronic) pancreatitis, or cystic fibrosis. Having certain conditions that are passed from parent to child (inherited). Not having access to foods rich in vitamin D. Having limited ability to move and go outside safely. Living in areas that have fewer hours of sunlight. Spending most of your day indoors, or covering your skin all the time when you are outdoors. What actions can I take to reduce my risk of a vitamin D deficiency? Knowing the best sources of vitamin D You can meet your daily vitamin D needs from: Foods. Dietary supplements. Direct exposure to natural sunlight. formula, for infants. Knowing how much vitamin D you need General recommendations for daily vitamin D intake vary by these categories: Infants: 400 international units (IU). Children older than 1 year: 600 international units. Adults: 600 international units. and women: 600 international units. Adults older than 70 years: 800 international units. These are minimum levels of recommended amounts. Your health care provider may recommend a different amount of vitamin D intake based on your specific needs and your overall health. Getting sun exposure Get regular, safe exposure to natural sunlight. Expose your skin to direct sunlight for at least 15minutes every day. If you have dark skin, you may need to expose your skin for a longer period of time. Protect your skin from too much sun exposure. This helps to prevent skin cancer. Ask your health care provider if regular sun exposure is safe for you. Do not use a tanning bed. Eating and drinking Eat foods that naturally contain vitamin D. These include: ?Beef liver. ?Eggs. The vitamin D is in the yolk. ?Fish, such as salmon or trout. ?Mushrooms that were treated with UV light. Eat or drink products that have vitamin D added to them (are fortified). These may include: ?Cereals. ?Milk, including plant-based alternatives such as almond, soy, or oat milks. ?[place] juice. ?Margarine. When choosing foods, check the food label on the package to see: ?How much vitamin D is in the item. ?If the food is fortified with vitamin D. The items listed above may not be a complete list of foods and beverages you can eat and drink. Contact a dietitian for more information. Taking supplements and medicines If you are at risk for vitamin D deficiency, or if you have certain diseases, your health care provider may recommend that you take a vitamin D supplement. Make sure you: Talk with your health care provider before you start taking any vitamin D supplements. You may be more sensitive to the side effects of vitamin D supplements if you are on certain medicines or have certain medical conditions. Tell your health care provider about all medicines you are taking, including vitamins, herbs, eye drops, creams, and iznt-chl-sklaulf medicines. Take xumt-bbs-qnigzsa and prescription medicines only as told by your health care provider. Take supplements only as told by your health care provider. To increase absorption of your supplement, take it with a meal or snack. Summary Vitamin D plays a mcnulty role in the health of bones and teeth, reduces inflammation, and improves thebody's defense system (immune system). A vitamin D deficiency can put you at risk of developing conditions such as rickets or osteoporosis. Our bodies make vitamin D when our skin is exposed to direct sunlight. However, for many people, this may not be enough vitamin D to meet the body's needs. Some foods naturally contain vitamin D, including beef liver, egg yolk, and fish. Eat or drink products that have vitamin D added to them (are fortified). This information is not intended to replace advice given to you by your health care provider. Make sure you discuss any questions you have with your health care provider. Document Revised: 07/26/2022 Document Reviewed: 07/26/2022 [employer] Patient Education 2022 [employer]. 04/14/2024 15:13:10 Abrasion Abrasion An abrasion is a cut or a scrape on the surface of the skin. An abrasion does not go through all the layers of the skin. It is important to care for an abrasion properly to prevent infection. What are the causes? This condition is caused by rubbing your skin on something or falling on a surface, such as the ground. When your skin rubs on something, some layers of skin may rub off. What are the signs or symptoms? The main symptom of this condition is a cut or a scrape. The cut or scrape may be bleeding, or it may appear red or pink. If your abrasion was caused by a fall, there may be a bruise under your cut or scrape. How is this diagnosed? An abrasion is diagnosed with a physical exam. How is this treated? Treatment for this condition depends on how large and deep the abrasion is. In most cases: Your abrasion will be cleaned with water and mild soap. This is done to remove any dirt or debris (such as tiny bits of glass or rock) that may be stuck in your wound. An antibiotic ointment may be applied to your abrasion to help prevent infection. A bandage (dressing) may be placed on your abrasion to keep it clean. You may also need a tetanus shot. Follow these instructions at home: Medicines Take or apply bfii-pdh-mersalt and prescription medicines only as told by your health care provider. If you were prescribed an antibiotic medicine, use it as told by your health care provider. Do not stop using the antibiotic even if you start to feel better. Wound care Clean your wound 1 or 2 times a day, or as told by your health care provider. To do this: 1.Wash your hands for at least 20 seconds with mild soap and water. Do this before and after you clean your wound. 2.Wash your wound with mild soap and water and then rinse off the soap. 3.Pat your wound dry with a clean towel. Do not rub your wound. Keep your dressing clean and dry as told by your health care provider. There are many different ways to close and cover a wound. Follow instructions from your health careprovider about caring for your wound and about changing and removing your dressing. You may have tochange your dressing one or more times a day, or as directed by your health care provider. Check your wound every day for signs of infection. Check for: ?Redness, especially a red streak that spreads out from your wound. ?Swelling or increased pain. ?Warmth. ?Blood, fluid, pus, or a bad smell. Managing pain and swelling If directed, put ice on the injured area. To do this: ?Put ice in a plastic bag. ?Place a towel between your skin and the bag. ? Leave the ice on for 20 minutes, 2 3 times a day. ?Remove the ice if your skin turns bright red. This is very important. If you cannot feel pain, heat, or cold, you have a greater risk of damage to the area. If possible, raise (elevate) the injured area above the level of your heart while you are sitting or lying down. General instructions Do not take baths, swim, or use a hot tub until your health care provider approves. Ask your doctorabout taking showers or sponge baths. Keep all follow-up visits. This is important. Contact a health care provider if: You received a tetanus shot, and you have swelling, severe pain, redness, or bleeding at your injection site. Your pain is not controlled with medicine. You have a fever. You have any of these signs of infection: ?Redness, swelling, or more pain around your wound. ?Warmth coming from your wound. ?Blood, fluid, pus, or a bad smell coming from your wound. Get help right away if: You have a red streak spreading away from your wound. Summary An abrasion is a cut or a scrape on the surface of the skin. Care for your abrasion properly to prevent infection. Clean your wound with mild soap and water 1 or 2 times a day or as often as told. Follow instructions from your health care provider about taking medicines and changing your bandage (dressing). Contact your health care provider if you have a fever or if you have redness, swelling, or more pain around your wound. Contact your health care provider if you have warmth, blood, fluid, pus, or a bad smell coming fromyour wound. Get help right away if there is a red streak spreading away from your wound. This information is not intended to replace advice given to you by your health care provider. Make sure you discuss any questions you have with your health care provider. Document Revised: 01/18/2021 Document Reviewed: 01/18/2021 [employer] Patient Education 2022 [employer]. 04/14/2024 15:13:02 Cholelithiasis Cholelithiasis Cholelithiasis is a disease in which gallstones form in the gallbladder. The gallbladder is an organ that stores bile. Bile is a fluid that helps to digest fats. Gallstones begin as small crystals and can slowly grow into stones. They may cause no symptoms until they block the gallbladder duct, or cystic duct, when the gallbladder tightens (contracts) after food is eaten. This can cause pain and is known as a gallbladder attack, or biliary colic. There are two main types of gallstones: Cholesterol stones. These are the most common type of gallstone. These stones are made of hardened cholesterol and are usually yellow-green in color. Cholesterol is a fat-like substance that is made in the liver. Pigment stones. These are dark in color and are made of a red-yellow substance, called bilirubin,that forms when hemoglobin from red blood cells breaks down. What are the causes? This condition may be caused by an imbalance in the different parts that make bile. This can happenif the bile: Has too much bilirubin. This can happen in certain blood diseases, such as sickle cell anemia. Has too much cholesterol. Does not have enough bile salts. These salts help the body absorb and digest fats. In some cases, this condition can also be caused by the gallbladder not emptying completely or often enough. This is common during . What increases the risk? The following factors may make you more likely to develop this condition: Being female. Having multiple pregnancies. Health care providers sometimes advise removing diseased gallbladders before future pregnancies. Eating a diet that is heavy in fried foods, fat, and refined carbohydrates, such as white bread andwhite rice. Being obese. Being older than age 40. Using medicines that contain female hormones (estrogen) for a long time. Losing weight quickly. Having a family history of gallstones. Having certain medical problems, such as: ?Diabetes mellitus. ?Cystic fibrosis. ?Crohn's disease. ?Cirrhosis or other long-term (chronic) liver disease. ?Certain blood diseases, such as sickle cell anemia or leukemia. What are the signs or symptoms? In many cases, having gallstones causes no symptoms. When you have gallstones but do not have symptoms, you have silent gallstones. If a gallstone blocks your bile duct, it can cause a gallbladder attack. The main symptom of a gallbladder attack is sudden pain in the upper right part of the abdomen. The pain: Usually comes at night or after eating. Can last for one hour or more. Can spread to your right shoulder, back, or chest. Can feel like indigestion. This is discomfort, burning, or fullness in your upper abdomen. If the bile duct is blocked for more than a few hours, it can cause an infection or inflammation ofyour gallbladder (cholecystitis), liver, or pancreas. This can cause: Nausea or vomiting. Bloating. Pain in your abdomen that lasts for 5 hours or longer. Tenderness in your upper abdomen, often in the upper right section and under your rib cage. Fever or chills. Skin or the white parts of your eyes turning yellow (jaundice). This usually happens when a stone has blocked bile from passing through the common bile duct. Dark urine or light-colored stools. How is this diagnosed? This condition may be diagnosed based on: A physical exam. Your medical history. Ultrasound. CT scan. MRI. You may also have other tests, including: Blood tests to check for signs of an infection or inflammation. Cholescintigraphy, or HIDA scan. This is a scan of your gallbladder and bile ducts (biliary system)using non-harmful radioactive material and special cameras that can see the radioactive material. Endoscopic retrograde cholangiopancreatogram. This involves inserting a small tube with a camera onthe end (endoscope) through your mouth to look at bile ducts and check for blockages. How is this treated? Treatment for this condition depends on the severity of the condition. Silent gallstones do not need treatment. Treatment may be needed if a blockage causes a gallbladder attack or other symptoms. Treatment may include: Home care, if symptoms are not severe. ?During a simple gallbladder attack, stop eating and drinking for 12 24 hours (except for water andclear liquids). This helps to cool down your gallbladder. After 1 or 2 days, you can start to eata diet of simple or clear foods, such as broths and crackers. ?You may also need medicines for pain or nausea or both. ?If you have cholecystitis and an infection, you will need antibiotics. A hospital stay, if needed for pain control or for cholecystitis with severe infection. Cholecystectomy, or surgery to remove your gallbladder. This is the most common treatment if all other treatments have not worked. Medicines to break up gallstones. These are most effective at treating small gallstones. Medicines may be used for up to 6 12 months. Endoscopic retrograde cholangiopancreatogram. A small basket can be attached to the endoscope and used to capture and remove gallstones, mainly those that are in the common bile duct. Follow these instructions at home: Medicines Take ivdd-qgb-fcqiqbs and prescription medicines only as told by your health care provider. If you were prescribed an antibiotic medicine, take it as told by your health care provider. Do notstop taking the antibiotic even if you start to feel better. Ask your health care provider if the medicine prescribed to you requires you to avoid driving or using machinery. Eating and drinking Drink enough fluid to keep your urine pale yellow. This is important during a gallbladder attack. Water and clear liquids are preferred. Follow a healthy diet. This includes: ?Reducing fatty foods, such as fried food and foods high in cholesterol. ?Reducing refined carbohydrates, such as white bread and white rice. ?Eating more fiber. Aim for foods such as almonds, fruit, and beans. Alcohol use If you drink alcohol: ?Limit how much you use to: ?0 1 drink a day for non women. ?0 2 drinks a day for men. ?Be aware of how much alcohol is in your drink. In the [place] one drink equals one 12 oz bottle of beer (355 mL), one 5 oz glass of wine (148 mL), or one 1 oz glass of hard liquor (44 mL). General instructions Do not use any products that contain nicotine or tobacco, such as cigarettes, e- cigarettes, and chewing tobacco. If you need help quitting, ask your health care provider. Maintain a healthy weight. Keep all follow-up visits as told by your health care provider. These may include consultations with a surgeon or specialist. This is important. Where to find more information National [place] of Diabetes and Digestive and Kidney Diseases: www.niddk.nih.gov Contact a health care provider if: You think you have had a gallbladder attack. You have been diagnosed with silent gallstones and you develop pain in your abdomen or indigestion. You begin to have attacks more often. You have dark urine or light-colored stools. Get help right away if: You have pain from a gallbladder attack that lasts for more than 2 hours. You have pain in your abdomen that lasts for more than 5 hours or is getting worse. You have a fever or chills. You have nausea and vomiting that do not go away. You develop jaundice. Summary Cholelithiasis is a disease in which gallstones form in the gallbladder. This condition may be caused by an imbalance in the different parts that make bile. This can happenif your bile has too much bilirubin or cholesterol, or does not have enough bile salts. Treatment for gallstones depends on the severity of the condition. Silent gallstones do not need treatment. If gallstones cause a gallbladder attack or other symptoms, treatment usually involves not eating or drinking anything. Treatment may also include pain medicines and antibiotics, and it sometimes includes a hospital stay. Surgery to remove the gallbladder is common if all other treatments have not worked. This information is not intended to replace advice given to you by your health care provider. Make sure you discuss any questions you have with your health care provider. Document Revised: 09/11/2020 Document Reviewed: 09/11/2020 [employer] Patient Education 2022 [employer]. 04/14/2024 14:44:26 Hypertension, Adult Hypertension, Adult High blood pressure (hypertension) is when the force of blood pumping through the arteries is too strong. The arteries are the blood vessels that carry blood from the heart throughout the body. Hypertension forces the heart to work harder to pump blood and may cause arteries to become narrow or stiff. Untreated or uncontrolled hypertension can lead to a heart attack, heart failure, a stroke, kidney disease, and other problems. A blood pressure reading consists of a higher number over a lower number. Ideally, your blood pressure should be below 120/80. The first ( top ) number is called the systolic pressure. It is a measure of the pressure in your arteries as your heart beats. The second ( bottom ) number is called the diastolic pressure. It is a measure of the pressure in your arteries as the heart relaxes. What are the causes? The exact cause of this condition is not known. There are some conditions that result in high bloodpressure. What increases the risk? Certain factors may make you more likely to develop high blood pressure. Some of these risk factorsare under your control, including: Smoking. Not getting enough exercise or physical activity. Being overweight. Having too much fat, sugar, calories, or salt (sodium) in your diet. Drinking too much alcohol. Other risk factors include: Having a personal history of heart disease, diabetes, high cholesterol, or kidney disease. Stress. Having a family history of high blood pressure and high cholesterol. Having obstructive sleep apnea. Age. The risk increases with age. What are the signs or symptoms? High blood pressure may not cause symptoms. Very high blood pressure (hypertensive crisis) may cause: Headache. Fast or irregular heartbeats (palpitations). Shortness of breath. Nosebleed. Nausea and vomiting. Vision changes. Severe chest pain, dizziness, and seizures. How is this diagnosed? This condition is diagnosed by measuring your blood pressure while you are seated, with your arm resting on a flat surface, your legs uncrossed, and your feet flat on the floor. The cuff of the bloodpressure monitor will be placed directly against the skin of your upper arm at the level of your heart. Blood pressure should be measured at least twice using the same arm. Certain conditions can cause a difference in blood pressure between your right and left arms. If you have a high blood pressure reading during one visit or you have normal blood pressure with other risk factors, you may be asked to: Return on a different day to have your blood pressure checked again. Monitor your blood pressure at home for 1 week or longer. If you are diagnosed with hypertension, you may have other blood or imaging tests to help your health care provider understand your overall risk for other conditions. How is this treated? This condition is treated by making healthy lifestyle changes, such as eating healthy foods, exercising more, and reducing your alcohol intake. You may be referred for counseling on a healthy diet and physical activity. Your health care provider may prescribe medicine if lifestyle changes are not enough to get your blood pressure under control and if: Your systolic blood pressure is above 130. Your diastolic blood pressure is above 80. Your personal target blood pressure may vary depending on your medical conditions, your age, and other factors. Follow these instructions at home: Eating and drinking Eat a diet that is high in fiber and potassium, and low in sodium, added sugar, and fat. An exampleof this eating plan is called the DASH diet. DASH stands for Dietary Approaches to Stop Hypertension. To eat this way: ?Eat plenty of fresh fruits and vegetables. Try to fill one half of your plate at each meal with fruits and vegetables. ?Eat whole grains, such as whole-wheat pasta, brown rice, or whole-grain bread. Fill about one fourth of your plate with whole grains. ?Eat or drink low-fat dairy products, such as skim milk or low-fat yogurt. ?Avoid fatty cuts of meat, processed or cured meats, and poultry with skin. Fill about one fourth of your plate with lean proteins, such as fish, chicken without skin, beans, eggs, or tofu. ?Avoid pre-made and processed foods. These tend to be higher in sodium, added sugar, and fat. Reduce your daily sodium intake. Many people with hypertension should eat less than 1,500 mg of sodium a day. Do not drink alcohol if: ?Your health [...] oz glass of hard liquor (44 mL). Lifestyle Work with your health care provider to maintain a healthy body weight or to lose weight. Ask what an ideal weight is for you. Get at least 30 minutes of exercise that causes your heart to beat faster (aerobic exercise) most days of the week. Activities may include walking, swimming, or biking. Include exercise to strengthen your muscles (resistance exercise), such as Pilates or lifting weights, as part of your weekly exercise routine. Try to do these types of exercises for 30 minutes at least 3 days a week. Do not use any products that contain nicotine or tobacco. These products include cigarettes, chewing tobacco, and vaping devices, such as e-cigarettes. If you need help quitting, ask your health careprovider. Monitor your blood pressure at home as told by your health care provider. Keep all follow-up visits. This is important. Medicines Take srxq-vqx-vpighqb and prescription medicines only as told by your health care provider. Follow directions carefully. Blood pressure medicines must be taken as prescribed. Do not skip doses of blood pressure medicine. Doing this puts you at risk for problems and can makethe medicine less effective. Ask your health care provider about side effects or reactions to medicines that you should watch for. Contact a health care provider if you: Think you are having a reaction to a medicine you are taking. Have headaches that keep coming back (recurring). Feel dizzy. Have swelling in your ankles. Have trouble with your vision. Get help right away if you: Develop a severe headache or confusion. Have unusual weakness or numbness. Feel faint. Have severe pain in your chest or abdomen. Vomit repeatedly. Have trouble breathing. These symptoms may be an emergency. Get help right away. Call 911. Do not wait to see if the symptoms will go away. Do not drive yourself to the hospital. Summary Hypertension is when the force of blood pumping through your arteries is too strong. If this condition is not controlled, it may put you at risk for serious complications. Your personal target blood pressure may vary depending on your medical conditions, your age, and other factors. For most people, a normal blood pressure is less than 120/80. Hypertension is treated with lifestyle changes, medicines, or a combination of both. Lifestyle changes include losing weight, eating a healthy, low-sodium diet, exercising more, and limiting alcohol. This information is not intended to replace advice given to you by your health care provider. Make sure you discuss any questions you have with your health care provider. Document Revised: 08/27/2022 Document Reviewed: 08/27/2022 [employer] Patient Education 2022 [employer]. 04/14/2024 14:44:20 Form - Blood Pressure Record Sheet Blood Pressure Record Sheet To take your blood pressure, you will need a blood pressure machine. You may be prescribed one, or you can buy a blood pressure machine (blood pressure monitor) at your clinic, drug store, or online.When choosing one, look for these features: An automatic monitor that has an arm cuff. A cuff that wraps snugly, but not too tightly, around your upper arm. You should be able to fit only one finger between your arm and the cuff. A device that stores blood pressure reading results. Do not choose a monitor that measures your blood pressure from your wrist or finger. Follow your health care provider's instructions for how to take your blood pressure. To use this form: Get one reading in the morning (a.m.) before you take any medicines. Get one reading in the evening (p.m.) before supper. Take at least two readings with each blood pressure check. This makes sure the results are correct.Wait 1 2 minutes between measurements. Write down the results in the spaces on this form. Repeat this once a week, or as told by your health care provider. Make a follow-up appointment with your health care provider to discuss the results. Blood pressure log Date: a.m. (1st reading) (2nd reading) p.m. (1st reading) (2nd reading) Date: a.m. (1st reading) (2nd reading) p.m. (1st reading) (2nd reading) Date: a.m. (1st reading) (2nd reading) p.m. (1st reading) (2nd reading) Date: a.m. (1st reading) (2nd reading) p.m. (1st reading) (2nd reading) Date: a.m. (1st reading) (2nd reading) p.m. (1st reading) (2nd reading) This information is not intended to replace advice given to you by your health care provider. Make sure you discuss any questions you have with your health care provider. Document Revised: 07/04/2022 Document Reviewed: 07/04/2022 [employer] Patient Education 2022 [employer] 04/14/2024 14:44:14 Carbohydrate Counting for Diabetes Mellitus, Adult Carbohydrate Counting for Diabetes Mellitus, Adult Carbohydrate counting is a method of keeping track of how many carbohydrates you eat. Eating carbohydrates increases the amount of sugar (glucose) in the blood. Counting how many carbohydrates you eat improves how well you manage your blood glucose. This, in turn, helps you manage your diabetes. Carbohydrates are measured in grams (g) per serving. It is important to know how many carbohydrates(in grams or by serving size) you can have in each meal. This is different for every person. A dietitian can help you make a meal plan and calculate how many carbohydrates you should have at each meal and snack. What foods contain carbohydrates? Carbohydrates are found in the following foods: Grains, such as breads and cereals. Dried beans and soy products. Starchy vegetables, such as potatoes, peas, and corn. Fruit and fruit juices. Milk and yogurt. Sweets and snack foods, such as cake, cookies, candy, chips, and soft drinks. How do I count carbohydrates in foods? There are two ways to count carbohydrates in food. You can read food labels or learn standard serving sizes of foods. You can use either of these methods or a combination of both. Using the Nutrition Facts label The Nutrition Facts list is included on the labels of almost all packaged foods and beverages in the [place]. It includes: The serving size. Information about nutrients in each serving, including the grams of carbohydrate per serving. To use the Nutrition Facts, decide how many servings you will have. Then, multiply the number of servings by the number of carbohydrates per serving. The resulting number is the total grams of carbohydrates that you will be having. Learning the standard serving sizes of foods When you eat carbohydrate foods that are not packaged or do not include Nutrition Facts on the label, you need to measure the servings in order to count the grams of carbohydrates. Measure the foods that you will eat with a food scale or measuring cup, if needed. Decide how many standard-size servings you will eat. Multiply the number of servings by 15. For foods that contain carbohydrates, one serving equals 15 g of carbohydrates. ?For example, if you eat 2 cups or 10 oz (300 g) of strawberries, you will have eaten 2 servings and 30 g of carbohydrates (2 servings x 15 g = 30 g). For foods that have more than one food mixed, such as soups and casseroles, you must count the carbohydrates in each food that is included. The following list contains standard serving sizes of common carbohydrate-rich foods. Each of theseservings has about 15 g of carbohydrates: 1 slice of bread. 1 six-inch (15 cm) tortilla. ? cup or 2 oz (53 g) cooked rice or pasta. cup or 3 oz (85 g) cooked or canned, drained and rinsed beans or lentils. cup or 3 oz (85 g) starchy vegetable, such as peas, corn, or squash. cup or 4 oz (120 g) hot cereal. cup or 3 oz (85 g) boiled or mashed potatoes, or or 3 oz (85 g) of a large baked potato. cup or 4 fl oz (118 mL) fruit juice. 1 cup or 8 fl oz (237 mL) milk. 1 small or 4 oz (106 g) apple. or 2 oz (63 g) of a medium banana. 1 cup or 5 oz (150 g) strawberries. 3 cups or 1 oz (28.3 g) popped popcorn. What is an example of carbohydrate counting? To calculate the grams of carbohydrates in this sample meal, follow the steps shown below. Sample meal 3 oz (85 g) chicken breast. ? cup or 4 oz (106 g) brown rice. cup or 3 oz (85 g) corn. 1 cup or 8 fl oz (237 mL) milk. 1 cup or 5 oz (150 g) strawberries with sugar-free whipped topping. Carbohydrate calculation 1.Identify the foods that contain carbohydrates: Rice. [place]. Milk. Strawberries. 2.Calculate how many servings you have of each food: 2 servings rice. 1 serving corn. 1 serving milk. 1 serving strawberries. 3.Multiply each number of servings by 15 servings rice x 15 g = 30 g. 1 serving corn x 15 g = 15 g. 1 serving milk x 15 g = 15 g. 1 serving strawberries x 15 g = 15 g. 4.Add together all of the amounts to find the total grams of carbohydrates eaten: 30 g + 15 g + 15 g + 15 g = 75 g of carbohydrates total. What are tips for following this plan? Shopping Develop a meal plan and then make a shopping list. Buy fresh and frozen vegetables, fresh and frozen fruit, dairy, eggs, beans, lentils, and whole grains. Look at food labels. Choose foods that have more fiber and less sugar. Avoid processed foods and foods with added sugars. Meal planning Aim to have the same number of grams of carbohydrates at each meal and for each snack time. Plan to have regular, balanced meals and snacks. Where to find more information [place] [employer]: diabetes.org Centers for Disease Control and Prevention: cdc.gov Academy of Nutrition and Dietetics: eatright.org Association of Diabetes Care & Education Specialists: diabeteseducator.org Summary Carbohydrate counting is a method of keeping track of how many carbohydrates you eat. Eating carbohydrates increases the amount of sugar (glucose) in your blood. Counting how many carbohydrates you eat improves how well you manage your blood glucose. This helpsyou manage your diabetes. A dietitian can help you make a meal plan and calculate how many carbohydrates you should have at each meal and snack. This information is not intended to replace advice given to you by your health care provider. Make sure you discuss any questions you have with your health care provider. Document Revised: 05/23/2021 Document Reviewed: 05/23/2021 [employer] Patient Education 2022 [employer]. 04/14/2024 14:44:11 Calorie Counting for Weight Loss Calorie Counting for Weight Loss Calories are units of energy. Your body needs a certain number of calories from food to keep going throughout the day. When you eat or drink more calories than your body needs, your body stores the extra calories mostly as fat. When you eat or drink fewer calories than your body needs, your body niño fat to get the energy it needs. Calorie counting means keeping track of how many calories you eat and drink each day. Calorie counting can be helpful if you need to lose weight. If you eat fewer calories than your body needs, you should lose weight. Ask your health care provider what a healthy weight is for you. For calorie counting to work, you will need to eat the right number of calories each day to lose a healthy amount of weight per week. A dietitian can help you figure out how many calories you need brady day and will suggest ways to reach your calorie goal. A healthy amount of weight to lose each week is usually 1 2 lb (0.5 0.9 kg). This usually means that your daily calorie intake should be reduced by 500 750 calories. Eating 1,200 1,500 calories a day can help most women lose weight. Eating 1,500 1,800 calories a day can help most men lose weight. What do I need to know about calorie counting? Work with your health care provider or dietitian to determine how many calories you should get eachday. To meet your daily calorie goal, you will need to: Find out how many calories are in each food that you would like to eat. Try to do this before you eat. Decide how much of the food you plan to eat. Keep a food log. Do this by writing down what you ate and how many calories it had. To successfully lose weight, it is important to balance calorie counting with a healthy lifestyle that includes regular activity. Where do I find calorie information? The number of calories in a food can be found on a Nutrition Facts label. If a food does not have aNutrition Facts label, try to look up the calories online or ask your dietitian for help. Remember that calories are listed per serving. If you choose to have more than one serving of a food, you will have to multiply the calories per serving by the number of servings you plan to eat. Forexample, the label on a package of bread might say that a serving size is 1 slice and that there are 90 calories in a serving. If you eat 1 slice, you will have eaten 90 calories. If you eat 2 slices, you will have eaten 180 calories. How do I keep a food log? After each time that you eat, record the following in your food log as soon as possible: What you ate. Be sure to include toppings, sauces, and other extras on the food. How much you ate. This can be measured in cups, ounces, or number of items. How many calories were in each food and drink. The total number of calories in the food you ate. Keep your food log near you, such as in a pocket-sized notebook or on an lisa or website on your mobile phone. Some programs will calculate calories for you and show you how many calories you have left to meet your daily goal. What are some portion-control tips? Know how many calories are in a serving. This will help you know how many servings you can have of a certain food. Use a measuring cup to measure serving sizes. You could also try weighing out portions on a kitchenscale. With time, you will be able to estimate serving sizes for some foods. Take time to put servings of different foods on your favorite plates or in your favorite bowls and cups so you know what a serving looks like. Try not to eat straight from a food's packaging, such as from a bag or box. Eating straight from the package makes it hard to see how much you are eating and can lead to overeating. Put the amount you would like to eat in a cup or on a plate to make sure you are eating the right portion. Use smaller plates, glasses, and bowls for smaller portions and to prevent overeating. Try not to multitask. For example, avoid watching TV or using your computer while eating. If it is time to eat, sit down at a table and enjoy your food. This will help you recognize when you are full. It will also help you be more mindful of what and how much you are eating. What are tips for following this plan? Reading food labels Check the calorie count compared with the serving size. The serving size may be smaller than what you are used to eating. Check the source of the calories. Try to choose foods that are high in protein, fiber, and vitamins, and low in saturated fat, trans fat, and sodium. Shopping Read nutrition labels while you shop. This will help you make healthy decisions about which foods to buy. Pay attention to nutrition labels for low-fat or fat-free foods. These foods sometimes have the same number of calories or more calories than the full-fat versions. They also often have added sugar, starch, or salt to make up for flavor that was removed with the fat. Make a grocery list of lower-calorie foods and stick to it. Cooking Try to cook your favorite foods in a healthier way. For example, try baking instead of frying. Use low-fat dairy products. Meal planning Use more fruits and vegetables. One-half of your plate should be fruits and vegetables. Include lean proteins, such as chicken, turkey, and fish. Lifestyle Each week, aim to do one of the followin minutes of moderate exercise, such as walking. 75 minutes of vigorous exercise, such as running. General information Know how many calories are in the foods you eat most often. This will help you calculate calorie counts faster. Find a way of tracking calories that works for you. Get creative. Try different apps or programs ifwriting down calories does not work for you. What foods should I eat? Eat nutritious foods. It is better to have a nutritious, high-calorie food, such as an avocado, than a food with few nutrients, such as a bag of potato chips. Use your calories on foods and drinks that will fill you up and will not leave you hungry soon after eating. ?Examples of foods that fill you up are nuts and nut butters, vegetables, lean proteins, and high-fiber foods such as whole grains. High-fiber foods are foods with more than 5 g of fiber per serving. Pay attention to calories in drinks. Low-calorie drinks include water and unsweetened drinks. The items listed above may not be a complete list of foods and beverages you can eat. Contact a dietitian for more information. What foods should I limit? Limit foods or drinks that are not good sources of vitamins, minerals, or protein or that are high in unhealthy fats. These include: Candy. Other sweets. Sodas, specialty coffee drinks, alcohol, and juice. The items listed above may not be a complete list of foods and beverages you should avoid. Contact a dietitian for more information. How do I count calories when eating out? Pay attention to portions. Often, portions are much larger when eating out. Try these tips to keep portions smaller: ?Consider sharing a meal instead of getting your own. ?If you get your own meal, eat only half of it. Before you start eating, ask for a container and put half of your meal into it. ?When available, consider ordering smaller portions from the menu instead of full portions. Pay attention to your food and drink choices. Knowing the way food is cooked and what is included with the meal can help you eat fewer calories. ?If calories are listed on the menu, choose the lower-calorie options. ?Choose dishes that include vegetables, fruits, whole grains, low-fat dairy products, and lean proteins. ?Choose items that are boiled, broiled, grilled, or steamed. Avoid items that are buttered, battered, fried, or served with cream sauce. Items labeled as crispy are usually fried, unless stated otherwise. ?Choose water, low-fat milk, unsweetened iced tea, or other drinks without added sugar. If you wantan alcoholic beverage, choose a lower-calorie option, such as a glass of wine or light beer. ?Ask for dressings, sauces, and syrups on the side. These are usually high in calories, so you should limit the amount you eat. ?If you want a salad, choose a garden salad and ask for grilled meats. Avoid extra toppings such asbacon, cheese, or fried items. Ask for the dressing on the side, or ask for olive oil and vinegar or lemon to use as dressing. Estimate how many servings of a food you are given. Knowing serving sizes will help you be aware ofhow much food you are eating at restaurants. Where to find more information Centers for Disease Control and Prevention: www.cdc.gov U.S. Department of Agriculture: myplate.gov Summary Calorie counting means keeping track of how many calories you eat and drink each day. If you eat fewer calories than your body needs, you should lose weight. A healthy amount of weight to lose per week is usually 1 2 lb (0.5 0.9 kg). This usually means reducing your daily calorie intake by 500 750 calories. The number of calories in a food can be found on a Nutrition Facts label. If a food does not have aNutrition Facts label, try to look up the calories online or ask your dietitian for help. Use smaller plates, glasses, and bowls for smaller portions and to prevent overeating. Use your calories on foods and drinks that will fill you up and not leave you hungry shortly after a meal. This information is not intended to replace advice given to you by your health care provider. Make sure you discuss any questions you have with your health care provider. Document Revised: 11/30/2020 Document Reviewed: 11/30/2020 [employer] Patient Education 2022 [employer]. 04/14/2024 14:44:05 Mediterranean Diet Mediterranean Diet A Mediterranean diet refers to food and lifestyle choices that are based on the traditions of countries located on the [place] Sea. It focuses on eating more fruits, vegetables, whole grains, beans, nuts, seeds, and heart-healthy fats, and eating less dairy, meat, eggs, and processed foods with added sugar, salt, and fat. This way of eating has been shown to help prevent certain conditions and improve outcomes for people who have chronic diseases, like kidney disease and heart disease. What are tips for following this plan? Reading food labels Check the serving size of packaged foods. For foods such as rice and pasta, the serving size refersto the amount of cooked product, not dry. Check the total fat in packaged foods. Avoid foods that have saturated fat or trans fats. Check the ingredient list for added sugars, such as corn syrup. Shopping Buy a variety of foods that offer a balanced diet, including: ?Fresh fruits and vegetables (produce). ?Grains, beans, nuts, and seeds. Some of these may be available in unpackaged forms or large amounts (in bulk). ?Fresh seafood. ?Poultry and eggs. ?Low-fat dairy products. Buy whole ingredients instead of prepackaged foods. Buy fresh fruits and vegetables in-season from local farmers markets. Buy plain frozen fruits and vegetables. If you do not have access to quality fresh seafood, buy precooked frozen shrimp or canned fish, such as tuna, salmon, or sardines. Stock your pantry so you always have certain foods on hand, such as olive oil, canned tuna, canned tomatoes, rice, pasta, and beans. Cooking Cook foods with extra-virgin olive oil instead of using butter or other vegetable oils. Have meat as a side dish, and have vegetables or grains as your main dish. This means having meat in small portions or adding small amounts of meat to foods like pasta or stew. Use beans or vegetables instead of meat in common dishes like chili or lasagna. [place] with different cooking methods. Try roasting, broiling, steaming, and saut ing vegetables. Add frozen vegetables to soups, stews, pasta, or rice. Add nuts or seeds for added healthy fats and plant protein at each meal. You can add these to yogurt, salads, or vegetable dishes. Marinate fish or vegetables using olive oil, lemon juice, garlic, and fresh herbs. Meal planning Plan to eat one vegetarian meal one day each week. Try to work up to two vegetarian meals, if possible. Eat seafood two or more times a week. Have healthy snacks readily available, such as: ?Vegetable sticks with hummus. ?[place] yogurt. ?Fruit and nut trail mix. Eat balanced meals throughout the week. This includes: ?Fruit: 2 3 servings a day. ?Vegetables: 4 5 servings a day. ?Low-fat dairy: 2 servings a day. ?Fish, poultry, or lean meat: 1 serving a day. ?Beans and legumes: 2 or more servings a week. ?Nuts and seeds: 1 2 servings a day. ?Whole grains: 6 8 servings a day. ?Extra-virgin olive oil: 3 4 servings a day. Limit red meat and sweets to only a few servings a month. Lifestyle Cook and eat meals together with your family, when possible. Drink enough fluid to keep your urine pale yellow. Be physically active every day. This includes: ?Aerobic exercise like running or swimming. ?Leisure activities like gardening, walking, or housework. Get 7 8 hours of sleep each night. If recommended by your health care provider, drink red wine in moderation. This means 1 glass a dayfor non women and 2 glasses a day for men. A glass of wine equals 5 oz (150 mL). What foods should I eat? Fruits Apples. Apricots. Avocado. Berries. Bananas. Cherries. Dates. Figs. Grapes. Ange. Melon. Oranges.Peaches. Plums. Pomegranate. Vegetables Artichokes. Beets. Broccoli. Cabbage. Carrots. Eggplant. Green beans. Chard. Kale. Spinach. Onions.Leeks. Peas. Squash. Tomatoes. Peppers. Radishes. Grains Whole-grain pasta. Brown rice. Bulgur wheat. Polenta. Couscous. Whole-wheat bread. Oatmeal. Quinoa. Meats and other proteins Beans. Almonds. [place] seeds. [place] nuts. Peanuts. Cod. [place]. Scallops. Shrimp. Tuna. Tilapia. Clams. Oysters. Eggs. Poultry without skin. Dairy Low-fat milk. Cheese. [place] yogurt. Fats and oils Extra-virgin olive oil. Avocado oil. Grapeseed oil. Beverages Water. Red wine. Herbal tea. Sweets and desserts [place] yogurt with honey. Baked apples. Poached pears. [place] mix. Seasonings and condiments Basil. Cilantro. Coriander. Cumin. Mint. Parsley. Arsenio. Stefania. Tarragon. Garlic. Oregano. Thyme.Pepper. Balsamic vinegar. Tahini. Hummus. Tomato sauce. Olives. Mushrooms. The items listed above may not be a complete list of foods and beverages you can eat. Contact a dietitian for more information. What foods should I limit? This is a list of foods that should be eaten rarely or only on special occasions. Fruits Fruit canned in syrup. Vegetables Deep-fried potatoes (nigerian fries). Grains Prepackaged pasta or rice dishes. Prepackaged cereal with added sugar. Prepackaged snacks with added sugar. Meats and other proteins Beef. Pork. Shea. Poultry with skin. Hot dogs. Jaime. Dairy Ice cream. Sour cream. Whole milk. Fats and oils Butter. Canola oil. Vegetable oil. Beef fat (tallow). Lard. Beverages Juice. Sugar-sweetened soft drinks. Beer. Liquor and spirits. Sweets and desserts Cookies. Cakes. Pies. Candy. Seasonings and condiments Mayonnaise. Pre-made sauces and marinades. The items listed above may not be a complete list of foods and beverages you should limit. Contact a dietitian for more information. Summary The Mediterranean diet includes both food and lifestyle choices. Eat a variety of fresh fruits and vegetables, beans, nuts, seeds, and whole grains. Limit the amount of red meat and sweets that you eat. If recommended by your health care provider, drink red wine in moderation. This means 1 glass a dayfor non women and 2 glasses a day for men. A glass of wine equals 5 oz (150 mL). This information is not intended to replace advice given to you by your health care provider. Make sure you discuss any questions you have with your health care provider. Document Revised: 11/24/2020 Document Reviewed: 09/21/2020 [employer] Patient Education 2022 [employer]. Follow Up Care 03/19/2024 16:02:59 With:Beatrice Ingram FAM, MED Address: [facility] [address], [facility] [place] [address]- When:Within 3 Month(s) Comments:f/u labs, HTN, EMphysema, SOB, PFTs, gall bladder and kidney stones. [facility] 05-17-2024 Hospital Discharge instructions Patient Education 03/19/2024 16:01:37 Major Depressive Disorder, Adult Major Depressive Disorder, [...] and with everyday activities, such as work, school,and activities that are usually pleasant. MDD may be mild, moderate, or severe. It may be single-episode MDD, which happens once, or recurrent MDD, which may occur multiple times. What are the causes? The exact cause of this condition is not known. MDD is most likely caused by a combination of things, which may include: Your personality traits. [place] or conditioned behaviors or thoughts or feelings [...] medicines help to balance the brain chemicals thataffect your emotions. Lifestyle changes. You may be [...] your health care provider. General instructions Take qxtb-pkz-gxirfzc and prescription medicines only as told by your health care provider. Eat a healthy diet and get plenty of sleep. Consider joining a support group. Your health care provider may be able to recommend one. Keep all follow-up visits as told by your health care provider. This is important. Where to find more information National [place] on Mental Illness: www.anthony.org U.S. National [place] of Mental Health: www.nimh.nih.gov Contact a health care provider if: Your symptoms get worse. You develop new symptoms. Get help right away if: You self-harm. You have serious thoughts about hurting yourself or others. You hallucinate. If you ever feel like you may hurt yourself or others, or have thoughts about taking your own life,get help right away. Go to your nearest emergency department or: Call your local emergency services (635 in the [place] Call a suicide crisis helpline, such as the National Suicide Prevention Lifeline at or 521 in the [place] This is open 24 hours a day in the [place] Text the Crisis Text Line at 931243 (in the [place] Summary Major depressive disorder [...] You may need more than one type oftreatment. Get help right away if you have serious thoughts about hurting yourself or others. This information is not intended to replace advice given to you by your health care provider. Make sure you discuss any questions you have with your health care provider. Document Revised: 05/15/2022 Document Reviewed: 09/30/2020 [employer] Patient Education 2022 [employer]. 03/19/2024 16:01:34 BMI for Adults BMI for Adults What is BMI? Body mass index (BMI) is a number that is calculated from a person's weight and height. BMI can help estimate how much of a person's weight is composed of fat. BMI does not measure body fat directly.Rather, it is an alternative to procedures that [...] your height. Both height and weight are measured,and the BMI is calculated from those numbers. This can be done either in [place] ([place] or metric measurements. Note that charts and online BMI calculators are available to help you find your BMI quickly and easily without having to do these calculations yourself. To calculate your BMI in [place] ([place] measurements: 1.Measure your weight in pounds [...] inches squared measurement is 70 inches x 70inches, which equals 4,900 inches squared. 4.Divide the [...] muscular build, such as an athlete, may havea BMI that is higher than 24.9. In cases like these, BMI is not an accurate measure of body fat. To determine if excess body fat is the cause of a BMI of 25 or higher, further assessments may needto be done by a health care provider. BMI is usually interpreted in the same way for men and women. Where to find more information For more information about BMI, including tools to quickly calculate your BMI, go to these websites: Centers for Disease Control and Prevention: www.cdc.gov [place] Heart Association: www.heart.org National Heart, Lung, and Blood [place]: www.nhlbi.nih.gov Summary Body mass index (BMI) is a number that is calculated from a person's weight and height. BMI may help estimate how much of a person's weight is composed of fat. BMI can help identify thosewho may be at higher risk for certain medical problems. BMI can be measured using [place] measurements or metric measurements. BMI charts are used to identify whether you are underweight, normal weight, overweight, or obese. This information is not intended to replace advice given to you by your health care provider. Make sure you discuss any questions you have with your health care provider. Document Revised: 07/12/2020 Document Reviewed: 05/19/2020 [employer] Patient Education 2022 [employer]. 03/19/2024 16:01:30 Heart Disease Prevention Heart Disease Prevention Heart disease is the leading cause of in the world. Coronary artery disease is the most common cause of heart disease. This condition results when cholesterol and other substances (plaque) build up inside the rosa of the blood vessels that supply your heart muscle (arteries). This buildup inarteries is called atherosclerosis. You can take actions [...] much sodium is safe for you. Most peopleshould have less than 2,300 mg each day. [...] of hard liquor (44 mL). Medicines Take owhq-kjp-stykdfb and prescription medicines only as told by [...] should be no higher than 120, and thelower number (diastolic) no higher than 80. Treatment [...] Centers for Disease Control and Prevention: www.cdc.gov/heartdisease [place] Heart Association: www.heart.org Summary Heart disease is [...] provider. Document Revised: 06/19/2022 Document Reviewed: 06/19/2022 [employer] Patient Education 2022 [employer]. 03/19/2024 16:01:30 Familial Hypercholesterolemia Familial Hypercholesterolemia Familial hypercholesterolemia (FH) is a genetic disorder that causes a very high level of LDL (low-density lipoprotein) cholesterol. Cholesterol is a waxy, fat- like substance that the body needs to build cells. The body makes all the cholesterol it needs in the liver and removes extra or excess cholesterol from the blood as needed. Excess cholesterol comes from food that a person eats. In people who have FH, the body is not able to remove LDL cholesterol from the blood as it should. A high level of LDL cholesterol puts a person at higher risk for narrowing and hardening of the arteries (atherosclerosis) at an early age. This raises the risk for heart disease and stroke. What are the causes? FH is passed from parent to child (inherited). FH is caused by an inherited gene defect (genetic mutation) that makes it hard for the liver to remove LDL cholesterol from the blood. The gene may be inherited from one parent or both parents. What increases the risk? You may be at higher risk for FH if you have a family history of the condition. If both parents carry the genetic mutation, their children are at higher risk for a more severe form of FH, with symptoms that start at an earlier age. What are the signs or symptoms? You may have a high level of LDL cholesterol before you develop symptoms. Symptoms of FH may include: Cholesterol nodules (xanthomas) on the tendons. Tendons are cords of tissue that connect muscles tobones. Xanthomas often form on the long tendon at the back of the ankle (Achilles tendon) or on thetendons on the back of the hands. Cholesterol deposits (xanthelasmas) under the skin of the eyelids. A valle or blue ring around the white part of the eye. Complications of FH can occur due to atherosclerosis. Atherosclerosis may cause damage to an area of the body by reducing blood flow. Complications of FH may include: Chest pain (angina) and shortness of breath due to narrowed or blocked arteries in the heart (coronary artery disease). Pain and cramping in the back of the lower legs (calves) when walking. Interruption in blood flow to the brain (stroke). This may cause: ?Loss of balance. ?Vision loss. ?Sudden weakness or numbness on one side of the body. How is this diagnosed? This condition may be diagnosed based on: Your symptoms. Your medical history, including any family history of FH or early coronary heart disease. A physical exam. A blood test to check for the genetic mutation that causes FH. Your family members may also be tested. How is this treated? There is no cure for FH, but treatment can lower LDL cholesterol levels and lower your risk for heart attack or stroke. Treatment should be started as soon as you are diagnosed. Treatment may include: Making lifestyle changes that are healthy for your heart, such as lowering the amount of fat and cholesterol in your diet. Medicines. ?You may be prescribed a statin medicine to help lower your cholesterol levels. ?If statins do not help, your health care provider may try other kinds of cholesterol-lowering medicines. The exact combination of medicines depends on the severity of your symptoms. ?In some cases, treatment with medicines known as monoclonal antibodies that are injected under theskin every few weeks may be used. A procedure called apheresis, which filters LDL from your blood. You may need this treatment if youhave a severe form of FH. Follow these instructions at home: Lifestyle Lose weight, if directed by your health care provider. Follow instructions from your health care provider about eating a healthy diet. Your health care provider may recommend: ?Working with a diet and claims specialist (dietitian), who can help you make a healthy eating plan and help you maintain a healthy weight. ?Eating less fat and cholesterol. Avoid fatty meats, fried foods, and whole-fat dairy. ?Eating more vegetables, fruits, and whole grains. ?Limiting your intake of alcohol. Be physically active. Ask your health care provider what type of exercise is best for you. Do not use any products that contain nicotine or tobacco. These products include cigarettes, chewing tobacco, and vaping devices, such as e-cigarettes. If you need help quitting, ask your health careprovider. Work with your health care provider to manage any other conditions you have, such as high blood pressure (hypertension) or diabetes. These conditions affect your heart. General instructions Take tvxe-zuo-dscbynw and prescription medicines only as told by your health care provider. Keep all follow-up visits. This is important. Contact a health care provider if: You have pain or cramps in your calf when you walk. Get help right away if: You have sudden, unexplained discomfort in your chest, arms, back, neck, jaw, or upper body. You have trouble breathing. You have any symptoms of a stroke. BE FAST is an easy way to remember the main warning signs of astroke: ?B - Balance. Signs are dizziness, sudden trouble walking, or loss of balance. ?E - Eyes. Signs are trouble seeing or a sudden change in vision. ?F - Face. Signs are sudden weakness or numbness of the face, or the face or eyelid drooping on oneside. ?A - Arms. Signs are weakness or numbness in an arm. This happens suddenly and usually on one side of the body. ?S - Speech. Signs are sudden trouble speaking, slurred speech, or trouble understanding what people say. ?T - Time. Time to call emergency services. Write down what time symptoms started. You have other signs of a stroke, such as: ?A sudden, severe headache with no known cause. ?Nausea or vomiting. ?Seizure. These symptoms may represent a serious problem that is an emergency. Do not wait to see if the symptoms will go away. Get medical help right away. Call your local emergency services (911 in the [place] Do not drive yourself to the hospital. Summary Familial hypercholesterolemia (FH) is a genetic disorder that causes a very high level of LDL (low-density lipoprotein) cholesterol. FH increases your risk for coronary heart disease and stroke at an early age. Treatment for FH should be started as soon as you are diagnosed with the condition. Treatment is aimed at lowering your risk for complications. Follow instructions from your health care provider about eating a healthy diet. Your health care provider may recommend eating less fat and cholesterol. This information is not intended to replace advice given to you by your health care provider. Make sure you discuss any questions you have with your health care provider. Document Revised: 12/24/2021 Document Reviewed: 12/24/2021 [employer] Patient Education 2022 [employer]. 03/19/2024 16:01:29 Dyslipidemia Dyslipidemia Dyslipidemia is an imbalance of waxy, fat-like substances (lipids) in the blood. The body needs lipids in small amounts. Dyslipidemia often involves a high level of cholesterol or triglycerides, which are types of lipids. Common forms of dyslipidemia include: High levels of LDL cholesterol. LDL is the type of cholesterol that causes fatty deposits (plaques)to build up in the blood vessels that carry blood away from the heart (arteries). Low levels of HDL cholesterol. HDL cholesterol is the type of cholesterol that protects against heart disease. High levels of HDL remove the LDL buildup from arteries. High levels of triglycerides. Triglycerides are a fatty substance in the blood that is linked to a buildup of plaques in the arteries. What are the causes? There are two main types of dyslipidemia: primary and secondary. Primary dyslipidemia is caused by changes (mutations) in genes that are passed down through families (inherited). These mutations cause several types of dyslipidemia. Secondary dyslipidemia may be caused by various risk factors that can lead to the disease, such as lifestyle choices and certain medical conditions. What increases the risk? You are more likely to develop this condition if you are an older man or if you are a woman who hasgone through menopause. Other risk factors include: Having a family history of dyslipidemia. Taking certain medicines, including control pills, steroids, some diuretics, and beta-blockers. Eating a diet high in saturated fat. Smoking cigarettes or excessive alcohol intake. Having certain medical conditions such as diabetes, polycystic ovary syndrome (PCOS), kidney disease, liver disease, or hypothyroidism. Not exercising regularly. Being overweight or obese with too much belly fat. What are the signs or symptoms? In most cases, dyslipidemia does not usually cause any symptoms. In severe cases, very high lipid levels can cause: Fatty bumps under the skin (xanthomas). A white or valle ring around the black center (pupil) of [...] 20 and older and is repeated every 4-6 years. This test checks: Total cholesterol. This measures the total amount of cholesterol in your blood, including LDL cholesterol, HDL cholesterol, and triglycerides. A healthy number is below 200 mg/dL (5.17 mmol/L). LDL cholesterol. The target number for LDL cholesterol is different for each person, depending on individual risk factors. A healthy number is usually below 100 mg/dL (2.59 mmol/L). Ask your health care provider what your LDL cholesterol should be. HDL cholesterol. An HDL level of 60 mg/dL (1.55 mmol/L) or higher is best because it helps to protect against heart disease. A number below 40 mg/dL (1.03 mmol/L) for men or below 50 mg/dL (1.29 mmol/L) for women increases the risk for heart disease. Triglycerides. A healthy triglyceride number is below 150 mg/dL (1.69 mmol/L). If your lipid profile is abnormal, your health care provider may do other blood tests. How is this treated? Treatment depends on the type of dyslipidemia that you have and your other risk factors for heart disease and stroke. Your health care provider will have a target range for your lipid levels based onthis information. Treatment for dyslipidemia starts with lifestyle changes, such as diet and exercise. Your health care provider may recommend that you: Get regular exercise. Make changes to your diet. Quit smoking if you smoke. Limit your alcohol intake. If diet changes and exercise do not [...] ?Limiting saturated fat, trans fat, and cholesterol. Do not drink alcohol if: ?Your health care provider tells you not to drink. ?You are , may be , or are planning to become . If you drink alcohol: ?Limit how much you have to: ?0 1 drink a day for women. ? 0 2 drinks a day for men. ?Know how much alcohol is in your drink. In the [place] one drink equals one 12 oz bottle of beer (355 mL), one 5 oz glass of wine (148 mL), or one 1 oz glass of hard liquor (44 mL). Activity Get regular exercise. Start an exercise [...] you need help quitting, ask your health careprovider. Take xrge-hrk-duxbnko and prescription medicines only as told by your health care provider. This includes supplements. Keep all follow-up visits. This is important. Contact a health care provider if: You are having trouble sticking to your exercise or diet plan. You are struggling to quit smoking or to control your use of alcohol. Summary Dyslipidemia often involves a high level of cholesterol or triglycerides, which are types of lipids. Treatment depends on the type of dyslipidemia that you have and your other risk factors for heart disease and stroke. Treatment for dyslipidemia starts with lifestyle changes, such as diet and exercise. Your health care provider may prescribe medicine to lower lipids. This information is not intended to replace advice given to you by your health care provider. Make sure you discuss any questions you have with your health care provider. Document Revised: 12/24/2021 Document Reviewed: 12/24/2021 [employer] Patient Education 2022 [employer]. 03/19/2024 16:01:27 Dietary Guidelines to Help Prevent Kidney Stones Dietary Guidelines to Help Prevent Kidney Stones Kidney stones are deposits of minerals and salts that form inside your kidneys. Your risk of developing kidney stones may be greater depending on your diet, your lifestyle, the medicines you take, and whether you have certain medical conditions. Most people can lower their risks of developing kidney stones by following these dietary guidelines. Your dietitian may give you more specific instructions depending on your overall health and the type of kidney stones you tend to develop. What are tips for following this plan? Reading food labels Choose foods with no salt added or low-salt labels. Limit your salt (sodium) intake to less than 1,500 mg a day. Choose foods with calcium for each meal and snack. Try to eat about 300 mg of calcium at each meal.Foods that contain 200 500 mg of calcium a serving include: ?8 oz (237 mL) of milk, naesgdi-vieqdrurpyea-ofwca milk, and calcium- fortifiedfruit juice. Calcium-fortified means that calcium has been added to these drinks. ?8 oz (237 mL) of kefir, yogurt, and soy yogurt. ?4 oz (114 g) of tofu. ?1 oz (28 g) of cheese. ?1 cup (150 g) of dried figs. ?1 cup (91 g) of cooked broccoli. ?One 3 oz (85 g) can of sardines or mackerel. Most people need 1,000 1,500 mg of calcium a day. Talk to your dietitian about how much calcium is recommended for you. Shopping Buy plenty of fresh fruits and vegetables. Most people do not need to avoid fruits and vegetables, even if these foods contain nutrients that may contribute to kidney stones. When shopping for convenience foods, choose: ?Whole pieces of fruit. ?Pre-made salads with dressing on the side. ?Low-fat fruit and yogurt smoothies. Avoid buying frozen meals or prepared deli foods. These can be high in sodium. Look for foods with live cultures, such as yogurt and kefir. Choose high-fiber grains, such as whole-wheat breads, oat bran, and wheat cereals. Cooking Do not add salt to food when cooking. Place a salt shaker on the table and allow each person to addtheir own salt to taste. Use vegetable protein, such as beans, textured vegetable protein (TVP), or tofu, instead of meat inpasta, casseroles, and soups. Meal planning Eat less salt, if told by your dietitian. To do this: ?Avoid eating processed or pre-made food. ?Avoid eating fast food. Eat less animal protein, including cheese, meat, poultry, or fish, if told by your dietitian. To dothis: ?Limit the number of times you have meat, poultry, fish, or cheese each week. Eat a diet free of meat at least 2 days a week. ?Eat only one serving each day of meat, poultry, fish, or seafood. ?When you prepare animal proteins, cut pieces into small portion sizes. For most meat and fish, oneserving is about the size of the palm of your hand. Eat at least five servings of fresh fruits and vegetables each day. To do this: ?Keep fruits and vegetables on hand for snacks. ?Eat one piece of fruit or a handful of berries with breakfast. ?Have a salad and fruit at lunch. ?Have two kinds of vegetables at dinner. You may be told to limit foods that are high in a substance called oxalate. These include: ?Spinach (cooked), rhubarb, beets, sweet potatoes, and Vietnamese chard. ?Peanuts. ?Potato chips, nigerian fries, and baked potatoes with skin on. ?Nuts and nut products. ?Chocolate. If you regularly take a diuretic medicine, make sure to eat at least 1 or 2 servings of fruits or vegetables that are high in potassium each day. These include: ?Avocado. ?Banana. ?[place], prune, carrot, or tomato juice. ?Baked potato. ?Cabbage. ?Beans and split peas. Lifestyle Drink enough fluid to keep your urine pale yellow. This is the most important thing you can do. Spread your fluid intake throughout the day. If you drink alcohol: ?Limit how much [...] oz glass of hard liquor (44 mL). Lose weight if told by your health care provider. Work with your dietitian to find an eating plan and weight loss strategies that work best for you. General information Talk to your health care provider and dietitian about taking daily supplements. Depending on your health and the cause of your kidney stones, you may be told: ?Do not take high-dose supplements of vitamin C (1,000 mg a day or more). ?To take a calcium supplement. ?To take a daily probiotic supplement. ?To take other supplements such as magnesium, fish oil, or vitamin B6. Take osms-gkb-whhniyj and prescription medicines only as told by your health care provider. These include supplements. What foods should I limit? Limit your intake of the following foods, or eat them as told by your dietitian. Vegetables Spinach. Rhubarb. Beets. Canned vegetables. Pickles. Olives. Baked potatoes with skin. Grains Wheat bran. Baked goods. Salted crackers. Cereals high in sugar. Meats and other proteins Nuts. Nut butters. Large portions of meat, poultry, or fish. Salted, precooked, or cured meats, such as sausages, meat loaves, and hot dogs. Dairy Cheeses. Beverages Regular soft drinks. Regular vegetable juice. Seasonings and condiments Seasoning blends with salt. Salad dressings. Soy sauce. Ketchup. Barbecue sauce. Other foods Canned soups. Canned pasta sauce. Casseroles. Pizza. Lasagna. Frozen meals. Potato chips. Irish fries. The items listed above may not be a complete list of foods and beverages you should limit. Contact a dietitian for more information. What foods should I avoid? Talk to your dietitian about specific foods you should avoid based on the type of kidney stones youhave and your overall health. Fruits Grapefruit. The item listed above may not be a complete list of foods and beverages you should avoid. Contact adietitian for more information. Summary Kidney stones are deposits of minerals and salts that form inside your kidneys. You can lower your risk of kidney stones by making changes to your diet. The most important thing you can do is drink enough fluid. Drink enough fluid to keep your urine pale yellow. Talk to your dietitian about how much calcium you should have each day, and eat less salt and animal protein as told by your dietitian. This information is not intended to replace advice given to you by your health care provider. Make sure you discuss any questions you have with your health care provider. Document Revised: 01/30/2023 Document Reviewed: 01/30/2023 [employer] Patient Education 2022 [employer]. 03/19/2024 16:01:22 Heart Disease Prevention Heart Disease Prevention Heart disease is the leading cause of in the world. Coronary artery disease is the most common cause of heart disease. This condition results when cholesterol and other substances (plaque) build up inside the rosa of the blood vessels that supply your heart muscle (arteries). This buildup inarteries is called atherosclerosis. You can take actions [...] much sodium is safe for you. Most peopleshould have less than 2,300 mg each day. [...] of hard liquor (44 mL). Medicines Take uqgh-rke-ozsotbc and prescription medicines only as told by [...] should be no higher than 120, and thelower number (diastolic) no higher than 80. Treatment [...] Centers for Disease Control and Prevention: www.cdc.gov/heartdisease [place] [employer]: www.heart.org Summary Heart disease is [...] provider. Document Revised: 06/19/2022 Document Reviewed: 06/19/2022 [employer] Patient Education 2022 [employer] 03/19/2024 16:01:22 Form - Blood Pressure Record Sheet Blood Pressure Record Sheet To take your blood pressure, you will need a blood pressure machine. You may be prescribed one, or you can buy a blood pressure machine (blood pressure monitor) at your clinic, drug store, or online.When choosing one, look for these features: An automatic monitor that has an arm cuff. A cuff that wraps snugly, but not too tightly, around your upper arm. You should be able to fit only one finger between your arm and the cuff. A device that stores blood pressure reading results. Do not choose a monitor that measures your blood pressure from your wrist or finger. Follow your health care provider's instructions for how to take your blood pressure. To use this form: Get one reading in the morning (a.m.) before you take any medicines. Get one reading in the evening (p.m.) before supper. Take at least two readings with each blood pressure check. This makes sure the results are correct.Wait 1 2 minutes between measurements. Write down the results in the spaces on this form. Repeat this once a week, or as told by your health care provider. Make a follow-up appointment with your health care provider to discuss the results. Blood pressure log Date: a.m. (1st reading) (2nd reading) p.m. (1st reading) (2nd reading) Date: a.m. (1st reading) (2nd reading) p.m. (1st reading) (2nd reading) Date: a.m. (1st reading) (2nd reading) p.m. (1st reading) (2nd reading) Date: a.m. (1st reading) (2nd reading) p.m. (1st reading) (2nd reading) Date: a.m. (1st reading) (2nd reading) p.m. (1st reading) (2nd reading) This information is not intended to replace advice given to you by your health care provider. Make sure you discuss any questions you have with your health care provider. Document Revised: 07/04/2022 Document Reviewed: 07/04/2022 [employer] Patient Education 2022 [employer]. 03/19/2024 16:01:21 DASH Eating Plan DASH Eating Plan DASH [...] methods such as baking, boiling, grilling, roasting, andbroiling instead. Cook with heart-healthy oils, such as [...] steamed, roasted, or grilled). Low-sodium or reduced-sodium tomatoand vegetable juice. Low-sodium or reduced-sodium tomato sauce and tomato paste. Low-sodium or reduced-sodium canned vegetables. Grains Whole-grain or whole-wheat bread. Whole-grain or whole-wheat pasta. Brown rice. Oatmeal. Quinoa. Bulgur. Whole-grain and low-sodium cereals. Melissa bread. Low- fat, low-sodium crackers. Whole-wheat flour tortillas. Meats and [...] milk. Reduced-fat, low-fat, or fat-free cheeses. Nonfat, low-sodiumricotta or cottage cheese. Low-fat or nonfat yogurt. [...] Dairy Whole or 2% milk, cream, and pcxh-aes-dqkg. Whole or full-fat cream cheese. Whole-fat or [...] more information National Heart, Lung, and Blood [place]: www.nhlbi.nih.gov [place] [employer] Association: www.heart.org Academy of Nutrition and [...] provider. Document Revised: 09/22/2020 Document Reviewed: 09/22/2020 [employer] Patient Education 2022 [employer]. Follow Up Care 03/16/2024 10:03:20 With:Beatrice Ingram [facility] Address: [address], [address] [facility] [address] [place] [address]- When:Within 1 Month(s) Comments:f/u labs, HTN, [facility] 02-07-2024 Hospital Discharge instructions Patient Education 12/10/2023 17:55:59 [...] have a fall. Your health care provider mayrecommend: Regular vision checks. Poor vision and conditions such as cataracts can make you more likely to have a fall. If you wear glasses, make sure to get your prescription updated if your vision changes. Medicine review. Work with your health care provider to regularly review all of the medicines you are taking, including pkaj-mlv-udoukby medicines. Ask your health care provider about any side effects that may make you more likely to have a fall. Tell your health care provider if any medicines thatyou take make you feel dizzy or sleepy. Strength and balance checks. Your health care provider may recommend certain tests to check your strength and balance while standing, walking, or changing positions. Foot health exam. Foot pain and numbness, as well as not wearing proper footwear, can make you morelikely to have a fall. Screenings, including: ?Osteoporosis [...] your balance and may make you more likelyto have a fall. Follow these instructions at [...] you need help quitting, ask your health careprovider. Activity Follow a regular exercise program to [...] feel dizzy, tiredness (fatigue), or off-balance. Take nmpx-xdu-txhzmzn and prescription medicines only as told by your health care provider. These include supplements. Eat a healthy diet and maintain a healthy weight. A healthy diet includes low- fat dairy products, low-fat (lean) meats, and fiber from whole grains, beans, and lots of fruits and vegetables. Stay current with your vaccines. Schedule regular health, dental, and eye exams. Summary Having a healthy lifestyle and getting preventive care can help to protect your health and wellnessafter age 65. Screening and testing are the best way to find a health problem early and help you avoid having a fall. Early diagnosis and treatment give you the best chance for managing medical conditions that aremore common for people who are older than age 65. Falls are a major cause of broken bones and head injuries in people who are older than age 65. Takeprecautions to prevent a fall at home. Work [...] provider. Document Revised: 03/11/2022 Document Reviewed: 03/11/2022 [employer] Patient Education 2022 [employer]. 12/10/2023 17:55:54 Osteopenia Osteopenia Osteopenia is a [...] bones. Bones are constantly changing. Old bone cellsare continually being replaced with new bone cells. [...] contain nicotine or tobacco, such as cigarettes, e- cigarettes and chewing tobacco, or you drink a [...] to becoming osteoporosis, this condition can be treatedwith medicines and dietary supplements such as calcium [...] contain nicotine or tobacco, such as cigarettes, e- cigarettes, and chewing tobacco. If you need help [...] hard liquor (44 mL). General instructions Take tpwy-udy-hbpfcnl and prescription medicines only as told by [...] for a condition that causes the bones tobecome thin and break more easily (osteoporosis). You may be at risk for osteopenia if you are older than age 50 or if you are a woman who went through early menopause. Osteopenia does not cause any symptoms, but it can be diagnosed with a bone density screening test. Dietary and lifestyle changes are the first treatment for osteopenia. These may lower your risk forosteoporosis. This information is not intended to replace advice given to you by your health care provider. Make sure you discuss any questions you have with your health care provider. Document Revised: 04/05/2021 Document Reviewed: 04/05/2021 [employer] Patient Education 2022 [employer] 12/10/2023 17:55:49 Heart Disease Prevention Heart Disease Prevention Heart disease is the leading cause of in the world. Coronary artery disease is the most common cause of heart disease. This condition results when cholesterol and other substances (plaque) build up inside the rosa of the blood vessels that supply your heart muscle (arteries). This buildup inarteries is called atherosclerosis. You can take actions [...] much sodium is safe for you. Most peopleshould have less than 2,300 mg each day. [...] of hard liquor (44 mL). Medicines Take tvod-gpw-wwvbhra and prescription medicines only as told by [...] should be no higher than 120, and thelower number (diastolic) no higher than 80. Treatment [...] Centers for Disease Control and Prevention: www.cdc.gov/heartdisease [place] [employer] Association: www.heart.org Summary Heart disease is [...] provider. Document Revised: 06/19/2022 Document Reviewed: 06/19/2022 [employer] Patient Education 2022 [employer]. 12/10/2023 17:55:48 DASH Eating Plan DASH Eating [...] methods such as baking, boiling, grilling, roasting, andbroiling instead. Cook with heart-healthy oils, such as [...] steamed, roasted, or grilled). Low-sodium or reduced-sodium tomatoand vegetable juice. Low-sodium or reduced-sodium tomato sauce and tomato paste. Low-sodium or reduced-sodium canned vegetables. Grains Whole-grain or whole-wheat bread. Whole-grain or whole-wheat pasta. Brown rice. Oatmeal. Quinoa. Bulgur. Whole-grain and low-sodium cereals. Melissa bread. Low- fat, low-sodium crackers. Whole-wheat flour tortillas. Meats and [...] milk. Reduced-fat, low-fat, or fat-free cheeses. Nonfat, low-sodiumricotta or cottage cheese. Low-fat or nonfat yogurt. [...] Dairy Whole or 2% milk, cream, and lnsb-jyq-bmhb. Whole or full-fat cream cheese. Whole-fat or [...] more information National Heart, Lung, and Blood [place]: www.nhlbi.nih.gov [place] [employer] Association: www.heart.org Academy of Nutrition and [...] provider. Document Revised: 09/22/2020 Document Reviewed: 09/22/2020 [employer] Patient Education 2022 [employer]. 12/10/2023 17:55:46 Major Depressive Disorder, Adult Major [...] and with everyday activities, such as work, school,and activities that are usually pleasant. MDD may be mild, moderate, or severe. It may be single-episode MDD, which happens once, or recurrent MDD, which may occur multiple times. What are the causes? The exact cause of this condition is not known. MDD is most likely caused by a combination of things, which may include: Your personality traits. [place] or conditioned behaviors or thoughts or feelings [...] medicines help to balance the brain chemicals thataffect your emotions. Lifestyle changes. You may be [...] your health care provider. General instructions Take ogea-zbh-suzyrgt and prescription medicines only as told by your health care provider. Eat a healthy diet and get plenty of sleep. Consider joining a support group. Your health care provider may be able to recommend one. Keep all follow-up visits as told by your health care provider. This is important. Where to find more information National [place] on Mental Illness: www.anthony.org [place] National [place] of Mental Health: www.nimh.nih.gov Contact a health care provider if: Your symptoms get worse. You develop new symptoms. Get help right away if: You self-harm. You have serious thoughts about hurting yourself or others. You hallucinate. If you ever feel like you may hurt yourself or others, or have thoughts about taking your own life,get help right away. Go to your nearest emergency department or: Call your local emergency services (798 in the [place] Call a suicide crisis helpline, such as the National Suicide Prevention Lifeline at or 771 in the [place] This is open 24 hours a day in the [place] Text the Crisis Text Line at 215987 (in the [place] Summary Major depressive disorder [...] You may need more than one type oftreatment. Get help right away if you have serious thoughts about hurting yourself or others. This information is not intended to replace advice given to you by your health care provider. Make sure you discuss any questions you have with your health care provider. Document Revised: 05/15/2022 Document Reviewed: 09/30/2020 [employer] Patient Education 2022 [employer]. 12/10/2023 17:55:43 Fatigue Fatigue If you have fatigue, you feel tired all the time and have a lack of energy or a lack of motivation.Fatigue may make it difficult to start or [...] Follow these instructions at home: Medicines Take rifi-oia-ntbyadw and prescription medicines only as told by [...] yourself or others, or have thoughts about takingyour own life. Go to your nearest emergency room or: Call 911. Call the National Suicide Prevention Lifeline at or 773. This is open 24 hours a day. Text the Crisis Text Line at 104947. Summary If you have fatigue, you feel [...] provider. Document Revised: 08/12/2022 Document Reviewed: 08/12/2022 [employer] Patient Education 2022 [employer]. Follow Up Care 10/30/2023 15:21:43 With:Beatrice Ingram, [facility] Address: [address], [address] [address]- When:Within 4 Week(s) Comments:Follow-up on ultrasound of the kidney, CT chest, lab results, hypertension, smoking sensation, [facility] 02-01-2024 Evaluation + Plan note Future Appointments Appointment Date:12/11/2023 01:45:00 PM Scheduled Provider: Location:FT.OCCUPATIONAL Appointment Type:OT 60 (FT) Appointment Date:12/15/2023 02:15:00 PM Scheduled Provider: Location:.OCCUPATIONAL Appointment Type:OT 60 (FT) Appointment Date:12/16/2023 02:00:00 PM Scheduled Provider: Location:.OCCUPATIONAL Appointment Type:OT 60 (FT) Appointment Date:12/18/2023 08:15:00 AM Scheduled Provider: Location:.OCCUPATIONAL Appointment Type:OT Re-Eval (FT) Appointment Date:01/21/2024 01:40:00 PM Scheduled Provider:Beatrice Ingram Location:[facility] Appointment Type:FM Open Appointment Date:07/13/2024 02:30:00 PM Scheduled Provider: Location:[facility] Appointment Type: Medicare Wellness Subsequent Future Scheduled Tests Laboratory* Sedimentation Rate Automated 12/10/23 * HgbA1c 12/10/23 * UA With Cult Reflex 12/10/23 * Vitamin D 25 Hydroxy 12/10/23 * CBC w/ Auto Diff 12/10/23 * Comprehensive Metabolic Panel 12/10/23 * Lipase Level 12/10/23 * Lipid Panel 12/10/23 * Thyroid Stimulating Hormone 12/10/23 * Free T4 12/10/23 Radiology* CT Chest, Low Dose Screening 12/10/23 * US Renal 12/10/23 * MA Mamm Screen w/CAD if perf and 3D Jai 12/10/23 [facility] 12-28-2023 Hospital Discharge instructions Patient Education 10/30/2023 15:37:17 [...] 2 years of age, people with certain medicalconditions, adults 65 years or older, and cigarette [...] dose of PPSV23, and another type of pneumococcalvaccine called PCV13, are recommended for certain high-risk [...] leaves the clinic. If you see signs ofa severe allergic reaction (hives, swelling of the face and throat, difficulty breathing, a fast heartbeat, dizziness, or weakness), call 07-04-1 and get the person to the nearest hospital. For other signs that concern you, call your health care provider. Adverse reactions should be reported to the Vaccine Adverse Event Reporting System (VAERS). Your health care provider will usually file this report, or you can do it yourself. Visit the VAERS websiteat www.vaers.[facility].gov or call . VAERS is only for reporting reactions, and VAERS staffdo not give medical advice. 6. How can I learn more? Ask your health care provider. Call your local or state health department. Contact the Centers for Disease Control and Prevention (CDC): ?Call (8-145-QEY-INFO) or ?Visit CDC's website at www.cdc.gov/vaccines Source: CDC Vaccine Information Statement PPSV23 Vaccine (09/01/2019) This same material is available at www.cdc.gov for no charge. This information is not intended to replace advice given to you by your health care provider. Make sure you discuss any questions you have with your health care provider. Document Revised: 09/18/2022 Document Reviewed: 07/22/2022 [employer] Patient Education 2022 [employer] 10/30/2023 15:37:01 Understanding Your Risk for Falls [...] a fall happen most often to people olderthan age 65. Children and young adults ages [...] more information Centers for Disease Control and PreventionKENNY: www.cdc.gov Community-Based Fall Prevention Programs: www.cdc.gov National [place] on Aging: www.erich.nih.gov Contact a health care [...] provider. Document Revised: 05/23/2021 Document Reviewed: 05/23/2021 [employer] Patient Education 2022 [employer]. 10/30/2023 15:36:56 Exercising to Lose Weight Exercising to Lose Weight Getting regular exercise is important for everyone. It is especially important if you are overweight. Being overweight increases your risk of heart disease, stroke, diabetes, high blood pressure, andseveral types of cancer. Exercising, and reducing the [...] of moderate-intensity exercise a week to maintain theirbody weight. Vigorous-intensity exercise Vigorous-intensity exercise is any [...] you need and what types of activities aresafe for you. Nutrition Make changes to your diet as told by your health care provider or diet and claims specialist (dietitian). This may include: ?Eating fewer calories. ?Eating more protein. ?Eating less unhealthy fats. ?Eating a diet that includes fresh fruits and vegetables, whole grains, low-fat dairy products, andlean protein. ?Avoiding foods with added fat, salt, [...] provider. Document Revised: 12/16/2021 Document Reviewed: 12/16/2021 [employer] Patient Education 2022 [employer]. 10/30/2023 15:36:55 DASH Eating Plan DASH Eating [...] methods such as baking, boiling, grilling, roasting, andbroiling instead. Cook with heart-healthy oils, such as [...] steamed, roasted, or grilled). Low-sodium or reduced-sodium tomatoand vegetable juice. Low-sodium or reduced-sodium tomato sauce and tomato paste. Low-sodium or reduced-sodium canned vegetables. Grains Whole-grain or whole-wheat bread. Whole-grain or whole-wheat pasta. Brown rice. Oatmeal. Quinoa. Bulgur. Whole-grain and low-sodium cereals. Melissa bread. Low- fat, low-sodium crackers. Whole-wheat flour tortillas. Meats and [...] milk. Reduced-fat, low-fat, or fat-free cheeses. Nonfat, low-sodiumricotta or cottage cheese. Low-fat or nonfat yogurt. [...] Dairy Whole or 2% milk, cream, and pdwx-cqj-odpi. Whole or full-fat cream cheese. Whole-fat or [...] more information National Heart, Lung, and Blood [place]: www.nhlbi.nih.gov Vincent[place] Heart Association: www.heart.org Academy of Nutrition and [...] provider. Document Revised: 09/22/2020 Document Reviewed: 09/22/2020 [employer] Patient Education 2022 [employer] 10/30/2023 15:36:53 BMI for Adults BMI for Adults What is BMI? Body mass index (BMI) is a number that is calculated from a person's weight and height. BMI can help estimate how much of a person's weight is composed of fat. BMI does not measure body fat directly.Rather, it is an alternative to procedures that [...] your height. Both height and weight are measured,and the BMI is calculated from those numbers. This can be done either in [place] ([place] or metric measurements. Note that charts and online BMI calculators are available to help you find your BMI quickly and easily without having to do these calculations yourself. To calculate your BMI in [place] ([place] measurements: 1.Measure your weight in pounds [...] inches squared measurement is 70 inches x 70inches, which equals 4,900 inches squared. 4.Divide the [...] muscular build, such as an athlete, may havea BMI that is higher than 24.9. In cases like these, BMI is not an accurate measure of body fat. To determine if excess body fat is the cause of a BMI of 25 or higher, further assessments may needto be done by a health care provider. BMI is usually interpreted in the same way for men and women. Where to find more information For more information about BMI, including tools to quickly calculate your BMI, go to these websites: Centers for Disease Control and Prevention: www.cdc.gov Vincent[place] Heart Association: www.heart.org National Heart, Lung, and Blood [place]: www.nhlbi.nih.gov Summary Body mass index (BMI) is a number that is calculated from a person's weight and height. BMI may help estimate how much of a person's weight is composed of fat. BMI can help identify thosewho may be at higher risk for certain medical problems. BMI can be measured using [place] measurements or metric measurements. BMI charts are used to identify whether you are underweight, normal weight, overweight, or obese. This information is not intended to replace advice given to you by your health care provider. Make sure you discuss any questions you have with your health care provider. Document Revised: 07/12/2020 Document Reviewed: 05/19/2020 [employer] Patient Education 2022 [employer] [facility] 11-30-2023 NoteCardiovascular Medicine [facility] SUBJECTIVE No chief complaint on file. RORY Zapata is a 68 y.o. female here as [...] in about 3 months (around 01/01/2024). Dario Vang APRN-[facility] NoteNew patient here to establish care. Ref from Dr. Griffin for surgery clearance prior to wrist surgery. [...] depression. All other systems reviewed and are negative.[facility] 08-[facility] Hospital Discharge instructions Patient Education 08/21/2023 15:21:56 Parotitis, Ivss-nl-Gist Parotitis Parotitis means that you have irritation and swelling (inflammation) in one or both of your parotidglands. These glands make saliva. They are found on each side of your face, below and in front of your earlobes. You may or may not have pain with this condition. What are the causes? This condition may be caused by: Infections from germs (bacteria or viruses). Something blocking the flow of saliva through the parotid glands. This can be a stone, scar tissue,or a tumor. Diseases that cause your body's [...] Follow these instructions at home: Medicines Take bdbm-auq-mzxqcke and prescription medicines only as told by [...] saliva. Take good care of your mouth: ?[place] your teeth at least two times a [...] away. Call your local emergency services ([facility] [place] Do not wait to see if the symptoms will go away. Do not drive yourself to the hospital. Summary Parotitis means that you have irritation and swelling (inflammation) in one or both of your parotidglands. Symptoms include pain and swelling under and [...] provider. Document Revised: 03/01/2022 Document Reviewed: 03/01/2022 [employer] Patient Education 2022 [employer]. 08/21/2023 15:21:53 Sinus Infection, Adult Sinus Infection, [...] a feeling of pressure around the affected sinuses.Other symptoms include: Stuffy nose or congestion that [...] saline washes). ?Medicines that treat allergies (antihistamines). ?Fozh-jdh-ujdhavs pain relievers. If caused by bacteria, your [...] at home: Medicines Take, use, or apply zuip-fkx-xshbrbj and prescription medicines only as told by your health care provider. These may include nasal sprays. If you were prescribed an antibiotic medicine, take it as told by your health care provider. Do notstop taking the antibiotic even if you start [...] or as told by your health care provider.This will help with discomfort. Use nasal saline washes as often as told by your health care provider. Wash your hands often with soap and water to reduce your exposure to germs. If soap and water are not available, use hand scientific database curator. Do not smoke. Avoid being around people [...] told by your health care provider. Do notstop taking the antibiotic even if you start to feel better. Keep all follow-up visits. This is important. This information is not intended to replace advice given to you by your health care provider. Make sure you discuss any questions you have with your health care provider. Document Revised: 09/24/2022 Document Reviewed: 09/24/2022 [employer] Patient Education 2022 [employer] Follow Up Care 08/21/2023 13:44:38 With:Martha Hathaway CNP Address:Unknown When: Unknown [facility] 07-07-2022 NotePROCEDURE: XR FOOT RT MIN 3 VIEWS HISTORY: Pain in right [...] Electronically authenticated by: DENIA JOHNS Date: 2022-05-09 12:09[facility] Hospital Discharge instructions Patient Education 04/18/2022 18:27:01 [...] this type of pain, you may also haveweakness, numbness, or tingling in the area of your body that is supplied by the nerve. The pain may feel sharp and burning. Depending on which spinal nerve is affected, the pain may occur in the: Neck area (cervical radicular pain). You may also feel pain, numbness, weakness, or tingling in thearms. Mid-spine area (thoracic radicular pain). You would feel this pain in the back and chest. This typeis rare. Lower back area (lumbar radicular pain). [...] told by your health care provider. Use theheat source that your health care provider recommends, [...] knees and rising up. Do strength and unegi-md-gqqoup exercises only as told by your health care provider or physical therapist. General instructions Take njfm-hum-sfhhngz and prescription medicines only as told by [...] numbness, or tingling in the area of yourbody that is supplied by the nerve. The pain may feel sharp or burning. Radicular pain may be treated with ice, heat, medicines, or physical therapy. This information is not intended to replace advice given to you by your health care provider. Make sure you discuss any questions you have with your health care provider. Document Released: 11/27/2005 Document Revised: 05/04/2019 Document Reviewed: 05/04/2019 [employer] Patient Education 2020 [employer]. 04/18/2022 18:26:03 Tobacco Use Disorder Tobacco Use [...] have at least two symptoms within a 12- month period. How is this treated? This condition is treated by stopping tobacco use. Many people are unable to quit on their own and need help. Treatment may include: Nicotine replacement therapy (NRT). NRT provides nicotine without the other harmful chemicals in tobacco. NRT gradually lowers the dosage of nicotine in the body and reduces withdrawal symptoms. NRT is available as: ?Yvqs-afs-ewrqfpd gums, lozenges, and skin patches. ?Prescription mouth [...] recovery for many people. General instructions Take awzs-zut-lovuzsy and prescription medicines only as told by your health care provider. Check with your health care provider before taking any new prescription or azag-qag-faxemkn medicines. Decide on a friend, family member, or smoking quit-line (such as 9-962-AEHB-NOW in the [place] that you can call [...] 06/25/2005 Document Revised: 10/07/2018 Document Reviewed: 10/07/2018 [employer] Patient Education 2020 [employer] 04/18/2022 18:25:59 BMI for Adults BMI for [...] problems. It is used to check whether aperson is obese, overweight, healthy weight, or underweight. How is BMI calculated? BMI measures your weight and compares it to your height. This can be done either in [place] ([place] or metric measurements. Note that charts are available to help you find your BMI quickly and easily without having to do these calculations yourself. To calculate your BMI in [place] ([place] measurements, your health care provider will: [...] muscular build, such as an athlete, may havea BMI that is higher than 24.9. In cases like these, BMI is not an accurate measure of body fat. To determine if excess body fat is the cause of a BMI of 25 or higher, further assessments may needto be done by a health care provider. [...] medical problems. BMI can be measured using [place] measurements or metric measurements. To interpret your [...] 07/01/2005 Document Revised: 10/02/2018 Document Reviewed: 09/02/2018 [employer] Patient Education 2020 [employer]. 04/18/2022 18:25:57 Vitamin D Deficiency Vitamin D [...] that vitamin D has been added to thefood. Check the label on the package to [...] 01/11/2013 Document Revised: 06/28/2019 Document Reviewed: 06/28/2019 [employer] Patient Education 2020 [employer]. 04/18/2022 18:25:50 Managing Anxiety, Adult Managing Anxiety, [...] both good and bad. Most stress will lastjust a few hours, but stress can be [...] effectively so that it does not lead jennifer anxious response. Talk with your health care provider or a counselor to learn more about reducing anxiety and stress.He or she may suggest tension reduction techniques, [...] phrase, or sacred image that means something toyou and brings you peace. Deep breathing. To [...] for anxiety. Recovery from anxiety happens when symptomsdecrease and stop interfering with your daily activities [...] exercise should increase your heart rate and makeyou sweat (moderate-intensity exercise). ?Strengthening exercises at least [...] contain nicotine or tobacco, such as cigarettes, e- cigarettes, and chewing tobacco. If you need help quitting, ask your health care provider. Avoid caffeine, alcohol, and certain gzub-eqm-dseyrze cold medicines. These may make you feel worse. Ask your pharmacist which medicines to avoid. General instructions Take tfhl-noz-zrnnprp and prescription medicines only as told by [...] Depression Association of [place] (ADAA): www.adaa.org National [place] on Mental Illness (ANTHONY): www.anthony.org Contact a [...] or have thoughts about taking your own life,get help right away. You can go to your nearest emergency department or call: Your local emergency services (911 in the [place] A suicide crisis helpline, such as the National Suicide Prevention Lifeline at . Thisis open 24 hours a day. Summary Taking [...] 10/14/2017 Document Revised: 03/21/2020 Document Reviewed: 03/21/2020 [employer] Patient Education 2020 [employer]. 04/18/2022 18:25:47 Major Depressive Disorder, Adult Major [...] history. This may involve tests to evaluate yourmental health. You may be asked questions about your lifestyle, including any drug and alcohol use,and how long you have had symptoms of [...] your health care provider. General instructions Take zfqk-gus-nqledwl and prescription medicines only as told by your health care provider. Do not drink alcohol. If you drink alcohol, limit your alcohol intake to no more than 1 drink a dayfor non women and 2 drinks a day [...] important. Where to find more information National [place] on Mental Illness www.anthony.org [place] National [place] of Mental Health www.[facility].nih.gov National Suicide Prevention Lifeline 7-807-993-XWIR (4647). This is free, 24-hour help. Contact a [...] 02/14/2014 Document Revised: 10/02/2018 Document Reviewed: 04/30/2017 [employer] Patient Education 2020 [employer] 04/18/2022 18:25:41 Dyslipidemia Dyslipidemia Dyslipidemia is an imbalance of waxy, fat-like substances (lipids) in the blood. The body needs lipids in small amounts. Dyslipidemia often involves a high level of cholesterol or triglycerides, which are types of lipids. Common forms of dyslipidemia include: High levels of LDL cholesterol. LDL is the type of cholesterol that causes fatty deposits (plaques)to build up in the blood vessels that [...] or if you are a woman who hasgone through menopause. Other risk factors include: Having [...] bumps under the skin (xanthomas). White or valle ring around the black center (pupil) of [...] target range for your lipid levels based onthis information. For many people, this condition may [...] contain nicotine or tobacco, such as cigarettes, e- cigarettes, and chewing tobacco. If you need help quitting, ask your health care provider. Take wpja-qvy-lxilisr and prescription medicines only as told by [...] 10/25/2014 Document Revised: 06/14/2019 Document Reviewed: 05/21/2019 [employer] Patient Education 2020 [employer]. 04/18/2022 18:25:39 DASH Eating Plan DASH Eating Plan DASH stands for Dietary Approaches to Stop Hypertension. The DASH eating plan is a healthy eatingplan that has been shown to reduce high blood pressure (hypertension). It may also reduce your riskfor type 2 diabetes, heart disease, and stroke. [...] your health care provider or diet and claims specialist (dietitian) to adjust your eating plan [...] meal, try to fill half of your platewith fruits and vegetables. ?Up to 6 8 [...] each week. ?Heart-healthy fats. Healthy fats called [place]-3 fatty acids are found in foods such [...] Bulgur. Whole-grain and low-sodium cereals. Melissa bread. Low- fat, low-sodium crackers. Whole-wheat flour tortillas. Vegetables Fresh or frozen vegetables (raw, steamed, roasted, or grilled). Low-sodium or reduced-sodium tomatoand vegetable juice. Low-sodium or reduced-sodium tomato sauce [...] milk. Fat-free, low-fat, or reduced-fat cheeses. Nonfat, low-sodiumricotta or cottage cheese. Low-fat or nonfat yogurt. Low-fat, low-sodium cheese. Fats and oils Soft margarine without trans fats. Vegetable oil. Low-fat, reduced-fat, or light mayonnaise and salad dressings (reduced-sodium). Canola, safflower, olive, soybean, and sunflower oils. Avocado. Seasoning and other foods Herbs. Spices. Seasoning mixes without salt. Unsalted popcorn and pretzels. Fat- free sweets. What foods are not recommended? The [...] Dairy Whole or 2% milk, cream, and opep-cpx-bddi. Whole or full-fat cream cheese. Whole-fat or [...] Barbecue sauce. Teriyaki sauce. Soy sauce, including reduced-sodium.Steak sauce. Canned and packaged gravies. Fish sauce. Oyster sauce. Cocktail sauce. Horseradish that you find on the shelf. Ketchup. Mustard. Meat flavorings and tenderizers. Bouillon cubes. Hot sauce and Tabasco sauce. Premade or packaged marinades. Premade or packaged taco seasonings. Relishes. Regular salad dressings. Where to find more information: National Heart, Lung, and Blood [place]: www.nhlbi.nih.gov Vincent[place] Heart Association: www.heart.org Summary The DASH eating [...] your health care provider or diet and claims specialist (dietitian) to adjust your eating plan to your individual calorie needs. This information is not intended to replace advice given to you by your health care provider. Make sure you discuss any questions you have with your health care provider. Document Released: 10/08/2012 Document Revised: 10/02/2018 Document Reviewed: 10/13/2017 [employer] Patient Education 2020 [employer]. Follow Up Care 04/17/2022 13:33:25 With:Martha Hathaway CNP Address: When:[address] [facility] 06-16-2022 Evaluation + Plan note Future Scheduled Tests Laboratory* Vitamin D 25 Hydroxy 04/18/22 [facility] [place] Evaluation + Plan note Future Appointments Appointment Date:09/06/2022 01:00:00 PM Scheduled Provider: Location:[facility] Appointment Type: Medicare Wellness Subsequent Future Scheduled Tests Radiology* BD Bone Density DEXA 10/03/21 * MA Mamm Screen w/CAD if perf and [facility]D [facility] Appointment Date:05/01/2022 02:20:00 PM Scheduled Provider:Leopoldo Sanchez DO Location:[facility] Appointment Type:[facility] Appointment Date:09/06/2022 01:00:00 PM Scheduled Provider: Location:[facility] Appointment Type: Medicare Wellness Subsequent Future Scheduled Tests Laboratory* Vitamin D 25 Hydroxy 04/18/22 Radiology* BD Bone Density DEXA 10/03/21 * MA Mamm Screen w/CAD if perf and 3D Jai 10/03/21 [facility] Evaluation + Plan note Future Appointments Appointment Date:09/17/2023 01:00:00 PM Scheduled Provider: Location:[facility] Appointment Type:FM Medicare Wellness Subsequent [facility] Evaluation + Plan note Future Appointments Appointment Date:11/10/2023 01:15:00 PM Scheduled [facility]: [facility] Type:OT Eval () Appointment Date:12/10/2023 04:00:00 PM Scheduled Provider:Beatrice Ingram Location:[facility] Appointment Type: New Patient - Adult Appointment Date:07/13/2024 02:30:00 PM Scheduled Provider: Location:[facility] Appointment Type: Medicare Wellness Subsequent [facility] Evaluation + Plan note Future Appointments Appointment Date:01/21/2024 01:40:00 PM Scheduled Provider:Beatrice Ingram Location:[facility] Appointment Type: Open Appointment Date:07/13/2024 02:30:00 PM Scheduled Provider: Location:[facility] Appointment Type:FM Medicare Wellness Subsequent Future Scheduled Tests Laboratory* Sedimentation Rate Automated 12/10/23 * HgbA1c 12/10/23 * UA With Cult Reflex 12/10/23 * Vitamin D 25 Hydroxy 12/10/23 * CBC w/ Auto Diff 12/10/23 * Comprehensive Metabolic Panel 12/10/23 * Lipase Level 12/10/23 * Lipid Panel 12/10/23 * Thyroid Stimulating Hormone 12/10/23 * Free T4 12/10/23 Radiology* MA Mamm Screen w/CAD if perf and 3D Jai [facility] Appointment Date:04/19/2024 03:00:00 PM Scheduled Provider:Beatrice Ingram Location:[facility] Appointment Type: Open Appointment Date:07/13/2024 02:30:00 PM Scheduled Provider: Location:[facility] Appointment Type: Medicare Wellness Subsequent Future Scheduled Tests Laboratory* Sedimentation Rate Automated 12/10/23 * HgbA1c 12/10/23 * UA With Cult Reflex 12/10/23 * Vitamin D 25 Hydroxy 12/10/23 * CBC w/ Auto Diff 12/10/23 * Comprehensive Metabolic Panel 12/10/23 * Lipase Level 12/10/23 * Lipid Panel 12/10/23 * Thyroid Stimulating Hormone 12/10/23 * Free T4 12/10/23 Radiology* US Gallbladder 03/19/24 * CT Chest, Low Dose Screening 03/19/24 * US Renal 03/19/24 * MA Mamm Screen w/CAD if perf and 3D Jai 12/10/23 [facility] Primary Care evaluation + Plan note Future Appointments Appointment Date:04/19/2024 02:40:00 PM Scheduled Provider:Beatrice Ingram Location:[facility] Appointment Type:FM Open Appointment Date:07/13/2024 02:30:00 PM Scheduled Provider: Location:[facility] Appointment Type: Medicare Wellness Subsequent Diagnostic Tests Pending * Urine Culture 04/02/24 Future Scheduled Tests Radiology* MA Mamm Screen w/CAD if perf and 3D Jai [facility] Appointment Date:07/12/2024 02:00:00 PM Scheduled Provider:Antonio FUENTES MD Location:[facility] Appointment Type:URO New Patient Appointment Date:07/13/2024 02:30:00 PM Scheduled Provider: Location:[facility] Appointment Type: Medicare Wellness Subsequent Appointment Date:07/15/2024 02:00:00 PM Scheduled Provider:Beatrice Ingram Location:[facility] Appointment Type: Open Future Scheduled Tests Laboratory* Basic Metabolic Panel 04/14/24 Radiology* MA Mamm Screen w/CAD if perf and 3D Jai 12/10/23 [facility] Primary Care evaluation + Plan note Future Appointments Appointment Date:04/27/2024 02:20:00 PM Scheduled Provider:Aakash Levy MD Location:[facility] Appointment Type:GS New 30 Appointment Date:07/12/2024 02:00:00 PM Scheduled Provider:Antonio FUENTES MD Location:[facility] Appointment Type:URO New Patient Appointment Date:07/13/2024 02:30:00 PM Scheduled Provider: Location:[facility] Appointment Type: Medicare Wellness Subsequent Appointment Date:07/15/2024 02:00:00 PM Scheduled Provider:Beatrice Ingram Location:[facility] Appointment Type:FM Open Future Scheduled Tests Laboratory* Basic Metabolic Panel 04/14/24 Radiology* MA Mamm Screen w/CAD if perf and 3D Jai [facility] Appointment Date:05/21/2024 10:00:00 AM Scheduled Provider: Location:[facility] Appointment Type:Surgery CALL PAT FT Appointment Date:05/26/2024 08:00:00 AM Scheduled Provider: Location:[facility] Appointment Type:Surgery FT Appointment Date:06/04/2024 08:20:00 AM Scheduled Provider:Aakash Levy MD Location:[facility] Appointment Type:GS Post Op 15 Appointment Date:07/12/2024 02:00:00 PM Scheduled Provider:Antonio FUENTES MD Location:[facility] Appointment Type:URO New Patient Appointment Date:07/13/2024 02:30:00 PM Scheduled Provider: Location:[facility] Appointment Type: Medicare Wellness Subsequent Appointment Date:07/15/2024 02:00:00 PM Scheduled Provider:Beatrice Ingram Location:[facility] Appointment Type: Open Future Scheduled Tests Laboratory* Basic Metabolic Panel 04/14/24 Radiology* MA Mamm Screen w/CAD if perf and 3D Jai 12/10/23 [facility] Evaluation + Plan note Future Appointments Appointment Date:07/13/2024 02:30:00 PM Scheduled Provider: Location:[facility] Appointment Type:FM Medicare Wellness Subsequent Appointment Date:07/15/2024 02:00:00 PM Scheduled Provider:Beatrice Ingram Location:[facility] Appointment Type:FM Open Appointment Date:08/19/2024 08:30:00 AM Scheduled Provider:Lucinda Jin MD Location:[facility] Appointment Type:URO New Patient Future Scheduled Tests Laboratory* Basic Metabolic Panel 04/14/24 Radiology* MA Mamm Screen w/CAD if perf and 3D Jai 12/10/23 [facility] Hospital course Narrative No data available for this section [facility] No data available for this section [facility] No data available for this section [facility] Primary Care Summary Purpose Family History No Family History Records FoundNo Family History Records Found No data available for this section No Family History Records Found No data available for this section No data available for this section No data available for this section No data available for this section No data available for this section No Family History Records FoundNo Family History Records FoundNo Family History Records FoundNo Family History Records FoundNo Family History Records FoundNo Family History Records FoundNo Family History Records FoundNo Family History Records FoundNo Family History Records FoundNo Family History Records FoundNo Family History Records FoundNo Family History Records Found No data available for this section No data available for this section No data available for this section No data available for this section No data available for this section No data available for this section No Family History Records FoundNo Family History Records FoundNo Family History Records FoundNo Family History Records FoundNo Family History Records Found Advance Directives No [...] section and content) DATE CREATED AUTHOR 04/29/2018 [facility] DATE CREATED AUTHOR AUTHOR'S ORGANIZ ATION 05/12/2022 [facility] DATE CREATED AUTHOR AUTHOR'S ORGANIZ ATION 10/06/2023 Nadiya herrera DATE CREATED AUTHOR AUTHOR'S ORGANIZ ATION 04/03/2024 [facility] DATE CREATED AUTHOR AUTHOR'S ORGANIZ ATION 04/04/2024 [facility] DATE CREATED AUTHOR AUTHOR'S ORGANIZ ATION 06/07/2024 [facility] DATE CREATED AUTHOR AUTHOR'S ORGANIZ ATION 06/10/2024 [facility] DATE CREATED AUTHOR AUTHOR'S ORGANIZ ATION 07/01/2024 [facility] DATE CREATED AUTHOR AUTHOR'S ORGANIZ ATION 07/13/2024 [facility] DATE CREATED AUTHOR AUTHOR'S ORGANIZ ATION 07/14/2024 [facility] Care Team (unrecognized sect ion and content) Personnel Name: Martha Hathaway CNP Address: [address] [place] [address] [place] Name: Nia Wolff Personnel Name: Martha Hathaway CNP Address: Address: [address] [place] [address] [place] Name: Nia Wolff Personnel Name: Martha Hathaway CNP Address: Address: [address] [place] [address] [place] Name: Nia Wolff Personnel Name: Miguel Atkins MD Address: Address: [address] [place] [address] Name: Nia Wolff Personnel Name: Beatrice Ingram Address: Address: [address] [place] [address] [place] [address]- Name: Nia Wolff Personnel Name: Beatrice Ingram Address: Address: [address] [place] [address] [place] [address]- Name: Nia Wolff Personnel Name: Beatrice Ingram Address: Address: [address] [place] [address] [place] [address]- Name: Nia Wolff Personnel Name: Beatrice Ingram Address: Address: [address] [place] [address] [place] [address]- Name: Nia Wolff Personnel Name: Beatrice Ingram Address: Address: [address] [place] [address] [place] [address]- Name: Nia Wolff Personnel Name: Beatrice Ingram Address: Address: [facility] [address], [place] [address]- Name: Nia Wolff Personnel Name: Cameron ROSEThiagoHernandoBeatrice Address: Address: [facility] [address], [place] [address]- Name: Nia Wolff Personnel Name: Cameron ROSEThiagoHernandoBeatrice Address: Address: [facility] [address], [place] [address]- Name: Nia Wolff Personnel Name: Cameron ROSEThiagoHernandoBeatrice Address: Address: [facility] [address], [facility] [place] [address]- Name: Nia Wolff Personnel Name: Cameron ROSEBeatrice Cho Address: Address: [address] [place], [place] [address]dict [place], [facility] [place] [address]- Name: Nia Wolff FOR RECORDS PERTAINING TO [...] BE BASED ON THE PRIMARY CLINICAL RECORDS. [facility]. provides no warranty or guarantee of the accuracy or completeness of information in this document.
== END 2024-07-28 12:33 | disposition home or self-care (01) ==
LOC: EC 12:32
PROVIDERS: Visit Provider Podiatrist Foot & Ankle Surgery
DX: M79.671 Pain in right foot (principal)
CPT/HCPCS: 73630

== ENCOUNTER 2024-08-16 08:51 | Outpatient (OUT) | payer MEDICARE, SELFPAY ==
--- OUTSIDE RECORDS SUMMARY | 2024-08-16 09:02 | XMS_ITS | CCD ---
Author Organization [facility] Care Team Providers Care Postdoctoral Scientist Name Role Phone RUBENS SWARTZ Unavailable Unavailable CHELSEYCAMRYN HERRMANN Unavailable Unavailable Martha Hathaway Primary Care Physician Nia Wolff Unavailable Unavailable DR DENIA JOHNS Consulting Unavailable MIGUEL COLEMAN Attending Unavailable MIGUEL COLEMAN Admitting Unavailable MIGUEL COLEMAN Consulting Unavailable DENIA GRIFFIN Referring Unavailable DENIA GRIFFIN Admitting Unavailable DENIA GRIFFIN Attending Unavailable Miguel Atkins Primary Care Physician Beatrice Barnes Primary Care Physician Beatrice Barnes Referring Unavailable Beatrice Barnes Attending Unavailable Beatrice Barnes Admitting Unavailable oTny Edmondson Attending Unavailable Beatrice Barnes Admitting Unavailable [...] Substance Allergy Swelling (finding) [facility] Penicillins (antibiotic) (1 source) Penicillins; Translations: [penicillins] Drug Allergy H/O: blackout (context-depend ent category) [facility] (19 sources) Contrast media; Translations: [CONTRAST DYE] Propensity to adverse reactions to drug (disorder) 7 Swelling (finding) [facility] (20 sources) Penicillins; Translations: [PENICILLINS] Propensity to adverse reactions to drug (disorder) 7 H/O: blackout (context-depend ent category) [facility] (19 sources) adhesives; Translations: [adhesives] Allergy to substance redness [facility] (1 source) Iodine (And Iodine Containting Drugs) Drug allergy (disorder) 6 [facility] (1 source) Latex; Translations: [LATEX] Propensity to adverse reactions to drug (disorder) 4 [facility] (1 source) IODINATED CONTRAST MEDIA; Translations: [IODINATED CONTRAST MEDIA] Propensity to adverse reactions to drug (disorder) 7 [facility] Repository Medications Current Medications Medication Drug Class(es) Dates Sig (Normalized) Sig (Original) acetaminophen 325 mg / HYDROcodone bitartrate 5 mg oral tablet (2 sources) Opioid Agonist Start: 05-26-2024 End: 05-28-2024 [place] 325 mg-5 mg oral tablet 1 tab(s), Oral, q6hr as needed for pain, 10 tab(s), Refill(s) 0, [facility] #[facility], 166, cm, 05/26/24 6:21:00 EDT, Height/Length Dosing, 104.7, kg, 05/26/24 6:21:00 EDT, Weight Dosing Start Date: 05/26/24 Stop Date: 05/28/24 Status: Ordered Albuterol (Eqv-ProAir HFA) 90 mcg/inh inhalation aerosol (6 sources) Start: 04-14-2024 take 2 puff(s) by inhalation every six hours Albuterol (Eqv-ProAir HFA) 90 mcg/inh inhalation aerosol 2 puff(s), Inhalation, q6hr, 18 gm, Refill(s) 6, [facility], 162.2, cm, 04/14/24 14:03:00 EDT, Height/Length Dosing, 104.9, kg, 04/14/24 14:03:00 EDT, Weight Dosing Start Date: 04/14/24 Status: Ordered amLODIPine 5 mg oral tablet (1 source) Dihydropyridine Calcium Channel Cyrus Start: 05-17-2020 take 1 tablet by mouth once daily Norvasc 5 mg Tab 5 mg = 1 tab(s), Oral, Daily, # 90 cap(s), Refills(s) 3, Pharmacy: [facility], 170.1, cm, 12/28/19 11:34:00 EST, Height/Length Measured, 106, kg, 10/06/19 11:07:00 EST, Weight Measured Start Date: 05/17/20 Status: Ordered 12 hr buPROPion hydrochloride 150 mg extended release oral tablet (10 sources) Aminoketone Start: 03-19-2024 take 1 tablet by mouth twice daily Wellbutrin SR 150 mg Tab-ER 150 mg = 1 tab(s), Oral, BID, # 180 tab(s), Refills(s) 0, Pharmacy: [facility], 162.2, cm, 03/19/24 15:05:00 EDT, Height/Length Dosing, 103.9, kg, 03/19/24 15:05:00 EDT, Weight Dosing Start Date: 03/19/24 Status: Ordered Start: 12-10-2023 take 1 tablet by poncho twice daily Wellbutrin SR 150 mg Tab-ER 150 mg = 1 tab(s), Oral, BID, # 180 tab(s), Refills(s) 0, Pharmacy: [facility] #[facility], 162.2, cm, 12/10/23 16:44:00 EST, Height/Length Dosing, 100.6, kg, 12/10/23 16:44:00 EST, Weight Dosing Start Date: 12/10/23 Status: Ordered cholecalciferol 1.25 mg oral capsule (7 sources) Vitamin D Start: 04-14-2024 cholecalcifero l 50,000 intl units oral capsule 1,250 mcg = 1 cap(s), Oral, q7day, # 12 cap(s), Refills(s) 0, Pharmacy: [facility], 162.2, cm, 04/14/24 14:03:00 EDT, Height/Length Dosing, 104.9, kg, 04/14/24 14:03:00 EDT, Weight Dosing Start Date: 04/14/24 Status: Ordered Start: 04-18-2022 End: 08-16-2022 take 1 capsule by mouth once daily at mealtime cholecalciferol 2000 intl units oral capsule 50 mcg = 1 cap(s), Oral, Daily, with food., X 60 day(s), # 90 cap(s), Refills(s) 1, Pharmacy: [facility] #[facility], 163.8, cm, 04/18/22 15:45:00 EDT, Height/Length [...] day(s), # 14 cap(s), Refills(s) 0, Pharmacy: [facility], 167, cm, 08/21/23 14:00:00 EDT, Height/Length [...] Daily, # 90 cap(s), Refills(s) 0, Pharmacy: [facility], 162.2, cm, 03/19/24 15:05:00 EDT, Height/Length Dosing, 103.9, kg, 03/19/24 15:05:00 EDT, Weight Dosing Start Date: 03/19/24 Status: Ordered Start: 12-10-2023 take 1 capsule by [facility] once daily duloxetine 60 mg oral delayed release capsule 60 mg = 1 cap(s), Oral, Daily, # 90 cap(s), Refills(s) 0, Pharmacy: [facility], 162.2, cm, 12/10/23 16:44:00 EST, Height/Length Dosing, 100.6, kg, 12/10/23 16:44:00 EST, Weight Dosing Start Date: 12/10/23 Status: Ordered Start: 08-12-2023 take 1 capsule by [facility] once daily duloxetine 60 mg oral delayed release capsule 60 mg = 1 cap(s), Oral, Daily, # 90 cap(s), Refills(s) 0, Pharmacy: [facility], 163, cm, 10/21/22 13:43:00 EST, Height/Length Dosing, 98.4, kg, 10/21/22 13:43:00 EST, Weight Dosing Start Date: 08/12/23 Status: Ordered Start: 04-18-2022 take 1 capsule by [facility] once daily DULoxetine 60 mg Cap-EC 60 mg = 1 cap(s), Oral, Daily, # 90 cap(s), Refills(s) 3, Pharmacy: [facility] #[facility], 163.8, cm, 04/18/22 15:45:00 EDT, Height/Length Dosing, 93.7, kg, 04/18/22 15:45:00 EDT, Weight Dosing Start Date: 04/18/22 Status: Ordered Start: 05-18-2020 take 1 capsule by [facility] once daily DULoxetine 40 mg oral delayed release capsule 40 mg, Oral, Daily, # 90 cap(s), Refills(s) 1, Pharmacy: [facility], 170.1, cm, 05/18/20 17:03:00 EDT, Height/Length Measured, 112.3, kg, 05/18/20 17:35:00 EDT, Weight Measured Start Date: 05/18/20 Status: Ordered DULoxetine 60 mg Cap-EC (2 sources) Start: 05-02-2022 take 1 capsule by mouth once daily DULoxetine 60 mg Cap-EC 60 mg = 1 cap(s), Oral, Daily, # 90 cap(s), Refills(s) 3, Pharmacy: [facility]/pharmacy #[id number], 163.8, cm, 04/18/22 15:45:00 EDT, Height/Length Dosing, 93.7, kg, 04/18/22 15:45:00 EDT, Weight Dosing Start Date: 05/02/22 Status: Ordered Start: 08-30-2021 take 1 capsule by [facility] once daily DULoxetine 60 mg Cap-EC 60 mg = 1 cap(s), Oral, Daily, # 30 cap(s), Refills(s) 6, Pharmacy: [facility], 170, cm, 08/30/21 14:36:00 EDT, Height/Length Dosing, 89.2, kg, 08/30/21 14:36:00 EDT, Weight Dosing Start Date: 08/30/21 Status: Ordered fluticasone propionate 0.05 mg/actuat metered dose nasal spray (2 sources) Corticosteroid Start: 10-21-2022 take 1 spray(s) nasal route twice daily Flonase 0.05 mg/inh Trout 1 spray(s), Nasal, BID, 16 gram, Refill(s) 0, each nostril, [facility], 163, cm, 12/19/22 13:43:00 EST, Height/Length Dosing, 98.4, kg, 10/21/22 13:43:00 EST, Weight Dosing Start Date: 10/21/22 Status: Ordered Start: 10-26-2020 fluticasone 0. 05 mg/inh Nasal Trout 2 spray(s), Nasal, Daily Congestion, 16 gram, Refill(s) 1, each nostril, [facility] #37, 170, cm, 10/26/20 7:12:00 EST, Height/Length Dosing, 102, kg, 10/26/20 7:12:00 EST, Weight Dosing Start Date: 10/26/20 Status: Ordered fluticasone 0.05 mg/inh Nasal Trout (1 source) Start: 10-26-2020 fluticasone 0. 05 mg/inh Nasal Trout 2 spray(s), Nasal, Daily Congestion, 16 gram, Refill(s) 1, each nostril, [facility] #37, 170, cm, 10/26/20 7:12:00 EST, Height/Length Dosing, 102, kg, 10/26/20 7:12:00 EST, Weight Dosing Start Date: 10/26/20 Status: Ordered hydroCHLOROthiazide 25 mg / lisinopril 20 mg oral tablet (8 sources) Thiazide Diuretic, Angiotensin Converting Enzyme Inhibitor Start: 04-14-2024 hydrochlorothiazide- lisinopril 25 mg-20 mg Tab 1 tab(s), Oral, Daily, 90 tab(s), Refill(s) 0, [facility] #37, 162.2, cm, 04/14/24 14:03:00 EDT, Height/Length Dosing, 104.9, kg, 04/14/24 14:03:00 EDT, Weight Dosing Start Date: 04/14/24 Status: Ordered Start: 03-19-2024 hydrochlorothi azide-lisinopril 12.5 mg-10 mg Tab 1 tab(s), Oral, Daily, 90 tab(s), Refill(s) 0, [facility] #37, 162.2, cm, 03/19/24 15:05:00 EDT, Height/Length Dosing, 103.9, kg, 03/19/24 15:05:00 EDT, Weight Dosing Start Date: 03/19/24 Status: Ordered Incruse Ellipta 62.5 mcg inhalation powder (2 sources) Start: 04-16-2024 Incruse Ellipta 62.5 mcg inhalation powder = 1 inh, Inhalation, q24hr, # 30 blister(s), Refills(s) 2, Pharmacy: [facility] #[facility], 162.2, cm, 04/14/24 14:03:00 EDT, Height/Length Dosing, 104.9, kg, 04/14/24 14:03:00 EDT, Weight Dosing Start Date: 04/16/24 Status: Ordered Mucinex DM 30 mg-600 mg Tab-ER (1 source) Start: 10-21-2022 End: 10-24-2022 Mucinex DM 30 mg-600 mg Tab-ER 1 tab(s), Oral, q12hr Congestion for 3 day(s), 6 tab(s), Refill(s) 0, [facility] #[facility], 163, cm, 10/21/22 13:43:00 EST, Height/Length Dosing, 98.4, kg, 10/21/22 13:43:00 EST, Weight Dosing Start Date: 10/21/22 Stop Date: 10/24/22 Status: Ordered 24 hr nicotine 0.292 mg/hr transdermal system (8 sources) Cholinergic Nicotinic Agonist Start: 03-19-2024 nicotine 7 mg/24 hr Transderm ER Film 1 patch(es), Topical, Daily, 30 EA, Refill(s) 1, [facility] #[facility], 162.2, cm, 03/19/24 15:05:00 EDT, Height/Length Dosing, 103.9, kg, 03/19/24 15:05:00 EDT, Weight Dosing Start Date: 03/19/24 Status: Ordered ondansetron 4 mg oral tablet (10 sources) Serotonin-3 Receptor Antagonist Start: 12-10-2023 take 1 tablet by mouth every eight hours as needed for nausea Zofran 4 mg Tab 4 mg = 1 tab(s), Oral, q8hr, PRN Nausea/Vomiting, # 12 tab(s), Refills(s) 0, Pharmacy: [facility], 162.2, cm, 12/10/23 16:44:00 EST, Height/Length [...] Daily, # 30 cap(s), Refills(s) 0, Pharmacy: [facility] #[facility], 162.2, cm, 04/14/24 14:03:00 EDT, Height/Length Dosing, 104.9, kg, 04/14/24 14:03:00 EDT, Weight Dosing Start Date: 04/14/24 Status: Ordered Completed/Discontinued Medications Medication Drug Class(es) Dates Sig (Normalized) Sig (Original) Blood pressure cuff (3 sources) Start: 08-30-2021 Blood pressure cuff Blood pressure cuff, See Instructions, 1 EA, 0, Please dispense 1 blood pressure cuff., [facility], Supply, 170, cm, 08/30/21 14:36:00 EDT, [...] Facil ity Office Visiton 06-29-2024 Follow-up visit [id number] Diana Zapata 1955 F Date Provider Department Center 06/29/2024 [facility] Family History Problem Relation Age of Onset Atrial fibrillation Mother Diabetes Mother Other Mother Transient ischemic attack Father Stroke Maternal Grandmother Family Status - Relation Status Age at Mother Father Maternal Grandmother Level of Service:29601 NC OFFICE/OUTPATIENT NEW MODERATE MDM 45 MINUTES Normal [facility] General Surgery Office/Clini c Noteon 06-08-2024 General Surgery Office/Clinic Note General Surgery Office/Clinic Note Chief Complaint s/p cholecystectomy HPI Staff Melba is a 69 y.o. female here for s/p cholecystectomy done 05/26/24 Patient presented to [facility] on 05/26/24 with failed heart monitor- [...] department where she was subsequently transferred to [facility] for a pacemaker placement on 05/27/2024. The patient has been doing well. She reports no pain from the operation, and did not require any pain medication. However, she continues to experience soreness from the pacemaker insertion procedure conducted at [facility]. She is scheduled to consult with her prosthodontist who placed the pacemaker in [place] this coming Friday. Review of Systems ROS [...] with voice recognition artificial intelligence software, specifically [employer], [employer] and or [employer]. Substitutions may have occurred due to the inherent limitations of voice recognition and artificial intelligence software. ATTESTATION: Documentation services were performed after patient or guardian consented to allow [employer] to record this visit. MICKY rating specialist and provider reviewed before signing. MICKY: LENARD Burnett. Follow-up No qualifying data available Follow up as needed and to consult with her prosthodontist as regularly scheduled. Problem List/Past Medical History [...] abuse Procedure/Surgic (more content not included)... Normal [facility] Comment on above: Result Comment: Elec tronically Signed By: Mildred CONSTANTINO, Aakash Briones\.br\Date and Time Signed: 06/08/24 08:54 EDT\.br\Electronically Co-Signed By: Hortencia Sterling\Date and Time Co-Signed: 06/04/24 11:16 EDT Office Visiton 06-07-2024 Follow-up visit [id number] Diana Zapata 1955 F Date Provider Department Center 06/07/2024 [facility] [place] [place] Family History Problem Relation Age of Onset Atrial fibrillation Mother Diabetes Mother Other Mother Transient ischemic attack Father Stroke Maternal Grandmother Family Status - Relation Status Age at Mother Father Maternal Grandmother Level of Service:68713 NC OFFICE/OUTPATIENT ESTABLISHED SF MDM 10 MIN Normal [facility] Ambulatory Visit Summaryon 0 06-04-2024 Ambulatory Visit Summary Ambulatory Visit Summary MELBA ZAPATA :1955 Visit Date:06/04/2024 Ambulatory Visit Instructions Your Diagnosis Gall stones Your Care Team Attending Physician - Mildred CONSTANTINO, Aakash Briones Primary Care Physician - Cameron SUGGS, Beatrice Valdez This Is Your Medications List albuterol [...] CONSTANTINO, Antonio Srivastava Where: [facility] [address] [place] [address] [place] [address]- Friday 2:30 PM EDT With: Where: [facility] [address] [place] [address] [place] [address]- 2023 2:00 PM EDT With: Beatrice Ingram Where: [facility] [address] [place] [address] [place] [address]- Medications What How Much When Why Instructions [...] your care. (more content not included)... Normal [facility] 30on 05-29-2024 30 The patient is Moder [...] and maintained or improved Outcome: Progressing Normal [facility] BASIC METABOLIC PANELon 07-2 Anion gap [Moles/Vol] 11 mmol/L Normal - [facility] Comment on above: Performed By: #### L [id number] ####[facility] ([facility])[address] [place] [address] Calcium [Mass/Vol] 8.7 mg/dL Normal 8.6-10.3 [facility] Comment on above: Performed By: #### L [id number] ####[facility] ([facility])[address] [place] [address] Chloride [Moles/Vol] 106 mmol/L Normal 98-107 [facility] Comment on above: Performed By: #### L [id number] ####[facility] ([facility])[address] [place] [address] CO2 [Moles/Vol] 25 mmol/L Normal 21-31 [facility] Comment on above: Performed By: #### L [id number] ####[facility] ([facility])[address] [place] [address] Creatinine [Mass/Vol] 0.80 mg/dL Normal 0.60-1.20 [facility] Comment on above: Performed By: #### L [id number] ####[facility] ([facility])[address] [place] [address] GLOMERULAR FILTRATION RATE ML/MIN/1.73 SQ M.PREDICTED 79.7 mL/min/1.73m*2 Normal >60.0 [facility] Comment on above: Result Comment: [facility]???s estimated glomerular filtration rate (eGFR) will no [...] of individuals. Performed By: #### L [id number] ####[facility] ([facility])[address] [place] [address] Glucose [Mass/Vol] 126 mg/dL High 70-100 [facility] Comment on above: Performed By: #### L [id number] ####[facility] ([facility])[address] [place] [address] Potassium [Moles/Vol] 4.4 mmol/L Normal 3.5-5.1 [facility] Comment on above: Performed By: #### L [id number] ####[facility] ([facility])[address] [place] [address] Sodium [Moles/Vol] 138 mmol/L Normal 136-145 [facility] Comment on above: Performed By: #### L [id number] ####[facility] ([facility])[address] [place] [address] Urea nitrogen [Mass/Vol] 23 mg/dL Normal 7-25 [facility] Comment on above: Performed By: #### L [id number] ####[facility] ([facility])[address] [place] [address] UREA NITROGEN/CREATININE (MASS RATIO) IN SER/PLAS 28.8 Normal [facility] Comment on above: Performed By: #### L [id number] ####[facility] ([facility])[address] [place] [address] CBC WITH AUTO DIFFERENTIALon 05-29-2024 Basophils (Bld) [#/Vol] 0.03 10*3/uL Normal 0.00-0.20 [facility] Comment on above: Performed By: #### L [id number] ####[facility] ([facility])[address] [place] [address] Basophils/100 WBC (Bld) 0.2 % Normal 0.0-1.0 [facility] Comment on above: Performed By: #### L [id number] ####[facility] ([facility])[address] [place] [address] Eosinophils (Bld) [#/Vol] 0.02 10*3/uL Normal 0.00-0.50 [facility] Comment on above: Performed By: #### L [id number] ####[facility] ([facility])[address] [place] [address] Eosinophils/100 WBC (Bld) 0.1 % Normal 0.0-6.0 [facility] Comment on above: Performed By: #### L [id number] ####[facility] ([facility])[address] [place] [address] Erythrocyte distribution width (RBC) [Ratio] 13.0 % Normal 11.5-15.0 [facility] Comment on above: Performed By: #### L [id number] ####[facility] ([facility])[address] [place] [address] ERYTHROCYTE MEAN CORPUSCULAR HEMOGLOBIN CONCENTRATION (G/DL) BY AUTOMATED 32.2 g/dL Normal 32.0-35.0 [facility] Comment on above: Performed By: #### L [id number] ####[facility] ([facility])[address] [place] [address] Hematocrit (Bld) [Volume fraction] 42.6 % Normal 36.0-48.0 [facility] Comment on above: Performed By: #### L [id number] ####[facility] ([facility])[address] [place] [address] Hemoglobin (Bld) [Mass/Vol] 13.7 g/dL Normal 12.0-15.0 [facility] Comment on above: Performed By: #### L [id number] ####[facility] ([facility])[address] [place] [address] Immature granulocytes (Bld) [#/Vol] 0.09 10*3/uL Normal 0.00-0.20 [facility] Comment on above: Performed By: #### L [id number] ####[facility] ([facility])[address] [place] [address] Immature granulocytes/100 WBC (Bld) 0.6 % Normal 0.0-1.0 [facility] Comment on above: Performed By: #### L [id number] ####[facility] ([facility])[address] [place] [address] Lymphocytes (Bld) [#/Vol] 1.22 10*3/uL Normal 1.20-4.00 [facility] Comment on above: Performed By: #### L [id number] ####[facility] ([facility])[address] [place] [address] Lymphocytes/100 WBC (Bld) 8.6 % Low 20.0-45.0 [facility] Comment on above: Performed By: #### L [id number] ####[facility] ([facility])[address] [place] [address] MCH (RBC) [Entitic mass] 31.4 pg Normal 27.0-33.0 [facility] Comment on above: Performed By: #### L [id number] ####[facility] ([facility])[address] [place] [address] MCV (RBC) [Entitic vol] 97.5 fL Normal 82.0-98.0 [facility] Comment on above: Performed By: #### L [id number] ####[facility] ([facility])[address] [place] [address] Monocytes (Bld) [#/Vol] 0.93 10*3/uL Normal 0.10-1.00 [facility] Comment on above: Performed By: #### L [id number] ####[facility] ([facility])[address] [place] [address] Monocytes/100 WBC (Bld) 6.6 % Normal 5.0-12.0 [facility] Comment on above: Performed By: #### L [id number] ####[facility] ([facility])[address] [place] [address] Neutrophils (Bld) [#/Vol] 11.82 10*3/uL High 1.60-7.60 [facility] Comment on above: Performed By: #### L [id number] ####[facility] ([facility])[address] [place] [address] Neutrophils/100 WBC (Bld) 83.9 % High 40.0-72.0 [facility] Comment on above: Performed By: #### L [id number] ####[facility] ([facility])[address] [place] [address] NRBC (PER 100 WBCS) BY AUTOMATED COUNT 0.0 % Normal 0 [facility] Comment on above: Performed By: #### L [id number] ####[facility] ([facility])[address] [place] [address] PLATELETS (10*3/UL) IN BLOOD AUTOMATED COUNT 262 10*3/uL Normal 150-400 [facility] Comment on above: Performed By: #### L [id number] ####[facility] ([facility])[address] [place] [address] RBC (Bld) [#/Vol] 4.37 10*6/uL Normal 3.80-5.00 [facility] Comment on above: Performed By: #### L [id number] ####[facility] ([facility])[address] [place] [address] WBC (Bld) [#/Vol] 14.11 10*3/uL High 4.00-10.60 [facility] Comment on above: Performed By: #### L [id number] ####[facility] ([facility])[address] [place] [address] DSon 05-29-2024 DS Admit Date 05/27/2024 Discharge [...] HYDROcodone-acetaminophen 5-325 mg tablet Commonly known as: [place] lisinopriL-hydrochlorothi azide 20-25 mg tablet nicotine 21 [...] an 69 y.o. female who came from [facility] with concerns for complete heart block. Patient reports this all started when she had broken her wrist, she had EKG done at that time which showed an abnormality leading her to have an echocardiogram done With our cardiology team in [place]. During her appointment to go over her echo results which were normal, her EKG showed that she was in a heart block, so she was prescribed a Holter monitor. Yesterday she presented to [facility] for a planned cholecystectomy 2/2 gallstones. During the procedure it was reported that they had to give her atropine due to low heart rates. Her physician there then received a call with results of her Holter monitor saying that there were signs of complete heart block and requested transfer to [facility] for evaluation by our electrophysiology service. Patient [...] (*) Lymphocytes (more content not included)... Normal [facility] MAGNESIUMon 05-29-2024 Magnesium [Mass/Vol] 2.0 mg/dL Normal 1.9-2.7 [facility] Comment on above: Performed By: #### L [id number] #### [facility] ([facility]) [address] [place] [address] PHOSPHORUSon 05-29-2024 Magnesium [Mass/Vol] 3.1 mg/dL Normal 2.5-5.0 [facility] Comment on above: Performed By: #### L [id number] #### [facility] ([facility]) [address] [place] [address] 30on 05-28-2024 30 The patient is Moder [...] and behaviors that affect risk of falls [place] fall precautions as indicated by assessment Educate [...] and prevent overall improvement and discharge Normal [facility] BASIC METABOLIC PANELon 07-2 Anion gap [Moles/Vol] 11 mmol/L Normal 7-20 [facility] Comment on above: Performed By: #### L [id number] #### [facility] ([facility]) [address] [facility] [place] [address] Calcium [Mass/Vol] 8.5 mg/dL Low 8.6-10.3 [facility] Comment on above: Performed By: #### L [id number] #### [facility] ([facility]) [address] [place] [address] Chloride [Moles/Vol] 107 mmol/L Normal 98-107 [facility] Comment on above: Performed By: #### L [id number] #### [facility] ([facility]) [address] [place] [address] CO2 [Moles/Vol] 23 mmol/L Normal 21-31 [facility] Comment on above: Performed By: #### L [id number] #### [facility] ([facility]) [address] [place] [address] Creatinine [Mass/Vol] 0.83 mg/dL Normal 0.60-1.20 [facility] Comment on above: Performed By: #### L [id number] #### [facility] ([facility]) [address] [place] [address] GLOMERULAR FILTRATION RATE ML/MIN/1.73 SQ M.PREDICTED 76.3 mL/min/1.73m*2 Normal >60.0 [facility] Comment on above: Result Comment: [facility]???s estimated glomerular filtration rate (eGFR) will no [...] individuals. Performed By: #### L [id number] #### [facility] ([facility]) [address] [place] [address] Glucose [Mass/Vol] 104 mg/dL High 70-100 [facility] Comment on above: Performed By: #### L [id number] #### [facility] ([facility]) [address] [place] [address] Potassium [Moles/Vol] 3.6 mmol/L Normal 3.5-5.1 [facility] Comment on above: Performed By: #### L [id number] #### [facility] ([facility]) [address] [place] [address] Sodium [Moles/Vol] 137 mmol/L Normal 136-145 [facility] Comment on above: Performed By: #### L [id number] #### [facility] ([facility]) [address] [place] [address] Urea nitrogen [Mass/Vol] 21 mg/dL Normal 7-25 [facility] Comment on above: Performed By: #### L [id number] #### [facility] ([facility]) [address] [place] [address] UREA NITROGEN/CREATININE (MASS RATIO) IN SER/PLAS 25.3 Normal [facility] Comment on above: Performed By: #### L [id number] #### [facility] ([facility]) [address] [place] [address] CBCon 05-28-2024 Erythrocyte distribution width (RBC) [Ratio] 13.2 % Normal 11.5-15.0 [facility] Comment on above: Performed By: #### L [id number] #### [facility] ([facility]) [address] [place] [address] ERYTHROCYTE MEAN CORPUSCULAR HEMOGLOBIN CONCENTRATION (G/DL) BY AUTOMATED 31.7 g/dL Low 32.0-35.0 [facility] Comment on above: Performed By: #### L [id number] #### [facility] ([facility]) [address] [place] [address] Hematocrit (Bld) [Volume fraction] 43.2 % Normal 36.0-48.0 [facility] Comment on above: Performed By: #### L [id number] #### [facility] ([facility]) [address] [place] [address] Hemoglobin (Bld) [Mass/Vol] 13.7 g/dL Normal 12.0-15.0 [facility] Comment on above: Performed By: #### L [id number] #### [facility] ([facility]) [address] [place] [address] MCH (RBC) [Entitic mass] 30.8 pg Normal 27.0-33.0 [facility] Comment on above: Performed By: #### L [id number] #### [facility] ([facility]) [address] [place] [address] MCV (RBC) [Entitic vol] 97.1 fL Normal 82.0-98.0 [facility] Comment on above: Performed By: #### L [id number] #### [facility] ([facility]) [address] [place] [address] PLATELETS (10*3/UL) IN BLOOD AUTOMATED COUNT 231 10*3/uL Normal 150-400 [facility] Comment on above: Performed By: #### L [id number] #### [facility] ([facility]) [address] [place] [address] RBC (Bld) [#/Vol] 4.45 10*6/uL Normal 3.80-5.00 [facility] Comment on above: Performed By: #### L [id number] #### [facility] ([facility]) [address] [place] [address] WBC (Bld) [#/Vol] 9.28 10*3/uL Normal 4.00-10.60 [facility] Comment on above: Performed By: #### L [id number] #### [facility] ([facility]) [address] [place] [address] Surgical Pathology Reporton 05-28-2024 Surgical Pathology Report [address] [place] [address]- Surgical Pathology Report Collected Date/Time: 05/26/2024 08:23 [...] The mucosal surface is lloyd/pink and velvety. Balance Wheel Arm Burnisher sections are submitted in two cassettes: 1 - Cystic duct 2 - Sections of remainder of gallbladder (DC) DC:[facility] Microscopic Description Microscopic examination performed unless gross only specified. Normal [facility] Comment on above: Performed By: #### [id number] #### [facility] [address] [place] [address] CBC WITH AUTO DIFFERENTIALon 05-27-2024 Basophils (Bld) [#/Vol] 0.05 10*3/uL Normal 0.00-0.20 [facility] Comment on above: Performed By: #### L [id number] #### [facility] ([facility]) [address] [place] [address] Basophils/100 WBC (Bld) 0.4 % Normal 0.0-1.0 [facility] Comment on above: Performed By: #### L [id number] #### [facility] ([facility]) [address] [place] [address] Eosinophils (Bld) [#/Vol] 0.33 10*3/uL Normal 0.00-0.50 [facility] Comment on above: Performed By: #### L [id number] #### [facility] ([facility]) [address] [place] [address] Eosinophils/100 WBC (Bld) 2.8 % Normal 0.0-6.0 [facility] Comment on above: Performed By: #### L [id number] #### [facility] ([facility]) [address] [place] [address] Erythrocyte distribution width (RBC) [Ratio] 13.3 % Normal 11.5-15.0 [facility] Comment on above: Performed By: #### L [id number] #### [facility] ([facility]) [address] [place] [address] ERYTHROCYTE MEAN CORPUSCULAR HEMOGLOBIN CONCENTRATION (G/DL) BY AUTOMATED 32.7 g/dL Normal 32.0-35.0 [facility] Comment on above: Performed By: #### L [id number] #### [facility] ([facility]) [address] [place] [address] Hematocrit (Bld) [Volume fraction] 42.5 % Normal 36.0-48.0 [facility] Comment on above: Performed By: #### L [id number] #### [facility] ([facility]) [address] [place] [address] Hemoglobin (Bld) [Mass/Vol] 13.9 g/dL Normal 12.0-15.0 [facility] Comment on above: Performed By: #### L [id number] #### [facility] ([facility]) [address] [place] [address] Immature granulocytes (Bld) [#/Vol] 0.02 10*3/uL Normal 0.00-0.20 [facility] Comment on above: Performed By: #### L [id number] #### [facility] ([facility]) [address] [place] [address] Immature granulocytes/100 WBC (Bld) 0.2 % Normal 0.0-1.0 [facility] Comment on above: Performed By: #### L [id number] #### [facility] ([facility]) [address] [place] [address] Lymphocytes (Bld) [#/Vol] 2.37 10*3/uL Normal 1.20-4.00 [facility] Comment on above: Performed By: #### L [id number] #### [facility] ([facility]) [address] [place] [address] Lymphocytes/100 WBC (Bld) 20.2 % Normal 20.0-45.0 [facility] Comment on above: Performed By: #### L [id number] #### [facility] ([facility]) [address] [place] [address] MCH (RBC) [Entitic mass] 31.0 pg Normal 27.0-33.0 [facility] Comment on above: Performed By: #### L [id number] #### [facility] ([facility]) [address] [place] [address] MCV (RBC) [Entitic vol] 94.7 fL Normal 82.0-98.0 [facility] Comment on above: Performed By: #### L [id number] #### [facility] ([facility]) [address] [place] [address] Monocytes (Bld) [#/Vol] 0.86 10*3/uL Normal 0.10-1.00 [facility] Comment on above: Performed By: #### L [id number] #### [facility] ([facility]) [address] [place] [address] Monocytes/100 WBC (Bld) 7.3 % Normal 5.0-12.0 [facility] Comment on above: Performed By: #### L [id number] #### [facility] ([facility]) [address] [place] [address] Neutrophils (Bld) [#/Vol] 8.08 10*3/uL High 1.60-7.60 [facility] Comment on above: Performed By: #### L [id number] #### [facility] ([facility]) [address] [place] [address] Neutrophils/100 WBC (Bld) 69.1 % Normal 40.0-72.0 [facility] Comment on above: Performed By: #### L [id number] #### [facility] ([facility]) [address] [place] [address] NRBC (PER 100 WBCS) BY AUTOMATED COUNT 0.0 % Normal 0 [facility] Comment on above: Performed By: #### L [id number] #### [facility] ([facility]) [address] [place] [address] PLATELETS (10*3/UL) IN BLOOD AUTOMATED COUNT 246 10*3/uL Normal 150-400 [facility] Comment on above: Performed By: #### L [id number] #### [facility] ([facility]) [address] [place] [address] RBC (Bld) [#/Vol] 4.49 10*6/uL Normal 3.80-5.00 [facility] Comment on above: Performed By: #### L [id number] #### [facility] ([facility]) [address] [place] [address] WBC (Bld) [#/Vol] 11.71 10*3/uL High 4.00-10.60 [facility] Comment on above: Performed By: #### L [id number] #### [facility] ([facility]) [address] [place] [address] COMPREHENSIVE METABOLIC PANE Joel 05-27-2024 Albumin [Mass/Vol] 3.9 g/dL Normal 3.5-5.7 [facility] Comment on above: Performed By: #### L [id number] #### [facility] ([facility]) [address] [place] [address] ALP [Catalytic activity/Vol] 74 U/L Normal 34-104 [facility] Comment on above: Performed By: #### L [id number] #### [facility] ([facility]) [address] [place] [address] ALT [Catalytic activity/Vol] 22 U/L Normal 7-52 [facility] Comment on above: Performed By: #### L [id number] #### [facility] ([facility]) [address] [place] [address] Anion gap [Moles/Vol] 7 mmol/L Normal 7-20 [facility] Comment on above: Performed By: #### L [id number] #### [facility] ([facility]) [address] [place] [address] AST [Catalytic activity/Vol] 20 U/L Normal 13-39 [facility] Comment on above: Performed By: #### L [id number] #### [facility] ([facility]) [address] [place] [address] Bilirubin [Mass/Vol] 0.6 mg/dL Normal 0.3-1.0 [facility] Comment on above: Performed By: #### L [id number] #### [facility] ([facility]) [address] [place] [address] Calcium [Mass/Vol] 8.8 mg/dL Normal 8.6-10.3 [facility] Comment on above: Performed By: #### L [id number] #### [facility] ([facility]) [address] [place] [address] Chloride [Moles/Vol] 106 mmol/L Normal 98-107 [facility] Comment on above: Performed By: #### L [id number] #### [facility] ([facility]) [address] [place] [address] CO2 [Moles/Vol] 30 mmol/L Normal 21-31 [facility] Comment on above: Performed By: #### L [id number] #### [facility] ([facility]) [address] [place] [address] Creatinine [Mass/Vol] 0.90 mg/dL Normal 0.60-1.20 [facility] Comment on above: Performed By: #### L [id number] #### [facility] ([facility]) [address] [place] [address] GLOMERULAR FILTRATION RATE ML/MIN/1.73 SQ M.PREDICTED 69.2 mL/min/1.73m*2 Normal >60.0 [facility] Comment on above: Result Comment: [facility]???s estimated glomerular filtration rate (eGFR) will no [...] individuals. Performed By: #### L [id number] #### [facility] ([facility]) [address] [place] [address] Glucose [Mass/Vol] 94 mg/dL Normal 70-100 [facility] Comment on above: Performed By: #### L [id number] #### [facility] ([facility]) [address] [place] [address] Potassium [Moles/Vol] 3.7 mmol/L Normal 3.5-5.1 [facility] Comment on above: Performed By: #### L [id number] #### [facility] ([facility]) [address] [place] [address] Protein [Mass/Vol] 6.2 g/dL Normal 6.0-8.3 [facility] Comment on above: Performed By: #### L [id number] #### [facility] ([facility]) [address] [place] [address] Sodium [Moles/Vol] 139 mmol/L Normal 136-145 [facility] Comment on above: Performed By: #### L [id number] #### [facility] ([facility]) [address] [facility] [place] [address] Urea nitrogen [Mass/Vol] 21 mg/dL Normal 05-27 [facility] Comment on above: Performed By: #### L [id number] #### [facility] ([facility]) [address] [place] [address] UREA NITROGEN/CREATININE (MASS RATIO) IN SER/PLAS 23.3 Normal [facility] Comment on above: Performed By: #### L [id number] #### [facility] ([facility]) [address] [place] [address] CONSULTon 05-27-2024 CONSULT ----- ----- Attestation signed [...] not have recordings from her monitor in [facility] or during the surgery. Examination is unremarkable. Echo from 05/04/2024 showed moderate left ventricle hypertrophy but normal left ventricle systolic function mildly elevated PAP Plan: Continue to monitor rhythm. I think we should obtain the rhythm strips from [facility] and review to confirm that she had second-degree AV block with significant bradycardia as reported. Apparently Dr. Gaston was called in that regard and we will check with him if he reviewed those strips. Will check thyroid function. Consider sleep study in the future Dianne Benson MD, [facility] ----- Cardiology Consult Note Reason for Consult: complete heart block HPI: Melba Zapata is a 69 y.o. female with Pmh of smoking, depression, HTN, who was transferred from [facility] for cardiology evaluation d/t concern for heart [...] she was called to be admitted to [facility] for PPM placement. She also happened to [...] not crush or chew. Past Week HYDROcodone-acetaminophen ([place]) 5 (more content not included)... Normal [facility] ED Clinical Summaryon 2023 ED Clinical Summary ED Clinical Summary [address] [address] ED Clinical Summary Person Information Name: MELBA ZAPATA/[facility] Age: 69 Years : 1955 Sex: Female Language: [place] PCP: Beatrice Ingram Marital Status: Visit Id: [...] 05/27/2024 09:55:08 05/27/2024 09:55:08 05/27/2024 09:55:08 ADDRESS: [address] [place] [phone] [facility] DOC NOTES: MEDICAL INFORMATION: Prescriptions Given: Medications to Continue with No Changes Other Medications acetaminophen-hydrocodone (Ellenton 325 mg-5 mg oral tablet) 1 Tablets By Mouth every 6 hours as needed as needed for pain. Refills: 0. PATIENT EDUCATION INFORMATION: Instructions: Follow up: DIAGNOSIS: 1:Complete heart block; 2:Dizziness; 3:Lightheaded Normal [facility] ED Patient Education Noteon 05-27-2024 ED Patient Education Note ED Patient Education Note Normal [facility] ED Patient Summaryon ED Patient Summary ED Patient Summary [address] [address] Patient Discharge Instructions Person Information Name: MELBA ZAPATA Age: 69 Years Arrival Date: 05/26/2024 12:32:31 Discharge Diagnosis: 1:Complete heart block; 2:Dizziness; 3:Lightheaded Primary Care Physician: Beatrice Ingram Provider Information Primary Provider: Tony Edmondson DO Advanced Wedger:Malcolm Greenwood PA-C The exam and treatment you received in the Emergency Department were for an urgent problem and are not intended as complete care. It is important that you follow up with a doctor, nurse practitioner, or physician?s insurance account assistant for ongoing care. If your symptoms [...] opioids can be used to help relieve fxwregxq-tw-kttfgx pain and are often prescribed following a [...] be struggling with addiction, tell your health nonfarm animal caretaker and ask for guidance or call SAM[employer]?S National Helpline at 3-090-227-HELP. v Source: [place] Department of Health and Human Services/Center for Disease Control & Prevention [facility] (more content not included)... Normal [facility] Main OR Intraoperative Recor don 05-27-2024 Main OR Intraoperative Record Main OR Intraoperative Record IntraOp Document Type FT Summary Primary Physician: Aakash Levy MD Finalized Date/Time: 05/27/24 09:04:31 Pt. Name: MELBA ZAPATA/Sex: 1955 Female Med Rec #: [id number] Physician: Mildred CONSTANTINO, Aakash Briones Financial #: [id number] Pt. Type: A Room/Bed: [place] [address] Admit/Disch: 05/26/24 05:56:56 - 05/26/24 11:10:00 Institution: [...] AT 0828. SURGEON AT [employer] FROM [id number].ALHAJI MAGANA. 05/27/24 Chart opened to review and send charges [facility]FA Case Attendance FT Entry 1 Entry 2 Entry 3 Case Attendee Haroon CHAMBERS, Aakash Levy MD, Aakash Martines EYE SURGEONScout Role Performed Anesthesiologist Surgeon - Primary EYE SURGEON/SA E Learning Manager Time In 05/26/24 07:37:00 05/26/24 07:37:00 05/26/24 07:37:00 Time Out 05/26/24 08:51:00 05/26/24 08:51:00 05/26/24 08:51:00 Procedure CHOLECYSTECOMY ROBOT CHOLECYSTECOMY ROBOT CHOLECYSTECOMY ROBOT ASSISTED(.) ASSISTED(.) ASSISTED(.) Comments IS SUPERVISING Last Modified By: Arelis Vila Kelsie E Burgderfer, Kelsie E 05/26/24 08:55:59 05/26/24 08:55:59 05/26/24 08:55:59 Entry 4 Entry 5 Case Attendee Arelis Vila LPN, Jessica D Role Performed Diamond Picker - Primary Scrub - Primary Time In [...] and tissue Entry 1 Skin Integrity Intact, [place], Warm, & Skin Abnormality No Dry Outcomes Met? Yes Last Modified By: Arelis Vila 05/26/24 07:16:00 Post-Care Text: The patient is free from signs and symptoms of injury caused by extraneous objects Patient Positioning FT Pre-Care Text: Identifies physical alterations that (more content not included)... Normal [facility] TROPONIN Ion 05-27-2024 Troponin I.cardiac [Mass/Vol] 0.00 ng/mL Normal 0.00-0.04 [facility] Comment on above: Performed By: #### L [id number] ####[facility] ([facility])[address] [place] [address] TSH3 REFLEX TO FT4on 024 THYROTROPIN (MIU/L) IN SER/PLAS BY DETECTION LIMIT <= 0.05 MIU/L 0.43 mIU/L Normal 0.34-5.60 [facility] Comment on above: Performed By: #### L [id number] #### [facility] ([facility]) [address] [place] [address] CHEMISTRYOrdered By: SYSTEM SYSTEM on 05-26-2024 Troponin [...] Instructions For Use, Saul Sam, June 2018) Anion gap [Moles/Vol] 11 mmol/L [...] 33.5 s Normal 25.1 - 36.5 second(s) [facility] Comment on above: Interpretive Data: [...] the same coagulation reagent and instrumentation as [facility]. Currently there are no coagulation studies available worldwide for children to 14 days, and no normal ranges. Heparin therapeutic range (represented by Anti-Factor Xa activity of 0.2 - 0.4 U/mL) corresponds to PTT of 56.6 - 109.0 sec. INR Coag (PPP) [Relative time] 1.14 {INR} Invalid Interpretation Code [facility] Comment on above: Interpretive Data: I NR results are specifically intended to assess patients stabilized on long-term Anticoagulation therapy suggested INR s Less Intensive Anticoagulation 2.0 3.0 Conventional Range 3.0 4.5 PT Coag (PPP) [Time] 12.8 s High 9.4 - 12.5 second(s) [facility] Comment on above: Interpretive Data: [...] the same coagulation reagent and instrumentation as [facility]. Currently there are no coagulation studies available [...] EDT With: Mildred CONSTANTINO, Aakash Briones Where: [facility] [place] [address] [place] [address]- Friday 2:00 PM EDT With: ALFREDO CONSTANTINO, Antonio Srivastava Where: [facility] [address] [place] [address]- Friday 2:30 PM EDT With: Where: [facility] [address] [place] [address]- 2023 2:00 PM EDT With: Beatrice Ingram Where: [facility] [address] [place] [address]- New Follow Up Appointments after Discharge Follow Up with Aakash Levy When: Comments: Appointment has already been scheduled Where: [address], [address] [facility] [address] [place] [address]- [phone] Business (1) Medications What How Much When Why Instructions Next Dose New acetaminophen-hydrocodone ([place] 325 mg-5 mg oral tablet) 1 Tablets By Mouth Every 6 hours as needed for as needed for pain Gall stones Pickup at [facility] Unchanged albuterol (Albuterol (Eqv-ProAir HFA) 90 [...] needed for Nausea/Vomiting Worsening headaches Pharmacy Information [facility]: [address] [place], [place] [phone] Allergies Contrast Dye (Swelling, Hives) adhesives (redness) [...] these instructions at home: Medicines ? Take [id number] and prescription medicines only as told by [...] keep your urine pale yellow. ? Take pcaq-[id number]-ktehvpj or prescription medicines. ? Eat foods that [...] and water (more content not included)... [facility] Comment on above: Result Comment: Amy oviedoally Signed By: Everett MANE, Kateryna Meredith\.kyler\Date and Time Signed: 05/26/24 09:43 EDT Documentationon 05-26-2024 Documentation [id number] Diana Zapata florinda [place] 1955 F Date Provider Department Center 05/26/2024 Yassine-DEBBIE SIGALA [facility] Family History Problem Relation Age of Onset Atrial fibrillation Mother Diabetes Mother Other Mother Transient ischemic attack Father Stroke Maternal Grandmother Family Status - Relation Status Age at Mother Father Maternal Grandmother Normal [facility] ED Note-Physicianon 05-26-20 ED Note-Physician ED Note-Physician Basic Information Time Seen: Malcolm Greenwood PA-C 05/26/2024 13:02 Chief Complaint Pt has been wearing heart monitor the past month. Gallbladder surgery this morning with Dr. Levine. [place] called her wiht results of heart monitor [...] Levy. Right afterwards she was called by [facility] with the results of her heart monitor [...] and discussed the patient's case with her prosthodontist YOVANY Mejia who was able to fax over the Holter results that demonstrated complete heart block. Ms. Mejia also stated that Dr. Mckay the head prosthodontist wants the patient transferred for pacemaker placement at [facility]. We initiated transfer to [facility] and I spoke with Dr. Queen hospitalist [...] in multi (more content not included)... [facility] Comment on above: Result Comment: Elec tronically [...] 05-26-2024 Inpatient Patient Summary Inpatient Patient Summary [address] [address] [facility] Clinical Discharge Instructions PERSON INFORMATION Name: MELBA ZAPATA [facility]#:[id number] PHYSICIANS Admitting Physician: Aakash Levy MD Attending Physician: Aakash Levy MD PCP: Beatrice Ingram Discharge Diagnosis: Comment: PATIENT EDUCATION INFORMATION Instructions: Minimally Invasive Cholecystectomy, Care After Medication Leaflets: Follow up: With: Address: When: Aakash Levy [address], [facility] [address], [facility] [address] [place] [address] [phone] Business (1) Comments: Appointment has already been scheduled Type Location Start Finish State GS Post Op 15 [facility] 06/04/2024 8:20 AM 06/04/2024 8:40 AM Confirmed URO New Patient [facility] [place] 07/12/2024 2:00 PM 07/12/2024 2:15 PM Confirmed FM Medicare Wellness Subsequent [facility] 07/13/2024 2:30 PM 07/13/2024 3:30 PM Confirmed FM Open [facility] 07/15/2024 2:00 PM 07/15/2024 2:20 PM Confirmed MEDICATION LIST New Medications [facility], [address] [place], [place] [id number], [phone] acetaminophen-hydrocodone ([place]enton 325 mg-5 mg oral tablet) 1 Tablets [...] needed Nausea/Vomiting. Refills: 0. Comment: Di Niko [facility] Main OR PACU I Recordon 05-04 Main OR PACU I Record Main OR PACU I Record PACU Phase I Document Type FT Summary Primary Physician: Aakash Levy MD Finalized Date/Time: 05/26/24 10:11:37 Pt. Name: BENNYMELBA/Sex: 1955 Female Med Rec #: [id number] Physician: Aakash Levy MD Financial #: [id number] Pt. Type: A Room/Bed: [facility] Admit/Disch: 05/26/24 05:56:56 - Institution: Case [...] Signed By: Suzy Solis RN 05/26/24 10:11 [facility] Main OR PACU II Recordon Main OR PACU II Record Main OR PACU II Record PACU Phase II Document Type FT Summary Primary Physician: Aakash Levy MD Finalized Date/Time: 05/26/24 11:28:51 Pt. Name: BENNYMELBA./Sex: 1955 Female Med Rec #: [id number] Physician: Aakash Levy MD Financial #: [id number] Pt. Type: Room/Bed: [place] [address] Admit/Disch: 05/26/24 05:56:56 - Institution: Case Times [...] By: Kateryna Floyd RN 05/26/24 11:28 [facility] Operative Reporton 4 Operative Report Operative Report Indication for Surgery 69 y/o female with symptomatic cholelithiasis here for robotic cholecystectomy Preoperative Diagnosis GALLSTONES Postoperative Diagnosis GALLSTONES Operation CHOLECYSTECOMY ROBOT ASSISTED, ROBOT ASSISTED LAPAROSCOPIC CHOLECYSTECTOMY, . Surgeon(s) Aakash Levy MD (Surgeon - Primary) E Learning Manager Miki Anesthesia General Campbell Scout Eddy DO (Structural Engineer) Leopoldo Carias (Anesthesiologist E Learning Manager) Aakash John (Anesthesiologist E Learning Manager) Estimated Blood Loss 5.0 mL Urine Output [...] x2 Patient tolerated the procedure: yes [facility] Comment on above: Result Comment: Elec tronically Signed By: Mildred CONSTANTINO, Aakash Briones\.br\Date and Time Signed: 05/26/24 09:09 EDT Outpatient Surgery Discharge Instructionon 05-26-2024 Outpatient Surgery Discharge Instruction Outpatient Surgery Discharge Instruction [place] [id number] Patient Discharge Instructions PERSON INFORMATION Name: MELBA [...] Follow up: With: Address: When: Aakash Levy [address] [place] [address], [place] [address], [address] [address] [phone] Business (1) Comments: Appointment has already been scheduled Type Location Start Finish State GS Post Op 15 [facility] 06/04/2024 8:20 AM 06/04/2024 8:40 AM Confirmed URO New Patient [facility]RE[facility] [place] 07/12/2024 2:00 PM 07/12/2024 2:15 PM Confirmed FM Medicare Wellness Subsequent [facility] 07/13/2024 2:30 PM 07/13/2024 3:30 PM Confirmed FM Open [facility] 07/15/2024 2:00 PM 07/15/2024 2:20 PM [...] to serve you. Thank you for choosing [facility] HERE ARE THE MEDICATION CHANGES THAT OCCURRED DURING YOUR HOSPITAL STAY New Medications [facility], [address] [place] [id number], [phone] acetaminophen-hydrocodone ([place] 325 mg-5 mg oral tablet) 1 Tablets [...] these instructions at home: Medicines ? Take dlqd-rwr-anpvnlm and prescription medicines only as told by [...] pale ye (more content not included)... [facility] Troponin 1 Hr.on 05-26-2024 Troponin HS 3.60 pg/mL Low 10.10-27.10 [facility] Comment on above: Result Comment: The 95% CI (Confidence Interval) PPV (Positive Predictive Value) for myocardial infarction in females is 38 pg/mL, in males 51 pg/mL. The results should be used in conjunction with clinical conditions of myocardial infarction. (Access High Sensitivity Troponin I Instructions For Use, Mytonomy, June 2018) Performed By: #### 1 [id number] #### [facility] [address] [place] [address] 36on 05-25-2024 36 Regarding critical reports on event monitor from 05/22/2024: NETO Li MA Nicole please call her and see how she is feeling, I don't think its really 3rd degree block- But would like to know what Rafita thinks- Dr. Puentes, can you please take a look at these reports that are scanned into her media professional? Normal [facility] Office Visiton 05-14-2024 Follow-up visit [id number] Diana Zapata 1955 F Date Provider Department Center 05/14/2024 Yassine-DEBBIE SIGALA [facility] Family History Problem Relation Age of Onset Atrial fibrillation Mother Diabetes Mother Other Mother Transient ischemic attack Father Stroke Maternal Grandmother Family Status - Relation Status Age at Mother Father Maternal Grandmother Level of Service:49529 NC OFFICE/OUTPATIENT ESTABLISHED MOD MDM 30 MIN Normal [facility] Pulmonary Function Studieson 05-01-2024 Pulmonary Function Studies [...] BY: Kalani Caballero M.D. ca Dictated: 04/25/2024 [id number] Transcribed: 04/27/2024 cc:IFEANYI Manjarrez [facility] Comment on above: Result Comment: Elec tronically Signed By: Federico CONSTANTINO, Kalani Schafer\.br\Date and Time Signed: 05/01/24 14:53 EDT Coding Summary.on 04-28-2024 Coding Summary. ILFDVmtb22OSs6zFx+PG hlYWQ +ZH5YMJQeO78nzOYpoE5sQ0HV TElOSywgQVBQTElOSyIgbmFtZ G4peJUmPFQe IC8+LP1gZBXmNsvqoAWpi8K2x AX5V15poo1oIQukpWK3JETtLh Zcqfees5fbhPn7PSwmNekzYiE t KULmiO75IUD8jU32Zh42iIByx WHfn1vjoQc1XqAgPBToCGS4zZ bqVXaep6ZbPUSmU98gyWDkz3L 6 YSVrcCqauEYxMzLauXW4dH8yN Ustaasrm6srcpnwRzz9bb06iB Hph0C0uBO8Y2JdimJ2IMEduMT g ItuqkAMTlV3dgxepm3bipanuJ oOcQTFqVBs1BLh0UHAauVgnLy DmCI29BWU1NYWfqbNmO6TeXVT s tCtpCeN8z1V7Er1CI9YASalrY 1VNTUFSWTwvdGQ+OY81rm07V6 WqAsizXnr2CSWbEPA8oVG1vQ3 n CNYxFQhrw2F6nLP5B0OvblLih n9vo8wcBOEcVIcqF01zhBWgo6 Y2GTUzyPM9NPCbuRioYhCwfG8 3 Oyc+ZCGheGjpm9MhRbbtl2scu 0lgoTo8RbafMYWvtlSscSzdTV E7k6VpYh5hHKJebZR0kOF3yD2 i SwTyQiD4JZwpJ938HsTysCWpK vwiF31tI3SnwSZ+KPJzCcw4YI QmtWyySP4cB4YgTXNfjvhiyKT m hNveEA8tLACjjehgFMKrmF6fT LFsH1k9JeOiAqN4EOxzZ2FcGQ RvddouYc18iP4rEdDhCsF5QJo u F2BdfhV2KVDhhSIrIHvbBYX3L 58em2W4POTvUEBqPVC0gRJ3xB 1hbGlnbjogbGVmdDsgdmVydGl j JWxrWWjgQ663QJOcwSjwDgVkW GluZyBEYXRlOiAgMDYvMjYvMj AyNDwvdGQ+IPIiWYK0pEhjVBP n tYIzUCciZw2jtVgqsXlrSA9mP EEluqjcFLQxjM7tFAYivSFeoN wdCT9sXCGebmkkw967ZhVhGPS 0 GLFhfJTpX0XplS5eEjXdRZMsB NLbD2FclPCqQQxkH189FEswXg Y5SLHbwwUjO9XyLLZcaXtiAdH 0 c5C1Li0Wp4MhdgjyY1MqhLTbJ uXlXhzcFTd1C8KlRncquOA+PC 80TCRpUD66TXi4BXI2xFkbQFp i DHUvN3TdkS9wWpYkDDFkCWBxG yc+PHRhYmxlIHdpZHRoPScxMD JgQzAcnUwjQO4eCm2fHPCvEHB v yBkqwFScAiGoz1jdIODbDOqpZ L4irTarJ3SxmOS4TYHcw0v9Bp 04M80qC6YmrDX+PPBvpDE8bBD 0 fX3xYkBcVhH7WOehI041BiYfb CJxQqtjo8uea4rpqLo5KjX2HZ AvynUpgRluJYM3a1VyBp28K47 s IHdpZHRoPSIxNSUiIHZhbGlnb z2blO2qQf6+WXQweRU3yFS4bM 8eNjHbNiC3YYfoO477XsIotHH v Otqdl2moj6pbbIe0UpDzWREtm rJtpWerNGS4p6WuOd01W6AjlN thj8PpBui4nx14fRYam0L3wRT 9 X4LlMNTerihjqWNleBgqFI6gX WTcnumqYZZfjG4kQVNfZ3i5Mn RcWiO2FHyhI1ZupeI0YMBbcYS g FOCfmWRDlL1tpckfg7gmmbwiF zDgJELvOTr4CZr4RMIrtKgzYv HvZWQ3OfF7NHH1bONgkH1hqGs n ohyitW9qDhw+QGJ0bONprLGDN R4iZmrjcQH+HELwGFQ0jDacPX kqXQCaeS1wIITfA5n9LgUzJeZ 1 BIsiF1EccvY0EWRrhAVfNFIah RVLmZ9qhbmpl6skzmleTsGqNU GlZZw1SDu6MPGtlAcsGqUxVYC 0 TiE7QJC9aXUvdT3ioWlvjpqqm G9wOyc+RjedvLpgJYD4ZOk5L7 DvArm2KTLtgUubTE8lsTViDLl u Ub1mzMedoLqaJJ8yQYDhavaea 646SnTme1jxMJDumYWnIWpzWO Z2F20yz2V7MRHzOCWuMSP3uHQ 4 uC8rnEnqoxabwQUpjAsijeVyb CbqZWvvQUrdA135YTJxfJsvRx HgFEy3P1XwCjv1LGGobJsuOC7 n jXQbXRueUv7kpXdjwHveVG5wQ SPpdpxbo017MsJdh7piRMCjbH NzNRsqCJS4X75mv6H8FABzDHW w JGQ8yOM2kT4yaAsvtzqdgZEst IsrafLrqUdyFLtrQUglJ810OD AwpDwnUqMgrKp9M6WuEtu0GCT z jXtyKJ4saIRsPJnqWa3wtUgao GcwYQ4rATWjcgtsb492IqJgq7 rmLEWzuASrOOxtZFC3N07yw0D 6 MUYmYZXnLTA1eLS4cZ2odKhsq jogbGVmdDsgdmVydGljYWwtYW ssG272ETVsfJfuFkEjkOceffO g YTxdYLo7F3NsIayhwRS+PC90Y OSgXQ43nBLneVTis9zuuMd0Wn FyQUOyAHP8gVaqJRrph3WnMHF t U74ikNQru0G9PYSqeLlkzYQvY dMczCZ5rA4gFYiskbvqi1evim qmJecrx3dnra97eN04K90oIJk p CZSeBROnDSEnGYXqeQvfkj3yr G9wIi8+PYXqrSJ4iIS5bW8vTR JuWlV6LZumE740EdWqySJyFdn j c6nku5dkmEu1KhH6SGYtmjLxi WmhTEF0t0IcMr34E73lZLxfRA MsIDCwOAXsCSQquByyrk2lcT0 w Ii8+SONdbIX0fTR2cE2eEvYbF uJ0KKjlR884AfZrkAPqEhqoY8 9oT2SclNA+BRMqGzz5VGFvwWu s XK2riLMpPVicXr7vSER6XoHoY hJtFNdbT1ZiAEKcnbbaxiojuN K1PCWyAONsbE22Yd2rnKfnXRN w lYRAoU6qvfsgy9jtuppqRuCcX BZvLAq3CJy7IGXagOhbIiTsCX N9UdA0CIL6cSMswV4bgQnacrt g vZ2pO5DpRBUedjucXc87sE2kX gHkJuO9OCnsNwu+H8lKPDgvLY ZBTEVSSUUgQTwvdGQ+PHRkIHN 0 oPvgMVblPYYypU9oKRZjU3u4N lMbIsG9SJyzS0ImMUDztdrsAv 26aM0fRjLcOgM9UDbeL2DxjcK 6 YRHaiZBmRTlrIGT9D85ni3G6W QDfNXGkZYM3uFV1tC9gaXujyf ogbGVmdDsgdmVydGljYWwtYWx p V516BUTcbXgwBmI5ZdQdJkR1R OD1O6BnEdy0ZYZipBipZH5aiW XmKGupVz3bqBowkKhhUI2pVYW p xsatAGDxiW5xAKTkpRHoiJksR X6vYJUpkocnu920UePwITI6GK QkzYBwS8LzrZ1jMhPcVWZpJHI w G8GreHRyGUhcZ155BClcJtO1Y QTjfkHcA1BhDRSbaMjoAnR3l9 U4Ay00AYXVYRQrjqdibNL+PHR k EME4vSkgPFydEDUfaM3aFCCrK 4o3PrChHeG7INzhL3IgVAGbyx nlCv32tV2iJjOvTjM6WOhkP0A v hgH8ZVRxnTQhNJjaYUU3S84eg 1J1ISYlCHFeVME1mCT8jX7qtZ lnbjogbGVmdDsgdmVydGljYWw t BDiwX540XCYdxMqvFzLknDSrU TwvdGQ+XQHqMOT0cUcnHKhsNJ JryV8eGZPuK0d3RrXaKlA3TBa u B1JjUPPpwbbyXy61zN7bTrNcH zL8ZKeqA3TyqiR1FAGjqFZjIE kbSRS2I90cu4V2YUShDFVqPAX 7 wYB2wC4ttXgzyoyxrZPsyFcgq nTvpGfrZIegRRijR015VVHrnM pyOw17zZVevJgxqxP0F5ZoHgh v dHI+MW75VNLoXI91dTQdqONiw 6opsVf4SbQwEPFzTYV7tWgfEO lkv8TxAJVnQ43njQRvz5M8XKE v jMlfeBVcOcFjlFZ3wS0aWEivs kgqi1goleutTnirc7fzcj35lW 88S52uYYxtHHViXODvHLLoUHN h dFgybd3waU9jFu5+AXLjcFS4f MI4aW0kCiPrAsP0VLjkA033Th KomKLhVwusx6cur6axfCd1SzN w WVClxzIoeDwyUEC5f9WkWe00F 29sIHdpZHRoPSIyMCUiIHZhbG gtzg4cfJ1mHy9+XD3zh7ykeq1 1 rU22hZU+PMCyIXF5rJtmXJjdM HVbiY0fOTlpHoF1CBImHqPlpU 06tINfVRsjFz8leAbrnIclLX6 w HUTrxukoo467TkLsj6ktQWSdy CIgRLzcVAP8K98mj9Q2UEFzYD ObGRE3sSC9cX4qlBfpphtgjLU m oBbfetRckYjrHElqKBfkS807H HAmqYiiAjLlqLGjR5qcsyNAOP 1lOjwvdGQ+LNXdLKR2vZsuANf w KJVwdF3zQGYlX1t9BjXuOvO3N QhzH2OmezS5HTYxuEQqWIDdwN OEdF7obsfyt5felqhxKmKsTUX w UUi7HCe6SANkxVemFeQlQTC0J mE1CHG2cACwaM7pqIzxgijocT 9wOyc+RklOOjwvdGQ+PHRkIHN 0 wHwbXUafDJKjqU0aBQUrA5o6M lPmPkY1VZpbD6SxluZ2NEZwkQ WwRIXrxPOEoC0txqwji9crjdu g VcFyFCOiQIg4YHs3LLVocIubZ xUjGRM0LkY3CIE0lDVtlV7isS swiduosG7dScj+TVJOOjwvdGQ + SHSeLEU1nWbnWIjbEYMriB3hO QVbS0y1TbKzVjB5RImvP4Jrcq Y7LKMfnOKaDIVozDCUgM5uwni j n9hptpevXdRwEOZsROv9IZl7E NFajPobHcXcNWV4QgT6QGN3vE GszD1srEmovxfbxB8dKhs+UGF 5 NUA2TC24NN33K0UfFkqmcQTyi +PHRhYmxlIHdpZHRoPScxMD ItBuOknNlbGA2pJh8nAFClGTY v bGxhcHNlOiBjb (more content not included)... Normal [facility] Consent for Procedure/Surger yon 04-28-2024 Consent for Procedure/Surgery [id number]#1.00TIFF [facility] Ambulatory Visit Summaryon 0 04-27-2024 Ambulatory Visit [...] EDT With: Mildred CONSTANTINO, Aakash Briones Where: [facility] General Surgery [place] Invalid Interpretation Code [address] [place] [address] [place] [address]- \.br\ Friday 2:30 PM EDT \.br\ With:\.br\ Where: [facility] Primary Care [facility] General Surgery Office/Clini c Noteon 04-27-2024 General Surgery Office/Clinic Note Chief Complaint 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 female here [...] with voice recognition artificial intelligence software, specifically Egenera, Childcare Bridge and or Dragon Ambient Experience. Substitutions may have occurred due to the inherent limitations of voice recognition and artificial intelligence software. ATTESTATION: Documentation services were performed after the patient or guardian consented to allow Harmony Michelle eXperience to record this visit. MICKY rating specialist and provider reviewed before signing. MICKY: [...] reduction of frac (more content not included)... [facility] Comment on above: Result Comment: Elec tronically Signed By: Mildred CONSTANTINO, Aakash Briones\.br\Date and Time Signed: 04/27/24 16:19 EDT\.br\Electronically Co-Signed By: Lillian Osborne\.br\Date and Time Co-Signed: 04/27/24 15:28 EDT Consent for Treatmenton 04-03 Consent for Treatment [id number]#1.00TIFF [facility] Pulmonary Function Testson 0 04-21-2024 Pulmonary Function Tests [id number]#1.00TIFF [facility] Consent for Immunizationon 0 04-15-2024 Consent for Immunization [id number]#1.00TIFF [facility] Family Medicine Office/Clini c Noteon 04-15-2024 Family [...] EKG when she underwent wrist surgery. Her prosthodontist in [place] deemed her EKG to be acceptable at [...] 39. (more content not included)... Normal [facility] Comment on above: Result Comment: Elec tronically [...] CONSTANTINO, Antonio Srivastava Where: [facility] Invalid Interpretation Code [address], [place] [address]- \.br\ 2023 2:00 PM EDT \.br\ With: Beatrice Ingram\.br\ Where: [facility] Primary Care [facility] Ambulatory Visit Summary MELBA ZAPATA :1955 Visit [...] CONSTANTINO, Antonio Srivastava Where: [facility] [place] Invalid Interpretation Code [address], [place] [address]- \.br\ 2023 2:00 PM EDT \.br\ With: Beatrice Ingram\.br\ Where: [facility] Primary Care [facility] Patient Educationon 04-14-20 Patient Education Blood Pressure [...] provider. Document Revised: 07/04/2022 Document Reviewed: 07/04/2022 ElseCom[employer] Patient Education ? 2022 [employer] Cardiovascular Hypertension, Adult High blood pressure [...] r (more content not included)... Normal [facility] CT Chest, Low Dose Screening on 04-07-2024 [...] M.D. Transcribed by: PRIMO Technologist: KRYSTIN [facility] US Abdomen Completeon 2023 US Abdomen Complete [...] DO Transcribed by: PRIMO Technologist: JEAN PAUL [facility] C Urineon 04-04-2024 Bacteria identified Cx Nom [...] Locations R1: This test was performed at: [facility], [address] [place] [address], [id number], [facility] Comment on above: Performed By: #### 2 [id number] #### [facility] [address] [place] [address] Performed By: #### 2 [id number] ####[facility] [address] [place] [address] CBC w/ Auto Diffon 4 Basophils/100 WBC (Bld) 0.7 % Normal 0.0-2.0 [facility] Comment on above: Performed By: #### 2 [id number] #### [facility] [address] [place] [address] Basophils/Leukocyte s Auto (Bld) [Pure # fraction] 0.1 E9/L Normal 0.0-0.2 [facility] Comment on above: Performed By: #### 2 [id number] #### [facility] [address] [place] [address] Eosinophils (Bld) [#/Vol] 0.4 E9/L Normal 0.0-0.5 [facility] Comment on above: Performed By: #### 2 [id number] #### [facility] [address] [place] [address] Eosinophils/100 WBC (Bld) 4.2 % Normal 0.0-8.0 [facility] Comment on above: Performed By: #### 2 [id number] #### [facility] [address] [place] [address] Erythrocyte distribution width (RBC) [Ratio] 13.3 % Normal 10.9-14.2 [facility] Comment on above: Performed By: #### 2 [id number] #### [facility] [address] [place] [address] Hematocrit (Bld) [Volume fraction] 46.7 % High 34.0-46.0 [facility] Comment on above: Performed By: #### 2 [id number] #### [facility] [address] [place] [address] Hemoglobin (Bld) [Mass/Vol] 15.9 g/dL Normal 12.0-16.0 [facility] Comment on above: Performed By: #### 2 729575 #### [facility] [address] [place] [address] Lymphocytes (Bld) [#/Vol] 2.1 E9/L Normal 1.0-4.0 [facility] Comment on above: Performed By: #### 2 [id number] #### [facility] [address] [place] [address] Lymphocytes/100 WBC (Bld) 21.8 % Normal 14.0-50.0 [facility] Comment on above: Performed By: #### 2 [id number] #### [facility] [address] [place] [address] MCH (RBC) [Entitic mass] 31.6 pg Normal 27.0-34.0 [facility] Comment on above: Performed By: #### 2 734335 #### [facility] [address] [place] [address] MCHC (RBC) [Mass/Vol] 34.1 g/dL Normal 31.4-36.0 [facility] Comment on above: Performed By: #### 2 [id number] #### [facility] [address] [place] [address] MCV (RBC) [Entitic vol] 92.5 fL Normal 80.0-100.0 [facility] Comment on above: Performed By: #### 2 691585 #### [facility] [address] [place] [address] Monocytes (Bld) [#/Vol] 0.7 E9/L Normal 0.2-1.0 [facility] Comment on above: Performed By: #### 2 076832 #### [facility] [address] [place] [address] Neutrophils (Bld) [#/Vol] 6.5 E9/L Normal 2.0-7.5 [facility] Comment on above: Performed By: #### 2 515122 #### [facility] [address] [place] [address] Neutrophils/100 WBC (Bld) 66.0 % Normal 36.0-75.0 [facility] Comment on above: Performed By: #### 2 121657 #### [facility] [address] [place] [address] Platelet mean volume (Bld) [Entitic vol] 7.9 fL Normal 6.4-10.8 [facility] Comment on above: Performed By: #### 2 807774 #### [facility] [address] [place] [address] Platelets (Bld) [#/Vol] 284.0 E9/L Normal 150.0-500.0 [facility] Comment on above: Performed By: #### 2 [id number] #### [facility] [address] [place] [address] RBC (Bld) [#/Vol] 5.1 E12/L Normal 4.3-5.9 [facility] Comment on above: Performed By: #### 2 869982 #### [facility] [address] [place] [address] WBC corrected for nucl RBC Auto (Bld) [#/Vol] 9.9 E9/L Normal 4.0-11.0 [facility] Comment on above: Performed By: #### 2 [id number] #### [facility] [address] [place] [address] CHEMISTRYOrdered By: SYSTEM SYSTEM on 04-02-2024 25-hydroxyvitamin [...] (Bld) [Mass fraction] 5.6 % Normal <=5.9% [facility] ChemAutoSS CMPon 04-02-2024 Albumin [Mass/Vol] 4.3 g/dL Normal 3.3-5.0 [facility] Comment on above: Performed By: #### 2 [id number] #### [facility] [address] [place] [address] Albumin/Globulin (S) [Mass conc ratio] 1.5 Normal 1.1-2.2 [facility] Comment on above: Performed By: #### 2 419559 #### [facility] [address] [place] [address] ALP [Catalytic activity/Vol] 88 Int._Unit/L Normal 21-98 [facility] Comment on above: Performed By: #### 2 854177 #### [facility] [address] [place] [address] ALT No additional P-5'-P [Catalytic activity/Vol] 15 Int._Unit/L Normal 6-46 [facility] Comment on above: Performed By: #### 2 [id number] #### [facility] [address] [place] [address] AST [Catalytic activity/Vol] 17 Int._Unit/L Normal 5-43 [facility] Comment on above: Performed By: #### 2 [id number] #### [facility] [address] [place] [address] Bilirubin [Mass/Vol] 0.6 mg/dL Normal 0.0-1.1 [facility] Comment on above: Performed By: #### 2 [id number] #### [facility] [address] [place] [address] Calcium [Mass/Vol] 9.1 mg/dL Normal 8.9-11.1 [facility] Comment on above: Performed By: #### 2 [id number] #### [facility] [address] [place] [address] Chloride [Moles/Vol] 107 mmol/L Normal 101-111 [facility] Comment on above: Performed By: #### 2 [id number] #### [facility] [address] [place] [address] Creatinine [Mass/Vol] 1.0 mg/dL Normal 0.5-1.3 [facility] Comment on above: Performed By: #### 2 [id number] #### [facility] [address] [place] [address] Globulin (S) [Mass/Vol] 2.8 g/dL Normal 1.4-4.0 [facility] Comment on above: Performed By: #### 2 [id number] #### [facility] [address] [place] [address] Glucose [Mass/Vol] 95 mg/dL Normal 55-199 [facility] Comment on above: Performed By: #### 2 [id number] #### [facility] [address] [place] [address] Potassium [Moles/Vol] 4.0 mmol/L Normal 3.5-5.3 [facility] Comment on above: Performed By: #### 2 [id number] #### [facility] [address] [place] [address] Protein [Mass/Vol] 7.1 g/dL Normal 6.0-7.8 [facility] Comment on above: Performed By: #### 2 [id number] #### [facility] [address] [place] [address] Sodium [Moles/Vol] 140 mmol/L Normal 135-145 [facility] Comment on above: Performed By: #### 2 [id number] #### [facility] [address] [place] [address] Urea nitrogen [Mass/Vol] 21 mg/dL Normal 5-21 [facility] Comment on above: Performed By: #### 2 [id number] #### [facility] [address] [place] [address] Urea nitrogen/Creatinine [Mass ratio] 21 No Units High 10-20 [facility] Comment on above: Performed By: #### 2 [id number] #### [facility] [address] [place] [address] Anion gap [Moles/Vol] 10 mmol/L Normal 6-16 [facility] Comment on above: Performed By: #### 2 [id number] #### [facility] [address] [place] [address] CO2 [Moles/Vol] 27 mmol/L Normal - [facility] Comment on above: Performed By: #### 2 [id number] #### [facility] [address] [place] [address] Consent for Treatmenton 03-05 Consent for Treatment [id number] Normal [facility] Free T4on 04-02-2024 Free T4 [Mass/Vol] 0.87 ng/dL Normal 0.58-1.64 [facility] Comment on above: Performed By: #### 2 [id number] #### [facility] [address] [place] [address] HEMATOLOGYOrdered By: SYSTEM SYSTEM on 04-02-2024 Basophils/100 [...] 13 mm/h Normal 0 - 34 mm/hr [facility] [place] HemeAutoSS [id number] 04-02-2024 HbA1c (Bld) [Mass fraction] 5.6 % Normal <=5.9 [facility] Comment on above: Performed By: #### [id number] #### [facility] Laboratory [address] [place] [address] Lipase Levelon 04-02-2024 Lipase [Catalytic activity/Vol] 18 U/L Normal 13-58 [facility] Comment on above: Performed By: #### 2 [id number] #### [facility] [address] [place] [address] Lipid Panelon 04-02-2024 Cholesterol [Mass/Vol] 192 mg/dL Normal 120-200 [facility] Comment on above: Performed By: #### 2 [id number] #### [facility] [address] [place] [address] Cholesterol in HDL [Mass/Vol] 46 mg/dL Invalid Interpretation Code [facility] Comment on above: Result Comment: '>= 60 LOW RISK' '<= 40 HIGH RISK' Performed By: #### 2 [id number] #### [facility] [address] [place] [address] Cholesterol in LDL [Mass/Vol] 132 mg/dL High <=129 [facility] Comment on above: Performed By: #### 2 [id number] #### [facility] [address] [place] [address] Cholesterol in VLDL [Mass/Vol] 22 mg/dL Normal 7-40 [facility] Comment on above: Performed By: #### 2 [id number] #### [facility] [address] [place] [address] Triglyceride [Mass/Vol] 110 mg/dL Normal <=149 [facility] Comment on above: Performed By: #### 2 [id number] #### [facility] [address] [place] [address] Sed Rate Automatedon 024 ESR (Bld) [Velocity] 13 mm/h Normal 0-34 [facility] Comment on above: Performed By: #### 1 [id number] #### [facility] [address] [place] [address] TSHon 04-02-2024 TSH Qn 2.99 m[IU]/L Normal 0.34-5.60 [facility] Comment on above: Performed By: #### 2 [id number] #### [facility] [address] [place] [address] UA With Cult Reflexon 2023 Type of Urine collection method Clean Catch Normal [facility] Comment on above: Performed By: #### 1 [id number] #### [facility] [address] [place] [address] Clarity (U) Clear Normal Clear [facility] Comment on above: Performed By: #### 1 [id number] #### [facility] [address] [place] [address] Color (U) Yellow Normal Yellow [facility] Comment on above: Result Comment: Micr oscopic readings are only performed on those samples that meet specific criteria set forth by [facility]. Performed By: #### 1 [id number] #### [facility] [address] [place] [address] Epithelial cells.squamous Auto (Urine sed) [#/Area] 9-10 Abnormal 0-2 [facility] Comment on above: Performed By: #### 1 [id number] #### [facility] [address] [place] [address] Leukocyte esterase Auto test strip Ql (U) 500 Carlitos/uL Abnormal Negative [facility] Comment on above: Performed By: #### 1 [id number] #### [facility] [address] [place] [address] Mucus Auto Ql (U) Trace Normal Negative [facility] Comment on above: Performed By: #### 1 [id number] #### [facility] [address] [place] [address] pH (U) 6.5 [pH] Invalid Interpretation Code 5.0-9.0 [facility] Comment on above: Performed By: #### 1 [id number] #### [facility] [address] [place] [address] RBC Ql (U) 4-20 Abnormal 0-3 [facility] Comment on above: Performed By: #### 1 [id number] #### [facility] [address] [place] [address] Specific gravity (U) [Rel density] 1.020 Invalid Interpretation Code 1.005-1.030 [facility] Comment on above: Performed By: #### 1 [id number] #### [facility] [address] [place] [address] WBC Auto (Urine sed) [#/Area] 16-25 Abnormal 0-5 [facility] Comment on above: Performed By: #### 1 [id number] #### [facility] [address] [place] [address] UA With Cult ReflexOrdered B y: SYSTEM SYSTEM on 04-02-2024 Bilirubin Ql (U) Negative Normal Negative [facility] Comment on above: Performed By: #### 1 [id number] #### [facility] [address] [place] [address] Glucose Ql (U) Negative Normal Negative [facility] Comment on above: Performed By: #### 1 [id number] #### [facility] [address] [place] [address] Hemoglobin Auto test strip (U) [Mass/Vol] Negative Normal Negative [facility] Comment on above: Performed By: #### 1 [id number] #### [facility] [address] [place] [address] Ketones Auto test strip Ql (U) Negative Normal Negative [facility]A Auto [facility] Comment on above: Performed By: #### 1 [id number] #### [facility] [address] [place] [address] Nitrite Auto test strip Ql (U) Negative Normal Negative [facility]A Auto [facility] Comment on above: Performed By: #### 1 [id number] #### [facility] [address] [place] [address] Protein Ql (U) Negative Normal Negative [facility] Comment on above: Performed By: #### 1 [id number] #### [facility] [address] [place] [address] Urobilinogen (U) [Mass/Vol] Negative Normal Negative [facility]A Auto [facility] Comment on above: Performed By: #### 1 [id number] #### [facility] [address] [place] [address] URINALYSISOrdered By: SYSTEM SYSTEM on 04-02-2024 Clarity (U) Clear (04/02/24 9:00 AM) Normal Clear [facility] UA Auto SS Color (U) Yellow 1 (04/02/24 9:00 AM) Normal Yellow [facility] UA Auto SS Comment on above: Interpretive Data: M icroscopic readings are only performed on those samples that meet specific criteria set forth by [facility]. Epithelial cells.squamous Auto (Urine sed) [#/Area] [...] 25-hydroxyvitamin D3 [Mass/Vol] 22.9 ng/mL Low 30.0-100.0 [facility] Comment on above: Performed By: #### 5 [id number] #### [facility] [address] [place] [address] eGFRon 04-02-2024 eGFR 61 mL/min/1.73 m2 Normal >=59 [facility] Comment on above: Order Comment: Order added by Discern Expert. 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, pp_set_radiolog y_subspecialty, Not Required, [facility]\.br\ Medications\.br \ What How Much When Why Instructions\.b r\ New hydrochlorothia zide-lisinopril (hydrochlorothi azide-lisinopri l 12.5 mg-10 mg Tab) 1 Tablets By Mouth Every day Benign essential HTN Pickup at [facility]\.br\ New nicotine (nicotine 7 mg/ 24 hr Transderm ER Film) 1 Patches Topical Every day Personal history of tobacco use Refills: 1 Pickup at [facility]\.br\ Unchanged buPROPion (Wellbutrin SR 150 mg Tab-ER) 1 Tablets By Mouth 2 times a day Depression Other obesity Personal history of tobacco use Pickup at [facility]\.br\ Unchanged duloxetine (duloxetine 60 mg oral delayed release capsule) 1 Capsules By Mouth Every day Anxiety Depression Pickup at [facility]\.br\ Unchanged ondansetron (Zofran 4 mg Tab) 1 Tablets By Mouth Every 8 hours as needed for Nausea/Vomiting Worsening headaches Contact prescribing physician if questions or concerns \.br\ Pharmacy Information\.br \ [facility]: [address] [place], [place] [id number] [phone]\.br\ Allergies\.br\ Contrast Dye (Swelling, Hives)\.br\ adhesives (redness)\.br\ [...] choosing us for your care.\.br\ \.br\ [facility] Family Medicine Office/Clini c Noteon 03-19-2024 Family [...] rings. She also consumed a drink called Settle, a deviation from her usual consumption. She [...] palpation over the umbilicus region with negative Alan sign, negative Pate's sign. Back: No? tenderness, Normal? ROM, (more content not included)... Normal [facility] Comment on above: Result Comment: Elec tronically [...] hard liquor (44 mL). Medicines ? Take nmxo-blf-csiikxd and prescription medicines only as told by [...] more informatio (more content not included)... Normal [facility] OT - Workers [facility] 01-06-20 24 OT - Workers Comp [id number] 71490 [id number]#1.00TIFF [facility] OT - Workers [facility] 12-25-19 24 OT - Workers Comp [id number]#1.00TIFF [facility] Physician Referralon 024 Physician Referral [id number]#1.00TIFF [facility] Family Medicine Office/Clini c Noteon 12-14-2023 Family Medicine Office/Clinic Note Chief Complaint Establish Care-Former [facility] Staff Patient here to Establish Care History: Any previous diagnosis: Benign HTN, Depression, Hyperlipidemia History of seeing any specialist(s): yes Ortho for wrist fracture and prosthodontist for surgical clearance (EKG) When was your [...] Family history): _ She does not take bnpr-dmd-cejanyv supplement Specialists: Dr. Maddox, Dr. Coleman Manager Government: N/A Dentist: N/A Psychology/psychiatry: N/A Cardiology: N/A [...] Dr Coleman, a reconstructive surgeon based in [place], who confirmed the possibility of correction. The patient intended to undergo the corrective procedure in the spring, but due to a fall, she was nearly non-weight bearing for 2 months. Fracture of right wrist with routine healing. The patient reports having undergone laboratory tests at [facility] for pre-admission at the end of 09/2023. [...] healing correctly. She continues her therapy at [facility]. She has an appointment with Dr [...] patient pres (more content not included)... Normal [facility] Comment on above: Result Comment: Elec tronically [...] Occupational Therapy Friday 2:30 PM EDT Where: [facility] Invalid Interpretation Code Wellness examination, Not Required, Print Label By Order Location\.br\ Comprehensive Metabolic Panel, Blood, Routine collect, 12/10/23, Order for future visit, Lab Collect, Benign essential HTN [facility] Patient Educationon 12-10-19 Patient Education Immunology [...] these instructions at home: Medicines ? Take sthn-qwg-opepxbp and prescription medicines only as told by [...] the National Suicide Prevention Lifeline at or 093. This is open 24 hours a day. ? Text the Crisis Text Line at 063741. Summary ? If you have fatigue, you [...] provider. Document Revised: 08/12/2022 Document Reviewed: 08/12/2022 ElseComQi Patient Education ? 2022 [employer]. Mental and Behavioral Health Major Depressive Disorder, [...] ? You (more content not included)... Normal [facility] Pre-Visit Planningon 024 Pre-Visit Planning - From: [...] BMI of 38.03 on 10/30/2023. The National [place] of Health defines obesity as morbid if [...] feel free to contact me at extension [phone]. Thank you! SIMONA Pardo, RN, CCM, CCDS, CCDS-O From: Beatrice Ingram To: Yolette Laughlin RN; Sent: 12/09/2023 22:05:42 EST Subject: RE: Pre-Visit Planning Caller Name: BENNY MELBA A; Caller Number: H - Class 3 severe obesity BMI 38 with serious comorbidity in adult with HTN. ??? (please also include additional diagnosis to reflect current BMI) Normal [address] [facility] Pre-Visit Planning - From: Yolette Laughlin [...] feel free to contact me at extension [phone]. Thank you! SIMONA Pardo, RN, CCM, CCDS, CCDS-O From: Beatrice Ingram To: Truman MANE, Yolette; Sent: 12/09/2023 22:04:13 EST Subject: RE: Pre-Visit Planning Caller Name: MELBA ZAPATA; Caller Number: H Major depressive disorder, recurrent, mild Normal [address] [facility] OT - Home Exercise Programon 12-04-2023 OT - Home Exercise Program [id number]#1.00TIFF [facility] OT - Assessmentson OT - Assessments [id number]#1.00TIF F [facility] OT - Consentson 11-14-2023 OT - Consents [id number]#1.00TIF F [facility] OT - Home Exercise Programon 11-14-2023 OT - Home Exercise Program [id number]#1.00TIF F [facility] OT - Orderson 11-12-2023 OT - Orders [id number]#1.00TIFF [facility] Consent for Treatmenton Consent for Treatment [id number]#1.00TIFF [facility] OT - Workers Compon 11-10-19 24 OT - Workers Comp [id number]#1.00TIFF [facility] Workers Comp Formson 024 Workers Comp Forms [id number]#1.00TIFF [facility] Consent for Flu Vaccineon Consent for Flu Vaccine [id number]#1.00TIFF [facility] Family Medicine Office/Clini c Noteon 10-31-2023 Family [...] of clutter to prevent tripping and/or falling. [place] Advance Directives reviewed. Packet received in the [...] many disease (more content not included)... Normal [facility] Comment on above: Result Comment: Elec tronically Signed By: SIENNA CONSTANTINO, Aakash Ruggiero\.kyler\Date and Time Signed: 10/31/23 12:38 EST\.br\Electronically Co-Signed By: Tiffanie Yi LPN\.br\Date and Time Co-Signed: 10/30/23 16:16 EST [place] 10-31-2023 Screens [id number]#1.00TIFF Di [facility] Ambulatory Visit Summaryon 1 12-31-2022 Ambulatory Visit [...] Occupational Therapy Friday 4:00 PM EST With: Cameron SGUGS, Beatrice Valdez Where: [facility] Normal [address] [place] [address]- \.br\ Medications\.br \ What How Much When [...] it yourself. Visit the VAERS website at www.vaers.[facility].g ov or call . VAERS is only for reporting reactions, and VAERS staff do not give medical advice.\.br\ 6. How can I learn more?\.br\ ? \.br\ Ask your health care provider.\.br\ ? \.br\ Call your local or state health department.\.br \ ? \.br\ Contact the Centers for Disease Control and Prevention (CDC):\.br\ ? \.br\ Call (1-053-FQB-INFO ) or\.br\ ? \.br\ Visit CDC's website [...] provider.\.br\ Document Revised: 09/18/2022 Document Reviewed: 07/22/2022 ElseComQi Patient Education ? 2022 [employer].\.br\ Understanding Your Risk for Falls\.br\ Each [...] or edema, as well as tyler [facility] Patient Educationon 10-30-20 23 Patient Education Caregiving [...] Community-Based Fall Prevention Programs: www.cdc.gov ? National [place] on Aging: www.erich.nih.gov Contact a health care [...] Reviewed: 05/23/2021 Elsevier Patient Education ? 2022 [employer]. Infectious Disease Pneumococcal Polysaccharide Vaccine (PPSV23): What You Need to Know 1. Why get vaccinated? Pneumococcal polysaccharide vaccine (PPSV23) can prevent pneumococcal disease. Pneumococcal disease refers to any illness caused by pneumococcal bacteria. These bacteria can cause many types of illnesses, including pneumonia, which is an infection of the lungs. Pneumococca (more content not included)... Normal [facility] FL LESS THAN 1 HOURon 2022 FL LESS THAN 1 HOUR Radiology exam is complete. No Radiologist dictation. Please follow up with ordering provider. Final result Normal [facility] Office Visiton 10-02-2023 Follow-up visit [id number] Diana Zapata 1955 F Date Provider Department Center 10/02/2023 DARIO MENENDEZ CARD [facility] Family History Problem Relation Age of Onset Atrial fibrillation Mother Diabetes Mother Other Mother Transient ischemic attack Father Stroke Maternal Grandmother Family Status - Relation Status Age at Mother Father Maternal Grandmother Level of Service:91249 [place] OFFICE/OUTPATIENT NEW MODERATE MDM 45-59 MINUTES Normal [facility] CT Head or Brain w/o Contras [...] MD Transcribed by: PRIMO Technologist: TERRY [facility] CT Spine Cervical w/o Contra ston 09-10-2023 [...] Merrick Torrez MD Transcribed by: PRIMO Technologist: [facility] Consent for Treatmenton Consent for Treatment [id number]#1.00TIFF Normal [facility] Discharge Instructionson Discharge Instructions [id number]#1.00TIFF [facility] ED Clinical Summaryon 2022 ED Clinical Summary (Inserted Image. Margret ble to display) [place] [id number] ED Clinical Summary Person Information Name: MELBA ZAPATA [facility] Age: 68 Years : 1955 Sex: Female Language: [place] Islander PCP: Martha Hathaway CNP Marital Status: Phone: [phone] Visit Id: Visit Reason: Knee pain-swelling; Wrist [...] 09/10/2023 14:28:48 09/10/2023 14:28:48 09/10/2023 14:28:48 ADDRESS: [address] [place] [id number] PHYS DOC NOTES: MEDICAL INFORMATION: Prescriptions Given: New Medications [facility], [address] [place], [place] [id number], [phone] acetaminophen-oxycodone (acetaminophen-oxycodone 325 mg-5 mg Tab) 1 Tablets By Mouth every 6 hours as needed for pain for 3 Days. Refills: 0. Medications to Continue with No Changes Other Medications duloxetine (duloxetine 60 mg oral delayed release capsule) 1 Capsules By Mouth every day. Refills: 0. PATIENT EDUCATION INFORMATION: Instructions: Contusion; Cervical Sprain; Radial Fracture Follow up: With: Address: When: Rony Wray [address] [place], [place] [id number] [facility] (1) In 3 days 09/13/2023 Comments: Follow-up with Dr. Wray for further evaluation of your distal radius fracture. With: Address: When: Occupational Health: [facility] [phone] In 3 days 09/13/2023 With: Address: When: Martha Hathaway In 3 days 09/13/2023 Comments: Follow-up with your primary care provider in 3 to 5 days. If symptoms worsen, do not improve, or new symptoms arise please report back to emergency department for further evaluation. DIAGNOSIS: Cervical strain; Closed head injury; Contusion of left knee; Fall; Right radial fracture Normal [facility] ED Note-Physicianon 09-10-20 ED Note-Physician Basic Information Time Seen: Phil BLEDSOE, Sushil Rausch. 09/10/2023 11:49 Chief Complaint patient c/o right wrist pain, left knee pain and neck pain after tripping and falling this afternoon. denies LOC or use of blood thinners. 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 Dockery (more content not included)... Normal [facility] Comment on above: Result Comment: Elec tronically Signed By: Phil BLEDSOE, Sushil Kennedy.br\Date and Time Signed: 09/10/23 14:46 EST\.br\Electronically Co-Signed By: Som Willis M.D..br\Date and Time Co-Signed: 09/10/23 14:51 [facility] ED Patient Education Noteon 09-10-2023 ED Patient [...] or lying down. General instructions ? Take nzui-coi-uhhxgsr and prescription medicines only as told by [...] compression, and elevation. You may be given xrnr-qad-mkbevgc medicines for pain. ? Contact a health [...] Reviewed: 08/15/2022 Elsevier Patient Education ? 2022 [employer]Pad Inc. Cervical Sprain A cervical sprain is [...] doing p (more content not included)... Normal [facility] ED Patient Summaryon 023 ED Patient Summary (Inserted Image. Margret ble to display) [address] [address] Patient Discharge Instructions Person Information Name: MELBA ZAPATA Age: 68 Years Arrival Date: 09/10/2023 11:36:20 Discharge Diagnosis: Cervical strain; Closed head injury; Contusion of left knee; Fall; Right radial fracture Primary Care Physician: Martha Hathaway CNP Provider Information Primary Provider: Som Willis M.D. Advanced Wedger:None The exam and treatment you received in the Emergency Department were for an urgent problem and are not intended as complete care. It is important that you follow up with a doctor, nurse practitioner, or physician?s insurance account assistant for ongoing care. If your symptoms [...] Follow-up Instructions: With: Address: When: Rony Wray [address] [place] [address] [facility] () In 3 days 09/13/2023 Comments: Follow-up with Dr. Wray for further evaluation of your distal radius fracture. With: Address: When: Occupational Health: [facility] [phone] In 3 days 09/13/2023 With: Address: When: [...] opioids can be used to help relieve naovgncl-hh-eihkov pain and are often prescribed following a [...] dispose of (more content not included)... Normal [facility] ED Traumaon 09-10-2023 ED Trauma [id number]#1.00TIFF Normal [facility] Workers Comp Formson 023 Workers Comp Forms [id number]#1.00TIFF Normal [facility] XR Knee Complete 4+ Views Le [...] mGy = 0 DAP = 0 Normal [facility] XR Wrist 3+ Views Righton XR [...] = 0 DAP = 0 Normal [facility] Family Medicine Office/Clini c Noteon 08-21-2023 Family [...] with voice recognition software. Occasional wrong-word or ?wbjeh-b-vgks? substitutions may have occurred due to the [...] day(s), # 14 cap(s), Refills(s) 0, Pharmacy: [facility], 167, cm, 08/21/23 14:00:00 EDT, Height/Length [...] she notice (more content not included)... Normal [facility] Comment on above: Result Comment: Elec tronically [...] these instructions at home: Medicines ? Take wkbp-nsf-sihwrws and prescription medicines only as told by [...] Take good care of your mouth: ? [place] your teeth at least two times a [...] provider. Document Revised: 03/01/2022 Document Reviewed: 03/01/2022 TimePad Patient Education ? 2022 [employer]. Sinus Infection, Adult A sinus infection, also called sinusitis, is inflammation of your sinuses. Sinuses are hollow spaces in the bones around your face. Your sinuses are located: ? Around your eyes. ? In the middle of your forehead. ? Behind your nose. ? In your cheekbones. Mucus normally drains out of your sinuses. When your na (more content not included)... Normal [facility] Reference Laboratory Testing Ordered By: [employer] DomainUser on 11-23-2021 SARS-CoV-2 (COVID-19) RNA JUNAID+probe Ql (Resp) Not detected Invalid Interpretation Code Not Detected [facility] [employer] Comment on above: Result Comment: This nucleic acid amplification test was developed and its performance characteristics determined by [employer]. Nucleic acid amplification tests include RT-PCR and [...] detected) result in this assay. Performed at: [address] [id number] PhD Zhang Padron 06-17-2017 [facility] Office Visit (MARYBETHFT) VICKIE ZAPATA ([id number]) 1955 [facility] Department06/17/17 12:50 PM RUBENS SWARTZ During your visit today, we recorded the following information about you: Pulse Respiration Blood pressure Weight 83/minute 20/minute 135/79 99.8 kg Height 1.676 Evangelina Swartz MD 06/17/2017 2:02 PM [facility] SURGERY OUTPATIENT CONSULTSERVICE DATE: 06/17/2017PCP: Camryn Barbosa, [id number] [facility] [id number] PROVIDER:Brea Layton requested for an opinion regarding the evaluation and treatment Saadia Zapata. My final impression and recommendations will be communicatedback to the requesting physician by way of the shared medical record or lettervia US mail.SUBJECTIVEMelba Zapata is a 62 year old female presenting alone. 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[employer].CHIEF COMPLAINT: Right arm weaknessHISTORY OF PRESENT [...] Ratio: RIGHT ARMDERMATOMAL DISTRIBUTION:Right: C6, C7 and O0LHUAHEZHVE STATUS: AT LEAST 1 -2 MILESSTANDING UPRIGHT: [...] Wt 99.8 kg (220 lb) BMI 35.51 kg/u9GZDRPWG APPEARANCE: Well nourished, well developed, and no [...] SignedCERVICAL DISC HERNIATION/STENOSISReferr ing Provider: CAMRYN BARBOSA [[id number]]Allergies As of Date: 06/17/2017 Noted Allergy ReactionIODINE [...] Shoulder impingement, right [M75.41]Order(s):XR CERVICAL OBLIQUES ONLY [[id number]] Order #: [id number] FUTURE XR CERVICAL 3VIEW/FLEX/EXT [[id number]] Order #: [id number] FUTUREPrescriptions as of 06/17/2017 Sig: BUPROPION HCL [...] to improve.Follow-up and Disposition History RecordedEncounter Number: [id number] Status:Closed by RUBENS SWARTZ MD on 06/17/17 [facility] PROGRESSon 06-17-2017 PROGRESS HNO ID: [id number] thor: Rubens SwartzSerjustae: (none)Author Type: PhysicianType: Progress NotesFiled: 06/17/2017 2:02 PMNote Text:SPINE SURGERY OUTPATIENT CONSULTSERVICE DATE: 06/17/2017PCP: Camryn Barbosa, [id number] [facility] [id number] PROVIDER:Brea Layton requested for an opinion regarding the evaluation and treatmentof Melba Zapata. My final impression and recommendations will becommunicated back to the requesting physician by way of the shared medicalrecord or letter via [place] mail.Sunita Zapata is a 62 year old female presenting alone. 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 He then referred the patient to [facility] further assessment.PAIN EVALUATION 06/17/2017 Pain Score: 8 Pain Location: Arm-Right Description: Numbness Duration Amount of Time: 4 Duration Units: Months Frequency: Continuous Intervention: Medication;RepositionPain Radiation: Right shoulder into the right hand involving all digitsAggravating Factors: reaching, pulling, lifting, usage of the right arm,doing hair and make upAlleviating Factors: nothingPain Ratio: RIGHT ARMDERMATOMAL DISTRIBUTION:Right: C6, C7 and [id number] STATUS: AT LEAST 1 -2 MILESSTANDING UPRIGHT: [...] Wt 99.8 kg (220 lb) BMI 35.51 kg/[id number] APPEARANCE: Well nourished, well developed, and no [...] 17, 2017 : 12:56 PM PAGER: Normal [facility] Vital Signs Date Time Vital Sign Value Performing Clinician Facility 06-04-2024 08:21-0400 Diastolic blood pressure 71 mm[Hg] Aakash Levy [facility] [place] 06-04-2024 08:21-0400 Heart rate 72 /min Aakash Levy [facility] [place] 06-04-2024 08:21-0400 Systolic blood pressure 103 mm[Hg] Aakash Levy [facility] [place] 05-27-2024 09:00-0400 Diastolic blood pressure 83 mm[Hg] Tony Edmondson [facility] 05-27-2024 09:00-0400 Heart rate 71 /min Tony Delvis [facility] 05-27-2024 09:00-0400 Mean blood pressure 102 mm[Hg] Tony Delvis [facility] 05-27-2024 09:00-0400 Respiratory rate 20 /min Tony Delvis [facility] 05-27-2024 09:00-0400 SaO2% (BldA) [Mass fraction] 97 % Tony Delvis [facility] 05-27-2024 09:00-0400 Systolic blood pressure 139 mm[Hg] Tony Delvis [facility] 05-27-2024 07:00-0400 Diastolic blood pressure 69 mm[Hg] Tony Delvis [facility] 05-27-2024 07:00-0400 Heart rate 66 /min Tony Delvis [facility] 05-27-2024 07:00-0400 Mean blood pressure 86 mm[Hg] Tony Delvis [facility] 05-27-2024 07:00-0400 Respiratory rate 13 /min Tony Delvis [facility] 05-27-2024 07:00-0400 SaO2% (BldA) [Mass fraction] 96 % Tony Delvis [facility] 05-27-2024 07:00-0400 Systolic blood pressure 120 mm[Hg] Tony Delvis [facility] 05-27-2024 06:52-0400 Diastolic blood pressure 75 mm[Hg] Tony Delvis [facility] 05-27-2024 06:52-0400 Heart rate 60 /min Tony Delvis [facility] 05-27-2024 06:52-0400 Mean blood pressure 90 mm[Hg] Tony Delvis [facility] 05-27-2024 06:52-0400 Respiratory rate 11 /min Tony Delvis [facility] 05-27-2024 06:52-0400 Systolic blood pressure 119 mm[Hg] Tony Delvis [facility] 05-27-2024 05:38-0400 SaO2% (BldA) [Mass fraction] 98 % Tony Delvis [facility] 05-26-2024 18:30-0400 Hourly Rounding Tony Delvis [facility] 05-26-2024 18:30-0400 Promise to Return Tony Delvis [facility] 05-26-2024 17:40-0400 Hourly Rounding Tony Delvis [facility] 05-26-2024 17:40-0400 Promise to Return Tony Delvis [facility] 05-26-2024 16:23-0400 Hourly Rounding Tony Delvis [facility] 05-26-2024 16:23-0400 Promise to Return Tony Delvis [facility] 05-26-2024 12:44-0400 Body temperature 98.96 [degF] Tony Delvis [facility] 05-26-2024 12:44-0400 Heart rate 74 /min Tony Delvis [facility] 05-26-2024 12:44-0400 Respiratory rate 18 /min Tony Delvis [facility] 05-26-2024 10:41-0400 Heart rate 73 /min Aakash Mourany [facility] 05-26-2024 10:41-0400 SaO2% (BldA) [Mass fraction] 92 % Aakash Mourany [facility] 05-26-2024 10:40-0400 Diastolic blood pressure 67 mm[Hg] Aakash Mourany [facility] 05-26-2024 10:40-0400 Mean blood pressure 79 mm[Hg] Aakash Mourany [facility] 05-26-2024 10:40-0400 Systolic blood pressure 102 mm[Hg] Aakash Mourany [facility] 05-26-2024 09:51-0400 Heart rate 69 /min Aakash Mourany [facility] 05-26-2024 09:51-0400 SaO2% (BldA) [Mass fraction] 93 % Aakash Mourany [facility] 05-26-2024 09:49-0400 Diastolic blood pressure 70 mm[Hg] Aakash Mourany [facility] 05-26-2024 09:49-0400 Mean blood pressure 82 mm[Hg] Aakash Mourany [facility] 05-26-2024 09:49-0400 Systolic blood pressure 106 mm[Hg] Aakash Mourany [facility] 05-26-2024 09:49-0400 Respiratory rate 18 /min Aakash Mourany [facility] 05-26-2024 09:40-0400 Blood Pressure Location Aakash Mourany [facility] 05-26-2024 09:40-0400 Body temperature 98.06 [degF] Aakash Mourany [facility] 05-26-2024 09:40-0400 Diastolic blood pressure 71 mm[Hg] Aakash Mourany [facility] 05-26-2024 09:40-0400 Heart rate 53 /min Aakash Mourany [facility] 05-26-2024 09:40-0400 Mean blood pressure 94 mm[Hg] Aakash Mourany [facility] 05-26-2024 09:40-0400 Respiratory rate 20 /min Aakash Mourany [facility] 05-26-2024 09:40-0400 SaO2% (BldA) [Mass fraction] 93 % Aakash Mourany [facility] 05-26-2024 09:40-0400 Systolic blood pressure 140 mm[Hg] Aakahs Mourany [facility] 05-26-2024 09:25-0400 Blood Pressure Location Aakash Mourany [facility] 05-26-2024 09:25-0400 Mean blood pressure 83 mm[Hg] Aakash Mourany [facility] 05-26-2024 09:25-0400 Respiratory rate 11 /min Aakash Mourany [facility] 05-26-2024 09:10-0400 Blood Pressure Location Aakash Mourany [facility] 05-26-2024 09:10-0400 Mean blood pressure 78 mm[Hg] Aakash Mourany [facility] 05-26-2024 09:10-0400 Respiratory rate 18 /min Aakash Mourany [facility] 05-26-2024 08:53-0400 Body temperature 97.88 [degF] Aakash Mourany [facility] 05-26-2024 08:50-0400 FIO2 100 1 Aakash Mourany [facility] 05-26-2024 08:50-0400 Respiratory rate 1 /min Aakash Mourany [facility] 05-26-2024 08:45-0400 FIO2 100 1 Aakash Mourany [facility] 05-26-2024 08:45-0400 Respiratory rate 21 /min Aakash Mourany [facility] 05-26-2024 08:40-0400 FIO2 100 1 Aakash Mourany [facility] 05-26-2024 06:13-0400 Mean blood pressure 101 mm[Hg] Aakash Mourany [facility] 05-26-2024 06:11-0400 Body temperature 97.7 [degF] Aakash Mourany [facility] 05-26-2024 06:11-0400 Heart rate 72 /min Aakash Mourany [facility] 04-27-2024 14:25-0400 Diastolic blood pressure 82 mm[Hg] Aakash Mourany [facility] [place] 04-27-2024 14:25-0400 Heart rate 92 /min Aakash Mourany [facility] 04-27-2024 14:25-0400 Systolic blood pressure 128 mm[Hg] Aakash Mourany [facility] 04-14-2024 13:49-0400 Blood Pressure Location Beatrice Barnes [facility] 04-14-2024 13:49-0400 Body temperature 98.06 [degF] Beatrice Barnes [facility] 04-14-2024 13:49-0400 Diastolic blood pressure 82 mm[Hg] Beatrice Barnes [facility] 04-14-2024 13:49-0400 Heart rate 81 /min Beatrcie Barnes [facility] 04-14-2024 13:49-0400 Respiratory rate 18 /min Beatrice Barnes [facility] 04-14-2024 13:49-0400 SaO2% (BldA) [Mass fraction] 97 % Beatrice Barnes [facility] 04-14-2024 13:49-0400 Systolic blood pressure 138 mm[Hg] Beatrice Barnes [facility] 03-19-2024 14:55-0400 Blood Pressure Location Beatrice Barnes [facility] 03-19-2024 14:55-0400 Body temperature 97.7 [degF] Beatrice Barnes [facility] 03-19-2024 14:55-0400 Diastolic blood pressure 98 mm[Hg] Beatrice Barnes [facility] 03-19-2024 14:55-0400 Heart rate 79 /min Beatrice Barnes [facility] 03-19-2024 14:55-0400 Respiratory rate 18 /min Beatrice Barnes [facility] 03-19-2024 14:55-0400 SaO2% (BldA) [Mass fraction] 97 % Beatrice Barnes [facility] 03-19-2024 14:55-0400 Systolic blood pressure 146 mm[Hg] Beatrice Barnes [facility] 12-10-2023 16:27-0500 Blood Pressure Location Beatrice Barnes [...] [facility] 10-30-2023 14:19-0500 Blood Pressure Location Miguel Wilbert [facility] 10-30-2023 14:19-0500 Body temperature 98.42 [degF] Miguel Gudimella [facility] 10-30-2023 14:19-0500 Diastolic blood pressure 86 mm[Hg] Miguel Gudimella [facility] 10-30-2023 14:19-0500 Heart rate 74 /min Miguel Gudimella [facility] 10-30-2023 14:19-0500 SaO2% (BldA) [Mass fraction] 95 % Miguel Gudimella [facility] 10-30-2023 14:19-0500 Systolic blood pressure 130 mm[Hg] Miguel Gudimella [facility] 08-21-2023 13:55-0400 Blood Pressure Location Rai Powellpsey [facility] 08-21-2023 13:55-0400 Body temperature 97.7 [degF] Rai Duy [facility] 08-21-2023 13:55-0400 Diastolic blood pressure 78 mm[Hg] Rai Powellpsey [facility] 08-21-2023 13:55-0400 Heart rate 48 /min Rai Gordillo [facility] 08-21-2023 13:55-0400 SaO2% (BldA) [Mass fraction] 95 % Rai Gordillo [facility] 08-21-2023 13:55-0400 Systolic blood pressure 124 mm[Hg] Rai Duy [facility] 10-21-2022 13:40-0500 Blood Pressure Location Miguel Gudimella [facility] 10-21-2022 13:40-0500 Body temperature 97.52 [degF] Miguel Gudimella [facility] 10-21-2022 13:40-0500 Diastolic blood pressure 78 mm[Hg] Miguel Gudimella [facility] 10-21-2022 13:40-0500 Heart rate 74 /min Miguel Gudimella [facility] 10-21-2022 13:40-0500 Respiratory rate 18 /min Miguel Gudimella [facility] 10-21-2022 13:40-0500 SaO2% (BldA) [Mass fraction] 97 % Miguel Gudimella [facility] 10-21-2022 13:40-0500 Systolic blood pressure 128 mm[Hg] Miguel Gudimella [facility] 04-18-2022 15:36-0400 Blood Pressure Location Marthajojo Arellanoell [facility] 04-18-2022 15:36-0400 Body temperature 98.24 [degF] Martha Hathaway [facility] 04-18-2022 15:36-0400 Diastolic blood pressure 80 mm[Hg] Martha Hathaway [facility] 04-18-2022 15:36-0400 Heart rate 81 /min Martha Hathaway [facility] 04-18-2022 15:36-0400 SaO2% (BldA) [Mass fraction] 97 % Martha Htahaway [facility] 04-18-2022 15:36-0400 Systolic blood pressure 136 mm[Hg] Martha Hathaway [facility] Encounters Encounter Date Encounter Type Care Provider Facility Start: 08-19-2024 ambulatory Lucinda Jin Facility:[facility] [place] Start: 07-15-2024 ambulatory Beatrice Barnes Facil ity:[facility] Start: 07-13-2024 ambulatory Miguel Wilbert Facilit y:[facility] Start: 07-12-2024 ambulatory Antonio Rosei ty:[facility] Start: 06-29-2024 End: 06-29-2024 ambulatory [facility] Start: 06-07-2024 End: 06-07-2024 ambulatory JOHANA [facility] Start: 06-04-2024 End: 06-04-2024 ambulatory Aakash Levy Facility:[facility] Start: 06-04-2024 End: 06-04-2024 Patient encounter procedure Aakash Levy [facility] [place] Start: 05-29-2024 Evaluation and manag ement of inpatient BYRON [facility] Start: 05-29-2024 Evaluation and manag ement of inpatient NUPUR SADIE [facility] Start: 05-28-2024 Evaluation and manag ement of inpatient ESME [facility] Start: 05-27-2024 Evaluation and manag ement of inpatient OPAL COLEMAN [facility] Start: 05-27-2024 End: 05-29-2024 Evaluation and management of inpatient UNKNOWN UNKNOWN [facility] Start: 05-26-2024 End: 05-27-2024 Emergency department patient visit Tony Edmondson [facility] Start: 05-26-2024 End: 05-26-2024 Admission to same day surgery center Aakash Levy [facility] Start: 05-26-2024 End: 05-26-2024 ambulatory Aakash Levy Facility[facility] Start: 05-14-2024 End: 05-14-2024 ambulatory [facility] Start: 05-14-2024 End: 05-14-2024 Encounter for preprocedural cardiovascular examination [facility] Start: 04-27-2024 End: 04-27-2024 ambulatory Beatrice Barnes Facility:[facility] Start: 04-27-2024 End: 04-27-2024 Patient encounter procedure Aakash Levy [facility] [place] Start: 04-21-2024 End: 04-21-2024 ambulatory Beartice Barnes Facility:[facility] Start: 04-21-2024 End: 04-21-2024 Patient encounter procedure Beatrice Barnes [facility] Start: 04-15-2024 ambulatory Beatrice Barnes Facilit y:[facility] Start: 04-14-2024 End: 04-14-2024 ambulatory Beatrice Barnes Facility:[facility] Start: 04-14-2024 End: 04-14-2024 Patient encounter procedure Beatrice Barnes [facility] Start: 04-07-2024 ambulatory Beatrice Barnes Facilit y:[facility] Start: 04-02-2024 End: 04-02-2024 ambulatory Beatrice Barnes Facility[facility] Start: 04-02-2024 End: 04-02-2024 Patient encounter procedure Beatrice Barnes [facility] Start: 03-19-2024 End: 03-19-2024 ambulatory Beatrice Barnes Facility:[place] Start: 03-19-2024 End: 03-19-2024 Patient encounter procedure Beatrice Barnes [facility] Start: 01-21-2024 ambulatory Beatrice Barnes Facil ity:[facility] Start: 12-11-2023 End: 12-23-2023 Pre-admission assessment Beatrice Barnes [facility] Start: 12-10-2023 End: 12-10-2023 ambulatory Beatrice Barnes Facility:[facility] Start: 12-10-2023 End: 12-10-2023 Patient encounter procedure Beatrice Barnes [facility] Start: 12-10-2023 End: 12-10-2023 Well adult monitoring check done Beatrice Barnes [facility] Start: 11-10-2023 End: 05-02-2024 ambulatory Gilbert Desouza Facility:[facility] Start: 10-30-2023 End: 10-30-2023 ambulatory Miguel Gudimella Facility:[facility] Start: 10-30-2023 End: 10-30-2023 Encounter for general adult medical examination with abnormal findings Miguel Gudimella [facility] Start: 10-30-2023 End: 10-30-2023 Patient encounter procedure Miguel Gudimella [facility] Start: 10-22-2023 ambulatory Miguel Atkins Facilit y:[facility] Start: 10-03-2023 End: 10-03-2023 ambulatory [facility] Start: 10-02-2023 End: 10-02-20[facility] Start[facility] 09-30-2023 ambulatory [facility] Start: 09-10-2023 End: 09-10-2023 ambulatory Ricki VAZQUEZ Facility[facility] Start: 09-10-2023 End: 09-10-2023 Emergency department patient visit Som Willis Facility:[facility] Start: 08-21-2023 End: 08-21-2023 ambulatory Rai Gordillo Facility:[facility] Start: 08-21-2023 End: 08-21-2023 Patient encounter procedure Rai Gordillo [facility] Start: 10-21-2022 End: 10-21-2022 Patient encounter procedure Miguel Atkins [facility] Start: 05-08-2022 End: 05-09-[address] DENIA JOHNS Facility: Start: 04-18-2022 End: 04-18-2022 Patient encounter procedure Martha Hathaway [facility] Start: 11-23-2021 End: 2022 Patient encounter procedure Martha Hathaway [facility] Start: 06-17-2017 End: 06-17-2017 Ambulatory RUBENS SWARTZ [facility] Procedures Date Procedure Procedure Detail Performing [...] vaccine, adsorbed; Translations: [Boostrix (Tdap)] Beatrice Barnes [facility] Comment on above: Result Comment: Lot: [id number] Expiration date: 06/11/2026 Unable to add lot number 10-30-2023 pneumococcal polysaccharide vaccine, 23 valent Miguel Gudimella [facility] 08-12-2023 influenza virus vaccine, unspecified formulation Rai Dyu [facility] 10-02-2021 pneumococcal conjuga te vaccine, 13 valent Martha Hathaway [facility] 10-02-2021 influenza, high dose seasonal, preservative-free Martha Hathaway [facility] 02-02-2021 COVID-19, mRNA, LNP- S, PF, 30 mcg/0.3 mL dose; Translations: [Pfizer-BioNTech COVID-19 Vaccine] Martha Hathaway [facility] Comment on above: Reason for Medicatio n: Prophylaxis 01-12-2021 COVID-19, mRNA, LNP- S, PF, 30 mcg/0.3 mL dose; Translations: [Pfizer-BioNTech COVID-19 Vaccine] Martha Hathaway [facility] Comment on above: Reason for Medicatio n: Prophylaxis 08-10-2020 influenza virus vaccine, unspecified formulation Martha Hathaway [facility] 09-03-2018 influenza virus vaccine, unspecified formulation Martha Hathaway [facility] NEGATED: Highlighted row has not occurred!10-21-2022 influenza virus vaccine, unspecified formulation Miguel Gudimella [facility] Payers Date Payer Category Payer Unknown [id number] 2023 Worker's Compensation [id number] 2023 Worker's Compensation [id number] 1959 Medicare [id number] 1959 Unknown [id number] 1955 Unknown [id number] 2.16.84 [id number] 1955 Unknown [id number] 2.16.8 40.1.273188.3.579.2.174 1955 Unknown [id number] 2.16.8 40.1.575957.3.579.2.727 1955 Unknown [id number] 2.16.8 40.1.645319.3.579.2.727 1955 Unknown [id number] 2.16.8 40.1.776530.3.579.2.727 1955 Unknown [id number] 2.16.8 40.1.498106.3.579.2.727 1955 Unknown [id number] 2.16.8 40.1.326303.3.579.2.727 1955 Unknown [id number] 2.16.8 40.1.535764.3.579.2.727 1955 Unknown [id number] 2.16.8 40.1.759020.3.579.2.727 1955 Unknown [id number] 2.16.8 40.1.226320.3.579.2.727 1955 Unknown [id number] 2.16.8 40.1.314578.3.579.2.727 1955 Unknown [id number] 2.16.8 40.1.590598.3.579.2.727 1955 Unknown [id number] 2.16.8 40.1.051064.3.579.2.727 1955 Unknown [id number] 2.16.8 40.1.085362.3.579.2.727 1955 Unknown [id number] 2.16.8 40.1.484153.3.579.2.727 1955 Unknown [id number] 2.16.8 40.1.656841.3.579.2.727 1955 Unknown [id number] 2.16.8 40.1.335843.3.579.2.727 1955 Unknown [id number] 2.16.8 40.1.426295.3.579.2.727 1955 Unknown [id number] 2.16.8 40.1.797694.3.579.2.727 1955 Unknown [id number] 2.16.8 40.1.334417.3.579.2.727 1955 Unknown [id number] 2.16.8 40.1.980110.3.579.2.727 1955 Unknown [id number] 2.16.8 40.1.637012.3.579.2.727 1955 Unknown [id number] 2.16.8 40.1.015258.3.579.2.727 Social History Date Type Detail Facility Start: 10-02-2021 End: 12-10-2023 Tobacco smoking status Heavy tobacco smoker (finding) [facility] Comment on above: smokes 1/2 PPD smokes .5 PPD, start ed at age age 22 Tobacco smoking status Never [facility] Comment on above: smokes 1/2 PPD smokes .5 PPD, start ed at age age 22 Patient states she s mokes around 2 cigarettes a day Sex Assigned At Female [facility] Start: 03-19-2024 End: 06-04-2024 Tobacco smoking status Light tobacco smoker (finding) [facility] Comment on above: smokes .5 PPD, start ed at age age 22 smokes 1/2 PPD Patient states she s mokes around 2 cigarettes a day Medical Equipment Procedure Code Equipment Code Equipment Origin al Text Equipment Identifier Dates FDA Start: 03-22-2019 FDA Start: 09-28-2019 [id number] FDA Start: 10-12-2019 CYSTOSCOPY RETRO GRADE [...] Assessment Result Facility 05-26-2024 Functional Status N[facility]A [facility] 05-26-2024 Functional Status No [facility] 04-14-2024 Functional Status N/A [facility] 03-19-2024 Functional Status N/A [facility] 12-10-2023 Functional Status N/A [facility] 10-30-2023 Functional Status N/A [facility] 08-21-2023 Functional Status N/A [facility] 10-21-2022 Functional Status N/A [facility] [place] 04-18-2022 Functional Status N/A [facility] Clinical Notes 04-18-2022 to 06-29-2024 Note Date & Type Note Facility 06-29-2024 Note [place] [facility] Consult [place] [facility] Reason for visit: s/p PPM HPI: [...] she came for a device check at [facility], she was noted to have sinus rhythm with [place] conduction with a prolonged NC intervl. When the patient was asked to [...] Year: No Utilities: Not At Risk (05/27/2024) [facility] Utilities Threatened with loss of utilities: No [...] morning. Do not crush or chew. HYDROcodone-acetaminophen ([place]) 5-325 mg tablet Take 1 tablet by [...] Physical Exam: Cons (more content not included)... [facility] 06-07-2024 Note [facility] Cardiology Clinic Note Chief Complaint: Patient here [...] crush or chew., Disp: , Rfl: HYDROcodone-acetaminophen (Ellenton) 5-325 mg tablet, Take 1 tablet by [...] as scheduled. 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 [facility] 05-29-2024 Note 1215 Patient has discharge order in place. No order for PT placed at this time. Waiting to see OT. No wound care discovered at this time. Sent message to [facility] to confirm if patient should wait to see OT or if they are good to discharge without seeing OT, awaiting response. Barriers: -OT recs [facility] 05-29-2024 Note Cardiology Progress Note Subjective Subjective: [...] Value Ventricular Rate 64 Atrial Rate 64 NC Interval 348 QRS DURATION 100 QT Interval 426 QTC CALCULATION(BAZETT) 439 P [place] 63 R-[place] 40 T Wave [place] 54 Impression Sinus rhythm with 1st degree [...] Value Ventricular Rate 76 Atrial Rate 76 NC Interval 208 QRS DURATION 186 QT Interval 484 QTC CALCULATION(BAZETT) 544 P [place] 54 R-[place] -47 T Wave [place] 102 Impression Atrial-sensed ventricular-paced rhythm Abnormal ECG When compared with ECG of 28-MAY-2024 07:14, Electronic ventricular pacemaker has replaced Sinus rhythm Transthoracic echo (TTE) limited Result Date: 05/27/2024 1 1 [facility] Heart Station [address] [place] [address] [phone] (fax) Echocardiogram-[facility] Name: MELBA ZAPATA Study Date: 05/27/2024 03:03 PM B/P: 153 mmHg/81 mmHg HR: Date of : 1955 Location: [facility] Height: 66 in. Age: 69 year(s) Patient [...] IVC: The in (more content not included)... [facility] 05-28-2024 Note Indications for perm anent pacemaker [...] of the upper extremity Nupur Mckay M.D. [facility] Outbound [employer] account director and Pediatrics Director: Cardiac Electrophysiology Program [facility] 05-28-2024 Note ------ Attestation signed by Dianne [...] patient monitor strips were discussed with Dr. Mckya and he thinks she had complete heart block. Therefore we will proceed with permanent pacemaker implantation today. Hopefully home tomorrow Dianne Benson MD, [facility] ------ Cardiology Progress Note Subjective Subjective: Melba [...] Value Ventricular Rate 64 Atrial Rate 64 NC Interval 348 QRS DURATION 100 QT Interval 426 QTC CALCULATION(BAZETT) 439 P [place] 63 R-[place] 40 T Wave [place] 54 Impression Sinus rhythm with 1st degree A-V block Cannot rule out Inferior infarct , age undetermined Abnormal ECG When compared with ECG of 27-MAY-2024 12:38, (unconfirmed) Minimal criteria for Inferior infarct is now Present Confirmed by Miguel A SANCHEZ, L.S. (2) on 05/28/2024 12:17:41 PM Lab Results Component Value Date TROPONINI 0.00 05/27/2024 Transthoracic echo (TTE) limited Result Date: 05/27/2024 1 1 [facility] Heart Station [address] [facility] [place] [address] [phone] (fax) Echocardiogram-[facility] Name: MELBA ZAPATA Study Date: 05/27/2024 03:03 PM B/P: 153 mmHg/81 mmHg HR: Date of : 1955 Location: [facility] Height: 66 in. Age: 69 year(s) Patient [...] Doppler studies sug (more content not included)... [facility] 05-28-2024 Note Hospital Medicine Daily Progress Note - 05/28/2024 12:57 PM; Room: [address] [place] [address] Admission: 05/27/2024 11:02 AM; Length of stay: 1 days THE HOSPITALIST TEAM PREFERS TO USE [employer] CHAT FOR COMMUNICATION 7AM-7PM. IF I DO NOT RESPOND WITHIN 15 MINUTES, PLEASE PAGE ME/CALL THROUGH THE NETEZZA ARCHITECT. FROM 7PM-7AM, PLEASE PAGE [phone](COVR) Code Status: Full Code Barriers to Discharge: [...] not have recordings from her monitor in [facility] or during the surgery. - Continue to monitor rhythm. I think we should obtain the rhythm strips from [facility] and review to confirm that she had second-degree AV block with significant bradycardia as reported. Essential hypertension Continue hydrochlorothiazide, lisinopril Gallstones s/p cholecystectomy 05/22/2024 Tylenol for mild pain, Ellenton for severe pain Current smoker Nicotine patch [...] TSH 0.43 05/27/2024 No results found for: [id number] , IRON , TIBC , C3 , [...] infarct is now (more content not included)... [facility] 05-27-2024 Note Case was discussed w ith the LISA on 05/27/2024. I agree with the history, physical, assessment, and plan of care. I discussed the findings and therapeutic plan. I agree with the documentation, except for any updates below. Carlos Villarreal MD [facility] 05-27-2024 Note 05/27/24 1426 Admission Assessment Questions [...] Status Interested Does the patient have a foster care case manager assigned to them through their insurance? No Living Arrangement (Current/Prior to Hospitalization) Private residence (live alone, 10 steps it get in, one story after that) Does the patient have history of HHC or SNF? Yes ([facility]) Assistive Device Not applicable Patient's [...] to send link and activate MyChart? Yes [facility] 05-27-2024 Note Hospital Medicine History and Physical 05/27/2024 2:09 PM THE HOSPITALIST TEAM PREFERS TO USE [employer] CHAT FOR COMMUNICATION 7AM-7PM. IF I DO NOT RESPOND WITHIN 15 MINUTES, PLEASE PAGE ME/CALL THROUGH THE NETEZZA ARCHITECT. FROM 7PM-7AM, PLEASE PAGE [phone](COVR) Chief Complaint No chief complaint on file. History of Present Illness Melba Zapata is an 69 y.o. female who came from [facility] with concerns for complete heart block. Patient reports this all started when she had broken her wrist, she had EKG done at that time which showed an abnormality leading her to have an echocardiogram done With our cardiology team in [place]. During her appointment to go over her [...] complete heart block and requested transfer to [facility] for evaluation by our electrophysiology service. Patient [...] Wenckebach atrioventricular block 05/14/2024 Complete heart block ([facility]/HCC) 05/27/2024 Abrasion, right lower leg, initial [...] multiple sites 02/11/2014 (more content not included)... [facility] 05-27-2024 Note Progress Note-Physic rodrigo Patient: MELBA [...] when meets criteria ( To home ). [facility] Comment on above: Result Comment: Elec tronically [...] Problems Vitamin D deficiency / SNOMED CT 98341877 / Confirmed Urinary urgency / SNOMED CT 094251291 / Confirmed Urge incontinence / SNOMED CT 780088392 / Confirmed Smoker / SNOMED CT 105135907 / Confirmed Class 3 severe obesity with serious comorbidity in adult / SNOMED CT 0836539192 / Confirmed Added per Anali Barnes query response, per outpatient CDI policy. Need for tetanus booster / SNOMED CT 9945503539 / Confirmed Major depressive disorder, recurrent, mild / SNOMED CT 831400444 / Confirmed Added per Anali Barnes query response, per outpatient CDI policy. Emphysema of lung / SNOMED CT 120594432 / Confirmed Wellness examination / SNOMED CT 221783629 / Confirmed Screening for breast cancer / SNOMED CT 840296489 / Confirmed Osteopenia / SNOMED CT 859375777 / Confirmed OA (osteoarthritis) of hip / SNOMED CT 777087439 / Confirmed Nocturia / SNOMED CT 502534141 / Confirmed Hyperlipidemia / SNOMED CT 518674906 / Confirmed Kidney stones / SNOMED CT [id number] / Confirmed Hyperglycemia / SNOMED CT 668865339 / Confirmed Hydronephrosis / SNOMED CT 10875514 / Confirmed Hip pain, left / SNOMED CT 27045887 / Confirmed Worsening headaches / SNOMED CT 41082493 / Confirmed Gall stones / SNOMED CT 035939381 / Confirmed Radius fracture / SNOMED CT 22699940 / Confirmed R distal radius fx Fracture of right wrist with routine healing / SNOMED CT 3841616881 / Confirmed Flank pain / SNOMED CT 127874190 / Confirmed Personal history of tobacco use / SNOMED CT 4367946593 / Confirmed Fatigue / SNOMED CT 631876808 / Confirmed FHx: thyroid cancer / SNOMED CT 4688667539 / Confirmed Herniated cervical disc / SNOMED CT 3488683683 / Confirmed Patient had no falls in past year / SNOMED CT 6440297523 / Confirmed Cervical spine degeneration / SNOMED CT 2832297210 / Confirmed BMI 40.0-44.9, adult / SNOMED CT 4858845591 / Confirmed Benign essential HTN / SNOMED CT 5463571 / Confirmed Abrasion, right lower leg, initial encounter / SNOMED CT 8761134736 / Confirmed Resolved: Tobacco abuse / SNOMED CT 051956235 Resolved: Scleroderma / SNOMED CT 261322840 inactive Resolved: Smoker / SNOMED CT 808784195 Added secondary to documentation in Social History. Resolved: Sicca syndrome / SNOMED CT 101863939 Resolved: Sinus congestion / SNOMED CT 780338776 Resolved: BMI 37.0-37.9, adult / SNOMED CT 538223060 Resolved: At risk for falls / SNOMED CT 441611074 Problem added when Risk for Falls Careplan was initiated. Resolved due to patient discharge. Resolved: Asthma / SNOMED CT 713130078 Resolved: Anxiety / SNOMED CT 52981640 Canceled: Urinary urgency / SNOMED CT 769396623 Canceled: Tobacco use disorder / SNOMED CT 530809128 Canceled: Smoker / IMO 085065 Added secondary to documentation in Social History. Canceled: Obesity due to excess calories / SNOMED CT 8282984938 Canceled: Encounter for wellness examination in adult / SNOMED CT 953747576 Canceled: Osteopenia / SNOMED CT 962099526 Canceled: Current smoker on some days / SNOMED CT 9215689541 Canceled: Obesity, Class II, BMI 35-39.9 / SNOMED CT 6320823875 Canceled: Class 1 obesity with body mass index (BMI) of 30.0 to 30.9 in adult / SNOMED CT 8462668043 Canceled: Class 1 obesity with body mass index (BMI) of 34.0 to 34.9 in adult / SNOMED CT 3338467086 Canceled: Obesity due to excess calories / SNOMED CT 9993351257 Canceled: Neck pain on right side / SNOMED CT 418082889 Canceled: Nasal congestion / SNOMED CT 660689878 Canceled: Frequent urination / SNOMED CT 765697449 Canceled: Hydronephrosis due to obstruction of ureter / SNOMED CT 3958734575 Canceled: HTN (hypertension) / SNOMED CT [id number] Canceled: Hammertoe / SNOMED CT 790540682 Canceled: Gene (more content not included)... [facility] Comment on above: Result Comment: Elec tronically Signed By: Scout Campbell Jr, DO\.br\Date and Time Signed: 05/26/24 17:40 EDT 05-26-2024 Evaluation + Plan note Extrac maribel from: Title:ANES Post-operative Note---General Author: Scout Campbell Jr, DO Date:05/26/24 Plan Transfer/Discharge: Transfer/Discharge Discharge when meets criteria ( To home ). Extracted from: Title:ANES Pre-operative Note 2022 Author:Scout Campbell Jr, DO Date:05/26/24 Plan [place] [employer] Anesthesiologists (ASA) physical status classification: Class III. Anesthetic Preoperative Plan: Anesthesia General. Future Appointments Appointment Date:06/04/2024 08:20:00 AM Scheduled Provider:Aakash Levy MD Location:[facility] Appointment Type: Post Op 15 Appointment Date:07/12/2024 02:00:00 PM Scheduled Provider:Antonio FUENTES MD Location:[facility] Appointment Type:URO New Patient Appointment Date:07/13/2024 02:30:00 PM Scheduled Provider: Location:[facility] Appointment Type: Medicare Wellness Subsequent Appointment Date:07/15/2024 02:00:00 PM Scheduled Provider:Beatrice Ingram Location:[facility] Appointment Type: Open Future Scheduled Tests Laboratory* Basic Metabolic Panel 04/14/24 Radiology* MA Mamm Screen w/CAD if perf and 3D Jai 12/10/23 [facility] 07-24-2024 Evaluation + Plan noteExtracted from: Title:ED [...] Date:06/04/2024 08:20:00 AM Scheduled Provider:Aakash Levy MD Location:[facility] Appointment Type: Post Op 15 Appointment Date:07/12/2024 02:00:00 PM Scheduled Provider:Antonio FUENTES MD Location:[facility] Appointment Type:URO New Patient Appointment Date:07/13/2024 02:30:00 PM Scheduled Provider: Location:[facility] Appointment Type: Medicare Wellness Subsequent Appointment Date:07/15/2024 02:00:00 PM Scheduled Provider:Beatrice Ingram Location:[facility] Appointment Type: Open Future Scheduled Tests Laboratory* Basic Metabolic Panel 04/14/24 Radiology* MA Mamm Screen w/CAD if perf and 3D Jai 12/10/23 [facility] 07-24-2024 Hospital Discharge instructions Patient Education 05/26/2024 [...] Follow these instructions at home: Medicines Take quvj-sjq-hbqhsjq and prescription medicines only as told by [...] to keep your urine pale yellow. ?Take pphm-hxv-ppmefdu or prescription medicines. ?Eat foods that are [...] and water are not available, use hand electric knife operator. ?Change your dressing as told by your [...] provider. Document Revised: 04/23/2022 Document Reviewed: 04/23/2022 TimePad Patient Education 2022 [employer]. Follow Up Care 04/27/2024 14:52:37 With:Aakash Levy Address: [address], [address] [address]- [phone] Business (1) When: Unknown Comments:Appointment has already been scheduled [facility] 07-24-2024 NoteProvider reviewed event monitor strip with Dr Mateo Mckay in light no response received from Dr Puentes- which may be r/t his schedule/vacation. Dr Mckay states to have pt admitted to [facility] for Third degree heart block. Provider attempted to call pt and went directly to voice mail that is Full. Attempted to call her second contact- Friend Anne and this also went directly to voice mail. Staff will continue to attempt to call her to either come to [facility] ED and transfer to [facility] or directly to [facility] for admission. Addendum- Was able to reach pt and D/W pt that event monitor shows 3rd degree heart block and Dr Mateo Mckay recommends pt to go to ED/ or [facility] for admission for heart block and most likely will need perm pacemaker insertion and she voiced understanding. [facility] Admission/beds called and notified. Pt states she is going to [facility] per request of her general surgeon and will ask for transfer from there. Debbie Sigala [facility] [place] [facility] Available 7a-5pm via itsDapper Chat Pager [phone] [facility] NotePatient Education - Text Gastroenterology Minimally Invasive [...] these instructions at home: Medicines ? Take joax-shu-cnagubi and prescription medicines only as told by [...] keep your urine pale yellow. ? Take ljhr-cwc-jcvsrwv or prescription medicines. ? Eat foods that [...] and water are not available, use hand electric knife operator. ? Change your dressing as told by [...] pain around the incisions. (more content not included)...[facility]07-24-2024 NoteH&P Update History and Physical Update H&P [...] Film, 1 patch(es), Topical, Daily, 1 refills [place] 325 mg-5 mg oral tablet, 1 tab(s), [...] Father. Melanoma: Sister. TIA (transient ischemic attack): Mother.[facility]07-13-2024 NoteRecommended smoking cessationC[facility]07-[facility]-2024 NoteHypertension is unchanged. Continue current medications. Blood pressure will be reassessed at the next regular appointment.[facility]07-12-2024 NoteRoutine stress test and 30 day event monitor To assess chronotropic response and for any higher grade AV block.[facility]07-12-2024 NotePatient here for 6 mo follow up. She had echo last week. She needs cleared for [facility]. Denies chest pain and palpitations. She is now on antihypertensive medication. Review of Systems Cardiovascular: Positive for dyspnea on exertion (with steps) and leg swelling (resolves by morning). Respiratory: Positive for cough and wheezing. Musculoskeletal: Positive for arthritis, joint pain and neck pain. Psychiatric/Behavioral: Positive for depression. All other systems reviewed and are negative.[facility] 05-14-2024 NotePt has received a PPM and has F/U with Dr Puentes yesterday [facility]07-12-2024 NoteUTP CARDIOLOGY PROGRESS NOTE HPI: Melba Zapata is a 69 y.o. female here for surgery clearance and review echocardiogram HPI 69 y.o. female here with past medical history of tobacco dependence, depression and arthritis. Patient here for 6 mo follow up. She had echo last week. She needs cleared for cholecyst[facility] at [facility]. Denies chest pain and palpitations. She is [...] Risk 6.0 % 30-day risk of , [place], or cardiac arrest Pt has good functional/aerobic [...] the next regular appointment. Smoker Recommended smoking cessationC[facility] Clinic [facility] Hospital07-12-2024 Note RCRI=1 points Class II Risk 6.0 % 30-day risk of , [place], or cardiac arrest Pt has good functional/aerobic [...] shifts. This is good for next 6 months[facility] Hospital Discharge instructions Patient Education 04/14/2024 15:14:45 [...] provider. Document Revised: 07/04/2022 Document Reviewed: 07/04/2022 TimePad Patient Education 2022 [employer] 04/14/2024 15:14:42 Obesity, Adult Obesity, Adult [...] ?Hypothyroidism. ?Polycystic ovarian syndrome (PCOS). ?Binge-eating disorder. ?[place] syndrome. Taking certain medicines, such as steroids, [...] food choices, such as grocery stores and [place]. What are the signs or symptoms? The [...] and how much exercise you get. Take swfw-sag-tpuzxjn and prescription medicines only as told by [...] provider. Document Revised: 05/28/2022 Document Reviewed: 05/28/2022 TimePad Patient Education 2022 [employer]. 04/14/2024 15:14:41 Exercising to Lose Weight Exercising [...] your health care provider or diet and nutrition program instructor (dietitian). This may include: ?Eating fewer calories. [...] provider. Document Revised: 12/16/2021 Document Reviewed: 12/16/2021 TimePad Patient Education 2022 [employer]. 04/14/2024 15:14:37 Chronic Obstructive Pulmonary Disease Chronic [...] Follow these instructions at home: Medicines Take jnzq-ikj-vegbent and prescription medicines only as told by [...] provider. Document Revised: 08/28/2021 Document Reviewed: 08/28/2021 TimePad Patient Education 2022 [employer]. 04/14/2024 15:14:33 How to Use a Dry Powder Inhaler, Amdx-wy-Amif How to Use a Dry Powder Inhaler [...] number is low, it is time to scrap picker a new DPI at your pharmacy. ?When [...] is important. Where to find more information [place] [employer]: www.lung.org Contact a doctor if: [...] provider. Document Revised: 11/21/2020 Document Reviewed: 11/21/2020 TimePad Patient Education 2022 [employer]. 04/14/2024 15:14:26 Heart Disease Prevention Heart Disease [...] of hard liquor (44 mL). Medicines Take woxc-nts-amfvduh and prescription medicines only as told by [...] Centers for Disease Control and Prevention: www.cdc.gov/heartdisease [place] [employer]: www.heart.org Summary Heart disease is [...] provider. Document Revised: 06/19/2022 Document Reviewed: 06/19/2022 TimePad Patient Education 2022 [employer]. 04/14/2024 15:14:23 Stroke Prevention Stroke Prevention Some [...] as: ?Fast walking. ?Biking. ?Swimming. Medicines Take rcln-bke-ubefhor and prescription medicines only as told by [...] blood clot. Where to find more information [place] Stroke Association: www.strokeassociation.org Get help right away [...] provider. Document Revised: 05/21/2021 Document Reviewed: 05/21/2021 TimePad Patient Education 2022 [employer]. 04/14/2024 15:14:19 High Triglycerides Eating Plan High [...] meats. Dairy Whole or reduced-fat (2%) milk. Gica-law-cuvr. Cream cheese. Full-fat or sweetened yogurt. Full-fatcheese. Nondairy creamers. Whipped toppings. Processed cheese or cheese spreads. Cheese curds. Fats and oils Butter. Stick margarine. Lard. Shortening. Ghee. Jaime fat. Tropical oils, such as coconut, palm kernel, or palm oils. Beverages Alcohol. Sweetened drinks, such as soda, lemonade, fruit drinks, or punches. Sweets and desserts Sweetwater syrup. Sugars. Honey. Molasses. Candy. Jam and [...] provider. Document Revised: 03/01/2022 Document Reviewed: 03/01/2022 TimePad Patient Education 2022 [employer]. 04/14/2024 15:14:17 Dyslipidemia Dyslipidemia Dyslipidemia is an [...] help quitting, ask your health careprovider. Take zbbo-rqa-rwuuxlc and prescription medicines only as told by [...] provider. Document Revised: 12/24/2021 Document Reviewed: 12/24/2021 TimePad Patient Education 2022 [employer]. 04/14/2024 15:14:14 Flank Pain, Adult Flank Pain, [...] told by your health care provider. Take gmpm-uqd-qhsyyvy and prescription medicines only as told by [...] provider. Document Revised: 12/31/2021 Document Reviewed: 12/31/2021 TimePad Patient Education 2022 [employer]. 04/14/2024 15:13:13 Vitamin D Deficiency Vitamin D [...] dietitian for more information. General instructions Take mqnw-kzi-dhcprfd and prescription medicines only as told by [...] provider. Document Revised: 07/26/2022 Document Reviewed: 07/26/2022 TimePad Patient Education 2022 [employer] 04/14/2024 15:13:12 Preventing Vitamin D Deficiency [...] Dietary supplements. Direct exposure to natural sunlight. Infant formula, for infants. Knowing how much vitamin [...] such as almond, soy, or oat milks. ?Hardesty juice. ?Margarine. When choosing foods, check the [...] including vitamins, herbs, eye drops, creams, and pikm-rpm-wvepuws medicines. Take qnlt-qsx-nzmbzkx and prescription medicines only as told by [...] Document Reviewed: 07/26/2022 Elsevier Patient Education 2022 [employer]. 04/14/2024 15:13:10 Abrasion Abrasion An abrasion is [...] instructions at home: Medicines Take or apply zucu-zxe-hxgoshb and prescription medicines only as told by [...] provider. Document Revised: 01/18/2021 Document Reviewed: 01/18/2021 TimePad Patient Education 2022 [employer]. 04/14/2024 15:13:02 Cholelithiasis Cholelithiasis Cholelithiasis is a [...] Follow these instructions at home: Medicines Take gmrv-kfl-fqyumvg and prescription medicines only as told by [...] important. Where to find more information National [place] of Diabetes and Digestive and Kidney Diseases: [...] provider. Document Revised: 09/11/2020 Document Reviewed: 09/11/2020 TimePad Patient Education 2022 [employer]. 04/14/2024 14:44:26 Hypertension, Adult Hypertension, Adult High [...] follow-up visits. This is important. Medicines Take diho-kcc-oxcwemg and prescription medicines only as told by [...] provider. Document Revised: 08/27/2022 Document Reviewed: 08/27/2022 [employer]Pad Patient Education 2022 [employer]. 04/14/2024 14:44:20 Form - Blood Pressure Record [...] provider. Document Revised: 07/04/2022 Document Reviewed: 07/04/2022 TimePad Patient Education 2022 [employer]. 04/14/2024 14:44:14 Carbohydrate Counting for Diabetes [...] 1.Identify the foods that contain carbohydrates: Rice. Sweetwater. Milk. Strawberries. 2.Calculate how many servings you [...] and snacks. Where to find more information [place] Diabetes Association: diabetes.org Centers for Disease Control [...] provider. Document Revised: 05/23/2021 Document Reviewed: 05/23/2021 TimePad Patient Education 2022 [employer]. 04/14/2024 14:44:11 Calorie Counting for Weight Loss [...] provider. Document Revised: 11/30/2020 Document Reviewed: 11/30/2020 [employer]Pad Patient Education 2022 [employer]. 04/14/2024 14:44:05 Mediterranean Diet Mediterranean Diet A [...] in common dishes like chili or lasagna. [place] with different cooking methods. Try roasting, [...] available, such as: ?Vegetable sticks with hummus. ?Pakistani yogurt. ?Fruit and nut trail mix. Eat [...] Quinoa. Meats and other proteins Beans. Almonds. [place] seeds. [place] nuts. Peanuts. Cod. Saffell. Scallops. Shrimp. Tuna. Tilapia. Clams. Oysters. Eggs. Poultry without skin. Dairy Low-fat milk. Cheese. Pakistani yogurt. Fats and oils Extra-virgin olive oil. Avocado oil. Grapeseed oil. Beverages Water. Red wine. Herbal tea. Sweets and desserts Pakistani yogurt with honey. Baked apples. Poached pears. Sweetwater mix. Seasonings and condiments Basil. Cilantro. Coriander. [...] Fruit canned in syrup. Vegetables Deep-fried potatoes (thai fries). Grains Prepackaged pasta or rice dishes. [...] provider. Document Revised: 11/24/2020 Document Reviewed: 09/21/2020 TimePad Patient Education 2022 [employer]. Follow Up Care 03/19/2024 16:02:59 With:Beatrice Ingram FAM, MED Address: [facility] [address], [facility] [address]- When:Within 3 Month(s) Comments:f/u labs, HTN, EMphysema, SOB, PFTs, gall bladder and kidney stones. [facility] 05-17-2024 Hospital Discharge instructions Patient [...] things, which may include: Your personality traits. [place] or conditioned behaviors or thoughts or feelings [...] your health care provider. General instructions Take ezsj-fsm-yqaawtn and prescription medicines only as told by your health care provider. Eat a healthy diet and get plenty of sleep. Consider joining a support group. Your health care provider may be able to recommend one. Keep all follow-up visits as told by your health care provider. This is important. Where to find more information National Rosie on Mental Illness: www.anthnoy.org [place] National [place] of Mental Health: www.nimh.nih.gov Contact a health [...] department or: Call your local emergency services (447 in the [place] Call a suicide crisis helpline, such as the National Suicide Prevention Lifeline at or 659 in the [place] This is open 24 hours a day in the [place] Text the Crisis Text Line at 132730 (in the [place] Summary Major depressive disorder [...] provider. Document Revised: 05/15/2022 Document Reviewed: 09/30/2020 TimePad Patient Education 2022 [employer]. 03/19/2024 16:01:34 BMI for Adults BMI for [...] numbers. This can be done either in [place] ([place] or metric measurements. Note that charts and online BMI calculators are available to help you find your BMI quickly and easily without having to do these calculations yourself. To calculate your BMI in [place] ([place] measurements: 1.Measure your weight in pounds [...] Centers for Disease Control and Prevention: www.cdc.gov Syrian Heart Association: www.heart.org National Heart, Lung, and Blood [place]: www.nhlbi.nih.gov Summary Body mass index (BMI) is a number that is calculated from a person's weight and height. BMI may help estimate how much of a person's weight is composed of fat. BMI can help identify thosewho may be at higher risk for certain medical problems. BMI can be measured using [place] measurements or metric measurements. BMI charts are used to identify whether you are underweight, normal weight, overweight, or obese. This information is not intended to replace advice given to you by your health care provider. Make sure you discuss any questions you have with your health care provider. Document Revised: 07/12/2020 Document Reviewed: 05/19/2020 TimePad Patient Education 2022 [employer]. 03/19/2024 16:01:30 Heart Disease Prevention Heart Disease [...] of hard liquor (44 mL). Medicines Take frqh-uzy-trilqjm and prescription medicines only as told by [...] Centers for Disease Control and Prevention: www.cdc.gov/heartdisease [place] Heart Association: www.heart.org Summary Heart disease is [...] provider. Document Revised: 06/19/2022 Document Reviewed: 06/19/2022 TimePad Patient Education 2022 [employer]. 03/19/2024 16:01:30 Familial Hypercholesterolemia Familial Hypercholesterolemia Familial [...] may recommend: ?Working with a diet and nutrition program instructor (dietitian), who can help you make a [...] conditions affect your heart. General instructions Take bwuu-std-zuvoipg and prescription medicines only as told by [...] provider. Document Revised: 12/24/2021 Document Reviewed: 12/24/2021 TimePad Patient Education 2022 [employer]. 03/19/2024 16:01:29 Dyslipidemia Dyslipidemia Dyslipidemia is an [...] help quitting, ask your health careprovider. Take frnk-aut-dwmzpjq and prescription medicines only as told by [...] provider. Document Revised: 12/24/2021 Document Reviewed: 12/24/2021 TimePad Patient Education 2022 [employer]. 03/19/2024 16:01:27 Dietary Guidelines to Help Prevent [...] include: ?8 oz (237 mL) of milk, xwycxgi-mebzlsavtxfh-hprib milk, and calcium- fortifiedfruit juice. Calcium-fortified means [...] ?Spinach (cooked), rhubarb, beets, sweet potatoes, and [place]ican chard. ?Peanuts. ?Potato chips, thai fries, and baked potatoes with skin on. ?Nuts and nut products. ?Chocolate. If you regularly take a diuretic medicine, make sure to eat at least 1 or 2 servings of fruits or vegetables that are high in potassium each day. These include: ?Avocado. ?Banana. ?Hardesty, prune, carrot, or tomato juice. ?Baked potato. [...] magnesium, fish oil, or vitamin B6. Take acyy-pna-aulpyxi and prescription medicines only as told by [...] Casseroles. Pizza. Lasagna. Frozen meals. Potato chips. Australian fries. The items listed above may not [...] provider. Document Revised: 01/30/2023 Document Reviewed: 01/30/2023 TimePad Patient Education 2022 [employer]. 03/19/2024 16:01:22 Heart Disease Prevention Heart Disease [...] of hard liquor (44 mL). Medicines Take zbyw-igf-fbuchzs and prescription medicines only as told by [...] Centers for Disease Control and Prevention: www.cdc.gov/heartdisease Syrian Heart Association: www.heart.org Summary Heart disease is [...] provider. Document Revised: 06/19/2022 Document Reviewed: 06/19/2022 TimePad Patient Education 2022 [employer] 03/19/2024 16:01:22 Form - Blood Pressure [...] provider. Document Revised: 07/04/2022 Document Reviewed: 07/04/2022 TimePad Patient Education 2022 [employer]. 03/19/2024 16:01:21 DASH Eating Plan DASH Eating [...] Dairy Whole or 2% milk, cream, and gpfe-mqf-bfgu. Whole or full-fat cream cheese. Whole-fat or [...] more information National Heart, Lung, and Blood [place]: www.nhlbi.nih.gov Syrian Heart Association: www.heart.org Academy of Nutrition and [...] provider. Document Revised: 09/22/2020 Document Reviewed: 09/22/2020 TimePad Patient Education 2022 [employer]. Follow Up Care 03/16/2024 10:03:20 With:Beatrice Ingram [facility], [facility] Address: [address], [address] [facility] [address] [place] [address]- When:Within 1 Month(s) Comments:f/u labs, HTN, [facility] 02-07-2024 Hospital Discharge instructions Patient [...] of the medicines you are taking, including aiqv-ara-dvricst medicines. Ask your health care provider about [...] feel dizzy, tiredness (fatigue), or off-balance. Take eapd-wff-xbsaurq and prescription medicines only as told by [...] provider. Document Revised: 03/11/2022 Document Reviewed: 03/11/2022 TimePad Patient Education 2022 [employer]. 12/10/2023 17:55:54 Osteopenia Osteopenia Osteopenia is a [...] hard liquor (44 mL). General instructions Take ixbp-dfd-zpbewpx and prescription medicines only as told by [...] provider. Document Revised: 04/05/2021 Document Reviewed: 04/05/2021 TimePad Patient Education 2022 [employer] 12/10/2023 17:55:49 Heart Disease Prevention Heart [...] of hard liquor (44 mL). Medicines Take fayr-tbn-omocspi and prescription medicines only as told by [...] Centers for Disease Control and Prevention: www.cdc.gov/heartdisease Syrian Heart Association: www.heart.org Summary Heart disease is [...] provider. Document Revised: 06/19/2022 Document Reviewed: 06/19/2022 TimePad Patient Education 2022 [employer]. 12/10/2023 17:55:48 DASH Eating Plan DASH Eating [...] Dairy Whole or 2% milk, cream, and naec-tmn-ybnx. Whole or full-fat cream cheese. Whole-fat or [...] more information National Heart, Lung, and Blood [place]: www.nhlbi.nih.gov Syrian Heart Association: www.heart.org Academy of Nutrition and [...] provider. Document Revised: 09/22/2020 Document Reviewed: 09/22/2020 TimePad Patient Education 2022 [employer]. 12/10/2023 17:55:46 Major Depressive Disorder, Adult Major [...] things, which may include: Your personality traits. [place] or conditioned behaviors or thoughts or feelings [...] your health care provider. General instructions Take ywos-aiy-vbardve and prescription medicines only as told by your health care provider. Eat a healthy diet and get plenty of sleep. Consider joining a support group. Your health care provider may be able to recommend one. Keep all follow-up visits as told by your health care provider. This is important. Where to find more information National Rosie on Mental Illness: www.anthony.org [place]. National [place] of Mental Health: www.nimh.nih.gov Contact a health [...] department or: Call your local emergency services (515 in the [place] Call a suicide crisis helpline, such as the National Suicide Prevention Lifeline at or 109 in the [place] This is open 24 hours a day in the [place] Text the Crisis Text Line at 359795 (in the [place] Summary Major depressive disorder [...] provider. Document Revised: 05/15/2022 Document Reviewed: 09/30/2020 TimePad Patient Education 2022 [employer]. 12/10/2023 17:55:43 Fatigue Fatigue If you have [...] Follow these instructions at home: Medicines Take lzlp-gke-yqiwkay and prescription medicines only as told by [...] the National Suicide Prevention Lifeline at or 437. This is open 24 hours a day. Text the Crisis Text Line at 241413. Summary If you have fatigue, you feel [...] provider. Document Revised: 08/12/2022 Document Reviewed: 08/12/2022 TimePad Patient Education 2022 [employer]. Follow Up Care 10/30/2023 15:21:43 With:Beatrice Ingram, [facility], MED Address: [address], [address] [address]- When:Within 4 Week(s) Comments:Follow-up on ultrasound of the kidney, CT chest, lab results, hypertension, smoking sensation, [facility] 02-01-2024 Evaluation + Plan note Future Appointments Appointment Date:12/11/2023 01:45:00 PM Scheduled Provider: Location:FT.OCCUPATIONAL Appointment Type:OT 60 (FT) Appointment Date:12/15/2023 02:15:00 PM Scheduled Provider: Location:.OCCUPATIONAL Appointment Type:OT 60 (FT) Appointment Date:12/16/2023 02:00:00 PM Scheduled Provider: Location:.OCCUPATIONAL Appointment Type:OT 60 (FT) Appointment Date:12/18/2023 08:15:00 AM Scheduled Provider: Location:.OCCUPATIONAL Appointment Type:OT Re-Eval (FT) Appointment Date:01/21/2024 01:40:00 PM Scheduled Provider:Beatrice Ingram Location:[facility] Appointment Type:FM Open Appointment Date:07/13/2024 02:30:00 PM Scheduled Provider: Location:[facility] Appointment Type: Medicare Wellness Subsequent Future [...] w/CAD if perf and 3D Jai 12/10/23 [facility] 12-28-2023 Hospital Discharge instructions Patient [...] do it yourself. Visit the VAERS websiteat www.vaers.[facility].gov or call . VAERS is only for reporting reactions, and VAERS staffdo not give medical advice. 6. How can I learn more? Ask your health care provider. Call your local or state health department. Contact the Centers for Disease Control and Prevention (CDC): ?Call (5-330-XCH-INFO) or ?Visit CDC's website at www.cdc.gov/vaccines Source: CDC Vaccine Information Statement PPSV23 Vaccine (09/01/2019) This same material is available at www.cdc.gov for no charge. This information is not intended to replace advice given to you by your health care provider. Make sure you discuss any questions you have with your health care provider. Document Revised: 09/18/2022 Document Reviewed: 07/22/2022 TimePad Patient Education 2022 [employer] 10/30/2023 15:37:01 Understanding Your Risk for [...] www.cdc.gov Community-Based Fall Prevention Programs: www.cdc.gov National [place] on Aging: www.erich.nih.gov Contact a health care [...] provider. Document Revised: 05/23/2021 Document Reviewed: 05/23/2021 TimePad Patient Education 2022 [employer]. 10/30/2023 15:36:56 Exercising to Lose Weight Exercising [...] your health care provider or diet and nutrition program instructor (dietitian). This may include: ?Eating fewer calories. [...] provider. Document Revised: 12/16/2021 Document Reviewed: 12/16/2021 TimePad Patient Education 2022 [employer]. 10/30/2023 15:36:55 DASH Eating Plan DASH Eating [...] Dairy Whole or 2% milk, cream, and wnhj-mbu-vobr. Whole or full-fat cream cheese. Whole-fat or [...] more information National Heart, Lung, and Blood [place]: www.nhlbi.nih.gov Syrian Heart Association: www.heart.org Academy of Nutrition and [...] provider. Document Revised: 09/22/2020 Document Reviewed: 09/22/2020 TimePad Patient Education 2022 [employer] 10/30/2023 15:36:53 BMI for Adults BMI [...] numbers. This can be done either in [place] ([place] or metric measurements. Note that charts and online BMI calculators are available to help you find your BMI quickly and easily without having to do these calculations yourself. To calculate your BMI in [place] ([place] measurements: 1.Measure your weight in pounds [...] Centers for Disease Control and Prevention: www.cdc.gov Syrian Heart Association: www.heart.org National Heart, Lung, and Blood [place]: www.nhlbi.nih.gov Summary Body mass index (BMI) is a number that is calculated from a person's weight and height. BMI may help estimate how much of a person's weight is composed of fat. BMI can help identify thosewho may be at higher risk for certain medical problems. BMI can be measured using [place] measurements or metric measurements. BMI charts are used to identify whether you are underweight, normal weight, overweight, or obese. This information is not intended to replace advice given to you by your health care provider. Make sure you discuss any questions you have with your health care provider. Document Revised: 07/12/2020 Document Reviewed: 05/19/2020 TimePad Patient Education 2022 [employer]. [facility] 11-30-2023 [facility]Cardiovascular Medicine [facility] SUBJECTIVE No chief complaint on file. RORY [...] 3 months (around 01/01/2024). Dario Vang APRN-[facility] NoteNew patient here to establish care. Ref [...] depression. All other systems reviewed and are negative.[facility] 08-21-2023 Hospital Discharge instructions Patient Education 08/21/2023 15:21:56 Parotitis, Ckby-le-Zrqc Parotitis Parotitis means that you have irritation [...] Follow these instructions at home: Medicines Take vrgg-qjs-rndqhnf and prescription medicines only as told by [...] saliva. Take good care of your mouth: ?[place] your teeth at least two times a [...] away. Call your local emergency services (911 [facility] [place] Do not wait to see if [...] provider. Document Revised: 03/01/2022 Document Reviewed: 03/01/2022 TimePad Patient Education 2022 [employer]. 08/21/2023 15:21:53 Sinus Infection, Adult Sinus Infection, [...] saline washes). ?Medicines that treat allergies (antihistamines). ?Gwpd-oxa-kinuula pain relievers. If caused by bacteria, your [...] at home: Medicines Take, use, or apply jpiv-mat-lfhaeic and prescription medicines only as told by [...] and water are not available, use hand electric knife operator. Do not smoke. Avoid being around people [...] provider. Document Revised: 09/24/2022 Document Reviewed: 09/24/2022 TimePad Patient Education 2022 [employer] Follow Up Care 08/21/2023 13:44:38 With:Martha Hathaway CNP Address:Unknown When: Unknown [facility] 07-07-2022 NotePROCEDURE: XR FOOT RT [...] Electronically authenticated by: DENIA JOHNS Date: 2022-05-09 12:09[facility]06-16-2022 Hospital Discharge instructions Patient Education 04/18/2022 18:27:01 [...] knees and rising up. Do strength and vfpps-mv-frvncy exercises only as told by your health care provider or physical therapist. General instructions Take fyco-ovs-jxyemky and prescription medicines only as told by [...] 11/27/2005 Document Revised: 05/04/2019 Document Reviewed: 05/04/2019 TimePad Patient Education 2020 [employer]. 04/18/2022 18:26:03 Tobacco Use Disorder Tobacco Use [...] reduces withdrawal symptoms. NRT is available as: ?Goot-hih-tocvkmq gums, lozenges, and skin patches. ?Prescription mouth [...] recovery for many people. General instructions Take wzcz-ert-nmehovn and prescription medicines only as told by your health care provider. Check with your health care provider before taking any new prescription or ubje-axq-bnofkfj medicines. Decide on a friend, family member, or smoking quit-line (such as 6-660-TETJ-NOW in the [place] that you can call [...] 06/25/2005 Document Revised: 10/07/2018 Document Reviewed: 10/07/2018 TimePad Patient Education 2020 [employer] 04/18/2022 18:25:59 BMI for Adults BMI [...] height. This can be done either in [place] ([place] or metric measurements. Note that charts are available to help you find your BMI quickly and easily without having to do these calculations yourself. To calculate your BMI in [place] measurements, your health care provider will: [...] medical problems. BMI can be measured using [place] measurements or metric measurements. To interpret your [...] 07/01/2005 Document Revised: 10/02/2018 Document Reviewed: 09/02/2018 TimePad Patient Education 2020 [employer]. 04/18/2022 18:25:57 Vitamin D Deficiency Vitamin D [...] 01/11/2013 Document Revised: 06/28/2019 Document Reviewed: 06/28/2019 TimePad Patient Education 2020 [employer]. 04/18/2022 18:25:50 Managing Anxiety, Adult Managing Anxiety, [...] care provider. Avoid caffeine, alcohol, and certain tehc-dvv-jywjmjo cold medicines. These may make you feel worse. Ask your pharmacist which medicines to avoid. General instructions Take naby-yur-mecfrjx and prescription medicines only as told by [...] Depression Association of [place] (ADAA): www.adaa.org National [place] on Mental Illness (ANTHONY): www.anthony.org Contact a [...] 10/14/2017 Document Revised: 03/21/2020 Document Reviewed: 03/21/2020 TimePad Patient Education 2020 [employer]. 04/18/2022 18:25:47 Major Depressive Disorder, Adult Major [...] your health care provider. General instructions Take nlhk-yep-lvrwzcv and prescription medicines only as told by [...] important. Where to find more information National [place] on Mental Illness www.anthony.org [place] National [place] of Mental Health www.central hospital[facility].nih.gov National Suicide Prevention Lifeline 9-779-923-HNWQ (2704). This is free, 24-hour help. Contact a [...] 02/14/2014 Document Revised: 10/02/2018 Document Reviewed: 04/30/2017 TimePad Patient Education 2020 [employer] 04/18/2022 18:25:41 Dyslipidemia Dyslipidemia Dyslipidemia is [...] quitting, ask your health care provider. Take dxyg-foo-qslwyfb and prescription medicines only as told by [...] 10/25/2014 Document Revised: 06/14/2019 Document Reviewed: 05/21/2019 TimePad Patient Education 2020 [employer]. 04/18/2022 18:25:39 DASH Eating Plan DASH Eating [...] your health care provider or diet and nutrition program instructor (dietitian) to adjust your eating plan to [...] each week. ?Heart-healthy fats. Healthy fats called Cornish-3 fatty acids are found in foods such [...] Dairy Whole or 2% milk, cream, and lqes-mob-uvut. Whole or full-fat cream cheese. Whole-fat or [...] more information: National Heart, Lung, and Blood [place]: www.nhlbi.nih.gov [place] Heart Association: www.heart.org Summary The DASH eating [...] your health care provider or diet and nutrition program instructor (dietitian) to adjust your eating plan to your individual calorie needs. This information is not intended to replace advice given to you by your health care provider. Make sure you discuss any questions you have with your health care provider. Document Released: 10/08/2012 Document Revised: 10/02/2018 Document Reviewed: 10/13/2017 TimePad Patient Education 2020 [employer]. Follow Up Care 04/17/2022 13:33:25 With:Martha Hathaway CNP Address: When:6 months [facility] 06-16-2022 Evaluation + Plan note Future Scheduled Tests Laboratory* Vitamin D 25 Hydroxy 04/18/22 [facility] [place] Evaluation + Plan note Future Appointments Appointment Date:09/06/2022 01:00:00 PM Scheduled Provider: Location:[facility] Appointment Type: Medicare Wellness Subsequent Future Scheduled Tests Radiology* BD Bone Density DEXA 10/03/21 * MA Mamm Screen w/CAD if perf and 3D Jai [facility] App[facility]ments Appointment Date:05/01/2022 02:20:00 PM Scheduled Provider:Leopoldo Sanchez DO Location:[facility] Appointment Type:[facility] Appointment Date:09/06/2022 01:00:00 PM Scheduled Provider: Location:[facility] Appointment Type: Medicare Wellness Subsequent Future Scheduled Tests Laboratory* Vitamin D 25 Hydroxy 04/18/22 Radiology* BD Bone Density DEXA 10/03/21 * MA Mamm Screen w/CAD if perf and 3D Jai 10/03/21 [facility] Evaluation + Plan note Future Appointments Appointment Date:09/17/2023 01:00:00 PM Scheduled Provider: Location:[facility] Appointment Type:FM Medicare Wellness Subsequent [facility] Evaluation + Plan note Future Appointments Appointment Date:11/10/2023 01:15:00 PM [facility]uled [facility]:OT Eval () Appointment Date:12/10/2023 04:00:00 PM Scheduled Provider:Beatrice Ingram Location:[facility] Appointment Type: New Patient - Adult Appointment Date:07/13/2024 02:30:00 PM Scheduled Provider: Location:[facility] Appointment Type: Medicare Wellness Subsequent [facility] Evaluation + Plan note Future Appointments Appointment Date:01/21/2024 01:40:00 PM Scheduled Provider:Beatrice Ingram Location:[facility] Appointment Type: Open Appointment Date:07/13/2024 02:30:00 PM Scheduled Provider: Location:[facility] Appointment Type:FM Medicare Wellness Subsequent Future [...] w/CAD if perf and 3D Jai 12/10/23 [facility] Future Appointments Appointment Date:04/19/2024 03:00:00 PM Scheduled Provider:Beatrice Ingram Location:[facility] Appointment Type: Open Appointment Date:07/13/2024 02:30:00 PM Scheduled Provider: Location:[facility] Appointment Type: Medicare Wellness Subsequent Future [...] w/CAD if perf and 3D Jai 12/10/23 [facility] Primary Care evaluation + Plan note Future Appointments Appointment Date:04/19/2024 02:40:00 PM Scheduled Provider:Beatrice Ingram Location:[facility] Appointment Type:FM Open Appointment Date:07/13/2024 02:30:00 PM Scheduled Provider: Location:[facility] Appointment Type: Medicare Wellness Subsequent Diagnostic Tests Pending * Urine Culture 04/02/24 Future Scheduled Tests Radiology* MA Mamm Screen w/CAD if perf and 3D Jai 12/10/23 [facility] Future Appointments Appointment Date:07/12/2024 02:00:00 PM Scheduled Provider:Antonio FUENTES MD Location:[facility] Appointment Type:URO New Patient Appointment Date:07/13/2024 02:30:00 PM Scheduled Provider: Location:[facility] Appointment Type: Medicare Wellness Subsequent Appointment Date:07/15/2024 02:00:00 PM Scheduled Provider:Beatrice Ingram Location:[facility] Appointment Type: Open Future Scheduled Tests Laboratory* Basic Metabolic Panel 04/14/24 Radiology* MA Mamm Screen w/CAD if perf and 3D Jai 12/10/23 [facility] Primary Care evaluation + Plan note Future Appointments Appointment Date:04/27/2024 02:20:00 PM Scheduled Provider:Aakash Levy MD Location:[facility] Appointment Type:GS New 30 Appointment Date:07/12/2024 02:00:00 PM Scheduled Provider:Antonio FUENTES MD Location:[facility] Appointment Type:URO New Patient Appointment Date:07/13/2024 02:30:00 PM Scheduled Provider: Location:[facility] Appointment Type: Medicare Wellness Subsequent Appointment Date:07/15/2024 02:00:00 PM Scheduled Provider:Beatrice Ingram Location:[facility] Appointment Type:FM Open Future Scheduled Tests Laboratory* Basic Metabolic Panel 04/14/24 Radiology* MA Mamm Screen w/CAD if perf and 3D Jai 12/10/23 [facility] Future Appointments Appointment Date:05/21/2024 10:00:00 AM Scheduled Provider: Location:[facility] Appointment Type:Surgery CALL PAT FT Appointment Date:05/26/2024 08:00:00 AM Scheduled Provider: Location:[facility] Appointment Type:Surgery FT Appointment Date:06/04/2024 08:20:00 AM Scheduled Provider:Aakash Levy MD Location:[facility] Appointment Type:GS Post Op 15 Appointment Date:07/12/2024 02:00:00 PM Scheduled Provider:Antonio FUENTES MD Location:[facility] Appointment Type:URO New Patient Appointment Date:07/13/2024 02:30:00 PM Scheduled Provider: Location:[facility] Appointment Type: Medicare Wellness Subsequent Appointment Date:07/15/2024 02:00:00 PM Scheduled Provider:Beatrice Ingram Location:[facility] Appointment Type: Open Future Scheduled Tests Laboratory* Basic Metabolic Panel 04/14/24 Radiology* MA Mamm Screen w/CAD if perf and 3D Jai 12/10/23 [facility] Evaluation + Plan note Future Appointments Appointment Date:07/13/2024 02:30:00 PM Scheduled Provider: Location:[facility] Appointment Type:FM Medicare Wellness Subsequent Appointment Date:07/15/2024 02:00:00 PM Scheduled Provider:Beatrice Ingram Location:[facility] Appointment Type:FM Open Appointment Date:08/19/2024 08:30:00 AM Scheduled Provider:Lucinda Jin MD Location:[facility] Appointment Type:URO New Patient Future Scheduled Tests Laboratory* Basic Metabolic Panel 04/14/24 Radiology* MA Mamm Screen w/CAD if perf and 3D Jai 12/10/23 [facility] Hospital course Narrative No data available for this section [facility] No data available for this section [facility] No data available for this section [facility] Primary Care Summary Purpose Family History [...] section and content) DATE CREATED AUTHOR 04/29/2018 [facility] DATE CREATED AUTHOR AUTHOR'S ORGANIZ ATION 05/12/2022 [facility] DATE CREATED AUTHOR AUTHOR'S ORGANIZ ATION 10/06/2023 Nadiya herrera DATE CREATED AUTHOR AUTHOR'S ORGANIZ ATION 04/03/2024 [facility] DATE CREATED AUTHOR AUTHOR'S ORGANIZ ATION 04/04/2024 [facility] DATE CREATED AUTHOR AUTHOR'S ORGANIZ ATION 06/07/2024 [facility] DATE CREATED AUTHOR AUTHOR'S ORGANIZ ATION 06/10/[address] [facility] DATE CREATED AUTHOR AUTHOR'S ORGANIZ ATION 07/01/2024 [facility] DATE CREATED AUTHOR AUTHOR'S ORGANIZ ATION 07/13/[address] [facility] DATE CREATED AUTHOR AUTHOR'S ORGANIZ ATION 07/14/[address] [facility] Care Team (unrecognized sect ion and content) Personnel Name: Martha Hathaway CNP Address: [address] [place] [address] [place] Name: Nia Wolff Personnel Name: Martha Hathaway CNP Address: Address: [address] [place] [address] [place] Name: Nia Wolff Personnel Name: Martha Hathaway CNP Address: Address: [address] [place] [address] [place] Name: Nia Wolff Personnel Name: Miguel Atkins MD Address: Address: [address] [place] [address] Name: Nia Wolff Personnel Name: Beatrice Ingram Address: Address: [address] [place] [address] [place] [address]- Name: Nia Wolff Personnel Name: Beatrice Ingram Address: Address: [address] [place] [address] [place] [address]- Name: Nia Wolff Personnel Name: Beatrice Ingram Address: Address: [address] [place] [address] [place] [address]- Name: Nia Wolff Personnel Name: Beatrice Ingram Address: Address: [address] [place] [address] [place] [address]- Name: Nia Wolff Personnel Name: Beatrice Ingram Address: Address: [address] [place] [address] [place] [address]- Name: Nia Wolff Personnel Name: Beatrice Ingram Address: Address: [facility] [address], [place] [address]- Name: Nia Wolff Personnel Name: Cameron ROSEThiagoHernandoBeatrice Address: Address: [facility] [address], [place] [address]- Name: Nia Wolff Personnel Name: Cameron ROSEThiagoHernandoBeatrice Address: Address: [facility] [address], [place] [address]- Name: Nia Wolff Personnel Name: Cameron ROSEThiagoHernandoBeatrice Address: Address: [facility] [address], [facility] [place] [address]- Name: Nia Wolff Personnel Name: Cameron ROSEBeatrice Cho Address: Address: [address] [place], [place] [address]dict [place], [facility] [place] [address]- Name: Nia Wolff FOR RECORDS PERTAINING TO [...] BE BASED ON THE PRIMARY CLINICAL RECORDS. [facility] [employer] [facility]. provides no warranty or guarantee of the accuracy or completeness of information in this document.
--- NOTE | 2024-08-16 09:52 | P.GSHP_ITS ---
History of Present Illness History of Present Illness Chief complaint: Hallux Varus right foot, hammertoes right foot Narrative: Patient presents for preadmission testing. The patient states she had previous bunion surgery in 2019 and has a toe deformity which causes balance issues and pain. She states she has a hard time finding footwear to fit correctly. She is currently not taking any medications to alleviate her discomfort and denies numbness, tingling, weakness, or any other complaints. Review of Systems ROS Narrative REVIEW OF SYSTEMS: Negative except as stated in HPI, ten or more systems reviewed. Constitutional: No fever, chills, weakness ENT: No sore throat or epistaxis Cardiovascular: Chronic dyspnea on exertion and pedal edema; no chest pain Respiratory: Chronic shortness of breath and wheezing; no cough Gastrointestinal: No abdominal pain, constipation, diarrhea, or vomiting Genitourinary: No dysuria or hematuria Neurological: No numbness, tingling, weakness, or headache Psychiatric: No mood changes [facility] Medical History (Updated 08/16/24 @ 09:56 by May Merida NP) Hammertoe ?M20.40 - Other hammer toe(s) (acquired), unspecified foot (ICD-10) Presence of functional implant ?Z96.9 - Presence of functional implant, unspecified (ICD-10) Right foot pain ?M79.671 - Pain in right foot (ICD-10) Acquired deformities of toe(s), unspecified, right foot ?M20.61 - Acquired deformities of toe(s), unspecified, right foot (ICD-10) Hallux varus (acquired), right foot ?M20.31 - Hallux varus (acquired), right foot (ICD-10) Anxiety ?F41.9 - Anxiety disorder, unspecified (ICD-10) Chronic obstructive pulmonary disease ?J44.9 - Chronic obstructive pulmonary disease, unspecified (ICD-10) Complete heart block (05/2024) ?I44.2 - Atrioventricular block, complete (ICD-10) Gallstone ?K80.20 - Calculus of gallbladder without cholecystitis without obstruction (ICD-10) Palpitations ?R00.2 - Palpitations (ICD-10) Extremity edema ?R60.0 - Localized edema (ICD-10) Dyspnea on exertion ?R06.09 - Other forms of dyspnea (ICD-10) Hypertension ?I10 - Essential (primary) hypertension (ICD-10) Pacemaker (05/28/24) ?Z95.0 - Presence of cardiac pacemaker (ICD-10) Arthritis ?M19.90 - Unspecified osteoarthritis, unspecified site (ICD-10) History of blood transfusion ?Z92.89 - Personal history of other medical treatment (ICD-10) Depression ?F32.A - Depression, unspecified (ICD-10) Kidney stones ?N20.0 - Calculus of kidney (ICD-10) Heartburn ?R12 - Heartburn (ICD-10) Postoperative nausea and vomiting ?R11.2 - Nausea with vomiting, unspecified (ICD-10) ?Z98.890 - Other specified postprocedural states (ICD-10) Right radial fracture ?S52.91XA - Unspecified fracture of right forearm, initial encounter for closed fracture (ICD-10) S/P extracorporeal shock wave therapy ?Z98.890 - Other specified postprocedural states (ICD-10) Surgical History (Updated 08/16/24 @ 09:51 by May Merida NP) History of open reduction and internal fixation (ORIF) procedure (~09/2023) ?Z98.890 - Other specified postprocedural states (ICD-10) S/P cystoscopy ?Z98.890 - Other specified postprocedural states (ICD-10) S/P ureteral stent placement ?Z96.0 - Presence of urogenital implants (ICD-10) History of cholecystectomy (05/26/24) ?Z90.49 - Acquired absence of other specified parts of digestive tract (ICD- 10) H/O cataract extraction ?Z98.49 - Cataract extraction status, unspecified eye (ICD-10) History of colonoscopy ?Z98.890 - Other specified postprocedural states (ICD-10) History of laparoscopy ?Z98.890 - Other specified postprocedural states (ICD-10) History of foot surgery ?Z98.890 - Other specified postprocedural states (ICD-10) History of foot surgery ?Z98.890 - Other specified postprocedural states (ICD-10) History of total hip arthroplasty ?Z96.649 - Presence of unspecified artificial hip joint (ICD-10) Family History (Updated 09/29/23 @ 14:01 by May Merida NP) Other Family history of diabetes mellitus Family history of hypertension Family history of skin cancer Family history of stroke Family history of thyroid cancer Social History (Updated 08/16/24 @ 09:25 by May Merida NP) Within the past year, how often did you have a drink containing alcohol: monthly or less Smoking status: Current every day smoker What tobacco products do you use: cigarettes Cigarettes per day: 5 Years smoked: 46 Smoking pack-years: 11.50 Non-prescribed substance use: denies use 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 Highest level of school completed/degree received: high school graduate Meds Home Medications and Allergies Home Medications ?Medication ?Instructions ?Recorded ?Confirmed ?Type duloxetine 60 mg capsule,delayed 60 mg PO DAILY 09/29/23 08/16/24 History release (Cymbalta) albuterol sulfate 90 mcg/actuation 2 inh inhalation Q4H PRN shortness 08/16/24 08/16/24 History aerosol inhaler (Ventolin HFA) of breath or wheezing bupropion HCl 150 mg tablet,12 hr 150 mg PO BID 08/16/24 08/16/24 History sustained-release (Wellbutrin SR) cholecalciferol (vitamin D3) 1,250 1,250 mcg PO QWEEK 08/16/24 08/16/24 History mcg (50,000 unit) capsule lisinopril 20 1 tab PO DAILY 08/16/24 08/16/24 History mg-hydrochlorothiazide 25 mg tablet Allergies Allergy/AdvReac Type Severity Reaction Status Date / Time Iodinated Contrast Media Allergy Hives Verified 09/29/23 13:54 Penicillins Allergy syncope Verified 09/29/23 13:53 Exam Narrative Exam Narrative: Constitutional: Awake, alert, comfortable, well-appearing, nontoxic, interactive, vital signs as charted Head: Normocephalic, atraumatic Neck: Supple, normal appearance, normal range of motion, no meningeal signs, no lymphadenopathy Respiratory: No respiratory distress, breath sounds clear Cardiovascular: Regular rate and rhythm, strong and regular heart tones Musculoskeletal: Obvious deformity right great toe with limited range of motion, right second toe contracture, good capillary refill, sensation intact Skin: No rashes or induration, no lesions, only visible skin inspected Neuro: No neurological deficits, normal sensation Psychiatric: Oriented ?3, normal affect Assessment and Plan Assessment and Plan (1) Hallux varus (acquired), right foot: (2) Acquired deformities of toe(s), unspecified, right foot: (3) Right foot pain: (4) Presence of functional implant: (5) Hammertoe: Plan Right foot metatarsal phalangeal joint fusion, removal of hardware, possible hallux IPJ arthroplasty and extensor tenotomy, bone graft as needed, release of second MPJ capsule scheduled with Dr. Tenorio August 26, 2024.
[2024-08-16 10:21] LABS: Basophils Absolute Auto 0.1 10^3/uL (0.0-0.1); Basophils Percent Auto 0.9 % (0.2-2.0); Eosinophils Absolute Auto 0.3 10^3/uL (0.0-0.7); Eosinophils Percent Auto 3.2 % (0.9-7.0); Hematocrit 47.5 % (36.0-48.0); Hemoglobin 15.2 g/dL (12.0-16.0); Immature Granulocytes Abs Auto 0.03 10^3/uL (0.00-0.03); Immature Granulocytes Pct Auto 0.3 % (0.0-0.5); Lymphocytes Absolute Auto 2.4 10^3/uL (1.2-3.8); Lymphocytes Percent Auto 22.7 % (20.5-60.0); Mean Corpuscular Hemoglobin 31.4 pg (26.7-34.0); Mean Corpuscular Volume 98.1 fL (81.0-99.0); Mean Platelet Volume 9.5 fL (9.5-13.5); Monocytes Absolute Auto 0.8 10^3/uL (0.3-0.8); Monocytes Percent Auto 7.6 % (1.7-12.0); Neutrophils Absolute Auto 6.9 10^3/uL (1.4-6.5); Neutrophils Percent Auto 65.3 % (43.0-75.0); Platelet Count 271 10^3/uL (150-450); Red Blood Count 4.84 10^6/uL (4.20-5.40); Red Cell Distribution Width 12.4 % (11.0-15.0); White Blood Count 10.6 10^3/uL (4.0-11.0)
[2024-08-16 10:31] LABS: INR 1.19; Partial Thromboplastin Time 26.8 sec (22.3-36.2); Prothrombin Time 12.4 sec (9.0-11.6)
[2024-08-16 10:51] LABS: Anion Gap 11.2; BUN Creatinine Ratio 22.1; Calcium 9.6 mg/dL (8.5-10.1); Carbon Dioxide 29.1 mmol/L (21.0-32.0); Chloride 106 mmol/L (98-107); Estimated GFR (African America >60 (>=60 mL/min/1.73m^2); Estimated GFR (Non-African Ame 53 (>=60 mL/min/1.73m^2); Glucose 111 mg/dL (74-106); Potassium 4.3 mmol/L (3.5-5.1); Sodium 142 mmol/L (136-145)
== END 2024-08-16 08:52 | disposition home or self-care (01) ==
LOC: PST 08:51
PROVIDERS: Visit Provider Podiatrist Foot & Ankle Surgery
DX: Z01.812 Encounter for preprocedural laboratory examination (principal); M20.31 Hallux varus (acquired), right foot; M20.41 Other hammer toe(s) (acquired), right foot; I25.10 Atherosclerotic heart disease of native coronary artery without angina pectoris; Z95.0 Presence of cardiac pacemaker
CPT/HCPCS: 80048; 85025; 85610; 85730; G0463

== ENCOUNTER 2024-08-26 06:20 | Day surgery (SDC) | payer MEDICARE, SELFPAY ==
[2024-08-16 09:47] VITALS: BP 125/85; PULSE 90; TEMP 36.3; O2SAT 97; BMI 38.8
[2024-08-26] VITALS (13 sets, daily range): BP systolic 110–133; BP diastolic 60–86; PULSE 72–88; TEMP 36.1–36.2; O2SAT 84–96; BMI 38.3
--- NOTE | 2024-08-26 | FL_ITS ---
[address] [address] Patient Name: MELBA ZAPATA MRN: [id number] date: 1955 Sex: F Assigned Patient Location: SURGOUT Current Patient Location: Accession/Order Number: [id number] Exam Date: 08/26/2024 09:56 Report Date: 08/27/2024 07:14 At the request of: MIGUEL COLEMAN Procedure: FL fluoroscopy <1hr NON-READ EXAM: FL fluoroscopy <1hr NON-READ HISTORY: TECHNIQUE: FINDINGS: Please see Operative Report. Electronically authenticated by: RADIOLOGIST NO Date: 08/27/2024 07:14
--- OUTSIDE RECORDS SUMMARY | 2024-08-26 06:24 | XMS_ITS | CCD ---
Author Organization [facility]ini[facility] Care Team Providers Care Resilient Tile Installer Name Role Phone RUBENS SWARTZ Unavailable Unavailable CHELSEY CAMRYN Rodo Unavailable Unavailable [...] Levy Attending Unavailable JOHANA KELLEY Attending Unavailable COLEMAN, OPAL Referring Unavailable ESME MEJIA Referring Unavailable UNKNOWN, UNKNOWN Referring Unavailable LIOR, CARLOS Admitting Unavailable DEBRA GUZMAN Attending Unavailable NUPUR MCKAY Referring Unavailable BYRON MEJIA Referring Unavailable ESME MEJIA Referring Unavailable MIGUE PUENTES Referring Unavailable MIGUE PUENTES Attending Unavailable DRAIO VANG Attending Unavailable DEBBIE SIGALA Attending Unavailable Ricki VAZQUEZ Attending Unavailable Gilbert Desouza Attending Unavailable Gilbert Desouza Referring Unavailable Beatrice Barnes Referring Unavailable Beatrice Barnes Admitting Unavailable Beatrice Barnes Attending Unavailable Som Willis Attending Unavailable Rai Gordillo Attending Unavailable Wilbert, Miguel Attending Unavailable Beatrice Barnes Attending Unavailable Wilbert, Miguel Attending Unavailable Beatrice Barnes Attending Unavailable Beatrice Barnes Attending Unavailable Beatrice Barnes Attending Unavailable Wilbert, Miguel Attending Unavailable Lucinda Jin Admitting Unavailable Lucinda Jin Attending Unavailable Lucinda Jin Referring Unavailable Lucinda Jin Admitting Unavailable Lucinda Jin Attending Unavailable Lucinda Jin Attending Unavailable Allergies Allergy Classification Reported Allergen(s) Allergy Type Date of Onset Reaction(s) Facility [facility] (1 source) Contrast media Substance Allergy Swelling (finding) [facility] Penicillins (antibiotic) (1 source) Penicillins; Translations: [penicillins] Drug Allergy H/O: blackout (context-depend ent category) [facility] (20 sources) Contrast media; Translations: [CONTRAST DYE] Propensity to adverse reactions to drug (disorder) 7 Swelling (finding) [facility] (20 sources) Penicillins; Translations: [PENICILLINS] Propensity to adverse reactions to drug (disorder) 7 H/O: blackout (context-depend ent category) [facility] (20 sources) adhesives; Translations: [adhesives] Allergy to substance redness [facility] (1 source) Iodine (And Iodine Containting Drugs) Drug allergy (disorder) 6 [facility] (1 source) Latex; Translations: [LATEX] Propensity to adverse reactions to drug (disorder) 4 [facility] Rep[facility] (1 source) IODINATED CONTRAST MEDIA; Translations: [IODINATED CONTRAST MEDIA] Propensity to adverse reactions to drug (disorder) 7 [facility] Repository Medications Current Medications Medication Drug Class(es) Dates Sig (Normalized) Sig (Original) acetaminophen 325 mg / HYDROcodone bitartrate 5 mg oral tablet (2 sources) Opioid Agonist Start: 05-26-2024 End: 05-28-2024 [place] 325 mg-5 mg oral tablet 1 tab(s), Oral, q6hr as needed for pain, 10 tab(s), Refill(s) 0, [facility], 166, cm, 05/26/24 6:21:00 EDT, Height/Length Dosing, 104.7, kg, 05/26/24 6:21:00 EDT, Weight Dosing Start Date: 05/26/24 Stop Date: 05/28/24 Status: Ordered Albuterol (Eqv-ProAir HFA) 90 mcg/inh inhalation aerosol (9 sources) Start: 04-14-2024 take 2 puff(s) by inhalation every six hours Albuterol (Eqv-ProAir HFA) 90 mcg/inh inhalation aerosol 2 puff(s), Inhalation, q6hr, 18 gm, Refill(s) 6, [facility], 162.2, cm, 04/14/24 14:03:00 EDT, Height/Length Dosing, 104.9, kg, 04/14/24 14:03:00 EDT, Weight Dosing Start Date: 04/14/24 Status: Ordered amLODIPine 5 mg oral tablet (1 source) Dihydropyridine Calcium Channel Cyrus Start: 05-17-2020 take 1 tablet by mouth once daily Norvasc 5 mg Tab 5 mg = 1 tab(s), Oral, Daily, # 90 cap(s), Refills(s) 3, Pharmacy: [facility], 170.1, cm, 12/28/19 11:34:00 EST, Height/Length Measured, 106, kg, 10/06/19 11:07:00 EST, Weight Measured Start Date: 05/17/20 Status: Ordered 12 hr buPROPion hydrochloride 150 mg extended release oral tablet (13 sources) Aminoketone Start: 03-19-2024 take 1 tablet by mouth twice daily Wellbutrin SR 150 mg Tab-ER 150 mg = 1 tab(s), Oral, BID, # 180 tab(s), Refills(s) 0, Pharmacy: [facility], 162.2, cm, 03/19/24 15:05:00 EDT, Height/Length Dosing, 103.9, kg, 03/19/24 15:05:00 EDT, Weight Dosing Start Date: 03/19/24 Status: Ordered Start: 12-10-2023 take 1 tablet by poncho twice daily Wellbutrin SR 150 mg Tab-ER 150 mg = 1 tab(s), Oral, BID, # 180 tab(s), Refills(s) 0, Pharmacy: [facility], 162.2, cm, 12/10/23 16:44:00 EST, Height/Length Dosing, 100.6, kg, 12/10/23 16:44:00 EST, Weight Dosing Start Date: 12/10/23 Status: Ordered cholecalciferol 1.25 mg oral capsule (10 sources) Vitamin D Start: 04-14-2024 cholecalcifero l 50,000 intl units oral capsule 1,250 mcg = 1 cap(s), Oral, q7day, # 12 cap(s), Refills(s) 0, Pharmacy: [facility], 162.2, cm, 04/14/24 14:03:00 EDT, Height/Length Dosing, 104.9, kg, 04/14/24 14:03:00 EDT, Weight Dosing Start Date: 04/14/24 Status: Ordered Start: 04-18-2022 End: 08-16-2022 take 1 capsule by mouth once daily at mealtime cholecalciferol 2000 intl units oral capsule 50 mcg = 1 cap(s), Oral, Daily, with food., X 60 day(s), # 90 cap(s), Refills(s) 1, Pharmacy: [facility], 163.8, cm, 04/18/22 15:45:00 EDT, Height/Length [...] day(s), # 14 cap(s), Refills(s) 0, Pharmacy: [facility], 167, cm, 08/21/23 14:00:00 EDT, Height/Length Dosing, 100, kg, 08/21/23 14:00:00 EDT, Weight Dosing Start Date: 08/21/23 Stop Date: 08/28/23 Status: Ordered DULoxetine 60 mg delayed release oral capsule (17 sources) Serotonin and Norepinephrine Reuptake Inhibitor Start: 03-19-2024 take 1 capsule by mouth once daily duloxetine 60 mg oral delayed release capsule 60 mg = 1 cap(s), Oral, Daily, # 90 cap(s), Refills(s) 0, Pharmacy: [facility], 166, cm, 08/19/24 8:53:00 EDT, Height/Length Dosing, 108, kg, 08/19/24 8:53:00 EDT, Weight Dosing Start Date: 08/20/24 Status: Ordered Start: 12-10-2023 take 1 capsule by [facility] once daily duloxetine 60 mg oral delayed release capsule 60 mg = 1 cap(s), Oral, Daily, # 90 cap(s), Refills(s) 0, Pharmacy: [facility], 162.2, cm, 12/10/23 16:44:00 EST, Height/Length Dosing, 100.6, kg, 12/10/23 16:44:00 EST, Weight Dosing Start Date: 12/10/23 Status: Ordered Start: 08-12-2023 take 1 capsule by [facility] once daily duloxetine 60 mg oral delayed release capsule 60 mg = 1 cap(s), Oral, Daily, # 90 cap(s), Refills(s) 0, Pharmacy: [facility], 163, cm, 10/21/22 13:43:00 EST, Height/Length Dosing, 98.4, kg, 10/21/22 13:43:00 EST, Weight Dosing Start Date: 08/12/23 Status: Ordered Start: 04-18-2022 take 1 capsule by [facility] once daily DULoxetine 60 mg Cap-EC 60 mg = 1 cap(s), Oral, Daily, # 90 cap(s), Refills(s) 3, Pharmacy: [facility], 163.8, cm, 04/18/22 15:45:00 EDT, Height/Length Dosing, 93.7, kg, 04/18/22 15:45:00 EDT, Weight Dosing Start Date: 04/18/22 Status: Ordered Start: 05-18-2020 take 1 capsule by [facility] once daily DULoxetine 40 mg oral delayed release capsule 40 mg, Oral, Daily, # 90 cap(s), Refills(s) 1, Pharmacy: [facility], 170.1, cm, 05/18/20 17:03:00 EDT, Height/Length Measured, 112.3, kg, 05/18/20 17:35:00 EDT, Weight Measured Start Date: 05/18/20 Status: Ordered DULoxetine 60 mg Cap-EC (2 sources) Start: 05-02-2022 take 1 capsule by mouth once daily DULoxetine 60 mg Cap-EC 60 mg = 1 cap(s), Oral, Daily, # 90 cap(s), Refills(s) 3, Pharmacy: [facility]/pharmacy #[id number], 163.8, cm, 04/18/22 15:45:00 EDT, Height/Length Dosing, 93.7, kg, 04/18/22 15:45:00 EDT, Weight Dosing Start Date: 05/02/22 Status: Ordered Start: 08-30-2021 take 1 capsule by [facility] once daily DULoxetine 60 mg Cap-EC 60 mg = 1 cap(s), Oral, Daily, # 30 cap(s), Refills(s) 6, Pharmacy: [facility], 170, cm, 08/30/21 14:36:00 EDT, Height/Length Dosing, 89.2, kg, 08/30/21 14:36:00 EDT, Weight Dosing Start Date: 08/30/21 Status: Ordered fluticasone propionate 0.05 mg/actuat metered dose nasal spray (2 sources) Corticosteroid Start: 10-21-2022 take 1 spray(s) nasal route twice daily Flonase 0.05 mg/inh [place] 1 spray(s), Nasal, BID, 16 gram, Refill(s) 0, each nostril, [facility], 163, cm, 10/21/22 13:43:00 EST, Height/Length Dosing, 98.4, kg, 10/21/22 13:43:00 EST, Weight Dosing Start Date: 10/21/22 Status: Ordered Start: 10-26-2020 fluticasone 0. 05 mg/inh Nasal [place] 2 spray(s), Nasal, Daily Congestion, 16 gram, Refill(s) 1, each nostril, [facility], 170, cm, 10/26/20 7:12:00 EST, Height/Length Dosing, 102, kg, 10/26/20 7:12:00 EST, Weight Dosing Start Date: 10/26/20 Status: Ordered fluticasone 0.05 mg/inh Nasal [place] (1 source) Start: 10-26-2020 fluticasone 0. 05 mg/inh Nasal [place] 2 spray(s), Nasal, Daily Congestion, 16 gram, Refill(s) 1, each nostril, [facility], 170, cm, 10/26/20 7:12:00 EST, Height/Length Dosing, 102, kg, 10/26/20 7:12:00 EST, Weight Dosing Start Date: 10/26/20 Status: Ordered hydroCHLOROthiazide 25 mg / lisinopril 20 mg oral tablet (11 sources) Thiazide Diuretic, Angiotensin Converting Enzyme Inhibitor Start: 04-14-2024 hydrochlorothiazide- lisinopril 25 mg-20 mg Tab 1 tab(s), Oral, Daily, 90 tab(s), Refill(s) 0, [facility], 162.2, cm, 04/14/24 14:03:00 EDT, Height/Length Dosing, 104.9, kg, 04/14/24 14:03:00 EDT, Weight Dosing Start Date: 04/14/24 Status: Ordered Start: 03-19-2024 hydrochlorothi azide-lisinopril 12.5 mg-10 mg Tab 1 tab(s), Oral, Daily, 90 tab(s), Refill(s) 0, [facility], 162.2, cm, 03/19/24 15:05:00 EDT, Height/Length Dosing, 103.9, kg, 03/19/24 15:05:00 EDT, Weight Dosing Start Date: 03/19/24 Status: Ordered Incruse Ellipta 62.5 mcg inhalation powder (2 sources) Start: 04-16-2024 Incruse Ellipta 62.5 mcg inhalation powder = 1 inh, Inhalation, q24hr, # 30 blister(s), Refills(s) 2, Pharmacy: [facility], 162.2, cm, 04/14/24 14:03:00 EDT, Height/Length Dosing, 104.9, kg, 04/14/24 14:03:00 EDT, Weight Dosing Start Date: 04/16/24 Status: Ordered Mucinex DM 30 mg-600 mg Tab-ER (1 source) Start: 10-21-2022 End: 10-24-2022 Mucinex DM 30 mg-600 mg Tab-ER 1 tab(s), Oral, q12hr Congestion for 3 day(s), 6 tab(s), Refill(s) 0, [facility], 163, cm, 10/21/22 13:43:00 EST, Height/Length Dosing, 98.4, kg, 10/21/22 13:43:00 EST, Weight Dosing Start Date: 10/21/22 Stop Date: 10/24/22 Status: Ordered 24 hr nicotine 0.292 mg/hr transdermal system (11 sources) Cholinergic Nicotinic Agonist Start: 03-19-2024 nicotine 7 mg/24 hr Transderm ER Film 1 patch(es), Topical, Daily, 30 EA, Refill(s) 1, [facility], 162.2, cm, 03/19/24 15:05:00 EDT, Height/Length Dosing, 103.9, kg, 03/19/24 15:05:00 EDT, Weight Dosing Start Date: 03/19/24 Status: Ordered ondansetron 4 mg oral tablet (13 sources) Serotonin-3 Receptor Antagonist Start: 12-10-2023 take 1 tablet by mouth every eight hours as needed for nausea Zofran 4 mg Tab 4 mg = 1 tab(s), Oral, q8hr, PRN Nausea/Vomiting, # 12 tab(s), Refills(s) 0, Pharmacy: [facility], 162.2, cm, 12/10/23 16:44:00 EST, Height/Length [...] Daily, # 30 cap(s), Refills(s) 0, Pharmacy: [facility], 162.2, cm, 04/14/24 14:03:00 EDT, Height/Length Dosing, 104.9, kg, 04/14/24 14:03:00 EDT, Weight Dosing Start Date: 04/14/24 Status: Ordered Completed/Discontinued Medications Medication Drug Class(es) Dates Sig (Normalized) Sig (Original) Blood pressure cuff (3 sources) Start: 08-30-2021 Blood pressure cuff Blood pressure cuff, See Instructions, 1 EA, 0, Please dispense 1 blood pressure cuff., [facility], Supply, 170, cm, 08/30/21 14:36:00 EDT, Height/Length Dosing, 89.2, kg, 08/30/21 14:36:00 EDT, Weight Dosing Start Date: 08/30/21 Status: Ordered Problems Active Problems Problem Classification Problem Date Documented Date Episodic/Chronic Abdominal pain (19 sources) Flank pain; Translations: [Abdominal pain] Onset: 04-14-2024 08-24-2019 Episodic Anxiety disorders (19 sources) Anxiety; Translations: [Anxiety disorder] Onset: 04-17-2022 05-25-2019 Chronic Asthma (18 sources) Asthma 12-14-2018 Chronic Biliary tract disease (17 sources) Cholelithiasis without obstruction; Translations: [Calculus of gallbladder without cholecystitis without obstruction] Onset: 12-10-2023 Episodic Calculus of urinary tract (20 sources) Kidney stone; Translations: [Calculus of kidney] Onset: 12-10-2023 09-21-2019 Episodic Chronic obstructive pulmonary disease and bronchiectasis (10 sources) Pulmonary emphysema; Translations: [Emphysema, unspecified] Onset: 04-14-2024 Chronic Conditions associated with dizziness or vertigo (2 sources) Dizziness and giddiness; Translations: [Dizziness and giddiness] Onset: 05-26-2024 Episodic Conduction disorders (7 sources) Complete atrioventricular block; Translations: [Atrioventricular block, complete] Onset: 05-14-2024 Chronic Diabetes mellitus without complication (20 sources) Hyperglycemia; Translations: [Hyperglycemia, unspecified] Onset: 10-30-2023 05-25-2019 Episodic Diseases of mouth; excluding dental (1 source) Sialoadenitis; Translations: [Sialoadenitis, unspecified] Onset: 08-21-2023 Episodic Disorders of lipid metabolism (20 sources) Mixed hyperlipidemia; Translations: [Mixed hyperlipidemia] Onset: [...] radius fx Genitourinary symptoms and ill-defined conditions (18 sources) Urge incontinence of urine 04-28-2019 Chronic Genitourinary symptoms and ill-defined conditions (20 sources) Nocturia; Translations: [Urgent desire to urinate] Onset: 08-19-2024 04-28-2019 Episodic Headache; including migraine (14 sources) Headache; Translations: [Headache, unspecified] Onset: 12-10-2023 Episodic Hypertension with complications and secondary hypertension (2 sources) Hypertensive heart disease without heart failure; Translations: [Hypertensive heart disease without heart failure] Onset: 10-02-2023 Chronic Immunizations and screening for infectious disease (2 sources) Vaccination given; Translations: [Encounter for immunization] Onset: 10-30-2023 Episodic Malaise and fatigue (14 sources) Fatigue; Translations: [Other fatigue] Onset: 12-10-2023 Episodic Mood disorders (20 sources) Depressive disorder; Translations: [Major depressive disorder] Onset: 04-17-2022 05-25-2019 Chronic Comment on above: Added per Anali freed response, per outpatient CDI policy. Nutritional deficiencies (20 sources) Vitamin D deficiency; Translations: [Vitamin D deficiency, unspecified] Onset: 04-18-2022 05-25-2019 Chronic Osteoarthritis (18 sources) Osteoarthritis of hip 08-09-2019 Chronic Other aftercare (2 sources) Encounter for other specified surgical aftercare; Translations: [Encounter for other specified surgical aftercare] Onset: 06-07-2024 Episodic Other bone disease and musculoskeletal deformities (18 sources) Osteopenia 06-03-2019 Episodic Other bone disease and musculoskeletal deformities (2 sources) Disorder of bone; Translations: [Other specified disorders of bone density and structure, unspecified site] Onset: 10-30-2023 Episodic Other connective tissue disease (4 sources) Pain in right foot; Translations: [PAIN IN RIGHT FOOT] Onset: 05-08-2022 Episodic Other diseases of kidney and ureters (18 sources) Hydronephrosis 09-21-2019 Episodic Other diseases of kidney and ureters (1 source) Urinary tract obstruction; Translations: [Hydronephrosis with renal and ureteral calculous obstruction] Onset: 03-19-2024 Episodic Other injuries and conditions due to external causes (1 source) Personal history of (healed) traumatic fracture; Translations: [Personal history of (healed) traumatic fracture] Onset: 10-03-2023 Episodic Other non-traumatic joint disorders (18 sources) Hip pain 05-25-2019 Episodic Other nutritional; endocrine; and metabolic disorders (19 sources) Body mass index 30+ - obesity [...] Chronic Other nutritional; endocrine; and metabolic disorders (13 sources) Severe obesity 12-10-2023 Chronic Comment on above: Added per Anali fered response, per outpatient CDI policy. Other nutritional; endocrine; and metabolic disorders (8 sources) Body mass index 40+ - severely obese; Translations: [Body mass index (BMI) 40.0-44.9, adult] Onset: 04-27-2024 Chronic Other skin disorders (18 sources) Mucous membrane dryness 09-24-2021 Episodic Other upper respiratory disease (1 source) Nasal congestion; Translations: [Nasal congestion] Onset: 10-21-2022 Episodic Other upper respiratory disease (16 sources) Congestion of nasal sinus 10-21-2022 Episodic Other upper respiratory infections (1 source) Chronic sinusitis; Translations: [Chronic sinusitis, unspecified] Onset: 08-21-2023 Chronic Residual codes; unclassified (18 sources) Tobacco user 08-30-2021 Episodic Residual codes; [...] systems] Onset: 12-10-2023 Episodic Residual codes; unclassified (13 sources) Family history of malignant neoplasm of thyroid 12-10-2023 Episodic Residual codes; unclassified (9 sources) Requires a tetanus booster 04-14-2024 Episodic Screening and history of mental health and substance abuse codes (13 sources) Tobacco use and exposure - finding [...] Systemic lupus erythematosus and connective tissue disorders (18 sources) Systemic sclerosis 03-22-2019 Chronic Comment on above: inactive Unclassified (18 sources) Clinical finding absent 08-30-2021 Unclassified (20 sources) Patient encounter status 12-10-2023 Unclassified (9 sources) Abrasion of skin of right lower [...] Name Value Interpretation Reference Range Facil ity XR Abdomen 1 Viewon 08-20-20 24 XR Abdomen 1 View Exam Date/Time: 08/18/2024 14:06 EDT Reason for Exam: N20.0;Kidney stone Report IMPRESSION: LEFT RENAL CALCULI. RESOLUTION RIGHT RENAL CALCULUS. CLINICAL HISTORY: Kidney stone, N20.0 COMPARISON: NONE. FINDINGS: Previously visualized 0.5 cm calculus overlying lower pole right. No calcifications currently demonstrated overlying right kidney. Left kidney now shows millimeter calculus overlying mid to lower pole, with second 6 mm calculus lying just inferior to it. No calculi identified overlying the expected course bilateral ureters. Lumbar scoliosis convexity to left apex L4. Bipolar left hip replacement. Gas and stool in colon. No diffuse small bowel dilatation or mass effect. Ordering Provider: Lucinda Jin FINAL REPORT Dictated: 08/20/2024 5:45 pm Levi Bentley MD Signed (Electronic Signature): 08/20/2024 5:45 pm Signed by: Levi Bentley MD Transcribed by: PRIMO Technologist: HILDA Technical Comments Radiation Dose: carola Kwan in mGy = na DAP = na Normal [facility] Ambulatory Visit Summaryon 1 Ambulatory Visit Summary Ambulatory Visit Summary MELBA ZAPATA :1955 Visit Date:08/19/2024 Ambulatory Visit Instructions Your Diagnosis Kidney stones History of UTI Your Care Team Attending Physician - Lucinda Jin MD Primary Care Physician - Cameron SUGGS, Beatrice Valdez This Is Your Medications List Contact prescribing physician if questions or concerns albuterol (Albuterol (Eqv-ProAir HFA) 90 mcg/inh inhalation [...] Suspension of bladder, TUBAL LIGATION. Discharge Vitals Height 166 cm Height 65 in Weight 108 kg Weight 237.6 lb BMI 39.19 What to do next You Need to Schedule the Following Appointments Follow Up with Davin CONSTANTINO, Lucinda Ortiz, URL, URO When: Where: You Need to Complete the Following CT Abdomen/Pelvis w/o Contrast, 08/19/24, Routine, Order for future visit, Transport Mode: Ambulatory, Reason: Other (please specify), Reason: Kidney stones, No, Yes, Kidney stones, Stone protocol, pp_set_radiology_subspeci alty, Not Required, [facility] Medications What How Much When Why Instructions Unchanged albuterol (Albuterol (Eqv-ProAir HFA) 90 mcg/ inh inhalation aerosol) 2 Puffs Inhalation Every 6 hours Emphysema of lung Contact prescribing physician if questions or concerns Unchanged buPROPion (Wellbutrin SR 150 mg Tab-ER) 1 Tablets By Mouth 2 times a day Depression Other obesity Personal history of tobacco use Contact prescribing physician if questions or concerns Unchanged cholecalciferol (cholecalciferol 50,000 intl units oral capsule) 1 Capsules By Mouth Every 7 days Vitamin D deficiency Contact prescribing physician if questions or concerns Unchanged duloxetine (duloxetine 60 mg oral delayed release capsule) 1 Capsules By Mouth Every day Anxiety Depression Contact prescribing physician if questions or concerns Unchanged hydrochlorothiazide-lisin opril (hydrochlorothiazide-curtis nopril 25 mg-20 mg Tab) 1 Tablets By Mouth Every day Benign essential HTN Contact prescribing physician if questions or concerns Unchanged nicotine (nicotine 7 mg/ 24 hr Transderm ER Film) 1 Patches Topical Every day Personal history of tobacco use Contact prescribing physician if questions or concerns Unchanged ondansetron (Zofran 4 mg Tab) 1 Tablets By Mouth Every 8 hours as needed for Nausea/Vomiting Worsening headaches Contact prescribing physician if questions or concerns Allergies Contrast Dye (Swelling, Hives) adhesives (redness) [...] stones Herniated cervical disc Hip pain, left History of UTI Hydronephrosis Hyperglycemia Hyperlipidemia Kidney stones Major depressive [...] Asthma BMI 37.0-37.9, adult Sicca syndrome Sinus congest (more content not included)... Normal [facility] Urology Office/Clinic Noteon 08-19-2024 Urology Office/Clinic Note Urology Office/Clinic Note Chief Complaint New Pt HPI Staff Prior Dr. Ibarra pt. Last seen 09/21/19, pt was to follow up in 6 months w/ [facility]UB. Failed to follow up. Here to establish care for kidney stones. Abdominal US 04/02/24 [facility] done 08/18/24 Dysuria: no Incomplete bladder emptying: no, PVR 0mL Hematuria: no Frequency: 2-3 hours Urgency: yes Nocturia: 0-1x's Stream: good stream Post void dripping: no Wearing pads/ Depends: occasionally will wear a pad Urge incontinence: yes Stress incontinence: yes Incontinence without Sensory Awareness: no Abdominal pain: occasionally Flank pain: occasionally will have Rt. flank pain History of Present Illness Tests reviewed: reviewed UA, abdominal US, KUB image, labs, 24 hour urine, external records. I have reviewed the previous health record information and history for this patient from Dr. Ibarra. I have reviewed and verified the staff HPI to be accurate for this encounter. There have been no associated fever, chills, flank pain, or blood in the urine. Denies any urinary infections since last encounter. Review of Systems PHQ Score Initial Depression Screen Score: 0 SCORE ROS - Provider Constitutional: denies weight loss, denies hot flashes. Eyes: denies eye problems. Gastrointestinal: denies nausea, denies vomiting. Cardiovascular: denies chest pain or angina. Integumentary: no dryness Musculoskeletal: denies musculoskeletal symptoms. ENMT: denies otolaryngeal symptoms. Respiratory: no shortness of breath. Heme/Lymph: denies easy bleeding tendency, denies easy bruising tendency. Psychiatric: no confusion, no anxiety. Genitourinary: See HPI. Physical Exam Vitals & Measurements HT: 65 in HT: 166 cm WT: 108 kg WT: 237.6 lb BMI: 39.19 General Appearance: alert , no acute distress, well nourished, well developed female. Head: normocephalic . Eyes: normal orbit and globe. ENMT: normal examination of external ears. Skin: warm, dry, no bruising. Psychiatric: cooperative, affect appropriate for age, normal judgement, euthymic mood. Assessment/Plan 69 yo female new to our office to reestablish care for kidney stones. Prior Dr. Ibarra pt. Last seen 09/21/19, pt was to follow up in 6 months w/ KUB. Failed to follow up. Has a pacemaker. Not on AC. BBSQ 23 Portions of this record may have been created with voice recognition artificial intelligence software, specifically [employer], [employer] and or better.. Substitutions may have occurred due to the inherent limitations of voice recognition and artificial intelligence software. 1. Kidney stones (N20.0: Calculus of kidney) Reports she has never passed a stone naturally. Mentions she has had 4 stones. Pt states she has also seen Dr. Henry and Dr. Fuentes. Pt states that Dr. Henry referred her to [facility] due to not being able to reach the stone. Reports she had a stent for 3 months. Pt states she also had a biopsy done due to the way her tissue looked. Pt states she has had an ESWL in the past. Pt states she has always required a stent. S/p cysto, L RGP, stone extraction with basket, L stent placement 03/22/19. S/p cysto w/ L stent removal 04/01/19. Stone analysis 03/22/19 ~25% ca ox dihydrate, 50% ca ox monohydrate, 25% calcium phosphate. Completed 24 hour urine 04/2019 ~ total volume 1,250, high PTH 67 and low urine citrate 224. Abdominal US 04/02/24 [facility] [place] A shadowing focus within the mid aspect of the left kidney measures approximately 1.3 cm and likely represents a nonobstructing calculus. No hydronephrosis. Pt called our office 04/07/24 stating that her primary care ordered imaging and kidney stones were mentioned. Pt subsequently scheduled an appt with our office. JUNIOR 08/18/24 [facility] [place] report pending dictation. Upon personal review, there appears to be two large stones on the left 6x9 mm each I reviewed prior metabolic workup with patient. Discussed general dietary modifications for further stone prevention. Goal is 2 L of water daily with 3/4 cup of diluted lemon. Discussed management options including intervention including extracorporeal shockwave lithotripsy vs ureteroscopy with laser lithotripsy/stone basket extraction possible stent. Risks/benefits of each were discussed including but not limited to: ESWL- bleeding, hematoma, pain, infection, inability to break up the stone, ureteral obstruction, cardiac arrhythmias, damage to surrounding structures and need for additional procedures; ureteroscopy - bleeding, pain, infection, damage to surrounding structures, ureteral perforation, stricture, inability to treat the stone and need for additional procedures. If a stent is placed, pt understands this is not permanent and needs to be removed or exchanged within 3 months to prevent encrustation, infection, permanent renal damage and need for more invasive procedures. A CT is recommended for further information. Pt agrees with plan. -Dietary modifications, (more content not included)... Normal [facility] Comment on above: Result Comment: Elec tronically Signed By: Lucinda Jin MD\.br\Date and Time Signed: 08/19/24 12:38 EDT\.br\Electronically Co-Signed By: Michela Diaz\.br\Date and Time Co-Signed: 08/19/24 09:25 EDT\.br\Electronically Co-Signed By: Michela Diaz\.br\Date and Time Co-Signed: 08/19/24 09:27 EDT Office Visiton 06-29-2024 Follow-up visit [id number] Diana Zapata 1955 F Date Provider Department Center 06/29/2024 Gold-MIGUE PUENTES JACKIE Martino [facility] Family History Problem Relation Age of Onset Atrial fibrillation Mother Diabetes Mother Other Mother Transient ischemic attack Father Stroke Maternal Grandmother Family Status - Relation Status Age at Mother Father Maternal Grandmother Level of Service:62835 MT OFFICE/OUTPATIENT NEW MODERATE MDM 45 MINUTES Normal [facility] General Surgery Office/Clini c Noteon 06-08-2024 General Surgery Office/Clinic Note General Surgery Office/Clinic Note Chief Complaint s/p cholecystectomy HPI Staff Melba is a 69 y.o. female here for s/p cholecystectomy done 05/26/24 Patient presented to [facility] on 05/26/24 with failed heart monitor- complete heart block Patient is healing well. s/p pacemaker done 05/26/24 History of Present Illness Consent: The patient or their guardian verbally consented to allow [employer] to record this visit. Melba Zapata is a 69-year-old female status post robotic assisted laparoscopic cholecystectomy performed on 05/26/2024. The patient was found to be in heart block in the postoperative and was referred to the emergency department where she was subsequently transferred to [facility] for a pacemaker placement on 05/27/2024. The patient has been doing well. She reports no pain from the operation, and did not require any pain medication. However, she continues to experience soreness from the pacemaker insertion procedure conducted at [facility]. 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 Review of Systems ROS [...] with voice recognition artificial intelligence software, specifically Transparentrees, Stepcase and or better.. Substitutions may have occurred due to the inherent limitations of voice recognition and artificial intelligence software. ATTESTATION: Documentation services were performed after patient or guardian consented to allow [employer] to record this visit. MICKY market research specialist and provider reviewed before signing. MICKY: LENARD Burnett. Follow-up No qualifying data available Follow up as needed and to consult with her marine transport professionals as regularly scheduled. Problem List/Past Medical History [...] abuse Procedure/Surgic (more content not included)... Normal [facility] Comment on above: Result Comment: Elec tronically Signed By: Mildred CONSTANTINO, Aakash Briones\.br\Date and Time Signed: 06/08/24 08:54 EDT\.br\Electronically Co-Signed By: Hortencia Sterling\.br\Date and Time Co-Signed: 06/04/24 11:16 EDT Office Visiton 06-07-2024 Follow-up visit [id number] Diana Zapata 1955 F Date Provider Department Center 06/07/2024 271-JOHANA KELLEY CARD [place] [facility] Family History Problem Relation Age of Onset Atrial fibrillation Mother Diabetes Mother Other Mother Transient ischemic attack Father Stroke Maternal Grandmother Family Status - Relation Status Age at Mother Father Maternal Grandmother Level of Service:32063 MT OFFICE/OUTPATIENT ESTABLISHED SF MDM 10 MIN Normal [facility] Ambulatory Visit Summaryon 0 06-04-2024 Ambulatory Visit Summary Ambulatory Visit Summary MELBA ZAPATA :1955 Visit Date:06/04/2024 Ambulatory Visit Instructions Your Diagnosis Gall stones Your Care Team Attending Physician - Aakash Levy MD Primary Care Physician - Beatrice Ingram This [...] Follow-Up Appointments Friday 2:00 PM EDT With: Antonio FUENTES MD Where: [facility] [address] [place] [address] [place] [address]- Friday 2:30 PM EDT With: Where: [facility] [address] [place] [address]- 2023 2:00 PM EDT With: Beatrice Ingram Where: [facility] [address], [place] [address]- Medications What How Much When Why Instructions [...] your care. (more content not included)... Normal [facility] 30on 05-29-2024 30 The patient is Moder [...] and maintained or improved Outcome: Progressing Normal [facility] BASIC METABOLIC PANELon 07-2 Anion gap [Moles/Vol] 11 mmol/L Normal 7-20 [facility] Comment on above: Performed By: #### L [id number] ####[facility] ([facility])[address] [address] Calcium [Mass/Vol] 8.7 mg/dL Normal 8.6-10.3 [facility] Comment on above: Performed By: #### L [id number] ####[facility] ([facility])[address] [place] [address] Chloride [Moles/Vol] 106 mmol/L Normal 98-107 [facility] Comment on above: Performed By: #### L [id number] ####[facility] ([facility])[address] [place] [address] CO2 [Moles/Vol] 25 mmol/L Normal 21-31 [facility] Comment on above: Performed By: #### L [id number] ####[facility] ([facility])[address] [address] Creatinine [Mass/Vol] 0.80 mg/dL Normal 0.60-1.20 [facility] Comment on above: Performed By: #### L [id number] ####[facility] ([facility])[address] [place] [address] GLOMERULAR FILTRATION RATE ML/MIN/1.73 SQ M.PREDICTED 79.7 mL/min/1.73m*2 Normal >60.0 [facility] Comment on above: Result Comment: The [facility]???s estimated glomerular filtration rate (eGFR) will [...] of individuals. Performed By: #### L [id number] ####[facility] ([facility])[address] [place] [address] Glucose [Mass/Vol] 126 mg/dL High 70-100 [facility] Comment on above: Performed By: #### L [id number] ####[facility] ([facility])[address] [place] [address] Potassium [Moles/Vol] 4.4 mmol/L Normal 3.5-5.1 [facility] Comment on above: Performed By: #### L [id number] ####[facility] ([facility])[address] [place] [address] Sodium [Moles/Vol] 138 mmol/L Normal 136-145 [facility] Comment on above: Performed By: #### L [id number] ####[facility] ([facility])[address] [place] [address] Urea nitrogen [Mass/Vol] 23 mg/dL Normal 7-25 [facility] Comment on above: Performed By: #### L [id number] ####[facility] ([facility])[address] [place] [address] UREA NITROGEN/CREATININE (MASS RATIO) IN SER/PLAS 28.8 Normal [facility] Comment on above: Performed By: #### L [id number] ####[facility] ([facility])[address] [place] [address] CBC WITH AUTO DIFFERENTIALon 05-29-2024 Basophils (Bld) [#/Vol] 0.03 10*3/uL Normal 0.00-0.20 [facility] Comment on above: Performed By: #### L [id number] ####[facility])[address] [place] [address] Basophils/100 WBC (Bld) 0.2 % Normal 0.0-1.0 [facility] Comment on above: Performed By: #### L [id number] ####[facility])[address] [place] [address] Eosinophils (Bld) [#/Vol] 0.02 10*3/uL Normal 0.00-0.50 [facility] Comment on above: Performed By: #### L [id number] ####[facility])[address] [place] [address] Eosinophils/100 WBC (Bld) 0.1 % Normal 0.0-6.0 [facility] Comment on above: Performed By: #### L [id number] ####[facility])[address] [place] [address] Erythrocyte distribution width (RBC) [Ratio] 13.0 % Normal 11.5-15.0 [facility] Comment on above: Performed By: #### L [id number] ####[facility])[address] [place] [address] ERYTHROCYTE MEAN CORPUSCULAR HEMOGLOBIN CONCENTRATION (G/DL) BY AUTOMATED 32.2 g/dL Normal 32.0-35.0 [facility] Comment on above: Performed By: #### L [id number] ####[facility])[address] [place] [address] Hematocrit (Bld) [Volume fraction] 42.6 % Normal 36.0-48.0 [facility] Comment on above: Performed By: #### L [id number] ####[facility])[address] [place] [address] Hemoglobin (Bld) [Mass/Vol] 13.7 g/dL Normal 12.0-15.0 [facility] Comment on above: Performed By: #### L [id number] ####[facility] ([facility])[address] [place] [address] Immature granulocytes (Bld) [#/Vol] 0.09 10*3/uL Normal 0.00-0.20 [facility] Comment on above: Performed By: #### L [id number] ####[facility])[address] [place] [address] Immature granulocytes/100 WBC (Bld) 0.6 % Normal 0.0-1.0 [facility] Comment on above: Performed By: #### L [id number] ####[facility])[address] [place] [address] Lymphocytes (Bld) [#/Vol] 1.22 10*3/uL Normal 1.20-4.00 [facility] Comment on above: Performed By: #### L [id number] ####[facility])[address] [place] [address] Lymphocytes/100 WBC (Bld) 8.6 % Low 20.0-45.0 [facility] Comment on above: Performed By: #### L [id number] ####[facility] ([facility])[address] [place] [address] MCH (RBC) [Entitic mass] 31.4 pg Normal 27.0-33.0 [facility] Comment on above: Performed By: #### L [id number] ####[facility] ([facility])[address] [place] [address] MCV (RBC) [Entitic vol] 97.5 fL Normal 82.0-98.0 [facility] Comment on above: Performed By: #### L [id number] ####[facility] ([facility])[address] [place] [address] Monocytes (Bld) [#/Vol] 0.93 10*3/uL Normal 0.10-1.00 [facility] Comment on above: Performed By: #### L [id number] ####[facility])[address] [place] [address] Monocytes/100 WBC (Bld) 6.6 % Normal 5.0-12.0 [facility] Comment on above: Performed By: #### L [id number] ####[facility])[address] [place] [address] Neutrophils (Bld) [#/Vol] 11.82 10*3/uL High 1.60-7.60 [facility] Comment on above: Performed By: #### L [id number] ####[facility])[address] [place] [address] Neutrophils/100 WBC (Bld) 83.9 % High 40.0-72.0 [facility] Comment on above: Performed By: #### L [id number] ####[facility])[address] [place] [address] NRBC (PER 100 WBCS) BY AUTOMATED COUNT 0.0 % Normal 0 [facility] Comment on above: Performed By: #### L [id number] ####[facility] [place] [address] PLATELETS (10*3/UL) IN BLOOD AUTOMATED COUNT 262 10*3/uL Normal 150-400 [facility] Comment on above: Performed By: #### L [id number] ####[facility])[address] [place] [address] RBC (Bld) [#/Vol] 4.37 10*6/uL Normal 3.80-5.00 [facility] Comment on above: Performed By: #### L [id number] ####[facility])[address] [place] [address] WBC (Bld) [#/Vol] 14.11 10*3/uL High 4.00-10.60 [facility] Comment on above: Performed By: #### L [id number] ####[facility])[address] [place] [address] DSon 07-27-2024 DS Admit Date 05/27/2024 Discharge Date 05/29/2024 Discharge Diagnosis Intermittent complete heart block, fluctuates between 1st degree, Mobitz 1 and complete heart block on 30 d event monitor, symptomatic s/p pacemaker with biotronik 05/28 Essential hypertension Gallstones s/p cholecystectomy 05/26/2024 Current smoker Obese class 2/severe obesity - BMI 37 Discharge Disposition Home or Self Care (01) Discharge Medications Your medication list CONTINUE taking these medications Instructions Last Dose Given Next Dose Due albuterol 90 mcg/actuation inhaler cholecalciferol 1,250 mcg (50,000 unit) capsule Commonly known as: Vitamin D-[address] capsule Commonly known as: Cymbalta HYDROcodone-acetaminophen 5-325 mg tablet Commonly known as: [place] lisinopriL-hydrochlorothi azide 20-25 mg tablet nicotine 21 [...] an 69 y.o. female who came from [facility] with concerns for complete heart block. Patient reports this all started when she had broken her wrist, she had EKG done at that time which showed an abnormality leading her to have an echocardiogram done With our cardiology team in [place]. During her appointment to go over her echo results which were normal, her EKG showed that she was in a heart block, so she was prescribed a Holter monitor. Yesterday she presented to [facility] for a planned cholecystectomy 2/2 gallstones. During the procedure it was reported that they had to give her atropine due to low heart rates. Her physician there then received a call with results of her Holter monitor saying that there were signs of complete heart block and requested transfer to [facility] for evaluation by our electrophysiology service. [...] (*) Lymphocytes (more content not included)... Normal [facility] MAGNESIUMon 05-29-2024 Magnesium [Mass/Vol] 2.0 mg/dL Normal 1.9-2.7 [facility] Comment on above: Performed By: #### L [id number] #### [facility]) [address] [address] PHOSPHORUSon 05-29-2024 Magnesium [Mass/Vol] 3.1 mg/dL Normal 2.5-5.0 [facility] Comment on above: Performed By: #### L [id number] #### [facility] ([facility]) [address] [place] [address] 30on 05-28-2024 30 The patient is Moder [...] and behaviors that affect risk of falls Snook fall precautions as indicated by assessment Educate [...] and prevent overall improvement and discharge Normal [facility] BASIC METABOLIC PANELon 07-2 Anion gap [Moles/Vol] 11 mmol/L Normal 7-20 [facility] Comment on above: Performed By: #### L [id number] #### [facility] ([facility]) [address] [place] [address] Calcium [Mass/Vol] 8.5 mg/dL Low 8.6-10.3 [facility] Comment on above: Performed By: #### L [id number] #### [facility] ([facility]) [address] [place] [address] Chloride [Moles/Vol] 107 mmol/L Normal 98-107 [facility] Comment on above: Performed By: #### L [id number] #### [facility] ([facility]) [address] [place] [address] CO2 [Moles/Vol] 23 mmol/L Normal 21-31 [facility] Comment on above: Performed By: #### L [id number] #### [facility] ([facility]) [address] [place] [address] Creatinine [Mass/Vol] 0.83 mg/dL Normal 0.60-1.20 [facility] Comment on above: Performed By: #### L [id number] #### [facility] ([facility]) [address] [place] [address] GLOMERULAR FILTRATION RATE ML/MIN/1.73 SQ M.PREDICTED 76.3 mL/min/1.73m*2 Normal >60.0 [facility] Comment on above: Result Comment: The [facility]???s estimated glomerular filtration rate (eGFR) will [...] individuals. Performed By: #### L [id number] #### [facility] ([facility]) [address] [place] [address] Glucose [Mass/Vol] 104 mg/dL High 70-100 [facility] Comment on above: Performed By: #### L [id number] #### [facility] ([facility]) [address] [place] [address] Potassium [Moles/Vol] 3.6 mmol/L Normal 3.5-5.1 [facility] Comment on above: Performed By: #### L [id number] #### [facility] ([facility]) [address] [place] [address] Sodium [Moles/Vol] 137 mmol/L Normal 136-145 [facility] Comment on above: Performed By: #### L [id number] #### [facility] ([facility]) [address] [place] [address] Urea nitrogen [Mass/Vol] 21 mg/dL Normal 7-25 [facility] Comment on above: Performed By: #### L [id number] #### [facility] ([facility]) [address] [place] [address] UREA NITROGEN/CREATININE (MASS RATIO) IN SER/PLAS 25.3 Normal [facility] Comment on above: Performed By: #### L [id number] #### [facility] ([facility]) [address] [place] [address] CBCon 05-28-2024 Erythrocyte distribution width (RBC) [Ratio] 13.2 % Normal 11.5-15.0 [facility] Comment on above: Performed By: #### L [id number] #### [facility] ([facility]) [address] [place] [address] ERYTHROCYTE MEAN CORPUSCULAR HEMOGLOBIN CONCENTRATION (G/DL) BY AUTOMATED 31.7 g/dL Low 32.0-35.0 [facility] Comment on above: Performed By: #### L [id number] #### [facility] [address] [place] [address] Hematocrit (Bld) [Volume fraction] 43.2 % Normal 36.0-48.0 [facility] Comment on above: Performed By: #### L [id number] #### [facility] ([facility]) [address] [place] [address] Hemoglobin (Bld) [Mass/Vol] 13.7 g/dL Normal 12.0-15.0 [facility] Comment on above: Performed By: #### L [id number] #### [facility] ([facility]) [address] [place] [address] MCH (RBC) [Entitic mass] 30.8 pg Normal 27.0-33.0 [facility] Comment on above: Performed By: #### L [id number] #### [facility] ([facility]) [address] [place] [address] MCV (RBC) [Entitic vol] 97.1 fL Normal 82.0-98.0 [facility] Comment on above: Performed By: #### L [id number] #### [facility] ([facility]) [address] [place] [address] PLATELETS (10*3/UL) IN BLOOD AUTOMATED COUNT 231 10*3/uL Normal 150-400 [facility] Comment on above: Performed By: #### L [id number] #### [facility] [address] [place] [address] RBC (Bld) [#/Vol] 4.45 10*6/uL Normal 3.80-5.00 [facility] Comment on above: Performed By: #### L [id number] #### [facility] [address] [place] [address] WBC (Bld) [#/Vol] 9.28 10*3/uL Normal 4.00-10.60 [facility] Comment on above: Performed By: #### L [id number] #### [facility] ([facility]) [address] [place] [address] Surgical Pathology Reporton 05-28-2024 Surgical Pathology Report [facility] [address] [place] [address]- Surgical Pathology Report Collected Date/Time: 05/26/2024 08:23 [...] The mucosal surface is lloyd/pink and velvety. Hr Receptionist sections are submitted in two cassettes: 1 - Cystic duct 2 - Sections of remainder of gallbladder (DC) DC:[facility] Microscopic Description Microscopic examination performed unless gross only specified. Normal [facility] Comment on above: Performed By: #### 4 [id number] #### [facility] [address] [place] [address] CBC WITH AUTO DIFFERENTIALon 05-27-2024 Basophils (Bld) [#/Vol] 0.05 10*3/uL Normal 0.00-0.20 [facility] Comment on above: Performed By: #### L [id number] #### [facility] ([facility]) [address] [place] [address] Basophils/100 WBC (Bld) 0.4 % Normal 0.0-1.0 [facility] Comment on above: Performed By: #### L [id number] #### [facility]) [address] [place] [address] Eosinophils (Bld) [#/Vol] 0.33 10*3/uL Normal 0.00-0.50 [facility] Comment on above: Performed By: #### L [id number] #### [facility] [address] [place] [address] Eosinophils/100 WBC (Bld) 2.8 % Normal 0.0-6.0 [facility] [facility] Comment on above: Performed By: #### L [id number] #### [facility] ([facility] [address] [place] [address] Erythrocyte distribution width (RBC) [Ratio] 13.3 % Normal 11.5-15.0 [facility] Comment on above: Performed By: #### L [id number] #### [facility] (BEAKER) [address] [place] [address] ERYTHROCYTE MEAN CORPUSCULAR HEMOGLOBIN CONCENTRATION (G/DL) BY AUTOMATED 32.7 g/dL Normal 32.0-35.0 [facility] Comment on above: Performed By: #### L [id number] #### [facility] ([facility] [address] [place] [address] Hematocrit (Bld) [Volume fraction] 42.5 % Normal 36.0-48.0 [facility] Comment on above: Performed By: #### L [id number] #### [facility] ([facility]) [address] [place] [address] Hemoglobin (Bld) [Mass/Vol] 13.9 g/dL Normal 12.0-15.0 [facility] Comment on above: Performed By: #### L [id number] #### [facility] ([facility]ER) [address] [place] [address] Immature granulocytes (Bld) [#/Vol] 0.02 10*3/uL Normal 0.00-0.20 [facility] Comment on above: Performed By: #### L [id number] #### [facility] ([facility]) [address] [place] [place] [address] Immature granulocytes/100 WBC (Bld) 0.2 % Normal 0.0-1.0 [facility] Comment on above: Performed By: #### L [id number] #### [facility] ([facility]) [address] [place] [address] Lymphocytes (Bld) [#/Vol] 2.37 10*3/uL Normal 1.20-4.00 [facility] Comment on above: Performed By: #### L [id number] #### [facility] ([facility]) [address] [place] [address] Lymphocytes/100 WBC (Bld) 20.2 % Normal 20.0-45.0 [facility] Comment on above: Performed By: #### L [id number] #### [facility] ([facility]) [address] [place] [address] MCH (RBC) [Entitic mass] 31.0 pg Normal 27.0-33.0 [facility] Comment on above: Performed By: #### L [id number] #### [facility] ([facility]) [address] [place] [address] MCV (RBC) [Entitic vol] 94.7 fL Normal 82.0-98.0 [facility] Comment on above: Performed By: #### L [id number] #### [facility] ([facility]AKER) [address] [place] [address] Monocytes (Bld) [#/Vol] 0.86 10*3/uL Normal 0.10-1.00 [facility] Comment on above: Performed By: #### L [id number] #### [facility] ([facility]) [address] [address] Monocytes/100 WBC (Bld) 7.3 % Normal 5.0-12.0 [facility] Comment on above: Performed By: #### L [id number] #### [facility] ([facility]) [address] [address] Neutrophils (Bld) [#/Vol] 8.08 10*3/uL High 1.60-7.60 [facility] Comment on above: Performed By: #### L [id number] #### [facility] ([facility]) [address] [address] Neutrophils/100 WBC (Bld) 69.1 % Normal 40.0-72.0 [facility] Comment on above: Performed By: #### L [id number] #### [facility] ([facility]) [address] [place] [address] NRBC (PER 100 WBCS) BY AUTOMATED COUNT 0.0 % Normal 0 [facility] Comment on above: Performed By: #### L [id number] #### [facility] ([facility]) [address] [place] [address] PLATELETS (10*3/UL) IN BLOOD AUTOMATED COUNT 246 10*3/uL Normal 150-400 [facility] Comment on above: Performed By: #### L [id number] #### [facility] ([facility]) [address] [place] [address] RBC (Bld) [#/Vol] 4.49 10*6/uL Normal 3.80-5.00 [facility] Comment on above: Performed By: #### L [id number] #### [facility] ([facility]) [address] [address] WBC (Bld) [#/Vol] 11.71 10*3/uL High 4.00-10.60 [facility] Comment on above: Performed By: #### L [id number] #### [facility] (BEAKER) [address] [place] [address] COMPREHENSIVE METABOLIC PANE Joel 05-27-2024 Albumin [Mass/Vol] 3.9 g/dL Normal 3.5-5.7 [facility] Comment on above: Performed By: #### L [id number] #### [facility] ([facility]) [address] [place] [address] ALP [Catalytic activity/Vol] 74 U/L Normal 34-104 [facility] Comment on above: Performed By: #### L [id number] #### [facility] ([facility]) [address] [place] [address] ALT [Catalytic activity/Vol] 22 U/L Normal 7-52 [facility] Comment on above: Performed By: #### L [id number] #### [facility] ([facility]) [address] [place] [address] Anion gap [Moles/Vol] 7 mmol/L Normal 7-20 [facility] Comment on above: Performed By: #### L [id number] #### [facility] ([facility]) [address] [place] [address] AST [Catalytic activity/Vol] 20 U/L Normal 13-39 [facility] Comment on above: Performed By: #### L [id number] #### [facility] ([facility]) [address] [place] [address] Bilirubin [Mass/Vol] 0.6 mg/dL Normal 0.3-1.0 [facility] Comment on above: Performed By: #### L [id number] #### [facility] (BEAKER) [address] [place] [address] Calcium [Mass/Vol] 8.8 mg/dL Normal 8.6-10.3 [facility] Comment on above: Performed By: #### L [id number] #### [facility] ([facility]ER) [address] [place] [address] Chloride [Moles/Vol] 106 mmol/L Normal 98-107 [facility] Comment on above: Performed By: #### L [id number] #### [facility] ([facility]) [address] [place] [address] CO2 [Moles/Vol] 30 mmol/L Normal 21-31 [facility] Comment on above: Performed By: #### L [id number] #### [facility] ([facility]) [address] [place] [address] Creatinine [Mass/Vol] 0.90 mg/dL Normal 0.60-1.20 [facility] Comment on above: Performed By: #### L [id number] #### [facility] ([facility]) [address] [place] [address] GLOMERULAR FILTRATION RATE ML/MIN/1.73 SQ M.PREDICTED 69.2 mL/min/1.73m*2 Normal >60.0 [facility] Comment on above: Result Comment: The [facility]???s estimated glomerular filtration rate (eGFR) will [...] individuals. Performed By: #### L [id number] #### [facility] ([facility]) [address] [place] [address] Glucose [Mass/Vol] 94 mg/dL Normal 70-100 [facility] Comment on above: Performed By: #### L [id number] #### [facility] ([facility]) [address] [place] [address] Potassium [Moles/Vol] 3.7 mmol/L Normal 3.5-5.1 [facility] Comment on above: Performed By: #### L [id number] #### [facility] ([facility]) [address] [place] [address] Protein [Mass/Vol] 6.2 g/dL Normal 6.0-8.3 [facility] Comment on above: Performed By: #### L [id number] #### [facility] ([facility]) [address] [place] [address] Sodium [Moles/Vol] 139 mmol/L Normal 136-145 [facility] Comment on above: Performed By: #### L [id number] #### [facility] ([facility]ER) [address] [place] [address] Urea nitrogen [Mass/Vol] 21 mg/dL Normal 7-25 [facility] Comment on above: Performed By: #### L [id number] #### [facility] ([facility]) [address] [facility] [place] [address] UREA NITROGEN/CREATININE (MASS RATIO) IN SER/PLAS 23.3 Normal [facility] Comment on above: Performed By: #### L [id number] #### [facility] ([facility]AKER) [address] [place] [address] CONSULTon 05-27-2024 CONSULT ----- ----- Attestation signed [...] not have recordings from her monitor in [facility] or during the surgery. Examination is unremarkable. Echo from 05/04/2024 showed moderate left ventricle hypertrophy but normal left ventricle systolic function mildly elevated PAP Plan: Continue to monitor rhythm. I think we should obtain the rhythm strips from [facility] and review to confirm that she had second-degree AV block with significant bradycardia as reported. Apparently Dr. Gaston was called in that regard and we will check with him if he reviewed those strips. Will check thyroid function. Consider sleep study in the future Dianne Benson MD, [facility] ----- Cardiology Consult Note Reason for Consult: complete heart block HPI: Melba Zapata is a 69 y.o. female with Pmh of smoking, depression, HTN, who was transferred from [facility] for cardiology evaluation d/t concern for heart [...] she was called to be admitted to [facility] for PPM placement. She also happened [...] not crush or chew. Past Week HYDROcodone-acetaminophen ([place]) 5 (more content not included)... Normal [facility] ED Clinical Summaryon 2023 ED Clinical Summary ED Clinical Summary [place] [id number] ED Clinical Summary Person Information Name: MELBA ZAPATA [facility]ate/[facility] Age: 69 Years : 1955 Sex: Female Language: Vincentian PCP: Beatrice Ingram Marital Status: MRN: [id number] Visit Id: Visit Reason: Abnormal diagnostic test; [...] 05/27/2024 09:55:08 05/27/2024 09:55:08 05/27/2024 09:55:08 ADDRESS: [address] [place] [phone] [facility] NOTES: MEDICAL INFORMATION: Prescriptions Given: Medications to Continue with No Changes Other Medications acetaminophen-hydrocodone ([place] 325 mg-5 mg oral tablet) 1 Tablets By Mouth every 6 hours as needed as needed for pain. Refills: 0. PATIENT EDUCATION INFORMATION: Instructions: Follow up: DIAGNOSIS: 1:Complete heart block; 2:Dizziness; 3:Lightheaded Normal [facility] ED Patient Education Noteon 05-27-2024 ED Patient Education Note ED Patient Education Note Normal [facility] ED Patient Summaryon 024 ED Patient Summary ED Patient Summary [address] [address] Patient Discharge Instructions Person Information Name: MELBA ZAPATA Age: 69 Years Arrival Date: 05/26/2024 12:32:31 Discharge Diagnosis: 1:Complete heart block; 2:Dizziness; 3:Lightheaded Primary Care Physician: Beatrice Ingram Provider Information Primary Provider: Tony Edmondson DO Advanced Gi Tech:Krystyna BLEDSOE, Malcolm Giron The exam and treatment you received in the Emergency Department were for an urgent problem and are not intended as complete care. It is important that you follow up with a doctor, nurse practitioner, or physician?s optometry assistant for ongoing care. If your symptoms [...] opioids can be used to help relieve gzxjqsdm-qk-qcpkkt pain and are often prescribed following a [...] be struggling with addiction, tell your health pet care attendant and ask for guidance or call [employer]?S National Helpline at 3-581-788-HELP. v Source: [place] Department of Health and Human Services/Center for Disease Control & Prevention [facility] (more content not included)... Normal [facility] Main OR Intraoperative Recor don 05-27-2024 Main OR Intraoperative Record Main OR Intraoperative Record IntraOp Document Type FT Summary Primary Physician: Aakash Levy MD Finalized Date/Time: 05/27/24 09:04:31 Pt. Name: BENNYMELBA/Sex: 1955 Female Med Rec #: [id number] Physician: Aakash Levy MD Financial #: [id number] Pt. Type: A Room/Bed: [place] [address] Admit/Disch: 05/26/24 05:56:56 - 05/26/24 11:10:00 Institution: [...] AT 0828. SURGEON AT [facility] FROM [phone].ALHAJI MAGANA. 05/27/24 Chart opened to review and send charges [facility]FA Case Attendance FT Entry 1 Entry 2 Entry 3 Case Attendee [facility], Akaash Levy MD, Scout Rodriguez CST Role Performed Anesthesiologist Surgeon - Primary RING SPINNER/SA Welder/Installer Time In 05/26/24 07:37:00 05/26/24 07:37:00 05/26/24 07:37:00 Time Out 05/26/24 08:51:00 05/26/24 08:51:00 05/26/24 08:51:00 Procedure CHOLECYSTECOMY ROBOT CHOLECYSTECOMY ROBOT CHOLECYSTECOMY ROBOT ASSISTED(.) ASSISTED(.) ASSISTED(.) Comments IS SUPERVISING Last Modified By: Arelis Vila Kelsie E Burgderfer, Kelsie E 05/26/24 08:55:59 05/26/24 08:55:59 05/26/24 08:55:59 Entry 4 Entry 5 Case Attendee Arelis Vila LPN, Jessica D Role Performed Legal Administrative Assistant - Primary Scrub - Primary Time In [...] Yes Time Out Aakash John, Given Participants Mildred CONSTANTINO, Bobbi Nguyen CST, James W, Arelis Vila Kipp LPN, Jessica D Time Out Complete 05/26/24 07:57:00 Outcomes Met? [...] and tissue Entry 1 Skin Integrity Intact, [place], Warm, & Skin Abnormality No Dry Outcomes Met? Yes Last Modified By: Arelis Vila 05/26/24 07:16:00 Post-Care Text: The patient is free from signs and symptoms of injury caused by extraneous objects Patient Positioning FT Pre-Care Text: Identifies physical alterations that (more content not included)... Normal [facility] TROPONIN Ion 05-27-2024 Troponin I.cardiac [Mass/Vol] 0.00 ng/mL Normal 0.00-0.04 [facility] Comment on above: Performed By: #### L [id number] ####[facility] ([facility]ER)[address] [place] [address] TSH3 REFLEX TO FT4on 024 THYROTROPIN (MIU/L) IN SER/PLAS BY DETECTION LIMIT <= 0.05 MIU/L 0.43 mIU/L Normal 0.34-5.60 [facility] Comment on above: Performed By: #### L [id number] #### [facility] ([facility]ER) [address] [place] [address] CHEMISTRYOrdered By: SYSTEM SYSTEM on 05-26-2024 Troponin [...] High Sensitivity Troponin I Instructions For Use, Jambo, June 2018) Anion gap [Moles/Vol] 11 mmol/L [...] High Sensitivity Troponin I Instructions For Use, Jambo, June 2018) Urea nitrogen [Mass/Vol] 17 mg/dL Normal 5 - 21 mg/dL Remisol Chem Urea nitrogen/Creatinine [Mass ratio] 16 mg/mg Normal 10 - 20 Remisol Chem COAGULATIONOrdered By: Agatha Araiza on 05-26-2024 aPTT Coag (PPP) [Time] 33.5 s Normal 25.1 - 36.5 second(s) [facility] Comment on above: Interpretive Data: Sg pedro 15 days - 4 weeks 1 - 5 months 6 - 11 months 1 - 5 years 6 - 10 years 11 - 17 years PTT Mean: 35.4 (27.6-45.6) Mean: 33.5 (24.8-40.7) Mean: 32.4 (25.1-40.7) Mean: 31.6 (24.0-39.2) Mean: 31.6 (26.9-38.7) Mean: 31.0 (24.6-38.4) Pediatric Reference ranges were obtained from a study by samara Rosas prepared from 1437 samples obtained at 7 different centers using the same coagulation reagent and instrumentation as [facility]. Currently there are no coagulation studies available worldwide for children to 14 days, and no normal ranges. Heparin therapeutic range (represented by Anti-Factor Xa activity of 0.2 - 0.4 U/mL) corresponds to PTT of 56.6 - 109.0 sec. INR Coag (PPP) [Relative time] 1.14 {INR} Invalid Interpretation Code [facility] Comment on above: Interpretive Data: I NR results are specifically intended to assess patients stabilized on long-term Anticoagulation therapy suggested INR s Less Intensive Anticoagulation 2.0 3.0 Conventional Range 3.0 4.5 PT Coag (PPP) [Time] 12.8 s High 9.4 - 12.5 second(s) [facility] Comment on above: Interpretive Data: 1 5 days - 4 weeks 1 - 5 months 6 -11 months 1-5 years 6-10 years 11 -17 years Mean: 11.2 (9.5-12.6) Mean: 11.0 (9.7-12.8) Mean: 11.0 (9.8-13.0) Mean: 11.3 (9.9-13.4) Mean: 11.7 (10.0-14.6) Mean: 11.8 (10.0 - 14.1) Pediatric Reference ranges were obtained from a study by samara Rosas prepared from 1437 samples obtained at 7 different centers using the same coagulation reagent and instrumentation as [facility]. Currently there are no coagulation studies available [...] Follow-Up Appointments Friday 8:20 AM EDT With: Aakash Levy MD Where: [facility] General [facility] [place] [address], [address] [place] [address]- Friday 2:00 PM EDT With: Antonio FUENTES MD Where: [facility] [address] [place] [address] [place] [address]- Friday 2:30 PM EDT With: Where: [facility] Primary Care [address] [place] [address]- 2023 2:00 PM EDT With: Beatrice Ingram Where: [facility] [address] [place] [address]- New Follow Up Appointments after Discharge Follow Up with Aakash Levy When: Comments: Appointment has already been scheduled Where: [facility]iki [facility], [facility] [address] [address]- [phone] Business (1) Medications What How Much When Why Instructions Next Dose New acetaminophen-hydrocodone ([place] 325 mg-5 mg oral tablet) 1 Tablets By Mouth Every 6 hours as needed for as needed for pain Gall stones Pickup at [facility] Unchanged albuterol (Albuterol (Eqv-ProAir HFA) 90 [...] needed for Nausea/Vomiting Worsening headaches Pharmacy Information [facility]: [address] [place], [place] [phone] Allergies Contrast Dye (Swelling, Hives) adhesives (redness) [...] these instructions at home: Medicines ? Take emiv-gcb-jnntxeq and prescription medicines only as told by [...] keep your urine pale yellow. ? Take lxaf-jkc-kpnppkl or prescription medicines. ? Eat foods that [...] and water (more content not included)... Normal [facility] Comment on above: Result Comment: Elec tronically Signed By: Everett MANE, Kateryna Meredith\.br\Date and Time Signed: 05/26/24 09:43 EDT Documentationon 05-26-2024 Documentation [id number] Diana Zapata 1955 F Date Provider Department Center 05/26/2024 DEBBIE LOTT [facility]. Family History Problem Relation Age of Onset Atrial fibrillation Mother Diabetes Mother Other Mother Transient ischemic attack Father Stroke Maternal Grandmother Family Status - Relation Status Age at Mother Father Maternal Grandmother Normal [facility] ED Note-Physicianon 05-26-20 ED Note-Physician ED Note-Physician Basic Information Time Seen: Malcolm Greenwood PA-C 05/26/2024 13:02 Chief Complaint Pt has been wearing heart monitor the past month. Gallbladder surgery this morning with Dr. Levine. [place] called her wiht results of heart monitor [...] Levy. Right afterwards she was called by [facility] with the results of her heart [...] and discussed the patient's case with her marine transport professionals YOVANY Liliana Mejia who was able to fax over the Holter results that demonstrated complete heart block. Ms. Mejia also stated that Dr. Mckay the head marine transport professionals wants the patient transferred for pacemaker placement at [facility]. We initiated transfer to [facility] and I spoke with Dr. Queen [...] in multi (more content not included)... Normal [facility] Comment on above: [...] 05-26-2024 Inpatient Patient Summary Inpatient Patient Summary [address] [address] [facility] Clinical Discharge Instructions PERSON INFORMATION Name: MELBA ZAPATA PHYSICIANS Admitting Physician: Aakash Levy MD Attending Physician: Aakash Levy MD PCP: Beatrice Ingram Discharge Diagnosis: Comment: PATIENT EDUCATION INFORMATION Instructions: Minimally Invasive Cholecystectomy, Care After Medication Leaflets: Follow up: With: Address: When: Aakash Levy [address] [place] [id number] [phone] Business (1) Comments: Appointment has already been scheduled Type Location Start Finish State GS Post Op [facility] 06/04/2024 8:20 AM 06/04/2024 8:40 AM Confirmed URO New Patient [facility] [place] 07/12/2024 2:00 PM 07/12/2024 2:15 PM Confirmed FM Medicare Wellness Subsequent [facility] 07/13/2024 2:30 PM 07/13/2024 3:30 PM Confirmed FM Open [facility] 07/15/2024 2:00 PM 07/15/2024 2:20 PM Confirmed MEDICATION LIST New Medications [facility], [address] [place] [phone], [phone] acetaminophen-hydrocodone ([place] 325 mg-5 mg oral tablet) 1 Tablets [...] as needed Nausea/Vomiting. Refills: 0. Comment: Di [facility] Main OR PACU I Recordon 05-04 Main OR PACU I Record Main OR PACU I Record PACU Phase I Document Type FT Summary Primary Physician: Aakash Levy MD Finalized Date/Time: 05/26/24 10:11:37 Pt. Name: MELBA ZAPATA/Sex: 1955 Female Med Rec #: [id number] Physician: Aakash Levy MD Financial #: [id number] Pt. Type: A Room/Bed: [place] [address] Admit/Disch: 05/26/24 05:56:56 - Institution: Case Times [...] Signed By: Suzy Solis RN 05/26/24 10:11 Normal [facility] Main OR PACU II Recordon Main OR PACU II Record Main OR PACU II Record PACU Phase II Document Type FT Summary Primary Physician: Aakash Levy MD Finalized Date/Time: 05/26/24 11:28:51 Pt. Name: MELBA ZAPATA/Sex: 1955 Female Med Rec #: [id number] Physician: Aakash Levy MD Financial #: [id number] Pt. Type: A Room/Bed: [place] [address] Admit/Disch: 05/26/24 05:56:56 - Institution: Case Times [...] Floyd RN Document Signatures Signed By: Kateryna Flody RN 05/26/24 11:28 [facility] Operative Reporton 4 Operative Report Operative Report Indication for Surgery 69 y/o female with symptomatic cholelithiasis here for robotic cholecystectomy Preoperative Diagnosis GALLSTONES Postoperative Diagnosis GALLSTONES Operation CHOLECYSTECOMY ROBOT ASSISTED, ROBOT ASSISTED LAPAROSCOPIC CHOLECYSTECTOMY, . Surgeon(s) Mildred CONSTANTINO, Aakash Briones (Surgeon - Primary) Welder/Installer [facility] Anesthesia [facility] Scout Eddy DO (Railroad Track Inspector) Leopoldo Carias (Anesthesiologist Welder/Installer) Aakash John (Anesthesiologist Welder/Installer) Estimated Blood Loss 5.0 mL Urine Output [...] x2 Patient tolerated the procedure: yes Normal [facility] Comment on above: Result Comment: Elec tronically Signed By: Aakash Levy MD\.br\Date and Time Signed: 05/26/24 09:09 EDT Outpatient Surgery Discharge Instructionon 05-26-2024 Outpatient Surgery Discharge Instruction Outpatient Surgery Discharge Instruction [address] [address] Patient Discharge Instructions PERSON INFORMATION Name: MELBA [...] Follow up: With: Address: When: Aakash Levy [address] [place] [address], [place] [address], [address] [address] [phone] Business (1) Comments: Appointment has already been scheduled Type Location Start Finish State GS Post Op [facility] 06/04/2024 8:20 AM 06/04/2024 8:40 AM Confirmed URO New Patient [facility] [place] 07/12/2024 2:00 PM 07/12/2024 2:15 PM Confirmed FM Medicare Wellness Subsequent [facility] 07/13/2024 2:30 PM 07/13/2024 3:30 PM Confirmed FM Open [facility] 07/15/2024 2:00 PM 07/15/2024 2:20 PM [...] to serve you. Thank you [facility] choosing [facility] [facility] HERE ARE THE MEDICATION CHANGES THAT OCCURRED DURING YOUR HOSPITAL STAY New Medications [employer] [address] [place], [place] [id number], [phone] acetaminophen-hydrocodone ([place] 325 mg-5 mg oral tablet) 1 Tablets [...] these instructions at home: Medicines ? Take bktr-sjn-nqyocnt and prescription medicines only as told by [...] pale ye (more content not included)... Normal [facility] Troponin 1 Hr.on 05-26-2024 Troponin HS 3.60 pg/mL Low 10.10-27.10 [facility] Comment on above: Result Comment: The 95% CI (Confidence Interval) PPV (Positive Predictive Value) for myocardial infarction in females is 38 pg/mL, in males 51 pg/mL. The results should be used in conjunction with clinical conditions of myocardial infarction. (Access High Sensitivity Troponin I Instructions For Use, Saul [place], June 2018) Performed By: #### 1 [id number] #### [facility] [address] [place] [address] 36on 05-25-2024 36 Regarding critical reports on event monitor from 05/22/2024: NETO Li MA Nicole please call her and see how she is feeling, I don't think its really 3rd degree block- But would like to know what Dhaval thinks- Dr. Puentes, can you please take a look at these reports that are scanned into her sports media? Normal [facility] Office Visiton 05-14-2024 Follow-up visit [id number] Diana Zapata 1955 F Date Provider Department Center 05/14/2024 DEBBIE LOTT CARD [facility] Family History Problem Relation Age of Onset Atrial fibrillation Mother Diabetes Mother Other Mother Transient ischemic attack Father Stroke Maternal Grandmother Family Status - Relation Status Age at Mother Father Maternal Grandmother Level of Service:53995 MT OFFICE/OUTPATIENT ESTABLISHED MOD MDM 30 MIN Normal [facility] Pulmonary Function Studieson 05-01-2024 Pulmonary Function [...] BY: Kalani Caballero M.D. ca Dictated: 04/25/2024 [id number] Transcribed: 04/27/2024 cc:[email or web address] Manjarrez [facility] Comment on above: Result Comment: Elec tronically Signed By: Federico CONSTANTINO, Kalani Schafer\.br\Date and Time Signed: 05/01/24 14:53 EDT Coding Summary.on 04-28-2024 Coding Summary. KLXKIwxo90QEw8fSm+PG hlYWQ +WK1SWSAqA12ymFCaiB9fH6BB TElOSywgQVBQTElOSyIgbmFtZ A9jiIQxFWPl IC8+MY9cKSQpIqhhbSSgh4J8w RV3Y76bsg2dMEerqPA2LVQfNh Runaffe6htqNk9YArzJhwgJmZ t PODtzW94TEA8dI00Hd32jMKau QBsf1cxfLr6AwXyGMSmPBM0dW wpKPczi5GaDMZxJ78ygAPrt6R 6 HEIbdSdcyWYmOoEafUV2gF0uS Xbhitqnf9rczzfvQih3mh95jU Uoj5E9tOO4Z8UshxO5DWHlzXJ g CujoxLXAwX9hikgat2zszetbB fOqMZVlDMg8IEr2DRBbsGlyIn FwWV28WBK5ZVXxmgWyR0LlPPS s pBrbFlP5k2W3Ku7LN3RJJovpT 1VNTUFSWTwvdGQ+XT97md84Y9 DgPctaSii7QKYtJZC4qJP0qD8 n NEJoJEncs0T0kSU4O9OyynOka u3kn8fjBQMyZZzgA59twNLco2 M0VFIefQR5QYHtvJokEoAtyD6 3 Oyc+XBJaiXbtk3XiRiymj6kdr 5ejgMq6AjucRUIpopZkmQwdPM V0h5FeJb3nJUCjaGY7wTG3mD0 i RzGhYgQ0JCyyK227KuVovRYwO ssiU81sF2RyuFO+BUSmNua8NQ CihZvlDQ3rO4GbRVTwtjwreUD m vMteJS0lNCNhhkxcASMvjZ1tZ LEjK7x6QwReCvT3DTakM6TkTB DzprsdHo79lJ6aWcBsTxK7KBj u I8AhbgM5SKAfsXEsGTdeUOA5N 65ps0A6DOKqYOMcMOA7xQV6iZ 1hbGlnbjogbGVmdDsgdmVydGl j DVofILnrY068XAHdgDzyFwYxJ GluZyBEYXRlOiAgMDYvMjYvMj AyNDwvdGQ+UPHqHVM6hAffFCU n hXCdIDhgZs0pvQguzOztUP7yC XXiupbxUXQxaI8yACZrqZPslK lfNM2cSEJirxsns004IjQsQXO 0 BEXjzUEfP7XocY4vLxNhLBDeP ZQrZ6PgdQWaLPljC903CJgnBy R8FYIlquQiC8MjIFQxoPvkFvJ 0 e0B9Qg1Dv1FqysyyW6EysPLkS lHsZrpzJQm2C0QrGvhgtXV+PC 82XXZsKF45FIo2ARH9sDfeBZk i RIIfQ1YyaQ7mLnMpCFNxEOPsB yc+PHRhYmxlIHdpZHRoPScxMD IcWvZzkEbaTZ7jUb6mOVNqXUR v mEypnXAvQlQoj6uaEGStMJftD Y1ytLjuC2KfpBH2HIXbq5y6Tz 59P95cG0MxsQN+YDDpoIC0dZU 0 bP9eSmEqOvF6QAqpW903XfTod TQuAfupy8pkt4buiZi2IvZ8ZH DihqUlgZghMKD4l7VwOi47O47 s IHdpZHRoPSIxNSUiIHZhbGlnb e9njI2jBq4+XLClnKO7uZA0jI 9uCiSqDeK9NAgvS437PxBbsBW v Oqacj9zca0nblSp8CbIaUMOfs nRpfEqnLHH2u9JaRg80R6QfnY cvm5PsOzj2pm58wNQnc0O9vWL 9 J1UfOWIuiybmrHNxwAliOA5lT HEvfncnVIPveM0hIURyR0l7Od CeNsY3MJhlE5OboqS8ZSTlmZZ g HTBvwRNEtB8vrjdyx7lqlronW bGbDYVzHYq1QOf4OYJhuLbhBl EzFJD5WiX3SKF9cRQgqJ9llPn n sbjckW0zNgc+ZMO9tQMonUKCM H4qGmuusHQ+EJPfMCG3nXylEB rhETIcuL0jMOLrA3q1JmWrTyW 1 OJzsD8MdmvL6MYFykRMeGPCdh SVCwM3dnsvhj1kpbaxqQqSuDA JhYCe4RWl0KUAeoFcjTqHgFXQ 0 WtB6UHT2xVAkvL6wdOwuarozq G9wOyc+VkbtfEdaGHK8GXd4B5 UtZlk8GLXipZadZI4obFAxRAp u Wo1mjVntcEydFM6aZDYgpvmws 031RsUwk5uuEPXkjLBkXNtyTX Y5H81bq5D5LECcJIXoWWI4pJW 4 qF5gtJsqgcmptVBypFoxaxUdi TerCAecYKbjV208XFKjvQytSk DqKJh2H1ZnDdc2DBRqcFvfLT5 n rGPyZXjkYd7ryBbomDclXP9cN EQuugobk585WeBbt1xsINCylN AfGKjcEBB7R72pn8I2SMEpNYD w HEQ1lQU0hH0apDschybgaMUbl GajjgByhQjnHGlzTGjgD611RP JasKsaJhAksEs5N2WfBqb3QIS z kItlNO5tgLDyWXgmKk3lmWoeh TukDM4nHZFqdwrla123ZoDmf2 jcAMSvcHEaDXstBWK1O14cz5E 6 ZLSwGKAuVVV9tSI0dZ4oiKnhv jogbGVmdDsgdmVydGljYWwtYW ykV709RNZjcHojTkXqvRdqdrT g BNzpFBq4P4GnOqhonER+PC90Y TVyAX61pTEwvOSyl7ytiDr8Sa FnIUYxZUF7bPwtGLfoq9ReYPP t D24gdURgk6D7XXVxdNilrGWjZ uEmmGE6vX4oQZsuoidsb7adgv meAvdvm7lhyh33dF90G47sFRe p OUWoLNHbQEBjDCZyfMcksg0tx G9wIi8+LBRjuJY7cAN8pK7iXR TuLsT9BCdfE155ZiTecXYvEug j z2qrx3rtcEk9XaF4PXEyaoNvz XmsFMX9b3ThCi01B86lXDlfRB FfSBLdQPBkVDVloCkwvz3vzC1 w Ii8+LVKmhPR3kEK8fA8fOvWmT sL8CQvhW455FgMauHYkBhlrY4 6lT4SbyKZ+WUDxIep9KWQviGw s JG1ziMHjJImbXo5tEPL5FmLnK uPaLHwjY8KzFPCgodfxjkhfuF W3YNKoGEVthD18Vy8uzSptUUH w bIXCuB3zwexun1lkarvdRyDsC MBzNIj4NHl8ZHCweEnhOkDlCR U0ThI4EKT9gHFuoY8uoOlpckh g nA2yH9DaEBLnvlroYa64xL7nC zDvShN1QPhpNzq+B6yCEIhcKG ZBTEVSSUUgQTwvdGQ+PHRkIHN 0 zQfdBPobBBKrxE7zABRhU4y7J sIoWcL1EXqsL4WqEUKvbaigMi 58fT7iFlOtOuF3OEktY9VsyrS 6 PWVmqQYiHKqiIHB1R28rt4X9G LMcVDHhCML5eDX7nC6bcHxniq ogbGVmdDsgdmVydGljYWwtYWx p P595UZZapGrsLgY7AcJnUzY2U DP4D9UrYlc6PWIxaRugOZ9psC ZhRZktSq6ltPifsPllOJ9gNGE p itvmMECduG3yZEEglRYkyWadB K0bIYDdkwhpp149ZgMqNVC0KU FeyTXpH7CnfV5sRrXsVTGqDYJ w F2BtwTTfRGaiS081WNrdKsZ9S UCrjzIeY4DnWNLgiMkbJuM4u7 K5Wu41MIGFMHVqprcjuOQ+PHR k BEG4uEhbHSfhGXFvoY4bZHWtX 3k1GkInOjN1WDsbN7PvDLSriz svWc25vG4oWoCnPoF6UKslQ2K v xqM3IXHjwQNxWEtkKTH6J63je 6R4PMLtKKPaNIM2hIJ4yV6ooP lnbjogbGVmdDsgdmVydGljYWw t DCpaH997GVNouYfdDgImqKWkE TwvdGQ+KCVwYCR1uQieFDfeVA CtdG8yHGKjV5z7XlQgSlB5IRm u Y8SvMUNbpqivOi52bZ7tZcNpU zE2WUmjK8RrukQ2EQEbuOScOZ iiIWP7P33oy1O9BHPrXTLuRQE 7 nOJ1hW2lmYnfizxncLWodZebj oZbbKnpZCmsLMsfC002GQAryX gvBf35ySDmmUoekcT6U7LtMyj v dHI+LM94FQVmHM67iNOmvOXxw 7aklVq2QyOlOYQqMWY2vKlsYF zgg7DaIGNoJ48pgTBbr4H8SPM v zIfryJRsNmWxtIB8fY4fMLsca ghkn4kjugpvGjllg7szma67pU 80C74tZRktYGQmTVIuMPUwTLQ h vTnqmk9geX6sBp8+EAFcbXV1j TG8gV5rKzUqFpM8OFrlW551Xz VcgLHdDqzrm6xtl1skmNw9BuW w XGKttkHlwUtvYPV5t4PjBi74K 29sIHdpZHRoPSIyMCUiIHZhbG xhaj4chT6cNd2+BC4sq2oplu9 1 wX89uZC+ETIoKFY9wUdgITqiM DUycX1zIWyzNrD6CDDcDnWtwW 73pTEyZGulFu7reEantMsjGY8 w AOVyvzrmk567UhIqd7syQMDnr TLyMAnoRKR0G27dv0F6NWDvYD MoRQR9kUL6nV1hvHgiuibatNE m tIpkexIcjSkqKGefGJvwF487Y EYpxXpfBsOmkSKtW7akftXSLW 1lOjwvdGQ+SGKqERE5sUrgKZf w MJUvuK4iYBKfY3p2RdIpEdH0N GvxA6TyzxW1BOJwjPQqHCFzdE QUyV1jckczs6eqtvaiXeXpNWZ w OEr7UHs3UGUvxUayIoShKKI3I cU9UDA6gEEjkD2hjCwjjglimU 9wOyc+RklOOjwvdGQ+PHRkIHN 0 cBxpZYalADSuzB1bGAKqU7w2C aNfXiG1HBowP0JnpdY8NBZgfG KwMHOuhVKNwZ1eqbsbj7zielh g QmAyHQUkOHo3VDe5SYXsfPlgY yFiJZD6WsM5JKE9oMXncX8caV pxrlnijW7iAro+TVJOOjwvdGQ + OHNxAPB2bBfdHLblXFOmpI9yL TSbO7r5WnDoTlA8RVyxA7Tztj N7ZGKiiGWsPDBpjGTCuB4fvre j m3hnllckRyXlRKShDMj1ZCl1D YQvlBnrBpWyMBG0ZqF5HAK6uN FwdF8wcQelhnxvfI9jRxu+UGF 5 OWA5MM29IQ17T6AiTsgyzKCjy +PHRhYmxlIHdpZHRoPScxMD NsYuZjgGutSJ0oRk2kBIEdIKD v bGxhcHNlOiBjb (more content not included)... Normal [facility] Consent for Procedure/Surger yon 04-28-2024 Consent for Procedure/Surgery [id number]#1.00TIFF Normal [facility] Ambulatory Visit Summaryon [...] EDT With: Mildred CONSTANTINO, Aakash Briones Where: [facility] General Surgery [place] Invalid Interpretation Code [address] [place] [address] [place] [address]- \.br\ Friday 2:30 PM EDT \.br\ With:\.br\ Where: [facility] Primary Care [facility] General Surgery Office/Clini c Noteon 04-27-2024 General Surgery Office/Clinic Note Chief Complaint HAND CLIPPER Cholelithiasis HPI Staff HAND CLIPPER Melba is a 69 y.o. female here for gall stones Beatrice SUGGS referring US GB done 04/02/2024 Today patient [...] with voice recognition artificial intelligence software, specifically Transparentrees, Stepcase and or better.. Substitutions may have occurred due to the inherent limitations of voice recognition and artificial intelligence software. ATTESTATION: Documentation services were performed after the patient or guardian consented to allow [employer] to record this visit. MICKY market research specialist and provider reviewed before signing. MICKY: [...] reduction of frac (more content not included)... Normal [facility] Comment on above: Result Comment: Elec tronically Signed By: Aakash Levy MD\.br\Date and Time Signed: 04/27/24 16:19 EDT\.br\Electronically Co-Signed By: Lillian Osborne.br\Date and Time Co-Signed: 04/27/24 15:28 EDT Consent for Treatmenton 04-03 Consent for Treatment [id number] Normal [facility] Pulmonary Function Testson 0 04-21-2024 Pulmonary Function Tests [id number]#1.00TIFF Normal [facility] Consent for Immunizationon 0 04-15-2024 Consent for Immunization [id number]#1.00TIFF Normal [facility] Family Medicine Office/Clini [...] EKG when she underwent wrist surgery. 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 (more content not included)... Normal [facility] Comment on above: [...] CONSTANTINO, Antonio Srivastava Where: [facility] Invalid Interpretation Code [address], [place] [address]- \.br\ 2023 2:00 PM EDT \.br\ With: Beatrice Ingram\.br\ Where: [facility] Primary Care [facility] Ambulatory Visit Summary MELBA ZAPATA :1955 Visit [...] - Beatrice Ingram Primary Care Physician - Beatrcie Ingram This Is Your Medications List albuterol [...] CONSTANTINO, Antonio Srivastava Where: [facility] [place] Invalid Interpretation Code [address], [place] [address]- \.br\ 2023 2:00 PM EDT \.br\ With: Beatrice Ingram\.br\ Where: [facility] Primary Care [facility] Patient Educationon 04-14-20 Patient Education Blood Pressure [...] provider. Document Revised: 07/04/2022 Document Reviewed: 07/04/2022 Elsevier Patient Education ? 2022 [employer] Cardiovascular Hypertension, Adult High blood pressure [...] pressure r (more content not included)... Normal [facility] CT Chest, Low Dose Screening on 04-07-2024 [...] Chas Stevens M.D. Transcribed by: PRIMO Technologist: SB Normal [facility] US Abdomen Completeon 2023 US Abdomen Complete [...] DO Transcribed by: PRIMO Technologist: JEAN PAUL Sevilla [facility] C Urineon 04-04-2024 [...] Locations R1: This test was performed at: [facility], [address] [place] [address], [address] , [place], Normal [facility] Comment on above: Performed By: #### 2 [id number] #### [facility] [address] [place] [address] Performed By: #### 2 [id number] ####[facility] [address] [place] [address] CBC w/ Auto Diffon 4 Basophils/100 WBC (Bld) 0.7 % Normal 0.0-2.0 [facility] Comment on above: Performed By: #### 2 [id number] #### [facility] [address] [place] [address] Basophils/Leukocyte s Auto (Bld) [Pure # fraction] 0.1 E9/L Normal 0.0-0.2 [facility] Comment on above: Performed By: #### 2 [id number] #### [facility] [address] [place] [address] Eosinophils (Bld) [#/Vol] 0.4 E9/L Normal 0.0-0.5 [facility] Comment on above: Performed By: #### 2 005203 #### [facility] [address] [place] [address] Eosinophils/100 WBC (Bld) 4.2 % Normal 0.0-8.0 [facility] Comment on above: Performed By: #### 2 [id number] #### [facility] [address] [place] [address] Erythrocyte distribution width (RBC) [Ratio] 13.3 % Normal 10.9-14.2 [facility] Comment on above: Performed By: #### 2 [id number] #### [facility] [address] [place] [address] Hematocrit (Bld) [Volume fraction] 46.7 % High 34.0-46.0 [facility] Comment on above: Performed By: #### 2 [id number] #### [facility] [address] [place] [address] Hemoglobin (Bld) [Mass/Vol] 15.9 g/dL Normal 12.0-16.0 [facility] Comment on above: Performed By: #### 2 [id number] #### [facility] [address] [place] [address] Lymphocytes (Bld) [#/Vol] 2.1 E9/L Normal 1.0-4.0 [facility] Comment on above: Performed By: #### 2 345690 #### [facility] [address] [place] [address] Lymphocytes/100 WBC (Bld) 21.8 % Normal 14.0-50.0 [facility] Comment on above: Performed By: #### 2 [id number] #### [facility] [address] [place] [address] MCH (RBC) [Entitic mass] 31.6 pg Normal 27.0-34.0 [facility] Comment on above: Performed By: #### 2 [id number] #### [facility] [address] [place] [address] MCHC (RBC) [Mass/Vol] 34.1 g/dL Normal 31.4-36.0 [facility] Comment on above: Performed By: #### 2 [id number] #### [facility] [address] [place] [address] MCV (RBC) [Entitic vol] 92.5 fL Normal 80.0-100.0 [facility] Comment on above: Performed By: #### 2 707014 #### [facility] [address] [place] [address] Monocytes (Bld) [#/Vol] 0.7 E9/L Normal 0.2-1.0 [facility] Comment on above: Performed By: #### 2 [id number] #### [facility] [address] [place] [address] Neutrophils (Bld) [#/Vol] 6.5 E9/L Normal 2.0-7.5 [facility] Comment on above: Performed By: #### 2 905207 #### [facility] [address] [place] [address] Neutrophils/100 WBC (Bld) 66.0 % Normal 36.0-75.0 [facility] Comment on above: Performed By: #### 2 616543 #### [facility] [address] [place] [address] Platelet mean volume (Bld) [Entitic vol] 7.9 fL Normal 6.4-10.8 [facility] Comment on above: Performed By: #### 2 511472 #### [facility] [address] [place] [address] Platelets (Bld) [#/Vol] 284.0 E9/L Normal 150.0-500.0 [facility] Comment on above: Performed By: #### 2 [id number] #### [facility] [address] [place] [address] RBC (Bld) [#/Vol] 5.1 E12/L Normal 4.3-5.9 [facility] Comment on above: Performed By: #### 2 717612 #### [facility] [address] [place] [address] WBC corrected for nucl RBC Auto (Bld) [#/Vol] 9.9 E9/L Normal 4.0-11.0 [facility] Comment on above: Performed By: #### 2 [id number] #### [facility] [address] [place] [address] CHEMISTRYOrdered By: [employer] SYSTEM on 04-02-2024 25-hydroxyvitamin D3 [Mass/Vol] 22.9 [...] (Bld) [Mass fraction] 5.6 % Normal <=5.9% [facility] ChemAuto[employer] CMPon 04-02-2024 Albumin [Mass/Vol] 4.3 g/dL Normal 3.3-5.0 [facility] Comment on above: Performed By: #### 2 [id number] #### [facility] [address] [place] [address] Albumin/Globulin (S) [Mass conc ratio] 1.5 Normal 1.1-2.2 [facility] Comment on above: Performed By: #### 2 593064 #### [facility] [address] [place] [address] ALP [Catalytic activity/Vol] 88 Int._Unit/L Normal 21-98 [facility] Comment on above: Performed By: #### 2 [id number] #### [facility] [address] [place] [address] ALT No additional P-5'-P [Catalytic activity/Vol] 15 Int._Unit/L Normal 6-46 [facility] Comment on above: Performed By: #### 2 [id number] #### [facility] [address] [place] [address] AST [Catalytic activity/Vol] 17 Int._Unit/L Normal 5-43 [facility] Comment on above: Performed By: #### 2 152206 #### [facility] [address] [place] [address] Bilirubin [Mass/Vol] 0.6 mg/dL Normal 0.0-1.1 [facility] Comment on above: Performed By: #### 2 351990 #### [facility] [address] [place] [address] Calcium [Mass/Vol] 9.1 mg/dL Normal 8.9-11.1 [facility] Comment on above: Performed By: #### 2 141528 #### [facility] [address] [place] [address] Chloride [Moles/Vol] 107 mmol/L Normal 101-111 [facility] Comment on above: Performed By: #### 2 572235 #### [facility] [address] [place] [address] Creatinine [Mass/Vol] 1.0 mg/dL Normal 0.5-1.3 [facility] Comment on above: Performed By: #### 2 877409 #### [facility] [address] [place] [address] Globulin (S) [Mass/Vol] 2.8 g/dL Normal 1.4-4.0 [facility] Comment on above: Performed By: #### 2 766333 #### [facility] [address] [place] [address] Glucose [Mass/Vol] 95 mg/dL Normal 55-199 [facility] Comment on above: Performed By: #### 2 251671 #### [facility] [address] [place] [address] Potassium [Moles/Vol] 4.0 mmol/L Normal 3.5-5.3 [facility] Comment on above: Performed By: #### 2 370538 #### [facility] [address] [place] [address] Protein [Mass/Vol] 7.1 g/dL Normal 6.0-7.8 [facility] Comment on above: Performed By: #### 2 978902 #### [facility] [address] [place] [address] Sodium [Moles/Vol] 140 mmol/L Normal 135-145 [facility] Comment on above: Performed By: #### 2 252700 #### [facility] [address] [place] [address] Urea nitrogen [Mass/Vol] 21 mg/dL Normal 5-21 [facility] Comment on above: Performed By: #### 2 005958 #### [facility] [address] [place] [address] Urea nitrogen/Creatinine [Mass ratio] 21 No Units High 10-20 [facility] Comment on above: Performed By: #### 2 618031 #### [facility] [address] [place] [address] Anion gap [Moles/Vol] 10 mmol/L Normal 6-16 [facility] Comment on above: Performed By: #### 2 768201 #### [facility] [address] [place] [address] CO2 [Moles/Vol] 27 mmol/L Normal - [facility] Comment on above: Performed By: #### 2 004328 #### [facility] [address] [place] [address] Consent for Treatmenton 03-05 Consent for Treatment [id number] Normal [facility] Free T4on 04-02-2024 Free T4 [Mass/Vol] 0.87 ng/dL Normal 0.58-1.64 [facility] Comment on above: Performed By: #### 2 593782 #### [facility] [address] [place] [address] HEMATOLOGYOrdered By: SYSTEM SYSTEM on 04-02-2024 Basophils/100 [...] 11.0 E9/L Remisol Heme HEMATOLOGYOrdered By: Vale Fowler on 04-02-2024 ESR (Bld) [Velocity] 13 mm/h Normal 0 - 34 mm/hr [facility] HemeAutoSS [id number] 04-02-2024 HbA1c (Bld) [Mass fraction] 5.6 % Normal <=5.9 [facility] Comment on above: Performed By: #### 7 [id number] #### [facility] [address] [place] [address] Lipase Levelon 04-02-2024 Lipase [Catalytic activity/Vol] 18 U/L Normal 13-58 [facility] Comment on above: Performed By: #### 2 606503 #### [facility] [address] [place] [address] Lipid Panelon 04-02-2024 Cholesterol [Mass/Vol] 192 mg/dL Normal 120-200 [facility] Comment on above: Performed By: #### 2 411397 #### [facility] [address] [place] [address] Cholesterol in HDL [Mass/Vol] 46 mg/dL Invalid Interpretation Code [facility] Comment on above: Result Comment: '>= 60 LOW RISK' '<= 40 HIGH RISK' Performed By: #### 2 696439 #### [facility] [address] [place] [address] Cholesterol in LDL [Mass/Vol] 132 mg/dL High <=129 [facility] Comment on above: Performed By: #### 2 713008 #### [facility] [address] [place] [address] Cholesterol in VLDL [Mass/Vol] 22 mg/dL Normal 7-40 [facility] Comment on above: Performed By: #### 2 712691 #### [facility] [address] [place] [address] Triglyceride [Mass/Vol] 110 mg/dL Normal <=149 [facility] Comment on above: Performed By: #### 2 625076 #### [facility] [address] [place] [address] Sed Rate Automatedon 024 ESR (Bld) [Velocity] 13 mm/h Normal 0-34 [facility] Comment on above: Performed By: #### 1 [id number] #### [facility] [address] [place] [address] TSHon 04-02-2024 TSH Qn 2.99 m[IU]/L Normal 0.34-5.60 [facility] Comment on above: Performed By: #### 2 880724 #### [facility] [address] [place] [address] UA With Cult Reflexon 2023 Type of Urine collection method Clean Catch Normal [facility] Comment on above: Performed By: #### 1 [id number] #### [facility] [address] [place] [address] Clarity (U) Clear Normal Clear [facility] Comment on above: Performed By: #### 1 [id number] #### [facility] [address] [place] [address] Color (U) Yellow Normal Yellow [facility] Comment on above: Result Comment: Micr oscopic readings are only performed on those samples that meet specific criteria set forth by [facility]. Performed By: #### 1 [id number] #### [facility] [address] [place] [address] Epithelial cells.squamous Auto (Urine sed) [#/Area] 9-10 Abnormal 0-2 [facility] Comment on above: Performed By: #### 1 [id number] #### [facility] [address] [place] [address] Leukocyte esterase Auto test strip Ql (U) 500 [place]/uL Abnormal Negative [facility] Comment on above: Performed By: #### 1 [id number] #### [facility] [address] [place] [address] Mucus Auto Ql (U) Trace Normal Negative [facility] Comment on above: Performed By: #### 1 [id number] #### [facility] [address] [place] [address] pH (U) 6.5 [pH] Invalid Interpretation Code 5.0-9.0 [facility] Comment on above: Performed By: #### 1 [id number] #### [facility] [address] [place] [address] RBC Ql (U) 4-20 Abnormal 0-3 [facility] Comment on above: Performed By: #### 1 [id number] #### [facility] [address] [place] [id number] Specific gravity (U) [Rel density] 1.020 Invalid Interpretation Code 1.005-1.030 [facility] Comment on above: Performed By: #### 1 [id number] #### [facility] [address] [place] [address] WBC Auto (Urine sed) [#/Area] 16-25 Abnormal 0-5 [facility] Comment on above: Performed By: #### 1 [id number] #### [facility] [address] [place] [address] UA With Cult ReflexOrdered B y: SYSTEM SYSTEM on 04-02-2024 Bilirubin Ql (U) Negative Normal Negative FT [facility]A Auto SS Comment on above: Performed By: #### 1 [id number] #### [facility] [address] [place] [address] Glucose Ql (U) Negative Normal Negative FT [facility]A Auto SS Comment on above: Performed By: #### 1 [id number] #### [facility] [address] [place] [address] Hemoglobin Auto test strip (U) [Mass/Vol] Negative Normal Negative FT [facility]A Auto SS Comment on above: Performed By: #### 1 [id number] #### [facility] [address] [place] [address] [place] [address] Ketones Auto test strip Ql (U) Negative Normal Negative [facility] UA Auto SS Comment on above: Performed By: #### 1 [id number] #### [facility] [address] [place] [address] Nitrite Auto test strip Ql (U) Negative Normal Negative [facility] UA Auto SS Comment on above: Performed By: #### 1 [id number] #### [facility] [address] [place] [address] Protein Ql (U) Negative Normal Negative [facility] UA Auto SS Comment on above: Performed By: #### 1 [id number] #### [facility] [address] [place] [address] Urobilinogen (U) [Mass/Vol] Negative Normal Negative [facility] UA Auto SS Comment on above: Performed By: #### 1 [id number] #### [facility] [address] [place] [address] URINALYSISOrdered By: SYSTEM SYSTEM on 04-02-2024 Clarity (U) Clear (04/02/24 9:00 AM) Normal Clear [facility] UA Auto SS Color (U) Yellow 1 (04/02/24 9:00 AM) Normal Yellow [facility] UA Auto SS Comment on above: Interpretive Data: M icroscopic readings are only performed on those samples that meet specific criteria set forth by [facility]. Epithelial cells.squamous Auto (Urine sed) [#/Area] [...] AM) Invalid Interpretation Code 1.005 - 1.030 [facility] UA Auto SS WBC Auto (Urine sed) [#/Area] 16-25 graded/HPF Invalid Interpretation Code 0-5graded/HPF [facility] UA Auto SS URINALYSISOrdered By: Karo Araiza on 04-02-2024 UA Spec Desc Clean Catch (04/02/24 9:00 AM) Normal [facility] UA Auto SS Vitamin D 25 Hydroxyon 04-02 25-hydroxyvitamin D3 [Mass/Vol] 22.9 ng/mL Low 30.0-100.0 [facility] Comment on above: Performed By: #### 5 [id number] #### [facility] [address] [place] [address] eGFRon 04-02-2024 eGFR 61 mL/min/1.73 m2 Normal >=59 [facility] Comment on above: Order Comment: Order added by Discern Expert. Performed By: #### 1 [id number] #### [facility] [address] [place] [address] Ambulatory Visit Summaryon 0 03-19-2024 Ambulatory Visit Summary CONORLUISMELBA :1955 Visit Date:03/19/2024 Ambulatory Visit Instructions Your [...] Follow-Up Appointments Friday 2:30 PM EDT Where: [facility] Normal Hydronephrosis with renal and ureteral calculous obstruction, pp_set_radiolog y_subspecialty, Not Required, [facility]\.br\ Medications\.br \ What How Much When Why Instructions\.b r\ New hydrochlorothia zide-lisinopril (hydrochlorothi azide-lisinopri l 12.5 mg-10 mg Tab) 1 Tablets By Mouth Every day Benign essential HTN Pickup at [facility]\.br\ New nicotine (nicotine 7 mg/ 24 hr Transderm ER Film) 1 Patches Topical Every day Personal history of tobacco use Refills: 1 Pickup at [facility]\.br\ Unchanged buPROPion (Wellbutrin SR 150 mg Tab-ER) 1 Tablets By Mouth 2 times a day Depression Other obesity Personal history of tobacco use Pickup at [facility]\.br\ Unchanged duloxetine (duloxetine 60 mg oral delayed release capsule) 1 Capsules By Mouth Every day Anxiety Depression Pickup at [facility]\.br\ Unchanged ondansetron (Zofran 4 mg Tab) 1 Tablets By Mouth Every 8 hours as needed for Nausea/Vomiting Worsening headaches Contact prescribing physician if questions or concerns \.br\ Pharmacy Information\.br \ [facility]: [address] [place], [place] [id number] [phone]\.br\ Allergies\.br\ Contrast Dye (Swelling, Hives)\.br\ adhesives (redness)\.br\ [...] for choosing us for your care.\.br\ \.br\ [facility] Medicine Office/Clini c Noteon 03-19-2024 Family Medicine [...] rings. She also consumed a drink called [employer], a deviation from her usual consumption. She [...] Normal? ROM, (more content not included)... Normal [facility] Comment on above: Result Comment: Elec tronically Signed By: Beatrice Ingram\.br\Date and Time Signed: 03/19/24 18:34 EDT\.br\Electronically Co-Signed By: Lyndsay Hutchins\.br\Date and Time Co-Signed: 03/19/24 18:25 EDT Patient Educationon 03-19-20 24 Patient Education Heart Disease Preven tion Heart [...] hard liquor (44 mL). Medicines ? Take bbah-aus-nauhxxb and prescription medicines only as told by [...] find more informatio (more content not included)... [facility] OT - Workers [facility] 01-06-20 24 OT - Workers Comp [id number]#1.00TIFF [facility] OT - Workers [facility] 12-25-19 24 OT - Workers Comp [id number]#1.00TIFF [facility] Physician Referralon 024 Physician Referral [id number]#1.00TIFF [facility] Family Medicine Office/Clini c Noteon 12-14-2023 Family Medicine Office/Clinic Note Chief Complaint Establish Care-Former [facility] Staff Patient here to Establish Care History: Any previous diagnosis: Benign HTN, Depression, Hyperlipidemia History of seeing any specialist(s): yes Ortho for wrist fracture and 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 Maddox, Dr. Coleman Crystalizer Operator: N/A Dentist: N/A Psychology/psychiatry: N/A Cardiology: N/A [...] Dr Coleman, a reconstructive surgeon based in [place], who confirmed the possibility of correction. The patient intended to undergo the corrective procedure in the spring, but due to a fall, she was nearly non-weight bearing for 2 months. Fracture of right wrist with routine healing. The patient reports having undergone laboratory tests at [facility] for pre-admission at the end of 09/2023. [...] healing correctly. She continues her therapy at [facility]. She has an appointment with Dr Griffin [...] patient pres (more content not included)... Normal [facility] Comment on above: [...] Occupational Therapy Friday 2:30 PM EDT Where: [facility] Invalid Interpretation Code Wellness examination, Not Required, Print Label By Order Location\.br\ Comprehensive Metabolic Panel, Blood, Routine collect, 12/10/23, Order for future visit, Lab Collect, Benign essential HTN [facility] Patient Educationon 12-10-19 Patient Education Immunology Fatigue [...] these instructions at home: Medicines ? Take xcao-qug-zpwfcfq and prescription medicines only as told by [...] the National Suicide Prevention Lifeline at or 840. This is open 24 hours a day. ? Text the Crisis Text Line at 697992. Summary ? If you have fatigue, you [...] provider. Document Revised: 08/12/2022 Document Reviewed: 08/12/2022 [employer] Sciences Patient Education ? 2022 [employer]. Mental and Behavioral Health Major Depressive Disorder, [...] ? You (more content not included)... Normal [facility] Pre-Visit Planningon 024 Pre-Visit Planning - From: Yolette Laughlin RN To: Beatrice Barnes; Sent: 12/09/2023 10:39:17 EST Subject: Pre-Visit Planning Due Date/Time: 12/09/2023 10:39:00 EST Caller Name: MELBA ZAPATA; Caller Number: H Miah Barron, *Based on your response below, can you please update the chronic problem list and address during this visit if appropriate?* During a pre-visit planning chart review, I noted the following documentation in the medical record indicates that this patient had a BMI of 38.03 on 10/30/2023. The National Snook of Health defines obesity as morbid if [...] feel free to contact me at extension [phone]. Thank you! SIMONA Pardo, RN, CCM, CCDS, CCDS-O From: Beatrice Ingram To: Yolette Laughlin RN; Sent: 12/09/2023 22:05:42 EST Subject: RE: Pre-Visit Planning Caller Name: MELBA ZAPATA; Caller Number: H - Class 3 severe obesity BMI 38 with serious comorbidity in adult with HTN. ??? (please also include additional diagnosis to reflect current BMI) Normal [address] [facility] Pre-Visit Planning - From: Yolette Laughlin RN To: Cameron SUGGS, Beatrice Valdez; Sent: 12/09/2023 10:36:38 EST Subject: Pre-Visit Planning Due Date/Time: 12/09/2023 10:36:00 EST Caller Name: MELBA ZAPATA; Caller Number: H Miah Barron, During a [...] feel free to contact me at extension [phone]. Thank you! SIMONA Pardo, RN, CCM, CCDS, CCDS-O From: Beatrice Ingram To: Truman MANE, Yolette; Sent: 12/09/2023 22:04:13 EST Subject: RE: Pre-Visit Planning Caller Name: MELBA ZAPATA; Caller Number: Hallie Major depressive disorder, recurrent, mild Normal [address] [facility] OT - Home Exercise Programon 12-04-2023 OT - Home Exercise Program [id number]#1.00TIFF [facility] OT - Assessmentson OT - Assessments [id number]#1.00TIF F [facility] OT - Consentson 11-14-2023 OT - Consents [id number]#1.00TIF F [facility] OT - Home Exercise Programon 11-14-2023 OT - Home Exercise Program [id number]#1.00TIF F [facility] OT - Orderson 11-12-2023 OT - Orders [id number]#1.00TIFF [facility] Consent for Treatmenton Consent for Treatment [id number]#1.00TIFF [facility] OT - Workers Compon 11-10-19 24 OT - Workers Comp [id number]#1.00TIFF [facility] Workers Comp Formson 024 Workers Comp Forms [id number]#1.00TIFF [facility] Consent for Flu Vaccineon Consent for Flu Vaccine [id number]#1.00TIFF Normal [facility] Family Medicine Office/Clini [...] of clutter to prevent tripping and/or falling. [place] Advance Directives reviewed. Packet received in the [...] many disease (more content not included)... Normal [facility] Comment on above: Result Comment: Elec tronically Signed By: SIENNA CONSTANTINO, Aakash Ruggiero\.br\Date and Time Signed: 10/31/23 12:38 EST\.br\Electronically Co-Signed By: Tiffanie Yi LPN\.br\Date and Time Co-Signed: 10/30/23 16:16 EST [place] 10-31-2023 Screens [id number]#1.00TIFF [facility] Ambulatory Visit Summaryon 1 12-31-2022 Ambulatory [...] 4:00 PM EST With: Beatrice Ingram Where: [facility] Normal [address], [place] [address]- \.br\ Medications\.br \ What How [...] a fast heartbeat, dizziness, or weakness), call 07-04- and get the person to the nearest hospital.\.br\ For other signs that concern you, call your health care provider.\.br\ Adverse reactions should be reported to the Vaccine Adverse Event Reporting System (VAERS). Your health care provider will usually file this report, or you can do it yourself. Visit the [employer] website at www.TigerTrade.[facility].g ov or call . SDERS is only for reporting reactions, and [facility] staff do not give medical advice.\.br\ 6. How can I learn more?\.br\ ? \.br\ Ask your health care provider.\.br\ ? \.br\ Call your local or state health department.\.br \ ? \.br\ Contact the Centers for Disease Control and Prevention (CDC):\.br\ ? \.br\ Call (2-968-OKC-INFO ) or\.br\ ? \.br\ Visit CDC's website [...] provider.\.br\ Document Revised: 09/18/2022 Document Reviewed: 07/22/2022 ElsePK Clean Patient Education ? 2022 Sight Sciences Inc.\.br\ Understanding Your Risk for Falls\.br\ Each [...] insomnia, or edema, as well as tyler [facility] Patient Educationon 10-30-20 23 Patient Education Caregiving [...] Community-Based Fall Prevention Programs: www.cdc.gov ? National Snook on Aging: www.erich.nih.gov Contact a health care [...] provider. Document Revised: 05/23/2021 Document Reviewed: 05/23/2021 ElsePK Clean Patient Education ? 2022 S[employer] Inc. Infectious Disease Pneumococcal Polysaccharide Vaccine (PPSV23): What You Need to Know 1. Why get vaccinated? Pneumococcal polysaccharide vaccine (PPSV23) can prevent pneumococcal disease. Pneumococcal disease refers to any illness caused by pneumococcal bacteria. These bacteria can cause many types of illnesses, including pneumonia, which is an infection of the lungs. Pneumococca (more content not included)... Normal [facility] FL LESS THAN 1 HOURon 2022 FL LESS THAN 1 HOUR Radiology exam is complete. No Radiologist dictation. Please follow up with ordering provider. Final result Normal [facility] Office Visiton 10-02-2023 Follow-up visit [id number] Diana Zapata 1955 F Date Provider Department Center 10/02/2023 65404-DYSBHERIYDARIO VANG CARD [facility] Family History Problem Relation Age of Onset Atrial fibrillation Mother Diabetes Mother Other Mother Transient ischemic attack Father Stroke Maternal Grandmother Family Status - Relation Status Age at Mother Father Maternal Grandmother Level of Service:32213 MT OFFICE/OUTPATIENT NEW MODERATE MDM 45-59 MINUTES Normal [facility] CT Head or Brain w/o [...] REPORT Dictated: 09/10/2023 12:58 pm Merrick Torrez MD. Signed (Electronic Signature): 09/10/2023 12:58 pm Signed by: Merrick Torrez MD Transcribed by: PRIMO Technologist: TERRY Sevilla [facility] CT Spine Cervical w/o Contra ston 09-10-2023 [...] Merrick Torrez MD Transcribed by: PRIMO Technologist: [facility] Consent for Treatmenton Consent for Treatment [id number]#1.00TIFF [facility] Discharge Instructionson Discharge Instructions [id number]#1.00TIFF [facility] ED Clinical Summaryon 2022 ED Clinical Summary (Inserted Image. Margret ble to display) [place] [id number] ED Clinical Summary Person Information Name: MELBA ZAPATA [facility] Age: 68 Years : 1955 Sex: Female Language: Vincentian PCP: Martha Hathaway CNP Marital Status: Phone: [phone] Visit Id: Visit Reason: Knee pain-swelling; Wrist [...] 14:28:48 09/10/2023 14:28:48 09/10/2023 14:28:48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 02-02-2021 COVID-19, mRNA, LNP- S, PF, 30 mcg/0.3 mL dose; Translations: [Pfizer-BioNTech COVID-19 Vaccine] Martha Arellanoell [facility] Comment on above: Reason for Medicatio n: Prophylaxis 01-12-2021 COVID-19, mRNA, LNP- S, PF, 30 mcg/0.3 mL dose; Translations: [Pfizer-BioNTech COVID-19 Vaccine] Martha Arellanoell [facility] Comment on above: Reason for Medicatio n: Prophylaxis 08-10-2020 influenza virus vaccine, unspecified formulation Martha Arellanoell [facility] 09-03-2018 influenza virus vaccine, unspecified formulation Martha Hathaway [facility] NEGATED: Highlighted row has not occurred!10-21-2022 influenza virus vaccine, unspecified formulation Miguel Mactroy [facility] [place] Payers Date Payer Category Payer Unknown [id number] 2023 Worker's Compensation [id number] 2023 Worker's Compensation [id number] 1959 Medicare [id number] 1959 Unknown [id number] 1955 Unknown [id number] 2.16.84 [id number] 1955 Unknown [id number] 2.16.8 40.1.823225.3.579.2.174 1955 Unknown [id number] 2.16.8 40.1.433998.3.579.2.72 1955 Unknown [id number] 2.16.8 40.1.811390.3.579.2. 1955 Unknown [id number] 2.16.8 40.1.070473.3.579.2. 1955 Unknown [id number] 2.16.8 40.1.750743.3.579.2. 1955 Unknown [id number] 2.16.8 40.1.266669.3.579.2 1955 Unknown [id number] 2.16.8 40.1.551504.3.579.2 1955 Unknown [id number] 2.16.8 40.1.721784.3.579.2 1955 Unknown [id number] 2.16.8 40.1.997747.3.579.2 1955 Unknown [id number] 2.16.8 40.1.436872.3.579.2. 1955 Unknown [id number] 2.16.8 40.1.492333.3.579.2. 1955 Unknown [id number] 2.16.8 40.1.175582.3.579.2 1955 Unknown [id number] 2.16.8 40.1.409014.3.579.2. 1955 Unknown [id number] 2.16.8 40.1.809193.3.579.2 1955 Unknown [id number] 2.16.8 40.1.528488.3.579.2.72 1955 Unknown [id number] 2.16.8 40.1.898221.3.579.2.727 1955 Unknown [id number] 2.16.8 40.1.212805.3.579.2.727 1955 Unknown [id number] 2.16.8 40.1.455752.3.579.2.727 1955 Unknown [id number] 2.16.8 40.1.139730.3.579.2.727 1955 Unknown [id number] 2.16.8 40.1.827502.3.579.2.727 1955 Unknown [id number] 2.16.8 40.1.144718.3.579.2.727 1955 Unknown [id number] 2.16.8 40.1.671171.3.579.2.727 1955 Unknown [id number] 2.16.8 40.1.439686.3.579.2.727 1955 Unknown [id number] 2.16.8 40.1.028912.3.579.2.727 Social History Date Type Detail Facility Start: 10-02-2021 End: 12-10-2023 Tobacco smoking status Heavy tobacco smoker (finding) [facility] Comment on above: smokes 1/2 PPD smokes .5 [facility], start ed at age age 22 [facility] Comment on above: smokes 1/2 PPD smokes .5 [facility], start ed at age age 22 Patient states she s mokes around 2 cigarettes a day Sex Assigned At Female [facility] Start: 03-19-2024 End: 08-19-2024 Tobacco smoking status Light tobacco smoker (finding) [facility] Comment on above: smokes .5 [facility], start ed at age age 22 smokes 1/2 PPD Patient states she s mokes around 2 cigarettes a day Medical Equipment Procedure Code Equipment Code Equipment Origin al Text Equipment Identifier Dates FDA Start: 03-22-2019 FDA Start: 09-28-2019 [id number] FDA Start: 10-12-2019 CYSTOSCOPY RETRO GRADE [...] 03-22-2019 CATARACT EXTRACT ION W/ INTRAOCULAR LENS Og Day DO 09/28/19 Non Biological Eye L FDA Start: 09-28-2019 Functional Status Date Assessment Result Facility 08-19-2024 Functional Status N/A [facility] 05-26-2024 Functional Status N/A [facility] 05-26-2024 Functional Status No [facility] 04-14-2024 Functional Status N/A [facility] 03-19-2024 Functional Status N/A [facility] 12-10-2023 Functional Status N/A [facility] 10-30-2023 Functional Status N/A [facility] 08-21-2023 Functional Status N/A [facility] 10-21-2022 Functional Status N/A [facility] [place] 04-18-2022 Functional Status N/A [facility] Clinical Notes 04-18-2022 to 08-19-2024 Note Date & Type Note Facility 08-19-2024 Hospital Discharge instructions Patient Education 08/19/2024 09:23:48 Dietary Guidelines to Help Prevent Kidney Stones [...] about 300 mg of calcium at each meal. Foods that contain 200 500 mg of calcium a serving include: ?8 oz (237 mL) of milk, mudxzto-cezfbahjgtno-ggllc milk, and calcium-fortifiedfruit juice. Calcium-fortified means that calcium has been [...] the table and allow each person to add their own salt to taste. Use vegetable protein, such as beans, textured vegetable protein (TVP), or tofu, instead of meat in pasta, casseroles, and soups. Meal planning Eat less salt, if told by your dietitian. To do this: ?Avoid eating processed or pre-made food. ?Avoid eating fast food. Eat less animal protein, including cheese, meat, poultry, or fish, if told by your dietitian. To do this: ?Limit the number of times you have meat, poultry, fish, or cheese each week. Eat a diet free of meat at least 2 days a week. ?Eat only one serving each day of meat, poultry, fish, or seafood. ?When you prepare animal proteins, cut pieces into small portion sizes. For most meat and fish, one serving is about the size of the palm [...] ?Spinach (cooked), rhubarb, beets, sweet potatoes, and Hong [place]er chard. ?Peanuts. ?Potato chips, monegasque fries, and baked potatoes with skin on. ?Nuts and nut products. ?Chocolate. If you regularly take a diuretic medicine, make sure to eat at least 1 or 2 servings of fruits or vegetables that are high in potassium each day. These include: ?Avocado. ?Banana. ?[place], prune, carrot, or tomato juice. ?Baked potato. [...] magnesium, fish oil, or vitamin B6. Take lgpl-mww-znoxnxi and prescription medicines only as told by [...] Casseroles. Pizza. Lasagna. Frozen meals. Potato chips. Niuean fries. The items listed above may not be a complete list of foods and beverages you should limit. Contact a dietitian for more information. What foods should I avoid? Talk to your dietitian about specific foods you should avoid based on the type of kidney stones you have and your overall health. Fruits Grapefruit. The item listed above may not be a complete list of foods and beverages you should avoid. Contact a dietitian for more information. Summary Kidney stones are [...] provider. Document Revised: 01/30/2023 Document Reviewed: 01/30/2023 [employer] Patient Education 2023 [employer]. 08/19/2024 09:23:30 Ureteroscopy Ureteroscopy Ureteroscopy is a procedure to check for and treat problems inside part of the urinary tract. In this procedure, a long rigid or flexible tube with a lens and light at the end (ureteroscope) is used to look at the inside of the kidneys and the ureters. The ureters are the tubes that carry urine from the kidneys to the bladder. The ureteroscope is inserted into one or both of the ureters. You may need this procedure if you have frequent urinary tract infections (UTIs), blood in your urine, or a stone in one or both of your ureters. A ureteroscopy can be done: To find the cause of urine blockage in a ureter and to evaluate other abnormalities inside the ureters or kidneys. To remove stones. To remove or treat growths of tissue (polyps), abnormal tissue, and some types of tumors. To remove a tissue sample and check it for disease under a microscope (biopsy). Tell a health care provider about: Any allergies you have. All medicines you are taking, including vitamins, herbs, eye drops, creams, and ugvq-dvj-gynmuop medicines. Any problems you or family members have had with anesthetic medicines. Any bleeding problems you have. Any surgeries you have had. Any medical conditions you have. Whether you are or may be . What are the risks? Your health care provider will talk with you about risks. These may include: Abdominal pain or a burning feeling or pain while urinating. Abnormal bleeding. A UTI. Allergic reactions to medicines. Scarring that narrows the ureter (stricture) or swelling. Creating a hole (perforation) in the ureter. Damage to other structures or organs, such as the part of your body that drains urine from your bladder (urethra), your bladder, or your uterus. What happens before the procedure? When to stop eating and drinking 8 hours before your procedure ?Stop eating most foods. Do not eat meat, fried foods, or fatty foods. ?Eat only light foods, such as toast or crackers. ?All liquids are okay except energy drinks and alcohol. 6 hours before your procedure ?Stop eating. ?Drink only clear liquids, such as water, clear fruit juice, black coffee, plain tea, and sports drinks. ?Do not drink energy drinks or alcohol. 2 hours before your procedure ?Stop drinking all liquids. ?You may be allowed to take medicines with small sips of water. Medicines Ask your health care provider about: Changing or stopping your regular medicines. These include any diabetes medicines or blood thinners you take. Taking medicines such as aspirin and ibuprofen. These medicines can thin your blood. Do not take these medicines unless your health care provider tells you to. Taking rgui-vsa-evowyxp medicines, vitamins, herbs, and supplements. General instructions Do not use any products that contain nicotine or tobacco for at least 4 weeks before the procedure. These products include cigarettes, chewing tobacco, and vaping devices, such as e-cigarettes. If you need help quitting, ask your health care provider. If you will be going home right after the procedure, plan to have a responsible adult: ?Take you home from the hospital or clinic. You will not be allowed to drive. ?Care for you for the time you are told. Ask your health care provider what steps will be taken to help prevent infection. These may include: ?Washing skin with a soap that kills germs. ?Receiving antibiotic medicine. Tests You may have an exam or testing. ?You may have a urine sample taken to check for infection. What happens during the procedure? An IV will be inserted into one of your veins. You may be given: ?A sedative. This helps you relax. ?Anesthesia. This will: ?Numb certain areas of your body. ?Make you fall asleep for surgery. Your urethra will be cleaned with a germ-killing solution. The ureteroscope will be passed through your urethra into your bladder. A salt-water solution will be sent through the ureteroscope to fill your bladder. This will help the health care provider see the openings of your ureters more clearly. The ureteroscope will be passed into your ureter. ?If a growth is found, a biopsy may be done. ?If a stone is found, it may be removed through the ureteroscope, or the stone may be broken up using a laser, shock waves, or electrical energy. ?In some cases, if the ureter is too small, a tube may be inserted that keeps the ureter open (ureteral stent). The stent may be left in place for 1 or 2 weeks, and then the ureteroscopy procedure will be done again. The scope will be removed, and your bladder will be emptied. The procedure may vary among health care providers and hospitals. What happens after the procedure? Your blood pressure, heart rate, breathing rate, and blood oxygen level will be monitored until you leave the hospital or clinic. It is up to you to get the results of your procedure. Ask your health care provider, or the department that is doing the procedure, when your results will be ready. Summary Ureteroscopy is a procedure used to look at the inside of the kidneys and the ureters. You may need this procedure if you have frequent urinary tract infections (UTIs), blood in your urine, or a stone in one or both of your ureters. Follow instructions from your health care provider about eating and drinking. In some cases, if the ureter is too small, a tube may be inserted that keeps the ureter open (ureteral stent). The stent may be left in place for 1 or 2 weeks to keep the ureter open, and then the ureteroscopy procedure will be done again. This information is not intended to replace advice given to you by your health care provider. Make sure you discuss any questions you have with your health care provider. Document Revised: 09/22/2023 Document Reviewed: 09/22/2023 [employer] Patient Education 2023 [employer]. Follow Up Care 06/04/2024 15:39:21 With:Davin CONSTANTINO, SOWMYA Apodaca, URO Address: When: Unknown [facility] 08-19-2024 Note Patient Education Nephrology Dietary Guidelines to Help Prevent Kidney Stones [...] for following this plan? Reading food labels ? Choose foods with no salt added or low-salt labels. Limit your salt (sodium) intake to less than 1,500 mg a day. ? Choose foods with calcium for each meal and snack. Try to eat about 300 mg of calcium at each meal. Foods that contain 200?500 mg of calcium a serving include: ? 8 oz (237 mL) of milk, uxoazze-ivwvlclhagbh-iveof milk, and calcium-fortifiedfruit juice. Calcium-fortified means that calcium has been added to these drinks. ? 8 oz (237 mL) of kefir, yogurt, and soy yogurt. ? 4 oz (114 g) of tofu. ? 1 oz (28 g) of cheese. ? 1 cup (150 g) of dried figs. ? 1 cup (91 g) of cooked broccoli. ? One 3 oz (85 g) can of sardines or mackerel. Most people need 1,000?1,500 mg of calcium a day. Talk to your dietitian about how much calcium is recommended for you. Shopping ? Buy plenty of fresh fruits and vegetables. Most people do not need to avoid fruits and vegetables, even if these foods contain nutrients that may contribute to kidney stones. ? When shopping for convenience foods, choose: ? Whole pieces of fruit. ? Pre-made salads with dressing on the side. ? Low-fat fruit and yogurt smoothies. ? Avoid buying frozen meals or prepared deli foods. These can be high in sodium. ? Look for foods with live cultures, such as yogurt and kefir. ? Choose high-fiber grains, such as whole-wheat breads, oat bran, and wheat cereals. Cooking ? Do not add salt to food when cooking. Place a salt shaker on the table and allow each person to add their own salt to taste. ? Use vegetable protein, such as beans, textured vegetable protein (TVP), or tofu, instead of meat in pasta, casseroles, and soups. Meal planning ? Eat less salt, if told by your dietitian. To do this: ? Avoid eating processed or pre-made food. ? Avoid eating fast food. ? Eat less animal protein, including cheese, meat, poultry, or fish, if told by your dietitian. To do this: ? Limit the number of times you have meat, poultry, fish, or cheese each week. Eat a diet free of meat at least 2 days a week. ? Eat only one serving each day of meat, poultry, fish, or seafood. ? When you prepare animal proteins, cut pieces into small portion sizes. For most meat and fish, one serving is about the size of the palm of your hand. ? Eat at least five servings of fresh fruits and vegetables each day. To do this: ? Keep fruits and vegetables on hand for snacks. ? Eat one piece of fruit or a handful of berries with breakfast. ? Have a salad and fruit at lunch. ? Have two kinds of vegetables at dinner. ? You may be told to limit foods that are high in a substance called oxalate. These include: ? Spinach (cooked), rhubarb, beets, sweet potatoes, and Hong Konger chard. ? Peanuts. ? Potato chips, monegasque fries, and baked potatoes with skin on. ? Nuts and nut products. ? Chocolate. ? If you regularly take a diuretic medicine, make sure to eat at least 1 or 2 servings of fruits or vegetables that are high in potassium each day. These include: ? Avocado. ? Banana. ? [place], prune, carrot, or tomato juice. ? Baked potato. ? Cabbage. ? Beans and split peas. Lifestyle ? Drink enough fluid to keep your urine pale yellow. This is the most important thing you can do. Spread your fluid intake throughout the day. ? If you drink alcohol: ? Limit how much you have to: ? 0?1 drink a day for women who are not . ? 0?2 drinks a day for men. ? Know how much alcohol is in your drink. In the [place] one drink equals one 12 oz bottle of beer (355 mL), one 5 oz glass of wine (148 mL), or one 1? oz glass of hard liquor (44 mL). ? Lose weight if told by your health care provider. Work with your dietitian to find an eating plan and weight loss strategies that work best for you. General information ? Talk to your health care provider and dietitian about taking daily supplements. Depending on your health and the cause of your kidney stones, you may be told: ? Do not take high-dose supplements of vitamin C (1,000 mg a day or more). ? To take a calcium supplement. ? To take a daily probiotic supplement. ? To take other supplements such as magnesium, fish oil, or vitamin B6. ? Take jqwf-iyu-yhfpdrh and prescription medicines only as told by your health care provider. These include suppleme (more content not included)... [facility] 06-29-2024 Note [place] Electrophysiology Consult Note [place] Cardiology - [facility] Reason for visit: s/p PPM [...] she came for a device check at [facility], she was noted to have sinus rhythm with quileute conduction with a prolonged MT intervl. When the patient was asked to [...] Year: No Utilities: Not At Risk (05/27/2024) [facility] Utilities Threatened with loss of utilities: [...] morning. Do not crush or chew. HYDROcodone-acetaminophen ([place]) 5-325 mg tablet Take 1 tablet by [...] Physical Exam: Cons (more content not included)... [facility] 06-07-2024 Note [facility] Cardiology Clinic Note Chief Complaint: Patient [...] crush or chew., Disp: , Rfl: HYDROcodone-acetaminophen ([place]) 5-325 mg tablet, Take 1 tablet by [...] as scheduled. 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 [facility] 05-29-2024 Note 1215 Patient has discharge order in place. No order for PT placed at this time. Waiting to see OT. No wound care discovered at this time. Sent message to [facility] to confirm if patient should wait to see OT or if they are good to discharge without seeing OT, awaiting response. Barriers: -OT recs [facility] 05-29-2024 Note Cardiology Progress Note Subjective [...] Value Ventricular Rate 64 Atrial Rate 64 MT Interval 348 QRS DURATION 100 QT Interval 426 QTC CALCULATION(BAZETT) 439 P [place] 63 R-[place] 40 T Wave [place] 54 Impression Sinus rhythm with 1st degree [...] Value Ventricular Rate 76 Atrial Rate 76 MT Interval 208 QRS DURATION 186 QT Interval 484 QTC CALCULATION(BAZETT) 544 P [place] 54 R-[place] -47 T Wave [place] 102 Impression Atrial-sensed ventricular-paced rhythm Abnormal ECG When compared with ECG of 28-MAY-2024 07:14, Electronic ventricular pacemaker has replaced Sinus rhythm Transthoracic echo (TTE) limited Result Date: 05/27/2024 1 1 [facility] Heart Station [address] [place] [address] [phone] (fax) Echocardiogram-[facility] Name: MELBA ZAPATA Study Date: 05/27/2024 03:03 PM B/P: 153 mmHg/81 mmHg HR: Date of : 1955 Location: [facility] Height: 66 in. Age: 69 year(s) [...] IVC: The in (more content not included)... [facility] 05-28-2024 Note Indications for perm anent [...] of the upper extremity Nupur Mckay M.D. [facility] Child Care Lead Teacherdispensing optician apprentice and Pediatrics Director: Cardiac Electrophysiology Program [facility] 05-28-2024 Note Attestation signed by Dianne Benson MD at [...] today. Hopefully home tomorrow Dianne Benson MD, [facility] Cardiology Progress Note Subjective Subjective: Melba Zapata [...] Temporal 59 (!) 9 95 % -- 07/26/24 0600 -- -- -- 58 13 94 [...] Value Ventricular Rate 64 Atrial Rate 64 MT Interval 348 QRS DURATION 100 QT Interval 426 QTC CALCULATION(BAZETT) 439 P [place] 63 R-[place] 40 T Wave [place] 54 Impression Sinus rhythm with 1st degree A-V block Cannot rule out Inferior infarct , age undetermined Abnormal ECG When compared with ECG of 27-MAY-2024 12:38, (unconfirmed) Minimal criteria for Inferior infarct is now Present Confirmed by Miguel A SANCHEZ, L.S. (2) on 05/28/2024 12:17:41 PM Lab Results Component Value Date TROPONINI 0.00 05/27/2024 Transthoracic echo (TTE) limited Result Date: 05/27/2024 1 1 [facility] Heart Station [address] [place] [address] [phone] (fax) Echocardiogram-[facility] Name: MELBA ZAPATA Study Date: 05/27/2024 03:03 PM B/P: 153 mmHg/81 mmHg HR: Date of : 1955 Location: [facility] Height: 66 in. Age: 69 year(s) [...] Doppler studies sug (more content not included)... [facility] 05-28-2024 Note Hospital Medicine Daily Progress Note - 05/28/2024 12:57 PM; Room: 3184/3184-01 Admission: 05/27/2024 11:02 AM; Length of stay: 1 days THE HOSPITALIST TEAM PREFERS TO USE [employer] FOR COMMUNICATION 7AM-7PM. IF I DO NOT RESPOND WITHIN 15 MINUTES, PLEASE PAGE ME/CALL THROUGH THE GLOVE OPERATOR. FROM 7PM-7AM, PLEASE PAGE [phone](COVR) Code Status: Full Code Barriers to Discharge: [...] not have recordings from her monitor in [facility] or during the surgery. - Continue to monitor rhythm. I think we should obtain the rhythm strips from [facility] and review to confirm that she had second-degree AV block with significant bradycardia as reported. Essential hypertension Continue hydrochlorothiazide, lisinopril Gallstones s/p cholecystectomy 05/22/2024 Tylenol for mild pain, [place] for severe pain Current smoker Nicotine patch [...] TSH 0.43 05/27/2024 No results found for: OIBXCLNY10 , IRON , TIBC , C3 , [...] infarct is now (more content not included)... [facility] 05-27-2024 Note Case was discussed w [employer] the LISA on 05/27/2024. I agree with the history, physical, assessment, and plan of care. I discussed the findings and therapeutic plan. I agree with the documentation, except for any updates below. Carlos Villarreal MD [facility] 05-27-2024 Note 05/27/24 1426 Admission Assessment [...] Status Interested Does the patient have a case management social worker assigned to them through their insurance? No Living Arrangement (Current/Prior to Hospitalization) Private residence (live alone, 10 steps it get in, one story after that) Does the patient have history of HHC or SNF? Yes ([facility]HC, [facility] not [facility]) Assistive Device Not applicable Patient's [...] to send link and activate MyChart? Yes [facility] 05-27-2024 Note Hospital Medicine History and Physical 05/27/2024 2:09 PM THE HOSPITALIST TEAM PREFERS TO USE [employer] FOR COMMUNICATION 7AM-7PM. IF I DO NOT RESPOND WITHIN 15 MINUTES, PLEASE PAGE ME/CALL THROUGH THE GLOVE OPERATOR. FROM 7PM-7AM, PLEASE PAGE [phone](COVR) Chief Complaint No chief complaint on file. History of Present Illness Melba Zapata is an 69 y.o. female who came from [facility] with concerns for complete heart block. Patient reports this all started when she had broken her wrist, she had EKG done at that time which showed an abnormality leading her to have an echocardiogram done With our cardiology team in [place]. During her appointment to go over her echo results which were normal, her EKG showed that she was in a heart block, so she was prescribed a Holter monitor. Yesterday she presented to [facility] for a planned cholecystectomy 2/2 gallstones. During the procedure it was reported that they had to give her atropine due to low heart rates. Her physician there then received a call with results of her Holter monitor saying that there were signs of complete heart block and requested transfer to [facility] for evaluation by our electrophysiology service. [...] Wenckebach atrioventricular block 05/14/2024 Complete heart block (CMS/HCC) 05/27/2024 Abrasion, right lower leg, initial encounter [...] multiple sites 02/11/2014 (more content not included)... [facility] 05-27-2024 Note Progress Note-Physic rodrigo Patient: [...] when meets criteria ( To home ). [facility] Comment on above: [...] Problems Vitamin D deficiency / SNOMED CT 82610819 / Confirmed Urinary urgency / SNOMED CT 866624342 / Confirmed Urge incontinence / SNOMED CT 802688790 / Confirmed Smoker / SNOMED CT 590195866 / Confirmed Class 3 severe obesity with serious comorbidity in adult / SNOMED CT 2645433071 / Confirmed Added per Anali Barnes query response, per outpatient CDI policy. Need for tetanus booster / SNOMED CT 4728065660 / Confirmed Major depressive disorder, recurrent, mild / SNOMED CT 247214977 / Confirmed Added per Anali Barnes query response, per outpatient CDI policy. Emphysema of lung / SNOMED CT 465842125 / Confirmed Wellness examination / SNOMED CT 044545663 / Confirmed Screening for breast cancer / SNOMED CT 523747561 / Confirmed Osteopenia / SNOMED CT 897001488 / Confirmed OA (osteoarthritis) of hip / SNOMED CT 267775513 / Confirmed Nocturia / SNOMED CT 255902027 / Confirmed Hyperlipidemia / SNOMED CT 571452813 / Confirmed Kidney stones / SNOMED CT [id number] ED30 / Confirmed Hyperglycemia / SNOMED CT 228621609 / Confirmed Hydronephrosis / SNOMED CT 26358140 / Confirmed Hip pain, left / SNOMED CT 76279234 / Confirmed Worsening headaches / SNOMED CT 08290720 / Confirmed Gall stones / SNOMED CT 253686084 / Confirmed Radius fracture / SNOMED CT 67447802 / Confirmed R distal radius fx Fracture of right wrist with routine healing / SNOMED CT 4939727390 / Confirmed Flank pain / SNOMED CT 062183163 / Confirmed Personal history of tobacco use / SNOMED CT 7965618578 / Confirmed Fatigue / SNOMED CT 625890887 / Confirmed FHx: thyroid cancer / SNOMED CT 9165187487 / Confirmed Herniated cervical disc / SNOMED CT 3598053320 / Confirmed Patient had no falls in past year / SNOMED CT 9364678196 / Confirmed Cervical spine degeneration / SNOMED CT 9189996593 / Confirmed BMI 40.0-44.9, adult / SNOMED CT 9916561917 / Confirmed Benign essential HTN / SNOMED CT 6082268 / Confirmed Abrasion, right lower leg, initial encounter / SNOMED CT 0564095727 / Confirmed Resolved: Tobacco abuse / SNOMED CT 661721970 Resolved: Scleroderma / SNOMED CT 741468020 inactive Resolved: Smoker / SNOMED CT 275404791 Added secondary to documentation in Social History. Resolved: Sicca syndrome / SNOMED CT 534218995 Resolved: Sinus congestion / SNOMED CT 315983335 Resolved: BMI 37.0-37.9, adult / SNOMED CT 656830324 Resolved: At risk for falls / SNOMED CT 993090992 Problem added when Risk for Falls Careplan was initiated. Resolved due to patient discharge. Resolved: Asthma / SNOMED CT 762909862 Resolved: Anxiety / SNOMED CT 94682988 Canceled: Urinary urgency / SNOMED CT 443461321 Canceled: Tobacco use disorder / SNOMED CT 033264438 Canceled: Smoker / IMO 298957 Added secondary to documentation in Social History. Canceled: Obesity due to excess calories / SNOMED CT 3072610003 Canceled: Encounter for wellness examination in adult / SNOMED CT 891668287 Canceled: Osteopenia / SNOMED CT 073821576 Canceled: Current smoker on some days / SNOMED CT 1856112952 Canceled: Obesity, Class II, BMI 35-39.9 / SNOMED CT 6263639222 Canceled: Class 1 obesity with body mass index (BMI) of 30.0 to 30.9 in adult / SNOMED CT 4734321817 Canceled: Class 1 obesity with body mass index (BMI) of 34.0 to 34.9 in adult / SNOMED CT 2799067462 Canceled: Obesity due to excess calories / SNOMED CT 4091757652 Canceled: Neck pain on right side / SNOMED CT 810453646 Canceled: Nasal congestion / SNOMED CT 957192582 Canceled: Frequent urination / SNOMED CT 084020520 Canceled: Hydronephrosis due to obstruction of ureter / SNOMED CT 7911128973 Canceled: HTN (hypertension) / SNOMED CT [id number] 8320 Canceled: Hammertoe / SNOMED CT 080740675 Canceled: Gene (more content not included)... [facility] [...] 2022 Author:Scout Campbell Jr, DO Date:05/26/24 Plan [place] [employer] Anesthesiologists (ASA) physical status classification: Class III. Anesthetic Preoperative Plan: Anesthesia General. Future Appointments Appointment Date:06/04/2024 08:20:00 AM Scheduled Provider:Aakash Levy MD Location:[facility] Appointment Type:GS Post Op 15 Appointment Date:07/12/2024 02:00:00 PM Scheduled Provider:Antonio FUENTES MD Location[place] [place] Appointment Type:URO New Patient Appointment Date:07/13/2024 02:30:00 PM Scheduled Provider: Location:[facility] Appointment Type: Medicare Wellness Subsequent Appointment Date:07/15/2024 02:00:00 PM Scheduled Provider:Beatrice Ingram Location:[facility] Appointment Type: Open Future Scheduled Tests Laboratory* Basic Metabolic Panel 04/14/24 Radiology* MA Mamm Screen w/CAD if perf and 3D Jai 12/10/23 [facility] 07-24-2024 Evaluation + Plan noteExtracted from: Title:ED Note Author:Krystyna BLEDSOE, Malcolm Field te:05/26/24 1. Complete heart block (I44 .2: Atrioventricular block, complete) 2. Dizziness, (R42: Dizziness and giddiness)Lightheaded Orders: Basic Metabolic Panel CBC w/ Auto Diff ED Cardiac Monitoring eGFR Extra SST Tube PT & PTT Saline Lock Insert Troponin 0 Hr. Troponin 1 Hr. XR Chest Single View Future Appointments Appointment Date:06/04/2024 08:20:00 AM Scheduled Provider:Aakash Levy MD Location:[facility] Appointment Type:GS Post Op 15 Appointment Date:07/12/2024 02:00:00 PM Scheduled Provider:Antonio FUENTES MD Location[place] [place] Appointment Type:URO New Patient Appointment Date:07/13/2024 02:30:00 PM Scheduled Provider: Location:[facility] Appointment Type:FM Medicare Wellness Subsequent Appointment Date:07/15/2024 02:00:00 PM Scheduled Provider:Beatrice Ingram Location:[facility] Appointment Type: Open Future Scheduled Tests Laboratory* Basic Metabolic Panel 04/14/24 Radiology* MA Mamm Screen w/CAD if perf and 3D Jai 12/10/23 [facility] 07-24-2024 Hospital Discharge instructions Patient Education 05/26/2024 [...] Follow these instructions at home: Medicines Take dlwh-aeq-iucnuqp and prescription medicines only as told by [...] to keep your urine pale yellow. ?Take nkid-slb-srwfckz or prescription medicines. ?Eat foods that are [...] and water are not available, use hand distribution specialist. ?Change your dressing as told by your [...] provider. Document Revised: 04/23/2022 Document Reviewed: 04/23/2022 [employer] Patient Education 2022 [employer]. Follow Up Care 04/27/2024 14:52:37 With:Aakash Levy Address: [facility] [address] [phone] [facility] (1) When: Unknown Comments:Appointment has already been scheduled [facility] 07-24-2024 NoteProvider reviewed event monitor strip with Dr Mateo Mckay in light no response received from Dr Puentes- which may be r/t his schedule/vacation. Dr Mckay states to have pt admitted to [facility] for Third degree heart block. Provider attempted to call pt and went directly to voice mail that is Full. Attempted to call her second contact- Friend Anne and this also went directly to voice mail. Staff will continue to attempt to call her to either come to [facility] ED and transfer to [facility] or directly to [facility] for admission. Addendum- Was able to reach pt and D/W pt that event monitor shows 3rd degree heart block and Dr Mateo Mckay recommends pt to go to ED/ or [facility] for admission for heart block and most likely will need perm pacemaker insertion and she voiced understanding. [facility] Admission/beds called and notified. Pt states she is going to [facility] per request of her general surgeon and will ask for transfer from there. Debbie Bailey [facility] Cardiology Available 7a-5pm via [employer] Chat Pager [phone] [facility]aritan [facility]07-[facility] NotePatient Education - Text Gastroenterology Minimally [...] these instructions at home: Medicines ? Take bqrg-dsx-gfjktoh and prescription medicines only as told by [...] keep your urine pale yellow. ? Take ikak-psg-ibpyayy or prescription medicines. ? Eat foods that [...] and water are not available, use hand distribution specialist. ? Change your dressing as told by [...] pain around the incisions. (more content not included)...[facility]07-24-2024 NoteH&P Update History and Physical Update H&P [...] Film, 1 patch(es), Topical, Daily, 1 refills [place] 325 mg-5 mg oral tablet, 1 tab(s), [...] Father. Melanoma: Sister. TIA (transient ischemic attack): Mother.[facility]07-13-2024 NoteRecommended smoking cessationUnGood Samaritan Hospital07-13-2024 NoteHypertension is unchanged. Continue current medications. Blood pressure will be reassessed at the next regular appointment.[facility]07-12-2024 NoteRoutine stress test and 30 day event monitor To assess chronotropic response and for any higher grade AV block.[facility]07-12-2024 NotePatient here for 6 mo follow up. She had echo last week. She needs cleared for cholecystectomy scheduled for 05/26/2024 at [facility]. Denies chest pain and palpitations. She is now on antihypertensive medication. Review of Systems Cardiovascular: Positive for dyspnea on exertion (with steps) and leg swelling (resolves by morning). Respiratory: Positive for cough and wheezing. Musculoskeletal: Positive for arthritis, joint pain and neck pain. Psychiatric/Behavioral: Positive for depression. All other systems reviewed and are negative.[facility] 05-14-2024 NotePt has received a PPM and has F/U with Dr Puentes yesterday [facility]07-12-2024 NoteUTP CARDIOLOGY PROGRESS NOTE HPI: Melba Zapata is a 69 y.o. female here for surgery clearance and review echocardiogram HPI 69 y.o. female here with past medical history of tobacco dependence, depression and arthritis. Patient here for 6 mo follow up. She had echo last week. She needs cleared for cholecystectomy scheduled for 05/26/2024 at [facility]. Denies chest pain and palpitations. She is [...] Risk 6.0 % 30-day risk of , ID, or cardiac arrest Pt has good functional/aerobic [...] the next regular appointment. Smoker Recommended smoking cessationMemorial Health System [facility]07-12-2024 Note RCRI=1 points Class II Risk 6.0 % 30-day risk of , ID, or cardiac arrest Pt has good functional/aerobic capacity- > 4 METS Reviewed EKG with Dr Puentes-electrophysiology and he recommends that in light she is asymptomatic with Joshua she may proceed with planned surgery. From a cardiac perspective pt may proceed with surgery, she is a low risk for a low to moderate risk procedure. Please monitor hemodynamics carefully and prevent any major fluid shifts. This is good for next 6 monthsMem[facility]06-[facility] Hospital Discharge instructions Patient Education 04/14/2024 [...] provider. Document Revised: 07/04/2022 Document Reviewed: 07/04/2022 [employer] Patient Education 2022 [employer]. 04/14/2024 15:14:42 Obesity, Adult Obesity, Adult Obesity [...] food choices, such as grocery stores and [employer] markets. What are the signs or symptoms? The [...] and how much exercise you get. Take cfmv-rio-vakspwa and prescription medicines only as told by [...] provider. Document Revised: 05/28/2022 Document Reviewed: 05/28/2022 [employer] Patient Education 2022 [employer]. 04/14/2024 15:14:41 Exercising to Lose Weight Exercising [...] your health care provider or diet and public health nutritionist (dietitian). This may include: ?Eating fewer [...] provider. Document Revised: 12/16/2021 Document Reviewed: 12/16/2021 [employer] Patient Education 2022 [employer]. 04/14/2024 15:14:37 Chronic Obstructive Pulmonary Disease Chronic [...] Follow these instructions at home: Medicines Take mlyb-qec-ujviape and prescription medicines only as told by [...] provider. Document Revised: 08/28/2021 Document Reviewed: 08/28/2021 [employer] Patient Education 2022 [employer]. 04/14/2024 15:14:33 How to Use a Dry Powder Inhaler, Yyrp-ef-Kcbf How to Use a Dry Powder Inhaler [...] number is low, it is time to parts picker a new DPI at your pharmacy. [...] is important. Where to find more information [place] Lung Association: www.lung.org Contact a doctor if: [...] provider. Document Revised: 11/21/2020 Document Reviewed: 11/21/2020 [employer] Patient Education 2022 [employer]. 04/14/2024 15:14:26 Heart Disease Prevention Heart Disease [...] of hard liquor (44 mL). Medicines Take eija-wqg-leywasz and prescription medicines only as told by [...] Centers for Disease Control and Prevention: www.cdc.gov/heartdisease [place] Heart Association: www.heart.org Summary Heart disease is [...] provider. Document Revised: 06/19/2022 Document Reviewed: 06/19/2022 [employer] Patient Education 2022 [employer]. 04/14/2024 15:14:23 Stroke Prevention Stroke Prevention Some [...] as: ?Fast walking. ?Biking. ?Swimming. Medicines Take ryby-eai-sbgjihv and prescription medicines only as told by [...] blood clot. Where to find more information [place] Stroke Association: www.strokeassociation.org Get help right away [...] provider. Document Revised: 05/21/2021 Document Reviewed: 05/21/2021 [employer] Patient Education 2022 [employer] 04/14/2024 15:14:19 High Triglycerides Eating Plan High [...] meats. Dairy Whole or reduced-fat (2%) milk. Xtdv-ykw-aolf. Cream cheese. Full-fat or sweetened yogurt. Full-fatcheese. Nondairy creamers. Whipped toppings. Processed cheese or cheese spreads. Cheese curds. Fats and oils Butter. Stick margarine. Lard. Shortening. Ghee. Jaime fat. Tropical oils, such as coconut, palm kernel, or palm oils. Beverages Alcohol. Sweetened drinks, such as soda, lemonade, fruit drinks, or punches. Sweets and desserts [place] syrup. Sugars. Honey. Molasses. Candy. Jam and [...] provider. Document Revised: 03/01/2022 Document Reviewed: 03/01/2022 [employer] Patient Education 2022 [employer] 04/14/2024 15:14:17 Dyslipidemia Dyslipidemia Dyslipidemia is an [...] help quitting, ask your health careprovider. Take dgyz-war-akcxprj and prescription medicines only as told by [...] provider. Document Revised: 12/24/2021 Document Reviewed: 12/24/2021 [employer] Patient Education 2022 [employer]. 04/14/2024 15:14:14 Flank Pain, Adult Flank Pain, [...] told by your health care provider. Take hzqc-lfj-lpdzgjy and prescription medicines only as told by [...] provider. Document Revised: 12/31/2021 Document Reviewed: 12/31/2021 [employer] Patient Education 2022 [employer]. 04/14/2024 15:13:13 Vitamin D Deficiency Vitamin D [...] dietitian for more information. General instructions Take qyao-mip-pfedrsq and prescription medicines only as told by [...] provider. Document Revised: 07/26/2022 Document Reviewed: 07/26/2022 [employer] Patient Education 2022 [employer]. 04/14/2024 15:13:12 Preventing Vitamin D Deficiency Preventing [...] such as almond, soy, or oat milks. ?[place] juice. ?Margarine. When choosing foods, check the [...] including vitamins, herbs, eye drops, creams, and kobb-dyr-cgwxnyf medicines. Take smxu-xtj-wbwzidw and prescription medicines only as told by [...] provider. Document Revised: 07/26/2022 Document Reviewed: 07/26/2022 [employer] Patient Education 2022 [employer]. 04/14/2024 15:13:10 Abrasion Abrasion An abrasion is [...] instructions at home: Medicines Take or apply mvnh-prh-jixvgjm and prescription medicines only as told by [...] provider. Document Revised: 01/18/2021 Document Reviewed: 01/18/2021 [employer] Patient Education 2022 [employer]. 04/14/2024 15:13:02 Cholelithiasis Cholelithiasis Cholelithiasis is a [...] Follow these instructions at home: Medicines Take ugxr-svm-ghlfeaw and prescription medicines only as told by [...] important. Where to find more information National [place] of Diabetes and Digestive and Kidney Diseases: [...] provider. Document Revised: 09/11/2020 Document Reviewed: 09/11/2020 [employer] Patient Education 2022 [employer]. 04/14/2024 14:44:26 Hypertension, Adult Hypertension, Adult High [...] follow-up visits. This is important. Medicines Take mrqs-jqx-koheskn and prescription medicines only as told by [...] provider. Document Revised: 08/27/2022 Document Reviewed: 08/27/2022 [employer] Patient Education 2022 [employer] 04/14/2024 14:44:20 Form - Blood Pressure Record [...] provider. Document Revised: 07/04/2022 Document Reviewed: 07/04/2022 [employer] Patient Education 2022 [employer]. 04/14/2024 14:44:14 Carbohydrate Counting for Diabetes Mellitus, [...] 1.Identify the foods that contain carbohydrates: Rice. [place]. Milk. Strawberries. 2.Calculate how many servings you [...] and snacks. Where to find more information [place] Diabetes Association: diabetes.org Centers for Disease Control [...] provider. Document Revised: 05/23/2021 Document Reviewed: 05/23/2021 [employer] Patient Education 2022 [employer]. 04/14/2024 14:44:11 Calorie Counting for Weight Loss [...] provider. Document Revised: 11/30/2020 Document Reviewed: 11/30/2020 [employer] Patient Education 2022 [employer]. 04/14/2024 14:44:05 Mediterranean Diet Mediterranean Diet A [...] fresh fruits and vegetables in-season from local [employer] markets. Buy plain frozen fruits and vegetables. [...] in common dishes like chili or lasagna. [place] with different cooking methods. Try roasting, broiling, [...] available, such as: ?Vegetable sticks with hummus. ?Senegalese yogurt. ?Fruit and nut trail mix. Eat [...] Quinoa. Meats and other proteins Beans. Almonds. [place] seeds. [place] nuts. Peanuts. Cod. [place]. Scallops. Shrimp. Tuna. Tilapia. Clams. Oysters. Eggs. Poultry without skin. Dairy Low-fat milk. Cheese. Senegalese yogurt. Fats and oils Extra-virgin olive oil. Avocado oil. Grapeseed oil. Beverages Water. Red wine. Herbal tea. Sweets and desserts [place]egalese yogurt with honey. Baked apples. Poached pears. Reading mix. Seasonings and condiments Basil. Cilantro. Coriander. [...] Fruit canned in syrup. Vegetables Deep-fried potatoes (monegasque fries). Grains Prepackaged pasta or rice dishes. [...] provider. Document Revised: 11/24/2020 Document Reviewed: 09/21/2020 [employer] Patient Education 2022 [employer]. Follow Up Care 03/19/2024 16:02:59 With:Beatrice Ingram FAM, MED Address: [address], [address] [facility] [address] [place] [address]- When:Within 3 Month(s) Comments:f/u labs, HTN, EMphysema, SOB, PFTs, gall bladder and kidney stones. [facility] 06-12-2024 Evaluation + Plan note Future Scheduled Tests Laboratory* Basic Metabolic Panel 04/14/24 Radiology* CT Abdomen/Pelvis w/o Contrast 08/19/24 * MA Mamm Screen w/CAD if perf and 3D Jai 12/10/23 [facility] 06-12-2024 Evaluation + Plan note Future Scheduled Tests Laboratory* Basic Metabolic Panel 04/14/24 Radiology* MA Mamm Screen w/CAD if perf and 3D Jai 12/10/23 [facility] 05-17-2024 Hospital Discharge instructions Patient Education 03/19/2024 [...] things, which may include: Your personality traits. [place] or conditioned behaviors or thoughts or feelings [...] your health care provider. General instructions Take fvsn-yrj-kozhctn and prescription medicines only as told by your health care provider. Eat a healthy diet and get plenty of sleep. Consider joining a support group. Your health care provider may be able to recommend one. Keep all follow-up visits as told by your health care provider. This is important. Where to find more information National [place] on Mental Illness: www.anthony.org U.[place]. National [place] of Mental Health: www.nimh.nih.gov Contact a health [...] the National Suicide Prevention Lifeline at or 988 in the U.S. This is open 24 hours a day in the [place] Text the Crisis Text Line at 273705 (in the [place] Summary Major depressive disorder [...] provider. Document Revised: 05/15/2022 Document Reviewed: 09/30/2020 [employer] Patient Education 2022 [employer]. 03/19/2024 16:01:34 BMI for Adults BMI for [...] numbers. This can be done either in Vincentian ([place] or metric measurements. Note that charts and online BMI calculators are available to help you find your BMI quickly and easily without having to do these calculations yourself. To calculate your BMI in Vincentian ([place] measurements: 1.Measure your weight in pounds [...] Centers for Disease Control and Prevention: www.cdc.gov [place] Heart Association: www.heart.org National Heart, Lung, and Blood Snook: www.nhlbi.nih.gov Summary Body mass index (BMI) is a number that is calculated from a person's weight and height. BMI may help estimate how much of a person's weight is composed of fat. BMI can help identify thosewho may be at higher risk for certain medical problems. BMI can be measured using Vincentian measurements or metric measurements. BMI charts are used to identify whether you are underweight, normal weight, overweight, or obese. This information is not intended to replace advice given to you by your health care provider. Make sure you discuss any questions you have with your health care provider. Document Revised: 07/12/2020 Document Reviewed: 05/19/2020 [employer] Patient Education 2022 [employer]. 03/19/2024 16:01:30 Heart Disease Prevention Heart Disease [...] of hard liquor (44 mL). Medicines Take teyi-peu-xighqag and prescription medicines only as told by [...] Centers for Disease Control and Prevention: www.cdc.gov/heartdisease [place] Heart Association: www.heart.org Summary Heart disease is [...] provider. Document Revised: 06/19/2022 Document Reviewed: 06/19/2022 [employer] Patient Education 2022 [employer]. 03/19/2024 16:01:30 Familial Hypercholesterolemia Familial Hypercholesterolemia Familial [...] may recommend: ?Working with a diet and public health nutritionist (dietitian), who can help you make a [...] conditions affect your heart. General instructions Take rqov-whb-vnrxfha and prescription medicines only as told by [...] provider. Document Revised: 12/24/2021 Document Reviewed: 12/24/2021 [employer] Patient Education 2022 [employer]. 03/19/2024 16:01:29 Dyslipidemia Dyslipidemia Dyslipidemia is an [...] help quitting, ask your health careprovider. Take azhj-tsx-qmkynhy and prescription medicines only as told by [...] provider. Document Revised: 12/24/2021 Document Reviewed: 12/24/2021 [employer] Patient Education 2022 [employer]. 03/19/2024 16:01:27 Dietary Guidelines to Help Prevent [...] include: ?8 oz (237 mL) of milk, tginaha-alruoreehfrv-bcaoi milk, and calcium- fortifiedfruit juice. Calcium-fortified means [...] ?Spinach (cooked), rhubarb, beets, sweet potatoes, and Hong [place]er chard. ?Peanuts. ?Potato chips, monegasque fries, and baked potatoes with skin on. ?Nuts and nut products. ?Chocolate. If you regularly take a diuretic medicine, make sure to eat at least 1 or 2 servings of fruits or vegetables that are high in potassium each day. These include: ?Avocado. ?Banana. ?[place], prune, carrot, or tomato juice. ?Baked potato. [...] magnesium, fish oil, or vitamin B6. Take mzfh-pqg-xeszkia and prescription medicines only as told by [...] Casseroles. Pizza. Lasagna. Frozen meals. Potato chips. Niuean fries. The items listed above may not [...] provider. Document Revised: 01/30/2023 Document Reviewed: 01/30/2023 [employer] Patient Education 2022 [employer]. 03/19/2024 16:01:22 Heart Disease Prevention Heart Disease [...] of hard liquor (44 mL). Medicines Take xssa-pdh-gehbnwv and prescription medicines only as told by [...] Centers for Disease Control and Prevention: www.cdc.gov/heartdisease [place] Heart Association: www.heart.org Summary Heart disease is [...] provider. Document Revised: 06/19/2022 Document Reviewed: 06/19/2022 [employer] Patient Education 2022 [employer] 03/19/2024 16:01:22 Form - Blood Pressure [...] provider. Document Revised: 07/04/2022 Document Reviewed: 07/04/2022 Elsevier Patient Education 2022 [employer] Inc. 03/19/2024 16:01:21 DASH Eating Plan DASH Eating [...] Dairy Whole or 2% milk, cream, and ozbf-zyx-ikgo. Whole or full-fat cream cheese. Whole-fat or [...] more information National Heart, Lung, and Blood Snook: www.nhlbi.nih.gov [place] Heart Association: www.heart.org Academy of Nutrition and [...] provider. Document Revised: 09/22/2020 Document Reviewed: 09/22/2020 [employer] Patient Education 2022 [employer]. Follow Up Care 03/16/2024 10:03:20 With:Beatrice Ingram FAM, MED Address: [address] [place] [address] [address]- When:Within 1 Month(s) Comments:f/u labs, HTN, [facility] 02-07-2024 Hospital Discharge instructions [...] of the medicines you are taking, including ganf-qlg-idpxybu medicines. Ask your health care provider about [...] feel dizzy, tiredness (fatigue), or off-balance. Take kyls-nit-cnfojsb and prescription medicines only as told by [...] provider. Document Revised: 03/11/2022 Document Reviewed: 03/11/2022 [employer] Patient Education 2022 [employer]. 12/10/2023 17:55:54 Osteopenia Osteopenia Osteopenia is a [...] hard liquor (44 mL). General instructions Take sbom-qtm-zylhbbf and prescription medicines only as told by [...] provider. Document Revised: 04/05/2021 Document Reviewed: 04/05/2021 [employer] Patient Education 2022 [employer]. 12/10/2023 17:55:49 Heart Disease Prevention Heart Disease [...] of hard liquor (44 mL). Medicines Take fukn-vgk-yqutriy and prescription medicines only as told by [...] Centers for Disease Control and Prevention: www.cdc.gov/heartdisease [place] Heart Association: www.heart.org Summary Heart disease is [...] provider. Document Revised: 06/19/2022 Document Reviewed: 06/19/2022 [employer] Patient Education 2022 [employer]. 12/10/2023 17:55:48 DASH Eating Plan DASH Eating [...] Dairy Whole or 2% milk, cream, and eqtu-sva-vvig. Whole or full-fat cream cheese. Whole-fat or [...] more information National Heart, Lung, and Blood Snook: www.nhlbi.nih.gov [place] Heart Association: www.heart.org Academy of Nutrition and [...] provider. Document Revised: 09/22/2020 Document Reviewed: 09/22/2020 [employer] Patient Education 2022 [employer]. 12/10/2023 17:55:46 Major Depressive Disorder, Adult Major [...] things, which may include: Your personality traits. [place] or conditioned behaviors or thoughts or feelings [...] your health care provider. General instructions Take qyrx-dlv-goprpwc and prescription medicines only as told by your health care provider. Eat a healthy diet and get plenty of sleep. Consider joining a support group. Your health care provider may be able to recommend one. Keep all follow-up visits as told by your health care provider. This is important. Where to find more information National [place] on Mental Illness: www.anthony.org U.[place]. National [place] of Mental Health: www.nimh.nih.gov Contact a health [...] department or: Call your local emergency services (701 in the U.S[place] Call a suicide crisis helpline, such as the National Suicide Prevention Lifeline at or 291 in the U.S. This is open 24 hours a day in the [place]. Text the Crisis Text Line at 180717 (in the U.S.). Summary Major depressive disorder [...] provider. Document Revised: 05/15/2022 Document Reviewed: 09/30/2020 [employer] Patient Education 2022 [employer] 12/10/2023 17:55:43 Fatigue Fatigue If you have [...] Follow these instructions at home: Medicines Take dmal-zgp-bglanys and prescription medicines only as told by [...] the National Suicide Prevention Lifeline at or 571. This is open 24 hours a day. Text the Crisis Text Line at 913774. Summary If you have fatigue, you feel [...] provider. Document Revised: 08/12/2022 Document Reviewed: 08/12/2022 [employer] Patient Education 2022 [employer]. Follow Up Care 10/30/2023 15:21:43 With:Beatrice Ingram [facility] [address] [facility] [address] [address]- When:Within 4 Week(s) Comments:Follow-up on ultrasound of the kidney, CT chest, lab results, hypertension, smoking sensation, [facility] 02-01-2024 Evaluation + Plan note Future Appointments Appointment Date:12/11/2023 01:45:00 PM Scheduled Provider: Location:FT.OCCUPATIONAL Appointment Type:OT 60 (FT) Appointment Date:12/15/2023 02:15:00 PM Scheduled Provider: Location:.OCCUPATIONAL Appointment Type:OT 60 (FT) Appointment Date:12/16/2023 02:00:00 PM Scheduled Provider: Location:.[facility]CCUPATIONAL Appointment Type:OT 60 (FT) Appointment Date:12/18/2023 08:15:00 AM Scheduled Provider: Location:.[facility]CCUPATIONAL Appointment Type:OT Re-Eval (FT) Appointment Date:01/21/2024 01:40:00 PM Scheduled Provider:Beatrice Ingram Location:[facility] Appointment Type:FM Open Appointment Date:07/13/2024 02:30:00 PM Scheduled Provider: Location:[facility] Appointment Type: Medicare Wellness Subsequent Future [...] w/CAD if perf and 3D Jai 12/10/23 [facility] 12-28-2023 Hospital Discharge instructions [...] a fast heartbeat, dizziness, or weakness), call -- and get the person to the nearest hospital. For other signs that concern you, call your health care provider. Adverse reactions should be reported to the Vaccine Adverse Event Reporting System (VAERS). Your health care provider will usually file this report, or you can do it yourself. Visit the VAERS websiteat www.vaers.[facility].gov or call . VAERS is only for reporting reactions, and [facility] staffdo not give medical advice. 6. How can I learn more? Ask your health care provider. Call your local or state health department. Contact the Centers for Disease Control and Prevention (CDC): ?Call (1-620-TPK-INFO) or ?Visit CDC's website at www.cdc.gov/vaccines Source: CDC Vaccine Information Statement PPSV23 Vaccine (09/01/2019) This same material is available at www.cdc.gov for no charge. This information is not intended to replace advice given to you by your health care provider. Make sure you discuss any questions you have with your health care provider. Document Revised: 09/18/2022 Document Reviewed: 07/22/2022 [employer] Patient Education 2022 [employer]. 10/30/2023 15:37:01 Understanding Your Risk for Falls [...] www.cdc.gov Community-Based Fall Prevention Programs: www.cdc.gov National Snook on Aging: www.erich.nih.gov Contact a health care [...] provider. Document Revised: 05/23/2021 Document Reviewed: 05/23/2021 [employer] Patient Education 2022 [employer]. 10/30/2023 15:36:56 Exercising to Lose Weight Exercising [...] your health care provider or diet and public health nutritionist (dietitian). This may include: ?Eating fewer [...] provider. Document Revised: 12/16/2021 Document Reviewed: 12/16/2021 [employer] Patient Education 2022 [employer]. 10/30/2023 15:36:55 DASH Eating Plan DASH Eating [...] Dairy Whole or 2% milk, cream, and otii-wyd-vmbk. Whole or full-fat cream cheese. Whole-fat or [...] more information National Heart, Lung, and Blood Snook: www.nhlbi.nih.gov [place] Heart Association: www.heart.org Academy of Nutrition and [...] provider. Document Revised: 09/22/2020 Document Reviewed: 09/22/2020 [employer] Patient Education 2022 [employer]. 10/30/2023 15:36:53 BMI for Adults BMI for [...] numbers. This can be done either in Vincentian ([place] or metric measurements. Note that charts and online BMI calculators are available to help you find your BMI quickly and easily without having to do these calculations yourself. To calculate your BMI in Vincentian ([place] measurements: 1.Measure your weight in pounds [...] Centers for Disease Control and Prevention: www.cdc.gov [place] Heart Association: www.heart.org National Heart, Lung, and Blood Snook: www.nhlbi.nih.gov Summary Body mass index (BMI) is a number that is calculated from a person's weight and height. BMI may help estimate how much of a person's weight is composed of fat. BMI can help identify thosewho may be at higher risk for certain medical problems. BMI can be measured using Vincentian measurements or metric measurements. BMI charts are used to identify whether you are underweight, normal weight, overweight, or obese. This information is not intended to replace advice given to you by your health care provider. Make sure you discuss any questions you have with your health care provider. Document Revised: 07/12/2020 Document Reviewed: 05/19/2020 [employer] Patient Education 2022 [employer]. [facility] 11-30-2023 [facility]Cardiovascular Medicine [facility] SUBJECTIVE No chief complaint on file. [...] 3 months (around 01/01/2024). Dario Vang APRN-[facility] NoteNew patient here to establish care. [...] depression. All other systems reviewed and are negative.[facility]-2023 Hospital Discharge instructions Patient Education 08/21/2023 15:21:56 Parotitis, Ggqu-qp-Iwno Parotitis Parotitis means that you have irritation [...] Follow these instructions at home: Medicines Take rcsb-oki-cguubyi and prescription medicines only as told by [...] saliva. Take good care of your mouth: ?[place] your teeth at least two times a [...] away. Call your local emergency services (911 int [place] Do not wait to see if [...] provider. Document Revised: 03/01/2022 Document Reviewed: 03/01/2022 [employer] Patient Education 2022 [employer]. 08/21/2023 15:21:53 Sinus Infection, Adult Sinus Infection, [...] saline washes). ?Medicines that treat allergies (antihistamines). ?Yzih-rqp-pgjgaut pain relievers. If caused by bacteria, your [...] at home: Medicines Take, use, or apply pzfd-bjc-bxqhxhe and prescription medicines only as told by [...] and water are not available, use hand distribution specialist. Do not smoke. Avoid being around people [...] provider. Document Revised: 09/24/2022 Document Reviewed: 09/24/2022 Elsevier Patient Education 2022 [employer]. [facility] Up [facility] 08/21/2023 13:44:38 With:Martha Hathaway CNP Address:Unknown When: Unknown [facility] 07-07-2022 NotePROCEDURE: XR FOOT [...] Electronically authenticated by: DENIA JOHNS Date: 2022-05-09 12:09[facility]06-16-2022 Hospital Discharge instructions Patient Education 04/18/2022 18:27:01 [...] knees and rising up. Do strength and jkdog-nv-yzxsth exercises only as told by your health care provider or physical therapist. General instructions Take vikh-btf-zikupvf and prescription medicines only as told by [...] 11/27/2005 Document Revised: 05/04/2019 Document Reviewed: 05/04/2019 [employer] Patient Education 2020 [employer]. 04/18/2022 18:26:03 Tobacco Use Disorder Tobacco Use [...] reduces withdrawal symptoms. NRT is available as: ?Vsja-ayl-melpijc gums, lozenges, and skin patches. ?Prescription mouth [...] recovery for many people. General instructions Take ykzc-mhu-lyclafs and prescription medicines only as told by your health care provider. Check with your health care provider before taking any new prescription or dspr-cpt-miquipd medicines. Decide on a friend, family member, or smoking quit-line (such as 1-559-EKEB-NOW in the [place] that you can call [...] 06/25/2005 Document Revised: 10/07/2018 Document Reviewed: 10/07/2018 [employer] Patient Education 2020 [employer]. 04/18/2022 18:25:59 BMI for Adults BMI for [...] height. This can be done either in Vincentian ([place] or metric measurements. Note that charts are available to help you find your BMI quickly and easily without having to do these calculations yourself. To calculate your BMI in Vincentian ([place] measurements, your health care provider will: [...] medical problems. BMI can be measured using Vincentian measurements or metric measurements. To interpret your [...] 07/01/2005 Document Revised: 10/02/2018 Document Reviewed: 09/02/2018 [employer] Patient Education 2020 [employer]. 04/18/2022 18:25:57 Vitamin D Deficiency Vitamin D [...] 01/11/2013 Document Revised: 06/28/2019 Document Reviewed: 06/28/2019 [employer] Patient Education 2020 [employer]. 04/18/2022 18:25:50 Managing Anxiety, Adult Managing Anxiety, [...] care provider. Avoid caffeine, alcohol, and certain cwym-iwq-ptgzpay cold medicines. These may make you feel worse. Ask your pharmacist which medicines to avoid. General instructions Take whdc-wfk-hpflaoz and prescription medicines only as told by [...] Depression Association of [place]ate (ADAA): www.adaa.org National [place] on Mental Illness (ANTHONY): www.anthony.org Contact a [...] 10/14/2017 Document Revised: 03/21/2020 Document Reviewed: 03/21/2020 [employer] Patient Education 2020 [employer]. 04/18/2022 18:25:47 Major Depressive Disorder, Adult Major [...] your health care provider. General instructions Take nttf-vrm-tmcsoli and prescription medicines only as told by [...] important. Where to find more information National [place] on Mental Illness www.anthony.org [place]. National Snook of Mental Health www.[facility].nih.gov National Suicide Prevention Lifeline 9-976-655-TALK (7941). This is free, 24-hour help. Contact a [...] 02/14/2014 Document Revised: 10/02/2018 Document Reviewed: 04/30/2017 [employer] Patient Education 2020 [employer]. 04/18/2022 18:25:41 Dyslipidemia Dyslipidemia Dyslipidemia is an [...] quitting, ask your health care provider. Take yzld-duw-nunbolu and prescription medicines only as told by [...] 10/25/2014 Document Revised: 06/14/2019 Document Reviewed: 05/21/2019 [employer] Patient Education 2020 [employer]. 04/18/2022 18:25:39 DASH Eating Plan DASH Eating [...] your health care provider or diet and public health nutritionist (dietitian) to adjust your eating plan [...] each week. ?Heart-healthy fats. Healthy fats called Flowood-3 fatty acids are found in foods such [...] Dairy Whole or 2% milk, cream, and vivp-hvc-ruuz. Whole or full-fat cream cheese. Whole-fat or [...] more information: National Heart, Lung, and Blood Snook: www.nhlbi.nih.gov [place] Heart Association: www.heart.org Summary The DASH eating [...] your health care provider or diet and public health nutritionist (dietitian) to adjust your eating plan to your individual calorie needs. This information is not intended to replace advice given to you by your health care provider. Make sure you discuss any questions you have with your health care provider. Document Released: 10/08/2012 Document Revised: 10/02/2018 Document Reviewed: 10/13/2017 [employer] Patient Education 2020 [employer]. Follow Up Care 04/17/2022 13:33:25 With:Martha Hathaway CNP Address: When:6 months [facility] 06-16-2022 Evaluation + Plan note Future Scheduled Tests Laboratory* Vitamin D 25 Hydroxy 04/18/22 [facility] [place] Evaluation + Plan note Future Appointments Appointment Date:09/06/2022 01:00:00 PM Scheduled Provider: Location:[facility] Appointment Type:FM Medicare Wellness Subsequent Future Scheduled Tests Radiology* BD Bone Density DEXA 10/03/21 * MA Mamm Screen w/CAD if perf and 3D Jai [facility] Appointment Date:05/01/2022 02:20:00 PM Scheduled Provider:Leopoldo Sanchez DO Location:[facility] Appointment Type: Open Appointment Date:09/06/2022 01:00:00 PM Scheduled Provider: Location:[facility] Appointment Type: Medicare Wellness Subsequent Future Scheduled Tests Laboratory* Vitamin D 25 Hydroxy 04/18/22 Radiology* BD Bone Density DEXA 10/03/21 * MA Mamm Screen w/CAD if perf and 3D Jai 10/03/21 [facility] Evaluation + Plan note Future Appointments Appointment Date:09/17/2023 01:00:00 PM Scheduled Provider: Location:[facility] Appointment Type:FM Medicare Wellness Subsequent [facility] Evaluation + Plan note Future Appointments Appointment Date:11/10/2023 01:15:00 PM [facility]uled [facility] Type:OT Eval (FT) Appointment Date:12/10/2023 04:00:00 PM Scheduled Provider:Beatrice Ingram Location:[facility] Appointment Type: New Patient - Adult Appointment Date:07/13/2024 02:30:00 PM Scheduled Provider: Location:[facility] Appointment Type: Medicare Wellness Subsequent [facility] Evaluation + Plan note Future Appointments Appointment Date:01/21/2024 01:40:00 PM Scheduled Provider:Beatrice Ingram Location:[facility] Appointment Type: Open Appointment Date:07/13/2024 02:30:00 PM Scheduled Provider: Location:[facility] Appointment Type:FM Medicare Wellness Subsequent Future [...] w/CAD if perf and 3D Jai [facility]10[facility]23 [facility] App[facility]ments Appointment Date:04/19/2024 03:00:00 PM Scheduled Provider:Beatrice Ingram Location:[facility] Appointment Type: Open Appointment Date:07/13/2024 02:30:00 PM Scheduled Provider: Location:[facility] Appointment Type:FM Medicare Wellness Subsequent Future [...] w/CAD if perf and 3D Jai 12/10/23 [facility] Evaluation + Plan note Future Appointments Appointment Date:04/19/2024 02:40:00 PM Scheduled Provider:Beatrice Ingram Location:[facility] Appointment Type: Open Appointment Date:07/13/2024 02:30:00 PM Scheduled Provider: Location:[facility] Appointment Type:FM Medicare Wellness Subsequent Diagnostic Tests Pending * Urine Culture 04/02/24 Future Scheduled Tests Radiology* MA Mamm Screen w/CAD if perf and 3D Jai 12[facility]10/23 [facility] App[facility]ments Appointment Date:07/12/2024 02:00:00 PM Scheduled Provider:Antonio FUENTES MD [facility] Appointment Type:URO New Patient Appointment Date:07/13/2024 02:30:00 PM Scheduled Provider: Location:[facility] Appointment Type:FM Medicare Wellness Subsequent Appointment Date:07/15/2024 02:00:00 PM Scheduled Provider:Beatrice Ingram Location:[facility] Appointment Type:FM Open Future Scheduled Tests Laboratory* Basic Metabolic Panel 04/14/24 Radiology* MA Mamm Screen w/CAD if perf and 3D Jai 12/10/23 [facility] Evaluation + Plan note Future Appointments Appointment Date:04/27/2024 02:20:00 PM Scheduled Provider:Aakash Levy MD Location:[facility] Appointment Type:GS New 30 Appointment Date:07/12/2024 02:00:00 PM Scheduled Provider:Antonio FUENTES MD Location:[facility] Appointment Type:URO New Patient Appointment Date:07/13/2024 02:30:00 PM Scheduled Provider: Location:[facility] Appointment Type: Medicare Wellness Subsequent Appointment Date:07/15/2024 02:00:00 PM Scheduled Provider:Beatrice Ingram Location:[facility] Appointment Type:FM Open Future Scheduled Tests Laboratory* Basic Metabolic Panel 04/14/24 Radiology* MA Mamm Screen w/CAD if perf and 3D Jai 12[facility]10/23 [facility] App[facility]ments Appointment Date:05/21/2024 10:00:00 AM Scheduled Provider: Location[facility] Appointment Type:Surgery CALL PAT FT Appointment Date:05/26/2024 08:00:00 AM Scheduled Provider: Location:[facility] Appointment Type:Surgery FT Appointment Date:06/04/2024 08:20:00 AM Scheduled Provider:Aakash Levy MD Location:[facility] Appointment Type:GS Post Op 15 Appointment Date:07/12/2024 02:00:00 PM Scheduled Provider:Antonio FUENTES MD [facility] [place] Appointment Type:URO New Patient Appointment Date:07/13/2024 02:30:00 PM Scheduled Provider: Location:[facility] Appointment Type:FM Medicare Wellness Subsequent Appointment Date:07/15/2024 02:00:00 PM Scheduled Provider:Beatrice Ingram Location:[facility] Appointment Type: Open Future Scheduled Tests Laboratory* Basic Metabolic Panel 04/14/24 Radiology* MA Mamm Screen w/CAD if perf and 3D Jai 12/10/23 [facility] evaluation + Plan note Future Appointments Appointment Date:07/13/2024 02:30:00 PM Scheduled Provider: Location:[facility] Appointment Type: Medicare Wellness Subsequent Appointment Date:07/15/2024 02:00:00 PM Scheduled Provider:Beatrice Ingram Location:[facility] Appointment Type:FM Open Appointment Date:08/19/2024 08:30:00 AM Scheduled Provider:Lucinda Jin MD Location:[facility] Appointment Type:URO New Patient Future Scheduled Tests Laboratory* Basic Metabolic Panel 04/14/24 Radiology* MA Mamm Screen w/CAD if perf and 3D Jai 12/10/23 [facility] Evaluation + Plan note Future Appointments Appointment Date:08/19/2024 08:30:00 AM Scheduled Provider:Lucinda Jin MD Location:[facility] Appointment Type:URO New Patient Future Scheduled Tests Laboratory* Basic Metabolic Panel 04/14/24 Radiology* MA Mamm Screen w/CAD if perf and 3D Jai 12/10/23 [facility] Hospital course Narrative No data available for this section [facility] No data available for this section [facility] No data available for this section [facility] Summary Purpose Family History [...] section and content) DATE CREATED AUTHOR 04/29/2018 [facility] DATE CREATED AUTHOR AUTHOR'S ORGANIZ ATION 05/12/2022 [facility] DATE CREATED AUTHOR AUTHOR'S ORGANIZ ATION 10/06/2023 Nadiya herrera DATE CREATED AUTHOR AUTHOR'S ORGANIZ ATION 04/03/2024 [facility] DATE CREATED AUTHOR AUTHOR'S ORGANIZ ATION 04/04/2024 [facility] DATE CREATED AUTHOR AUTHOR'S ORGANIZ ATION 06/07/2024 [facility] DATE CREATED AUTHOR AUTHOR'S ORGANIZ ATION 06/10/2024 [facility] DATE CREATED AUTHOR AUTHOR'S ORGANIZ ATION 07/01/2024 [facility] DATE CREATED AUTHOR AUTHOR'S ORGANIZ ATION 07/13/2024 [facility] DATE CREATED AUTHOR AUTHOR'S ORGANIZ ATION 08/24/2024 [facility] Care Team (unrecognized sect ion and content) Personnel Name: Martha Hathaway CNP Address: [address] [place] [address], [place] [address] [place] Name: Nia Wolff Personnel Name: Martha Hathaway CNP Address: Address: [address] [place] [address] Suite [place] [address] [place] Name: Nia Wolff Personnel Name: Martha Hathaway CNP Address: Address: [address] [place] [address] [place] Name: Nia Wolff Personnel Name: Miguel Atkins MD Address: Address: [address] [place] [address] Name: Nia Wolff Personnel Name: Beatrice Ingram Address: Address: [address] [place] [address], [facility] [address]- Name: Nia Wolff Personnel Name: Beatrice Ingram Address: Address: [address] [place] [address] [place] [address]- Name: Nia Wolff Personnel Name: Beatrice Ingram Address: Address: [address] [place] [address], [facility] [address]- Name: Nia Wolff Personnel Name: Beatrice Ingram Address: Address: [address] [place] [address], [facility] A [address] [address]- Name: Nia Wolff Personnel Name: Beatrice Ingram Address: Address: [address] [place], [place] [address]ct [facility] A [address] [address]- Name: Nia Wolff Personnel Name: Beatrice Ingram Address: Address: [address] [place], [place] [address] [facility] [place] [id number]- Name: Nia Wolff Personnel Name: Cameron SUGGS Beatrice L Address: Address: [address] [place] [address] [address]- Name: Nia Wolff Personnel Name: Cameron SUGGS Beatrice J Carlos Address: Address: [address] [place] [address] [address]- Name: Nia Wolff Personnel Name: Cameron SUGGS Beatrice L Address: Address: [address] [place] [address], [facility] A [address] [address]- Name: Nia Wolff Personnel Name: Beatrice Ingram Address: Address: [address] [place] [address] [address]- Name: Nia Wolff Personnel Name: Beatrice Ingram Address: Address: [address] [place] [address] [address]- Name: Nia Wolff Personnel Name: Cameron SUGGS Beatrice L Address: Address: [address] [place] [address] [address]- Name: Nia Wolff Personnel Name: Cameron SUGGS Beatrice L Address: Address: [address] [place] [address]- Name: Nia Wolff FOR RECORDS PERTAINING TO [...] BE BASED ON THE PRIMARY CLINICAL RECORDS. [facility] [employer] [facility]. provides no warranty or guarantee of the accuracy or completeness of information in this document.
[2024-08-26 06:30] LABS: Basophils Absolute Auto 0.1 10^3/uL (0.0-0.1); Basophils Percent Auto 0.7 % (0.2-2.0); Eosinophils Absolute Auto 0.4 10^3/uL (0.0-0.7); Eosinophils Percent Auto 4.1 % (0.9-7.0); Hematocrit 46.5 % (36.0-48.0); Hemoglobin 15.4 g/dL (12.0-16.0); Immature Granulocytes Abs Auto 0.03 10^3/uL (0.00-0.03); Immature Granulocytes Pct Auto 0.3 % (0.0-0.5); Lymphocytes Absolute Auto 2.3 10^3/uL (1.2-3.8); Lymphocytes Percent Auto 21.5 % (20.5-60.0); Mean Corpuscular HGB Conc 33.1 g/dL (29.9-35.2); Mean Corpuscular Hemoglobin 31.4 pg (26.7-34.0); Mean Corpuscular Volume 94.9 fL (81.0-99.0); Monocytes Percent Auto 9.8 % (1.7-12.0); Neutrophils Absolute Auto 6.7 10^3/uL (1.4-6.5); Neutrophils Percent Auto 63.6 % (43.0-75.0); Platelet Count 284 10^3/uL (150-450); Red Cell Distribution Width 12.5 % (11.0-15.0); White Blood Count 10.5 10^3/uL (4.0-11.0)
[2024-08-26 07:04] LABS: Glucometer 127 mg/dL (74-106)
[2024-08-26] MEDS: 0.9 % SODIUM CHLORIDE 500 ML 50 ML IV ×2 (07:37→09:10)
[2024-08-26] MEDS: VANCOMYCIN HCL 1,250 MG in 0.9 % SODIUM CHLORIDE 250 ML 166.667 MG IV (07:38)
--- NOTE | 2024-08-26 08:32 | PC.NURSE ---
0720- Final timeout completed. Patient placed on monitor and O2 at 2l/min via nc. 0721- Right leg prepped per Dr. Quinn. 0723- Right saphenous block landmarked and block initiated. 0726-Right saphenous block completed. Patient positioned on left hip. 0729-Right popliteal site landmarked per Dr. Quinn. 0730- Right popliteal block initiated. 0732. Popliteal block completed. Patient tolerated it well. See posted vital signs.
--- NOTE | 2024-08-26 10:29 | XR_ITS ---
The [address] [address] Patient Name: MELBA ZAPATA MRN: [id number] date: 1955 Sex: F [facility] Accession/Order Number: [id number] Exam Date: 08/26/2024 10:38 Report Date: 08/29/2024 08:34 At the request of: MIGUEL COLEMAN Procedure: XR foot RT min 3V PROCEDURE: XR foot RT min 3V HISTORY: hallux varus COMPARISON: XR foot right 07/28/2024 FINDINGS: BONES:Osseous fusion the first metatarsophalangeal joint via dorsal plate and screws. Single screw within head of second metatarsal. SOFT TISSUES:Images were obtained to cast material which limits evaluation. EFFUSION:None visible. OTHER: Negative. XR/XR foot RT min 3V IMPRESSION: 1. Surgical repair and fusion of first metatarsophalangeal joint with significantly improved alignment. Electronically authenticated by: DENIA JOHNS Date: 08/29/2024 08:34
[2024-08-26 10:31] LABS: Glucometer 121 mg/dL (74-106)
--- NOTE | 2024-08-26 11:24 | PM.ORONB ---
Brief Operative Note Date of procedure: 08/26/24 Pre-op diagnosis general: Right hallux varus, second and third hammertoe, extensor tendon contracture Post-op diagnosis: same as pre-op Procedure: Procedure performed: Right first metatarsal phalangeal joint fusion with extensor tendon lengthening, capsulotomy second metatarsal phalangeal joint and exostectomy third proximal inner phalangeal joint, application of short leg splint Indications for procedure: Patient is a 69-year-old female who underwent right bunionectomy and correction of second and third toes by Dr. Yepez in 2019. Unfortunately she has had recurrent contractures of the second and third toes and worse she developed hallux varus secondary to overcorrection. She has had significant difficulty with shoe wear and has daily pain which affects activities of daily living and recreation. She presents to me for second opinion and because she failed to respond to nonsurgical care with bracing and taping and OTC pain medicine we discussed the risks and benefits of surgical intervention and she ultimately decided to undergo the above procedures Intraoperative findings: Significant contracture of the extensor hallucis longus tendon with mild to moderate degenerative changes of the first metatarsal phalangeal joint especially on its medial aspect. Severe varus and dorsiflexion contracture at the level of the MPJ with plantarflexion contracture of the proximal inner phalangeal joint. Mild contracture at the lateral second metatarsal phalangeal joint capsule. Callus and associated prominence of the lateral aspect of the third proximal inner phalangeal joint. Bone quality was within normal limits given patient's age and gender. Procedure in detail: Patient was identified in preoperative holding by myself which time correct side and site were marked and consent was obtained. Regional anesthesia was performed by the anesthesia team. Preoperative antibiotics were started and patient was brought back in the operating theater placed on table in supine position with a thigh tourniquet. The right lower extremity was prepped and draped in usual sterile fashion. Formal timeout was performed and the right lower extremity was exsanguinated and tourniquet was inflated. Incision created over dorsal aspect of the 1st MPJ. Bleeders coagulated. EHL was severely contracted causing deformity at the MPJ and PIPJ. The extensor tendon was released in a Z-type fashion then tagged for later repair.. Capsulotomy performed and McGlammry elevator inserted into 1st MPJ. Guide Pin place in 1st metatarsal head. Conical reamers used on 1st metatarsal head to remove cartilage and subchondral bone. Guide pin removed. Conical reamers used on proximal phalanx in a similar manner. 2.0 mm drill used to on each side of the joint. The site was irrigated. 1 cc of bone allograft was packed into the surgical site then was pinned with 2 guidewires in a rectus position. A 3.5 mm locking plate was placed over the fusion site and temporarily fixed. Then airline pilot flight instructor holes were drilled for locking 3.5 mm screws which were measured and placed according to the manufactor's standard directions. Again position was checked under fluoroscopy as well as on the table. Temporary fixation was removed and additional screws were placed. The guidewire from the medial aspect of the great toe was removed then redirected under fluoroscopic guidance. A 3.5 mm cannulated headed screw was inserted over this guidewire. All temporary fixation was then removed.. Again position was checked on the table and under fluoroscopy. The surgical site was irrigated with copious amounts of sterile saline. Incision over the second metatarsal phalangeal joint was performed and blunt dissection was taken down to the capsule of the joint. Then under fluoroscopy the lateral collateral ligament was released sharply noting release of the valgus contracture at the joint. Surgical site was irrigated. Then a 1.5 cm incision was placed over the dorsal aspect of the PIPJ of the third toe and blunt dissection was taken down to the lateral aspect of the joint. A hand rasp was used to remove the bony prominence and the surgical site was irrigated with copious saline. Incisions were then closed in layers and the tourniquet was deflated with a prompt hyperemic response A dry sterile dressing consisting of Xeroform on the incisions followed by 4 x 4 gauze, ABDs, and Kerlix were applied. Multiple layers of cast padding were then applied to ensure all bony prominences were well-padded. A plaster posterior splint was then applied which was held in place by Fabricio wraps. Capillary refill time to all digits was evaluated and had appropriate response. Postoperative plan: Discharge home under sister's care Nonweightbearing but patient may place partial weight to the heel for balance Keep splint clean dry and intact Prescriptions were sent to patient's pharmacy using my office EMR Follow-up in 1 week Implants: [employer] Anesthesia: regional and General-LMA Surgeon: Dick Tenorio Estimated blood loss (mL): 10 Pathology: none sent Condition: stable Disposition: PACU
== END 2024-08-26 12:00 | disposition home or self-care (01) ==
PROVIDERS: Anesthesiology; Visit Provider Podiatrist Foot & Ankle Surgery
PROC: (CPT 28124; principal; 2024-08-26 07:30)
DX: M20.31 Hallux varus (acquired), right foot (principal); M20.41 Other hammer toe(s) (acquired), right foot; M62.471 Contracture of muscle, right ankle and foot; Z90.49 Acquired absence of other specified parts of digestive tract; F17.210 Nicotine dependence, cigarettes, uncomplicated; J44.9 Chronic obstructive pulmonary disease, unspecified; Z95.0 Presence of cardiac pacemaker; K21.9 Gastro-esophageal reflux disease without esophagitis
CPT/HCPCS: 28124; 28272; 28750; 36415; 64445; 64450; 73630; 76000; 76942; 82948; 85025; C1713; J0131; J1100; J2250; J2371; J2405; J2704; J2795; J3010; J3370

== ENCOUNTER 2024-09-08 12:34 | Outpatient (OUT) | payer MEDICARE, SELFPAY ==
[2024-09-08 13:42] LABS: Bilirubin Urine NEGATIVE (NEGATIVE); Blood Urine TRACE-I (NEGATIVE); Clarity Urine CLEAR (CLEAR); Color Urine LT. YELLOW (YELLOW); Glucose Urine UA NEGATIVE (NEGATIVE); Ketones Urine TRACE mg/dL (NEGATIVE); Leukocyte Esterase Urine MODERATE (NEGATIVE); Nitrite Urine NEGATIVE (NEGATIVE); Protein Urine 30 mg/dL (NEG/TRACE); Specific Gravity Urine 1.015 (1.005-1.025); Urine Microscopic Indicated YES; pH Urine 6.5 (5.0-9.0)
[2024-09-08 13:52] LABS: Calcium Oxalate Crystals Urine MODERATE; Cast Seen? NONE SEEN #/LPF (NONE SEEN); Crystals Seen? Seen #/HPF (None Seen); Mucus Urine TRACE (NONE SEEN); RBC Urine 0-2 #/HPF (0-2); Squamous Epithelial Cell Urine MODERATE #/LPF (NONE/RARE)
[2024-09-08 13:53] LABS: Bacteria Urine TRACE #/HPF (NONE SEEN); Urine Culture Indicated YES
== END 2024-09-08 12:35 | disposition home or self-care (01) ==
LOC: PST 12:34
PROVIDERS: Visit Provider Urology
DX: Z01.812 Encounter for preprocedural laboratory examination (principal); N20.0 Calculus of kidney
CPT/HCPCS: 81001; 87086

== ENCOUNTER 2024-09-15 12:37 | Day surgery (SDC) | payer MEDICARE, SELFPAY ==
[2024-09-08 13:03] VITALS: BP 120/78; PULSE 97; TEMP 36.5; O2SAT 98; BMI 38.9
[2024-09-15] VITALS (12 sets, daily range): BP systolic 97–146; BP diastolic 80–101; PULSE 60–79; TEMP 36.1–36.4; O2SAT 91–96; BMI 38.5
--- OUTSIDE RECORDS SUMMARY | 2024-09-15 12:52 | XMS_ITS | CCD ---
Author Organization [facility] Care Team Providers Care Direct Care Staffer Name Role Phone RUBENS SWARTZ Unavailable Unavailable [...] Desouza Referring Unavailable Beatrice Barnes Referring Unavailable Cameron, Beatrice L Admitting Unavailable Cameron, Beatrice L Attending Unavailable Som Willis Attending Unavailable Rai Gordillo Attending Unavailable Wilbert, Miguel Attending Unavailable Caprice Barneszabeth L Attending Unavailable Terrellmella, Miguel Attending Unavailable Cameron, Beatrice L Attending Unavailable Cameron, Beatrice L Attending Unavailable Cameron, Beatrice L Attending Unavailable Wilbert, Miguel Attending Unavailable Lucinda Jin Admitting Unavailable Lucinda Jin Attending Unavailable Lucinda Jin Attending Unavailable Lucinda Jin Attending Unavailable Lucinda Jin Admitting Unavailable Lucinda Jin Attending Unavailable Lucinda Jin Referring Unavailable Allergies Allergy Classification Reported Allergen(s) Allergy Type Date of Onset Reaction(s) Facility Cont[facility] Media (1 source) Contrast media Substance Allergy Swelling (finding) [facility] Penicillins (antibiotic) (1 source) Penicillins; Translations: [penicillins] Drug Allergy H/O: blackout (context-depend ent category) [facility] (20 sources) Contrast media; Translations: [CONTRAST DYE] Propensity to adverse reactions to drug (disorder) 7 Swelling (finding) [facility] (20 sources) Penicillins; Translations: [PENICILLINS] Propensity to adverse reactions to drug (disorder) 7 H/O: blackout (context-depend ent category) [facility] (20 sources) adhesives; Translations: [adhesives] Allergy to substance redness [facility] (1 source) Iodine (And Iodine Containting Drugs) Drug allergy (disorder) 6 [facility] (1 source) Latex; Translations: [LATEX] Propensity to adverse reactions to drug (disorder) 4 [facility] (1 source) IODINATED CONTRAST MEDIA; Translations: [IODINATED CONTRAST MEDIA] Propensity to adverse reactions to drug (disorder) 7 [facility] Repository Medications Current Medications Medication Drug Class(es) Dates Sig (Normalized) Sig (Original) acetaminophen 325 mg / HYDROcodone bitartrate 5 mg oral tablet (2 sources) Opioid Agonist Start: 05-26-2024 End: 05-28-2024 [place] 325 mg-5 mg oral tablet 1 tab(s), Oral, q6hr as needed for pain, 10 tab(s), Refill(s) 0, [facility], 166, cm, 05/26/24 6:21:00 EDT, Height/Length Dosing, 104.7, kg, 05/26/24 6:21:00 EDT, Weight Dosing Start Date: 05/26/24 Stop Date: 05/28/24 Status: Ordered Albuterol (Eqv-ProAir HFA) 90 mcg/inh inhalation aerosol (9 sources) Start: 04-14-2024 take 2 puff(s) by inhalation every six hours Albuterol (Eqv-ProAir HFA) 90 mcg/inh inhalation aerosol 2 puff(s), Inhalation, q6hr, 18 gm, Refill(s) 6, [facility], 162.2, cm, 04/14/24 14:03:00 EDT, Height/Length Dosing, 104.9, kg, 04/14/24 14:03:00 EDT, Weight Dosing Start Date: 04/14/24 Status: Ordered amLODIPine 5 mg oral tablet (1 source) Dihydropyridine Calcium Channel Cyrus Start: 05-17-2020 take 1 tablet by mouth once daily Norvasc 5 mg Tab 5 mg = 1 tab(s), Oral, Daily, # 90 cap(s), Refills(s) 3, Pharmacy: [facility], 170.1, cm, 12/28/19 11:34:00 EST, Height/Length Measured, 106, kg, 10/06/19 11:07:00 EST, Weight Measured Start Date: 05/17/20 Status: Ordered 12 hr buPROPion hydrochloride 150 mg extended release oral tablet (13 sources) Aminoketone Start: 03-19-2024 take 1 tablet by mouth twice daily Wellbutrin SR 150 mg Tab-ER 150 mg = 1 tab(s), Oral, BID, # 180 tab(s), Refills(s) 0, Pharmacy: [facility], 162.2, cm, 03/19/24 15:05:00 EDT, Height/Length Dosing, 103.9, kg, 03/19/24 15:05:00 EDT, Weight Dosing Start Date: 03/19/24 Status: Ordered Start: 12-10-2023 take 1 tablet by poncho twice daily Wellbutrin SR 150 mg Tab-ER 150 mg = 1 tab(s), Oral, BID, # 180 tab(s), Refills(s) 0, Pharmacy: [facility], 162.2, cm, 12/10/23 16:44:00 EST, Height/Length Dosing, 100.6, kg, 12/10/23 16:44:00 EST, Weight Dosing Start Date: 12/10/23 Status: Ordered cholecalciferol 1.25 mg oral capsule (10 sources) Vitamin D Start: 04-14-2024 cholecalcifero l 50,000 intl units oral capsule 1,250 mcg = 1 cap(s), Oral, q7day, # 12 cap(s), Refills(s) 0, Pharmacy: [facility], 162.2, cm, 04/14/24 14:03:00 EDT, Height/Length Dosing, 104.9, kg, 04/14/24 14:03:00 EDT, Weight Dosing Start Date: 04/14/24 Status: Ordered Start: 04-18-2022 End: 08-16-2022 take 1 capsule by mouth once daily at mealtime cholecalciferol 2000 intl units oral capsule 50 mcg = 1 cap(s), Oral, Daily, with food., X 60 day(s), # 90 cap(s), Refills(s) 1, Pharmacy: [facility], 163.8, cm, 04/18/22 15:45:00 EDT, Height/Length [...] day(s), # 14 cap(s), Refills(s) 0, Pharmacy: [facility], 167, cm, 08/21/23 14:00:00 EDT, Height/Length [...] Daily, # 90 cap(s), Refills(s) 0, Pharmacy: [facility], 166, cm, 08/19/24 8:53:00 EDT, Height/Length Dosing, 108, kg, 08/19/24 8:53:00 EDT, Weight Dosing Start Date: 08/20/24 Status: Ordered Start: 12-10-2023 take 1 capsule by [facility] once daily duloxetine 60 mg oral delayed release capsule 60 mg = 1 cap(s), Oral, Daily, # 90 cap(s), Refills(s) 0, Pharmacy: [facility], 162.2, cm, 12/10/23 16:44:00 EST, Height/Length Dosing, 100.6, kg, 12/10/23 16:44:00 EST, Weight Dosing Start Date: 12/10/23 Status: Ordered Start: 08-12-2023 take 1 capsule by [facility] once daily duloxetine 60 mg oral delayed release capsule 60 mg = 1 cap(s), Oral, Daily, # 90 cap(s), Refills(s) 0, Pharmacy: [facility], 163, cm, 10/21/22 13:43:00 EST, Height/Length Dosing, 98.4, kg, 10/21/22 13:43:00 EST, Weight Dosing Start Date: 08/12/23 Status: Ordered Start: 04-18-2022 take 1 capsule by [facility] once daily DULoxetine 60 mg Cap-EC 60 mg = 1 cap(s), Oral, Daily, # 90 cap(s), Refills(s) 3, Pharmacy: [facility], 163.8, cm, 04/18/22 15:45:00 EDT, Height/Length Dosing, 93.7, kg, 04/18/22 15:45:00 EDT, Weight Dosing Start Date: 04/18/22 Status: Ordered Start: 05-18-2020 take 1 capsule by [facility] once daily DULoxetine 40 mg oral delayed release capsule 40 mg, Oral, Daily, # 90 cap(s), Refills(s) 1, Pharmacy: [facility], 170.1, cm, 05/18/20 17:03:00 EDT, Height/Length Measured, 112.3, kg, 05/18/20 17:35:00 EDT, Weight Measured Start Date: 05/18/20 Status: Ordered DULoxetine 60 mg Cap-EC (2 sources) Start: 05-02-2022 take 1 capsule by mouth once daily DULoxetine 60 mg Cap-EC 60 mg = 1 cap(s), Oral, Daily, # 90 cap(s), Refills(s) 3, Pharmacy: [facility]/pharmacy #[id number], 163.8, cm, 04/18/22 15:45:00 EDT, Height/Length Dosing, 93.7, kg, 04/18/22 15:45:00 EDT, Weight Dosing Start Date: 05/02/22 Status: Ordered Start: 08-30-2021 take 1 capsule by [facility] once daily DULoxetine 60 mg Cap-EC 60 mg = 1 cap(s), Oral, Daily, # 30 cap(s), Refills(s) 6, Pharmacy: [facility], 170, cm, 08/30/21 14:36:00 EDT, Height/Length Dosing, 89.2, kg, 08/30/21 14:36:00 EDT, Weight Dosing Start Date: 08/30/21 Status: Ordered fluticasone propionate 0.05 mg/actuat metered dose nasal spray (2 sources) Corticosteroid Start: 10-21-2022 take 1 spray(s) nasal route twice daily Flonase 0.05 mg/inh [place] 1 spray(s), Nasal, BID, 16 gram, Refill(s) 0, each nostril, [facility], 163, cm, 10/21/22 13:43:00 EST, Height/Length Dosing, 98.4, kg, 10/21/22 13:43:00 EST, Weight Dosing Start Date: 10/21/22 Status: Ordered Start: 10-26-2020 fluticasone 0. 05 mg/inh Nasal [place] 2 spray(s), Nasal, Daily Congestion, 16 gram, Refill(s) 1, each nostril, [facility], 170, cm, 10/26/20 7:12:00 EST, Height/Length Dosing, 102, kg, 10/26/20 7:12:00 EST, Weight Dosing Start Date: 10/26/20 Status: Ordered fluticasone 0.05 mg/inh Nasal [place] (1 source) Start: 10-26-2020 fluticasone 0. 05 mg/inh Nasal [place] 2 spray(s), Nasal, Daily Congestion, 16 gram, Refill(s) 1, each nostril, [facility], 170, cm, 10/26/20 7:12:00 EST, Height/Length Dosing, 102, kg, 10/26/20 7:12:00 EST, Weight Dosing Start Date: 10/26/20 Status: Ordered hydroCHLOROthiazide 25 mg / lisinopril 20 mg oral tablet (11 sources) Thiazide Diuretic, Angiotensin Converting Enzyme Inhibitor Start: 04-14-2024 hydrochlorothiazide- lisinopril 25 mg-20 mg Tab 1 tab(s), Oral, Daily, 90 tab(s), Refill(s) 0, [facility], 162.2, cm, 04/14/24 14:03:00 EDT, Height/Length Dosing, 104.9, kg, 04/14/24 14:03:00 EDT, Weight Dosing Start Date: 04/14/24 Status: Ordered Start: 03-19-2024 hydrochlorothi azide-lisinopril 12.5 mg-10 mg Tab 1 tab(s), Oral, Daily, 90 tab(s), Refill(s) 0, [facility], 162.2, cm, 03/19/24 15:05:00 EDT, Height/Length Dosing, 103.9, kg, 03/19/24 15:05:00 EDT, Weight Dosing Start Date: 03/19/24 Status: Ordered Incruse Ellipta 62.5 mcg inhalation powder (2 sources) Start: 04-16-2024 Incruse Ellipta 62.5 mcg inhalation powder = 1 inh, Inhalation, q24hr, # 30 blister(s), Refills(s) 2, Pharmacy: [facility], 162.2, cm, 04/14/24 14:03:00 EDT, Height/Length Dosing, 104.9, kg, 04/14/24 14:03:00 EDT, Weight Dosing Start Date: 04/16/24 Status: Ordered Mucinex DM 30 mg-600 mg Tab-ER (1 source) Start: 10-21-2022 End: 10-24-2022 Mucinex DM 30 mg-600 mg Tab-ER 1 tab(s), Oral, q12hr Congestion for 3 day(s), 6 tab(s), Refill(s) 0, [facility], 163, cm, 10/21/22 13:43:00 EST, Height/Length Dosing, 98.4, kg, 10/21/22 13:43:00 EST, Weight Dosing Start Date: 10/21/22 Stop Date: 10/24/22 Status: Ordered 24 hr nicotine 0.292 mg/hr transdermal system (11 sources) Cholinergic Nicotinic Agonist Start: 03-19-2024 nicotine 7 mg/24 hr Transderm ER Film 1 patch(es), Topical, Daily, 30 EA, Refill(s) 1, [facility], 162.2, cm, 03/19/24 15:05:00 EDT, Height/Length Dosing, 103.9, kg, 03/19/24 15:05:00 EDT, Weight Dosing Start Date: 03/19/24 Status: Ordered ondansetron 4 mg oral tablet (13 sources) Serotonin-3 Receptor Antagonist Start: 12-10-2023 take 1 tablet by mouth every eight hours as needed for nausea Zofran 4 mg Tab 4 mg = 1 tab(s), Oral, q8hr, PRN Nausea/Vomiting, # 12 tab(s), Refills(s) 0, Pharmacy: [facility], 162.2, cm, 12/10/23 16:44:00 EST, Height/Length [...] Daily, # 30 cap(s), Refills(s) 0, Pharmacy: [facility], 162.2, cm, 04/14/24 14:03:00 EDT, Height/Length Dosing, 104.9, kg, 04/14/24 14:03:00 EDT, Weight Dosing Start Date: 04/14/24 Status: Ordered Completed/Discontinued Medications Medication Drug Class(es) Dates Sig (Normalized) Sig (Original) Blood pressure cuff (3 sources) Start: 08-30-2021 Blood pressure cuff Blood pressure cuff, See Instructions, 1 EA, 0, Please dispense 1 blood pressure cuff., [facility], Supply, 170, cm, 08/30/21 14:36:00 EDT, [...] Name Value Interpretation Reference Range Facil ity CT Abdomen/Pelvis w/o Contra ston 08-24-2024 CT Abdomen/Pelvis w/o Contrast Exam Date/Time: 08/23/2024 08:20 EDT Reason for Exam: Kidney stones;Other (please specify) Report IMPRESSION: NO OBSTRUCTING URINARY TRACT CALCULI OR HYDRONEPHROSIS. BILATERAL NONOBSTRUCTING RENAL CALCULI. HEPATOMEGALY AND HEPATIC STEATOSIS. COLONIC DIVERTICULOSIS WITHOUT DIVERTICULITIS. EXAM: CT Abdomen/Pelvis w/o Contrast History: Kidney stones Technique: Multiple contiguous axial images were obtained of the abdomen and pelvis from the level of the lung bases through the ischial tuberosities without contrast. Multiplanar reformats were obtained. Unless otherwise stated, incidental findings identified in this report do not require routine follow-up imaging. Comparison: CT abdomen pelvis 08/30/2019 Findings: Lung bases are clear. Lack of intravenous contrast precludes optimal evaluation of the abdominal and pelvic viscera. The visualized portion of the spleen appears within normal limits. Hypoattenuation of the liver. The liver is enlarged measuring greater than 20 cm in craniocaudal length. The gallbladder is surgically absent. The unenhanced stomach, pancreas, and adrenal glands appear within normal limits. A few tiny nonobstructing calculi are identified within the inferior pole of the right kidney. A 3 mm nonobstructing calculus is identified within the superior pole of the left kidney, a 3 mm nonobstructing calculus is identified within the inferior pole of the left kidney, and a 9 mm nonobstructing calculus is identified within the inferior pole of the left kidney. No obstructing urinary tract calculi or hydronephrosis. The urinary bladder is nearly completely decompressed limiting its evaluation. No overt abnormality of the urinary bladder. The uterus is present. Abdominal aorta is nonaneurysmal. Mild atherosclerotic calcification of the abdominal aorta. No retroperitoneal or abdominal/pelvic lymphadenopathy. No small bowel obstruction. Colonic diverticuli are identified. No overt colonic Report mass or pericolonic inflammation. The appendix not visualized. No free fluid or free air. Degenerative changes of the lumbar spine. Postsurgical changes of left hip arthroplasty. No acute osseous abnormality. All CT scans at this facility use dose modulation, iterative reconstruction, and/or weight based dosing when appropriate to reduce radiation dose to as low as reasonably achievable. Ordering Provider: Lucinda Jin FINAL REPORT Dictated: 08/24/2024 10:23 am Leopoldo Estrada DO Signed (Electronic Signature): 08/24/2024 10:23 am Signed by: Leopoldo Estrada DO Transcribed by: PRIMO Technologist: ANDRIA Technical Comments Rectal Contrast Given? No Oral contrast amount in ml's: 0 Normal [facility] XR Abdomen 1 Viewon 08-20-20 XR Abdomen 1 View Exam Date/Time: 08/18/2024 [...] PRIMO Technologist: HILDA Technical Comments Radiation Dose: Ka,r in mGy = na DAP = na Normal [facility] Ambulatory Visit Summaryon 1 Ambulatory Visit Summary Ambulatory Visit Summary MELBA ZAPATA :1955 Visit Date:08/19/2024 Ambulatory Visit Instructions Your Diagnosis Kidney stones History of UTI Your Care Team Attending Physician - Lucinda Jin MD Primary Care Physician - Beatrice Ingram This Is Your Medications List Contact prescribing [...] Follow Up with Davin CONSTANTINO, Lucinda Ortiz, URJ Carlos, URO When: Where: You Need to Complete the Following CT Abdomen/Pelvis w/o Contrast, 08/19/24, Routine, Order for future visit, Transport Mode: Ambulatory, Reason: Other (please specify), Reason: Kidney stones, No, Yes, Kidney stones, Stone protocol, pp_set_radiology_subspeci alty, Not Required, [facility] Medications What How Much When Why Instructions [...] Sinus congest (more content not included)... Normal [facility] Urology Office/Clinic Noteon 08-19-2024 Urology Office/Clinic Note Urology Office/Clinic Note Chief Complaint New Pt HPI Staff Prior Dr. Ibarra pt. Last seen 09/21/19, pt was to follow up in 6 months w/ KUB. Failed to follow up. Here to establish care for kidney stones. Abdominal US 04/02/24 [facility]. KUB done 08/18/24 Dysuria: no Incomplete bladder [...] with voice recognition artificial intelligence software, specifically Tagged, HAUL and or BigMachines. Substitutions may have occurred due to the [...] low urine citrate 224. Abdominal US 04/02/24 [facility] - A shadowing focus within the mid aspect of the left kidney measures approximately 1.3 cm and likely represents a nonobstructing calculus. No hydronephrosis. Pt called our office 04/07/24 stating that her primary care ordered imaging and kidney stones were mentioned. Pt subsequently scheduled an appt with our office. KUB 08/18/24 [facility] - report pending dictation. Upon personal review, [...] -Dietary modifications, (more content not included)... Normal [facility] Comment on above: Result Comment: Elec tronically Signed By: Lucinda Jin MD.br\Date and Time Signed: 08/19/24 12:38 EDT\.br\Electronically Co-Signed By: Michela Diaz.br\Date and Time Co-Signed: 08/19/24 09:25 EDT\.br\Electronically Co-Signed By: Michela Diaz\Date and Time Co-Signed: 08/19/24 09:27 EDT Office Visiton 06-29-2024 Follow-up visit [id number] Diana Zapata 1955 F Date Provider Department Center 06/29/2024 Gold-MIGUE PUENTES [facility] Family History Problem Relation Age of Onset Atrial fibrillation Mother Diabetes Mother Other Mother Transient ischemic attack Father Stroke Maternal Grandmother Family Status - Relation Status Age at Mother Father Maternal Grandmother Level of Service:75237 MD OFFICE/OUTPATIENT NEW MODERATE MDM 45 MINUTES Normal [facility] General Surgery Office/Clini c Noteon 06-08-2024 General Surgery Office/Clinic Note General Surgery Office/Clinic Note Chief Complaint s/p cholecystectomy HPI Staff Melba is a 69 y.o. female here for s/p cholecystectomy done 05/26/24 Patient presented to [facility] ER on 05/26/24 with failed heart monitor- complete heart block Patient is healing well. s/p pacemaker done 05/26/24 History of Present Illness Consent: The patient or their guardian verbally consented to allow [employer] to record this visit. Melba Zapata is a 69-year-old female status post robotic assisted laparoscopic cholecystectomy performed on 05/26/2024. The patient was found to be in heart block in the postoperative and was referred to the emergency department where she was subsequently transferred to [facility] for a pacemaker placement on 05/27/2024. The patient has been doing well. She reports no pain from the operation, and did not require any pain medication. However, she continues to experience soreness from the pacemaker insertion procedure conducted at [facility]. She is scheduled to consult with her laborer operator who placed the pacemaker in [place] this coming Friday. Review of Systems ROS [...] with voice recognition artificial intelligence software, specifically Tagged, HAUL and or BigMachines. Substitutions may have occurred due to the inherent limitations of voice recognition and artificial intelligence software. ATTESTATION: Documentation services were performed after patient or guardian consented to allow [employer] to record this visit. MICKY physician office specialist and provider reviewed before signing. MICKY: LENARD Burnett. Follow-up No qualifying data available Follow up as needed and to consult with her laborer operator as regularly scheduled. Problem List/Past Medical History [...] abuse Procedure/Surgic (more content not included)... Normal [facility] Comment on above: Result Comment: Elec tronically Signed By: Mildred CONSTANTINO, Aakash Briones\.br\Date and Time Signed: 06/08/24 08:54 EDT\.br\Electronically Co-Signed By: Hortencia Sterling\.br\Date and Time Co-Signed: 06/04/24 11:16 EDT Office Visiton 06-07-2024 Follow-up visit [id number] Diana Zapata 1955 F Date Provider Department Center 06/07/2024 [id number] Family History Problem Relation Age of Onset Atrial fibrillation Mother Diabetes Mother Other Mother Transient ischemic attack Father Stroke Maternal Grandmother Family Status - Relation Status Age at Mother Father Maternal Grandmother Level of Service:65926 MD OFFICE/OUTPATIENT ESTABLISHED SF MDM 10 MIN Normal [facility] Ambulatory Visit Summaryon 0 06-04-2024 Ambulatory Visit Summary Ambulatory Visit Summary MELBA ZAPATA :1955 Visit Date:06/04/2024 Ambulatory Visit Instructions Your Diagnosis Gall stones Your Care Team Attending Physician - Mildred CONSTANTINO, Aakash Briones Primary Care Physician - Beatrice Ingram This [...] CONSTANTINO, Antonio Srivastava Where: [facility] [address] [place] [address] [place] [address]- Friday 2:30 PM EDT With: Where: [facility] [address] [place] [address]- 2023 2:00 PM EDT With: Cameron SUGGS, Beatrice Valdez Where: [facility] [address], [place] [address]- Medications What How Much When Why Instructions [...] your care. (more content not included)... Normal [facility] 30on 05-29-2024 30 The patient is Moder [...] and maintained or improved Outcome: Progressing Normal [facility] BASIC METABOLIC PANELon 07- Anion gap [Moles/Vol] 11 mmol/L Normal 7- [facility] Comment on above: Performed By: #### L [id number] ####[facility] (AKER)[address] [place] [address] Calcium [Mass/Vol] 8.7 mg/dL Normal 8.6-10.3 [facility] Comment on above: Performed By: #### L [id number] ####[facility] (BEAKER)[address] [place] [address] Chloride [Moles/Vol] 106 mmol/L Normal 98-107 [facility] Comment on above: Performed By: #### L [id number] ####[facility] (BEAKER)[address] [place] [address] CO2 [Moles/Vol] 25 mmol/L Normal 21-31 [facility] Comment on above: Performed By: #### L [id number] ####[facility] (BEAKER)[address] [place] [address] Creatinine [Mass/Vol] 0.80 mg/dL Normal 0.60-1.20 [facility] Comment on above: Performed By: #### L [id number] ####[facility] ([facility])[address] [place] [address] GLOMERULAR FILTRATION RATE ML/MIN/1.73 SQ M.PREDICTED 79.7 mL/min/1.73m*2 Normal >60.0 [facility] Comment on above: Result Comment: [facility]???s estimated glomerular filtration rate (eGFR) will no [...] of individuals. Performed By: #### L [id number] ####[facility] ([facility])[address] [place] [address] Glucose [Mass/Vol] 126 mg/dL High 70-100 [facility] Comment on above: Performed By: #### L [id number] ####[facility] ([facility])[address] [place] [address] Potassium [Moles/Vol] 4.4 mmol/L Normal 3.5-5.1 [facility] Comment on above: Performed By: #### L [id number] ####[facility] ([facility])[address] [facility] [place] [address] Sodium [Moles/Vol] 138 mmol/L Normal 136-145 [facility] Comment on above: Performed By: #### L [id number] ####[facility] ([facility])[address] [facility] [place] [address] Urea nitrogen [Mass/Vol] 23 mg/dL Normal 7-25 [facility] Comment on above: Performed By: #### L [id number] ####[facility] ([facility] [place] [address] UREA NITROGEN/CREATININE (MASS RATIO) IN SER/PLAS 28.8 Normal [facility] Comment on above: Performed By: #### L [id number] ####[facility] ([facility])[address] [place] [address] CBC WITH AUTO DIFFERENTIALon 05-29-2024 Basophils (Bld) [#/Vol] 0.03 10*3/uL Normal 0.00-0.20 [facility] Comment on above: Performed By: #### L [id number] ####[facility] ([facility])[address] [place] [address] Basophils/100 WBC (Bld) 0.2 % Normal 0.0-1.0 [facility] Comment on above: Performed By: #### L [id number] ####[facility] ([facility])[address] [place] [address] Eosinophils (Bld) [#/Vol] 0.02 10*3/uL Normal 0.00-0.50 [facility] Comment on above: Performed By: #### L [id number] ####[facility] [facility] ([facility])[address] [place] [address] Eosinophils/100 WBC (Bld) 0.1 % Normal 0.0-6.0 [facility] Comment on above: Performed By: #### L [id number] ####[facility] ([facility])[address] [place] [address] Erythrocyte distribution width (RBC) [Ratio] 13.0 % Normal 11.5-15.0 [facility] Comment on above: Performed By: #### L [id number] ####[facility] ([facility])[address] [place] [address] ERYTHROCYTE MEAN CORPUSCULAR HEMOGLOBIN CONCENTRATION (G/DL) BY AUTOMATED 32.2 g/dL Normal 32.0-35.0 [facility] Comment on above: Performed By: #### L [id number] ####[facility] ([facility] [place] [address] Hematocrit (Bld) [Volume fraction] 42.6 % Normal 36.0-48.0 [facility] Comment on above: Performed By: #### L [id number] ####[facility] (BEAKER)[address] [place] [address] Hemoglobin (Bld) [Mass/Vol] 13.7 g/dL Normal 12.0-15.0 [facility] Comment on above: Performed By: #### L [id number] ####[facility] (BEAKER)[address] [place] [address] Immature granulocytes (Bld) [#/Vol] 0.09 10*3/uL Normal 0.00-0.20 [facility] Comment on above: Performed By: #### L [id number] ####[facility] (BEAKER)[address] [place] [address] Immature granulocytes/100 WBC (Bld) 0.6 % Normal 0.0-1.0 [facility] Comment on above: Performed By: #### L [id number] ####[facility] (BEAKER)[address] [place] [address] Lymphocytes (Bld) [#/Vol] 1.22 10*3/uL Normal 1.20-4.00 [facility] Comment on above: Performed By: #### L [id number] ####[facility] (BEAKER)[address] [place] [address] Lymphocytes/100 WBC (Bld) 8.6 % Low 20.0-45.0 [facility] Comment on above: Performed By: #### L [id number] ####[facility] (BEAKER)[address] [place] [address] MCH (RBC) [Entitic mass] 31.4 pg Normal 27.0-33.0 [facility] Comment on above: Performed By: #### L [id number] ####[facility] (BEAKER)[address] [place] [address] MCV (RBC) [Entitic vol] 97.5 fL Normal 82.0-98.0 [facility] Comment on above: Performed By: #### L [id number] ####[facility] ([facility] [place] [address] Monocytes (Bld) [#/Vol] 0.93 10*3/uL Normal 0.10-1.00 [facility] Comment on above: Performed By: #### L [id number] ####[facility] ([facility])[address] [place] [address] Monocytes/100 WBC (Bld) 6.6 % Normal 5.0-12.0 [facility] Comment on above: Performed By: #### L [id number] ####[facility] ([facility])[address] [place] [address] Neutrophils (Bld) [#/Vol] 11.82 10*3/uL High 1.60-7.60 [facility] Comment on above: Performed By: #### L [id number] ####[facility] ([facility])[address] [place] [address] Neutrophils/100 WBC (Bld) 83.9 % High 40.0-72.0 [facility] Comment on above: Performed By: #### L [id number] ####[facility] ([facility] [place] [address] NRBC (PER 100 WBCS) BY AUTOMATED COUNT 0.0 % Normal 0 [facility] Comment on above: Performed By: #### L [id number] ####[facility] ([facility] [place] [address] PLATELETS (10*3/UL) IN BLOOD AUTOMATED COUNT 262 10*3/uL Normal 150-400 [facility] Comment on above: Performed By: #### L [id number] ####[facility] (BEAKER)[address] [place] [address] RBC (Bld) [#/Vol] 4.37 10*6/uL Normal 3.80-5.00 [facility] Comment on above: Performed By: #### L [id number] ####[facility] (BEAKER)[address] [place] [address] WBC (Bld) [#/Vol] 14.11 10*3/uL High 4.00-10.60 [facility] Comment on above: Performed By: #### L [id number] ####[facility] (BEAKER)[address] [place] [address] DSon 05-29-2024 DS Admit Date 05/27/2024 Discharge [...] HYDROcodone-acetaminophen 5-325 mg tablet Commonly known as: [place] lisinopriL-hydrochlorothi azide 20-25 mg tablet nicotine 21 [...] an 69 y.o. female who came from [facility] with concerns for complete heart block. Patient reports this all started when she had broken her wrist, she had EKG done at that time which showed an abnormality leading her to have an echocardiogram done With our cardiology team in [place]. During her appointment to go over her [...] complete heart block and requested transfer to [facility] for evaluation by our electrophysiology service. [...] (*) Lymphocytes (more content not included)... Normal [facility] MAGNESIUMon 05-29-2024 Magnesium [Mass/Vol] 2.0 mg/dL Normal 1.9-2.7 [facility] Comment on above: Performed By: #### L [id number] #### [facility] (BEAKER) [address] [place] [address] PHOSPHORUSon 05-29-2024 Magnesium [Mass/Vol] 3.1 mg/dL Normal 2.5-5.0 [facility] Comment on above: Performed By: #### L [id number] #### [facility] (BEAKER) [address] [place] [address] 30on 05-28-2024 30 The patient is Moder [...] and behaviors that affect risk of falls Terral fall precautions as indicated by assessment Educate [...] and prevent overall improvement and discharge Normal [facility] BASIC METABOLIC PANELon 07-2 Anion gap [Moles/Vol] 11 mmol/L Normal 7-20 [facility] Comment on above: Performed By: #### L [id number] #### [facility] (BEAKER) [address] [place] [address] Calcium [Mass/Vol] 8.5 mg/dL Low 8.6-10.3 [facility] Comment on above: Performed By: #### L [id number] #### [facility] (BEAKER) [address] [place] [address] Chloride [Moles/Vol] 107 mmol/L Normal 98-107 [facility] Comment on above: Performed By: #### L [id number] #### [facility] (BEAKER) [address] [place] [address] CO2 [Moles/Vol] 23 mmol/L Normal 21-31 [facility] Comment on above: Performed By: #### L [id number] #### [facility] (BEAKER) [address] [place] [address] Creatinine [Mass/Vol] 0.83 mg/dL Normal 0.60-1.20 [facility] Comment on above: Performed By: #### L [id number] #### [facility] ([facility]) [address] [place] [address] GLOMERULAR FILTRATION RATE ML/MIN/1.73 SQ M.PREDICTED 76.3 mL/min/1.73m*2 Normal >60.0 [facility] Comment on above: Result Comment: The [facility]???s estimated glomerular filtration rate (eGFR) will no [...] individuals. Performed By: #### L [id number] #### [facility] ([facility]) [address] [place] [address] Glucose [Mass/Vol] 104 mg/dL High 70-100 [facility] Comment on above: Performed By: #### L [id number] #### [facility] ([facility]) [address] [place] [address] Potassium [Moles/Vol] 3.6 mmol/L Normal 3.5-5.1 [facility] Comment on above: Performed By: #### L [id number] #### [facility] ([facility]) [address] [place] [address] Sodium [Moles/Vol] 137 mmol/L Normal 136-145 [facility] Comment on above: Performed By: #### L [id number] #### [facility] ([facility]) [address] [place] [address] Urea nitrogen [Mass/Vol] 21 mg/dL Normal 7-25 [facility] Comment on above: Performed By: #### L [id number] #### [facility] ([facility]) [address] [place] [address] UREA NITROGEN/CREATININE (MASS RATIO) IN SER/PLAS 25.3 Normal [facility] Comment on above: Performed By: #### L [id number] #### [facility] ([facility] [address] [place] [address] CBCon 05-28-2024 Erythrocyte distribution width (RBC) [Ratio] 13.2 % Normal 11.5-15.0 [facility] Comment on above: Performed By: #### L [id number] #### [facility] ([facility]) [address] [place] [address] ERYTHROCYTE MEAN CORPUSCULAR HEMOGLOBIN CONCENTRATION (G/DL) BY AUTOMATED 31.7 g/dL Low 32.0-35.0 [facility] Comment on above: Performed By: #### L [id number] #### [facility] ([facility]) [address] [place] [address] Hematocrit (Bld) [Volume fraction] 43.2 % Normal 36.0-48.0 [facility] Comment on above: Performed By: #### L [id number] #### [facility] ([facility]) [address] [place] [address] Hemoglobin (Bld) [Mass/Vol] 13.7 g/dL Normal 12.0-15.0 [facility] Comment on above: Performed By: #### L [id number] #### [facility] ([facility]) [address] [place] [address] MCH (RBC) [Entitic mass] 30.8 pg Normal 27.0-33.0 [facility] Comment on above: Performed By: #### L [id number] #### [facility] ([facility]) [address] [place] [address] MCV (RBC) [Entitic vol] 97.1 fL Normal 82.0-98.0 [facility] Comment on above: Performed By: #### L [id number] #### [facility] ([facility] [address] [place] [address] PLATELETS (10*3/UL) IN BLOOD AUTOMATED COUNT 231 10*3/uL Normal 150-400 [facility] Comment on above: Performed By: #### L [id number] #### [facility] (BEAKER) [address] [place] [address] RBC (Bld) [#/Vol] 4.45 10*6/uL Normal 3.80-5.00 [facility] Comment on above: Performed By: #### L [id number] #### [facility] ([facility] [address] [place] [address] WBC (Bld) [#/Vol] 9.28 10*3/uL Normal 4.00-10.60 [facility] Comment on above: Performed By: #### L [id number] #### [facility] ([facility]) [address] [place] [address] Surgical Pathology Reporton 05-28-2024 Surgical Pathology Report [address] [address]- Surgical Pathology Report Collected Date/Time: 05/26/2024 08:23 [...] The mucosal surface is lloyd/pink and velvety. Surface Hydrologist sections are submitted in two cassettes: 1 - Cystic duct 2 - Sections of remainder of gallbladder (DC) DC:MCA Microscopic Description Microscopic examination performed unless gross only specified. Normal [facility] Comment on above: Performed By: #### [id number] #### [facility] [address] [place] [address] CBC WITH AUTO DIFFERENTIALon 05-27-2024 Basophils (Bld) [#/Vol] 0.05 10*3/uL Normal 0.00-0.20 [facility] Comment on above: Performed By: #### L [id number] #### [facility] ([facility] [address] [place] [address] Basophils/100 WBC (Bld) 0.4 % Normal 0.0-1.0 [facility] Comment on above: Performed By: #### L [id number] #### [facility] ([facility] [address] [place] [address] Eosinophils (Bld) [#/Vol] 0.33 10*3/uL Normal 0.00-0.50 [facility] Comment on above: Performed By: #### L [id number] #### [facility] ([facility] [address] [place] [address] Eosinophils/100 WBC (Bld) 2.8 % Normal 0.0-6.0 [facility] Comment on above: Performed By: #### L [id number] #### [facility] (BEAKER) [address] [place] [address] Erythrocyte distribution width (RBC) [Ratio] 13.3 % Normal 11.5-15.0 [facility] Comment on above: Performed By: #### L [id number] #### [facility] (BEAKER) [address] [place] [address] ERYTHROCYTE MEAN CORPUSCULAR HEMOGLOBIN CONCENTRATION (G/DL) BY AUTOMATED 32.7 g/dL Normal 32.0-35.0 [facility] Comment on above: Performed By: #### L [id number] #### [facility] (BEAKER) [address] [place] [address] Hematocrit (Bld) [Volume fraction] 42.5 % Normal 36.0-48.0 [facility] Comment on above: Performed By: #### L [id number] #### [facility] (BEAKER) [address] [place] [address] Hemoglobin (Bld) [Mass/Vol] 13.9 g/dL Normal 12.0-15.0 [facility] Comment on above: Performed By: #### L [id number] #### [facility] (BEAKER) [address] [place] [address] Immature granulocytes (Bld) [#/Vol] 0.02 10*3/uL Normal 0.00-0.20 [facility] Comment on above: Performed By: #### L [id number] #### [facility] ([facility]) [address] [place] [address] Immature granulocytes/100 WBC (Bld) 0.2 % Normal 0.0-1.0 [facility] Comment on above: Performed By: #### L [id number] #### [facility] (BEAKER) [address] [place] [address] Lymphocytes (Bld) [#/Vol] 2.37 10*3/uL Normal 1.20-4.00 [facility] Comment on above: Performed By: #### L [id number] #### [facility] ([facility] [address] [place] [address] Lymphocytes/100 WBC (Bld) 20.2 % Normal 20.0-45.0 [facility] Comment on above: Performed By: #### L [id number] #### [facility] ([facility] [address] [place] [address] MCH (RBC) [Entitic mass] 31.0 pg Normal 27.0-33.0 [facility] Comment on above: Performed By: #### L [id number] #### [facility] (BEAKER) [address] [place] [address] MCV (RBC) [Entitic vol] 94.7 fL Normal 82.0-98.0 [facility] Comment on above: Performed By: #### L [id number] #### [facility] (BEAKER) [address] [place] [address] Monocytes (Bld) [#/Vol] 0.86 10*3/uL Normal 0.10-1.00 [facility] Comment on above: Performed By: #### L [id number] #### [facility] (BEAKER) [address] [place] [address] Monocytes/100 WBC (Bld) 7.3 % Normal 5.0-12.0 [facility] Comment on above: Performed By: #### L [id number] #### [facility] (BEAKER) [address] [place] [address] Neutrophils (Bld) [#/Vol] 8.08 10*3/uL High 1.60-7.60 [facility] Comment on above: Performed By: #### L [id number] #### [facility] (BEAKER) [address] [place] [address] Neutrophils/100 WBC (Bld) 69.1 % Normal 40.0-72.0 [facility] Comment on above: Performed By: #### L [id number] #### [facility] (BEAKER) [address] [place] [address] NRBC (PER 100 WBCS) BY AUTOMATED COUNT 0.0 % Normal 0 [facility] Comment on above: Performed By: #### L [id number] #### [facility] (BEAKER) [address] [place] [address] PLATELETS (10*3/UL) IN BLOOD AUTOMATED COUNT 246 10*3/uL Normal 150-400 [facility] Comment on above: Performed By: #### L [id number] #### [facility] (BEAKER) [address] [place] [address] RBC (Bld) [#/Vol] 4.49 10*6/uL Normal 3.80-5.00 [facility] Comment on above: Performed By: #### L [id number] #### [facility] ([facility]) [address] [place] [address] WBC (Bld) [#/Vol] 11.71 10*3/uL High 4.00-10.60 [facility] Comment on above: Performed By: #### L [id number] #### [facility] ([facility]) [address] [place] [address] COMPREHENSIVE METABOLIC PANE Joel 05-27-2024 Albumin [Mass/Vol] 3.9 g/dL Normal 3.5-5.7 [facility] Comment on above: Performed By: #### L [id number] #### [facility] ([facility]) [address] [place] [address] ALP [Catalytic activity/Vol] 74 U/L Normal 34-104 [facility] Comment on above: Performed By: #### L [id number] #### [facility] ([facility]) [address] [place] [address] ALT [Catalytic activity/Vol] 22 U/L Normal 7-52 [facility] Comment on above: Performed By: #### L [id number] #### [facility] ([facility]) [address] [place] [address] Anion gap [Moles/Vol] 7 mmol/L Normal 7-20 [facility] Comment on above: Performed By: #### L [id number] #### [facility] ([facility]) [address] [place] [address] AST [Catalytic activity/Vol] 20 U/L Normal 13-39 [facility] Comment on above: Performed By: #### L [id number] #### [facility] ([facility]) [address] [place] [address] Bilirubin [Mass/Vol] 0.6 mg/dL Normal 0.3-1.0 [facility] Comment on above: Performed By: #### L [id number] #### [facility] (BEAKER) [address] [place] [address] Calcium [Mass/Vol] 8.8 mg/dL Normal 8.6-10.3 [facility] Comment on above: Performed By: #### L [id number] #### [facility] ([facility] [address] [place] [address] Chloride [Moles/Vol] 106 mmol/L Normal 98-107 [facility] Comment on above: Performed By: #### L [id number] #### [facility] ([facility]) [address] [place] [address] CO2 [Moles/Vol] 30 mmol/L Normal 21-31 [facility] Comment on above: Performed By: #### L [id number] #### [facility] ([facility]) [address] [place] [address] Creatinine [Mass/Vol] 0.90 mg/dL Normal 0.60-1.20 [facility] Comment on above: Performed By: #### L [id number] #### [facility] ([facility]) [address] [place] [address] GLOMERULAR FILTRATION RATE ML/MIN/1.73 SQ M.PREDICTED 69.2 mL/min/1.73m*2 Normal >60.0 [facility] Comment on above: Result Comment: The [facility]???s estimated glomerular filtration rate (eGFR) will no [...] individuals. Performed By: #### L [id number] #### [facility] ([facility] [address] [place] [address] Glucose [Mass/Vol] 94 mg/dL Normal 70-100 [facility] Comment on above: Performed By: #### L [id number] #### [facility] ([facility]) [address] [place] [address] Potassium [Moles/Vol] 3.7 mmol/L Normal 3.5-5.1 [facility] Comment on above: Performed By: #### L [id number] #### [facility] ([facility]) [address] [place] [address] Protein [Mass/Vol] 6.2 g/dL Normal 6.0-8.3 [facility] Comment on above: Performed By: #### L [id number] #### [facility] ([facility]) [address] [place] [address] Sodium [Moles/Vol] 139 mmol/L Normal 136-145 [facility] Comment on above: Performed By: #### L [id number] #### [facility] ([facility]) [address] [place] [address] Urea nitrogen [Mass/Vol] 21 mg/dL Normal 7-25 [facility] Comment on above: Performed By: #### L [id number] #### [facility] ([facility]) [address] [place] [address] UREA NITROGEN/CREATININE (MASS RATIO) IN SER/PLAS 23.3 Normal [facility] Comment on above: Performed By: #### L [id number] #### [facility] ([facility]) [address] [place] [address] CONSULTon 05-27-2024 CONSULT ----- ----- Attestation signed [...] not have recordings from her monitor in [facility] or during the surgery. Examination is unremarkable. Echo from 05/04/2024 showed moderate left ventricle hypertrophy but normal left ventricle systolic function mildly elevated PAP Plan: Continue to monitor rhythm. I think we should obtain the rhythm strips from [facility] and review to confirm that she had second-degree AV block with significant bradycardia as reported. Apparently Dr. Gaston was called in that regard and we will check with him if he reviewed those strips. Will check thyroid function. Consider sleep study in the future Dianne Benson MD, [facility] ----- Cardiology Consult Note Reason for Consult: complete heart block HPI: Melba Zapata is a 69 y.o. female with Pmh of smoking, depression, HTN, who was transferred from [facility] for cardiology evaluation d/t concern for [...] she was called to be admitted to [facility] for PPM placement. She also happened [...] not crush or chew. Past Week HYDROcodone-acetaminophen ([place]) 5 (more content not included)... Normal [facility] ED Clinical Summaryon 2023 ED Clinical Summary ED Clinical Summary [place] [id number] ED Clinical Summary Person Information Name: MELBA ZAPATA [facility]ate/[facility] Age: 69 Years : 1955 Sex: Female Language: Salvadorean PCP: Beatrice Ingram Marital Status: Visit Id: [...] 05/27/2024 09:55:08 05/27/2024 09:55:08 05/27/2024 09:55:08 ADDRESS: [address] [place] [id number] PHYS DOC NOTES: MEDICAL INFORMATION: Prescriptions Given: Medications to Continue with No Changes Other Medications acetaminophen-hydrocodone ([place] 325 mg-5 mg oral tablet) 1 Tablets By Mouth every 6 hours as needed as needed for pain. Refills: 0. PATIENT EDUCATION INFORMATION: Instructions: Follow up: DIAGNOSIS: 1:Complete heart block; 2:Dizziness; 3:Lightheaded Normal [facility] ED Patient Education Noteon 05-27-2024 ED Patient Education Note ED Patient Education Note Normal [facility] ED Patient Summaryon ED Patient Summary ED Patient Summary [address] [address] Patient Discharge Instructions Person Information Name: MELBA ZAPATA Age: 69 Years Arrival Date: 05/26/2024 12:32:31 Discharge Diagnosis: 1:Complete heart block; 2:Dizziness; 3:Lightheaded Primary Care Physician: Beatrice Ingram Provider Information Primary Provider: Tony Edmondson DO Advanced Tunnel Elastic Operator Chainstitch:Malcolm Greenwood PA-C. The exam and treatment you received in the Emergency Department were for an urgent problem and are not intended as complete care. It is important that you follow up with a doctor, nurse practitioner, or physician?s customer service assistant for ongoing care. If your symptoms [...] opioids can be used to help relieve nfpmgkni-fd-lxydpb pain and are often prescribed following a [...] be struggling with addiction, tell your health customer care professional and ask for guidance or call [facility]?S National Helpline at 7-921-302-TBVF. k Source: US Department of Health and Human Services/Center for Disease Control & Prevention [facility] (more content not included)... Normal [facility] Main OR Intraoperative Recor don 05-27-2024 Main OR Intraoperative Record Main OR Intraoperative Record IntraOp Document Type FT Summary Primary Physician: Aakash Levy MD Finalized Date/Time: 05/27/24 09:04:31 Pt. Name: MELBA ZAPATA/Sex: 1955 Female Med Rec #: [id number] Physician: Aakash Levy MD Financial #: [id number] Pt. Type: A Room/Bed: [place] [address] Admit/Disch: 05/26/24 05:56:56 - 05/26/24 11:10:00 Institution: [...] AT 0828. SURGEON AT [employer] FROM [phone].ALHAJI MAGANA. 05/27/24 Chart opened to review and send charges LRoth CSFA Case Attendance FT Entry 1 Entry 2 Entry 3 Case Attendee Aakash John MD, Aakash Martines CST, Scout Love Role Performed Anesthesiologist Surgeon - Primary ELECTRICAL SYSTEMS ENGINEER/SA Coordinator Of Rehabilitation Services Time In 05/26/24 07:37:00 05/26/24 07:37:00 05/26/24 07:37:00 Time Out 05/26/24 08:51:00 05/26/24 08:51:00 05/26/24 08:51:00 Procedure CHOLECYSTECOMY ROBOT CHOLECYSTECOMY ROBOT CHOLECYSTECOMY ROBOT ASSISTED(.) ASSISTED(.) ASSISTED(.) Comments IS SUPERVISING Last Modified By: Arelis Vila Kelsie E Burgderfer, Kelsie E 05/26/24 08:55:59 05/26/24 08:55:59 05/26/24 08:55:59 Entry 4 Entry 5 Case Attendee Arelis Vila LPN, Jessica D Role Performed [employer] Flatbed Driver - Primary Scrub - Primary Time In [...] Given Participants Mildred CONSTANTINO, Bobbi Nguyen CST, Julito Cardona Kelsie E, Pipo PALACIOSN, Vanessa Hou Time Out Complete [...] Procedure Yes Primary Surgeon Aakash Levy MD 05/26/24 07:59:00 Stop 05/26/24 08:44:00 Anesthesia Type [...] and tissue Entry 1 Skin Integrity Intact, Raven, Warm, & Skin Abnormality No Dry Outcomes Met? Yes Last Modified By: Arelis Vila 05/26/24 07:16:00 Post-Care Text: The patient is free from signs and symptoms of injury caused by extraneous objects Patient Positioning FT Pre-Care Text: Identifies physical alterations that (more content not included)... Normal [facility] TROPONIN Ion 05-27-2024 Troponin I.cardiac [Mass/Vol] 0.00 ng/mL Normal 0.00-0.04 [facility] Comment on above: Performed By: #### L [id number] ####[facility] (BEAKER)[address] [place] [address] TSH3 REFLEX TO FT4on 024 THYROTROPIN (MIU/L) IN SER/PLAS BY DETECTION LIMIT <= 0.05 MIU/L 0.43 mIU/L Normal 0.34-5.60 [facility] Comment on above: Performed By: #### L [id number] #### [facility] ([facility]) [address] [place] [address] CHEMISTRYOrdered By: SYSTEM SYSTEM on 05-26-2024 Troponin [...] Sensitivity Troponin I Instructions For Use, Saul Entiat, June 2018) Anion gap [Moles/Vol] 11 mmol/L [...] Chem Comment on above: Interpretive Data: T clayton 95% CI (Confidence Interval) PPV (Positive Predictive [...] 33.5 s Normal 25.1 - 36.5 second(s) [facility] Auto Coag Comment on above: Interpretive Data: Sg vasquez 15 days - 4 weeks 1 - 5 months 6 - 11 months 1 - 5 years 6 - 10 years 11 - 17 years PTT Mean: 35.4 (27.6-45.6) Mean: 33.5 (24.8-40.7) Mean: 32.4 (25.1-40.7) Mean: 31.6 (24.0-39.2) Mean: 31.6 (26.9-38.7) Mean: 31.0 (24.6-38.4) Pediatric Reference ranges were obtained from a study by Dimitrios Atwood et al. prepared from 1437 samples obtained at 7 different centers using the same coagulation reagent and instrumentation as [facility]. Currently there are no coagulation studies available worldwide for children to 14 days, and no normal ranges. Heparin therapeutic range (represented by Anti-Factor Xa activity of 0.2 - 0.4 U/mL) corresponds to PTT of 56.6 - 109.0 sec. INR Coag (PPP) [Relative time] 1.14 {INR} Invalid Interpretation Code [facility] Comment on above: Interpretive Data: I NR results are specifically intended to assess patients stabilized on long-term Anticoagulation therapy suggested INR s Less Intensive Anticoagulation 2.0 3.0 Conventional Range 3.0 4.5 PT Coag (PPP) [Time] 12.8 s High 9.4 - 12.5 second(s) [facility] Comment on above: Interpretive Data: [...] the same coagulation reagent and instrumentation as [facility]. Currently there are no coagulation studies available [...] AM EDT With: Aakash Levy MD Where: [facility] [place] [address], [address] [place] [address]- Friday 2:00 PM EDT With: Antonio FUENTES MD Where: [facility] [address] [place] [address] [place] [address]- Friday 2:30 PM EDT With: Where: [facility] [address], [place] [address]- 2023 2:00 PM EDT With: Beatrice Ingram Where: [facility] [address], [place] [address]- New Follow Up Appointments after Discharge Follow Up with Aakash Levy When: Comments: Appointment has already been scheduled Where: [address], [address] [facility] [address] [place] [phone] Business (1) Medications What How Much When Why Instructions Next Dose New acetaminophen-hydrocodone ([place] 325 mg-5 mg oral tablet) 1 Tablets By Mouth Every 6 hours as needed for as needed for pain Gall stones Pickup at [facility] Unchanged albuterol (Albuterol (Eqv-ProAir HFA) 90 [...] needed for Nausea/Vomiting Worsening headaches Pharmacy Information [facility]: [address] [place], [place] [id number] [phone] Allergies Contrast Dye (Swelling, Hives) adhesives (redness) [...] these instructions at home: Medicines ? Take bqow-ibz-yfmkmxr and prescription medicines only as told by [...] keep your urine pale yellow. ? Take cbdr-xeo-mumklws or prescription medicines. ? Eat foods that [...] and water (more content not included)... Normal [facility] Comment on above: Result Comment: Elec tronically Signed By: Everett MANE, Kateryna Meredith\.br\Date and Time Signed: 05/26/24 09:43 EDT Documentationon 05-26-2024 Documentation [id number] Diana Zapata 1955 F Date Provider Department Center 05/26/2024 [facility]. Family History Problem Relation Age of Onset Atrial fibrillation Mother Diabetes Mother Other Mother Transient ischemic attack Father Stroke Maternal Grandmother Family Status - Relation Status Age at Mother Father Maternal Grandmother [facility] ED Note-Physicianon 05-26-20 ED Note-Physician ED [...] Levy. Right afterwards she was called by [facility] with the results of her heart [...] and discussed the patient's case with her laborer operator YOVANY Mejia who was able to fax over the Holter results that demonstrated complete heart block. Roberto also stated that Dr. Mckay the head laborer operator wants the patient transferred for pacemaker placement at [facility]. We initiated transfer to [facility] and I spoke with Dr. Queen [...] in multi (more content not included)... Normal [facility] Comment on above: Result Comment: Elec tronically Signed By: Malcolm Greenwood PA-C\.br\Date and Time Signed: 05/26/24 16:01 EDT\.br\Electronically Co-Signed By: Malcolm Greenwood PA-C.br\Date and Time Co-Signed: 05/26/24 16:20 EDT\.br\Electronically Co-Signed By: Tony Edmondson DO.br\Date and Time Co-Signed: 05/26/24 16:29 EDT HEMATOLOGYOrdered [...] 05-26-2024 Inpatient Patient Summary Inpatient Patient Summary [place] [address] [facility] Clinical Discharge Instructions PERSON INFORMATION Name: MELBA ZAPATA PHYSICIANS Admitting Physician: Aakash Levy MD Attending Physician: Aakash Levy MD PCP: Beatrice Ingram Discharge Diagnosis: Comment: PATIENT EDUCATION INFORMATION Instructions: Minimally Invasive Cholecystectomy, Care After Medication Leaflets: Follow up: With: Address: When: Aakash Levy [address] [place] [phone] [facility] (1) Comments: Appointment has already been scheduled Type Location Start Finish State GS Post Op [facility] 06/04/2024 8:20 AM 06/04/2024 8:40 AM Confirmed URO New Patient [facility] [place] 07/12/2024 2:00 PM 07/12/2024 2:15 PM Confirmed FM Medicare Wellness Subsequent [facility] 07/13/2024 2:30 PM 07/13/2024 3:30 PM Confirmed FM Open [facility] 07/15/2024 2:00 PM 07/15/2024 2:20 PM Confirmed MEDICATION LIST New Medications [facility], [address] [place], [place] [id number], [phone] acetaminophen-hydrocodone ([place] 325 mg-5 mg oral tablet) 1 Tablets [...] as needed Nausea/Vomiting. Refills: 0. Comment: Di [facility] Main OR PACU I Recordon 05-04 Main OR PACU I Record Main OR PACU I Record PACU Phase I Document Type FT Summary Primary Physician: Aakash Levy MD Finalized Date/Time: 05/26/24 10:11:37 Pt. Name: MELBA ZAPATA/Sex: 1955 Female Med Rec #: [id number] Physician: Aakash Levy MD Financial #: [id number] Pt. Type: A Room/Bed: Admit/Disch: 05/26/24 05:56:56 - Institution: Case Times [...] Signed By: Suzy Solis RN 05/26/24 10:11 [facility] Main OR PACU II Recordon Main OR PACU II Record Main OR PACU II Record PACU Phase II Document Type FT Summary Primary Physician: Aakash Levy MD Finalized Date/Time: 05/26/24 11:28:51 Pt. Name: MELBA ZAPATA Phillip Collier./Sex: 1955 Female Med Rec #: [id number] Physician: Aakash Levy MD Financial #: [id number] Pt. Type: A Room/Bed: [place] [address] Admit/Disch: 05/26/24 05:56:56 - Institution: Case Times [...] By: Kateryna Floyd RN 05/26/24 11:28 Normal [facility] Operative Reporton 4 Operative Report Operative Report Indication for Surgery 69 y/o female with symptomatic cholelithiasis here for robotic cholecystectomy Preoperative Diagnosis GALLSTONES Postoperative Diagnosis GALLSTONES Operation CHOLECYSTECOMY ROBOT ASSISTED, ROBOT ASSISTED LAPAROSCOPIC CHOLECYSTECTOMY, . Surgeon(s) Aakash Levy MD (Surgeon - Primary) Coordinator Of Rehabilitation Services Miki Anesthesia General Scout Campbell Jr, DO (Mold Swabber) Leopoldo Carias (Anesthesiologist Coordinator Of Rehabilitation Services) Aakash John (Anesthesiologist Coordinator Of Rehabilitation Services) Estimated Blood Loss 5.0 mL Urine Output [...] x2 Patient tolerated the procedure: yes Normal [facility] Comment on above: Result Comment: Elec tronically Signed By: Mildred CONSTANTINO, Aakash Briones\.br\Date and Time Signed: 05/26/24 09:09 EDT Outpatient Surgery Discharge Instructionon 05-26-2024 Outpatient Surgery Discharge Instruction Outpatient Surgery Discharge Instruction [address] [address] Patient Discharge Instructions PERSON INFORMATION [...] THE NEAREST EMERGENCY ROOM OR CALL 911 IBENNY VALERIE A, have received the attached patient education materials/instructions and have verbalized understanding: May we do a follow up call? Yes No I was present when discharge instructions were given Patient Signature ___ Date Clinican/Nurse Signature Date Follow up: With: Address: When: Aakash Levy [address] [place] [address], [place] [address], [address] [address] [phone] Business (1) Comments: Appointment has already been scheduled Type Location Start Finish State GS Post Op 15 [facility] PAULETTE Chavez 06/04/2024 8:20 AM 06/04/2024 8:40 AM Confirmed URO New Patient [facility] AUDREY Martino 07/12/2024 2:00 PM 07/12/2024 2:15 PM Confirmed FM Medicare Wellness Subsequent [facility] 07/13/2024 2:30 PM 07/13/2024 3:30 PM Confirmed FM Open [facility] 07/15/2024 2:00 PM 07/15/2024 2:20 PM Confirmed [...] to serve you. Thank you for choosing [facility] HERE ARE THE MEDICATION CHANGES THAT OCCURRED DURING YOUR HOSPITAL STAY New Medications [facility], [address] [place], [place] [id number], [phone] acetaminophen-hydrocodone ([place] 325 mg-5 mg oral tablet) 1 Tablets [...] these instructions at home: Medicines ? Take mwma-udq-ktsorho and prescription medicines only as told by [...] pale ye (more content not included)... Normal [facility] Troponin 1 Hr.on 05-26-2024 Troponin HS 3.60 pg/mL Low 10.10-27.10 [facility] Comment on above: Result Comment: The 95% CI (Confidence Interval) PPV (Positive Predictive Value) for myocardial infarction in females is 38 pg/mL, in males 51 pg/mL. The results should be used in conjunction with clinical conditions of myocardial infarction. (Access High Sensitivity Troponin I Instructions For Use, Saul Entiat, June 2018) Performed By: #### 1 [id number] #### [facility] [address] [place] [address] 36on 05-25-2024 36 Regarding critical reports on event monitor from 05/22/2024: Debbie Sigala, NETO Nicole Kenyon, MEDHAT Nicole please call her and see how she is feeling, I don't think its really 3rd degree block- But would like to know what Rafita thinks- Dr. Puentes, can you please take a look at these reports that are scanned into her media consultant outside sales? Normal [facility] Office Visiton 05-14-2024 Follow-up visit [id number] Diana Zapata 1955 F Date Provider Department Center 05/14/2024 120-JOVON, DEBBIE CARD [facility] Family History Problem Relation Age of Onset Atrial fibrillation Mother Diabetes Mother Other Mother Transient ischemic attack Father Stroke Maternal Grandmother Family Status - Relation Status Age at Mother Father Maternal Grandmother Level of Service:[id number] MD OFFICE/OUTPATIENT ESTABLISHED MOD MDM 30 MIN Normal [facility] Pulmonary Function Studieson 05-01-2024 Pulmonary Function Studies [...] the diffusion capacity since then. READ BY: Miguel A Felix Dictated: 04/25/2024 [id number] Transcribed: 04/27/2024 cc:[email or web address] Manjarrez [facility] Comment on above: Result Comment: Elec tronically Signed By: Gaurav Caballero MDm G.\.br\Date and Time Signed: 05/01/24 14:53 EDT Coding Summary.on 04-28-2024 Coding Summary. VAVWJczl79PDr7aHq+PG hlYWQ +PB5QTBKlI23giJFqbI5yX8SK TElOSywgQVBQTElOSyIgbmFtZ H6ynFNlNFXp IC8+FA9aBKTbYzgjzRItd0A9s SW3Y20fum6yTDwnoZP4ZDAfFm Kskwwfx5bmmPf5HVpxAyyhUqV t WOOgyT78WPW5sX15Xo55bFQii FHpr7cipZp2QvWsKSKpTVD8dK vkSTpah0JmQEZzS50rjRJqg0U 6 CJVmkDdzoSRuJlJpiQE9zV9fN Lpmahutd0vtfqckJoq1wg52eU Jhj9A3vIO3A0VtcnV9VXRypYE g XmuzqZFUdO7gswbuj6vxcmkyO pPyUILgJQl8PAn5TAOtjIigNo VhOP52WAR5VDQjzvEyT5DsJCN s lFcyYyY7h3W9Dv8KS4SSHtbyD 1VNTUFSWTwvdGQ+ZI52iy11U3 BqUrobRdm2KXHoVKI7dRI7nN3 n QZAlIVkpt2S6sWR4N9YszxXst m9fq6xeEVCxTLmbH40jqSPrt3 S6LKZeqGE4OLDmxVuzBgIidK1 3 Oyc+MVPuiMwct6LuPhihi7tyn 1xcmIc9CsuyMCBebhHvoJzbWN C7o0EmMp6cOUCcfLJ4bEQ2mK8 i MtOiKtL5GPtoF205HnPtmTSrK jibQ57qE2JirHZ+GCEbWpm6XY OmcOpkWG9oC7ZjJUDzfmltbZV m bGqeZO7fWSQkpgnwTBQekJ4pC EEzH4m4WjArDoI0NIutW7CvGZ DzpghtRp38nN8kEyKfOaV1CXv u R1RgrmD3MJPdvMRdSXrjKJT3P 50br6X3VKRxLOKjNAI3zPG4mL 1hbGlnbjogbGVmdDsgdmVydGl j DSgqZCsfI963JHViwUyoXcMtM GluZyBEYXRlOiAgMDYvMjYvMj AyNDwvdGQ+LBAaLHC3sUrdAHS n dMIkOXdwXv6egWedsWxeGU0sJ TGvtsqrNJCynH1oSIJlkZXhiG snJB3iGEDmqphvy404PwSxVAG 0 DSXafVVkO7KaeB7tWeVwKMZfM ANgM0SchDSxLZlmM744UAbyZp P1UVPqjpVmY2TfVNNadUedKdU 0 z1N0Sz8Kw7RwoxpeY9VkhHGgQ gQdEbhuDRp6B3BgVwhpdGD+PC 19HXIjFC84RVg3JZM6pToqBOe i KYZgD6KicC5uJnBsRWGqFRIuK yc+PHRhYmxlIHdpZHRoPScxMD UxBwHjeWsmYJ2qEv0sPBUnUBX v lHbvqOYuYvKek5ysSAXhEVkdF J9qrRnyX2PcnLA3QPVeu4p1Ar 72Q88qB9UktLM+VHIwqQS7eUG 0 iQ5qOyHpPyF7XImmX428HxFyz UKcQrgtz6szo7rhlOu6WoW5OT GjksXqyTazRRP2f2GmFl63K61 s IHdpZHRoPSIxNSUiIHZhbGlnb m5nrH4vOj2+BSRgyZW9aTU8dZ 3zVoOuOdN0QXxdK982QfAbbHB v Vknxi7dsv8qvfJl7SfFgHAIvp mBkxAmrVGW1f1TpJw44E3NofF lhj4KqUsq5mo24iXMqh2B8sRF 9 I7JoNBJtqrbmfTUxoYteBU1yU GWhzjkgLXNebJ2yOEBzK9d2Md GqBrJ7VGycL9TdyxO9KJZnlNE g DBYwhAPCeK7unbqoh4lqerehC dRrALGxRSk1IMj6QROsrGogBq MjSVD5GyO0VVC4lRNmeZ2juTn n vvramZ2yHxd+DQH8pXKhyHSQY E5lLipziND+PJLqOFB1bFneVH tlCHVzeG1zUFUaQ0v7UnJaGeQ 1 QPljZ4FtzsR0MKIedCYgWTOqw TNZhX7pjtuvg1rfomwwRjZjUF KtAUq1JRo8YVHxcUaxBmMbWSA 0 NwH7TKQ4yZIwgO3cvZkxxbrar G9wOyc+HzvslYuvXFX6GVi9K1 EqKdw9AXFdsOvhPC4ecYYsSZs u Mo5okRebgRobRA9qVXXwgmacp 412TqHys5ayZZDavYDgXQekUQ E6R53ar6B0KFOnHADxNHF2jYR 4 oE3ndRephydqiCHfcTdjrqIjs IrcVXnmQQsrD778PZOacWsaKz JiHMx2B7LwYza2JYGcuSmkNJ7 n nYLfWVhcJx2itTdxhKfqTY1aT FQonthzr988CjCzm8inLGNehA GyZZowHKL4E00ev7M3DDJhCFZ w IQM6mMS8wR7paJamnepvyMSre MotoiNziAusMWweQFlxL143DE DtsOryApKqzRe6X4QiBxn3UMA z dLqgZM8tmFIcHBnySs7qmPogo AdwEB0jNACsgodad668EeQtp2 dgKQYkaTPpETkeXSO2U58ik6W 6 XGLzIACfCRD3iFL0bT0jaSdir jogbGVmdDsgdmVydGljYWwtYW psT810UEVjxBycJkVcfGkepxO g KEfnKOp5W3PnPauhoXN+PC90Y SEyAQ10rBLyjMVql8wqsQl3Cn YkIUOqGZQ8eEfuXRtph3EaZRO t L87inADip6K7CKKxdLbkaQOhB fOnpLJ3xX8aTNlyzvmov6yziw bmJxwaf8ijfi37bP91G95pCNz p YJMsQXZhCGHrINHhrCkssu0ii G9wIi8+ACQxzLJ3qXW8qB5tXU VyQtL1UVxhM577IjGtnDYtZgv j j7uiz3upmVw2QfI7JZOejzBti YbkZKL5h6QpGt81V83pGHaxXZ YzCCOvTUNrVJQkjOrujo8zgB6 w Ii8+AICvpTK2uUR3gM6zLyFnR eS2HYmgG289NwKigXPgBknpX3 8gA4EheMO+UQJfZpo8TRWazOj s GH1xuCXzYHyjIj3vZMK0OaUgG eGiKEkwH9NzBFGcxnbukxfhjK L3ZFAiNTTksS63Wv6ygNaaEUC w aLBFpX0nimewf3rojqnjUrJxE IUwZBy8OXa7IOZhoIplUbKkUS R7SpF4LKJ6bYIglB0vxZrwrcc g wU4eB2PxLSSzbwacYh47kK3tV bFaPjC3JAqbSrv+Z8jALBdtIH ZBTEVSSUUgQTwvdGQ+PHRkIHN 0 lMviQDtmNPWqyS0iUNUjV2m9R hSfCcY5HCzeQ4ByCJVxgssmUn 48sU4hZuSmNnY6VJxeM6FthhO 6 SSBroTAqXDgwJUJ0M65es4D5I ONkREHnSVL9kXK3jR1uvEkzdd ogbGVmdDsgdmVydGljYWwtYWx p R123UONgwLcvHvO8TtGwEnQ4I BX9N5FnZxa2DYCnrMqjNZ3atL AoKXabCh7opIlmrChlBT5zTWN p aqwqUHAowY8wTNYreZSxePezL S7zIWAinuiac476CaBdZAT6GR TjsJKbE8XcnB2uOzMnISIlNZT w S6RuzOVaDKukN735ZYzxVdZ4I FMymvGqO5SfUOMybOniInH8i7 P2Gc85UUFLIJKdcvmvoAI+PHR k EQG4cNedAGwnCLVhgO2aBAHkJ 0f9QtKpFlU4EImiS1DzOQCzud rlRo08yD9fYdCnCvC7IKasY9J v chI7DJYllONaPTywXLL2Z65kz 5M7TLBpPMXaJRU1gPJ4pB2msR lnbjogbGVmdDsgdmVydGljYWw t BEriD252DROfjFhzVjOjjPMlK TwvdGQ+YNCwDJE3kMseOWejCW JnoG3pCJUxL6n8UnHxRrG5FOd u K7YiYXJgimlhMx23mE5lHlTdU rC6MRorT0NtlkM2HRLrgDAbWU dwGTX2Q68oh0E2DDFaYUUaILM 7 kXJ4mD0dhOcyywqdjBLelAxyr hTmgKheZIdkIZqfV307SCTmgT zfYi31sZNjhFoczfD8N4ZfZla v dHI+ZN09VOPwGP17yYGvgLQbm 3katLi3KnTwKQXyKRA6yFfsCU yki4UjAFZaN98bjPBsu6F6SIG v kEjbySHkXyUvsWT8xE4lNTfai naav2hdmszsTehis5kbbl44nQ 50O68aGNszZCVtBMOePDMmKBS h dYkymo1xkB9aUq5+PYPrnYZ1q KP0rD2qSbAoJwC1UCulR012Cg RdcOHxEkogp2zdk9xloNo3GcK w EOYhhbEzzSbrAQL2n4UgQk46D 29sIHdpZHRoPSIyMCUiIHZhbG wzuv2iqO9bXl7+JV5rb3mfmh2 1 pR92dCR+IRXiZRY2gBobSIhqY DYloZ8jHGqsSuU0MKBqKbInvC 27rGFgNIdsXk0zsWsprPkxFJ7 w MXHikvwjb485WcDjb7xmQODjw FUfVBrbJFG8A38gx2K2JHQlPE MwHPN6gZP7yP1zcFdazmzdzCR m jBqthvIqxKrgCMmaBAgqQ517C MHibQhlLyGnqALfV2cjwhPLLN 1lOjwvdGQ+QPKvIIF9aAelUKp w EISavH3aVPJeF6b3CrMyQnK8Q UbkC1AluyG6LHBfxJQhJRBwaX CDrH3ancwlp5dhluluAiSxAZB w UZw9MQs9KFGnlVxtTkZuNKE6W vV8RFI4tXSfjK6osQkkkinrrV 9wOyc+RklOOjwvdGQ+PHRkIHN 0 hZanZAuhLXJapP7gABVdU5d8P sRnLlC7WDgjL5ZziqX5CSJkaK LsRQDtkTMGvA5tmjusq0zeixl g HoLhDYOzTXb4SZe1NMPhvBpqX nAhSFH0SqT6DEG1vQCmmS1vkM ehqneexD6iIjx+TVJOOjwvdGQ + MJYzSCW1qCakMTikCUMbtC1bY YKdQ4w5DzIjFoQ7ZXnvR4Fxig T9UBBorXBxSLWbwWUYvX9tswd j l5sbuyuqNoStDPRjSDx5RQy9M ETklBwrNxQoLQV8CjU8SCA5dS UreG3cqMqdszydaD8qGsd+UGF 5 BKQ9ZW82TH20S7LhCerspSDcl +PHRhYmxlIHdpZHRoPScxMD ArKyIpcPopZS7kJx2pYHYjDDR v bGxhcHNlOiBjb (more content not included)... Normal [facility] Consent for Procedure/Surger yon 04-28-2024 Consent for Procedure/Surgery [id number] [facility] Ambulatory Visit Summaryon 0 04-27-2024 Ambulatory Visit [...] EDT With: Mildred CONSTANTINO, Aakash Briones Where: [facility] [place] Invalid Interpretation Code [address] [place] [address]- \.br\ Friday 2:30 PM EDT \.br\ With:\.br\ Where: [facility] Primary Care [facility] General Surgery Office/Clini c Noteon 04-27-2024 General Surgery Office/Clinic Note Chief 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 female here for gall stones Beatrice Barnes TECHNOLOGY OFFICER-C referring US GB done 04/02/2024 Today patient states she has RUQ pain traveling to back, nausea No Known food trigger s/p appendectomy at age 24 s/p ovarian cystectomy done at age 24 History of Present Illness Consent: The patient or their guardian verbally consented to allow [facility] Viviana Avalos to record this visit. The patient [...] with voice recognition artificial intelligence software, specifically Tagged, HAUL and or [employer]. Substitutions may have occurred due to the inherent limitations of voice recognition and artificial intelligence software. ATTESTATION: Documentation services were performed after the patient or guardian consented to allow [employer] to record this visit. MICKY physician office specialist and provider reviewed before signing. MICKY: [...] of frac (more content not included)... Normal [facility] Comment on above: Result Comment: Elec tronically Signed By: Mildred CONSTANTINO, Aakash Briones\.br\Date and Time Signed: 04/27/24 16:19 EDT\.br\Electronically Co-Signed By: Lillian Osborne\.br\Date and Time Co-Signed: 04/27/24 15:28 EDT Consent for Treatmenton 04-03 Consent for Treatment [id number]#1.00TIFF Normal [facility] Pulmonary Function Testson 0 04-21-2024 Pulmonary Function Tests [id number]#1.00TIFF Normal [facility] Consent for Immunizationon 0 04-15-2024 Consent for Immunization [id number]#1.00TIFF Normal [facility] Family Medicine Office/Clini c Noteon 04-15-2024 Family [...] EKG when she underwent wrist surgery. Her laborer operator in [place] deemed her EKG to be acceptable at [...] BMI: 39. (more content not included)... Normal [facility] Comment on above: Result Comment: Elec tronically Signed By: Beatrice Ingram\.br\Date and Time Signed: 04/15/24 13:18 EDT\.br\Electronically Co-Signed By: Bayron Davalos\.br\Date and Time Co-Signed: 04/14/24 18:16 EDT Ambulatory Visit Summaryon 0 04-14-2024 Ambulatory Visit Summary MELBA ZAPATA :1955 Visit [...] CONSTANTINO, Antonio Srivastava Where: [facility] [place] Invalid Interpretation Code [address], [place] [address]- \.br\ 2023 2:00 PM EDT \.br\ With: Beatrice Ingram\.br\ Where: [facility] Primary Care [facility] Ambulatory Visit Summary MELBA ZAPATA :1955 Visit [...] Antonio FUENTES MD Where: [facility] Invalid Interpretation Code [address] [place] [address]- \.br\ 2023 2:00 PM EDT \.br\ With: Beatrice Ingram\.br\ Where: [facility] Primary Care [facility] Patient Educationon 04-14-20 24 Patient Education Blood Pressure Recor d Sheet [...] Reviewed: 07/04/2022 Else[employer] Patient Education ? 2022 [employer] Cardiovascular Hypertension, Adult High blood pressure [...] r (more content not included)... Normal [facility] CT Chest, Low Dose Screening on 04-07-2024 [...] Stevens M.D. Transcribed by: PRIMO Technologist: KRYSTIN Sevilla [facility] US Abdomen Completeon 2023 US Abdomen Complete [...] Transcribed by: PRIMO Technologist: JEAN PAUL Sevilla [facility] C Urineon 04-04-2024 Bacteria identified Cx Nom (U) Microbiology PROCEDURE: Urine Culture [R1] SOURCE: U CleanCatch BODY SITE: COLLECTED DATE/TIME: 04/02/2024 09:00 EDT RECEIVED DATE/TIME: 04/02/2024 11:01 EDT START DATE/TIME: 04/02/2024 11:01 EDT FREE TEXT SOURCE: Cameron SUGGS, Beatrice SUGGS, Beatrice Valdez FINAL REPORTS Final Report [] Verified Date/Time: [...] Locations R1: This test was performed at: [facility], [address] [place] [address], [id number] , , [facility] Comment on above: Performed By: #### 2 [id number] #### [facility] [address] [place] [address] Performed By: #### 2 [id number] ####[facility] [address] [place] [address] CBC w/ Auto Diffon 4 Basophils/100 WBC (Bld) 0.7 % Normal 0.0-2.0 [facility] Comment on above: Performed By: #### 2 [id number] #### [facility] [address] [place] [address] Basophils/Leukocyte s Auto (Bld) [Pure # fraction] 0.1 E9/L Normal 0.0-0.2 [facility] Comment on above: Performed By: #### 2 [id number] #### [facility] [address] [place] [address] Eosinophils (Bld) [#/Vol] 0.4 E9/L Normal 0.0-0.5 [facility] Comment on above: Performed By: #### 2 895229 #### [facility] [address] [place] [address] Eosinophils/100 WBC (Bld) 4.2 % Normal 0.0-8.0 [facility] Comment on above: Performed By: #### 2 [id number] #### [facility] [address] [place] [address] Erythrocyte distribution width (RBC) [Ratio] 13.3 % Normal 10.9-14.2 [facility] Comment on above: Performed By: #### 2 [id number] #### [facility] [address] [place] [address] Hematocrit (Bld) [Volume fraction] 46.7 % High 34.0-46.0 [facility] Comment on above: Performed By: #### 2 831793 #### [facility] [address] [place] [address] Hemoglobin (Bld) [Mass/Vol] 15.9 g/dL Normal 12.0-16.0 [facility] Comment on above: Performed By: #### 2 464155 #### [facility] [address] [place] [address] Lymphocytes (Bld) [#/Vol] 2.1 E9/L Normal 1.0-4.0 [facility] Comment on above: Performed By: #### 2 469925 #### [facility] [address] [place] [address] Lymphocytes/100 WBC (Bld) 21.8 % Normal 14.0-50.0 [facility] Comment on above: Performed By: #### 2 861908 #### [facility] [address] [place] [address] MCH (RBC) [Entitic mass] 31.6 pg Normal 27.0-34.0 [facility] Comment on above: Performed By: #### 2 470260 #### [facility] [address] [place] [address] MCHC (RBC) [Mass/Vol] 34.1 g/dL Normal 31.4-36.0 [facility] Comment on above: Performed By: #### 2 357100 #### [facility] [address] [place] [address] MCV (RBC) [Entitic vol] 92.5 fL Normal 80.0-100.0 [facility] Comment on above: Performed By: #### 2 193824 #### [facility] [address] [place] [address] Monocytes (Bld) [#/Vol] 0.7 E9/L Normal 0.2-1.0 [facility] Comment on above: Performed By: #### 2 146475 #### [facility] [address] [place] [address] 17495 Neutrophils (Bld) [#/Vol] 6.5 E9/L Normal 2.0-7.5 [facility] Comment on above: Performed By: #### 2 648638 #### [facility] [address] [place] [address] 399[address] Neutrophils/100 WBC (Bld) 66.0 % Normal 36.0-75.0 [facility] Comment on above: Performed By: #### 2 379009 #### [facility] [address] [place] [address] Platelet mean volume (Bld) [Entitic vol] 7.9 fL Normal 6.4-10.8 [facility] Comment on above: Performed By: #### 2 456396 #### [facility] [address] [place] [address] Platelets (Bld) [#/Vol] 284.0 E9/L Normal 150.0-500.0 [facility] Comment on above: Performed By: #### 2 141818 #### [facility] [address] [place] [address] RBC (Bld) [#/Vol] 5.1 E12/L Normal 4.3-5.9 [facility] Comment on above: Performed By: #### 2 893603 #### [facility] [address] [place] [address] WBC corrected for nucl RBC Auto (Bld) [#/Vol] 9.9 E9/L Normal 4.0-11.0 [facility] Comment on above: Performed By: #### 2 143376 #### [facility] [address] [place] [address] CHEMISTRYOrdered By: SYSTEM SYSTEM on 04-02-2024 25-hydroxyvitamin [...] (Bld) [Mass fraction] 5.6 % Normal <=5.9% [facility] ChemAutoSS CMPon 04-02-2024 Albumin [Mass/Vol] 4.3 g/dL Normal 3.3-5.0 [facility] Comment on above: Performed By: #### 2 913650 #### [facility] [address] [place] [address] Albumin/Globulin (S) [Mass conc ratio] 1.5 Normal 1.1-2.2 [facility] Comment on above: Performed By: #### 2 799949 #### [facility] [address] [place] [address] ALP [Catalytic activity/Vol] 88 Int._Unit/L Normal 21-98 [facility] Comment on above: Performed By: #### 2 898085 #### [facility] [address] [place] [address] ALT No additional P-5'-P [Catalytic activity/Vol] 15 Int._Unit/L Normal 6-46 [facility] Comment on above: Performed By: #### 2 337645 #### [facility] [address] [place] [address] AST [Catalytic activity/Vol] 17 Int._Unit/L Normal 5-43 [facility] Comment on above: Performed By: #### 2 426296 #### [facility] [address] [place] [address] Bilirubin [Mass/Vol] 0.6 mg/dL Normal 0.0-1.1 [facility] Comment on above: Performed By: #### 2 080112 #### [facility] [address] [place] [address] Calcium [Mass/Vol] 9.1 mg/dL Normal 8.9-11.1 [facility] Comment on above: Performed By: #### 2 059892 #### [facility] [address] [place] [address] Chloride [Moles/Vol] 107 mmol/L Normal 101-111 [facility] Comment on above: Performed By: #### 2 362810 #### [facility] [address] [place] [address] Creatinine [Mass/Vol] 1.0 mg/dL Normal 0.5-1.3 [facility] Comment on above: Performed By: #### 2 793624 #### [facility] [address] [place] [address] Globulin (S) [Mass/Vol] 2.8 g/dL Normal 1.4-4.0 [facility] Comment on above: Performed By: #### 2 441366 #### [facility] [address] [place] [address] Glucose [Mass/Vol] 95 mg/dL Normal 55-199 [facility] Comment on above: Performed By: #### 2 328786 #### [facility] [address] [place] [address] Potassium [Moles/Vol] 4.0 mmol/L Normal 3.5-5.3 [facility] Comment on above: Performed By: #### 2 163500 #### [facility] [address] [place] [address] Protein [Mass/Vol] 7.1 g/dL Normal 6.0-7.8 [facility] Comment on above: Performed By: #### 2 676050 #### [facility] [address] [place] [address] Sodium [Moles/Vol] 140 mmol/L Normal 135-145 [facility] Comment on above: Performed By: #### 2 540767 #### [facility] [address] [place] [address] Urea nitrogen [Mass/Vol] 21 mg/dL Normal 5-21 [facility] Comment on above: Performed By: #### 2 781153 #### [facility] [address] [place] [address] Urea nitrogen/Creatinine [Mass ratio] 21 No Units High 10-20 [facility] Comment on above: Performed By: #### 2 375120 #### [facility] [address] [place] [address] Anion gap [Moles/Vol] 10 mmol/L Normal 6-16 [facility] Comment on above: Performed By: #### 2 386955 #### [facility] [address] [place] [address] CO2 [Moles/Vol] 27 mmol/L Normal 21-31 [facility] Comment on above: Performed By: #### 2 872079 #### [facility] [address] [place] [address] Consent for Treatmenton 03-05 Consent for Treatment [id number]#1.00TIFF Normal [facility] Free T4on 04-02-2024 Free T4 [Mass/Vol] 0.87 ng/dL Normal 0.58-1.64 [facility] Comment on above: Performed By: #### 2 798928 #### [facility] [address] [place] [address] HEMATOLOGYOrdered By: SYSTEM SYSTEM on 04-02-2024 Basophils/100 [...] - 11.0 E9/L Remisol Heme HEMATOLOGYOrdered By: Valesa Fowler on 04-02-2024 ESR (Bld) [Velocity] 13 mm/h Normal 0 - 34 mm/hr [facility] HemeAutoSS [id number] 04-02-2024 HbA1c (Bld) [Mass fraction] 5.6 % Normal <=5.9 [facility] Comment on above: Performed By: #### 7 [id number] #### [facility] [address] [place] [address] Lipase Levelon 04-02-2024 Lipase [Catalytic activity/Vol] 18 U/L Normal 13-58 [facility] Comment on above: Performed By: #### 2 582629 #### [facility] [address] [place] [address] Lipid Panelon 04-02-2024 Cholesterol [Mass/Vol] 192 mg/dL Normal 120-200 [facility] Comment on above: Performed By: #### 2 513806 #### [facility] [address] [place] [address] Cholesterol in HDL [Mass/Vol] 46 mg/dL Invalid Interpretation Code [facility] Comment on above: Result Comment: '>= 60 LOW RISK' '<= 40 HIGH RISK' Performed By: #### 2 946462 #### [facility] [address] [place] [address] Cholesterol in LDL [Mass/Vol] 132 mg/dL High <=129 [facility] Comment on above: Performed By: #### 2 249536 #### [facility] [address] [place] [address] Cholesterol in VLDL [Mass/Vol] 22 mg/dL Normal 7-40 [facility] Comment on above: Performed By: #### 2 551651 #### [facility] [address] [place] [address] Triglyceride [Mass/Vol] 110 mg/dL Normal <=149 [facility] Comment on above: Performed By: #### 2 089422 #### [facility] [address] [place] [address] Sed Rate Automatedon 024 ESR (Bld) [Velocity] 13 mm/h Normal 0-34 [facility] Comment on above: Performed By: #### 1 [id number] #### [facility] [address] [place] [address] TSHon 04-02-2024 TSH Qn 2.99 m[IU]/L Normal 0.34-5.60 [facility] Comment on above: Performed By: #### 2 301940 #### [facility] [address] [place] [address] UA With Cult Reflexon 2023 Type of Urine collection method Clean Catch Normal [facility] Comment on above: Performed By: #### 1 [id number] #### [facility] [address] [place] [address] Clarity (U) Clear Normal Clear [facility] Comment on above: Performed By: #### 1 2571684 #### [facility] [address] [place] [address] Color (U) Yellow Normal Yellow [facility] Comment on above: Result Comment: Micr oscopic readings are only performed on those samples that meet specific criteria set forth by [facility]. Performed By: #### 1 [id number] #### [facility] [address] [place] [address] Epithelial cells.squamous Auto (Urine sed) [#/Area] 9-10 Abnormal 0-2 [facility] Comment on above: Performed By: #### 1 [id number] #### [facility] [address] [place] [address] Leukocyte esterase Auto test strip Ql (U) 500 Carlitos/uL Abnormal Negative [facility] Comment on above: Performed By: #### 1 [id number] #### [facility] [address] [place] [address] Mucus Auto Ql (U) Trace Normal Negative [facility] Comment on above: Performed By: #### 1 [id number] #### [facility] [address] [place] [address] pH (U) 6.5 [pH] Invalid Interpretation Code 5.0-9.0 [facility] Comment on above: Performed By: #### 1 [id number] #### [facility] [address] [place] [address] RBC Ql (U) 4-20 Abnormal 0-3 [facility] Comment on above: Performed By: #### 1 3673521 #### [facility] [address] [place] [address] Specific gravity (U) [Rel density] 1.020 Invalid Interpretation Code 1.005-1.030 [facility] Comment on above: Performed By: #### 1 [id number] #### [facility] [address] [place] [address] WBC Auto (Urine sed) [#/Area] 16-25 Abnormal 0-5 [facility] Comment on above: Performed By: #### 1 4058751 #### [facility] [address] [place] [address] UA With Cult ReflexOrdered B y: SYSTEM SYSTEM on 04-02-2024 Bilirubin Ql (U) Negative Normal Negative [facility] UA Auto SS Comment on above: Performed By: #### 1 [id number] #### [facility] [address] [place] [address] Glucose Ql (U) Negative Normal Negative [facility] UA Auto SS Comment on above: Performed By: #### 1 [id number] #### [facility] [address] [place] [address] Hemoglobin Auto test strip (U) [Mass/Vol] Negative Normal Negative [facility] UA Auto SS Comment on above: Performed By: #### 1 [id number] #### [facility] [address] [place] [address] Ketones Auto test strip Ql (U) Negative Normal Negative [facility] UA Auto SS Comment on above: Performed By: #### 1 [id number] #### [facility] [address] [place] [address] Nitrite Auto test strip Ql (U) Negative Normal Negative [facility] UA Auto SS Comment on above: Performed By: #### 1 [id number] #### [facility] [address] [place] [address] Protein Ql (U) Negative Normal Negative [facility] UA Auto SS Comment on above: Performed By: #### 1 [id number] #### [facility] [address] [place] [address] Urobilinogen (U) [Mass/Vol] Negative Normal Negative [facility] UA Auto SS Comment on above: Performed By: #### 1 [id number] #### [facility] [address] [place] [address] URINALYSISOrdered By: SYSTEM SYSTEM on 04-02-2024 Clarity (U) Clear (04/02/24 9:00 AM) Normal Clear [facility] UA Auto SS Color (U) Yellow 1 (04/02/24 9:00 AM) Normal Yellow [facility] UA Auto SS Comment on above: Interpretive Data: M icroscopic readings are only performed on those samples that meet specific criteria set forth by [facility]. Epithelial cells.squamous Auto (Urine sed) [#/Area] 9-10 graded/HPF Invalid Interpretation Code 0-2graded/HPF [facility] UA Auto SS Leukocyte esterase Auto test strip Ql (U) 500 Carlitos/uL Carlitos/uL Invalid Interpretation Code NegativeLeu/uL [facility] UA Auto SS Mucus Auto Ql (U) Trace graded/LPF Normal Negati vegraded/ LPF [facility] UA Auto SS pH (U) 6.5 *NA* (04/02/24 9:00 AM) Invalid Interpretation Code 5.0 - 9.0 [facility] UA Auto SS RBC Ql (U) 4-20 graded/HPF Invalid Interpretation Code 0-3graded/HPF [facility] UA Auto SS Specific gravity (U) [Rel density] 1.020 *NA* (04/02/24 9:00 AM) Invalid Interpretation Code 1.005 - 1.030 [facility] UA Auto SS WBC Auto (Urine sed) [#/Area] 16-25 graded/HPF Invalid Interpretation Code 0-5graded/HPF [facility] UA Auto SS URINALYSISOrdered By: Karo Araiza on 04-02-2024 UA Spec Desc Clean Catch (04/02/24 9:00 AM) Normal [facility] UA Auto SS Vitamin D 25 Hydroxyon 04-02 25-hydroxyvitamin D3 [Mass/Vol] 22.9 ng/mL Low 30.0-100.0 [facility] Comment on above: Performed By: #### 5 [id number] #### [facility] [address] [place] [address] eGFRon 04-02-2024 eGFR 61 mL/min/1.73 m2 Normal >=59 [facility] Comment on above: Order Comment: Order added by Discern Expert. Performed By: #### 1 [id number] #### [facility] [address] [place] [address] Ambulatory Visit Summaryon 0 03-19-2024 Ambulatory Visit [...] Follow-Up Appointments Friday 2:30 PM EDT Where: [facility] Normal Hydronephrosis with renal and ureteral calculous obstruction, pp_set_radiolog y_subspecialty, Not Required, Pope - Gavin\.br\ Medications\.br \ What How Much When Why Instructions\.b r\ New hydrochlorothia zide-lisinopril (hydrochlorothi azide-lisinopri l 12.5 mg-10 mg Tab) 1 Tablets By Mouth Every day Benign essential HTN Pickup at [facility]\.br\ New nicotine (nicotine 7 mg/ 24 hr Transderm ER Film) 1 Patches Topical Every day Personal history of tobacco use Refills: 1 Pickup at [facility]\.br\ Unchanged buPROPion (Wellbutrin SR 150 mg Tab-ER) 1 Tablets By Mouth 2 times a day Depression Other obesity Personal history of tobacco use Pickup at [facility]\.br\ Unchanged duloxetine (duloxetine 60 mg oral delayed release capsule) 1 Capsules By Mouth Every day Anxiety Depression Pickup at [facility]\.br\ Unchanged ondansetron (Zofran 4 mg Tab) 1 Tablets By Mouth Every 8 hours as needed for Nausea/Vomiting Worsening headaches Contact prescribing physician if questions or concerns \.br\ Pharmacy Information\.br \ [facility]: [address] [place] [place] [id number] [phone]\.br\ Allergies\.br\ Contrast Dye (Swelling, Hives)\.br\ adhesives (redness)\.br\ [...] choosing us for your care.\.br\ \.br\ Niko [facility] Family Medicine Office/Clini c Noteon 03-19-2024 Family [...] is correct. Additional information provided if needed. Mleba Zapata is a 69-year-old female who is [...] rings. She also consumed a drink called [employer], a deviation from her usual consumption. She [...] palpation over the umbilicus region with negative Croswell sign, negative Pate's sign. Back: No? tenderness, Normal? ROM, (more content not included)... Normal [facility] Comment on above: Result Comment: Elec tronically [...] hard liquor (44 mL). Medicines ? Take mnta-zhc-dnsfpfs and prescription medicines only as told by [...] more informatio (more content not included)... Normal [facility] OT - Workers [facility] 01-06-20 24 OT - Workers Comp [id number]#1.00TIFF Normal [facility] OT - Workers [facility] 12-25-19 24 OT - Workers Comp [id number]#1.00TIFF Normal [facility] Physician Referralon 024 Physician Referral [id number]#1.00TIFF Normal [facility] Family Medicine Office/Clini c Noteon 12-14-2023 Family Medicine Office/Clinic Note Chief Complaint Establish Care-Former [facility] HPI Staff Patient here to Establish Care History: Any previous diagnosis: Benign HTN, Depression, Hyperlipidemia History of seeing any specialist(s): yes Ortho for wrist fracture 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 Maddox, Dr. Coleman Cop: N/A Dentist: N/A Psychology/psychiatry: N/A Cardiology: N/A [...] Dr Coleman, a reconstructive surgeon based in [place], who confirmed the possibility of correction. The patient intended to undergo the corrective procedure in the spring, but due to a fall, she was nearly non-weight bearing for 2 months. Fracture of right wrist with routine healing. The patient reports having undergone laboratory tests at [facility] for pre-admission at the end of [...] healing correctly. She continues her therapy at [facility]. She has an appointment with Dr Griffin [...] patient pres (more content not included)... Normal [facility] Comment on above: Result Comment: Elec tronically Signed By: Beatrice Ingram\.br\Date and Time Signed: 12/14/23 23:26 EST\.br\Electronically Co-Signed By: Yue Reinoso\.br\Date and Time Co-Signed: 12/10/23 22:42 EST Ambulatory Visit Summaryon 0 12-10-2023 Ambulatory Visit Summary CONORLUISMELBA :1955 Visit Date:12/10/2023 Ambulatory Visit Instructions Your [...] Occupational Therapy Friday 2:30 PM EDT Where: [facility] Invalid Interpretation Code Wellness examination, Not Required, Print Label By Order Location\.br\ Comprehensive Metabolic Panel, Blood, Routine collect, 12/10/23, Order for future visit, Lab Collect, Benign essential HTN [facility] Patient Educationon 12-10-19 Patient Education Immunology Fatigue [...] these instructions at home: Medicines ? Take rciz-awb-filpeot and prescription medicines only as told by [...] the National Suicide Prevention Lifeline at or 119. This is open 24 hours a day. ? Text the Crisis Text Line at 523753. Summary ? If you have fatigue, you [...] provider. Document Revised: 08/12/2022 Document Reviewed: 08/12/2022 [employer] Patient Education ? 2022 [employer]. Mental and Behavioral Health Major Depressive Disorder, [...] ? You (more content not included)... Normal [facility] Pre-Visit Planningon 024 Pre-Visit Planning - From: [...] BMI of 38.03 on 10/30/2023. The National Terral of Health defines obesity as morbid if [...] feel free to contact me at extension [phone]. Thank you! SIMONA Pardo, RN, CCM, CCDS, CCDS-O From: Beatrice Ingram To: Yolette Laughlin RN; Sent: 12/09/2023 22:05:42 EST Subject: RE: Pre-Visit Planning Caller Name: MELBA ZAPATA; Caller Number: H - Class 3 severe obesity BMI 38 with serious comorbidity in adult with HTN. ??? (please also include additional diagnosis to reflect current BMI) Normal [address] [facility] Pre-Visit Planning - From: Yolette Laughlin [...] feel free to contact me at extension [phone]. Thank you! SIMONA Pardo, RN, CCM, CCDS, CCDS-O From: Beatrice Ingram To: Truman MANE, Yolette; Sent: 12/09/2023 22:04:13 EST Subject: RE: Pre-Visit Planning Caller Name: MELBA ZAPATA; Caller Number: H Major depressive disorder, recurrent, mild Normal [address] [facility] OT - Home Exercise Programon 12-04-2023 OT - Home Exercise Program [id number]#1.00TIFF [facility] OT - Assessmentson OT - Assessments [id number]#1.00TIF F [facility] OT - Consentson 11-14-2023 OT - Consents [id number]#1.00TIF F [facility] OT - Home Exercise Programon 11-14-2023 OT - Home Exercise Program [id number]#1.00TIF F [facility] OT - Orderson 11-12-2023 OT - Orders [id number]#1.00TIFF [facility] Consent for Treatmenton Consent for Treatment [id number]#1.00TIFF [facility] OT - Workers Compon 11-10-19 24 OT - Workers Comp [id number]#1.00TIFF [facility] Workers Comp Formson 024 Workers Comp Forms [id number]#1.00TIFF [facility] Consent for Flu Vaccineon Consent for Flu Vaccine [id number]#1.00TIFF [facility] Family Medicine Office/Clini c Noteon 10-31-2023 Family [...] of clutter to prevent tripping and/or falling. [place] Advance Directives reviewed. Packet received in the [...] many disease (more content not included)... Normal [facility] Comment on above: Result Comment: Elec tronically Signed By: Aakash EL MD\.br\Date and Time Signed: 10/31/23 12:38 EST\.br\Electronically Co-Signed By: Tiffanie Yi LPN\.br\Date and Time Co-Signed: 10/30/23 16:16 EST [place] 10-31-2023 Screens [id number]#1.00TIFF [facility] Ambulatory Visit Summaryon 1 12-31-2022 Ambulatory Visit [...] 4:00 PM EST With: Beatrice Ingram Where: [facility] Normal [address], [place] [address]- \.br\ Medications\.br \ What How Much When [...] it yourself. Visit the VAERS website at www.ViOptixers.community health systems. ov or call . VAERS is only for reporting reactions, and VAERS staff do not give medical advice.\.br\ 6. How can I learn more?\.br\ ? \.br\ Ask your health care provider.\.br\ ? \.br\ Call your local or state health department.\.br \ ? \.br\ Contact the Centers for Disease Control and Prevention (CDC):\.br\ ? \.br\ Call (4-333-AEO-INFO ) or\.br\ ? \.br\ Visit CDC's website [...] provider.\.br\ Document Revised: 09/18/2022 Document Reviewed: 07/22/2022 [employer] Patient Education ? 2022 [employer] Inc.\.br\ Understanding Your Risk for Falls\.br\ Each [...] insomnia, or edema, as well as tyler [facility] Patient Educationon 12- 23 Patient Education Caregiving Understanding Your Risk [...] Community-Based Fall Prevention Programs: www.cdc.gov ? National Terral on Aging: www.erich.nih.gov Contact a health care [...] provider. Document Revised: 05/23/2021 Document Reviewed: 05/23/2021 [employer] Patient Education ? 2022 [employer] Inc. Infectious Disease Pneumococcal Polysaccharide Vaccine (PPSV23): What You Need to Know 1. Why get vaccinated? Pneumococcal polysaccharide vaccine (PPSV23) can prevent pneumococcal disease. Pneumococcal disease refers to any illness caused by pneumococcal bacteria. These bacteria can cause many types of illnesses, including pneumonia, which is an infection of the lungs. Pneumococca (more content not included)... Normal [facility] [place] LESS THAN 1 HOURon 2022 [place] LESS THAN 1 HOUR Radiology exam is complete. No Radiologist dictation. Please follow up with ordering provider. Final result Normal [facility] Office Visiton 10-02-2023 Follow-up visit [id number] Diana Zapata 1955 F Date Provider Department Center 10/02/2023 [id number], SHELMITH BH CARD [facility] Family History Problem Relation Age of Onset Atrial fibrillation Mother Diabetes Mother Other Mother Transient ischemic attack Father Stroke Maternal Grandmother Family Status - Relation Status Age at Mother Father Maternal Grandmother Level of Service:12705 MD OFFICE/OUTPATIENT NEW MODERATE MDM 45-59 MINUTES Normal [facility] CT Head or Brain w/o Contras ton [...] MD Transcribed by: PRIMO Technologist: TERRY Sevilla [facility] CT Spine Cervical w/o Contra ston 09-10-2023 [...] Merrick Torrez MD Transcribed by: PRIMO Technologist: Di [facility] Consent for Treatmenton Consent for Treatment [id number]#1.00TIFF [facility] Discharge Instructionson Discharge Instructions [id number]#1.00TIFF [facility] ED Clinical Summaryon 2022 ED Clinical Summary (Inserted Image. Margret ble to display) [place] [id number] ED Clinical Summary Person Information Name: MELBA ZAPATA/[facility] Age: 68 Years : 1955 Sex: Female Language: Salvadorean PCP: Martha Hathaway CNP Marital Status: Phone: [phone] Visit Id: Visit Reason: Knee pain-swelling; Wrist [...] 14:28:48 09/10/2023 14:28:48 09/10/2023 14:28:48 ADDRESS: [address] [phone] PHYS DOC NOTES: MEDICAL INFORMATION: Prescriptions Given: New Medications [facility], [address] [place], [place] [id number], [phone] acetaminophen-oxycodone (acetaminophen-oxycodone 325 mg-5 mg Tab) 1 Tablets By Mouth every 6 hours as needed for pain for 3 Days. Refills: 0. Medications to Continue with No Changes Other Medications duloxetine (duloxetine 60 mg oral delayed release capsule) 1 Capsules By Mouth every day. Refills: 0. PATIENT EDUCATION INFORMATION: Instructions: Contusion; Cervical Sprain; Radial Fracture Follow up: With: Address: When: Rony Wray [address] [place] [id number] [facility] (9) In 3 days 09/13/2023 Comments: Follow-up with Dr. Wray for further evaluation of your distal radius fracture. With: Address: When: Occupational Health: [facility] [phone] In 3 days 09/13/2023 With: Address: When: Martha Hathaway In 3 days 09/13/2023 Comments: Follow-up with your primary care provider in 3 to 5 days. If symptoms worsen, do not improve, or new symptoms arise please report back to emergency department for further evaluation. DIAGNOSIS: Cervical strain; Closed head injury; Contusion of left knee; Fall; Right radial fracture Normal [facility] ED Note-Physicianon 09-10-20 ED Note-Physician Basic Information Time Seen: Phil BLEDSOE, Sushil Ha 09/10/2023 11:49 Chief Complaint patient c/o right wrist pain, left knee pain and neck pain after tripping and falling this afternoon. denies LOC or use of blood thinners. - [facility] [employer] office History of Present Illness [...] and Complexity of Problems Differential Diagnosis: [] [facility] Data External documents reviewed: [] My [...] for 3 day(s), 12 tab(s), Refill(s) 0, [facility], 167, cm, 09/10/23 11:47:00 EST, Height/Length [...] 3 days 09/13/2023 EST [address] [place], [place] [address] (1) Additional Instructions: Follow-up with Dr. Dockery (more content not included)... Normal [facility] Comment on above: Result Comment: Elec tronically Signed By: Phil BLEDSOE, Sushil Ha\.br\Date and Time Signed: 09/10/23 14:46 EST\.br\Electronically Co-Signed [...] or lying down. General instructions ? Take snaa-qtf-cztyuuu and prescription medicines only as told by [...] compression, and elevation. You may be given cqsk-lmp-kpvzyya medicines for pain. ? Contact a health [...] provider. Document Revised: 09/03/2022 Document Reviewed: 08/15/2022 [employer] Patient Education ? 2022 [employer] Inc. Cervical Sprain A cervical sprain is [...] doing p (more content not included)... Normal [facility] ED Patient Summaryon 023 ED Patient Summary (Inserted Image. Margret ble to display) [address] [address] Patient Discharge Instructions Person Information Name: MELBA ZAPATA Age: 68 Years Arrival Date: 09/10/2023 11:36:20 Discharge Diagnosis: Cervical strain; Closed head injury; Contusion of left knee; Fall; Right radial fracture Primary Care Physician: Martha Hathaway CNP Provider Information Primary Provider: Som Willis M.D. Advanced Tunnel Elastic Operator Chainstitch:None The exam and treatment you received in the Emergency Department were for an urgent problem and are not intended as complete care. It is important that you follow up with a doctor, nurse practitioner, or physician?s customer service assistant for ongoing care. If your symptoms [...] Instructions: With: Address: When: Rony Wray [address] [place] [address] business (1) In 3 days 09/13/2023 Comments: Follow-up with Dr. Wray for further evaluation of your distal radius fracture. With: Address: When: Occupational Health: [facility] [phone] In 3 days 09/13/2023 With: Address: When: [...] opioids can be used to help relieve vlpuxynp-py-orpdkb pain and are often prescribed following a [...] Safely dispose of (more content not included)... [facility] ED Traumaon 09-10-2023 ED Trauma [id number]#1.00TIFF [facility] Workers Comp Form[employer] 023 Workers Comp Forms [id number]#1.00TIFF [facility] XR Knee Complete 4+ Views Le fton [...] mGy = 0 DAP = 0 Normal [facility] XR Wrist 3+ Views Righton XR Wrist [...] wrist. No other significant abnormality. Ordering Provider: Suhsil Villarreal FINAL REPORT Dictated: 09/10/2023 1:42 pm Merrick Torrez MD. Signed (Electronic Signature): 09/10/2023 1:42 pm Signed by: Merrick Torrez MD Transcribed by: PRIMO Technologist: LOPEZ Technical Comments Radiation Dose: Ka,r in mGy = 0 DAP = 0 Normal [facility] Medicine Office/Clini c Noteon 08-21-2023 Family Medicine [...] with voice recognition software. Occasional wrong-word or ?jmdqp-u-skyq? substitutions may have occurred due to the [...] day(s), # 14 cap(s), Refills(s) 0, Pharmacy: [facility], 167, cm, 08/21/23 14:00:00 EDT, Height/Length [...] she notice (more content not included)... Normal [facility] Comment on above: Result Comment: Elec [...] these instructions at home: Medicines ? Take ttxf-rnz-hwxtwhk and prescription medicines only as told by [...] Take good care of your mouth: ? [place] your teeth at least two times a [...] provider. Document Revised: 03/01/2022 Document Reviewed: 03/01/2022 [employer] Patient Education ? 2022 [employer]. Sinus Infection, Adult A sinus infection, also called sinusitis, is inflammation of your sinuses. Sinuses are hollow spaces in the bones around your face. Your sinuses are located: ? Around your eyes. ? In the middle of your forehead. ? Behind your nose. ? In your cheekbones. Mucus normally drains out of your sinuses. When your na (more content not included)... Normal [facility] Reference Laboratory Testing Ordered By: Hardide [employer]atings DomainUser on 11-23-2021 SARS-CoV-2 (COVID-19) RNA JUNAID+probe Ql (Resp) Not detected Invalid Interpretation Code Not Detected [facility] [employer] Comment on above: Result Comment: This nucleic acid amplification test was developed and its performance characteristics determined by [employer]. Nucleic acid amplification tests include RT-PCR and [...] detected) result in this assay. Performed at: [address] [id number] PhD Zhang Padron 06-17-2017 CNOV Office Visit (NEUSFT) BENNYVICKIE ([id number]) 1955 [facility] Time Provider Department06/17/17 12:50 PM RUBENS SWARTZ During your visit today, we recorded the following information about you: Pulse Respiration Blood pressure Weight 83/minute 20/minute 135/79 99.8 kg Height 1.676 Evangelina Swartz MD 06/17/2017 2:02 PM [facility] SURGERY OUTPATIENT CONSULTSERVICE DATE: 06/17/2017PCP: Camryn Barbosa, [id number] [facility] [id number] PROVIDER:Brea Layton requested for an opinion regarding the evaluation and treatment ofMelba Zapata. My final impression and recommendations will be communicatedback to the requesting physician by way of the shared medical record or lettervia US mail.SUBJECTIVEMelba Zapata is a 62 year old female presenting alone. 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[employer].CHIEF COMPLAINT: Right arm [...] Ratio: RIGHT ARMDERMATOMAL DISTRIBUTION:Right: C6, C7 and M1HYFIDUOMXM STATUS: AT LEAST 1 -2 MILESSTANDING UPRIGHT: [...] Wt 99.8 kg (220 lb) BMI 35.51 kg/t9QXFFYBG APPEARANCE: Well nourished, well developed, and no [...] SignedCERVICAL DISC HERNIATION/STENOSISReferr ing Provider: CAMRYN BARBOSA [[id number]]Allergies As of Date: 06/17/2017 Noted Allergy ReactionIODINE [...] Shoulder impingement, right [M75.41]Order(s):XR CERVICAL OBLIQUES ONLY [[id number]] Order #: [id number] FUTURE XR CERVICAL 3VIEW/FLEX/EXT [[id number]] Order #: [id number] FUTUREPrescriptions as of 06/17/2017 Sig: BUPROPION HCL [...] to improve.Follow-up and Disposition History RecordedEncounter Number: [id number] Status:Closed by RUBENS SWARTZ MD on 06/17/17 [facility] PROGRESSon 06-17-2017 PROGRESS HNO ID: [id number] thor: Rubens SwartzService: (none)Author Type: PhysicianType: Progress NotesFiled: 06/17/2017 2:02 PMNote Text:SPINE SURGERY OUTPATIENT CONSULTSERVICE DATE: 06/17/2017PCP: Camryn Barbosa, [id number] [facility] [id number] PROVIDER:Brea Layton requested for an opinion regarding the evaluation and treatmentof Melba Zapata. My final impression and recommendations will becommunicated back to the requesting physician by way of the shared medicalrecord or letter via US mail.Sunita Zapata is a 62 year old female presenting alone. 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 He then referred the patient to [facility] further assessment.PAIN EVALUATION 06/17/2017 Pain Score: 8 Pain Location: Arm-Right Description: Numbness Duration Amount of Time: 4 Duration Units: Months Frequency: Continuous Intervention: Medication;RepositionPain Radiation: Right shoulder into the right hand involving all digitsAggravating Factors: reaching, pulling, lifting, usage of the right arm,doing hair and make upAlleviating Factors: nothingPain Ratio: RIGHT ARMDERMATOMAL DISTRIBUTION:Right: C6, C7 and [id number] STATUS: AT LEAST 1 -2 MILESSTANDING UPRIGHT: [...] Wt 99.8 kg (220 lb) BMI 35.51 kg/i1GHQKJDJ APPEARANCE: Well nourished, well developed, and no [...] status.SIGNATURE: Rubens Swartz MD PATIENT NAME: Melba Riley: June 17, 2017 : 12:56 PM PAGER: Normal [facility] Vital Signs Date Time Vital Sign Value Performing Clinician Facility 06-04-2024 08:21-0400 Diastolic blood pressure 71 mm[Hg] Aakash Levy [facility] 06-04-2024 08:21-0400 Heart rate 72 /min Aakash Levy [facility] 06-04-2024 08:21-0400 Systolic blood pressure 103 mm[Hg] Aakash Levy [facility] 05-27-2024 09:00-0400 Diastolic blood pressure 83 mm[Hg] Tony Edmondson [facility] 05-27-2024 09:00-0400 Heart rate 71 /min Tony Edmondson [facility] 05-27-2024 09:00-0400 Mean blood pressure 102 mm[Hg] Tony Edmondson [facility] 05-27-2024 09:00-0400 Respiratory rate 20 /min Tony Edmondson [facility] 05-27-2024 09:00-0400 SaO2% (BldA) [Mass fraction] 97 % Tony Edmondson [facility] 05-27-2024 09:00-0400 Systolic blood pressure 139 mm[Hg] Tony Edmondson [facility] 05-27-2024 07:00-0400 Diastolic blood pressure 69 mm[Hg] Tony Edmondson [facility] 05-27-2024 07:00-0400 Heart rate 66 /min Tony Delvis [facility] 05-27-2024 07:00-0400 Mean blood pressure 86 mm[Hg] Tony Delvis [facility] 05-27-2024 07:00-0400 Respiratory rate 13 /min Tony Delvis [facility] 05-27-2024 07:00-0400 SaO2% (BldA) [Mass fraction] 96 % Tony Delvis [facility] 05-27-2024 07:00-0400 Systolic blood pressure 120 mm[Hg] Tony Delvis [facility] 05-27-2024 06:52-0400 Diastolic blood pressure 75 mm[Hg] Tony Delvis [facility] 05-27-2024 06:52-0400 Heart rate 60 /min Tony Delvis [facility] 05-27-2024 06:52-0400 Mean blood pressure 90 mm[Hg] Tony Delvis [facility] 05-27-2024 06:52-0400 Respiratory rate 11 /min Tony Delvis [facility] 05-27-2024 06:52-0400 Systolic blood pressure 119 mm[Hg] Tony Delvis [facility] 05-27-2024 05:38-0400 SaO2% (BldA) [Mass fraction] 98 % Tony Delvis [facility] 05-26-2024 18:30-0400 Hourly Rounding Tony Delvis [facility] 05-26-2024 18:30-0400 Promise to Return Tony Delvis [facility] 05-26-2024 17:40-0400 Hourly Rounding Tony Edmondson [facility] 05-26-2024 17:40-0400 Promise to Return Tony Edmondson [facility] 05-26-2024 16:23-0400 Hourly Rounding Tony Edmondson [facility] 05-26-2024 16:23-0400 Promise to Return Tony Edmondson [facility] 05-26-2024 12:44-0400 Body temperature 98.96 [degF] Tony Edmondson [facility] 05-26-2024 12:44-0400 Heart rate 74 /min Tony Edmondson [facility] 05-26-2024 12:44-0400 Respiratory rate 18 /min Tony Edmondson [facility] 05-26-2024 10:41-0400 Heart rate 73 /min Aakash Levy [facility] 05-26-2024 10:41-0400 SaO2% (BldA) [Mass fraction] 92 % Aakash Hollidayy [facility] 05-26-2024 10:40-0400 Diastolic blood pressure 67 mm[Hg] Aakash Mourany [facility] 05-26-2024 10:40-0400 Mean blood pressure 79 mm[Hg] Aakash Mourany [facility] 05-26-2024 10:40-0400 Systolic blood pressure 102 mm[Hg] Aakash Mourany [facility] 05-26-2024 09:51-0400 Heart rate 69 /min Aakash Hollidayy [facility] 05-26-2024 09:51-0400 SaO2% (BldA) [Mass fraction] 93 % Aakash Mourany [facility] 05-26-2024 09:49-0400 Diastolic blood pressure 70 mm[Hg] Aakash Mourany [facility] 05-26-2024 09:49-0400 Mean blood pressure 82 mm[Hg] Aakash Mourany [facility] 05-26-2024 09:49-0400 Systolic blood pressure 106 mm[Hg] Aakash Mourany [facility] 05-26-2024 09:49-0400 Respiratory rate 18 /min Aakash Mourany [facility] 05-26-2024 09:40-0400 Blood Pressure Location Aakash Mourany [facility] 05-26-2024 09:40-0400 Body temperature 98.06 [degF] Aakash Mourany [facility] 05-26-2024 09:40-0400 Diastolic blood pressure 71 mm[Hg] Aakash Mourany [facility] 05-26-2024 09:40-0400 Heart rate 53 /min Aakash Mourany [facility] 05-26-2024 09:40-0400 Mean blood pressure 94 mm[Hg] Aakash Mourany [facility] 05-26-2024 09:40-0400 Respiratory rate 20 /min Aakash Mourany [facility] 05-26-2024 09:40-0400 SaO2% (BldA) [Mass fraction] 93 % Aakash Mourany [facility] 05-26-2024 09:40-0400 Systolic blood pressure 140 mm[Hg] Aakash Mourany [facility] 05-26-2024 09:25-0400 Blood Pressure Location Aakash Mourany [facility] 05-26-2024 09:25-0400 Mean blood pressure 83 mm[Hg] Aakash Mourany [facility] 05-26-2024 09:25-0400 Respiratory rate 11 /min Aakash Mourany [facility] 05-26-2024 09:10-0400 Blood Pressure Location Aakash Mourany [facility] 05-26-2024 09:10-0400 Mean blood pressure 78 mm[Hg] Aakash Mourany [facility] 05-26-2024 09:10-0400 Respiratory rate 18 /min Aakash Mourany [facility] 05-26-2024 08:53-0400 Body temperature 97.88 [degF] Aakash Mourany [facility] 05-26-2024 08:50-0400 FIO2 100 1 Aakash Mourany [facility] 05-26-2024 08:50-0400 Respiratory rate 1 /min Aakash Mourany [facility] 05-26-2024 08:45-0400 FIO2 100 1 Aakash Mourany [facility] 05-26-2024 08:45-0400 Respiratory rate 21 /min Aakash Mourany [facility] 05-26-2024 08:40-0400 FIO2 100 1 Aakash Mourany [facility] 05-26-2024 06:13-0400 Mean blood pressure 101 mm[Hg] Aakash Mourany [facility] 05-26-2024 06:11-0400 Body temperature 97.7 [degF] Aakash Mourany [facility] 05-26-2024 06:11-0400 Heart rate 72 /min Aakash Warrenurany [facility] 04-27-2024 14:25-0400 Diastolic blood pressure 82 mm[Hg] Aakash Mourany [facility] [place] 04-27-2024 14:25-0400 Heart rate 92 /min Aakash Warrenurany [facility] [place] 04-27-2024 14:25-0400 Systolic blood pressure 128 mm[Hg] Aakash Warrenurany [facility] [place] 04-14-2024 13:49-0400 Blood Pressure Location Beatrice Barnes [facility] 04-14-2024 13:49-0400 Body temperature 98.06 [degF] Beatrice Barnes [facility] 04-14-2024 13:49-0400 Diastolic blood pressure 82 mm[Hg] Beatrice Barnes [facility] 04-14-2024 13:49-0400 Heart rate 81 /min Beatrice Barnes [facility] 04-14-2024 13:49-0400 Respiratory rate 18 /min Beatrice Barnes [facility] 04-14-2024 13:49-0400 SaO2% (BldA) [Mass fraction] 97 % Beatrice Barnes [facility] 04-14-2024 13:49-0400 Systolic blood pressure 138 mm[Hg] Beatrice Barnes [facility] 03-19-2024 14:55-0400 Blood Pressure Location Beatrice Barnes [facility] 03-19-2024 14:55-0400 Body temperature 97.7 [degF] Beatrice Barnes [facility] 03-19-2024 14:55-0400 Diastolic blood pressure 98 mm[Hg] Beatrice Barnes [facility] 03-19-2024 14:55-0400 Heart rate 79 /min Beatrice Barnes [facility] 03-19-2024 14:55-0400 Respiratory rate 18 /min Beatrice Barnes [facility] 03-19-2024 14:55-0400 SaO2% (BldA) [Mass fraction] 97 % Beatrice Barnes [facility] 03-19-2024 14:55-0400 Systolic blood pressure 146 mm[Hg] Beatrice Barnes [facility] 12-10-2023 16:27-0500 Blood Pressure Location Beatrice Barnes [facility] 12-10-2023 16:27-0500 Body temperature 97.7 [degF] Beatrice Barnes [facility] 12-10-2023 16:27-0500 Diastolic blood pressure 80 mm[Hg] Beatrice Barnes [facility] 12-10-2023 16:27-0500 Heart rate 72 /min Beatrice Barnes [facility] 12-10-2023 16:27-0500 Respiratory rate 18 /min Beatriceguillermo Barnes [facility] 12-10-2023 16:27-0500 SaO2% (BldA) [Mass fraction] 94 % Beatrice Barnes [facility] 12-10-2023 16:27-0500 Systolic blood pressure 136 mm[Hg] Beatricebebeto Barnes [facility] 10-30-2023 14:19-0500 Blood Pressure Location Miguel Gudimella [facility] 10-30-2023 14:19-0500 Body temperature 98.42 [degF] Miguel Gudimella [facility] 10-30-2023 14:19-0500 Diastolic blood pressure 86 mm[Hg] Miguel Gudimella [facility] 10-30-2023 14:19-0500 Heart rate 74 /min Miguel Gudimella [facility] 10-30-2023 14:19-0500 SaO2% (BldA) [Mass fraction] 95 % Miguel Gudimella [facility] 10-30-2023 14:19-0500 Systolic blood pressure 130 mm[Hg] Miguel Gudimella [facility] 08-21-2023 13:55-0400 Blood Pressure Location Rai Gordillo [facility] 08-21-2023 13:55-0400 Body temperature 97.7 [degF] Rai Gordillo [facility] 08-21-2023 13:55-0400 Diastolic blood pressure 78 mm[Hg] Rai Gordillo [facility] 08-21-2023 13:55-0400 Heart rate 48 /min Rai Gordillo [facility] 08-21-2023 13:55-0400 SaO2% (BldA) [Mass fraction] 95 % Rai Gordillo [facility] 08-21-2023 13:55-0400 Systolic blood pressure 124 mm[Hg] Rai Gordillo [facility] 10-21-2022 13:40-0500 Blood Pressure Location Miguel Gudimella [facility] 10-21-2022 13:40-0500 Body temperature 97.52 [degF] Miguel Gudimella [facility] 10-21-2022 13:40-0500 Diastolic blood pressure 78 mm[Hg] Miguel Gudimella [facility] 10-21-2022 13:40-0500 Heart rate 74 /min Miguel Gudimella [facility] 10-21-2022 13:40-0500 Respiratory rate 18 /min Miguel Gudimella [facility] 10-21-2022 13:40-0500 SaO2% (BldA) [Mass fraction] 97 % Miguel Gudimella [facility] 10-21-2022 13:40-0500 Systolic blood pressure 128 mm[Hg] Miguel Gudimella [facility] [place] 04-18-2022 15:36-0400 Blood Pressure Location Marthajojo Hathaway [facility] 04-18-2022 15:36-0400 Body temperature 98.24 [degF] Martha Hathaway [facility] 04-18-2022 15:36-0400 Diastolic blood pressure 80 mm[Hg] Martha Hathaway [facility] 04-18-2022 15:36-0400 Heart rate 81 /min Martha Hathaway [facility] 04-18-2022 15:36-0400 SaO2% (BldA) [Mass fraction] 97 % Marthajojo Arellanoell [facility] 04-18-2022 15:36-0400 Systolic blood pressure 136 mm[Hg] Martha Hathaway [facility] Encounters Encounter Date Encounter Type Care Provider Facility Start: 09-15-2024 ambulatory Lucinda M. Doriee Facility:C D:[id number] Start: 08-23-2024 End: 08-23-2024 ambulatory Lucinda M. Lue Facility:[facility] Start: 08-23-2024 End: 08-23-2024 Patient encounter procedure Lucinda M. Doriee [facility] Start: 08-19-2024 End: 08-19-2024 ambulatory Lucinda M. Lue Facility:[facility] Start: 08-19-2024 End: 08-19-2024 Patient encounter procedure Lucinda M. Doriee [facility] Start: 08-18-2024 End: 08-18-2024 ambulatory Lucinda Jin Facility:[facility] Start: 08-18-2024 End: 08-18-2024 Patient encounter procedure Lucinda Jin [facility] Start: 07-15-2024 ambulatory Beatrice Barnes Facil ity:[facility] Start: 07-13-2024 ambulatory Miguel Wilbert Facilit y:[facility] Start: 07-12-2024 ambulatory Antonio Rosei ty:[facility] Start: 06-29-2024 End: 06-29-2024 ambulatory [facility] Start: 06-07-2024 End: 06-07-2024 ambulatory [facility] Start: 06-04-2024 End: 06-04-2024 ambulatory Aakash Levy Facility:[facility] Start: 06-04-2024 End: 06-04-2024 Patient encounter procedure Aakash Levy [facility] [place] Start: 05-29-2024 Evaluation and manag ement of inpatient [facility] Start: 05-29-2024 Evaluation and manag ement of inpatient NUPUR SADIE [facility] Start: 05-28-2024 Evaluation and manag ement of inpatient [facility] Start: 05-27-2024 Evaluation and manag ement of inpatient OPAL COLEMAN [facility] Start: 05-27-2024 End: 05-29-2024 Evaluation and management of inpatient UNKNOWN UNKNOWN [facility] Start: 05-26-2024 End: 05-27-2024 Emergency department patient visit Tony Edmondson [facility] Start: 05-26-2024 End: 05-26-2024 Admission to same day surgery center Aakash Levy [facility] Start: 05-26-2024 End: 05-26-2024 ambulatory Aakash Levy Facility:[facility] Start: 05-14-2024 End: 05-14-2024 ambulatory [facility] Start: 05-14-2024 End: 05-14-2024 Encounter for preprocedural cardiovascular examination [facility] Start: 04-27-2024 End: 04-27-2024 ambulatory Beatrice Barnes Facility: [facility] Start: 04-27-2024 End: 04-27-2024 Patient encounter procedure Aakash Levy [facility] [place] Start: 04-21-2024 End: 04-21-2024 ambulatory Beatrice Barnes Facility:[facility] Start: 04-21-2024 End: 04-21-2024 Patient encounter procedure Beatrice Barnes [facility] Start: 04-15-2024 ambulatory Beatrice Barnes Facilit y: [place] Start: 04-14-2024 End: 04-14-2024 ambulatory Beatrice Barnes Facility:[facility] Start: 04-14-2024 End: 04-14-2024 Patient encounter procedure Beatrice Barnes [facility] Start: 04-07-2024 ambulatory Beatrice Barnes Facilit y:[facility] Start: 04-02-2024 End: 04-02-2024 ambulatory Beatrice Barnes Facility:[facility] Start: 04-02-2024 End: 04-02-2024 Patient encounter procedure Beatrice Barnes [facility] Start: 03-19-2024 End: 03-19-2024 ambulatory Beatrice Barnes Facility:[facility] Start: 03-19-2024 End: 03-19-2024 Patient encounter procedure Beatrice Barnes [facility] Start: 01-21-2024 ambulatory Beatrice Barnes Facil ity:[facility] Start: 12-11-2023 End: 12-23-2023 Pre-admission assessment Beatrice Barnes [facility] Start: 12-10-2023 End: 12-10-2023 ambulatory Beatrice Barnes Facility:[facility] Start: 12-10-2023 End: 12-10-2023 Patient encounter procedure Beatrice Barnes [facility] Start: 12-10-2023 End: 12-10-2023 Well adult monitoring check done Beatrice Barnes [facility] Start: 11-10-2023 End: 05-02-2024 ambulatory Gilbert Fisher Pocos Facility:[facility] Start: 10-30-2023 End: 10-30-2023 ambulatory Miguel Gudimella Facility:[facility] Start: 10-30-2023 End: 10-30-2023 Encounter for general adult medical examination with abnormal findings Miguel Gudimella [facility] Start: 10-30-2023 End: 10-30-2023 Patient encounter procedure Miguel Gudimella [facility] Start: 10-22-2023 ambulatory Miguel Atkins Facilit y:[facility] Start: 10-03-2023 End: 10-03-2023 ambulatory [facility] Start: 10-02-2023 End: 10-02-2023 [facility] Start: 09-30-2023 ambulatory [facility] Start: 09-10-2023 End: 09-10-2023 ambulatory Ricki HOMESTEAD Facility:[facility] Start: 09-10-2023 End: 09-10-2023 Emergency department patient visit Som Willis Facility:[facility] Start: 08-21-2023 End: 08-21-2023 ambulatory Rai Gordillo Facility:[facility] Start: 08-21-2023 End: 08-21-2023 Patient encounter procedure Rai Gordillo [facility] Start: 10-21-2022 End: 10-21-2022 Patient encounter procedure Miguel Atkins [facility] [place] Start: 05-08-2022 End: 05-09-[address] DENIA JOHNS Facility: Start: 04-18-2022 End: 04-18-2022 Patient encounter procedure Martha Hathaway [facility] Start: 11-23-2021 End: 2022 Patient encounter procedure Martha Hathaway [facility] Start: 06-17-2017 End: 06-17-2017 Ambulatory RUBENS [...] Start: 08-31-2019 Total replacement of hip Martha Arellanoell Comment on above: Left Start: 05-18-2019 Epidural injection o f cervical spine using fluoroscopic guidance Martha Arellanoell Comment on above: 90% pain relief C7-T1 COLIN 90% relief that continues Start: 04-01-2019 cysto, left stent removal Martha Arellanoell Start: 03-22-2019 cysto, stone extract ion, left stent placement Martha Hathaway Start: 03-22-2019 CYSTOSCOPY, LEFT RET ROGRADE, STONE EXTRACTION WITH BASKET , LEFT URETERAL STENT INSERTION Martha Hathaway Start: 12-24-2018 Hammer toe operation Ka sylvie Hathaway Comment on above: RIGHT SECOND DIGIT [...] of hip usi ng fluoroscopic guidance Martha Arellanoell Comment on above: left hip injection 6 [...] Dr. Ruvalcaba May 2009 Colonoscopy 13 Aakash Kelvintracy Comment on above: Dr. Ruvalcaba May 2009 Cystopexy Martha Hathaway Comment on above: 1997 Excision of cyst of ovary Aquiles Hathaway Lithotripsy Martha Hathaway Other bilateral liga tion and division of fallopian tubes Martha Hathaway Immunizations Immunization Date Immunization Notes Care Provider Fa maría 04-14-2024 tetanus toxoid, redu ni diphtheria toxoid, and acellular pertussis vaccine, adsorbed; Translations: [Boostrix (Tdap)] Beatrice Barnes [facility] Comment on above: Result Comment: Lot: [id number] Expiration date: 06/11/2026 Unable to add lot number 10-30-2023 pneumococcal polysaccharide vaccine, 23 valent Miguel Wattsla [facility] 08-12-2023 influenza virus vaccine, unspecified formulation Rai Gordillo [facility] 10-02-2021 pneumococcal conjuga te vaccine, 13 valent Martha Hathaway [facility] 10-02-2021 influenza, high dose seasonal, preservative-free Martha Hathaway [facility] 02-02-2021 COVID-19, mRNA, LNP- S, PF, 30 mcg/0.3 mL dose; Translations: [Pfizer-BioNTech COVID-19 Vaccine] Martha Hathaway [facility] Comment on above: Reason for Medicatio n: Prophylaxis 01-12-2021 COVID-19, mRNA, LNP- S, PF, 30 mcg/0.3 mL dose; Translations: [Pfizer-BioNTech COVID-19 Vaccine] Martha Hathaway [facility] Comment on above: Reason for Medicatio n: Prophylaxis 08-10-2020 influenza virus vaccine, unspecified formulation Martha Hathaway [facility] 09-03-2018 influenza virus vaccine, unspecified formulation Martha Hathaway [facility] NEGATED: Highlighted row has not occurred!10-21-2022 influenza virus vaccine, unspecified formulation Miguel Atkins [facility] Payers Date Payer Category Payer Unknown [id number] 2023 Worker's Compensation [id number] 2023 Worker's Compensation [id number] 1959 Medicare [id number] 1959 Unknown [id number] 1955 Unknown [id number] 2.16.84 0.1.196597.3.579.2.593 1955 Unknown [id number] 2.16.8 40.1.596480.3.579.2.174 1955 Unknown [id number] 2.16.8 40.1.096364.3.579.2.727 1955 Unknown [id number] 2.16.8 40.1.076634.3.579.2.727 1955 Unknown [id number] 2.16.8 40.1.790298.3.579.2.727 1955 Unknown [id number] 2.16.8 40.1.983911.3.579.2.727 1955 Unknown [id number] 2.16.8 40.1.168142.3.579.2.727 1955 Unknown [id number] 2.16.8 40.1.246115.3.579.2.727 1955 Unknown [id number] 2.16.8 40.1.778762.3.579.2.727 1955 Unknown [id number] 2.16.8 40.1.101156.3.579.2.727 1955 Unknown [id number] 2.16.8 40.1.413164.3.579.2.727 1955 Unknown [id number] 2.16.8 40.1.814209.3.579.2.727 1955 Unknown [id number] 2.16.8 40.1.312430.3.579.2.727 1955 Unknown [id number] 2.16.8 40.1.936073.3.579.2.727 1955 Unknown [id number] 2.16.8 40.1.488582.3.579.2.727 1955 Unknown [id number] 2.16.8 40.1.814258.3.579.2.727 1955 Unknown [id number] 2.16.8 40.1.784776.3.579.2.727 1955 Unknown [id number] 2.16.8 40.1.214946.3.579.2.727 1955 Unknown [id number] 2.16.8 40.1.215407.3.579.2.727 1955 Unknown [id number] 2.16.8 40.1.153446.3.579.2.727 1955 Unknown [id number] 2.16.8 40.1.345584.3.579.2.727 1955 Unknown [id number] 2.16.8 40.1.796098.3.579.2.727 1955 Unknown [id number] 2.16.8 40.1.651728.3.579.2.727 1955 Unknown [id number] 2.16.8 40.1.743200.3.579.2.727 1955 Unknown [id number] 2.16.8 40.1.522773.3.579.2.727 Social History Date Type Detail Facility Start: 10-02-2021 End: 12-10-2023 Tobacco smoking status Heavy tobacco smoker (finding) [facility] Comment on above: smokes 1/2 PPD smokes .5 PPD, start ed at age age 22 Tobacco smoking status Never [facility] Comment on above: smokes 1/2 PPD smokes .5 PPD, start ed at age age 22 Patient states she s mokes around 2 cigarettes a day Sex Assigned At Female [facility] Start: 03-19-2024 End: 08-19-2024 Tobacco smoking status Light tobacco smoker (finding) [facility] Comment on above: smokes .5 PPD, start ed at age age 22 smokes 1/2 PPD Patient states she s mokes around 2 cigarettes a day Medical Equipment Procedure Code Equipment Code Equipment Origin al Text Equipment Identifier Dates FDA Start: 03-22-2019 FDA Start: 09-28-2019 [id number] FDA Start: 10-12-2019 CYSTOSCOPY RETRO GRADE STENT INSERTION Luis Ibarra [...] Start: 09-28-2019 CYSTOSCOPY RETRO GRADE STENT INSERTION Frde Bonilla MD, Luis Valdez 03/22/19 Unknown Vagina [...] 08-19-2024 Functional Status N/A [facility] 05-26-2024 Functional Status N/A [facility] 05-26-2024 Functional Status No [facility] 04-14-2024 Functional Status N/A [facility] 03-19-2024 Functional Status N/A [facility] 12-10-2023 Functional Status N/A [facility] 10-30-2023 Functional Status N/A [facility] 08-21-2023 Functional Status N/A [facility] 10-21-2022 Functional Status N/A [facility] [place] 04-18-2022 Functional Status N/A [facility] Clinical Notes 04-18-2022 to [...] include: ?8 oz (237 mL) of milk, tzanvjt-jcfcemvtgrzl-rmlei milk, and calcium-fortifiedfruit juice. Calcium-fortified means that [...] ?Spinach (cooked), rhubarb, beets, sweet potatoes, and Sierra Leonean chard. ?Peanuts. ?Potato chips, ukrainian fries, and baked potatoes with skin on. ?Nuts and nut products. ?Chocolate. If you regularly take a diuretic medicine, make sure to eat at least 1 or 2 servings of fruits or vegetables that are high in potassium each day. These include: ?Avocado. ?Banana. ?[place], prune, carrot, or tomato juice. ?Baked potato. [...] magnesium, fish oil, or vitamin B6. Take twrj-bft-temyvyl and prescription medicines only as told by [...] Casseroles. Pizza. Lasagna. Frozen meals. Potato chips. Puerto Rican fries. The items listed above may not [...] provider. Document Revised: 01/30/2023 Document Reviewed: 01/30/2023 Elsevier Patient Education 2023 [employer]. 08/19/2024 09:23:30 Ureteroscopy Ureteroscopy Ureteroscopy is a [...] including vitamins, herbs, eye drops, creams, and ppbq-tmv-ewhevhu medicines. Any problems you or family members [...] health care provider tells you to. Taking nucx-nos-dlrewxt medicines, vitamins, herbs, and supplements. General instructions [...] provider. Document Revised: 09/22/2023 Document Reviewed: 09/22/2023 [employer] Patient Education 2023 [employer]. Follow Up Care 06/04/2024 15:39:21 With:Davin CONSTANTINO, SOWMYA Apodaca, URO Address: When: Unknown [facility] 08-19-2024 Note Patient Education Nephrology Dietary Guidelines [...] ? 8 oz (237 mL) of milk, tfpupwh-kyeopqnocgxt-scfiu milk, and calcium-fortifiedfruit juice. Calcium-fortified means that [...] Spinach (cooked), rhubarb, beets, sweet potatoes, and [place] Leonean chard. ? Peanuts. ? Potato chips, ukrainian fries, and baked potatoes with skin on. ? Nuts and nut products. ? Chocolate. ? If you regularly take a diuretic medicine, make sure to eat at least 1 or 2 servings of fruits or vegetables that are high in potassium each day. These include: ? Avocado. ? Banana. ? [place], prune, carrot, or tomato juice. ? Baked [...] fish oil, or vitamin B6. ? Take grtp-jdt-sljtwln and prescription medicines only as told by your health care provider. These include suppleme (more content not included)... [facility] 06-29-2024 Note [place] Electrophysiology Consult Note [place] Cardiology - [facility] Reason for visit: s/p PPM [...] she came for a device check at [facility], she was noted to have sinus rhythm with [place] conduction with a prolonged MD intervl. When the patient was asked to [...] Year: No Utilities: Not At Risk (05/27/2024) [facility] Utilities Threatened with loss of utilities: No [...] morning. Do not crush or chew. HYDROcodone-acetaminophen ([place]) 5-325 mg tablet Take 1 tablet by [...] Physical Exam: Cons (more content not included)... [facility] 06-07-2024 Note [facility] Cardiology Clinic Note Chief Complaint: Patient here [...] crush or chew., Disp: , Rfl: HYDROcodone-acetaminophen ([place]) 5-325 mg tablet, Take 1 tablet by [...] as scheduled. 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 [facility] 05-29-2024 Note 1215 Patient has discharge order in place. No order for PT placed at this time. Waiting to see OT. No wound care discovered at this time. Sent message to [facility] to confirm if patient should wait to see OT or if they are good to discharge without seeing OT, awaiting response. Barriers: -OT recs [facility] 05-29-2024 Note Cardiology Progress Note Subjective Subjective: [...] Value Ventricular Rate 64 Atrial Rate 64 MD Interval 348 QRS DURATION 100 QT Interval 426 QTC CALCULATION(BAZETT) 439 P Alma 63 R-Alma 40 T Wave Alma 54 Impression Sinus rhythm with 1st degree [...] Value Ventricular Rate 76 Atrial Rate 76 MD Interval 208 QRS DURATION 186 QT Interval 484 QTC CALCULATION(BAZETT) 544 P Alma 54 R-Alma -47 T Wave Alma 102 Impression Atrial-sensed ventricular-paced rhythm Abnormal ECG When compared with ECG of 28-MAY-2024 07:14, Electronic ventricular pacemaker has replaced Sinus rhythm Transthoracic echo (TTE) limited Result Date: 05/27/2024 1 1 [facility] Heart Station [address] [place] [address] [phone] (fax) Echocardiogram-[facility] Name: MELBA ZAPATA Study Date: 05/27/2024 03:03 PM B/P: 153 mmHg/81 mmHg HR: Date of : 1955 Location: [facility] Height: 66 in. Age: 69 year(s) [...] IVC: The in (more content not included)... [facility] 05-28-2024 Note Indications for perm anent pacemaker [...] of the upper extremity Nupur Mckay M.D. [facility] Academic Affairs Managerresearch manager and Pediatrics Director: Cardiac Electrophysiology Program [facility] 05-28-2024 Note Attestation signed by Dianne Benson [...] today. Hopefully home tomorrow Dianne Benson MD, [facility] Cardiology Progress Note Subjective Subjective: Melba [...] Value Ventricular Rate 64 Atrial Rate 64 MD Interval 348 QRS DURATION 100 QT Interval 426 QTC CALCULATION(BAZETT) 439 P Alma 63 R-Alma 40 T Wave Alma 54 Impression Sinus rhythm with 1st degree A-V block Cannot rule out Inferior infarct , age undetermined Abnormal ECG When compared with ECG of 27-MAY-2024 12:38, (unconfirmed) Minimal criteria for Inferior infarct is now Present Confirmed by Miguel A SANCHEZ, L.S. (2) on 05/28/2024 12:17:41 PM Lab Results Component Value Date TROPONINI 0.00 05/27/2024 Transthoracic echo (TTE) limited Result Date: 05/27/2024 1 1 [facility] Heart Station [address] [place] [address] [phone] (fax) Echocardiogram-[facility] Name: MELBA ZAPATA Study Date: 05/27/2024 03:03 PM B/P: 153 mmHg/81 mmHg HR: Date of : 1955 Location: [facility] Height: 66 in. Age: 69 year(s) [...] Doppler studies sug (more content not included)... [facility] 05-28-2024 Note Hospital Medicine Daily Progress Note - 05/28/2024 12:57 PM; Room: [address] [place] [address] Admission: 05/27/2024 11:02 AM; Length of stay: 1 days THE HOSPITALIST TEAM PREFERS TO USE K[employer]ang FOR COMMUNICATION 7AM-7PM. IF I DO NOT RESPOND WITHIN 15 MINUTES, PLEASE PAGE ME/CALL THROUGH THE CELL MANAGER. FROM 7PM-7AM, PLEASE PAGE [phone](COVR) Code Status: Full Code Barriers to Discharge: [...] not have recordings from her monitor in [facility] or during the surgery. - Continue to monitor rhythm. I think we should obtain the rhythm strips from [facility] and review to confirm that she had second-degree AV block with significant bradycardia as reported. Essential hypertension Continue hydrochlorothiazide, lisinopril Gallstones s/p cholecystectomy 05/22/2024 Tylenol for mild pain, [place] for severe pain Current smoker Nicotine patch [...] TSH 0.43 05/27/2024 No results found for: [id number] , IRON , TIBC , C3 , [...] infarct is now (more content not included)... [facility] 05-27-2024 Note Case was discussed w appCREAR the LISA on 05/27/2024. I agree with the history, physical, assessment, and plan of care. I discussed the findings and therapeutic plan. I agree with the documentation, except for any updates below. Carlos Villarreal MD [facility] 05-27-2024 Note 05/27/24 1426 Admission Assessment Questions [...] Status Interested Does the patient have a child welfare caseworker assigned to them through their insurance? No Living Arrangement (Current/Prior to Hospitalization) Private residence (live alone, 10 steps it get in, one story after that) Does the patient have history of HHC or SNF? Yes (HHC, [facility]hc not active) Assistive Device Not applicable [...] to send link and activate MyChart? Yes [facility] 05-27-2024 Note Hospital Medicine History and Physical 05/27/2024 2:09 PM THE HOSPITALIST TEAM PREFERS TO USE Ident[employer] CHAT FOR COMMUNICATION 7AM-7PM. IF I DO NOT RESPOND WITHIN 15 MINUTES, PLEASE PAGE ME/CALL THROUGH THE CELL MANAGER. FROM 7PM-7AM, PLEASE PAGE [phone](COVR) Chief Complaint No chief complaint on file. History of Present Illness Melba Zapata is an 69 y.o. female who came from [facility] with concerns for complete heart block. Patient reports this all started when she had broken her wrist, she had EKG done at that time which showed an abnormality leading her to have an echocardiogram done With our cardiology team in [place]. During her appointment to go over her echo results which were normal, her EKG showed that she was in a heart block, so she was prescribed a Holter monitor. Yesterday she presented to [facility] for a planned cholecystectomy 2/2 gallstones. During the procedure it was reported that they had to give her atropine due to low heart rates. Her physician there then received a call with results of her Holter monitor saying that there were signs of complete heart block and requested transfer to [facility] for evaluation by our electrophysiology service. [...] multiple sites 02/11/2014 (more content not included)... [facility] 05-27-2024 Note Progress Note-Physic rodrigo Patient: MELBA [...] when meets criteria ( To home ). [facility] Comment on above: Result Comment: Elec tronically [...] Problems Vitamin D deficiency / SNOMED CT 95103252 / Confirmed Urinary urgency / SNOMED CT 461665528 / Confirmed Urge incontinence / SNOMED CT 408371240 / Confirmed Smoker / SNOMED CT 429053812 / Confirmed Class 3 severe obesity with serious comorbidity in adult / SNOMED CT 6219080163 / Confirmed Added per Anali Barnes query response, per outpatient CDI policy. Need for tetanus booster / SNOMED CT 9279253800 / Confirmed Major depressive disorder, recurrent, mild / SNOMED CT 734676633 / Confirmed Added per Anali Barnes query response, per outpatient CDI policy. Emphysema of lung / SNOMED CT [id number] / Confirmed Wellness examination / SNOMED CT 561528029 / Confirmed Screening for breast cancer / SNOMED CT 146286448 / Confirmed Osteopenia / SNOMED CT 517310505 / Confirmed OA (osteoarthritis) of hip / SNOMED CT 350537140 / Confirmed Nocturia / SNOMED CT 917417749 / Confirmed Hyperlipidemia / SNOMED CT 943770886 / Confirmed Kidney stones / SNOMED CT [id number] / Confirmed Hyperglycemia / SNOMED CT 845525062 / Confirmed Hydronephrosis / SNOMED CT 66800200 / Confirmed Hip pain, left / SNOMED CT 11884706 / Confirmed Worsening headaches / SNOMED CT 78999233 / Confirmed Gall stones / SNOMED CT 244810809 / Confirmed Radius fracture / SNOMED CT 05024539 / Confirmed R distal radius fx Fracture of right wrist with routine healing / SNOMED CT 0124154583 / Confirmed Flank pain / SNOMED CT 134918393 / Confirmed Personal history of tobacco use / SNOMED CT 0030758212 / Confirmed Fatigue / SNOMED CT 159960955 / Confirmed FHx: thyroid cancer / SNOMED CT 9329312632 / Confirmed Herniated cervical disc / SNOMED CT 5740469245 / Confirmed Patient had no falls in past year / SNOMED CT 6774423611 / Confirmed Cervical spine degeneration / SNOMED CT 5038052341 / Confirmed BMI 40.0-44.9, adult / SNOMED CT 5834670843 / Confirmed Benign essential HTN / SNOMED CT 3622752 / Confirmed Abrasion, right lower leg, initial encounter / SNOMED CT 9492745024 / Confirmed Resolved: Tobacco abuse / SNOMED CT 443952260 Resolved: Scleroderma / SNOMED CT 758432085 inactive Resolved: Smoker / SNOMED CT 693496571 Added secondary to documentation in Social History. Resolved: Sicca syndrome / SNOMED CT 898208401 Resolved: Sinus congestion / SNOMED CT 667931370 Resolved: BMI 37.0-37.9, adult / SNOMED CT 045002829 Resolved: At risk for falls / SNOMED CT 717122134 Problem added when Risk for Falls Careplan was initiated. Resolved due to patient discharge. Resolved: Asthma / SNOMED CT 542243137 Resolved: Anxiety / SNOMED CT 65860804 Canceled: Urinary urgency / SNOMED CT 851111458 Canceled: Tobacco use disorder / SNOMED CT 319689130 Canceled: Smoker / IMO 026541 Added secondary to documentation in Social History. Canceled: Obesity due to excess calories / SNOMED CT 0208147254 Canceled: Encounter for wellness examination in adult / SNOMED CT 709205278 Canceled: Osteopenia / SNOMED CT 523489707 Canceled: Current smoker on some days / SNOMED CT 1395229139 Canceled: Obesity, Class II, BMI 35-39.9 / SNOMED CT 5590777005 Canceled: Class 1 obesity with body mass index (BMI) of 30.0 to 30.9 in adult / SNOMED CT 1139297091 Canceled: Class 1 obesity with body mass index (BMI) of 34.0 to 34.9 in adult / SNOMED CT 8128056617 Canceled: Obesity due to excess calories / SNOMED CT 2068574338 Canceled: Neck pain on right side / SNOMED CT 809539170 Canceled: Nasal congestion / SNOMED CT 044071101 Canceled: Frequent urination / SNOMED CT 092618105 Canceled: Hydronephrosis due to obstruction of ureter / SNOMED CT 7642388099 Canceled: HTN (hypertension) / SNOMED CT [id number] 8320 Canceled: Hammertoe / SNOMED CT 980715850 Canceled: Gene (more content not included)... [facility] Comment on above: Result Comment: Elec tronically [...] Date:06/04/2024 08:20:00 AM Scheduled Provider:Aakash Levy MD Location:[facility] Appointment Type:GS Post Op 15 Appointment Date:07/12/2024 02:00:00 PM Scheduled Provider:Antonio FUENTES MD Location:[facility] Appointment Type:URO New Patient Appointment Date:07/13/2024 02:30:00 PM Scheduled Provider: Location:[facility] Appointment Type: Medicare Wellness Subsequent Appointment Date:07/15/2024 02:00:00 PM Scheduled Provider:Beatrice Ingram Location:[facility] Appointment Type: Open Future Scheduled Tests Laboratory* Basic Metabolic Panel 04/14/24 Radiology* MA Mamm Screen w/CAD if perf and 3D Jai 12/10/23 [facility] 07-24-2024 Evaluation + Plan noteExtracted from: [...] Date:06/04/2024 08:20:00 AM Scheduled Provider:Aakash Levy MD Location:[facility] Appointment Type:GS Post Op 15 Appointment Date:07/12/2024 02:00:00 PM Scheduled Provider:Antonio FUENTES MD Location:[facility] Appointment Type:URO New Patient Appointment Date:07/13/2024 02:30:00 PM Scheduled Provider: Location:[facility] Appointment Type:FM Medicare Wellness Subsequent Appointment Date:07/15/2024 02:00:00 PM Scheduled Provider:Beatrice Ingram Location:[facility] Appointment Type: Open Future Scheduled Tests Laboratory* Basic Metabolic Panel 04/14/24 Radiology* MA Mamm Screen w/CAD if perf and 3D Jai 12/10/23 [facility] 07-24-2024 Hospital Discharge instructions Patient Education [...] Follow these instructions at home: Medicines Take rgrt-rzn-urnprbl and prescription medicines only as told by [...] to keep your urine pale yellow. ?Take hbbm-zde-wfryase or prescription medicines. ?Eat foods that are [...] and water are not available, use hand mammal keeper. ?Change your dressing as told by your [...] provider. Document Revised: 04/23/2022 Document Reviewed: 04/23/2022 [employer] Patient Education 2022 [employer]. Follow Up Care 04/27/2024 14:52:37 With:Aakash Levy Address: [address], [facility] [address] [address]- [phone] Business (1) When: Unknown Comments:Appointment has already been scheduled [facility] [phone] NoteProvider reviewed event monitor strip with Dr Mateo Mckay in light no response received from Dr Puentes- which may be r/t his schedule/vacation. Dr Mckay states to have pt admitted to [facility] for Third degree heart block. Provider attempted to call pt and went directly to voice mail that is Full. Attempted to call her second contact- Friend Anne and this also went directly to voice mail. Staff will continue to attempt to call her to either come to [facility] ED and transfer to [facility] or directly to [facility] for admission. Addendum- Was able to reach pt and D/W pt that event monitor shows 3rd degree heart block and Dr Mateo Mckay recommends pt to go to ED/ or [facility] for admission for heart block and most likely will need perm pacemaker insertion and she voiced understanding. [facility] Admission/beds called and notified. Pt states she is going to [facility] per request of her general surgeon and will ask for transfer from there. Debbie Sigala NPC [place] Cardiology Available 7a-5pm via Vocollect Chat Pager [phone] [facility] of [facility]07-24-2024 NotePatient Education - Text Gastroenterology Minimally [...] these instructions at home: Medicines ? Take yppm-kxn-xrgwypd and prescription medicines only as told by [...] keep your urine pale yellow. ? Take hekx-szr-jfjntlu or prescription medicines. ? Eat foods that [...] and water are not available, use hand mammal keeper. ? Change your dressing as told by [...] pain around the incisions. (more content not included)...[facility]07-24-2024 NoteH&P Update History and Physical Update H&P [...] Film, 1 patch(es), Topical, Daily, 1 refills [place] 325 mg-5 mg oral tablet, 1 tab(s), [...] Father. Melanoma: Sister. TIA (transient ischemic attack): Mother.[facility]07-13-2024 NoteRecommended smoking cessationUnThe [facility] of [facility]07-13-2024 NoteHypertension is unchanged. Continue current medications. Blood pressure will be reassessed at the next regular appointment.[facility]07-12-2024 NoteRoutine stress test and 30 day event monitor To assess chronotropic response and for any higher grade AV block.[facility]07-12-2024 NotePatient here for 6 mo follow up. She had echo last week. She needs cleared for cholecystectomy scheduled for 05/26/2024 at [facility]. Denies chest pain and palpitations. She is now on antihypertensive medication. Review of Systems Cardiovascular: Positive for dyspnea on exertion (with steps) and leg swelling (resolves by morning). Respiratory: Positive for cough and wheezing. Musculoskeletal: Positive for arthritis, joint pain and neck pain. Psychiatric/Behavioral: Positive for depression. All other systems reviewed and are negative.[facility] 05-14-2024 NotePt has received a PPM and has F/U with Dr Puentes yesterday [facility]07-12-2024 NoteUTP CARDIOLOGY PROGRESS NOTE HPI: Melba Zapata is a 69 y.o. female here for surgery clearance and review echocardiogram HPI 69 y.o. female here with past medical history of tobacco dependence, depression and arthritis. Patient here for 6 mo follow up. She had echo last week. She needs cleared for cholecystectomy scheduled for 05/26/2024 at [facility]. Denies chest pain and palpitations. She is [...] Risk 6.0 % 30-day risk of , AK, or cardiac arrest Pt has good functional/aerobic [...] the next regular appointment. Smoker Recommended smoking cessationRegency Hospital [facility]07-12-2024 Note RCRI=1 points Class II Risk 6.0 % 30-day risk of , [place], or cardiac arrest Pt has good functional/aerobic [...] shifts. This is good for next 6 months[facility] Hospital Discharge instructions Patient Education 04/14/2024 15:14:45 [...] provider. Document Revised: 07/04/2022 Document Reviewed: 07/04/2022 [employer] Patient Education 2022 [employer]. 04/14/2024 15:14:42 Obesity, Adult Obesity, Adult Obesity [...] ?Hypothyroidism. ?Polycystic ovarian syndrome (PCOS). ?Binge-eating disorder. ?Gardiner syndrome. Taking certain medicines, such as steroids, [...] food choices, such as grocery stores and Codef[place]. What are the signs or symptoms? The [...] and how much exercise you get. Take rmvy-vlb-gsqgyrx and prescription medicines only as told by [...] provider. Document Revised: 05/28/2022 Document Reviewed: 05/28/2022 [employer] Patient Education 2022 [employer]. 04/14/2024 15:14:41 Exercising to Lose Weight Exercising [...] your health care provider or diet and video production specialist (dietitian). This may include: ?Eating fewer [...] provider. Document Revised: 12/16/2021 Document Reviewed: 12/16/2021 [employer] Patient Education 2022 [employer]. 04/14/2024 15:14:37 Chronic Obstructive Pulmonary Disease Chronic [...] Follow these instructions at home: Medicines Take lqgc-oav-kppwrdd and prescription medicines only as told by [...] provider. Document Revised: 08/28/2021 Document Reviewed: 08/28/2021 [employer] Patient Education 2022 [employer] Inc. 04/14/2024 15:14:33 How to Use a Dry Powder Inhaler, Pjdr-dc-Kjbx How to Use a Dry Powder Inhaler [...] number is low, it is time to pick pulling machine tender a new DPI at your pharmacy. ?When [...] provider. Document Revised: 11/21/2020 Document Reviewed: 11/21/2020 [employer] Patient Education 2022 [employer]. 04/14/2024 15:14:26 Heart Disease Prevention Heart Disease [...] of hard liquor (44 mL). Medicines Take uwhi-euk-hplqhkh and prescription medicines only as told by [...] provider. Document Revised: 06/19/2022 Document Reviewed: 06/19/2022 [employer] Patient Education 2022 [employer]. 04/14/2024 15:14:23 Stroke Prevention Stroke Prevention Some [...] as: ?Fast walking. ?Biking. ?Swimming. Medicines Take pceo-ptm-uvvvjto and prescription medicines only as told by [...] provider. Document Revised: 05/21/2021 Document Reviewed: 05/21/2021 [employer] Patient Education 2022 [employer]. 04/14/2024 15:14:19 High Triglycerides Eating Plan High [...] meats. Dairy Whole or reduced-fat (2%) milk. Pycy-bzq-agxk. Cream cheese. Full-fat or sweetened yogurt. Full-fatcheese. Nondairy creamers. Whipped toppings. Processed cheese or cheese spreads. Cheese curds. Fats and oils Butter. Stick margarine. Lard. Shortening. Ghee. Jaime fat. Tropical oils, such as coconut, palm kernel, or palm oils. Beverages Alcohol. Sweetened drinks, such as soda, lemonade, fruit drinks, or punches. Sweets and desserts [place] syrup. Sugars. Honey. Molasses. Candy. Jam and [...] provider. Document Revised: 03/01/2022 Document Reviewed: 03/01/2022 [employer] Patient Education 2022 [employer]. 04/14/2024 15:14:17 Dyslipidemia Dyslipidemia Dyslipidemia is an [...] help quitting, ask your health careprovider. Take vbxf-btk-hcjdiay and prescription medicines only as told by [...] provider. Document Revised: 12/24/2021 Document Reviewed: 12/24/2021 [employer] Patient Education 2022 [employer] Inc[employer] 04/14/2024 15:14:14 Flank Pain, Adult Flank Pain, [...] told by your health care provider. Take qgdj-rjk-jqzzxwi and prescription medicines only as told by [...] provider. Document Revised: 12/31/2021 Document Reviewed: 12/31/2021 [employer] Patient Education 2022 [employer]. 04/14/2024 15:13:13 Vitamin D Deficiency Vitamin D [...] dietitian for more information. General instructions Take hvmy-auh-rqwynzd and prescription medicines only as told by [...] provider. Document Revised: 07/26/2022 Document Reviewed: 07/26/2022 [employer] Patient Education 2022 [employer]. 04/14/2024 15:13:12 Preventing Vitamin D Deficiency Preventing [...] such as almond, soy, or oat milks. ?[place] juice. ?Margarine. When choosing foods, check the [...] including vitamins, herbs, eye drops, creams, and zisi-wqv-gucbxrg medicines. Take nhap-xxg-jpwmrhx and prescription medicines only as told by [...] provider. Document Revised: 07/26/2022 Document Reviewed: 07/26/2022 [employer] Patient Education 2022 [employer]. 04/14/2024 15:13:10 Abrasion Abrasion An abrasion is [...] instructions at home: Medicines Take or apply nyxz-evc-mnbmuwb and prescription medicines only as told by [...] provider. Document Revised: 01/18/2021 Document Reviewed: 01/18/2021 [employer] Patient Education 2022 [employer] Inc[employer] 04/14/2024 15:13:02 Cholelithiasis Cholelithiasis Cholelithiasis is a [...] Follow these instructions at home: Medicines Take gzuo-ycp-fpbwouv and prescription medicines only as told by [...] important. Where to find more information National Terral of Diabetes and Digestive and Kidney Diseases: [...] provider. Document Revised: 09/11/2020 Document Reviewed: 09/11/2020 [employer] Patient Education 2022 [employer]. 04/14/2024 14:44:26 Hypertension, Adult Hypertension, Adult High [...] follow-up visits. This is important. Medicines Take ygng-oyw-kuctbbg and prescription medicines only as told by [...] provider. Document Revised: 08/27/2022 Document Reviewed: 08/27/2022 [employer] Patient Education 2022 [employer]. 04/14/2024 14:44:20 Form - Blood Pressure Record [...] provider. Document Revised: 07/04/2022 Document Reviewed: 07/04/2022 [employer] Patient Education 2022 [employer] Inc. 04/14/2024 14:44:14 Carbohydrate Counting for Diabetes [...] 1.Identify the foods that contain carbohydrates: Rice. [place]. Milk. Strawberries. 2.Calculate how many servings you [...] provider. Document Revised: 05/23/2021 Document Reviewed: 05/23/2021 [employer] Patient Education 2022 [employer] Inc. 04/14/2024 14:44:11 Calorie Counting for Weight Loss [...] provider. Document Revised: 11/30/2020 Document Reviewed: 11/30/2020 [employer] Patient Education 2022 [employer]. 04/14/2024 14:44:05 Mediterranean Diet Mediterranean Diet A [...] fresh fruits and vegetables in-season from local [place] markets. Buy plain frozen fruits and vegetables. [...] in common dishes like chili or lasagna. [place] with different cooking methods. Try roasting, broiling, [...] available, such as: ?Vegetable sticks with hummus. ?Andorran yogurt. ?Fruit and nut trail mix. Eat [...] Quinoa. Meats and other proteins Beans. Almonds. [place] seeds. [place] nuts. Peanuts. Cod. [place]. Scallops. Shrimp. Tuna. Tilapia. Clams. Oysters. Eggs. Poultry without skin. Dairy Low-fat milk. Cheese. Andorran yogurt. Fats and oils Extra-virgin olive oil. Avocado oil. Grapeseed oil. Beverages Water. Red wine. Herbal tea. Sweets and desserts Andorran yogurt with honey. Baked apples. Poached pears. Timber mix. Seasonings and condiments Basil. Cilantro. Coriander. [...] Fruit canned in syrup. Vegetables Deep-fried potatoes (ukrainian fries). Grains Prepackaged pasta or rice dishes. [...] provider. Document Revised: 11/24/2020 Document Reviewed: 09/21/2020 [employer] Patient Education 2022 [employer]. Follow Up Care 03/19/2024 16:02:59 With:Cameron SUGGS, CARROL Cedillo, [facility] Address: [address], [facility] [place] [id number]- When:Within 3 Month(s) Comments:f/u labs, HTN, EMphysema, SOB, PFTs, gall bladder and kidney stones. [facility] 06-12-2024 Evaluation + Plan note Future Scheduled Tests Laboratory* Basic Metabolic Panel 04/14/24 Radiology* CT Abdomen/Pelvis w/o Contrast 08/19/24 * MA Mamm Screen w/CAD if perf and 3D Jai 12/10/23 [facility] 06-12-2024 Evaluation + Plan note Future Scheduled Tests Laboratory* Basic Metabolic Panel 04/14/24 Radiology* MA Mamm Screen w/CAD if perf and 3D Jai 12/10/23 [facility] 05-17-2024 Hospital Discharge instructions Patient Education [...] things, which may include: Your personality traits. Cave or conditioned behaviors or thoughts or feelings [...] your health care provider. General instructions Take pmwg-zql-jamewzy and prescription medicines only as told by your health care provider. Eat a healthy diet and get plenty of sleep. Consider joining a support group. Your health care provider may be able to recommend one. Keep all follow-up visits as told by your health care provider. This is important. Where to find more information National [place] on Mental Illness: www.anthony.org [place]. National Terral of Mental Health: www.nimh.nih.gov Contact a health [...] department or: Call your local emergency services (903 in the [place] Call a suicide crisis helpline, such as the National Suicide Prevention Lifeline at or 873 in the [place] This is open 24 hours a day in the [place] Text the Crisis Text Line at 747228 (in the [place] Summary Major depressive disorder [...] provider. Document Revised: 05/15/2022 Document Reviewed: 09/30/2020 [employer] Patient Education 2022 [employer]. 03/19/2024 16:01:34 BMI for Adults BMI for [...] numbers. This can be done either in [place]orean (U.[place] or metric measurements. Note that charts and online BMI calculators are available to help you find your BMI quickly and easily without having to do these calculations yourself. To calculate your BMI in Salvadorean ([place] measurements: 1.Measure your weight in pounds [...] Association: www.heart.org National Heart, Lung, and Blood Terral: www.nhlbi.nih.gov Summary Body mass index (BMI) is a number that is calculated from a person's weight and height. BMI may help estimate how much of a person's weight is composed of fat. BMI can help identify thosewho may be at higher risk for certain medical problems. BMI can be measured using Salvadorean measurements or metric measurements. BMI charts are used to identify whether you are underweight, normal weight, overweight, or obese. This information is not intended to replace advice given to you by your health care provider. Make sure you discuss any questions you have with your health care provider. Document Revised: 07/12/2020 Document Reviewed: 05/19/2020 [employer] Patient Education 2022 [employer]. 03/19/2024 16:01:30 Heart Disease Prevention Heart Disease [...] of hard liquor (44 mL). Medicines Take sxrs-ube-neoqrrl and prescription medicines only as told by [...] provider. Document Revised: 06/19/2022 Document Reviewed: 06/19/2022 [employer] Patient Education 2022 [employer]. 03/19/2024 16:01:30 Familial Hypercholesterolemia Familial Hypercholesterolemia Familial [...] may recommend: ?Working with a diet and video production specialist (dietitian), who can help you make [...] conditions affect your heart. General instructions Take zbjb-eis-gclugba and prescription medicines only as told by [...] provider. Document Revised: 12/24/2021 Document Reviewed: 12/24/2021 [employer] Patient Education 2022 [employer] Inc[employer] 03/19/2024 16:01:29 Dyslipidemia Dyslipidemia Dyslipidemia is an [...] help quitting, ask your health careprovider. Take staw-cfo-qzwrmcn and prescription medicines only as told by [...] provider. Document Revised: 12/24/2021 Document Reviewed: 12/24/2021 [employer] Patient Education 2022 [employer]. 03/19/2024 16:01:27 Dietary Guidelines to Help Prevent [...] include: ?8 oz (237 mL) of milk, frcgiqt-fjhvigavqojr-lcnkb milk, and calcium- fortifiedfruit juice. Calcium-fortified means [...] ?Spinach (cooked), rhubarb, beets, sweet potatoes, and [place] Leonean chard. ?Peanuts. ?Potato chips, ukrainian fries, and baked potatoes with skin on. ?Nuts and nut products. ?Chocolate. If you regularly take a diuretic medicine, make sure to eat at least 1 or 2 servings of fruits or vegetables that are high in potassium each day. These include: ?Avocado. ?Banana. ?[place], prune, carrot, or tomato juice. ?Baked potato. [...] magnesium, fish oil, or vitamin B6. Take uten-ieb-bnkuvqf and prescription medicines only as told by [...] Casseroles. Pizza. Lasagna. Frozen meals. Potato chips. Puerto Rican fries. The items listed above may not [...] provider. Document Revised: 01/30/2023 Document Reviewed: 01/30/2023 [employer] Patient Education 2022 [employer]. 03/19/2024 16:01:22 Heart Disease Prevention Heart Disease [...] of hard liquor (44 mL). Medicines Take zfvr-pmz-aucgraw and prescription medicines only as told by [...] provider. Document Revised: 06/19/2022 Document Reviewed: 06/19/2022 [employer] Patient Education 2022 [employer] Inc[employer] 03/19/2024 16:01:22 Form - Blood Pressure [...] provider. Document Revised: 07/04/2022 Document Reviewed: 07/04/2022 [employer] Patient Education 2022 [employer]. 03/19/2024 16:01:21 DASH Eating Plan DASH Eating [...] Dairy Whole or 2% milk, cream, and xhdb-vzm-uttz. Whole or full-fat cream cheese. Whole-fat or [...] more information National Heart, Lung, and Blood Terral: www.nhlbi.nih.gov [place] Heart Association: www.heart.org Academy of [...] provider. Document Revised: 09/22/2020 Document Reviewed: 09/22/2020 [employer] Patient Education 2022 [employer]. Follow Up Care 03/16/2024 10:03:20 With:Beatrice Ingram FAM, [facility] Address: [address], [address] [facility] [address] [place] [address]- When:Within 1 Month(s) Comments:f/u labs, HTN, [facility] 02-07-2024 Hospital Discharge instructions [...] of the medicines you are taking, including lpwz-iou-jqjpcrm medicines. Ask your health care provider about [...] feel dizzy, tiredness (fatigue), or off-balance. Take zlch-owf-rilqqok and prescription medicines only as told by [...] provider. Document Revised: 03/11/2022 Document Reviewed: 03/11/2022 [employer] Patient Education 2022 [employer]. 12/10/2023 17:55:54 Osteopenia Osteopenia Osteopenia is a [...] hard liquor (44 mL). General instructions Take pgbf-cqm-aevtvca and prescription medicines only as told by [...] provider. Document Revised: 04/05/2021 Document Reviewed: 04/05/2021 [employer] Patient Education 2022 [employer] Inc[employer] 12/10/2023 17:55:49 Heart Disease Prevention Heart [...] of hard liquor (44 mL). Medicines Take lmmb-led-qkaxwlq and prescription medicines only as told by [...] provider. Document Revised: 06/19/2022 Document Reviewed: 06/19/2022 [employer] Patient Education 2022 [employer]. 12/10/2023 17:55:48 DASH Eating Plan DASH Eating [...] Dairy Whole or 2% milk, cream, and qxvz-dhb-jekr. Whole or full-fat cream cheese. Whole-fat or [...] more information National Heart, Lung, and Blood Terral: www.nhlbi.nih.gov [place] Heart Association: www.heart.org Academy of [...] provider. Document Revised: 09/22/2020 Document Reviewed: 09/22/2020 [employer] Patient Education 2022 [employer]. 12/10/2023 17:55:46 Major Depressive Disorder, Adult Major [...] things, which may include: Your personality traits. Cave or conditioned behaviors or thoughts or feelings [...] your health care provider. General instructions Take mtzg-sbb-abkpevw and prescription medicines only as told by your health care provider. Eat a healthy diet and get plenty of sleep. Consider joining a support group. Your health care provider may be able to recommend one. Keep all follow-up visits as told by your health care provider. This is important. Where to find more information National [place] on Mental Illness: www.anthony.org [place]. National Terral of Mental Health: www.nimh.nih.gov Contact a health [...] department or: Call your local emergency services (032 in the [place] Call a suicide crisis helpline, such as the National Suicide Prevention Lifeline at or 266 in the [place] This is open 24 hours a day in the [place] Text the Crisis Text Line at 477158 (in the [place] Summary Major depressive disorder [...] provider. Document Revised: 05/15/2022 Document Reviewed: 09/30/2020 [employer] Patient Education 2022 [employer]. 12/10/2023 17:55:43 Fatigue Fatigue If you have [...] Follow these instructions at home: Medicines Take comj-zsl-dfugwzg and prescription medicines only as told by [...] the National Suicide Prevention Lifeline at or 396. This is open 24 hours a day. Text the Crisis Text Line at 936282. Summary If you have fatigue, you feel [...] provider. Document Revised: 08/12/2022 Document Reviewed: 08/12/2022 [employer] Patient Education 2022 [employer]. Follow Up Care 10/30/2023 15:21:43 With:Beatrice Ingram, [facility], [facility] Address: [address], [address] [place] [id number]- When:Within 4 Week(s) Comments:Follow-up on ultrasound of the kidney, CT chest, lab results, hypertension, smoking sensation, [facility] 02-01-2024 Evaluation + Plan note Future Appointments Appointment Date:12/11/2023 01:45:00 PM Scheduled Provider: Location:.OCCUPATIONAL Appointment Type:OT 60 (FT) Appointment Date:12/15/2023 02:15:00 PM Scheduled Provider: Location:.OCCUPATIONAL Appointment Type:OT 60 (FT) Appointment Date:12/16/2023 02:00:00 PM Scheduled Provider: Location:.OCCUPATIONAL Appointment Type:OT 60 (FT) Appointment Date:12/18/2023 08:15:00 AM Scheduled Provider: Location:.OCCUPATIONAL Appointment Type:OT Re-Eval (FT) Appointment Date:01/21/2024 01:40:00 PM Scheduled Provider:Beatrice Ingram Location:[facility] Appointment Type: Open Appointment Date:07/13/2024 02:30:00 PM Scheduled Provider: Location:[facility] Appointment Type:FM Medicare Wellness Subsequent Future Scheduled [...] w/CAD if perf and 3D Jai 12/10/23 [facility] 12-28-2023 Hospital Discharge instructions [...] a fast heartbeat, dizziness, or weakness), call --1 and get the person to the nearest hospital. For other signs that concern you, call your health care provider. Adverse reactions should be reported to the Vaccine Adverse Event Reporting System (VAERS). Your health care provider will usually file this report, or you can do it yourself. Visit the VAERS websiteat www.vaers.community health systems.gov or call . VAERS is only for reporting reactions, and VAERS staffdo not give medical advice. 6. How can I learn more? Ask your health care provider. Call your local or state health department. Contact the Centers for Disease Control and Prevention (CDC): ?Call (7-640-YKV-INFO) or ?Visit CDC's website at www.cdc.gov/vaccines Source: CDC Vaccine Information Statement PPSV23 Vaccine (09/01/2019) This same material is available at www.cdc.gov for no charge. This information is not intended to replace advice given to you by your health care provider. Make sure you discuss any questions you have with your health care provider. Document Revised: 09/18/2022 Document Reviewed: 07/22/2022 [employer] Patient Education 2022 [employer]. 10/30/2023 15:37:01 Understanding Your Risk for Falls [...] information Centers for Disease Control and Prevention, GIGIADI: www.cdc.gov Community-Based Fall Prevention Programs: www.cdc.gov National Terral on Aging: www.erich.nih.gov Contact a health care [...] provider. Document Revised: 05/23/2021 Document Reviewed: 05/23/2021 [employer] Patient Education 2022 [employer]. 10/30/2023 15:36:56 Exercising to Lose Weight Exercising [...] your health care provider or diet and video production specialist (dietitian). This may include: ?Eating fewer [...] provider. Document Revised: 12/16/2021 Document Reviewed: 12/16/2021 [employer] Patient Education 2022 [employer] Inc. 10/30/2023 15:36:55 DASH Eating Plan DASH Eating [...] Dairy Whole or 2% milk, cream, and uesa-tpa-fhsp. Whole or full-fat cream cheese. Whole-fat or [...] more information National Heart, Lung, and Blood Terral: www.nhlbi.nih.gov [place] Heart Association: www.heart.org Academy of [...] provider. Document Revised: 09/22/2020 Document Reviewed: 09/22/2020 [employer] Patient Education 2022 [employer] Inc. 10/30/2023 15:36:53 BMI for Adults BMI [...] numbers. This can be done either in [place] ([place] or metric measurements. Note that charts and online BMI calculators are available to help you find your BMI quickly and easily without having to do these calculations yourself. To calculate your BMI in [place] ([place] measurements: 1.Measure your weight in pounds [...] Association: www.heart.org National Heart, Lung, and Blood Terral: www.nhlbi.nih.gov Summary Body mass index (BMI) is a number that is calculated from a person's weight and height. BMI may help estimate how much of a person's weight is composed of fat. BMI can help identify thosewho may be at higher risk for certain medical problems. BMI can be measured using Salvadorean measurements or metric measurements. BMI charts are used to identify whether you are underweight, normal weight, overweight, or obese. This information is not intended to replace advice given to you by your health care provider. Make sure you discuss any questions you have with your health care provider. Document Revised: 07/12/2020 Document Reviewed: 05/19/2020 [employer] Patient Education 2022 [employer]. [facility] 11-30-2023 NoteCardiovascular Medicine [facility] SUBJECTIVE No chief complaint on file. RORY [...] 3 months (around 01/01/2024). Dario Vang APRN-[facility] Cardi[facility] MedicineUn[facility]23 NoteNew patient here to establish [...] depression. All other systems reviewed and are negative.[facility] 08-21-2023 Hospital Discharge instructions Patient Education 08/21/2023 15:21:56 Parotitis, Hmft-hd-Tzlc Parotitis Parotitis means that you have irritation [...] Follow these instructions at home: Medicines Take mbtn-ada-ivlxbgt and prescription medicines only as told by [...] saliva. Take good care of your mouth: ?[place] your teeth at least two times a [...] provider. Document Revised: 03/01/2022 Document Reviewed: 03/01/2022 [employer] Patient Education 2022 [employer]. 08/21/2023 15:21:53 Sinus Infection, Adult Sinus Infection, [...] saline washes). ?Medicines that treat allergies (antihistamines). ?Cgla-exr-cbwxbgl pain relievers. If caused by bacteria, your [...] at home: Medicines Take, use, or apply yumf-nzp-kkekhph and prescription medicines only as told by [...] and water are not available, use hand mammal keeper. Do not smoke. Avoid being around people [...] provider. Document Revised: 09/24/2022 Document Reviewed: 09/24/2022 [employer] Patient Education 2022 [employer]. Follow Up Care 08/21/2023 13:44:38 With:Martha Hathaway CNP Address:Unknown When: Unknown [facility] 07-07-2022 NotePROCEDURE: XR FOOT [...] Electronically authenticated by: DENIA JOHNS Date: 2022-05-09 12:09[facility]06-16-2022 Hospital Discharge instructions Patient Education 04/18/2022 18:27:01 [...] knees and rising up. Do strength and bhwzf-wi-txwqml exercises only as told by your health care provider or physical therapist. General instructions Take gyms-cyy-mmfclyw and prescription medicines only as told by [...] 11/27/2005 Document Revised: 05/04/2019 Document Reviewed: 05/04/2019 [employer] Patient Education 2020 [employer]. 04/18/2022 18:26:03 Tobacco Use Disorder Tobacco Use [...] reduces withdrawal symptoms. NRT is available as: ?Wqmv-jat-icxqgus gums, lozenges, and skin patches. ?Prescription mouth [...] recovery for many people. General instructions Take ztwy-mze-sckkkjn and prescription medicines only as told by your health care provider. Check with your health care provider before taking any new prescription or xidq-uro-nehoogm medicines. Decide on a friend, family member, or smoking quit-line (such as 5-792-ZUKQ-NOW in the [place] that you can call [...] 06/25/2005 Document Revised: 10/07/2018 Document Reviewed: 10/07/2018 [employer] Patient Education 2020 [employer]. 04/18/2022 18:25:59 BMI for Adults BMI for [...] height. This can be done either in [place] ([place] or metric measurements. Note that charts are available to help you find your BMI quickly and easily without having to do these calculations yourself. To calculate your BMI in [place]orean ([place] measurements, your health care provider will: [...] medical problems. BMI can be measured using Salvadorean measurements or metric measurements. To interpret your [...] 07/01/2005 Document Revised: 10/02/2018 Document Reviewed: 09/02/2018 [employer] Patient Education 2020 [employer]. 04/18/2022 18:25:57 Vitamin D Deficiency Vitamin D [...] 01/11/2013 Document Revised: 06/28/2019 Document Reviewed: 06/28/2019 [employer] Patient Education 2020 [employer]. 04/18/2022 18:25:50 Managing Anxiety, Adult Managing Anxiety, [...] care provider. Avoid caffeine, alcohol, and certain tijr-vwn-ovyxtke cold medicines. These may make you feel worse. Ask your pharmacist which medicines to avoid. General instructions Take hspx-uvw-qrelprd and prescription medicines only as told by [...] Depression Association of [place] (ADAA): www.adaa.org National [place] on Mental Illness (ANTHONY): www.anthony.org Contact a [...] 10/14/2017 Document Revised: 03/21/2020 Document Reviewed: 03/21/2020 [employer] Patient Education 2019 [employer]. 04/18/2022 18:25:47 Major Depressive Disorder, Adult Major [...] your health care provider. General instructions Take tgml-ybk-ezirrnp and prescription medicines only as told by [...] important. Where to find more information National [place] on Mental Illness www.anthony.org [place]. National Terral of Mental Health www.[facility] hospital[facility].nih.gov National Suicide Prevention Lifeline 9-547-730-ALKT (0182). This is free, 24-hour help. Contact a [...] 02/14/2014 Document Revised: 10/02/2018 Document Reviewed: 04/30/2017 [employer] Patient Education 2020 [employer] Inc. 04/18/2022 18:25:41 Dyslipidemia Dyslipidemia Dyslipidemia is [...] quitting, ask your health care provider. Take quir-xcy-ttboljd and prescription medicines only as told by [...] 10/25/2014 Document Revised: 06/14/2019 Document Reviewed: 05/21/2019 [employer] Patient Education 2020 [employer]. 04/18/2022 18:25:39 DASH Eating Plan DASH Eating [...] your health care provider or diet and video production specialist (dietitian) to adjust your eating plan [...] each week. ?Heart-healthy fats. Healthy fats called [place]-3 fatty acids are found in foods such [...] Dairy Whole or 2% milk, cream, and rirj-lep-jbro. Whole or full-fat cream cheese. Whole-fat or [...] more information: National Heart, Lung, and Blood Terral: www.nhlbi.nih.gov [place] Heart Association: www.heart.org Summary The [...] your health care provider or diet and video production specialist (dietitian) to adjust your eating plan to your individual calorie needs. This information is not intended to replace advice given to you by your health care provider. Make sure you discuss any questions you have with your health care provider. Document Released: 10/08/2012 Document Revised: 10/02/2018 Document Reviewed: 10/13/2017 [employer] Patient Education 2020 [employer]. Follow Up Care 04/17/2022 13:33:25 With:Martha Hathaway CNP Address: When:6 months [facility] 06-16-2022 Evaluation + Plan note Future Scheduled Tests Laboratory* Vitamin D 25 Hydroxy 04/18/22 [facility] [place] Evaluation + Plan note Future Appointments Appointment Date:09/06/2022 01:00:00 PM Scheduled Provider: Location:[facility] Appointment Type: Medicare Wellness Subsequent Future Scheduled Tests Radiology* BD Bone Density DEXA 10/03/21 * MA Mamm Screen w/CAD if perf and 3D Jai [facility]03[facility]21 [facility]ments Appointment Date:05/01/2022 02:20:00 PM Scheduled Provider:Leopoldo Sanchez DO Location:[facility] Appointment Type: Open Appointment Date:09/06/2022 01:00:00 PM Scheduled Provider: Location:[facility] Appointment Type:FM Medicare Wellness Subsequent Future Scheduled Tests Laboratory* Vitamin D 25 Hydroxy 04/18/22 Radiology* BD Bone Density DEXA 10/03/21 * MA Mamm Screen w/CAD if perf and 3D Jai 10/03/21 [facility] Evaluation + Plan note Future Appointments Appointment Date:09/17/2023 01:00:00 PM Scheduled Provider: Location:[facility] Appointment Type: Medicare Wellness Subsequent [facility] Evaluation + Plan note Future Appointments Appointment Date:11/10/2023 01:15:00 PM Scheduled Provider: Location:FT.OCCUPATIONAL Appointment Type:OT Eval (FT) Appointment Date:12/10/2023 04:00:00 PM Scheduled Provider:Beatrice Ingram Location:[facility] Appointment Type: New Patient - Adult Appointment Date:07/13/2024 02:30:00 PM Scheduled Provider: Location:[facility] Appointment Type: Medicare Wellness Subsequent [facility] Evaluation + Plan note Future Appointments Appointment Date:01/21/2024 01:40:00 PM Scheduled Provider:Beatrice Ingram Location:[facility] Appointment Type: Open Appointment Date:07/13/2024 02:30:00 PM Scheduled Provider: Location:[facility] Appointment Type: Medicare Wellness Subsequent Future Scheduled [...] w/CAD if perf and 3D Jai 12/10/23 [facility] App[facility]ments Appointment Date:04/19/2024 03:00:00 PM Scheduled Provider:Beatrice Ingram Location:[facility] Appointment Type: Open Appointment Date:07/13/2024 02:30:00 PM Scheduled Provider: Location:[facility] Appointment Type: Medicare Wellness Subsequent Future Scheduled [...] w/CAD if perf and 3D Jai 12/10/23 [facility] evaluation + Plan note Future Appointments Appointment Date:04/19/2024 02:40:00 PM Scheduled Provider:Beatrice Ingram Location:[facility] Appointment Type:FM Open Appointment Date:07/13/2024 02:30:00 PM Scheduled Provider: Location:[facility] Appointment Type: Medicare Wellness Subsequent Diagnostic Tests Pending * Urine Culture 04/02/24 Future Scheduled Tests Radiology* MA Mamm Screen w/CAD if perf and 3D Jai 12/10/23 [facility] Future App[facility]ments Appointment Date:07/12/2024 02:00:00 PM Scheduled Provider:Antonio FUENTES MD Location:[facility] Appointment Type:URO New Patient Appointment Date:07/13/2024 02:30:00 PM Scheduled Provider: Location:[facility] Appointment Type: Medicare Wellness Subsequent Appointment Date:07/15/2024 02:00:00 PM Scheduled Provider:Beatrice Ingram Location:[facility] Appointment Type: Open Future Scheduled Tests Laboratory* Basic Metabolic Panel 04/14/24 Radiology* MA Mamm Screen w/CAD if perf and 3D Jai 12/10/23 [facility] evaluation + Plan note Future Appointments Appointment Date:04/27/2024 02:20:00 PM Scheduled Provider:Aakash Levy MD Location:[facility] Appointment Type:GS New 30 Appointment Date:07/12/2024 02:00:00 PM Scheduled Provider:Anton[facility]ES MD [facility]O New Patient Appointment Date:07/13/2024 02:30:00 PM Scheduled Provider: Location:[facility] Appointment Type: Medicare Wellness Subsequent Appointment Date:07/15/2024 02:00:00 PM Scheduled Provider:Beatrice Ingram Location:[facility] Appointment Type: Open Future Scheduled Tests Laboratory* Basic Metabolic Panel 04/14/24 Radiology* MA Mamm Screen w/CAD if perf and 3D Jai 12/10/23 [facility] Future Appointments Appointment Date:05/21/2024 10:00:00 AM Scheduled Provider: Location:[facility] Appointment Type:Surgery CALL PAT FT Appointment Date:05/26/2024 08:00:00 AM Scheduled Provider: Location:[facility] Appointment Type:Surgery FT Appointment Date:06/04/2024 08:20:00 AM Scheduled Provider:Aakash Levy MD Location:[facility] Appointment Type:GS Post Op 15 Appointment Date:07/12/2024 02:00:00 PM Scheduled Provider:Antonio FUENTES MD Location:[facility] Appointment Type:URO New Patient Appointment Date:07/13/2024 02:30:00 PM Scheduled Provider: Location:[facility] Appointment Type: Medicare Wellness Subsequent Appointment Date:07/15/2024 02:00:00 PM Scheduled Provider:Beatrice Ingram Location:[facility] Appointment Type: Open Future Scheduled Tests Laboratory* Basic Metabolic Panel 04/14/24 Radiology* MA Mamm Screen w/CAD if perf and 3D Jai 12/10/23 [facility] Evaluation + Plan note Future Appointments Appointment Date:07/13/2024 02:30:00 PM Scheduled Provider: Location:[facility] Appointment Type:FM Medicare Wellness Subsequent Appointment Date:07/15/2024 02:00:00 PM Scheduled Provider:Beatrice Ingram Location:[facility] Appointment Type:FM Open Appointment Date:08/19/2024 08:30:00 AM Scheduled Provider:Lucinda Jin MD Location:[facility] Appointment Type:URO New Patient Future Scheduled Tests Laboratory* Basic Metabolic Panel 04/14/24 Radiology* MA Mamm Screen w/CAD if perf and 3D Jai 12/10/23 [facility] Evaluation + Plan note Future Appointments Appointment Date:08/19/2024 08:30:00 AM Scheduled Provider:Davin CONSTANTINO, Lucinda Ortiz Location:[facility] Appointment Type:URO New Patient Future Scheduled Tests Laboratory* Basic Metabolic Panel 04/14/24 Radiology* MA Mamm Screen w/CAD if perf and 3D Jai 12/10/23 [facility] Hospital course Narrative No data available for this section [facility] No data available for this section [facility] No data available for this section [facility] Summary Purpose Family History [...] section and content) DATE CREATED AUTHOR 04/29/2018 [facility] DATE CREATED AUTHOR AUTHOR'S ORGANIZ ATION 05/12/2022 [facility] DATE CREATED AUTHOR AUTHOR'S ORGANIZ ATION 10/06/2023 Nadiya herrera DATE CREATED AUTHOR AUTHOR'S ORGANIZ ATION 04/03/2024 [facility] DATE CREATED AUTHOR AUTHOR'S ORGANIZ ATION 04/04/2024 [facility] DATE CREATED AUTHOR AUTHOR'S ORGANIZ ATION 06/07/2024 [facility] DATE CREATED AUTHOR AUTHOR'S ORGANIZ ATION 06/10/2024 [facility] DATE CREATED AUTHOR AUTHOR'S ORGANIZ ATION 07/01/2024 [facility] DATE CREATED AUTHOR AUTHOR'S ORGANIZ ATION 07/13/2024 [facility] DATE CREATED AUTHOR AUTHOR'S ORGANIZ ATION 08/30/2024 [facility] Care Team (unrecognized sect ion and content) Personnel Name: Martha Hathaway CNP Address: [address] [place] [address] [place] Name: Nia Wolff Personnel Name: Martha Hathaway CNP Address: Address: [address] [place] [address] [place] Name: Nia Wolff Personnel Name: Martha Hathaway CNP Address: Address: [address] [place] [address] [place] Name: Nia Wolff Personnel Name: Miguel Atkins MD Address: Address: [address] [place] [address] [place] Name: Nia Wolff Personnel Name: Beatrice Ingram Address: Address: [address] [place] [address] [place] [address]- Name: Nia Wolff Personnel Name: Beatrice Ingram Address: Address: [address] [place] [address] [place] [id number]- Name: Nia Wolff Personnel Name: Beatrice Ingram Address: Address: [address] [place] [address] [place] [address]- Name: Nia Wolff Personnel Name: Beatrice Ingram Address: Address: [facility] [place], [facility] A [address] [address]- Name: Nia Wolff Personnel Name: Beatrice Ingram Address: Address: [facility] [place], [facility] A [address] [place] [address]- Name: Nia Wolff Personnel Name: Beatrice Ingram Address: Address: [facility] [place], [facility] A [address] [place] [address]- Name: Nia Wolff Personnel Name: Beatrice Ingram Address: Address: [facility] [place], [facility] A [address] [place] [address]- Name: Nia Wolff Personnel Name: Beatrice Ingram Address: Address: [facility] [place], [facility] A [address] [place] [address]- Name: Nia Wolff Personnel Name: Beatrice Ingram Address: Address: [facility] [place], [facility] A [address] [place] [address]- Name: Nia Wolff Personnel Name: Beatrice Ingram Address: Address: [facility] [place], [facility] A [address] [place] [address]- Name: Nia Wolff Personnel Name: Beatrice Ingram Address: Address: [facility] [place], [facility] A [address] [place] [address]- Name: Nia Wolff Personnel Name: Beatrice Ingram Address: Address: [address] [place], [place] [address], [facility] A [address] [place] [address]- Name: Nia Wolff Personnel Name: Beatrice Ingram Address: Address: [address] [place], [place] [address]ct [place], [facility] A [address] [place] [address]- Name: Nia Wolff FOR RECORDS PERTAINING TO [...] BE BASED ON THE PRIMARY CLINICAL RECORDS. [facility], [facility]. provides no warranty or guarantee of the accuracy or completeness of information in this document.
[2024-09-15] MEDS: LACTATED RINGER'S SOLUTION 1,000 ML 50 ML IV (14:08)
[2024-09-15] MEDS: CEFAZOLIN SODIUM 2 GM/50 ML D5W PREMIX IV (14:08)
--- NOTE | 2024-09-15 14:11 | PM.URSON ---
Urology Surgery Operative Note Operative Note Procedure Date: 09/15/24 Time Out Performed: yes Pre-op Diagnosis: Left kidney stones Post-op Diagnosis: same as pre-op Procedures performed: Cystoscopy, left retrograde pyelogram, ureteroscopy laser lithotripsy/stone extraction, stent placement Anesthesia: General-LMA (Dr. Quinn) Primary Surgeon: Lucinda Jin Complications: none Estimated blood loss (mL): 0 Findings: L RPG - no hydronephrosis or extravasation Left 3 mm upper pole, 3 mm lower pole and 9 mm lower mid pole stones (radiopaque) underwent uncomplicated laser lithotripsy and stone extraction Specimens: left kidney stones Drains: 6Fr x 24 cm JJ left ureteral stent on string Incision: none Indications for Procedures: 69 year old female with multiple left kidney stones measuring 3-9 mm each presents for definitive treatment. After discussion of risks/benefits of management options, the patient elected to proceed with cystoscopy, left retrograde pyelogram, ureteroscopy with laser lithotripsy/stone extraction, possible ureteral stent placement under general anesthesia. Risks were discussed including but not limited to bleeding, pain, infection, damage to surrounding structures, inability to treat the stone/place a stent, and need for additional procedures. The patient understands the stent is not permanent and needs to be removed or exchanged within 3 months to prevent encrustation, infection, invasive procedures and/or permanent renal damage. Detailed description of Procedure: After informed consent was obtained, the patient was brought to the operating room and transferred onto the operating table in supine position. Sequential compression devices were placed on bilateral lower extremities. The patient received the appropriate dose of preoperative IV antibiotics and general anesthesia LMA was induced. They were positioned in modified dorsolithotomy with the appropriate pressure points padded, prepped, and draped in the usual sterile fashion for this procedure. An operative safety timeout was performed confirming the patient's identity, laterality and procedure, and all present agreed to proceed. I began by inserting a 22 Ecuadorean rigid cystoscope with 30 degree lens into the patient's urethra and bladder without difficulty. There were no bladder tumors, lesions, stones or foreign bodies. Bilateral ureteral orifices were orthotopic and patent. I turned my attention to the left ureteral orifice and a 6- Ecuadorean open-ended catheter was inserted into the ureteral orifice and dilute contrast was injected for retrograde pyelogram with findings as above. A Sensor wire was inserted into the ureter up to the renal pelvis confirmed on fluoroscopy. An 11/13 Ecuadorean by 36 cm ureteral access sheath was inserted over the wire in a sequential fashion to gain access to the renal pelvis. Next a flexible ureteroscope was inserted through the sheath and advanced to the renal pelvis under fluoroscopic guidance. A renoscopy was done with findings as above. A 1.8 tipless nitinol basket was used to extract the smaller stones. A 275 ?m thulium laser fiber was used to break the stone into fragments which were then removed with the basket. After the stones were adequately treated, a full renoscopy was performed confirming no significant residual stones or fragments remained. Contrast was injected to assist with mapping for the renoscopy. The wire was reinserted and a pull down ureteroscopy was performed confirming no stones remained in the ureter. Contrast was injected for retrograde pyelogram confirming no extravasation of contrast, filling defects or hydronephrosis. A 6 Fr x 24 cm JJ ureteral stent on string was advanced over the wire, noting adequate curl in the renal pelvis and bladder on fluoroscopic visualization. The stones were sent for pathology. String secured to thigh with tegaderm. The patient tolerated the procedure well without complication. The patient was awakened from anesthesia and sent to PACU in stable condition. Plan: Discharge home with stent pain medications. Remove stent by the string at home in 5 days. Follow up in 6-8 weeks with renal US. Other Provider present: No Post Operative care instructions: See discharge instructions Attending Doc Confirm Attending Attestation: Yes
[2024-09-15] MEDS: IOHEXOL 300 MG/ML - 50 ML BTL INJ (14:44)
[2024-09-20 20:08] LABS: Calcium Oxalate Dihydrate 30 % (.); Calcium Oxalate Monohydrate 60 % (.); Calcium phosphate (hydroxyl) 10 % (.); Size 8x3 mm (.)
== END 2024-09-15 16:30 | disposition home or self-care (01) ==
PROVIDERS: Visit Provider Urology
PROC: (CPT 52356; principal; 2024-09-15 13:45)
DX: N20.0 Calculus of kidney (principal); J43.9 Emphysema, unspecified; E78.5 Hyperlipidemia, unspecified; I25.10 Atherosclerotic heart disease of native coronary artery without angina pectoris; Z95.0 Presence of cardiac pacemaker; R35.0 Frequency of micturition; N39.46 Mixed incontinence; Z90.49 Acquired absence of other specified parts of digestive tract; F17.210 Nicotine dependence, cigarettes, uncomplicated; Z87.440 Personal history of urinary (tract) infections; K21.9 Gastro-esophageal reflux disease without esophagitis
CPT/HCPCS: 52356; 74420; 82365; 99999; J0690; J1100; J2250; J2371; J2405; J2704; J3010; Q9967

== ENCOUNTER 2024-09-21 12:58 | Outpatient (OUT) | payer MEDICARE, SELFPAY ==
--- NOTE | 2024-09-21 13:03 | XR_ITS ---
The [address] [address] Patient Name: MELBA ZAPATA MRN: [id number] date: 1955 Sex: F Assigned Patient Location: [facility] Current Patient Location: [facility] Accession/Order Number: [id number] Exam Date: 09/21/2024 13:05 Report Date: 09/23/2024 06:33 At the request of: MIGUEL COLEMAN Procedure: XR foot RT min 3V PROCEDURE: XR foot RT min 3V HISTORY: Right Foot COMPARISON: XR foot right 08/26/2024 FINDINGS: BONES:Mechanical fusion the first metatarsophalangeal joint via dorsal plate and screws. Single screw within head of second metatarsal. 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 SOFT TISSUES:Mild distal dorsal soft tissue swelling. EFFUSION:None visible. OTHER: Negative. XR/XR foot RT min 3V IMPRESSION: 1 stable surgical changes without evidence of hardware failure or change in alignment. Electronically authenticated by: DENIA JOHNS Date: 09/23/2024 06:33
== END 2024-09-21 12:59 | disposition home or self-care (01) ==
LOC: RAD 12:58
PROVIDERS: Visit Provider Podiatrist Foot & Ankle Surgery
DX: M79.671 Pain in right foot (principal); M24.674 Ankylosis, right foot
CPT/HCPCS: 73630

== ENCOUNTER 2024-10-12 12:26 | Outpatient (OUT) | payer MEDICARE, SELFPAY ==
--- NOTE | 2024-10-12 12:38 | XR_ITS ---
The [address] [address] Patient Name: MELBA ZAPATA MRN: [id number] date: 1955 Sex: F Assigned Patient Location: [facility] Current Patient Location: Accession/Order Number: [id number] Exam Date: 10/12/2024 12:30 Report Date: 10/14/2024 04:33 At the request of: MIGUEL COLEMAN Procedure: XR foot RT min 3V PROCEDURE: XR foot RT min 3V HISTORY: right foot pain COMPARISON: XR foot right 09/21/2024 FINDINGS: BONES:Prior mechanical fusion of the first metatarsophalangeal joint via dorsal plate and screws. Single screw within head of second metatarsal. Degenerative changes versus prior resection of distal articular surface of the third proximal phalanx. Osseous fusion of the second toe proximal interphalangeal joint. Small calcaneal plantar spur. SOFT TISSUES:No visible soft tissue swelling. EFFUSION:None visible. OTHER: Negative. XR/XR foot RT min 3V IMPRESSION: 1. Stable surgical changes and degenerative changes. No evidence of hardware failure or change in alignment. Electronically authenticated by: DENIA JOHNS Date: 10/14/2024 04:33
== END 2024-10-12 12:27 | disposition home or self-care (01) ==
LOC: RAD 12:26
PROVIDERS: Visit Provider Podiatrist Foot & Ankle Surgery
DX: M79.671 Pain in right foot (principal); M24.674 Ankylosis, right foot
CPT/HCPCS: 73630

== ENCOUNTER 2024-11-23 14:08 | Outpatient (OUT) | payer MEDICARE, SELFPAY ==
--- NOTE | 2024-11-23 14:12 | XR_ITS ---
[address] [address] Patient Name: MELBA ZAPATA MRN: [id number] date: 1955 Sex: F Assigned Patient Location: [facility] Current Patient Location: Accession/Order Number: [id number] Exam Date: 11/23/2024 14:15 Report Date: 11/24/2024 22:28 At the request of: MIGUEL COLEMAN Procedure: XR foot RT min 3V EXAM: XR foot RT min 3V HISTORY: Right Foot Pain COMPARISON: 10/12/2024 FINDINGS/IMPRESSION: 1. Plate and screw fixation of the first metatarsophalangeal joint. Osteotomy fixation screw of the second metatarsal head. 2. Mild degeneration of the interphalangeal joints. 3. Achilles tendon plantar enthesophyte. 4. Mild degeneration of the mid foot. 5. Mild subcutaneous soft tissue edema about the forefoot. Electronically authenticated by: ALDO CORADO Date: 11/24/2024 22:28
== END 2024-11-23 14:09 | disposition home or self-care (01) ==
LOC: RAD 14:08
PROVIDERS: Visit Provider Podiatrist Foot & Ankle Surgery
DX: M79.671 Pain in right foot (principal); Z98.890 Other specified postprocedural states
CPT/HCPCS: 73630

== ENCOUNTER 2025-03-09 13:21 | Outpatient (OUT) | payer MEDICARE, SELFPAY ==
--- NOTE | 2025-03-09 13:30 | XR_ITS ---
The [address] [address] Patient Name: MELBA ZAPATA MRN: [id number] date: 1955 Sex: F Assigned Patient Location: [facility] Current Patient Location: [facility] Accession/Order Number: [id number] Exam Date: 03/09/2025 15:02 Report Date: 03/09/2025 15:05 At the request of: MIGUEL COLEMAN DPYasir Procedure: XR foot RT min 3V RIGHT FOOT - 3 views CLINICAL HISTORY: Follow-up right foot surgery COMPARISON: Right foot 11/23/2024 FINDINGS: There appears be soft tissue swelling involving the first digit. There appears to be a fracture involving the plate transversing the first MTP joint. Plantar spurring. XR/XR foot RT min 3V IMPRESSION: FRACTURE INVOLVING THE PLATE TRANSVERSING THE FIRST MTP JOINT WHEN COMPARED TO THE PRIOR STUDY. Impression dictated by: Amrik Conner Jr., DIvanOIvan 03/09/2025 3:05 PM Dictation Location: [place] [address] Electronically authenticated by: [id number] Y Date: 03/09/2025 15:05
== END 2025-03-09 13:22 | disposition home or self-care (01) ==
LOC: RAD 13:26
PROVIDERS: Visit Provider Podiatrist Foot & Ankle Surgery
DX: M20.31 Hallux varus (acquired), right foot (principal); M77.31 Calcaneal spur, right foot
CPT/HCPCS: 73630

== ENCOUNTER 2025-04-04 13:48 | Outpatient (OUT) | payer MEDICARE, SELFPAY ==
--- NOTE | 2025-04-04 14:00 | CA_ITS ---
Patient Name: MELBA ZAPATA MR#: [id number] : 1955 Exam Date: 04/04/2025 Ordering Doctor: MIGUE PUENTES ECHOCARDIOGRAM REPORT PROCEDURE: CA ECHO DOPPLER COMPLETE INDICATIONS: Abnormal ECG, pacemaker COMPARISON: None. DESCRIPTION: COMPLETE ECHOCARDIOGRAM Real-time transthoracic echocardiography with 2D, M-mode, spectral and color flow Doppler performed. QUALITY: Technical quality was good. LEFT VENTRICLE: Normal chamber size. Mild concentric left ventricular hypertrophy. The septum is abnormal and motion likely related to pacemaker. LV EF: Calculated left ventricular ejection fraction is 63%. Normal left ventricular ejection fraction, (>55%). DIASTOLIC: Normal diastolic function. ATRIAL SEPTUM: LEFT ATRIUM: Normal chamber size. RIGHT ATRIUM: Normal chamber size. RIGHT VENTRICLE: Normal chamber size. Normal right ventricular systolic function. TRICUSPID VALVE: Normal mobility and thickness. No stenosis with trivial regurgitation. No evidence of pulmonary hypertension. RVSP 20 mmHg MITRAL VALVE: Normal mobility and thickness. No evidence of mitral valve stenosis. There is no mitral annular calcification. Trivial mitral regurgitation. AORTIC VALVE: Normal trileaflet appearance. No visible sclerosis. Normal leaflet mobility. No evidence of aortic valve stenosis. No aortic regurgitation. AORTIC ROOT: Normal diameter and appearance, measuring 3.2 cm. Ascending aorta is normal in size, measuring 3.6 cm. PULMONIC VALVE: Normal thickness and mobility. No stenosis. Trivial regurgitation. PERICARDIUM: No evidence of pericardial effusion. IVC: Not well visualized. PLEURA: CONCLUSION: 1. Mild concentric left ventricular hypertrophy with normal systolic function. LVEF is estimated at 60 to 65%. 2. Normal right ventricular size and systolic function. 3. No significant valvular dysfunction. 4. Normal right-sided pressures. Adult Echocardiography Procedure Report Left Ventricle LVEDD (3.7 - 5.6 cm): 4.71 cm LVESD (2.2 - 4.0 cm): 2.84 cm LVIVS thickness (0.6 - 1.2 cm): 1.32 cm LVPW thickness (0.5 - 1.0 cm): 1.23 cm e': 0.07 m/s E - e': 7.00 LVOT Max Gradient: 6.62 mm[Hg] LVOT Area (cm2): 1.29 m/s Peak Velocity (LVOT): 1.29 m/s Mean Velocity (LVOT): 0.89 m/s LVOT Diameter 2.12 cm Left Atrium LA Volume Index (2D A2C): 24.22 ml/m2 Left Atrium Systolic Dimension: 3.88 cm Mitral Valve MV E to A Ratio: 0.46 Mitral Valve A-Wave Peak Velocity: 1.10 m/s Mitral Valve E-Wave Peak Velocity: 0.51 m/s Right Ventricle Aorta AO Root Diam: 3.24 cm Ascending Ao Diam: 3.64 cm Aortic Valve Tricuspid Valve Peak Velocity (Regurgitant Flow): 2.08 m/s Pulmonic Valve Peak Gradient: 3.51 mm[Hg], 4.07 mm[Hg] Right Atrium Right Atrium Systolic Pressure: 40.00 ml, 40.00 ml Dictated by: Xavier Grigsby M.D. on 04/04/2025 at 17:58 Approved by: Xavier Grigsby M.D. on 04/04/2025 at 18:03
== END 2025-04-04 13:49 | disposition home or self-care (01) ==
LOC: CARD 13:49
PROVIDERS: Visit Provider Internal Medicine Cardiovascular Disease
DX: R94.31 Abnormal electrocardiogram [ECG] [EKG] (principal)
CPT/HCPCS: 93306

== ENCOUNTER 2025-04-26 13:23 | Outpatient (OUT) | payer MEDICARE, SELFPAY ==
--- NOTE | 2025-04-26 13:28 | CT_ITS ---
The [address] [address] Patient Name: MELBA ZAPATA MRN: [id number] date: 1955 Sex: F Assigned Patient Location: CT Current Patient Location: CT Accession/Order Number: [id number] Exam Date: 04/26/2025 15:06 Report Date: 04/26/2025 15:12 At the request of: MIGUEL COLEMAN DPM Procedure: CT foot RT wo con CT foot RT wo con 04/26/2025 1:54 PM SIGNS AND SYMPTOMS: pseudarthrosis after fusion or arthrodesis, right foot pain TECHNIQUE: Multidetector CT axial slices of the right foot without IV contrast. Multiplanar reformats were performed and viewed on a separate workstation and reviewed to further define anatomy and possible pathology. CT was performed with one or more of the following dose reduction techniques: Automated exposure control, adjustment of the mA and/or kV according to patient size, or use of iterative reconstruction technique. COMPARISON: 03/09/2025 FINDINGS: There is dorsal plate and screw fixation across the first metatarsophalangeal joint with fracture of the plate similar to that seen on the prior radiographs there is incomplete fusion across the first metatarsophalangeal joint with osteopenia and cortical irregularity on both sides of the joint. There is accompanying soft tissue swelling. There is hardware in the head of the second metatarsal. No acute displaced fracture. CT/CT foot RT wo con IMPRESSION: There is dorsal plate and screw fixation across the first metatarsophalangeal joint with fracture of the plate similar to that seen on the prior radiographs there is incomplete fusion across the first metatarsophalangeal joint with osteopenia and cortical irregularity on both sides of the joint. There is accompanying soft tissue swelling. Impression dictated by: Efren Steven M.D. 04/26/2025 3:12 PM Dictation Location: [place] [address] Electronically authenticated by: [id number] Y Date: 04/26/2025 15:12
== END 2025-04-26 13:24 | disposition home or self-care (01) ==
LOC: CT 13:23
PROVIDERS: Visit Provider Podiatrist Foot & Ankle Surgery
DX: M85.861 Other specified disorders of bone density and structure, right lower leg (principal); M96.0 Pseudarthrosis after fusion or arthrodesis; T84.293A Other mechanical complication of internal fixation device of bones of foot and toes, initial encounter; M79.89 Other specified soft tissue disorders; M85.80 Other specified disorders of bone density and structure, unspecified site
CPT/HCPCS: 73700; 77080

== ENCOUNTER 2025-06-29 15:01 | Outpatient (REF) | payer MEDICARE, SELFPAY ==
--- OUTSIDE RECORDS SUMMARY | 2024-10-12 09:00 | XMS_ITS ---
Author Organization The [facility] [place] Address [address] [place] [address] Care Team Providers Care Clinical Application Specialist Name Role Phone None, Unknown or Primary Care Provider Unavailab Dick Brody Unavailable [phone] Allergies Allergen (clinical drug ingredient) Drug/Non Drug Allergy documented on EMR Reaction Allergy Type Onset Date Status Penicillin Unknown Drug Allergy Active Results Component Value Reference Range Notes XR Foot RT (3 views) * Reviewed date:11/01/2024 01:18:15 PM Interpretation: Performing Lab: Notes/Report: REASON FOR VISIT 3 week f/u Medications Medication SIG (Take, Route, Frequency, Duration) Notes Start Date End Date Status Bactrim DS 800-160 MG 1 tablet Orally bi d for 5 days 08/26/2024 Unknown HYDROcodone-Acetaminophen 5-325 MG 1 tablet as needed Orally every 6 hrs for 7 days 08/26/2024 Unknown Lisinopril 20 MG 1 tablet Orally Once a day Active Cymbalta 20 MG 1 capsule Orally Onc e a day Active Aspirin 325 MG 1 tablet Orally bid for 30 days 08/26/2024 Not-Taking Ondansetron HCl 4 MG 1 tablet Orally eli ry 6 hours for 7 days 08/26/2024 Unknown Social History Tobacco Use: Social History Observation Description Date Details (start date - stop date) Never Smoker NA - NA Tobacco Control (Standard) Question Answer Notes Tobacco use: Nonsmoker Vital Signs Temperature 97.6 degrees Fahrenheit 10/12/20 Heart Rate 86 /min 10/12/2024 Height 66 in 10/12/2024 Oximetry 98 % 10/12/2024 Encounters Encounter Location Date Provider Diagnosis [facility] (PODIATRY) [address] [place] [address] 10/12/2024 Dick Tenorio Right foot pain M79.671 and Hallux varus (acquired), right foot M20.31 Assessments Encounter Date Diagnosis (ICD Code) Assessment Notes Treatment Notes Treatment Clinical Notes Section Notes 10/12/2024 Right foot pain (ICD-10 - M79.671) 10/12/2024 Hallux varus (acquired), right foot (ICD-10 - M20.31) Patient is roughly 6 weeks status post first MPJ fusion for hallux varus and is doing very well. She may transition to normal shoes as pain allows. She may drive as well. Recommended elevation and heat and or ice at 15-minute intervals for swelling management. She will follow-up in 6 weeks with weightbearing foot x-rays call sooner if needed Plan Of Treatment Treatment Notes Assessment Notes Hallux varus (acquired), right foot Maxine ent is roughly 6 weeks status post first MPJ fusion for hallux varus and is doing very well. She may transition to normal shoes as pain allows. She may drive as well. Recommended elevation and heat and or ice at 15-minute intervals for swelling management. She will follow-up in 6 weeks with weightbearing foot x-rays call sooner if needed Progress Notes * Kaveh TEJADAOB:1955 (69 yo F)Acc No.[id number]:10/12/2024 Follow Up Patient: Hernando YESSY Sondra Provider: Sg Tenorio DPM MS :1955 A ge:69 Y S ex:Female Date:10/12/2024 Address:[address] [place], [place] [id number] Pcp:Unknown or None Check In:12:51 PM ESTCheck O ut:01:58 PM EST Subjective: * Chief Complaints: * 3 week f/u * HPI: G eneral: 1st post op right 1st metatarsal phalangeal joint fusion with extensor tendon lengthening, capsulotomy , 2nd metatarsal phalangeal joint and exostectomy 3rd proximal inner phalangeal joint DOS 08/26/24. Denies pain at present. Patient in office today fully weightbearing in cam boot. Sutures are well aproximated with no area of concern. She does have a healing scab on great toe. She would like to transition into a normal shoe today. * Active Problem List M79.671 Right foot pain Modified On:07/28/2024/U Status:confirmed M20.31 Hallux varus (acquir ed), right foot Modified On:07/30/2024/U Status:confirmed Z96.9 Presence of function al implant, unspecified Modified On:07/30/2024/U Status:confirmed M20.41 Other hammer toe(s) (acquired), right foot Modified On:07/30/2024/U Status:confirmed * Medical History: * Surgical History: sg trammell 2023gallbladder removal unionectomy/ hammer toe correction 2-3 2018hip replacement 2019right 1st metatarsal phalangeal joint fusion with extensor tendon lengthening capsulotomy, 2nd metatarsal phalangeal joint and exostectomy 3rd proximal inner phalangeal joint Dr Tenorio 08/26/24 * Hospitalization/Major Diagno stic Procedure: N o Hospitalization History. * Family History: N o Family History documented.. * Social History: T obacco Use: T obacco Control (Standard) T obacco use: N dustin * Medications: T akingCymbalta(DULoxetine HCl) 20 MG Capsule Delayed Release Particles 1 capsule Orally Once a day Lisinopril 20 MG Tablet 1 tablet Orally Once a day Taking Cymbalta(DULoxetine HCl) 20 MG Capsule Delayed Release Particles 1 capsule Orally Once a day Taking Lisinopril 20 MG Tablet 1 tablet Orally Once a day Not-Taking/PRNAspirin 325 MG Tablet 1 tablet Orally bid Not-Taking/PRN Aspirin 325 MG Tablet 1 tablet Orally bid UnknownBactrim DS(Sulfamethoxazole-Trimethoprim) 800- 160 MG Tablet 1 tablet Orally bid HYDROcodone-Acetaminophen 5-325 MG Tablet 1 tablet as needed Orally every 6 hrs Ondansetron HCl 4 MG Tablet 1 tablet Orally every 6 hours Unknown Bactrim DS(Sulfamethoxazole-Trimethoprim) 800-160 MG Tablet 1 tablet Orally bid Unknown HYDROcodone-Acetaminophen 5-325 MG Tablet 1 tablet as needed Orally every 6 hrs Unknown Ondansetron HCl 4 MG Tablet 1 tablet Orally every 6 hours * Allergies: P enicillinno[Allergies Verified] Objective: * Vitals: H t: 66 in, Temp:97.6F, HR:86/min, Oxygen sat %:98%, Ht-cm: 167.64 cm. * Examination: P odiatry Examination: S kin is intact with coapted incisions. No SOI. Pedal pulses are palpable & SENIOR FUND ACCOUNTANT brisk. No calf pain on squeeze. No pain out of proportion. Toes are rectus. No range of motion of the first metatarsal phalangeal joint. X-rays obtained and reviewed today demonstrate interval bone healing and good bony apposition at the first metatarsal phalangeal joint with stable fixation. There is also 1 screw in the second metatarsal which is stable as well. Assessment: * Assessment: 1. H allux varus (acquired), right foot - M20.31 (Primary) 2 . R ight foot pain - M79.671 Plan: * Treatment: 2. R ight foot pain I maging: XR Foot RT (3 views) * * Procedure Codes: * * Sign off status: Completed Visit Status: C HK (Check Out) true * Provider: Sg Tenorio DPM, MS Date: 12/13/2023 Generated for Marianela nguyen/Papa/Panchoitting on: 0 06/29/2025 03:04 PM EDT History and Physical Notes * HPI (History of Present Illness) Category Sub-Category Detail Notes Category Not es General 1st post op rig ht 1st metatarsal phalangeal joint fusion with extensor tendon lengthening, capsulotomy , 2nd metatarsal phalangeal joint and exostectomy 3rd proximal inner phalangeal joint DOS 08/26/24. Denies pain at present. Patient in office today fully weightbearing in cam boot. Sutures are well aproximated with no area of concern. She does have a healing scab on great toe. She would like to transition into a normal shoe today. Examination Category Sub-Category Detail Notes Category Not es Podiatry Examination Skin is intact with coapted incisions. No SOI. Pedal pulses are palpable & SENIOR FUND ACCOUNTANT brisk. No calf pain on squeeze. No pain out of proportion. Toes are rectus. No range of motion of the first metatarsal phalangeal joint. X-rays obtained and reviewed today demonstrate interval bone healing and good bony apposition at the first metatarsal phalangeal joint with stable fixation. There is also 1 screw in the second metatarsal which is stable as well.
--- OUTSIDE RECORDS SUMMARY | 2025-02-22 10:30 | XMS_ITS ---
Author Organization The [facility] in [place] Address [address] [place] [address] Care Team Providers Care Assembler Chassis Name Role Phone None, Unknown or Primary Care Provider Unavailab Dick Brody Unavailable [phone] REASON FOR VISIT 3 month f/u Encounters Encounter Location Date Provider Diagnosis [facility] (PODIATRY) [address] [place] [address] [place] [address] 02/22/2025 Dick Tenorio Plan Of Treatment No Information Progress Notes * Kaveh TEJADAOB:1955 (70 yo F)Acc No.[id number]:02/22/2025 UNLOCKED PROGRESS NOTE Follow Up Patient: Sondra CAGE Provider: Sg Tenorio DPM, MS :1955 A ge:70 Y S ex:Female Date:02/22/2025 Address:[address] [place], [place] [id number] Pcp:Unknown or None Subjective: * Chief Complaints: * 1 . 3 month f/u. * Medical History: Objective: * Vitals: Assessment: Plan: * Treatment: * * Electronic signature of Cruz Tenorio DPM on 06/29/2025 at 03:05 PM EDT Sign off status: Pending Visit Status: O FF CANC (OFFICE CANCEL) * Provider: Sg Tenorio DPM, MS Date: 0 02/22/2025 Generated for Printi ng/Faxing/eTransmitting on: 0 06/29/2025 03:05 PM EDT
--- OUTSIDE RECORDS SUMMARY | 2025-06-29 08:30 | XMS_ITS | Encounter Summary ---
Author Organization [facility] Address [address] [place] [address] Care Team Providers Care Road Gang Supervisor Name Role Phone Unavailable Primary Care Provider Unavailabl e Reason for Visit * Reason Comments Well Women Visit Encounter Details Date Type Department Care Team (Latest Contact Info) Description 06/29/2025 8:30 AM EDT Procedure Visit [facility] [address] [place] [address] Joelle Hart NP [address] [place] [address] Well woman exam with routine gynecological exam; Encounter for screening mammogram for malignant neoplasm of breast Social History Tobacco Use Types Packs/Day Years Used Date Smoking Tobacco: Never Assessed Comments No Sex and Gender Information Value Date Recorded Sex Assigned at Not on file Legal Sex Female 6:50 PM EDT Gender Identity Not on file Sexual Orientation Not on file documented as of this encounter Last Filed Vital Signs Vital Sign Reading Time Taken Comments Blood Pressure 150/100 06/29/2025 8:30 AM EDT Pulse - - Temperature - - Respiratory Rate - - Oxygen Saturation - - Inhaled Oxygen Concentration - - Weight 107 kg (235 lb 8 oz) 06/29/2025 8:30 AM E DT Height - - Body Mass Index 39.19 05/29/2022 12:00 PM EDT documented in this encounter Progress Notes * Joelle Hart NP - 06/29/2025 8:30 AM EDT Reason for Appointment: Patient ID: Sondra Tejada is a 70 y.o. female who presents for Well Women Visit Patient presents today for Annual Exam. MEDICATIONS Current Outpatient Medications Medication Instructions cholecalciferol (VITAMIN D-3) 125 mcg, Daily DULoxetine (CYMBALTA) 60 mg, Oral, Daily lisinopril-hydroCHLOROthiazide 20-25 MG tablet 1 tablet, Oral, Daily ALLERGIES Allergies Allergen Reactions Iodinated Contrast Media Swelling and Hives Other Reaction(s): Hives Other Reaction(s): Unknown OK for topical iodine Penicillins Anaphylaxis Other Reaction(s): hives, pass out Other Reaction(s): Hives, Passed out, Unknown Tolerated cefazolin Wound Dressing Adhesive Other Reaction(s): redness Iodine Swelling Cat Scan Dye Latex Hives Other Reaction(s): redness, itching PROBLEMS Active Ambulatory Problems Diagnosis Date Noted No Active Ambulatory Problems Resolved Ambulatory Problems Diagnosis Date Noted No Resolved Ambulatory Problems No Additional Past Medical History HISTORY PAST MEDICAL HISTORY SOCIAL HISTORY No past medical history on file. Social History Tobacco Use Smoking status: Not on file Smokeless tobacco: Not on file Substance Use Topics Alcohol use: Not on file Drug use: Not on file FAMILY HISTORY No family history on file. SURGICAL HISTORY No past surgical history on file. REVIEW OF SYSTEMS Review of Systems: Review of Systems Constitutional: Negative. HENT: Negative. Eyes: Negative. Respiratory: Negative. Cardiovascular: Negative. Gastrointestinal: Negative. Genitourinary: Negative. Musculoskeletal: Negative. Skin: Negative. Neurological: Negative. All other systems reviewed and are negative. Hematological: Negative. Endocrine: Negative. Allergic/Immunologic: Negative. OBJECTIVE Objective: Physical Exam Constitutional: Appearance: Normal appearance. She is well-developed. Genitourinary: Vulva normal. Breasts: Breasts are soft. Right: Normal. Left: Normal. Cardiovascular: Rate and Rhythm: Normal rate and regular rhythm. Pulmonary: Effort: Pulmonary effort is normal. Breath sounds: Normal breath sounds. Abdominal: General: Bowel sounds are normal. There is no distension. Palpations: Abdomen is soft. Tenderness: There is no abdominal tenderness. There is no guarding or rebound. Musculoskeletal: General: No swelling. Normal range of motion. Right lower leg: No edema. Left lower leg: No edema. Neurological: Mental Status: She is alert and oriented to person, place, and time. Skin: General: Skin is warm and dry. Psychiatric: Mood and Affect: Mood normal. Behavior: Behavior normal. Vitals and nursing note reviewed. Exam conducted with a subway conductor present. Vitals: Estimated body mass index is 39.19 kg/m?? as calculated from the following: Height as of 05/29/22: 5' 5 . Weight as of this encounter: 235 lb 8 oz. BP: (!) 150/100 No LMP recorded (lmp unknown). Patient is postmenopausal. ASSESSMENT & PLAN ICD-10-CM 1. Well woman exam with routine gynecological exam Z01.419 THIN PREP TIS PAP AND HR HPV DNA 2. Encounter for screening mammogram for malignant neoplasm of breast Z12.31 Bilateral screening mammogram Bilateral screening mammogram Annual Exam: Patient presents today for an annual exam. Patient states she is doing well and has no complaints. Pap was obtained without difficulty. Orders Placed This Encounter Procedures Bilateral screening mammogram Follow Up: Patient advised at last visit to treat osteoporosis with Prolia and this was sent to [facility] on May 24. Patient was given scheduling contact information and if she has any difficulty obtaining the injection she is to reach out to our office to help facilitate prescribed treatment. Patient with elevated blood pressure today. She did not take her medications today and denies chest pain or shortness of breath and will continue to monitor B/P she is to reach out to PCP if no improvement. Patient is to return in one year for annual unless needed otherwise. Documented by Joelle Hart NP on behalf of: Joelle Hart NP documented in this encounter Plan of Treatment Scheduled Orders Name Type Priority Associated Diagnoses Orde r Schedule Bilateral screening mammogram Imaging Routine Encounter for screening mammogram for malignant neoplasm of breast Expected: 06/29/2025, Expires: 08/29/2026 THIN PREP TIS PAP AND HR HPV DNA Pathology and Cytology Routine Well woman exam with routine gynecological exam Ordered: 06/29/2025 documented as of this encounter Visit Diagnoses Diagnosis Well woman exam with routine gynecological exam Routine gynecological examination Encounter for screening mammogram for malignant neoplasm of breast documented in this encounter
--- OUTSIDE RECORDS SUMMARY | 2025-06-29 15:05 | XMS_ITS | Encounter Summary ---
Author Organization [facility] Address [address] [place] [address] Care Team Providers Care Crown Wheel Assembler Name Role Phone Pcp, No Primary Care Provider Laney Stroud MD Primary Care Provider Roya Guthrie DO Primary Care Provider Camryn Verde CNP Primary Care Provider [phone] Source Comments In the event this information is protected by the Federal Confidentiality of Alcohol and Drug AbusePatient Records regulations: The Federal rules restrict any use of the information to criminally investigate or prosecute any alcohol or drug abuse patient.[facility] Reason for Visit * Reason Comments Radiology Contrast Reaction Encounter Details Date Type Department Care Team (Late st Contact Info) Description 12/19/2006 Radiology Radiology [address] [address] Pcp, No Radiology Contrast Reaction Social History Tobacco Use Types Packs/Day Years Used Date Smoking Tobacco: Never Assessed Comments No Sex and Gender Information Value Date Recorded Sex Assigned at Not on file Legal Sex Female 8:06 AM EST Gender Identity Not on file Sexual Orientation Not on file documented as of this encounter Progress Notes * 12/19/2006 4:06 PM ESTNurse Note: Time: [address] for contrast reaction. Pt awake, alert,denies SOB, only complaint is left eyelid edema and itching. Time: 1515 BP: 125/74 P: 69 Pulse Ox: 96% on room air. Pt. examined by Dr. liliana Ibarra, who ordered Benadryl 50 mg. po, which was given at 1516. PO fluids forced. Pt. observed for another 30 minutes, discharged per Dr. Ibarra in good condition. Eyelid still edematous, ithing somewhat less.Friend todrive pt. home, instructions given to pt. regarding premed for any future contrast procedures. Angel Bray RN {RADIO DEPARTMENT:21086} Sondra Tejada [id number] December 19, 2006 PREMEDICATED {YES OR NO:98721:: Yes } EXAM: CONTRAST: SEVERITY {RADIO SEVERITY:62480} TREATMENT {RADIO TREATMENT:68347} MENTAL STATUS {RADIO MENTAL STATUS:10838:a} IMPRESSION RECOMMENDATIONS Sign: documented in this encounter Plan of Treatment Not on file documented as of this encounter Visit Diagnoses Not on filedocumented in this encounter Care Teams Crown Wheel Assembler Relationship Specialty Start Date End Date Pcp, No PCP - General 11/18/06 06/02/07 Laney Coronel MD PCP - General Family Medicine 08/03/13 11/08/13 Roya Guthrie DO PCP - General Family Medicine 11/09/13 06/12/17 Camryn Verde CNP PCP - General Family Medicine 06/13/17 documented as of this encounter
--- OUTSIDE RECORDS SUMMARY | 2025-06-29 15:05 | XMS_ITS | Clinical Summary ---
Author Organization [facility] Address [address] [place] [address] Care Team Providers Care Cylinder Valve Repairer Name Role Phone AmmonCmaryn rueda Rodo PEDROZA Primary Care Provider [phone] Allergies Active Allergy Reactions Criticality Noted Date Comments Contrast Dye Hives Medium 12/19/2006 OK for topical iodine Penicillins 12/04/2006 Medications hydrochlorothiazi de 25 mg tablet Take 25 mg by mouth once daily. Active nicotine 21 mg/24 hrIndications:Geraldo otine dependence, uncomplicated Apply 1 Patch as directed every 24 hours. 30 Patch 1 4 Active escitalopram 10 mg tablet Take 1tab daily x 1-2weeks, then two tabs daily thereafter 60 tablet 3 4 Active buPROPion SR (WELLBUTRIN SR) 150 mg 12 hr tablet Take 150 mg by mouth twice daily. Active amLODIPine (NORVASC) 5 mg tablet Take 5 mg by mouth once daily. Active Active Problems Problem Noted Date Diagnosed Date CTS (carpal tunnel syndrome) 02/11/2014 Itching 02/11/2014 Nicotine dependence, uncomplicated 02/11/2014 Secondary osteoarthritis of multiple sites 02/11 ANNA positive 02/11/2014 Knee pain, bilateral 02/11/2014 Osteopenia 02/11/2014 Pathologic fracture of other specified site 02/01 Height loss 02/11/2014 Stress fracture of foot 02/11/2014 Calculus of kidney 02/27/2007 Kidney stones Hypertension Smoker Family History Medical History Relation Comments Arthritis Father Hypertension Father Cancer Maternal Grandfather Cancer Maternal Grandmother Diabetes Maternal Grandmother Arthritis Mother Diabetes Mother Hypertension Mother Relation Status Comments Father Maternal Grandfather Maternal Grandmother Mother Social History Tobacco Use Types Packs/Day Years Used Date Smoking Tobacco: Light Smoker Alcohol Use Standard Drinks/Week Comments No 0 (1 standard drink = 0.6 oz pur e alcohol) Comments No Sex and Gender Information Value Date Recorded Sex Assigned at Not on file Legal Sex Female 8:06 AM EST Gender Identity Not on file Sexual Orientation Not on file 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 Not on file Not on file Last Filed Vital Signs Vital Sign Reading Time Taken Comments Blood Pressure 135/79 06/17/2017 12:54 PM EDT Pulse 83 06/17/2017 12:54 PM EDT Temperature 36.2 C (97.1 F) 02/20/2007 11:20 AM EDT Respiratory Rate 20 06/17/2017 12:5 4 PM EDT Oxygen Saturation 96% 12/19/2006 11: 23 AM EST Inhaled Oxygen Concentration - - Weight 99.8 kg (220 lb) 06/17/2017 12:5 4 PM EDT Height 167.6 cm (5' 6 ) 06/17/2017 12:5 4 PM EDT self stated ht/wt Body Mass Index 35.51 06/17/2017 12:54 PM EDT Plan of Treatment Health Maintenance Due Date Last Done Comments Anxiety Screening 1973 Depression Screening 1973 Hepatitis C Screening 1973 DTaP,Tdap,Td Vaccine (1 - Tdap) [address] Colonography 02/22/2000 Cologuard (FIT-DNA) 02/22/2000 Colonoscopy 02/22/2000 Colorectal Cancer Screening 02/22/2000 Fecal Occult Blood 02/22/2000 Lipid Screening 02/22/2000 Sigmoidoscopy 02/22/2000 Pneumococcal Vaccine: 50+ (1 of 1 - PCV) 2005 Shingrix Vaccine (1 of 2) 2005 Diabetes Screening 02/20/2010 02/20/2007, 12/19/2006 Bone Density Screening 02/22/2020 Advance Directive Discussion 11/03/2024 Influenza Vaccine (#1) 2025 RSV Vaccine (1 - 1-dose 75+ series) 2030 Procedures Procedure Name Priority Date/Time Associated Diagnosis Comments COMPREHENSIVE METABOLIC PANEL Routine 02/20/2007 10:00 AM EDT Stricture Of Ureter from Last 3 Months or Most Recently Relevant to Health Maintenance Results * COMP METABOLIC PANEL (02/20/2007 10:00 AM EDT) Protein, Total 7.1 6.0 - 8.4 g/dL [facility] Albumin 4.3 3.5 - 5.0 g/dL [facility] Calcium 9.7 8.5 - 10.5 mg/dL [facility] Bilirubin, Total 0.4 0.0 - 1.5 mg/dL [facility] Alkaline Phosphatase 96 40 - 150 U/L [facility] AST 22 7 - 40 U/L [facility] Glucose 81 65 - 100 mg/dL [facility] BUN 18 8 - 25 mg/dL [facility] Creatinine 0.8 0.7 - 1.4 mg/dL [facility] Sodium 141 132 - 148 mmol/L [facility] Potassium 4.8 3.5 - 5.0 mmol/L [facility] Chloride 106 98 - 110 mmol/L [facility] CO2 25 23 - 32 mmol/L [facility] Anion Gap 10 0 - 15 mmol/L [facility] ALT 21 0 - 45 U/L [facility] Blood specimen (specimen) BLOOD SPECIMEN / Unknown 02/20/2007 10:00 AM EDT us Thaddeus Rivas MD LABORATORY Final Result Performing Organization Address City/State/[facility] Co de Phone Number [facility] [address] [place] [address] from Last 3 Months or Most Recently Relevant to Health Maintenance [place] [address] [employer] Care Teams Cylinder Valve Repairer Relationship Specialty Start Date End Date Camryn Verde CNP PCP - General Family Medicine 06/13/17
--- OUTSIDE RECORDS SUMMARY | 2025-06-29 15:05 | XMS_ITS | Clinical Summary ---
Author Organization [facility] Address [address] [place] [address] Care Team Providers Care Load Checker Name Role Phone Beatrice Barnes NP Primary Care Provider [phone] Allergies Active Allergy Reactions Criticality Noted Date Comments Iodinated Contrast Media Hives Medium 12/19/2006 OK for topical iodine Iodine Swelling 09/30/2023 Cat Scan Dye Latex Hives 05/27/2024 Penicillins Unknown 12/04/2006 Tolerated cefazolin Medications DULoxetine (Cymbalta) [address] capsule Take 60 mg by mouth in the morning. Do not crush or chew. Active albuterol 90 mcg/actuation inhaler INHALE 2 PUFFS EVERY 6 HOURS 04/14/2024 Active Wellbutrin SR 150 mg 12 hr tablet Take 150 mg by mouth in the morning and at bedtime. 03/19/2024 Active cholecalciferol (Vitamin D-3) 1,250 mcg (50,000 unit) capsule Take 1,250 mcg by mouth 1 (one) time per week. Takes on friday04/14/2024 Active lisinopriL-hydr ochlorothiazide 20-25 mg tablet Take 1 tablet by mouth once daily as directed. 04/14/2024 Active nicotine (Nicoderm CQ) 21 mg/[address] 1 patch on the skin 1 (one) time each day at the same time. Active HYDROcodone-jim taminophen ([place]) 5-325 mg tablet Take 1 tablet by mouth every 6 (six) hours if needed for severe pain (8-10 pain score). Active tiotropium (Spiriva with HandiHaler) 18 mcg inhalation capsule 18 mcg. 04/14/2024 Active aspirin 325 mg tablet Take 1 tablet by mouth Twice daily at 6am and 6pm. 08/26/2024 Active ondansetron (Zofran) 4 mg tablet Take 1 tablet by mouth every 6 (six) hours. 08/26/2024 Active oxyBUTYnin (Ditropan) 5 mg tablet Take 5 mg by mouth two times daily. 09/15/2024 Active tamsulosin (Flomax) 0.4 mg 24 hr capsule Take 0.4 mg by mouth in the morning. 09/15/2024 Active Active Problems Problem Noted Date Diagnosed Date Anxiety 03/15/2025 Intra-articular fracture of distal end of right radius with volar angulation with routine healing 03/15/2025 Oth intartic fracture of lower end of right radi us, init 03/15/2025 Pain in right foot 03/15/2025 Hallux varus (acquired), right foot 08/24/2024 History of UTI 08/24/2024 Other hammer toe(s) (acquired), right foot 08/24 Presence of functional implant, unspecified 08/04 Complete heart block 05/27/2024 S/P cholecystectomy 05/27/2024 Pre-operative cardiovascular examination 024 Assessment & Plan (05/17/2024 5:41 AM EDT): RCRI=1 points Class II Risk 6.0 % 30-day risk of , MT, or cardiac arrest Pt has good functional/aerobic capacity- > 4 METS Reviewed EKG with Dr Eller-electrophysiology and he recommends that in light she is asymptomatic with Ashley-aliyah she may proceed with planned surgery. From a cardiac perspective pt may proceed with surgery, she is a low risk for a low to moderate risk procedure. Please monitor hemodynamics carefully and prevent any major fluid shifts. 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 Mixed hyperlipidemia 05/14/2024 Neck pain on right side 05/14/2024 Worsening headaches 05/14/2024 Need for tetanus booster 05/14/2024 Nocturia 05/14/2024 OA (osteoarthritis) of hip 05/14/2024 Patient had no falls in past year 05/14/2024 Personal history of tobacco use 05/14/2024 Sinus congestion 05/14/2024 Urge incontinence 05/14/2024 Urinary urgency 05/14/2024 Vitamin D deficiency 05/14/2024 Mobitz type I Wenckebach atrioventricular block 05/14/2024 Assessment & Plan (05/14/2024 3:05 PM EDT): Routine stress test and 30 day event monitor To assess chronotropic response and for any higher grade AV block. Hypertension 10/02/2023 10/02/2023 Assessment & Plan (05/15/2024 7:08 PM EDT): Hypertension is unchanged. Continue current medications. Blood pressure will be reassessed at the next regular appointment. Smoker 10/02/2023 10/02/2023 Assessment & Plan (05/15/2024 7:09 PM EDT): Recommended smoking cessation Fracture of radius 09/10/2023 Overview (05/14/2024): R distal radius fx ANNA positive 02/11/2014 10/02/2023 CTS (carpal tunnel syndrome) 02/11/2014 Height loss 02/11/2014 10/02/2023 Itching 02/11/2014 10/02/2023 Knee pain, bilateral 02/11/2014 10/02/2023 Nicotine dependence, uncomplicated 02/11/2014 10/02/2023 Osteopenia 02/11/2014 10/02/2023 Pathologic fracture of other specified site 02/0110/02/2023 Secondary osteoarthritis of multiple sites 02/1110/02/2023 Stress fracture of foot 02/11/2014 10/02/20 Calculus of kidney 02/27/2007 10/02/2023 Encounters Date Type Department Care Team Description 04/19/2025 6:25 PM EDT Ancillary Procedure [facility] [address] [place] [address] Adjustment and management of cardiac pacemaker 04/17/2025 Orders Only [facility] [address] [place] [address] Winston Eller MD 04/05/2025 Orders Only [facility] [place] [address] [place] [id number] Provider, MD Veronica from Last 3 Months Family History Medical History Relation Name Comments Transient ischemic attack Father Stroke Maternal Grandmother Atrial fibrillation Mother Diabetes Mother end stage renal disease Mother Relation Name Status Comments Father Maternal Grandmother Mother Sister Alive Social History Tobacco Use Types Packs/Day Years Used Date Smoking Tobacco: Every Day Cigarettes Smokeless Tobacco: Never Tobacco Cessation:Ready to Q uit: Not Asked; Counseling Given: Not Answered Alcohol Use Standard Drinks/Week Comments Not Currently 0 (1 standard drink = 0.6 oz pur e alcohol) occasional [facility] Utilities Answer Date Recorded In the past 12 months has e electric, gas, oil, or water [employer] threatened to shut off services in your home? No 05/27/2024 Humiliation, Afraid, Rape, and Kick questionnair e Answer Date Recorded Within the last year, have y ou been afraid of your partner or ex-partner? No 05/27/2024 Emotionally Abused Not on file 05/27/2024 Physically Abused Not on file 05/27/2024 Sexually Abused Not on file 05/27/2024 Overall Financial Resource Strain (CARDIA) Answe r Date Recorded How hard is it for you to pa y for the very basics like food, housing, medical care, and heating? Not hard at all 05/27/2024 Transportation Answer Date Recorded In the past 12 months, has l ack of transportation kept you from medical appointments or from getting medications? No 05/27/2024 Lack of Transportation (Non-Medical) Not on file 05/27/2024 Housing Stability Vital Sign Answer Rohith e Recorded Unable to Pay for Housing in the Last Year Not o n file 05/27/2024 Number of Places Lived in the Last Year Not on f ile 05/27/2024 In the last 12 months, was t here a time when you did not have a steady place to sleep or slept in a residential (including now)? No 05/27/2024 Hunger Vital Sign Answer Date Recorded Within the past 12 months, y ou worried that your food would run out before you got the money to buy more. Never true 05/27/20 24 Ran Out of Food in the Last Year Not on file 05/27/2024 Comments Unknown Sex and Gender Information Value Date Recorded Sex Assigned at Not on file Legal Sex Female 11:52 PM EDT Gender Identity Not on file Sexual Orientation Not on file Last Filed Vital Signs Vital Sign Reading Time Taken Comments Blood Pressure 135/85 03/15/2025 2:45 PM EDT Pulse 80 03/15/2025 2:45 PM EDT Temperature 36.4 C (97.5 F) 05/29/2024 7:52 AM EDT Respiratory Rate 12 05/29/2024 7:52 AM EDT Oxygen Saturation 97% 03/15/2025 2:45 PM EDT Inhaled Oxygen Concentration - - Weight 105 kg (232 lb) 03/15/2025 2:45 PM EDT Height 167.6 cm (5' 6 ) 03/15/2025 2:45 PM EDT Body Mass Index 37.45 03/15/2025 2:45 PM EDT Plan of Treatment Upcoming Encounters Date Type Department Care Team (Late st Contact Info) Description 09/06/2025 9:00 AM EST Ancillary Procedure [facility] [address] [place] [address] 09/06/2025 9:15 AM EST Office Visit [facility] [address] [place] [address] Winston Eller MD [address] [place] [address] Health Maintenance Due Date Last Done Comments CT Colonography 1955 Colonoscopy 1955 Colorectal Cancer Screening 1955 FIT-DNA 1955 FIT 1955 FOBT 1955 Medicare Annual Wellness (AWV) 1955 Sigmoidoscopy 1955 Depression Screening 1967 Mammogram 1995 Zoster Vaccines (1 of 2) 2005 Fall Risk Screening 02/22/2020 COVID-19 Vaccine ( season) 2024 02/02/2021, 01/12/2021 Influenza Vaccine (#1) 2025 , 08/12/2023, 10/02/2021, Additional history exists Adult Tetanus 04/14/2034 04/14/2024 Pneumococcal Vaccine: 50+ Years Completed 10/30/2023, 10/02/2021 HIB Vaccines Aged Out No longer eligi ble based on patient's age to complete this topic HPV Vaccines Aged Out No longer eligi ble based on patient's age to complete this topic IPV Vaccines Aged Out No longer eligi ble based on patient's age to complete this topic Meningococcal B Vaccine Aged Out No l onger eligible based on patient's age to complete this topic Meningococcal Vaccine Aged Out No josi marilyn eligible based on patient's age to complete this topic Rotavirus Vaccines Aged Out No longer eligible based on patient's age to complete this topic Medical Devices Implanted Type Area Market Research Assistant Device Identifier Shelf Expiration Date Model / Serial / Lot Pacemaker,Amvi anya Kimberly Melvin-T - [id number] - [id number] Implanted:Qty: 1 on 05/28/2024 by Billy Mckay MD at [facility] Implantable Loop Recorder [employer] [id number] 11/02/2025 [id number] / [id number] / LeadOc S 53, - [id number] - [id number] Implanted:Qty: 1 on 05/28/2024 by Billy Mckay MD at [facility] Lead [employer] [id number] 04/02/2026 [id number] / [id number] 1 / Lead,Ines Renae 45 - [id number] - [id number] Implanted:Qty: 1 on 05/28/2024 by Billy Mckay MD at [facility] Lead [employer] [id number] 04/02/2026 [id number] / [id number] / Procedures Procedure Name Priority Date/Time Associated Diagnosis Comments CARDIAC DEVICE CHECK CHECK - REMOTE Routine 05/16/2025 6:42 PM EDT Adjustment and management of cardiac pacemaker CARDIAC DEVICE CHECK - REMOTE - PACEMAKER Routine 04/17/2025 12:00 AM EDT COMPLETE TRANSTHORACIC ECHO (TTE) W/WO IMAGING AGENT, STRAIN, 3D, BUBBLE STUDY Routine 04/04/2025 9:37 AM EDT from Last 3 Months Results * CARDIAC DEVICE CHECK - REMOTE - PACEMAKER (05/16/2025 6:42 PM EDT) us Billy Mckay MD CV IMPLANTABLE CARDIAC DEVICE MI OCEDURES Final Result CPACS * Cardiac device check - Remote pacemaker (04/17/2025 12:00 AM EDT) Anatomical Region Laterality Modality Other 04/17/2025 us Winston Eller MD CV IMPLANTABLE CARDIAC DEVICE MI OCEDURES Final Result * Complete Echo (TTE) w/wo Imaging Agent, Strain, 3D, Bubble Study (04/04/2025 9:37 AM EDT) Anatomical Region Laterality Modality Ultrasound us Historical Provider CV ECHO PROCEDURES Final Result from Last 3 Months Insurance MEDICARE Advance Directives * Full Code (Latest Code Status on File) Date Activated Date Inactivated Comments 05/27/2024 11:51 AM 05/29/2024 3:33 PM Care Teams Load Checker Relationship Specialty Start Date End Date Beatrice Barnes NP [facility] [address] [place] [address] [address] PCP - General Family Medicine 05/03/24
--- OUTSIDE RECORDS SUMMARY | 2025-06-29 15:05 | XMS_ITS | Patient Health Record ---
Author Organization [facility] in [place] Address [address] [place] [address] Care Team Providers Care Usability Architect Name Role Phone None, Unknown or Primary Care Provider Unavailab Miguel Brody Unavailable [phone] Alan Deisy Unavailable [phone] Allergies Allergen (clinical drug ingredient) Drug/Non Drug Allergy documented on EMR Reaction Allergy Type Onset Date Status Penicillin Unknown Drug Allergy Active Results Component Value Reference Range Notes XR foot RT min 3V (Not yet r eviewed by provider) Interpretation: Performing Lab: Notes/Report: Source Facility: [place] [address] XRay Report Signed Patient: MELBA TEJADA MR#: [id number] : 1955 Acct:[id number] Age/Sex: 69 / F ADM Date: 09/21/24 Loc: RAD Attending Dr: Miguel Tenorio D.P.M. Ordering Physician: Miguel Tenorio D.P.M. Date of Service: 09/21/24 Procedure(s): XR foot RT min 3V Accession Number(s): [id number] cc: Miguel Tenorio D.P.M.; Physician,Non-Staff [place] [id number] Patient Name: MELBA TEJADA MRN: [id number]:[id number] date: 1955 Sex: F Assigned Patient Location: RAD Current Patient Location: SURGOUT Accession/Order Number: [id number] Exam Date: 09/21/2024 13:05 Report Date: 09/23/2024 06:33 At the request of: MIGUEL TENORIO Procedure: XR foot RT min 3V PROCEDURE: XR foot RT min 3V HISTORY: Right Foot COMPARISON: XR foot right 08/26/2024 FINDINGS: BONES:Mechanical fusion the first metatarsophalangeal joint via dorsal plate and screws. Single screw within head of second metatarsal. 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 SOFT TISSUES:Mild distal dorsal soft tissue swelling. EFFUSION:None visible. OTHER: Negative. XR/XR foot RT min 3V IMPRESSION: 1 stable surgical changes without evidence of hardware failure or change in alignment. Electronically authenticated by: ROSALINO WHITLEY Date: 09/23/2024 06:33 Dictated By: Rosalino Whitley M.D. Signed By: 09/23/24635 DD/ 2 TD/TT: Gear Machinist: [place] [address] XRay Report Signed Patient: ISABEL TEJADA MR#: [id number] : 1955 Acct:[id number] Age/Sex: 69 / F ADM Date: 09/21/24 Loc: RAD Attending Dr: Miguel Tenorio D.P.M. Ordering Physician: Miguel Tenorio D.P.M. Date of Service: 09/21/24 Procedure(s): XR boaz t RT min 3V Accession Number(s): [id number] cc: Miguel Tenorio D.P.M.; Physician,Non-Staff Miguel A [facility] [place] [id number] Patient Name: MELBA TEJADA MRN: [id number]:[id number] date: 1955 Sex: F Assigned Patient Loc ation: RAD Current Patient Loca tion: [facility] Accession/Order Numb er: [id number] Exam Date: 13:05 Report Date: 09/23/2024 06:33 At the request of: MIGUEL TENORIO Procedure: XR foot R T min 3V PROCEDURE: XR foot R T min 3V HISTORY: Right Foot COMPARISON: XR foot right 08/26/2024 FINDINGS: BONES:Mechanical fus ion the first metatarsophalangeal joint via dorsal plate and screws. Single s crew within head of second metatarsal. Multifocal mild-moderate degene rative joint disease of the interphalangeal joints. SOFT TISSUES:Mild di stal dorsal soft tissue swelling. EFFUSION:None visible. OTHER: Negative. X R/XR foot RT min 3V IMPRESSION: 1 stable surgical ch anges without evidence of hardware failure or change in alignment. Electronically authenticated by: ROSALINO WHITLEY Date: 09/23/2024 06:33 Dictated By: Rosalino Whitley M.D. Signed By: 09/23/24635 DD/ 2 TD/TT: Gear Machinist: FL fluoroscopy <1hr NON-READ (Not yet reviewed by provider) Interpretation: Performing Lab: Notes/Report: Source Facility: [place] [address] Fluoroscopy Report Signed Patient: MELBA TEJADA MR#: [id number] : 1955 Acct:[id number] Age/Sex: 69 / F ADM Date: 08/26/24 [facility] Dr: Miguel Tenorio D.P.M. Ordering Physician: Miguel Tenorio D.P.M. Date of Service: 08/26/24 Procedure(s): FL fluoroscopy <1hr NON-READ Accession Number(s): [id number] cc: Miguel Tenorio D.P.M.; Physician,Non-Staff Miguel A [facility] [place] [address] Patient Name: MELBA TEJADA MRN: [id number] date: 1955 Sex: F Assigned Patient Location: [facility] Current Patient Location: Accession/Order Number: [id number] Exam Date: 08/26/2024 09:56 Report Date: 08/27/2024 07:14 At the request of: MIGUEL TENORIO Procedure: FL fluoroscopy <1hr NON-READ EXAM: FL fluoroscopy <1hr NON-READ HISTORY: TECHNIQUE: FINDINGS: Please see Operative Report. Electronically authenticated by: RADIOLOGIST NO Date: 08/27/2024 07:14 Dictated By: JazminRadiologist Signed By: 08/27/24716 DD/ 3 TD/TT: Gear Machinist: [place] [address] Fluoroscopy Report Signed Patient: ISABEL TEJADA MR#: [id number] : 1955 Acct:[id number] Age/Sex: 69 / F ADM Date: 08/26/24 Loc: SURGOUT Attending Dr: Miguel Tenorio D.P.M. Ordering Physician: Miguel Tenorio D.P.M. Date of Service: 08/26/24 Procedure(s): FL fluoroscopy <1hr NON-READ Accession Number(s): [id number] cc: Miguel Tenoroi D.P.M.; Physician,Non-Staff M.DIvan [facility] [place] [address] Patient Name: MELBA TEJADA MRN: [id number]:[id number] date: 1955 Sex: F Assigned Patient Loc ation: [facility] Current Patient Location: Accession/Order Numb er: [id number] Exam Date: 09:56 Report Date: 08/27/2024 07:14 At the request of: MIGUEL TENORIO Procedure: FL fluoro scopy <1hr NON-READ EXAM: FL fluoroscopy <1hr NON-READ HISTORY: TECHNIQUE: FINDINGS: Please see Operative Report. Electronically authenticated by: RADIOLOGIST NO Date: 08/27/2024 07:14 Dictated By: JazminRadiologist Signed By: 08/27/24716 DD/ 3 TD/TT: Gear Machinist: Prothrombin Time INR (Not ye t reviewed by provider) Interpretation: Performing Lab: Notes/Report: [facility] , Prothrombin Time 12.4 9.0-11.6 sec INR 1.19 DESIRED INR: 2.0-3.0 CONDITIONS NOT LISTED BELOW 2.5-3.5 RECURRENT THROMBOSIS 2.5-3.5 FOR PROSTHETIC HEART VALVE REPLACEMENT Performing Lab: see note ML - [facility] LB PTT (Not yet reviewed by pro vider) Interpretation: Performing Lab: Notes/Report: [facility] , Partial Thromboplastin Time 26.8 22.3-36.2 sec Performing Lab: see note ML - [facility] LB PROF CHEM 8 (BAS METB) (Not yet reviewed by provider) Interpretation: Performing Lab: Notes/Report: [facility] , Sodium 142 136-145 mmol/L Potassium 4.3 3.5-5.1 mmol/L Chloride 106 98-107 mmol/L Carbon Dioxide 29.1 21.0-32.0 mmol/L Anion Gap 11.2 Glucose 111 74-106 mg/dL Blood Urea Nitrogen 23.0 7.0-18.0 mg/dL Creatinine 1.04 0.55-1.02 mg/dL Estimated GFR ( Cate >60 >=60 mL/min/1.73m 2 Estimated GFR (Non- Clara 53 >=60 mL/min/1.73m 2 BUN Creatinine Ratio 22.1 Calcium 9.6 8.5-10.1 mg/dL Performing Lab: see note ML - [facility] LB CBC AUTO DIFF (Not yet revie wed by provider) Interpretation: Performing Lab: Notes/Report: [facility] , White Blood Count 10.6 4.0-11.0 10 3/uL Red Blood Count 4.84 4.20-5.40 10 6/uL Hemoglobin 15.2 12.0-16.0 g/dL Hematocrit 47.5 36.0-48.0 % Mean Corpuscular Volume 98.1 81.0-99.0 fL Mean Corpuscular Hemoglobin 31.4 26.7-34.0 pg Mean Corpuscular HGB Conc 32.0 29.9-35.2 g/dL Red Cell Distribution Width 12.4 11.0-15.0 % Platelet Count 271 150-450 10 3/uL Mean Platelet Volume 9.5 9.5-13.5 fL Neutrophils Percent Auto 65.3 43.0-75.0 % Lymphocytes Percent Auto 22.7 20.5-60.0 % Monocytes Percent Auto 7.6 1.7-12.0 % Eosinophils Percent Auto 3.2 0.9-7.0 % Basophils Percent Auto 0.9 0.2-2.0 % Immature Granulocytes Pct Auto 0.3 0.0-0.5 % Neutrophils Absolute Auto 6.9 1.4-6.5 10 3/uL Lymphocytes Absolute Auto 2.4 1.2-3.8 10 3/uL Monocytes Absolute Auto 0.8 0.3-0.8 10 3/uL Eosinophils Absolute Auto 0.3 0.0-0.7 10 3/uL Basophils Absolute Auto 0.1 0.0-0.1 10 3/uL Immature Granulocytes Abs Auto 0.03 0.00-0.03 10 3/uL Performing Lab: see note ML - [facility] LB XR foot RT min 3V (Not yet r eviewed by provider) Interpretation: Performing Lab: Notes/Report: Source Facility: [place] [address] [place] [address] XRay Report Signed Patient: MELBA TEJADA MR#: [id number] : 1955 Acct:[id number] Age/Sex: 69 / F ADM Date: 07/28/24 Loc: EC Attending Dr: Miguel Tenorio D.P.M. Ordering Physician: Miguel Tenorio D.P.M. Date of Service: 07/28/24 Procedure(s): XR foot RT min 3V Accession Number(s): [id number] cc: Miguel Tenorio D.P.M.; Physician,Non-Staff Miguel A [place] [address] Patient Name: MELBA TEJADA MRN: [id number] date: 1955 Sex: F Assigned Patient Location: Current Patient Location: Accession/Order Number: [id number] Exam Date: 07/28/2024 12:34 Report Date: 07/30/2024 06:40 At the request of: MIGUEL TENORIO Procedure: XR foot RT min 3V PROCEDURE: XR foot RT min 3V HISTORY: RIGHT FOOT PAIN COMPARISON: XR foot right 05/08/2022 FINDINGS: BONES:Stable, chronic marked medial deviation of the first toe. Prior osteotomy and repair of distal first metatarsal. Single screw within head of second metatarsal. Possible prior bunionectomy. Mild degenerative changes of the third metatarsophalangeal joint and resection of the head of the third proximal phalanx. Small calcaneal plantar spur. SOFT TISSUES:No visible soft tissue swelling. EFFUSION:None visible. OTHER: Negative. XR/XR foot RT min 3V IMPRESSION: 1. Stable chronic changes detailed above. No appreciable acute abnormality. Electronically authenticated by: ROSALINO WHITLEY Date: 07/30/2024 06:40 Dictated By: Rosalino Whitley M.D. Signed By: 07/30/24641 DD/ 9 TD/TT: Gear Machinist: [place] [address] XRay Report Signed Patient: ISABEL TEJADA MR#: [id number] : 1955 Acct:[id number] Age/Sex: 69 / F ADM Date: 07/28/24 Loc: EC Attending Dr: Miguel Tenorio D.P.M. Ordering Physician: Miguel Tenorio D.P.M. Date of Service: 07/28/24 Procedure(s): XR boaz t RT min 3V Accession Number(s): [id number] cc: Miguel Tenorio D.P.M.; Physician,Non-Staff Miguel A [place] [id number] Patient Name: MELBA TEJADA MRN: [facility]:[id number] date: 1955 Sex: F Assigned Patient Loc ation: EC Current Patient Location: Accession/Order Numb er: [id number] Exam Date: 07/28/2024 12:34 Report Date: 07/30/2024 06:40 At the request of: MIGUEL TENORIO Procedure: XR foot R T min 3V PROCEDURE: XR foot R T min 3V HISTORY: RIGHT FOOT PAIN COMPARISON: XR foot right 05/08/2022 FINDINGS: BONES:Stable, chroni c marked medial deviation of the first toe. Prior osteotomy and repair of distal first metatarsal. Single screw within head of second metatarsal. Possible prior bunionectomy. Mild degenerative changes of the third metatarsophalangeal joint and resection of the head of the third proximal phalanx. Small calca jostin plantar spur. SOFT TISSUES:No visi ble soft tissue swelling. EFFUSION:None visible. OTHER: Negative. X R/XR foot RT min 3V IMPRESSION: 1. Stable chronic ch anges detailed above. No appreciable acute abnormality. Electronically authenticated by: ROSALINO WHITLEY Date: 07/30/2024 06:40 Dictated By: Rosalino Whitley M.D. Signed By: 07/30/24641 DD/ 9 TD/TT: Gear Machinist: XR foot RT min 3V (Not yet r eviewed by provider) Interpretation: Performing Lab: Notes/Report: Source Facility: [place] [address] XRay Report Signed Patient: MELBA TEJADA MR#: [id number] : 1955 Acct:[id number] Age/Sex: 69 / F ADM Date: 10/12/24 Loc: RAD Attending Dr: Miguel Tenorio D.P.M. Ordering Physician: Miguel Tenorio D.P.M. Date of Service: 10/12/24 Procedure(s): XR foot RT min 3V Accession Number(s): [id number] cc: Miguel Tenorio D.P.M.; Physician,Non-Staff Miguel A [facility] [place] [address] Patient Name: MELBA TEJADA MRN: [id number]:[id number] date: 1955 Sex: F Assigned Patient Location: RAD Current Patient Location: Accession/Order Number: [id number] Exam Date: 10/12/2024 12:30 Report Date: 10/14/2024 04:33 At the request of: MIGUEL TENORIO Procedure: XR foot RT min 3V PROCEDURE: XR foot RT min 3V HISTORY: right foot pain COMPARISON: XR foot right 09/21/2024 FINDINGS: BONES:Prior mechanical fusion of the first metatarsophalangeal joint via dorsal plate and screws. Single screw within head of second metatarsal. Degenerative changes versus prior resection of distal articular surface of the third proximal phalanx. Osseous fusion of the second toe proximal interphalangeal joint. Small calcaneal plantar spur. SOFT TISSUES:No visible soft tissue swelling. EFFUSION:None visible. OTHER: Negative. XR/XR foot RT min 3V IMPRESSION: 1. Stable surgical changes and degenerative changes. No evidence of hardware failure or change in alignment. Electronically authenticated by: ROSALINO WHITLEY Date: 10/14/2024 04:33 Dictated By: Rosalino Whitley M.D. Signed By: 10/14/24435 DD/ 2 TD/TT: Gear Machinist: [place] [address] XRay Report Signed Patient: ISABEL TEJADA MR#: [id number] : 1955 Acct:[id number] Age/Sex: 69 / F ADM Date: 10/12/24 Loc: RAD Attending Dr: Miguel Tenorio D.P.M. Ordering Physician: Miguel Tenorio D.P.M. Date of Service: 10/12/24 Procedure(s): XR obaz t RT min 3V Accession Number(s): [id number] cc: Miguel Tenorio D.P.M.; Physician,Non-Staff Miguel A [place] [address] Patient Name: MELBA TEJADA MRN: [facility]:[id number] date: 1955 Sex: F Assigned Patient Loc ation: RAD Current Patient Location: Accession/Order Numb er: [id number] Exam Date: 12:30 Report Date: 10/14/2024 04:33 At the request of: MIGUEL TENORIO Procedure: XR foot R T min 3V PROCEDURE: XR foot R T min 3V HISTORY: right foot pain COMPARISON: XR foot right 09/21/2024 FINDINGS: BONES:Prior siding mechanic al fusion of the first metatarsophalangeal joint via dorsal plate and screws. Si ngle screw within head of second metatarsal. Degenerative changes versus prior resection of distal articular surface of the third proximal phalanx. Os seous fusion of the second toe proximal interphalangeal joint. Small calcane al plantar spur. SOFT TISSUES:No visi ble soft tissue swelling. EFFUSION:None visible. OTHER: Negative. X R/XR foot RT min 3V IMPRESSION: 1. Stable surgical c hanges and degenerative changes. No evidence of hardware failure or change in alignment. Electronically authenticated by: ROSALINO WHITLEY Date: 10/14/2024 04:33 Dictated By: Rosalino Whitley M.D. Signed By: 10/14/24435 DD/ 2 TD/TT: Gear Machinist: XR foot RT min 3V (Not yet r eviewed by provider) Interpretation: Performing Lab: Notes/Report: Source Facility: [place] [address] XRay Report Signed Patient: MELBA TEJADA MR#: [id number] : 1955 Acct:[id number] Age/Sex: 69 / F ADM Date: 08/26/24 Loc: SURGOUT Attending Dr: Miguel Tenorio D.P.M. Ordering Physician: Miguel Tenorio D.P.M. Date of Service: 08/26/24 Procedure(s): XR foot RT min 3V Accession Number(s): [id number] cc: Miguel Tenorio D.P.M.; Physician,Non-Staff M.DIvan [place] [address] Patient Name: MELBA TEJADA MRN: [id number]:[id number] date: 1955 Sex: F Assigned Patient Location: [facility] Current Patient Location: [facility] Accession/Order Number: [id number] Exam Date: 08/26/2024 10:38 Report Date: 08/29/2024 08:34 At the request of: MIGUEL TENORIO Procedure: XR foot RT min 3V PROCEDURE: XR foot RT min 3V HISTORY: hallux varus COMPARISON: XR foot right 07/28/2024 FINDINGS: BONES:Osseous fusion the first metatarsophalangeal joint via dorsal plate and screws. Single screw within head of second metatarsal. SOFT TISSUES:Images were obtained to cast material which limits evaluation. EFFUSION:None visible. OTHER: Negative. XR/XR foot RT min 3V IMPRESSION: 1. Surgical repair and fusion of first metatarsophalangeal joint with significantly improved alignment. Electronically authenticated by: ROSALINO WHITLEY Date: 08/29/2024 08:34 Dictated By: Rosalino Whitley M.D. Signed By: 08/29/24835 DD/ 3 TD/TT: Gear Machinist: [place] [address] XRay Report Signed Patient: ISABEL TEJADA MR#: [id number] : 1955 Acct:[id number] Age/Sex: 69 / F ADM Date: 08/26/24 Loc: [facility] Attending Dr: Miguel Tenorio D.P.M. Ordering Physician: Miguel Tenorio D.P.M. Date of Service: 08/26/24 Procedure(s): XR boaz t RT min 3V Accession Number(s): [id number] cc: Miguel Tenorio D.P.M.; Physician,Non-Staff Miguel A [place] [address] Patient Name: MELBA TEJADA MRN: [facility]:[id number] date: 1955 Sex: F Assigned Patient Loc ation: [facility] Current Patient Loca tion: [facility] Accession/Order Numb er: [id number] Exam Date: 10:38 Report Date: 08/29/2024 08:34 At the request of: MIGUEL TENORIO Procedure: XR foot R T min 3V PROCEDURE: XR foot R T min 3V HISTORY: hallux varus COMPARISON: XR foot right 07/28/2024 FINDINGS: BONES:Osseous fusion the first metatarsophalangeal joint via dorsal plate and screws. Single screw within head of second metatarsal. SOFT TISSUES:Images were obtained to cast material which limits evaluation. EFFUSION:None visible. OTHER: Negative. X R/XR foot RT min 3V IMPRESSION: 1. Surgical repair a nd fusion of first metatarsophalangeal joint with significantly improv ed alignment. Electronically authenticated by: ROSALINO WHITLEY Date: 08/29/2024 08:34 Dictated By: Rosalino Whitley M.D. Signed By: 08/29/24835 DD/ 3 TD/TT: Gear Machinist: XR foot RT min 3V (Not yet r eviewed by provider) Interpretation: Performing Lab: Notes/Report: Source Facility: [place] [address] [place] [address] XRay Report Signed Patient: MELBA TEJADA MR#: [id number] : 1955 Acct:[id number] Age/Sex: 69 / F ADM Date: 11/23/24 Loc: RAD Attending Dr: Miguel Tenorio D.P.M. Ordering Physician: Miguel Tenorio D.P.M. Date of Service: 11/23/24 Procedure(s): XR foot RT min 3V Accession Number(s): [id number] cc: Miguel Tenorio D.P.M.; Physician,Non-Staff Miguel A [facility] [place] [address] Patient Name: MELBA TEJADA MRN: [facility]:[id number] date: 1955 Sex: F Assigned Patient Location: [facility] Current Patient Location: Accession/Order Number: [id number] Exam Date: 11/23/2024 14:15 Report Date: 11/24/2024 22:28 At the request of: MIGUEL TENORIO Procedure: XR foot RT min 3V EXAM: XR foot RT min 3V HISTORY: Right Foot Pain COMPARISON: 10/12/2024 FINDINGS/IMPRESSION: 1. Plate and screw fixation of the first metatarsophalangeal joint. Osteotomy fixation screw of the second metatarsal head. 2. Mild degeneration of the interphalangeal joints. 3. Achilles tendon plantar enthesophyte. 4. Mild degeneration of the mid foot. 5. Mild subcutaneous soft tissue edema about the forefoot. Electronically authenticated by: KEVIN COATS Date: 11/24/2024 22:28 Dictated By: Kevin Coats M.D. Signed By: 11/24/242317 DD/ 27 TD/TT: Gear Machinist: [place] [address] XRay Report Signed Patient: ISABEL TEJADA MR#: [id number] : 1955 Acct:[id number] Age/Sex: 69 / F ADM Date: 11/23/24 Loc: [facility] Attending Dr: Miguel Tenorio D.P.M. Ordering Physician: Miguel Tenorio D.P.M. Date of Service: 11/23/24 Procedure(s): XR boaz t RT min 3V Accession Number(s): [id number] cc: Miguel Tenorio D.P.M.; Physician,Non-Staff Miguel A [place] [address] Patient Name: MELBA TEJADA MRN: [id number]:[id number] date: 1955 Sex: F Assigned Patient Loc ation: RAD Current Patient Location: Accession/Order Numb er: [id number] Exam Date: 11/23/2024 14:15 Report Date: 11/24/2024 22:28 At the request of: MIGUEL TENORIO Procedure: XR foot R T min 3V EXAM: XR foot RT min 3V HISTORY: Right Foot Pain COMPARISON: 10/12/2024 FINDINGS/IMPRESSION: 1. Plate and screw fixation of the first metatarsophalangeal joint. Osteotomy fixation screw of th e second metatarsal head. 2. Mild degeneration of the interphalangeal joints. 3. Achilles tendon p lantar enthesophyte. 4. Mild degeneration of the mid foot. 5. Mild subcutaneous soft tissue edema about the forefoot. Electronically authenticated by: KEVIN COATS Date: 11/24/2024 22:28 Dictated By: Enedina Coats M.D. Signed By: 11/24/242317 DD/ 27 TD/TT: Gear Machinist: XR Foot RT (3 views) * Reviewed date:11/01/2024 01:18:15 PM Interpretation: Performing Lab: Notes/Report: XR foot RT min 3V (Not yet r eviewed by provider) Interpretation: Performing Lab: Notes/Report: Source Facility: [place] [address] [place] [address] XRay Report Signed Patient: MELBA TEJADA MR#: [id number] : 1955 Acct:[id number] Age/Sex: 70 / F ADM Date: 03/09/25 Loc: RAD Attending Dr: Miguel Tenorio D.P.M. Ordering Physician: Miguel Tenorio D.P.M. Date of Service: 03/09/25 Procedure(s): XR foot RT min 3V Accession Number(s): [id number] cc: Miguel Tenorio D.P.M.; Physician,Non-Staff M.Juana [facility] [place] [address] Patient Name: MELBA TEJADA MRN: [id number]:[id number] date: 1955 Sex: F Assigned Patient Location: [facility] Current Patient Location: [facility] Accession/Order Number: [id number] Exam Date: 03/09/2025 15:02 Report Date: 03/09/2025 15:05 At the request of: MIGUEL TENORIO DPM Procedure: XR foot RT min 3V RIGHT FOOT - 3 views CLINICAL HISTORY: Follow-up right foot surgery COMPARISON: Right foot 11/23/2024 FINDINGS: There appears be soft tissue swelling involving the first digit. There appears to be a fracture involving the plate transversing the first MTP joint. Plantar spurring. XR/XR foot RT min 3V IMPRESSION: FRACTURE INVOLVING THE PLATE TRANSVERSING THE FIRST MTP JOINT WHEN COMPARED TO THE PRIOR STUDY. Impression dictated by: Amrik Conner Jr., D.O. 03/09/2025 3:05 PM Dictation Location: [place] [address] Electronically authenticated by: [id number] Y Date: 03/09/2025 15:05 Dictated By: Amrik Conner M.D. Signed By: 03/09/25 1508 DD/ 04 TD/TT: Gear Machinist: The [address] [address] XRay Report Signed Patient: ISBAEL TEJADA MR#: [id number] : 1955 Acct:[id number] Age/Sex: 70 / F ADM Date: 03/09/25 Loc: RAD Attending Dr: Miguel Tenorio D.P.M. Ordering Physician: Miguel Tenorio D.P.M. Date of Service: 03/09/25 Procedure(s): XR boaz t RT min 3V Accession Number(s): [id number] cc: Miguel Tenorio D.P.M.; Physician,Non-Staff Miguel A [place] [address] Patient Name: MELBA TEJADA MRN: [id number] date: 1955 Sex: F Assigned Patient Loc ation: RAD Current Patient Loca tion: RAD Accession/Order Numb er: [id number] Exam Date: 03/09/2025 15:02 Report Date: 03/09/2025 15:05 At the request of: MIGUEL TENORIO DPM Procedure: XR foot R T min 3V RIGHT FOOT - 3 views CLINICAL HISTORY: Follow-up right foot surgery COMPARISON: Right fo ot 11/23/2024 FINDINGS: There appears be sof t tissue swelling involving the first digit. There appears to be a frac ture involving the plate transversing the first MTP joint. Plantar spurring. X R/XR foot RT min 3V IMPRESSION: FRACTURE INVOLVING T HE PLATE TRANSVERSING THE FIRST MTP JOINT WHEN COMPARED TO THE PRIOR STUDY. Impression dictated by: Amrik Conner Jr., D.OIvan 03/09/2025 3:05 PM Dictation Location: [place] [address] Electronically authenticated by: [id number] Y Date: 03/09/2025 15:05 Dictated By: Amrik Conner M.D. Signed By: 03/09/25 1508 DD/ 1505 TD/TT: Gear Machinist: XR Foot RT (3 views) * Reviewed date:11/01/2024 01:29:07 PM Interpretation: Performing Lab: Notes/Report: XR Foot RT (3 views) * Reviewed date:11/01/2024 02:40:25 PM Interpretation: Performing Lab: Notes/Report: Reason For Referral No Information Medications Medication SIG (Take, Route, Frequency, Duration) Notes Start Date End Date Status Cymbalta 20 MG 1 capsule Orally Onc e a day Active Lisinopril 20 MG 1 tablet Orally Once a day Active HYDROcodone-Acetaminophen 5-325 MG 1 tablet as needed Orally every 6 hrs for 7 days 08/26/2024 Unknown Ondansetron HCl 4 MG 1 tablet Orally eli ry 6 hours for 7 days 08/26/2024 Unknown Aspirin 325 MG 1 tablet Orally bid for 30 days 08/26/2024 Unknown Bactrim DS 800-160 MG 1 tablet Orally bi d for 5 days 08/26/2024 Unknown Social History Tobacco Use: Social History Observation Description Date Details (start date - stop date) Never Smoker NA - NA Tobacco Control (Standard) Question Answer Notes Tobacco use: Nonsmoker Problems Problem Type SNOMED Code ICD Code Onset Dates Problem Status W/U Status Risk Notes Problem [id number] Hallux varus (acquired), right foot (M20.31) Active confirmed Problem 941130138 Other hammer toe(s) (acquired), right foot (M20.41) Active confirmed Problem 798054391 Presence of functional implant, unspecified (Z96.9) Active confirmed Problem Right foot pain (M79.671) Active confirmed Vital Signs Heart Rate 52 /min 11/23/2024 Temperature 96.3 degrees Fahrenheit 11/23/2024 Oximetry 92 % 11/23/2024 Height 66 in 11/23/2024 Weight 205 lbs 09/02/2024 BMI 33.08 kg/m2 09/02/2024 Encounters Encounter Location Date Provider Diagnosis [facility] [address] [facility] [place] [address] 08/26/2024 Miguel Tenorio [facility] [address] [facility] [place] [address] 08/26/2024 Miguel Tenorio [facility] ([facility]) [address] [place] [address] [place] [address] 07/28/2024 Miguel Tenorio Hallux varus (acquired), right foot M20.31 ; Other deformities of toe(s) (acquired), right foot M20.5X1 ; Right foot pain M79.671 ; Presence of functional implant, unspecified Z96.9 and Other hammer toe(s) (acquired), right foot M20.41 [facility] ([facility]) [address] [place] [address] [place] [address] 10/12/2024 Miguel Tenorio Right foot pain M79.671 and Hallux varus (acquired), right foot M20.31 [facility] (PODIATRY) [address] [place] [address] [place] [address] 11/23/2024 Deisy Penasco Hallux varus (acquired), right foot M20.31 ; Other hammer toe(s) (acquired), right foot M20.41 and Right foot pain M79.671 [facility] (PODIATRY) [address] [place] [address] [place] [address] 09/02/2024 Deisy Alan Hallux varus (acquired), right foot M20.31 ; Other hammer toe(s) (acquired), right foot M20.41 and Other deformities of toe(s) (acquired), right foot M20.5X1 [facility] (PODIATRY) [address] [place] [address] [place] [address] 09/21/2024 Miguel Tenorio Right foot pain M79.671 and Hallux varus (acquired), right foot M20.31 [facility] [address] [place] [phone] 08/26/2024 Miguel Tenorio Assessments Encounter Date Diagnosis (ICD Code) Assessment Notes Treatment Notes Treatment Clinical Notes Section Notes 07/28/2024 Hallux varus (acquired), right foot (ICD-10 - M20.31) Patient was seen and evaluated. Patient's condition was provided and all questions were answered to satisfaction. I reviewed x-rays and physical exam findings. Patient underwent bunionectomy and second hammertoe surgery including second metatarsal osteotomy [place] [address] Yepez. Unfortunately she was overcorrected resulting in hallux varus and hallux malleus with contracture of the extensor tendon. Second toe also has contracture in elevatus and slight valgus and is unable to purchase the ground when in stance. She has daily pain and has difficulty finding shoes to fit. Patient would like to undergo reconstructive surgery and I recommended: Right first metatarsal phalangeal joint fusion, removal of deep implanted hardware, possible hallux IPJ arthroplasty and extensor tenotomy, bone graft as needed; release of second MPJ capsule with soft tissue balancing as needed I reviewed the possible complications which include but not limited to infection, wound healing issue, numbness and tingling, bleeding, blood clot, pain, need for additional surgery.Other possible complications include malunion, nonunion, delayed union and painful hardware. Postoperative course was reviewed and the patient will likely be: Nonweightbearing for 1 to 3 weeks -patient will require at minimum 2 to 3 weeks off of work Patient will be: outpatient postoperatively Proposed anesthesia: General And regional Proposed implants: Medline 07/28/2024 Other deformities of toe(s) (acquired), right foot (ICD-10 - M20.5X1) 09/21/2024 Right foot pain (ICD-10 - M79.671) 09/21/2024 Hallux varus (acquired), right foot (ICD-10 - M20.31) Patient follows up following first MPJ refusion with correction of second and third toes. She is doing well and sutures were discontinued today. She may continue weightbearing as tolerated in the cam boot for the next 3 weeks. No driving. She will follow-up in 3 weeks with weightbearing x-rays and hopeful transition to normal shoes 10/12/2024 Right foot pain (ICD-10 - M79.671) [...] weightbearing foot x-rays call sooner if needed 11/23/2024 Hallux varus (acquired), right foot (ICD-10 - M20.31) The patient is 12 weeks status post right 1st metatarsal phalangeal joint fusion with extensor tendon lengthening, capsulotomy , 2nd metatarsal phalangeal joint and exostectomy 3rd proximal inner phalangeal joint DOS 08/26/24. She is doing well. No evidence of infection or DVT on examination. She Has successfully transition to normal shoes and has almost no pain.X-rays were reviewed and are satisfactory.She may continue to increase activities at her tolerance.Follow-up in 3 months, sooner if any issues arise. I would like weightbearing foot x-rays at follow-up. 11/23/2024 Other hammer toe(s) (acquired), right foot (ICD-10 - M20.41) 09/02/2024 Hallux varus (acquired), right foot (ICD-10 - M20.31) The patient is 1 week status post right 1st metatarsal phalangeal joint fusion with extensor tendon lengthening, capsulotomy , 2nd metatarsal phalangeal joint and exostectomy 3rd proximal inner phalangeal joint DOS 08/26/24. She is doing well. No evidence of infection or DVT on examination. She was transitioned to a cam boot. She may begin protected weightbearing in the boot as symptoms allow. RICE therapy and elevation encouraged. She may shower in a seated position, no soaking. Follow-up in 2 weeks, sooner if any issues arise. I would like simulated weightbearing foot x-rays at follow-up. 09/02/2024 Other hammer toe(s) (acquired), right foot (ICD-10 - M20.41) 09/02/2024 Other deformities of toe(s) (acquired), right foot (ICD-10 - M20.5X1) 11/23/2024 Right foot pain (ICD-10 - M79.671) 07/28/2024 Right foot pain (ICD-10 - M79.671) 07/28/2024 Presence of functional implant, unspecified (ICD-10 - Z96.9) 07/28/2024 Other hammer toe(s) (acquired), right foot (ICD-10 - M20.41) Plan Of Treatment Pending Test Test Name Order Date XR Foot RT (3 views) * 11/23/2024 CBC AUTO DIFF 08/16/2024 PROF CHEM 8 (BAS METB) 08/16/2024 PTT 08/16/2024 XR foot RT min 3V 07/30/2024 XR foot RT min 3V 08/29/2024 XR foot RT min 3V 09/23/2024 XR foot RT min 3V 10/14/2024 XR foot RT min 3V 11/24/2024 XR foot RT min 3V 03/09/2025 Prothrombin Time INR 08/16/2024 FL fluoroscopy <1hr NON-READ 08/27/2024 Insurance Providers Payer Name Payer Address Payer Phone Subscriber Number Group Number Insured Name Patient Relationship to Insured Coverage Start Date Coverage End Date MEDICARE [place] [address] [phone] [id number] Melba Tejada Self - patient is the insured [facility] [employer] [address] [address] [place] [address] [id number] Melba Tejada Self - patient is the insured Medical (General) History Surgical History Surgery Date(Month/Year) pacemaker 2023 gallbladder removal 2023 Bunionectomy/ hammer toe correction 2-3 2019 hip replacement 2019 right 1st metatarsal phalang eal joint fusion with extensor tendon lengthening capsulotomy, 2nd metatarsal phalangeal joint and exostectomy 3rd proximal inner phalangeal joint Dr Tenorio 08/26/24
--- OUTSIDE RECORDS SUMMARY | 2025-06-29 15:05 | XMS_ITS | Encounter Summary ---
Author Organization [facility] Address [address] [place] [address] Care Team Providers Care Advanced Clinical Specialist Name Role Phone Beatrice Barnes NP Primary Care Provider [phone] Encounter Details Date Type Department Care Team (Late st Contact Info) Description 04/17/2025 Orders Only [facility] [address] [place] [address] Winston Eller MD [address] [place] [address] Social History Tobacco Use Types Packs/Day Years Used Date Smoking Tobacco: Every Day Cigarettes Smokeless Tobacco: Never Alcohol Use Standard Drinks/Week Comments Not Currently 0 (1 standard drink = 0.6 oz pur e alcohol) occasional C Utilities Answer Date Recorded In the past 12 months has e [employer], gas, oil, or water [employer] threatened to shut off services in your [...] place to sleep or slept in a nursing home (including now)? No 05/27/2024 Hunger Vital Sign [...] on file documented as of this encounter Plan of Treatment Upcoming Encounters Date Type Department Care Team (Late st Contact Info) Description 09/06/2025 9:00 AM EST Ancillary Procedure [facility] [address] [place] [phone] 09/06/2025 9:15 AM EST Office Visit [facility] [address] [place] [address] Winston Eller MD [address] [place] [phone] documented as of this encounter Procedures Procedure Name Priority Date/Time Associated Diagnosis Comments CARDIAC DEVICE CHECK - REMOTE - PACEMAKER Routine 04/17/2025 12:00 AM EDT documented in this encounter Results * Cardiac device check - Remote pacemaker (04/17/2025 12:00 AM EDT) Anatomical Region Laterality Modality Other 04/17/2025 Winston Eller MD CV IMPLANTABLE CARDIAC DEVICE WI OCEDURES Final Result documented in this encounter Visit Diagnoses Not on filedocumented in this encounter Care Teams Advanced Clinical Specialist Relationship Specialty Start Date End Date [facility] [address] [place] [address] [place] [phone] PCP - General Family Medicine 05/03/24 documented as of this encounter
--- OUTSIDE RECORDS SUMMARY | 2025-06-29 15:05 | XMS_ITS | Clinical Summary ---
Author Organization [facility] Address [address] [place] [address], [address] [place] [address] Care Team Providers Care Supervisor Nuclear Medicine Name Role Phone Unavailable Primary Care Provider Unavailabl e Allergies Active Allergy Reactions Criticality Noted Date Comments Iodine Swelling 09/30/2023 Cat Scan Dye Penicillins Anaphylaxis High 09/30/2023 Medications DULoxetine (CYMBALTA) 60 MG extended release capsule Take 1 capsule by mouth daily Active Social History Tobacco Use Types Packs/Day Years Used Date Smoking Tobacco: Every Day Cigarettes Smokeless Tobacco: Never Alcohol Use Standard Drinks/Week Comments Not Currently 0 (1 standard drink = 0.6 oz pur e alcohol) Interpersonal Safety Domain Source: IP Abuse Scr eening Answer Date Recorded Read-Only, Retired: Physical Abuse Denies 10/03/2023 Read-Only, Retired: Verbal Abuse Denies 10/03/2023 Read-Only, Retired: Emotional abuse Denies 10/03/2023 Read-Only, Retired: Financial Abuse Denies 10/03/2023 Read-Only, Retired: Sexual abuse Denies 10/03/2023 Comments No Sex and Gender Information Value Date Recorded Sex Assigned at Not on file Legal Sex Female 10:45 AM EST Gender Identity Not on file Sexual Orientation Not on file Last Filed Vital Signs Vital Sign Reading Time Taken Comments Blood Pressure 136/72 10/03/2023 3:40 PM EST Pulse 54 10/03/2023 3:40 PM EST Temperature 36.7 C (98.1 F) 10/03/2023 12:04 PM EST Respiratory Rate 15 10/03/2023 3:40 PM EST Oxygen Saturation 93% 10/03/2023 3:40 PM EST Inhaled Oxygen Concentration - - Weight 100.2 kg (221 lb) 10/03/2023 12:04 PM EST Height 167.6 cm (5' 6 ) 10/03/2023 12:04 PM EST Body Mass Index 35.67 10/03/2023 12:04 PM EST Plan of Treatment Health Maintenance Due Date Last Done Comments Depression Screen 1967 Hepatitis C screen 1973 DTaP/Tdap/Td vaccine (1 - Tdap) 1974 Breast cancer screen 1995 Lipids 1995 Colonoscopy 02/22/2000 Colorectal Cancer Screen 02/22/2000 FIT/FOBT: Average risk 02/22/2000 Fecal-DNA (Cologuard): Average risk 02/22/2000 Sigmoidoscopy/CT colonography 02/22/2000 Shingles vaccine (1 of 2) 2005 DEXA (modify frequency per FRAX score) 2010 Pneumococcal 50+ years Vaccine (2 of 2 - PPSV23, PCV20, or PCV21) 11/27/2021 10/02/2021 Annual Wellness Visit (Medicare) 09/30/2023 COVID-19 Vaccine (3 - season) 2024 02/02/2021, 01/12/2021 Flu vaccine (#1) 06/03/2025 08/12/2023, , 08/10/2020, Additional history exists Respiratory Syncytial Virus (RSV) or age 60 yrs+ (1 - 1-dose 75+ series) 2030 Hepatitis A vaccine Aged Out No longe r eligible based on patient's age to complete this topic Hepatitis B vaccine Aged Out No longe r eligible based on patient's age to complete this topic Hib vaccine Aged Out No longer eligi ble based on patient's age to complete this topic Meningococcal (ACWY) vaccine Aged Out No longer eligible based on patient's age to complete this topic Meningococcal B vaccine Aged Out No l onger eligible based on patient's age to complete this topic Polio vaccine Aged Out No longer elig ible based on patient's age to complete this topic Medical Devices Implanted Type Area Last Repairer Device Identifier Shelf Expiration Date Model / Serial / Lot Plate Bne [id number] Std 9 H R Dst Rad Volar S Stl [place] Ang - [id number] Implanted:Qty: 1 on 10/03/2023 by Rosalino Griffin MD at [facility] Right: Wrist DEPU[employer] [facility] [id number] / / Description:From our distal radius tray. Screw Bne L20mm Dia2.4mm Dst Rad Volar S Stl [facility] [place] Ang [place] - [id number] Implanted:Qty: 2 on 10/03/2023 by Rosalino Griffin MD at [facility] Right: Wrist [employer] [facility] [id number] / / Description:From our distal radius tray. Screw Bne L18mm Dia2.4mm Dst Rad Volar S Stl [facility] [place] Ang [place] - [id number] Implanted:Qty: 2 on 10/03/2023 by Rosalino Griffin MD at [facility] Right: Wrist [employer] [facility] [id number] / / Description:From our distal radius tray. Screw Bne L14mm Dia2.4mm Dst Rad Volar S Stl [facility] [place] Ang [place] - [id number] Implanted:Qty: 2 on 10/03/2023 by Rosalino Griffin MD at [facility] Right: Wrist [employer] [facility] [id number] / / Description:From our distal radius tray. Screw Bne L12mm Dia2.4mm Dst Rad Volar S Stl [facility] [place] Ang [place] - [id number] Implanted:Qty: 2 on 10/03/2023 by Rosalino Griffin MD at [facility] Right: Wrist [employer] [facility] [id number] / / Description:From our distal radius tray. Screw Bne L14mm Dia2.7mm Conrado S Stl St T8 Stardrv Recess - [id number] Implanted:Qty: 1 on 10/03/2023 by Rosalino Griffin MD at [facility] Right: Wrist [employer] [facility] [id number] / / Description:From our distal radius tray. Explanted Type Area Last Repairer Device Identifier Shelf Expiration Date Model / Serial / Lot K Wire Fix L150mm Dia1.25mm S Stl Trcr Pnt - [id number] Explanted:Qty: 1 on 10/03/2023 by Rosalino Griffin MD at [facility] Right: Wrist DE[employer]-WD [id number] / / Description:Pack of 10 opene d, 4 utilized out of pack implanted and explanted Total used set to 1 for billing purposes Screw Bne L16mm Dia2.7mm Conrado S Stl St T8 Stardrv Recess - [id number] Explanted:Qty: 1 on 10/03/2023 by Rosalino Griffin MD at [facility] Right: Wrist DE[employer] SY[employer] [id number] / / Description:From our distal radius tray. Insurance [facility]
--- OUTSIDE RECORDS SUMMARY | 2025-06-29 15:05 | XMS_ITS | Encounter Summary ---
Author Organization [facility] Address [address] [place] [address] Care Team Providers Care Mesmerist Name Role Phone Unavailable Primary Care Provider Unavailabl e Encounter Details Date Type Department Care Team (Late st Contact Info) Description 06/29/2025 Kaushikboo flowsheet [facility] [address] [place] [address] Joelle Hart, NETO [address] [facility] [place] [address] Social History Tobacco Use Types Packs/Day Years Used Date Smoking Tobacco: Never Assessed Comments No Sex and Gender Information Value Date Recorded Sex Assigned at Not on file Legal Sex Female 6:50 PM EDT Gender Identity Not on file Sexual Orientation Not on file documented as of this encounter Plan of Treatment Not on file documented as of this encounter Visit Diagnoses Not on filedocumented in this encounter
[2025-07-01 15:09] LABS: Age Gdln ACOG Testing Note (.); Pap IG (Image Guided) Note (.)
== END 2025-06-29 15:02 | disposition home or self-care (01) ==
LOC: LAB 15:01
PROVIDERS: Visit Provider Nurse Practitioner Family
DX: Z01.419 Encounter for gynecological examination (general) (routine) without abnormal findings (principal)
CPT/HCPCS: 88175